=== PATIENT | male | born 1965 | race African-American/Black ===

== ENCOUNTER 2016-06-20 05:29 | Emergency (ER) | payer MEDICAID, OTHER ==
[~2016-06-20 05:29] MED LIST: ABIL5TAB5 PO; AMBI10TA PO; COLA100C PO; DOCU10CA PO; ECOT81TA5 PO; LAMI25TA PO; LAMICTAL PO; LIPI80TA PO; MAPA325T2 PO; METF500T PO; PREG50CA PO; QUET1TAB11 PO; RISP2TAB30 PO; RISP3TAB3 PO; RISP50INJ IM; SERO1TAB PO; SERO1TAB2 PO; TRAZ300T2 PO; ZEST1TAB5 PO
[2016-06-20] MEDS ORDERED: dexameTHASONE 20 MG/5 ML VIAL (J1100) As Ordered ONE (05:49)
[2016-06-20] MEDS ORDERED: LEVALBUTEROL 1.25 MG/0.5 ML CONCENTRATE NEB As Ordered ONE (05:50)
--- NOTE | 2016-06-20 06:51 | EDDOCDS ---
Physician Documentation [facility] Name: Akbar Ulloa Age: 51 yrs Sex: Male : 1965 Arrival Date: 06/20/2016 Time: 05:29 Bed 5 Private MD: Disposition: 06/20/16 06:39 Discharged to Home/Self Care. Impression: Simple chronic bronchitis, Nicotine dependence, cigarettes, Hallucinogen abuse. - Condition is Stable. - Prescriptions for Prednisone 20 mg Oral Tablet - take 3 tablet by ORAL route once daily for 5 days; 15 tablet. - Medication Reconciliation, Local Pharmacy Hours form. - Follow up: Private Physician; When: Call to arrange an appointment; Reason: Recheck today's complaints. - Problem is chronic. - Symptoms have improved. Historical: - Allergies: No known drug Allergies; - Home Meds: 1. lisinopril 5 mg Oral tab once daily 2. metformin 1,000 mg Oral tr24 1 tab once daily 3. Seroquel 400 mg Oral tab 4. trazodone 300 mg Oral tab 1 tab - PMHx: Diabetes - NIDDM: controlled; Bipolar disorder; Schizophrenia; - PSHx: finger surgery; - Social history: Smoking status: Patient uses tobacco products, heavy tobacco smoker. Patient uses alcohol street drugs, [place], No barriers to communication noted, The patient speaks fluent Djiboutian, Speaks appropriately for age. - Family history: Not pertinent. - : The pt / caregiver states he / she is not on anticoagulants. Home medication list is obtained from the patient. - Exposure Risk Screening:: None identified. Vital Signs: 06/20 05:40 BP 151 / 97; Pulse 118; Resp 22; Temp 96.9(O); Pulse Ox 99% on 2 lpm NC; Weight 145.6 nn1 kg / 320.99 lbs; Height 6 ft. 0 in. (182.88 cm); Pain 0/10; 06:43 BP 148 / 88; Pulse 99; Resp 18 S; Temp 97.0(TE); Pulse Ox 96% on R/A; af2 05:40 Body Mass Index 43.53 (145.60 kg, 182.88 cm) nn1 MDM: 05:44 IV Saline Lock ordered. cs11 05:44 Dexamethasone 15 mg IV at bolus once ordered. cs11 05:44 Levalbuterol 1.25 mg Nebulizer every 15 minutes x3 ordered. cs11 05:44 Call Respiratory ordered. cs11 05:44 Chest, 1 View Ordered. EDMS 05:45 Call Respiratory complete. ml3 05:47 ECG WITH READING ER PHYS+CARDIAG ordered. EDMS 06:14 Financial registration complete. pm4 06:22 [facility] Payment Agreement was scanned into [employer] and attached to record. pm4 Administered Medications: 05:52 Drug: Levalbuterol 1.25 mg [levalbuterol 1.25 mg/0.5 mL solution for nebulization (0.5 bb3 mL)] Route: Nebulizer; 05:52 Drug: Levalbuterol 1.25 mg [levalbuterol 1.25 mg/0.5 mL solution for nebulization (0.5 bb3 mL)] Route: Nebulizer; 05:55 Drug: Dexamethasone 15 mg [dexamethasone 4 mg/mL injection solution] Route: IV; Rate: af2 bolus; Site: left antecubital; 06:13 Drug: Levalbuterol 1.25 mg [levalbuterol 1.25 mg/0.5 mL solution for nebulization (0.5 bb3 mL)] Route: Nebulizer; 06:14 Follow up: lung sounds increased throughout with coarse expiratory wheezes in all bb3 malhotra. Pt states his breathing feels better. Pt has a strong hacking non productive cough Signatures: Dispatcher MedHost EDMS Lo GerberMichaelaMeka, Investigative Agent Unit ml3 Joe Nunez, DO DO cs11 Genoveva Boothe RN RN af2 Raghav Shipley RN RN nn1 Eze Vigil, Reg Reg pm4 Jose Willis bb3 The chart was reviewed and I authenticate all verbal orders and agree with the evaluation and treatment provided.Attachments: 06:22 [facility] Payment Agreement pm4 MTDD
--- NOTE | 2016-06-20 06:51 | EDDOCDS ---
Nurse's Notes [facility] Name: Akbar Ulloa Age: 51 yrs Sex: Male : 1965 Arrival Date: 06/20/2016 Time: 05:29 Bed 5 Private MD: Diagnosis: Simple chronic bronchitis;Nicotine dependence, cigarettes;Hallucinogen abuse Presentation: 06/20 05:34 Presenting complaint: EMS states: SOB that began around 0230, patient has hx of chronic nn1 bronchitis. Patient admits to "2 20 pieces of leona" and drinking alcohol. Patient alert and oriented x 3. Patient denies chest pain. Adult Sepsis Screening: The patient does not have new or worsening altered mentation. Patient's respiratory rate is less than 22. Systolic blood pressure is greater than 100. Patient has a qSOFA score of 0- Negative Sepsis Screen. Suicide/Homicide risk assessment- the patient denies having any suicidal and/or homicidal ideations and does not present with any other emotional, behavioral or mental health complaints. Status: Patient is not a home service consultant or dependent. Transition of care: patient was not received from another setting of care. 05:34 Acuity: ELSA Level 3 nn1 05:34 Method Of Arrival: Ambulance nn1 Triage Assessment: 05:43 General: Appears in no apparent distress, comfortable, Behavior is appropriate for age, af2 cooperative, pt talking and laughing.. Pain: Denies pain. HIV screening NA for this visit Offered previously. Respiratory: Onset: The symptoms/episode began/occurred just prior to arrival, Airway is patent Respiratory effort is even, unlabored. Respiratory: Reports shortness of breath at rest. Derm: Skin is normal. Historical: - Allergies: No known drug Allergies; - Home Meds: 1. lisinopril 5 mg Oral tab once daily 2. metformin 1,000 mg Oral tr24 1 tab once daily 3. Seroquel 400 mg Oral tab 4. trazodone 300 mg Oral tab 1 tab - PMHx: Diabetes - NIDDM: controlled; Bipolar disorder; Schizophrenia; - PSHx: finger surgery; - Social history: Smoking status: Patient uses tobacco products, heavy tobacco smoker. Patient uses alcohol street drugs, [place], No barriers to communication noted, The patient speaks fluent Thai, Speaks appropriately for age. - Family history: Not pertinent. - : The pt / caregiver states he / she is not on anticoagulants. Home medication list is obtained from the patient. - Exposure Risk Screening:: None identified. Screenin:46 Screening information is obtained from the patient. Fall risk: No risks identified. af2 Assistance ADL's: requires no assistance with activities of daily living. Abuse/DV Screen: The patient / caregiver reports he/she is: not in a situation that causes fear, pain or injury. Nutritional screening: No deficits noted. Advance Directives: Currently, there is no health care proxy. home support is adequate. Assessment: 05:44 General: Appears in no apparent distress, Behavior is cooperative, pt states to this af2 commercial insurance underwriter "can I go smoke a cigarette?" informed pt of hospital smoking police.. General: admits to using leona this evening.. Neurological: Level of Consciousness is awake, alert, obeys commands, Oriented to person, place, time. Cardiovascular: Heart tones S1 S2 present. Respiratory: Airway is patent Respiratory effort is even, unlabored, Breath sounds with wheezes bilaterally. Derm: Skin is normal. 06:09 General: pt pulled PIV out and ripped monitor off, states "I want to go out and smoke." af2 provider notified. pt states he will stay at this time.. Vital Signs: 05:40 BP 151 / 97; Pulse 118; Resp 22; Temp 96.9(O); Pulse Ox 99% on 2 lpm NC; Weight 145.6 nn1 kg; Height 6 ft. 0 in. (182.88 cm); Pain 0/10; 06:43 BP 148 / 88; Pulse 99; Resp 18 S; Temp 97.0(TE); Pulse Ox 96% on R/A; af2 05:40 Body Mass Index 43.53 (145.60 kg, 182.88 cm) nn1 Vitals: 05:40 Log In Time N/A - ambulance arrival. nn1 ED Course: 05:30 Patient visited by Ynes Gerber Assistant Administrator. ml3 05:30 Unknown Pcp is Private Physician. ml3 05:30 No Pcp is Private Physician. ml3 05:30 Patient moved to Waiting ml3 05:30 Patient moved to 5 ml3 05:37 Triage Initiated nn1 05:38 Joe Nunez DO is Attending Physician. cs11 05:38 Patient visited by Joe Nunez DO. cs11 05:46 The patient / caregiver is instructed regarding the plan of care and ED course. Patient af2 has correct armband on for positive identification. 05:46 Maintain field IV. Dressing intact. Good blood return noted. Site clean & dry. Gauge & af2 site: #20G to left ac.. 05:47 Patient visited by Genoveva Boothe RN. af2 05:58 EKG done. (by ED staff). Reviewed by Joe Nunez DO. kb5 06:11 Patient visited by Genoveva Boothe RN. af2 06:22 [facility] Payment Agreement was scanned into [employer] and attached to record. pm4 06:43 Discontinued IV lock intact, bleeding controlled, pressure dressing applied, No af2 redness/swelling at site. No procedures done that require assistance. Administered Medications: 05:52 Drug: Levalbuterol 1.25 mg [levalbuterol 1.25 mg/0.5 mL solution for nebulization (0.5 bb3 mL)] Route: Nebulizer; 05:52 Drug: Levalbuterol 1.25 mg [levalbuterol 1.25 mg/0.5 mL solution for nebulization (0.5 bb3 mL)] Route: Nebulizer; 05:55 Drug: Dexamethasone 15 mg [dexamethasone 4 mg/mL injection solution] Route: IV; Rate: af2 bolus; Site: left antecubital; 06:13 Drug: Levalbuterol 1.25 mg [levalbuterol 1.25 mg/0.5 mL solution for nebulization (0.5 bb3 mL)] Route: Nebulizer; 06:14 Follow up: lung sounds increased throughout with coarse expiratory wheezes in all bb3 malhotra. Pt states his breathing feels better. Pt has a strong hacking non productive cough Intake: RT: 05:51 Oxygen is room air. Respiratory: Respiratory effort is even, unlabored, Respiratory bb3 pattern is regular symmetrical, Breath sounds are diminished Breath sounds with wheezes Reports cough that is. 05:52 Initial Med Neb Given as ordered Patient was instructed and evaluated on procedure bb3 Subsequent Med Neb Given as ordered Patient was reinforced on procedure. 06:11 Respiratory: lung sounds increased throughout with coarse expiratory wheezes in all bb3 malhotra. Pt states his breathing feels better. Pt has a strong hacking non productive cough. 06:13 Subsequent Med Neb Given as ordered. bb3 06:15 Respiratory: at start of third tx, pt put down nebulizer and put on coat to go outside bb3 and "call his brother." Instructed patient to please sit back in bed and finish breathing tx. Pt was compliant and non combative. Pt does not follow instructions well when taking neb tx. Order Results: There are currently no results for this order. Outcome: 06:39 Discharge ordered by Provider. cs11 06:43 Discharge Assessment: Patient awake, alert and oriented x 3. No cognitive and/or af2 functional deficits noted. Patient verbalized understanding of disposition instructions. patient administered narcotics - no. The following High Risk Discharge criteria are identified: None. Discharged to home ambulatory. Condition: stable. Discharge instructions given to patient, Instructed on discharge instructions, follow up and referral plans. medication usage, Demonstrated understanding of instructions, medications, Pt was receptive of discharge instructions/ teaching. No special radiology studies were completed. Property :Personal belongings accompany Pt. 06:50 Patient left the ED. af2 Signatures: Ynes Gerber, Assistant Administrator Unit ml3 Babatunde Blandon, JINRIKSHA DRIVER JINRIKSHA DRIVER kb5 Jose Willis bb3 Joe Nunez, DO DO cs11 Genoveva Boothe RN RN af2 Raghav Shipley,EDWARD RN nn1 Eze Vigil, Reg Reg pm4 MTDD
--- NOTE | 2016-06-20 07:39 | ECGEPIP ---
Stationary ECG Study [facility] - ED Test Date: 2016-06-20 Pat Name: BRIGID FLORES Department: Room: - Gender: M School Lunch Monitor: ZOE : 1965 Requested By: KELLY BLAS Order Number: [id number] Reading MD: Magui Parnell Measurements Intervals [place] Rate: 117 P: 35 DC: 172 QRS: 2 QRSD: 84 T: 22 QT: 328 QTc: 459 Interpretive Statements SINUS TACHYCARDIA NONSPECIFIC T-WAVE ABNORMALITY ABNORMAL RHYTHM ECG INCREASED RATE 11/15/15 Electronically Signed On 06-20-2016 7:38:43 EST by Magui Parnell
--- NOTE | 2016-06-20 08:29 | REP ---
Portable chest x-ray: Upright semi-erect view. History: Shortness of breath. Findings: The lungs are symmetrically aerated. Pleural angles are sharp. Heart size is normal. No infiltrate is seen. Pulmonary vasculature is not increased. This radiograph is exposed at a somewhat lordotic angle. There is minimal plate-like atelectasis in the right base. Impression: Minimal plate-like atelectasis right base. Otherwise no acute disease. Signed by Bebeto Garcia MD 06/20/2016 09:50 A
--- NOTE | 2016-06-22 07:51 | EDDOCDS ---
Nurse's Notes [facility] Name: Akbar Ulloa Age: 51 yrs Sex: Male : 1965 Arrival Date: 06/20/2016 Time: 05:29 Bed 5 Private MD: Diagnosis: Simple chronic bronchitis;Nicotine dependence, cigarettes;Hallucinogen abuse Presentation: 06/20 05:34 Presenting complaint: EMS states: SOB that began around 0230, patient has hx of chronic nn1 bronchitis. Patient admits to "2 20 pieces of leona" and drinking alcohol. Patient alert and oriented x 3. Patient denies chest pain. Adult Sepsis Screening: The patient does not have new or worsening altered mentation. Patient's respiratory rate is less than 22. Systolic blood pressure is greater than 100. Patient has a qSOFA score of 0- Negative Sepsis Screen. Suicide/Homicide risk assessment- the patient denies having any suicidal and/or homicidal ideations and does not present with any other emotional, behavioral or mental health complaints. 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 Transition of care: patient was not received from another setting of care. 05:34 Acuity: ELSA Level 3 nn1 05:34 Method Of Arrival: Ambulance nn1 Triage Assessment: 05:43 General: Appears in no apparent distress, comfortable, Behavior is appropriate for age, af2 cooperative, pt talking and laughing.. Pain: Denies pain. HIV screening NA for this visit Offered previously. Respiratory: Onset: The symptoms/episode began/occurred just prior to arrival, Airway is patent Respiratory effort is even, unlabored. Respiratory: Reports shortness of breath at rest. Derm: Skin is normal. Historical: - Allergies: No known drug Allergies; - Home Meds: 1. lisinopril 5 mg Oral tab once daily 2. metformin 1,000 mg Oral tr24 1 tab once daily 3. Seroquel 400 mg Oral tab 4. trazodone 300 mg Oral tab 1 tab - PMHx: Diabetes - NIDDM: controlled; Bipolar disorder; Schizophrenia; - PSHx: finger surgery; - Social history: Smoking status: Patient uses tobacco products, heavy tobacco smoker. Patient uses alcohol street drugs, [place], No barriers to communication noted, The patient speaks fluent Frisian, Speaks appropriately for age. - Family history: Not pertinent. - : The pt / caregiver states he / she is not on anticoagulants. Home medication list is obtained from the patient. - Exposure Risk Screening:: None identified. Screenin:46 Screening information is obtained from the patient. Fall risk: No risks identified. af2 Assistance ADL's: requires no assistance with activities of daily living. Abuse/DV Screen: The patient / caregiver reports he/she is: not in a situation that causes fear, pain or injury. Nutritional screening: No deficits noted. Advance Directives: Currently, there is no health care proxy. home support is adequate. Assessment: 05:44 General: Appears in no apparent distress, Behavior is cooperative, pt states to this af2 contract writer "can I go smoke a cigarette?" informed pt of hospital smoking police.. General: admits to using leona this evening.. Neurological: Level of Consciousness is awake, alert, obeys commands, Oriented to person, place, time. Cardiovascular: Heart tones S1 S2 present. Respiratory: Airway is patent Respiratory effort is even, unlabored, Breath sounds with wheezes bilaterally. Derm: Skin is normal. 06:09 General: pt pulled PIV out and ripped monitor off, states "I want to go out and smoke." af2 provider notified. pt states he will stay at this time.. Vital Signs: 05:40 BP 151 / 97; Pulse 118; Resp 22; Temp 96.9(O); Pulse Ox 99% on 2 lpm NC; Weight 145.6 nn1 kg; Height 6 ft. 0 in. (182.88 cm); Pain 0/10; 06:43 BP 148 / 88; Pulse 99; Resp 18 S; Temp 97.0(TE); Pulse Ox 96% on R/A; af2 05:40 Body Mass Index 43.53 (145.60 kg, 182.88 cm) nn1 Vitals: 05:40 Log In Time N/A - ambulance arrival. nn1 ED Course: 05:30 Patient visited by Ynes Gerber Product Handler. ml3 05:30 Unknown Pcp is Private Physician. ml3 05:30 No Pcp is Private Physician. ml3 05:30 Patient moved to Waiting ml3 05:30 Patient moved to 5 ml3 05:37 Triage Initiated nn1 05:38 Kelly Blas DO is Attending Physician. cs11 05:38 Patient visited by Kelly Blas DO. cs11 05:46 The patient / caregiver is instructed regarding the plan of care and ED course. Patient af2 has correct armband on for positive identification. 05:46 Maintain field IV. Dressing intact. Good blood return noted. Site clean & dry. Gauge & af2 site: #20G to left ac.. 05:47 Patient visited by Genoveva Boothe RN. af2 05:58 EKG done. (by ED staff). Reviewed by Kelly Blas DO. kb5 06:11 Patient visited by Genoveva Boothe RN. af2 06:22 [facility] Payment Agreement was scanned into [employer] and attached to record. pm4 06:43 Discontinued IV lock intact, bleeding controlled, pressure dressing applied, No af2 redness/swelling at site. No procedures done that require assistance. 07:53 EKG-ADULT Returned. EDMS 08:38 Chest, 1 View Returned. EDMS 13:35 T-Sheet-- Draft Copy was scanned into [employer] and attached to record. gb 13:35 ECG/EKG was scanned into [employer] and attached to record. gb 13:36 PCR was scanned into [employer] and attached to record. gb 23:49 Patient name changed from Akbar\\S\\Oniel\\S\\[place]\\S\\ to Akbar\\S\\F\\S\\[place]. EDMS 06/21 07:42 PCR was scanned into [employer] and attached to record. gb Administered Medications: 06/20 05:52 Drug: Levalbuterol 1.25 mg [levalbuterol 1.25 mg/0.5 mL solution for nebulization (0.5 bb3 mL)] Route: Nebulizer; 05:52 Drug: Levalbuterol 1.25 mg [levalbuterol 1.25 mg/0.5 mL solution for nebulization (0.5 bb3 mL)] Route: Nebulizer; 05:55 Drug: Dexamethasone 15 mg [dexamethasone 4 mg/mL injection solution] Route: IV; Rate: af2 bolus; Site: left antecubital; 06:13 Drug: Levalbuterol 1.25 mg [levalbuterol 1.25 mg/0.5 mL solution for nebulization (0.5 bb3 mL)] Route: Nebulizer; 06:14 Follow up: lung sounds increased throughout with coarse expiratory wheezes in all bb3 malhotra. Pt states his breathing feels better. Pt has a strong hacking non productive cough Intake: RT: 05:51 Oxygen is room air. Respiratory: Respiratory effort is even, unlabored, Respiratory bb3 pattern is regular symmetrical, Breath sounds are diminished Breath sounds with wheezes Reports cough that is. 05:52 Initial Med Neb Given as ordered Patient was instructed and evaluated on procedure bb3 Subsequent Med Neb Given as ordered Patient was reinforced on procedure. 06:11 Respiratory: lung sounds increased throughout with coarse expiratory wheezes in all bb3 malhotra. Pt states his breathing feels better. Pt has a strong hacking non productive cough. 06:13 Subsequent Med Neb Given as ordered. bb3 06:15 Respiratory: at start of third tx, pt put down nebulizer and put on coat to go outside bb3 and "call his brother." Instructed patient to please sit back in bed and finish breathing tx. Pt was compliant and non combative. Pt does not follow instructions well when taking neb tx. Order Results: Radiology Order: Chest, 1 View Test: Chest, 1 View REASON FOR EXAMINATION: Shortness of Breath; Portable chest x-ray: Upright semi-erect view.; ; History: Shortness of breath.; ; Findings: The lungs are symmetrically aerated. Pleural angles are sharp. Heart; size is normal. No infiltrate is seen. Pulmonary vasculature is not increased.; This radiograph is exposed at a somewhat lordotic angle. There is minimal; plate-like atelectasis in the right base.; ; Impression:; ; Minimal plate-like atelectasis right base. Otherwise no acute disease.; ; ; Signed by; Bebeto Garcia MD 06/20/2016 09:50 A; Radiology Order: EKG-ADULT Test: EKG-ADULT REASON FOR EXAMINATION: Shortness of Breath; Stationary ECG Study; [facility] - ED; ; Test Date: 2016-06-20; Pat Name: AKBAR ULLOA Department:; Room: -; Gender: M Blueprint Processor: ZOE; : 1965 Requested By: KELLY BLAS; Order Number: [id number] Eunice MD: Magui Parnell; Measurements; Intervals [place]; Rate: 117 P: 35; RI: 172 QRS: 2; QRSD: 84 T: 22; QT: 328; QTc: 459; Interpretive Statements; SINUS TACHYCARDIA; NONSPECIFIC T-WAVE ABNORMALITY; ABNORMAL RHYTHM ECG; INCREASED RATE 11/15/15; Electronically Signed On 06-20-2016 7:38:43 EST by Magui Parnell; Outcome: 06:39 Discharge ordered by Provider. cs11 06:43 Discharge Assessment: Patient awake, alert and oriented x 3. No cognitive and/or af2 functional deficits noted. Patient verbalized understanding of disposition instructions. patient administered narcotics - no. The following High Risk Discharge criteria are identified: None. Discharged to home ambulatory. Condition: stable. Discharge instructions given to patient, Instructed on discharge instructions, follow up and referral plans. medication usage, Demonstrated understanding of instructions, medications, Pt was receptive of discharge instructions/ teaching. No special radiology studies were completed. Property :Personal belongings accompany Pt. 06:50 Patient left the ED. af2 Signatures: Dispatcher [employer] EDMS Patricia Boyce, Reg Reg gb Ynes Gerber, Product Handler Unit ml3 Babatunde Blandon, JUDGE'S CLERK JUDGE'S CLERK kb5 Jose Willis bb3 Kelly Blas, DO DO cs11 Genoveva Boothe RN RN af2 Raghav Shipley RN RN nn1 Eze Vigil, Reg Reg pm4 Chart Complete MTDD
--- NOTE | 2016-06-22 07:51 | EDDOCDS ---
Physician Documentation [facility] Name: Akbar Ulloa Age: 51 yrs Sex: Male : 1965 Arrival Date: 06/20/2016 Time: 05:29 Bed 5 Private MD: Disposition: 06/20/16 06:39 Discharged to Home/Self Care. Impression: Simple chronic bronchitis, Nicotine dependence, cigarettes, Hallucinogen abuse. - Condition is Stable. - Prescriptions for Prednisone 20 mg Oral Tablet - take 3 tablet by ORAL route once daily for 5 days; 15 tablet. - Medication Reconciliation, Local Pharmacy Hours form. - Follow up: Private Physician; When: Call to arrange an appointment; Reason: Recheck today's complaints. - Problem is chronic. - Symptoms have improved. Historical: - Allergies: No known drug Allergies; - Home Meds: 1. lisinopril 5 mg Oral tab once daily 2. metformin 1,000 mg Oral tr24 1 tab once daily 3. Seroquel 400 mg Oral tab 4. trazodone 300 mg Oral tab 1 tab - PMHx: Diabetes - NIDDM: controlled; Bipolar disorder; Schizophrenia; - PSHx: finger surgery; - Social history: Smoking status: Patient uses tobacco products, heavy tobacco smoker. Patient uses alcohol street drugs, Sigrid, No barriers to communication noted, The patient speaks fluent Botswanan, Speaks appropriately for age. - Family history: Not pertinent. - : The pt / caregiver states he / she is not on anticoagulants. Home medication list is obtained from the patient. - Exposure Risk Screening:: None identified. Vital Signs: 06/20 05:40 BP 151 / 97; Pulse 118; Resp 22; Temp 96.9(O); Pulse Ox 99% on 2 lpm NC; Weight 145.6 nn1 kg / 320.99 lbs; Height 6 ft. 0 in. (182.88 cm); Pain 0/10; 06:43 BP 148 / 88; Pulse 99; Resp 18 S; Temp 97.0(TE); Pulse Ox 96% on R/A; af2 05:40 Body Mass Index 43.53 (145.60 kg, 182.88 cm) nn1 MDM: 05:44 IV Saline Lock ordered. cs11 05:44 Dexamethasone 15 mg IV at bolus once ordered. cs11 05:44 Levalbuterol 1.25 mg Nebulizer every 15 minutes x3 ordered. cs11 05:44 Call Respiratory ordered. cs11 05:44 Chest, 1 View Ordered. EDMS 05:45 Call Respiratory complete. ml3 05:47 ECG WITH READING ER PHYS+CARDIAG ordered. EDMS 06:14 Financial registration complete. pm4 06:22 [facility] Payment Agreement was scanned into [employer] and attached to record. pm4 13:35 T-Sheet-- Draft Copy was scanned into [employer] and attached to record. gb 13:35 ECG/EKG was scanned into [employer] and attached to record. gb 13:36 PCR was scanned into [employer] and attached to record. gb 06/21 07:42 PCR was scanned into [employer] and attached to record. gb Administered Medications: 06/20 05:52 Drug: Levalbuterol 1.25 mg [levalbuterol 1.25 mg/0.5 mL solution for nebulization (0.5 bb3 mL)] Route: Nebulizer; 05:52 Drug: Levalbuterol 1.25 mg [levalbuterol 1.25 mg/0.5 mL solution for nebulization (0.5 bb3 mL)] Route: Nebulizer; 05:55 Drug: Dexamethasone 15 mg [dexamethasone 4 mg/mL injection solution] Route: IV; Rate: af2 bolus; Site: left antecubital; 06:13 Drug: Levalbuterol 1.25 mg [levalbuterol 1.25 mg/0.5 mL solution for nebulization (0.5 bb3 mL)] Route: Nebulizer; 06:14 Follow up: lung sounds increased throughout with coarse expiratory wheezes in all bb3 malhotra. Pt states his breathing feels better. Pt has a strong hacking non productive cough Signatures: Dispatcher [employer] EDMS Patricia Boyce, Reg Reg gb Ynes Gerber, Wood Lather Unit ml3 Joe Nunez, DO cs11 Genoveva Boothe,RN RN af2 Raghav Shipley,RN RN nn1 Eze Vigil, Reg Reg pm4 Jose Willis bb3 The chart was reviewed and I authenticate all verbal orders and agree with the evaluation and treatment provided.Attachments: 06:22 [facility] Payment Agreement pm4 13:35 T-Sheet-- Draft Copy gb 13:35 ECG/EKG gb Chart Complete MTDD
--- NOTE | 2016-06-22 07:51 | EDDOCDS ---
Physician Documentation [facility] Name: Akbar Ulloa Age: 51 yrs Sex: Male : 1965 Arrival Date: 06/20/2016 Time: 05:29 Bed 5 Private MD: Disposition: 06/20/16 06:39 Discharged to Home/Self Care. Impression: Simple chronic bronchitis, Nicotine dependence, cigarettes, Hallucinogen abuse. - Condition is Stable. - Prescriptions for Prednisone 20 mg Oral Tablet - take 3 tablet by ORAL route once daily for 5 days; 15 tablet. - Medication Reconciliation, Local Pharmacy Hours form. - Follow up: Private Physician; When: Call to arrange an appointment; Reason: Recheck today's complaints. - Problem is chronic. - Symptoms have improved. Historical: - Allergies: No known drug Allergies; - Home Meds: 1. lisinopril 5 mg Oral tab once daily 2. metformin 1,000 mg Oral tr24 1 tab once daily 3. Seroquel 400 mg Oral tab 4. trazodone 300 mg Oral tab 1 tab - PMHx: Diabetes - NIDDM: controlled; Bipolar disorder; Schizophrenia; - PSHx: finger surgery; - Social history: Smoking status: Patient uses tobacco products, heavy tobacco smoker. Patient uses alcohol street drugs, Sigrid, No barriers to communication noted, The patient speaks fluent Cypriot, Speaks appropriately for age. - Family history: Not pertinent. - : The pt / caregiver states he / she is not on anticoagulants. Home medication list is obtained from the patient. - Exposure Risk Screening:: None identified. Vital Signs: 06/20 05:40 BP 151 / 97; Pulse 118; Resp 22; Temp 96.9(O); Pulse Ox 99% on 2 lpm NC; Weight 145.6 nn1 kg / 320.99 lbs; Height 6 ft. 0 in. (182.88 cm); Pain 0/10; 06:43 BP 148 / 88; Pulse 99; Resp 18 S; Temp 97.0(TE); Pulse Ox 96% on R/A; af2 05:40 Body Mass Index 43.53 (145.60 kg, 182.88 cm) nn1 MDM: 05:44 IV Saline Lock ordered. cs11 05:44 Dexamethasone 15 mg IV at bolus once ordered. cs11 05:44 Levalbuterol 1.25 mg Nebulizer every 15 minutes x3 ordered. cs11 05:44 Call Respiratory ordered. cs11 05:44 Chest, 1 View Ordered. EDMS 05:45 Call Respiratory complete. ml3 05:47 ECG WITH READING ER PHYS+CARDIAG ordered. EDMS 06:14 Financial registration complete. pm4 06:22 [facility] Payment Agreement was scanned into [employer] and attached to record. pm4 13:35 T-Sheet-- Draft Copy was scanned into [employer] and attached to record. gb 13:35 ECG/EKG was scanned into [employer] and attached to record. gb 13:36 PCR was scanned into [employer] and attached to record. gb 06/21 07:42 PCR was scanned into [employer] and attached to record. gb Administered Medications: 06/20 05:52 Drug: Levalbuterol 1.25 mg [levalbuterol 1.25 mg/0.5 mL solution for nebulization (0.5 bb3 mL)] Route: Nebulizer; 05:52 Drug: Levalbuterol 1.25 mg [levalbuterol 1.25 mg/0.5 mL solution for nebulization (0.5 bb3 mL)] Route: Nebulizer; 05:55 Drug: Dexamethasone 15 mg [dexamethasone 4 mg/mL injection solution] Route: IV; Rate: af2 bolus; Site: left antecubital; 06:13 Drug: Levalbuterol 1.25 mg [levalbuterol 1.25 mg/0.5 mL solution for nebulization (0.5 bb3 mL)] Route: Nebulizer; 06:14 Follow up: lung sounds increased throughout with coarse expiratory wheezes in all bb3 malhotra. Pt states his breathing feels better. Pt has a strong hacking non productive cough Signatures: Dispatcher [employer] EDMS Patricia Boyce, Reg Reg gb Ynes Gerber, Quoter Unit ml3 Joe Nunez, DO cs11 Genoveva Boothe,RN RN af2 Raghav Shipley,RN RN nn1 Eze Vigil, Reg Reg pm4 Jose Willis bb3 The chart was reviewed and I authenticate all verbal orders and agree with the evaluation and treatment provided.Attachments: 06:22 [facility] Payment Agreement pm4 13:35 T-Sheet-- Draft Copy gb 13:35 ECG/EKG gb Chart Complete MTDD
--- NOTE | 2016-06-22 20:06 | EDDOCDS ---
Physician Documentation [facility] Name: Akbar Ulloa Age: 51 yrs Sex: Male : 1965 Arrival Date: 06/20/2016 Time: 05:29 Bed 5 Private MD: Disposition: 06/20/16 06:39 Discharged to Home/Self Care. Impression: Simple chronic bronchitis, Nicotine dependence, cigarettes, Hallucinogen abuse. - Condition is Stable. - Prescriptions for Prednisone 20 mg Oral Tablet - take 3 tablet by ORAL route once daily for 5 days; 15 tablet. - Medication Reconciliation, Local Pharmacy Hours form. - Follow up: Private Physician; When: Call to arrange an appointment; Reason: Recheck today's complaints. - Problem is chronic. - Symptoms have improved. Historical: - Allergies: No known drug Allergies; - Home Meds: 1. lisinopril 5 mg Oral tab once daily 2. metformin 1,000 mg Oral tr24 1 tab once daily 3. Seroquel 400 mg Oral tab 4. trazodone 300 mg Oral tab 1 tab - PMHx: Diabetes - NIDDM: controlled; Bipolar disorder; Schizophrenia; - PSHx: finger surgery; - Social history: Smoking status: Patient uses tobacco products, heavy tobacco smoker. Patient uses alcohol street drugs, Sigrid, No barriers to communication noted, The patient speaks fluent Greenlandic, Speaks appropriately for age. - Family history: Not pertinent. - : The pt / caregiver states he / she is not on anticoagulants. Home medication list is obtained from the patient. - Exposure Risk Screening:: None identified. Vital Signs: 06/20 05:40 BP 151 / 97; Pulse 118; Resp 22; Temp 96.9(O); Pulse Ox 99% on 2 lpm NC; Weight 145.6 nn1 kg / 320.99 lbs; Height 6 ft. 0 in. (182.88 cm); Pain 0/10; 06:43 BP 148 / 88; Pulse 99; Resp 18 S; Temp 97.0(TE); Pulse Ox 96% on R/A; af2 05:40 Body Mass Index 43.53 (145.60 kg, 182.88 cm) nn1 MDM: 05:44 IV Saline Lock ordered. cs11 05:44 Dexamethasone 15 mg IV at bolus once ordered. cs11 05:44 Levalbuterol 1.25 mg Nebulizer every 15 minutes x3 ordered. cs11 05:44 Call Respiratory ordered. cs11 05:44 Chest, 1 View Ordered. EDMS 05:45 Call Respiratory complete. ml3 05:47 ECG WITH READING ER PHYS+CARDIAG ordered. EDMS 06:14 Financial registration complete. pm4 06:22 [facility] Payment Agreement was scanned into [employer] and attached to record. pm4 13:35 T-Sheet-- Draft Copy was scanned into [employer] and attached to record. gb 13:35 ECG/EKG was scanned into [employer] and attached to record. gb 13:36 PCR was scanned into [employer] and attached to record. gb 06/21 07:42 PCR was scanned into [employer] and attached to record. gb Administered Medications: 06/20 05:52 Drug: Levalbuterol 1.25 mg [levalbuterol 1.25 mg/0.5 mL solution for nebulization (0.5 bb3 mL)] Route: Nebulizer; 05:52 Drug: Levalbuterol 1.25 mg [levalbuterol 1.25 mg/0.5 mL solution for nebulization (0.5 bb3 mL)] Route: Nebulizer; 05:55 Drug: Dexamethasone 15 mg [dexamethasone 4 mg/mL injection solution] Route: IV; Rate: af2 bolus; Site: left antecubital; 06:13 Drug: Levalbuterol 1.25 mg [levalbuterol 1.25 mg/0.5 mL solution for nebulization (0.5 bb3 mL)] Route: Nebulizer; 06:14 Follow up: lung sounds increased throughout with coarse expiratory wheezes in all bb3 malhotra. Pt states his breathing feels better. Pt has a strong hacking non productive cough Signatures: Dispatcher [employer] EDMS Patricia Boyce, Reg Reg gb Ynes Gerber, Airport Operations Specialist Unit ml3 Joe Nunez, DO cs11 Genoveva Boothe,RN RN af2 Raghav Shipley,RN RN nn1 Eze Vigil, Reg Reg pm4 Jose Willis bb3 The chart was reviewed and I authenticate all verbal orders and agree with the evaluation and treatment provided.Attachments: 06:22 [facility] Payment Agreement pm4 13:35 T-Sheet-- Draft Copy gb 13:35 ECG/EKG gb Chart Complete MTDD
--- NOTE | 2016-06-22 20:06 | EDDOCDS ---
Physician Documentation [facility] Name: Akbar Ulloa Age: 51 yrs Sex: Male : 1965 Arrival Date: 06/20/2016 Time: 05:29 Bed 5 Private MD: Disposition: 06/20/16 06:39 Discharged to Home/Self Care. Impression: Simple chronic bronchitis, Nicotine dependence, cigarettes, Hallucinogen abuse. - Condition is Stable. - Prescriptions for Prednisone 20 mg Oral Tablet - take 3 tablet by ORAL route once daily for 5 days; 15 tablet. - Medication Reconciliation, Local Pharmacy Hours form. - Follow up: Private Physician; When: Call to arrange an appointment; Reason: Recheck today's complaints. - Problem is chronic. - Symptoms have improved. Historical: - Allergies: No known drug Allergies; - Home Meds: 1. lisinopril 5 mg Oral tab once daily 2. metformin 1,000 mg Oral tr24 1 tab once daily 3. Seroquel 400 mg Oral tab 4. trazodone 300 mg Oral tab 1 tab - PMHx: Diabetes - NIDDM: controlled; Bipolar disorder; Schizophrenia; - PSHx: finger surgery; - Social history: Smoking status: Patient uses tobacco products, heavy tobacco smoker. Patient uses alcohol street drugs, Sigrid, No barriers to communication noted, The patient speaks fluent Georgian, Speaks appropriately for age. - Family history: Not pertinent. - : The pt / caregiver states he / she is not on anticoagulants. Home medication list is obtained from the patient. - Exposure Risk Screening:: None identified. Vital Signs: 06/20 05:40 BP 151 / 97; Pulse 118; Resp 22; Temp 96.9(O); Pulse Ox 99% on 2 lpm NC; Weight 145.6 nn1 kg / 320.99 lbs; Height 6 ft. 0 in. (182.88 cm); Pain 0/10; 06:43 BP 148 / 88; Pulse 99; Resp 18 S; Temp 97.0(TE); Pulse Ox 96% on R/A; af2 05:40 Body Mass Index 43.53 (145.60 kg, 182.88 cm) nn1 MDM: 05:44 IV Saline Lock ordered. cs11 05:44 Dexamethasone 15 mg IV at bolus once ordered. cs11 05:44 Levalbuterol 1.25 mg Nebulizer every 15 minutes x3 ordered. cs11 05:44 Call Respiratory ordered. cs11 05:44 Chest, 1 View Ordered. EDMS 05:45 Call Respiratory complete. ml3 05:47 ECG WITH READING ER PHYS+CARDIAG ordered. EDMS 06:14 Financial registration complete. pm4 06:22 [facility] Payment Agreement was scanned into [employer] and attached to record. pm4 13:35 T-Sheet-- Draft Copy was scanned into [employer] and attached to record. gb 13:35 ECG/EKG was scanned into [employer] and attached to record. gb 13:36 PCR was scanned into [employer] and attached to record. gb 06/21 07:42 PCR was scanned into [employer] and attached to record. gb Administered Medications: 06/20 05:52 Drug: Levalbuterol 1.25 mg [levalbuterol 1.25 mg/0.5 mL solution for nebulization (0.5 bb3 mL)] Route: Nebulizer; 05:52 Drug: Levalbuterol 1.25 mg [levalbuterol 1.25 mg/0.5 mL solution for nebulization (0.5 bb3 mL)] Route: Nebulizer; 05:55 Drug: Dexamethasone 15 mg [dexamethasone 4 mg/mL injection solution] Route: IV; Rate: af2 bolus; Site: left antecubital; 06:13 Drug: Levalbuterol 1.25 mg [levalbuterol 1.25 mg/0.5 mL solution for nebulization (0.5 bb3 mL)] Route: Nebulizer; 06:14 Follow up: lung sounds increased throughout with coarse expiratory wheezes in all bb3 malhotra. Pt states his breathing feels better. Pt has a strong hacking non productive cough Signatures: Dispatcher [employer] EDMS Patricia Boyce, Reg Reg gb Ynes Gerber, Independent Driver Unit ml3 Joe Nunez, DO cs11 Genoveva Boothe,RN RN af2 Raghav Shipley,RN RN nn1 Eze Vigil, Reg Reg pm4 Jose Willis bb3 The chart was reviewed and I authenticate all verbal orders and agree with the evaluation and treatment provided.Attachments: 06:22 [facility] Payment Agreement pm4 13:35 T-Sheet-- Draft Copy gb 13:35 ECG/EKG gb Chart Complete MTDD
--- NOTE | 2016-06-22 20:06 | EDDOCDS ---
Nurse's Notes [facility] Name: Akbar Ulloa Age: 51 yrs Sex: Male : 1965 Arrival Date: 06/20/2016 Time: 05:29 Bed 5 Private MD: Diagnosis: Simple chronic bronchitis;Nicotine dependence, cigarettes;Hallucinogen abuse Presentation: 06/20 05:34 Presenting complaint: EMS states: SOB that began around 0230, patient has hx of chronic nn1 bronchitis. Patient admits to "2 20 pieces of leona" and drinking alcohol. Patient alert and oriented x 3. Patient denies chest pain. Adult Sepsis Screening: The patient does not have new or worsening altered mentation. Patient's respiratory rate is less than 22. Systolic blood pressure is greater than 100. Patient has a qSOFA score of 0- Negative Sepsis Screen. Suicide/Homicide risk assessment- the patient denies having any suicidal and/or homicidal ideations and does not present with any other emotional, behavioral or mental health complaints. Status: Patient is not a donor services coordinator or dependent. Transition of care: patient was not received from another setting of care. 05:34 Acuity: ELSA Level 3 nn1 05:34 Method Of Arrival: Ambulance nn1 Triage Assessment: 05:43 General: Appears in no apparent distress, comfortable, Behavior is appropriate for age, af2 cooperative, pt talking and laughing.. Pain: Denies pain. HIV screening NA for this visit Offered previously. Respiratory: Onset: The symptoms/episode began/occurred just prior to arrival, Airway is patent Respiratory effort is even, unlabored. Respiratory: Reports shortness of breath at rest. Derm: Skin is normal. Historical: - Allergies: No known drug Allergies; - Home Meds: 1. lisinopril 5 mg Oral tab once daily 2. metformin 1,000 mg Oral tr24 1 tab once daily 3. Seroquel 400 mg Oral tab 4. trazodone 300 mg Oral tab 1 tab - PMHx: Diabetes - NIDDM: controlled; Bipolar disorder; Schizophrenia; - PSHx: finger surgery; - Social history: Smoking status: Patient uses tobacco products, heavy tobacco smoker. Patient uses alcohol street drugs, [place], No barriers to communication noted, The patient speaks fluent Thai, Speaks appropriately for age. - Family history: Not pertinent. - : The pt / caregiver states he / she is not on anticoagulants. Home medication list is obtained from the patient. - Exposure Risk Screening:: None identified. Screenin:46 Screening information is obtained from the patient. Fall risk: No risks identified. af2 Assistance ADL's: requires no assistance with activities of daily living. Abuse/DV Screen: The patient / caregiver reports he/she is: not in a situation that causes fear, pain or injury. Nutritional screening: No deficits noted. Advance Directives: Currently, there is no health care proxy. home support is adequate. Assessment: 05:44 General: Appears in no apparent distress, Behavior is cooperative, pt states to this af2 production underwriter "can I go smoke a cigarette?" informed pt of hospital smoking police.. General: admits to using leona this evening.. Neurological: Level of Consciousness is awake, alert, obeys commands, Oriented to person, place, time. Cardiovascular: Heart tones S1 S2 present. Respiratory: Airway is patent Respiratory effort is even, unlabored, Breath sounds with wheezes bilaterally. Derm: Skin is normal. 06:09 General: pt pulled PIV out and ripped monitor off, states "I want to go out and smoke." af2 provider notified. pt states he will stay at this time.. Vital Signs: 05:40 BP 151 / 97; Pulse 118; Resp 22; Temp 96.9(O); Pulse Ox 99% on 2 lpm NC; Weight 145.6 nn1 kg; Height 6 ft. 0 in. (182.88 cm); Pain 0/10; 06:43 BP 148 / 88; Pulse 99; Resp 18 S; Temp 97.0(TE); Pulse Ox 96% on R/A; af2 05:40 Body Mass Index 43.53 (145.60 kg, 182.88 cm) nn1 Vitals: 05:40 Log In Time N/A - ambulance arrival. nn1 ED Course: 05:30 Patient visited by Ynes Gerber Unit Secy. ml3 05:30 Unknown Pcp is Private Physician. ml3 05:30 No Pcp is Private Physician. ml3 05:30 Patient moved to Waiting ml3 05:30 Patient moved to 5 ml3 05:37 Triage Initiated nn1 05:38 Kelly Blas DO is Attending Physician. cs11 05:38 Patient visited by Kelly Blas DO. cs11 05:46 The patient / caregiver is instructed regarding the plan of care and ED course. Patient af2 has correct armband on for positive identification. 05:46 Maintain field IV. Dressing intact. Good blood return noted. Site clean & dry. Gauge & af2 site: #20G to left ac.. 05:47 Patient visited by Genoveva Boothe RN. af2 05:58 EKG done. (by ED staff). Reviewed by Kelly Blas DO. kb5 06:11 Patient visited by Genoveva Boothe RN. af2 06:22 [facility] Payment Agreement was scanned into [employer] and attached to record. pm4 06:43 Discontinued IV lock intact, bleeding controlled, pressure dressing applied, No af2 redness/swelling at site. No procedures done that require assistance. 07:53 EKG-ADULT Returned. EDMS 08:38 Chest, 1 View Returned. EDMS 13:35 T-Sheet-- Draft Copy was scanned into [employer] and attached to record. gb 13:35 ECG/EKG was scanned into [employer] and attached to record. gb 13:36 PCR was scanned into [employer] and attached to record. gb 23:49 Patient name changed from Akbar\\S\\Oniel\\S\\Hoxie\\S\\ to Akbar\\S\\F\\S\\Hoxie. EDMS 06/21 07:42 PCR was scanned into [employer] and attached to record. gb Administered Medications: 06/20 05:52 Drug: Levalbuterol 1.25 mg [levalbuterol 1.25 mg/0.5 mL solution for nebulization (0.5 bb3 mL)] Route: Nebulizer; 05:52 Drug: Levalbuterol 1.25 mg [levalbuterol 1.25 mg/0.5 mL solution for nebulization (0.5 bb3 mL)] Route: Nebulizer; 05:55 Drug: Dexamethasone 15 mg [dexamethasone 4 mg/mL injection solution] Route: IV; Rate: af2 bolus; Site: left antecubital; 06:13 Drug: Levalbuterol 1.25 mg [levalbuterol 1.25 mg/0.5 mL solution for nebulization (0.5 bb3 mL)] Route: Nebulizer; 06:14 Follow up: lung sounds increased throughout with coarse expiratory wheezes in all bb3 malhotra. Pt states his breathing feels better. Pt has a strong hacking non productive cough Intake: RT: 05:51 Oxygen is room air. Respiratory: Respiratory effort is even, unlabored, Respiratory bb3 pattern is regular symmetrical, Breath sounds are diminished Breath sounds with wheezes Reports cough that is. 05:52 Initial Med Neb Given as ordered Patient was instructed and evaluated on procedure bb3 Subsequent Med Neb Given as ordered Patient was reinforced on procedure. 06:11 Respiratory: lung sounds increased throughout with coarse expiratory wheezes in all bb3 malhotra. Pt states his breathing feels better. Pt has a strong hacking non productive cough. 06:13 Subsequent Med Neb Given as ordered. bb3 06:15 Respiratory: at start of third tx, pt put down nebulizer and put on coat to go outside bb3 and "call his brother." Instructed patient to please sit back in bed and finish breathing tx. Pt was compliant and non combative. Pt does not follow instructions well when taking neb tx. Order Results: Radiology Order: Chest, 1 View Test: Chest, 1 View REASON FOR EXAMINATION: Shortness of Breath; Portable chest x-ray: Upright semi-erect view.; ; History: Shortness of breath.; ; Findings: The lungs are symmetrically aerated. Pleural angles are sharp. Heart; size is normal. No infiltrate is seen. Pulmonary vasculature is not increased.; This radiograph is exposed at a somewhat lordotic angle. There is minimal; plate-like atelectasis in the right base.; ; Impression:; ; Minimal plate-like atelectasis right base. Otherwise no acute disease.; ; ; Signed by; Bebeto Garcia MD 06/20/2016 09:50 A; Radiology Order: EKG-ADULT Test: EKG-ADULT REASON FOR EXAMINATION: Shortness of Breath; Stationary ECG Study; [facility] - ED; ; Test Date: 2016-06-20; Pat Name: AKBAR ULLOA Department:; Room: -; Gender: M Insurance Agents Supervisor: ZOE; : 1965 Requested By: KELLY BLAS; Order Number: [id number] Eunice MD: Magui Parnell; Measurements; Intervals [place]; Rate: 117 P: 35; CA: 172 QRS: 2; QRSD: 84 T: 22; QT: 328; QTc: 459; Interpretive Statements; SINUS TACHYCARDIA; NONSPECIFIC T-WAVE ABNORMALITY; ABNORMAL RHYTHM ECG; INCREASED RATE 11/15/15; Electronically Signed On 06-20-2016 7:38:43 EST by Magui Parnell; Outcome: 06:39 Discharge ordered by Provider. cs11 06:43 Discharge Assessment: Patient awake, alert and oriented x 3. No cognitive and/or af2 functional deficits noted. Patient verbalized understanding of disposition instructions. patient administered narcotics - no. The following High Risk Discharge criteria are identified: None. Discharged to home ambulatory. Condition: stable. Discharge instructions given to patient, Instructed on discharge instructions, follow up and referral plans. medication usage, Demonstrated understanding of instructions, medications, Pt was receptive of discharge instructions/ teaching. No special radiology studies were completed. Property :Personal belongings accompany Pt. 06:50 Patient left the ED. af2 Signatures: Dispatcher [employer] EDMS Patricia Boyce, Reg Reg gb Ynes Gerber, Unit Secy Unit ml3 Babatunde Blandon, AGED OR DISABLED CARER AGED OR DISABLED CARER kb5 Jose Willis bb3 Kelly Blas, DO DO cs11 Genoveva Boothe RN RN af2 Raghav Shipley RN RN nn1 Eze Vigil, Reg Reg pm4 Chart Complete MTDD
--- NOTE | 2016-06-22 20:06 | EDDOCDS ---
Physician Documentation [facility] Name: Akabr Ulloa Age: 51 yrs Sex: Male : 1965 Arrival Date: 06/20/2016 Time: 05:29 Bed 5 Private MD: Disposition: 06/20/16 06:39 Discharged to Home/Self Care. Impression: Simple chronic bronchitis, Nicotine dependence, cigarettes, Hallucinogen abuse. - Condition is Stable. - Prescriptions for Prednisone 20 mg Oral Tablet - take 3 tablet by ORAL route once daily for 5 days; 15 tablet. - Medication Reconciliation, Local Pharmacy Hours form. - Follow up: Private Physician; When: Call to arrange an appointment; Reason: Recheck today's complaints. - Problem is chronic. - Symptoms have improved. Historical: - Allergies: No known drug Allergies; - Home Meds: 1. lisinopril 5 mg Oral tab once daily 2. metformin 1,000 mg Oral tr24 1 tab once daily 3. Seroquel 400 mg Oral tab 4. trazodone 300 mg Oral tab 1 tab - PMHx: Diabetes - NIDDM: controlled; Bipolar disorder; Schizophrenia; - PSHx: finger surgery; - Social history: Smoking status: Patient uses tobacco products, heavy tobacco smoker. Patient uses alcohol street drugs, Sig[place], No barriers to communication noted, The patient speaks fluent [place], Speaks appropriately for age. - Family history: Not pertinent. - : The pt / caregiver states he / she is not on anticoagulants. Home medication list is obtained from the patient. - Exposure Risk Screening:: None identified. Vital Signs: 06/20 05:40 BP 151 / 97; Pulse 118; Resp 22; Temp 96.9(O); Pulse Ox 99% on 2 lpm NC; Weight 145.6 nn1 kg / 320.99 lbs; Height 6 ft. 0 in. (182.88 cm); Pain 0/10; 06:43 BP 148 / 88; Pulse 99; Resp 18 S; Temp 97.0(TE); Pulse Ox 96% on R/A; af2 05:40 Body Mass Index 43.53 (145.60 kg, 182.88 cm) nn1 MDM: 05:44 IV Saline Lock ordered. cs11 05:44 Dexamethasone 15 mg IV at bolus once ordered. cs11 05:44 Levalbuterol 1.25 mg Nebulizer every 15 minutes x3 ordered. cs11 05:44 Call Respiratory ordered. cs11 05:44 Chest, 1 View Ordered. EDMS 05:45 Call Respiratory complete. ml3 05:47 ECG WITH READING ER PHYS+CARDIAG ordered. EDMS 06:14 Financial registration complete. pm4 06:22 [facility] Payment Agreement was scanned into [employer] and attached to record. pm4 13:35 T-Sheet-- Draft Copy was scanned into [employer] and attached to record. gb 13:35 ECG/EKG was scanned into [employer] and attached to record. gb 13:36 PCR was scanned into [employer] and attached to record. gb 06/21 07:42 PCR was scanned into [employer] and attached to record. gb Administered Medications: 06/20 05:52 Drug: Levalbuterol 1.25 mg [levalbuterol 1.25 mg/0.5 mL solution for nebulization (0.5 bb3 mL)] Route: Nebulizer; 05:52 Drug: Levalbuterol 1.25 mg [levalbuterol 1.25 mg/0.5 mL solution for nebulization (0.5 bb3 mL)] Route: Nebulizer; 05:55 Drug: Dexamethasone 15 mg [dexamethasone 4 mg/mL injection solution] Route: IV; Rate: af2 bolus; Site: left antecubital; 06:13 Drug: Levalbuterol 1.25 mg [levalbuterol 1.25 mg/0.5 mL solution for nebulization (0.5 bb3 mL)] Route: Nebulizer; 06:14 Follow up: lung sounds increased throughout with coarse expiratory wheezes in all bb3 malhotra. Pt states his breathing feels better. Pt has a strong hacking non productive cough Signatures: Dispatcher [employer] EDMS Patricia Boyce, Reg Reg gb Ynes Gerber, Stakeholder Manager Unit ml3 Joe Nunez, DO cs11 Genoveva Boothe,RN RN af2 Raghav Shipley,RN RN nn1 Eze Vigil, Reg Reg pm4 Jose Willis bb3 The chart was reviewed and I authenticate all verbal orders and agree with the evaluation and treatment provided.Attachments: 06:22 [facility] Payment Agreement pm4 13:35 T-Sheet-- Draft Copy gb 13:35 ECG/EKG gb Chart Complete MTDD
--- NOTE | 2016-06-22 20:06 | EDDOCDS ---
Nurse's Notes [facility] Name: Akbar Ulloa Age: 51 yrs Sex: Male : 1965 Arrival Date: 06/20/2016 Time: 05:29 Bed 5 Private MD: Diagnosis: Simple chronic bronchitis;Nicotine dependence, cigarettes;Hallucinogen abuse Presentation: 06/20 05:34 Presenting complaint: EMS states: SOB that began around 0230, patient has hx of chronic nn1 bronchitis. Patient admits to "2 20 pieces of leona" and drinking alcohol. Patient alert and oriented x 3. Patient denies chest pain. Adult Sepsis Screening: The patient does not have new or worsening altered mentation. Patient's respiratory rate is less than 22. Systolic blood pressure is greater than 100. Patient has a qSOFA score of 0- Negative Sepsis Screen. Suicide/Homicide risk assessment- the patient denies having any suicidal and/or homicidal ideations and does not present with any other emotional, behavioral or mental health complaints. Status: Patient is not a sales representative facility services or dependent. Transition of care: patient was not received from another setting of care. 05:34 Acuity: ELSA Level 3 nn1 05:34 Method Of Arrival: Ambulance nn1 Triage Assessment: 05:43 General: Appears in no apparent distress, comfortable, Behavior is appropriate for age, af2 cooperative, pt talking and laughing.. Pain: Denies pain. HIV screening NA for this visit Offered previously. Respiratory: Onset: The symptoms/episode began/occurred just prior to arrival, Airway is patent Respiratory effort is even, unlabored. Respiratory: Reports shortness of breath at rest. Derm: Skin is normal. Historical: - Allergies: No known drug Allergies; - Home Meds: 1. lisinopril 5 mg Oral tab once daily 2. metformin 1,000 mg Oral tr24 1 tab once daily 3. Seroquel 400 mg Oral tab 4. trazodone 300 mg Oral tab 1 tab - PMHx: Diabetes - NIDDM: controlled; Bipolar disorder; Schizophrenia; - PSHx: finger surgery; - Social history: Smoking status: Patient uses tobacco products, heavy tobacco smoker. Patient uses alcohol street drugs, [place], No barriers to communication noted, The patient speaks fluent Macedonian, Speaks appropriately for age. - Family history: Not pertinent. - : The pt / caregiver states he / she is not on anticoagulants. Home medication list is obtained from the patient. - Exposure Risk Screening:: None identified. Screenin:46 Screening information is obtained from the patient. Fall risk: No risks identified. af2 Assistance ADL's: requires no assistance with activities of daily living. Abuse/DV Screen: The patient / caregiver reports he/she is: not in a situation that causes fear, pain or injury. Nutritional screening: No deficits noted. Advance Directives: Currently, there is no health care proxy. home support is adequate. Assessment: 05:44 General: Appears in no apparent distress, Behavior is cooperative, pt states to this af2 senior copywriter "can I go smoke a cigarette?" informed pt of hospital smoking police.. General: admits to using leona this evening.. Neurological: Level of Consciousness is awake, alert, obeys commands, Oriented to person, place, time. Cardiovascular: Heart tones S1 S2 present. Respiratory: Airway is patent Respiratory effort is even, unlabored, Breath sounds with wheezes bilaterally. Derm: Skin is normal. 06:09 General: pt pulled PIV out and ripped monitor off, states "I want to go out and smoke." af2 provider notified. pt states he will stay at this time.. Vital Signs: 05:40 BP 151 / 97; Pulse 118; Resp 22; Temp 96.9(O); Pulse Ox 99% on 2 lpm NC; Weight 145.6 nn1 kg; Height 6 ft. 0 in. (182.88 cm); Pain 0/10; 06:43 BP 148 / 88; Pulse 99; Resp 18 S; Temp 97.0(TE); Pulse Ox 96% on R/A; af2 05:40 Body Mass Index 43.53 (145.60 kg, 182.88 cm) nn1 Vitals: 05:40 Log In Time N/A - ambulance arrival. nn1 ED Course: 05:30 Patient visited by Ynes Gerber Canvas Worker Apprentice. ml3 05:30 Unknown Pcp is Private Physician. ml3 05:30 No Pcp is Private Physician. ml3 05:30 Patient moved to Waiting ml3 05:30 Patient moved to 5 ml3 05:37 Triage Initiated nn1 05:38 Kelly Blas DO is Attending Physician. cs11 05:38 Patient visited by Kelly Blas DO. cs11 05:46 The patient / caregiver is instructed regarding the plan of care and ED course. Patient af2 has correct armband on for positive identification. 05:46 Maintain field IV. Dressing intact. Good blood return noted. Site clean & dry. Gauge & af2 site: #20G to left ac.. 05:47 Patient visited by Genoveva Boothe RN. af2 05:58 EKG done. (by ED staff). Reviewed by Kelly Blas DO. kb5 06:11 Patient visited by Genoveva Boothe RN. af2 06:22 [facility] Payment Agreement was scanned into [employer] and attached to record. pm4 06:43 Discontinued IV lock intact, bleeding controlled, pressure dressing applied, No af2 redness/swelling at site. No procedures done that require assistance. 07:53 EKG-ADULT Returned. EDMS 08:38 Chest, 1 View Returned. EDMS 13:35 T-Sheet-- Draft Copy was scanned into [employer] and attached to record. gb 13:35 ECG/EKG was scanned into [employer] and attached to record. gb 13:36 PCR was scanned into [employer] and attached to record. gb 23:49 Patient name changed from Akbar\\S\\Oniel\\S\\[place]\\S\\ to Akbar\\S\\F\\S\\[place]. EDMS 06/21 07:42 PCR was scanned into [employer] and attached to record. gb Administered Medications: 06/20 05:52 Drug: Levalbuterol 1.25 mg [levalbuterol 1.25 mg/0.5 mL solution for nebulization (0.5 bb3 mL)] Route: Nebulizer; 05:52 Drug: Levalbuterol 1.25 mg [levalbuterol 1.25 mg/0.5 mL solution for nebulization (0.5 bb3 mL)] Route: Nebulizer; 05:55 Drug: Dexamethasone 15 mg [dexamethasone 4 mg/mL injection solution] Route: IV; Rate: af2 bolus; Site: left antecubital; 06:13 Drug: Levalbuterol 1.25 mg [levalbuterol 1.25 mg/0.5 mL solution for nebulization (0.5 bb3 mL)] Route: Nebulizer; 06:14 Follow up: lung sounds increased throughout with coarse expiratory wheezes in all bb3 malhotra. Pt states his breathing feels better. Pt has a strong hacking non productive cough Intake: RT: 05:51 Oxygen is room air. Respiratory: Respiratory effort is even, unlabored, Respiratory bb3 pattern is regular symmetrical, Breath sounds are diminished Breath sounds with wheezes Reports cough that is. 05:52 Initial Med Neb Given as ordered Patient was instructed and evaluated on procedure bb3 Subsequent Med Neb Given as ordered Patient was reinforced on procedure. 06:11 Respiratory: lung sounds increased throughout with coarse expiratory wheezes in all bb3 malhotra. Pt states his breathing feels better. Pt has a strong hacking non productive cough. 06:13 Subsequent Med Neb Given as ordered. bb3 06:15 Respiratory: at start of third tx, pt put down nebulizer and put on coat to go outside bb3 and "call his brother." Instructed patient to please sit back in bed and finish breathing tx. Pt was compliant and non combative. Pt does not follow instructions well when taking neb tx. Order Results: Radiology Order: Chest, 1 View Test: Chest, 1 View REASON FOR EXAMINATION: Shortness of Breath; Portable chest x-ray: Upright semi-erect view.; ; History: Shortness of breath.; ; Findings: The lungs are symmetrically aerated. Pleural angles are sharp. Heart; size is normal. No infiltrate is seen. Pulmonary vasculature is not increased.; This radiograph is exposed at a somewhat lordotic angle. There is minimal; plate-like atelectasis in the right base.; ; Impression:; ; Minimal plate-like atelectasis right base. 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 cs11 06:43 Discharge Assessment: Patient awake, alert and oriented x 3. No cognitive and/or af2 functional deficits noted. Patient verbalized understanding of disposition instructions. patient administered narcotics - no. The following High Risk Discharge criteria are identified: None. Discharged to home ambulatory. Condition: stable. Discharge instructions given to patient, Instructed on discharge instructions, follow up and referral plans. medication usage, Demonstrated understanding of instructions, medications, Pt was receptive of discharge instructions/ teaching. No special radiology studies were completed. Property :Personal belongings accompany Pt. 06:50 Patient left the ED. af2 Signatures: Dispatcher [employer] EDMS Patricia Boyce, Reg Reg gb Ynes Gerber, Canvas Worker Apprentice Unit ml3 Babatunde Blandon, INSTALLER TECHNICIAN INSTALLER TECHNICIAN kb5 Jose Willis bb3 Kelly Blas, DO DO cs11 Genoveva Boothe RN RN af2 Raghav Shipley RN RN nn1 Eze Vigil, Reg Reg pm4 Chart Complete MTDD
--- NOTE | 2016-06-22 20:06 | EDDOCDS ---
Physician Documentation [facility] Name: Akbar Ulloa Age: 51 yrs Sex: Male : 1965 Arrival Date: 06/20/2016 Time: 05:29 Bed 5 Private MD: Disposition: 06/20/16 06:39 Discharged to Home/Self Care. Impression: Simple chronic bronchitis, Nicotine dependence, cigarettes, Hallucinogen abuse. - Condition is Stable. - Prescriptions for Prednisone 20 mg Oral Tablet - take 3 tablet by ORAL route once daily for 5 days; 15 tablet. - Medication Reconciliation, Local Pharmacy Hours form. - Follow up: Private Physician; When: Call to arrange an appointment; Reason: Recheck today's complaints. - Problem is chronic. - Symptoms have improved. Historical: - Allergies: No known drug Allergies; - Home Meds: 1. lisinopril 5 mg Oral tab once daily 2. metformin 1,000 mg Oral tr24 1 tab once daily 3. Seroquel 400 mg Oral tab 4. trazodone 300 mg Oral tab 1 tab - PMHx: Diabetes - NIDDM: controlled; Bipolar disorder; Schizophrenia; - PSHx: finger surgery; - Social history: Smoking status: Patient uses tobacco products, heavy tobacco smoker. Patient uses alcohol street drugs, [place], No barriers to communication noted, The patient speaks fluent Belizean, Speaks appropriately for age. - Family history: Not pertinent. - : The pt / caregiver states he / she is not on anticoagulants. Home medication list is obtained from the patient. - Exposure Risk Screening:: None identified. Vital Signs: 06/20 05:40 BP 151 / 97; Pulse 118; Resp 22; Temp 96.9(O); Pulse Ox 99% on 2 lpm NC; Weight 145.6 nn1 kg / 320.99 lbs; Height 6 ft. 0 in. (182.88 cm); Pain 0/10; 06:43 BP 148 / 88; Pulse 99; Resp 18 S; Temp 97.0(TE); Pulse Ox 96% on R/A; af2 05:40 Body Mass Index 43.53 (145.60 kg, 182.88 cm) nn1 MDM: 05:44 IV Saline Lock ordered. cs11 05:44 Dexamethasone 15 mg IV at bolus once ordered. cs11 05:44 Levalbuterol 1.25 mg Nebulizer every 15 minutes x3 ordered. cs11 05:44 Call Respiratory ordered. cs11 05:44 Chest, 1 View Ordered. EDMS 05:45 Call Respiratory complete. ml3 05:47 ECG WITH READING ER PHYS+CARDIAG ordered. EDMS 06:14 Financial registration complete. pm4 06:22 [facility] Payment Agreement was scanned into [email or web address] and attached to record. pm4 13:35 T-Sheet-- Draft Copy was scanned into [employer] and attached to record. gb 13:35 ECG/EKG was scanned into [employer] and attached to record. gb 13:36 PCR was scanned into [employer] and attached to record. gb 06/21 07:42 PCR was scanned into [employer] and attached to record. gb Administered Medications: 06/20 05:52 Drug: Levalbuterol 1.25 mg [levalbuterol 1.25 mg/0.5 mL solution for nebulization (0.5 bb3 mL)] Route: Nebulizer; 05:52 Drug: Levalbuterol 1.25 mg [levalbuterol 1.25 mg/0.5 mL solution for nebulization (0.5 bb3 mL)] Route: Nebulizer; 05:55 Drug: Dexamethasone 15 mg [dexamethasone 4 mg/mL injection solution] Route: IV; Rate: af2 bolus; Site: left antecubital; 06:13 Drug: Levalbuterol 1.25 mg [levalbuterol 1.25 mg/0.5 mL solution for nebulization (0.5 bb3 mL)] Route: Nebulizer; 06:14 Follow up: lung sounds increased throughout with coarse expiratory wheezes in all bb3 malhotra. Pt states his breathing feels better. Pt has a strong hacking non productive cough Signatures: Dispatcher [employer] EDMS Patricia Boyce, Reg Reg gb Ynes Gerber, Technology Resource Teacher Unit ml3 Joe Nunez, DO cs11 Genoveva Boothe,RN RN af2 Raghav Shipley,RN RN nn1 Eze Vigil, Reg Reg pm4 Jose Willis bb3 The chart was reviewed and I authenticate all verbal orders and agree with the evaluation and treatment provided.Attachments: 06:22 [facility] Payment Agreement pm4 13:35 T-Sheet-- Draft Copy gb 13:35 ECG/EKG gb Chart Complete MTDD
== END 2016-06-20 06:50 | disposition home or self-care (01) ==
LOC: M ED 05:29
DX: J42 Unspecified chronic bronchitis (principal); Z72.0 Tobacco use; F16.10 Hallucinogen abuse, uncomplicated; R94.31 Abnormal electrocardiogram [ECG] [EKG]; E11.9 Type 2 diabetes mellitus without complications; F31.9 Bipolar disorder, unspecified; F20.9 Schizophrenia, unspecified; Z79.899 Other long term (current) drug therapy
CPT/HCPCS: 71010; 93005; 94640; 96374; 99284; J1100

== ENCOUNTER 2016-06-20 12:33 | Emergency (ER) | payer MEDICAID, OTHER ==
--- NOTE | 2016-06-20 13:58 | EDDOCDS ---
Nurse's Notes [facility] Name: Akbar Ulloa Age: 51 yrs Sex: Male : 1965 Arrival Date: 06/20/2016 Time: 12:33 Bed 21 Private MD: Jayden Raines Diagnosis: Chest pain, unspecified Presentation: 06/20 12:55 Presenting complaint: Patient states: "I got chest pain. It started 45 minutes ago when mb9 I was sitting.". pt reports the pain gets worse when I breath. pt was here at this Er this am and diagnosed with bronchitis. Aspirin was taken CLAY MOLDER. Suicide/Homicide risk assessment- the patient denies having any suicidal and/or homicidal ideations and does not present with any other emotional, behavioral or mental health complaints. Status: Patient is not a service advisor or dependent. Transition of care: patient was not received from another setting of care. 12:55 Acuity: ELSA Level 3 mb9 12:55 Method Of Arrival: Ambulance mb9 13:07 Adult Sepsis Screening: The patient does not have new or worsening altered mentation. mb9 Patient's respiratory rate is less than 22. Systolic blood pressure is greater than 100. Patient has a qSOFA score of 0- Negative Sepsis Screen. Care prior to arrival: Medications administered prior to arrival: ASA. Triage Assessment: 13:05 General: Appears well nourished, well groomed, Behavior is appropriate for age, mb9 cooperative. Pain: Location: chest. HIV screening NA for this visit Offered previously. The patient is triaged at the bedside. See Assessment in Nurses Notes section of ED record. Neurological: Level of Consciousness is awake, alert, Oriented to person, place, time. Cardiovascular: Heart tones S1 S2 present Pulses are all present. Rhythm is sinus tachycardia No ectopy. Chest pain is described as Pain is 8 out of 10 on a pain scale. quality is burning, is located in substernal area radiates Does not radiate. episodes are continuous began 1 hour prior to arrival is aggravated by breathing, palpation of site. Respiratory: Airway is patent Respiratory effort is even, unlabored, Breath sounds are clear bilaterally. Historical: - Allergies: no known allergies; - Home Meds: 1. lisinopril 5 mg Oral tab once daily 2. metformin 1,000 mg Oral tr24 1 tab once daily 3. Seroquel 400 mg Oral tab 4. trazodone 300 mg Oral tab 1 tab 5. prednisone 20 mg Oral tab 1 tab 3 times per day pt has not picked up perscription yet. - PMHx: Bipolar disorder; Diabetes - NIDDM: controlled; Schizophrenia; - PSHx: finger surgery; - Social history: Smoking status: Patient uses tobacco products, heavy tobacco smoker. No barriers to communication noted, The patient speaks fluent Armenian, Patient uses street drugs, "I just used leona last night". . - : The pt / caregiver states he / she is not on anticoagulants. Home medication list is obtained from the patient. - Exposure Risk Screening:: None identified. Vital Signs: 13:06 BP 154 / 80 LA Supine (auto/lg); Pulse 124; Resp 20; Temp 100.6(TE); Pulse Ox 94% on jrd R/A; Weight 146.96 kg (R); Height 6 ft. 2 in. (187.96 cm) (R); Pain 8/10; 13:06 Body Mass Index 41.60 (146.96 kg, 187.96 cm) jrd Vitals: 13:05 Log In Time N/A - ambulance arrival. mb9 ED Course: 12:34 Patient visited by Jackie Andres, Environmental Professional. lbd 12:34 Patient moved to Waiting lbd 12:35 Jayden Raines is Private Physician. lbd 12:35 Patient moved to 21 lbd 12:56 Triage Initiated mb9 13:07 Patient visited by Rusty Humphries PCA. jrd 13:07 Pt greeted and oriented to ED. Patient advised of names of staff involved in care, jrd location of call gallo, wait times and NPO status. air sampling and monitoring on. Pulse ox on. NIBP on. 13:13 Remigio Gutierrez FNP is PHCP. ke 13:13 Patient visited by Remigio Gutierrez FNP. ke 13:13 Patient visited by Remigio Gutierrez FNP. ke 13:50 Jayden Raines is Referral Physician. ke Administered Medications: 13:29 CANCELLED (Other Intervention Used; pt had 324mg aspirin by ems): Aspirin Chewable mb9 Tablet 324 mg PO once Order Results: There are currently no results for this order. Outcome: 13:51 Patient left against medical advice. ke 13:56 The patient is leaving AMA: AMA form signed, Notification of AMA status is made to the mb9 charge nurse, the forensic social worker, the ED attending physician. 13:57 Patient left the ED. mb9 Signatures: Jackie Anders, Environmental Professional Unit lbd Remigio Gutierrez, GOLD ASSAYER GOLD ASSAYER Rusty Bell, FOOD SERVICES DIRECTOR FOOD SERVICES DIRECTOR jrd Juan Antonio No,RN RN mb9 Corrections: (The following items were deleted from the chart) 12:56 12:55 Presenting complaint: Patient states: "I got chest pain. It started 45 minutes mb9 ago when I was sitting.". pt reports the pain gets worse when I breath. mb9 MTDD
--- NOTE | 2016-06-20 13:58 | EDDOCDS ---
Physician Documentation [facility] Name: Akbar Ulloa Age: 51 yrs Sex: Male : 1965 Arrival Date: 06/20/2016 Time: 12:33 Bed 21 Private MD: Jayden Raines Disposition: 06/20/16 13:51 Patient has left against medical advice. Impression: Chest pain, unspecified. - Patients states they are going to Home/Self Care. - Condition is Unknown. - Discharge Instructions: Nonspecific Chest Pain. - Prescriptions for Aspirin 81 mg - take 1 tablet by ORAL route once daily; 90 tablet. Medication Reconciliation, Local Pharmacy Hours form. Follow up: Jayden Raines; When: As soon as possible; Reason: Recheck today's complaints, Continuance of care. - Problem is an ongoing problem. - Symptoms are unchanged. Historical: - Allergies: no known allergies; - Home Meds: 1. lisinopril 5 mg Oral tab once daily 2. metformin 1,000 mg Oral tr24 1 tab once daily 3. Seroquel 400 mg Oral tab 4. trazodone 300 mg Oral tab 1 tab 5. prednisone 20 mg Oral tab 1 tab 3 times per day pt has not picked up perscription yet. - PMHx: Bipolar disorder; Diabetes - NIDDM: controlled; Schizophrenia; - PSHx: finger surgery; - Social history: Smoking status: Patient uses tobacco products, heavy tobacco smoker. No barriers to communication noted, The patient speaks fluent Japanese, Patient uses street drugs, "I just used leona last night". . - : The pt / caregiver states he / she is not on anticoagulants. Home medication list is obtained from the patient. - Exposure Risk Screening:: None identified. Vital Signs: 06/20 13:06 BP 154 / 80 LA Supine (auto/lg); Pulse 124; Resp 20; Temp 100.6(TE); Pulse Ox 94% on jrd R/A; Weight 146.96 kg / 323.99 lbs (R); Height 6 ft. 2 in. (187.96 cm) (R); Pain 8/10; 13:06 Body Mass Index 41.60 (146.96 kg, 187.96 cm) jrd MDM: 12:51 ECG WITH READING ER PHYS+CARDIAG ordered. EDMS 13:25 NS 0.9% 1000 ml IV at 100 mL/hr continuous ordered. ke 13:25 Relay Mechanic/Pulse Ox/q 30 min VS ordered. ke 13:25 IV Saline Lock ordered. ke 13:25 Rhythm Strip to chart ordered. ke 13:25 Undress patient appropriately for examination ordered. ke 13:27 Basic Metabolic Profile Ordered. EDMS 13:27 CBC with Diff Ordered. EDMS 13:27 Cardiac Injury Profile Ordered. EDMS 13:27 Prothrombin Time Profile\\E\\INR Ordered. EDMS 13:27 Troponin Ordered. EDMS 13:44 Financial registration complete. lg Administered Medications: 13:29 CANCELLED (Other Intervention Used; pt had 324mg aspirin by ems): Aspirin Chewable mb9 Tablet 324 mg PO once Signatures: Dispatcher MedHost EDGuy Mchugh, Bebeto Tate lg Remigio Gutierrez, COMPUTER SALESPERSON RETAIL COMPUTER SALESPERSON RETAIL Juan Antonio Fong,RN RN mb9 The chart was reviewed and I authenticate all verbal orders and agree with the evaluation and treatment provided.Corrections: (The following items were deleted from the chart) 13:29 13:25 Aspirin Chewable Tablet 324 mg PO once ordered. brenda mb9 MTDD
--- NOTE | 2016-06-20 19:33 | ECGEPIP ---
Stationary ECG Study [facility] - ED Test Date: 2016-06-20 Pat Name: BRIGID FLORES Department: Room: - Gender: M Cruise Coordinator: aleta : 1965 Requested By: Magui Parnell Order Number: [id number] Reading MD: Magui Parnell Measurements Intervals [place] Rate: 119 P: 52 SD: 172 QRS: -1 QRSD: 77 T: 11 QT: 333 QTc: 469 Interpretive Statements SINUS TACHYCARDIA NONSPECIFIC T-WAVE ABNORMALITY ABNORMAL RHYTHM ECG SIMILAR 06/20/16 5:54 Electronically Signed On 06-20-2016 19:32:56 EST by Magui Parnell
--- NOTE | 2016-06-22 14:58 | EDDOCDS ---
Nurse's Notes [facility] Name: Brigid Ulloa Age: 51 yrs Sex: Male : 1965 Arrival Date: 06/20/2016 Time: 12:33 Bed 21 Private MD: Jayden Raines Diagnosis: Chest pain, unspecified Presentation: 06/20 12:55 Presenting complaint: Patient states: "I got chest pain. It started 45 minutes ago when mb9 I was sitting.". pt reports the pain gets worse when I breath. pt was here at this Er this am and diagnosed with bronchitis. Aspirin was taken EVISCERATOR. Suicide/Homicide risk assessment- the patient denies having any suicidal and/or homicidal ideations and does not present with any other emotional, behavioral or mental health complaints. 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 Transition of care: patient was not received from another setting of care. 12:55 Acuity: ELSA Level 3 mb9 12:55 Method Of Arrival: Ambulance mb9 13:07 Adult Sepsis Screening: The patient does not have new or worsening altered mentation. mb9 Patient's respiratory rate is less than 22. Systolic blood pressure is greater than 100. Patient has a qSOFA score of 0- Negative Sepsis Screen. Care prior to arrival: Medications administered prior to arrival: ASA. Triage Assessment: 13:05 General: Appears well nourished, well groomed, Behavior is appropriate for age, mb9 cooperative. Pain: Location: chest. HIV screening NA for this visit Offered previously. The patient is triaged at the bedside. See Assessment in Nurses Notes section of ED record. Neurological: Level of Consciousness is awake, alert, Oriented to person, place, time. Cardiovascular: Heart tones S1 S2 present Pulses are all present. Rhythm is sinus tachycardia No ectopy. Chest pain is described as Pain is 8 out of 10 on a pain scale. quality is burning, is located in substernal area radiates Does not radiate. episodes are continuous began 1 hour prior to arrival is aggravated by breathing, palpation of site. Respiratory: Airway is patent Respiratory effort is even, unlabored, Breath sounds are clear bilaterally. Historical: - Allergies: no known allergies; - Home Meds: 1. lisinopril 5 mg Oral tab once daily 2. metformin 1,000 mg Oral tr24 1 tab once daily 3. Seroquel 400 mg Oral tab 4. trazodone 300 mg Oral tab 1 tab 5. prednisone 20 mg Oral tab 1 tab 3 times per day pt has not picked up perscription yet. - PMHx: Bipolar disorder; Diabetes - NIDDM: controlled; Schizophrenia; - PSHx: finger surgery; - Social history: Smoking status: Patient uses tobacco products, heavy tobacco smoker. No barriers to communication noted, The patient speaks fluent Uzbek, Patient uses street drugs, "I just used leona last night". . - : The pt / caregiver states he / she is not on anticoagulants. Home medication list is obtained from the patient. - Exposure Risk Screening:: None identified. Vital Signs: 13:06 BP 154 / 80 LA Supine (auto/lg); Pulse 124; Resp 20; Temp 100.6(TE); Pulse Ox 94% on jrd R/A; Weight 146.96 kg (R); Height 6 ft. 2 in. (187.96 cm) (R); Pain 8/10; 13:06 Body Mass Index 41.60 (146.96 kg, 187.96 cm) jrd Vitals: 13:05 Log In Time N/A - ambulance arrival. mb9 ED Course: 12:34 Patient visited by Jackie Anders, Roofing Subcontractor. lbd 12:34 Patient moved to Waiting lbd 12:35 Jayden Raines is Private Physician. lbd 12:35 Patient moved to 21 lbd 12:56 Triage Initiated mb9 13:07 Patient visited by Rusty Humphries PCA. jrd 13:07 Pt greeted and oriented to ED. Patient advised of names of staff involved in care, jrd location of call gallo, wait times and NPO status. service desk specialist on. Pulse ox on. NIBP on. 13:13 [facility] ke 13:13 Patient visited by Remigio Gutierrez FNP. ke 13:13 Patient visited by Remigio Gutierrez FNP. ke 13:50 Jayden Raines is Referral Physician. ke 14:00 Patient name changed from Brigid\\S\\[place]\\S\\[place]\\S\\ to Brigid\\S\\F\\S\\[place]. EDMS 14:01 PENDING SALE TO [facility] Payment Agreement was scanned into [employer] and attached to record. lg 19:43 EKG-ADULT Returned. EDMS 06/21 08:04 Refusal of Services was scanned into [employer] and attached to record. gb 08:04 ECG/EKG was scanned into [employer] and attached to record. gb 08:04 Rhythm Strip was scanned into [employer] and attached to record. gb 08:05 PCR was scanned into [employer] and attached to record. gb 09:23 T-Sheet-- Draft Copy was scanned into [employer] and attached to record. [facility] Administered Medications: 06/20 13:29 CANCELLED (Other Intervention Used; pt had 324mg aspirin by ems): Aspirin Chewable mb9 Tablet 324 mg PO once Attachments: 06/21 08:04 Refusal of Services gb 08:04 Rhythm Strip gb Order Results: Radiology Order: EKG-ADULT Test: EKG-ADULT REASON FOR EXAMINATION: Chest Pain; Stationary ECG Study; [facility] - ED; ; Test Date: 2016-06-20; Pat Name: BRIGID ULLOA Department:; Room: -; Gender: Television News Video Editor: aleta; : 1965 Requested By: Magui Parnell; Order Number: [id number] Reading MD: Magui Parnell; Measurements; Intervals [place]; Rate: 119 P: 52; CT: 172 QRS: -1; QRSD: 77 T: 11; QT: 333; QTc: 469; Interpretive Statements; SINUS TACHYCARDIA; NONSPECIFIC T-WAVE ABNORMALITY; ABNORMAL RHYTHM ECG; SIMILAR 06/20/16 5:54; Electronically Signed On 06-20-2016 19:32:56 EST by Magui Parnell; Outcome: 06/20 13:51 Patient left against medical advice. brenda 13:56 The patient is leaving AMA: AMA form signed, Notification of AMA status is made to the thomas charge nurse, the social secretary, the ED attending physician. 13:57 Patient left the ED. thomas Signatures: Dispatcher [employer] EDMS Jackie Anders, Roofing Subcontractor Unit lbd Patricia Boyce, Reg Reg gb Guy Candelario, Reg Reg lg Remigio Gutierrez, CRUDE OIL TREATER CRUDE OIL TREATER Rusty Bell, SAFETY ANALYST SAFETY ANALYST Juan Antonio Mittal RN RN Magui Rose Corrections: (The following items were deleted from the chart) 12:56 12:55 Presenting complaint: Patient states: "I got chest pain. It started 45 minutes mb9 ago when I was sitting.". pt reports the pain gets worse when I breath. mb9 Chart Complete MTDD
--- NOTE | 2016-06-22 14:58 | EDDOCDS ---
Physician Documentation [facility] Name: Akbar Ulloa Age: 51 yrs Sex: Male : 1965 Arrival Date: 06/20/2016 Time: 12:33 Bed 21 Private MD: Jayden Raines Disposition: 06/20/16 13:51 Patient has left against medical advice. Impression: Chest pain, unspecified. - Patients states they are going to Home/Self Care. - Condition is Unknown. - Discharge Instructions: Nonspecific Chest Pain. - Prescriptions for Aspirin 81 mg - take 1 tablet by ORAL route once daily; 90 tablet. Medication Reconciliation, Local Pharmacy Hours form. Follow up: Jayden Raines; When: As soon as possible; Reason: Recheck today's complaints, Continuance of care. - Problem is an ongoing problem. - Symptoms are unchanged. Historical: - Allergies: no known allergies; - Home Meds: 1. lisinopril 5 mg Oral tab once daily 2. metformin 1,000 mg Oral tr24 1 tab once daily 3. Seroquel 400 mg Oral tab 4. trazodone 300 mg Oral tab 1 tab 5. prednisone 20 mg Oral tab 1 tab 3 times per day pt has not picked up perscription yet. - PMHx: Bipolar disorder; Diabetes - NIDDM: controlled; Schizophrenia; - PSHx: finger surgery; - Social history: Smoking status: Patient uses tobacco products, heavy tobacco smoker. No barriers to communication noted, The patient speaks fluent Surinamese, Patient uses street drugs, "I just used leona last night". . - : The pt / caregiver states he / she is not on anticoagulants. Home medication list is obtained from the patient. - Exposure Risk Screening:: None identified. Vital Signs: 06/20 13:06 BP 154 / 80 LA Supine (auto/lg); Pulse 124; Resp 20; Temp 100.6(TE); Pulse Ox 94% on jrd R/A; Weight 146.96 kg / 323.99 lbs (R); Height 6 ft. 2 in. (187.96 cm) (R); Pain 8/10; 13:06 Body Mass Index 41.60 (146.96 kg, 187.96 cm) jrd MDM: 12:51 ECG WITH READING ER PHYS+CARDIAG ordered. EDMS 13:25 NS 0.9% 1000 ml IV at 100 mL/hr continuous ordered. ke 13:25 Cyber Ops Planner/Pulse Ox/q 30 min VS ordered. ke 13:25 IV Saline Lock ordered. ke 13:25 Rhythm Strip to chart ordered. ke 13:25 Undress patient appropriately for examination ordered. ke 13:27 Basic Metabolic Profile Ordered. EDMS 13:27 CBC with Diff Ordered. EDMS 13:27 Cardiac Injury Profile Ordered. EDMS 13:27 Prothrombin Time Profile\\E\\INR Ordered. EDMS 13:27 Troponin Ordered. EDMS 13:44 Financial registration complete. lg 14:01 [facility] Payment Agreement was scanned into [employer] and attached to record. lg 06/21 08:04 Refusal of Services was scanned into [employer] and attached to record. gb 08:04 ECG/EKG was scanned into [employer] and attached to record. gb 08:04 Rhythm Strip was scanned into [employer] and attached to record. gb 08:05 PCR was scanned into [employer] and attached to record. gb 09:23 T-Sheet-- Draft Copy was scanned into [employer] and attached to record. [facility] Administered Medications: 06/20 13:29 CANCELLED (Other Intervention Used; pt had 324mg aspirin by ems): Aspirin Chewable mb9 Tablet 324 mg PO once Signatures: Dispatcher [employer] EDMS Patricia Boyce, Reg Reg gb Guy Candelario, Reg Reg lg Remigio Gutierrez, ROUGH PATCHER ROUGH PATCHER Juan Antonio Fong,RN RN mb9 Magui Payan The chart was reviewed and I authenticate all verbal orders and agree with the evaluation and treatment provided.Corrections: (The following items were deleted from the chart) 13:25 Aspirin Chewable Tablet 324 mg PO once ordered. brenda mb9 Attachments: 14:01 [facility] Payment Agreement lg 08:04 ECG/EKG gb 09:23 T-Sheet-- Draft Copy [facility] Chart Complete MTDD
--- NOTE | 2016-06-22 14:58 | EDDOCDS ---
Physician Documentation [facility] Name: Akbar Ulloa Age: 51 yrs Sex: Male : 1965 Arrival Date: 06/20/2016 Time: 12:33 Bed 21 Private MD: Jayden Raines Disposition: 06/20/16 13:51 Patient has left against medical advice. Impression: Chest pain, unspecified. - Patients states they are going to Home/Self Care. - Condition is Unknown. - Discharge Instructions: Nonspecific Chest Pain. - Prescriptions for Aspirin 81 mg - take 1 tablet by ORAL route once daily; 90 tablet. Medication Reconciliation, Local Pharmacy Hours form. Follow up: Jayden Raines; When: As soon as possible; Reason: Recheck today's complaints, Continuance of care. - Problem is an ongoing problem. - Symptoms are unchanged. Historical: - Allergies: no known allergies; - Home Meds: 1. lisinopril 5 mg Oral tab once daily 2. metformin 1,000 mg Oral tr24 1 tab once daily 3. Seroquel 400 mg Oral tab 4. trazodone 300 mg Oral tab 1 tab 5. prednisone 20 mg Oral tab 1 tab 3 times per day pt has not picked up perscription yet. - PMHx: Bipolar disorder; Diabetes - NIDDM: controlled; Schizophrenia; - PSHx: finger surgery; - Social history: Smoking status: Patient uses tobacco products, heavy tobacco smoker. No barriers to communication noted, The patient speaks fluent Mauritanian, Patient uses street drugs, "I just used leona last night". . - : The pt / caregiver states he / she is not on anticoagulants. Home medication list is obtained from the patient. - Exposure Risk Screening:: None identified. Vital Signs: 06/20 13:06 BP 154 / 80 LA Supine (auto/lg); Pulse 124; Resp 20; Temp 100.6(TE); Pulse Ox 94% on jrd R/A; Weight 146.96 kg / 323.99 lbs (R); Height 6 ft. 2 in. (187.96 cm) (R); Pain 8/10; 13:06 Body Mass Index 41.60 (146.96 kg, 187.96 cm) jrd MDM: 12:51 ECG WITH READING ER PHYS+CARDIAG ordered. EDMS 13:25 NS 0.9% 1000 ml IV at 100 mL/hr continuous ordered. ke 13:25 Tnt Line Supervisor/Pulse Ox/q 30 min VS ordered. ke 13:25 IV Saline Lock ordered. ke 13:25 Rhythm Strip to chart ordered. ke 13:25 Undress patient appropriately for examination ordered. ke 13:27 Basic Metabolic Profile Ordered. EDMS 13:27 CBC with Diff Ordered. EDMS 13:27 Cardiac Injury Profile Ordered. EDMS 13:27 Prothrombin Time Profile\\E\\INR Ordered. EDMS 13:27 Troponin Ordered. EDMS 13:44 Financial registration complete. lg 14:01 [facility] Payment Agreement was scanned into [employer] and attached to record. lg 06/21 08:04 Refusal of Services was scanned into [employer] and attached to record. gb 08:04 ECG/EKG was scanned into [employer] and attached to record. gb 08:04 Rhythm Strip was scanned into [employer] and attached to record. gb 08:05 PCR was scanned into [employer] and attached to record. gb 09:23 T-Sheet-- Draft Copy was scanned into [employer] and attached to record. [facility] Administered Medications: 06/20 13:29 CANCELLED (Other Intervention Used; pt had 324mg aspirin by ems): Aspirin Chewable mb9 Tablet 324 mg PO once Signatures: Dispatcher [employer] EDMS Patricia Boyce, Reg Reg gb Guy Candelario, Reg Reg lg Remigio Gutierrez, DISTRICT COURT JUDGE DISTRICT COURT JUDGE Juan Antonio Fong,RN RN mb9 Magui Payan The chart was reviewed and I authenticate all verbal orders and agree with the evaluation and treatment provided.Corrections: (The following items were deleted from the chart) 13:25 Aspirin Chewable Tablet 324 mg PO once ordered. brenda mb9 Attachments: 14:01 [facility] Payment Agreement lg 08:04 ECG/EKG gb 09:23 T-Sheet-- Draft Copy [facility] Chart Complete MTDD
== END 2016-06-20 13:40 | disposition left against medical advice (07) ==
LOC: M ED 12:33
DX: R07.9 Chest pain, unspecified (principal); R94.31 Abnormal electrocardiogram [ECG] [EKG]; F31.9 Bipolar disorder, unspecified; E11.9 Type 2 diabetes mellitus without complications; F20.9 Schizophrenia, unspecified; Z72.0 Tobacco use; Z79.899 Other long term (current) drug therapy

== ENCOUNTER 2016-06-21 10:56 | Emergency (ER) | payer OTHER ==
[2016-06-21] MEDS ORDERED: ASPIRIN 81 MG CHEW TABLET As Ordered ONE ×2 (11:30→11:33)
[2016-06-21 11:37] LABS: BASO % 0.2 % (0.0-1.0); EOS # 0.1 K/mm3 (0.0-0.50); EOS % 0.6 % (0.0-3.0); LARGE UNSTAINED CELL # 0.2 K/mm3 (0.0-0.4); LARGE UNSTAINED CELL % 2.1 % (0.0-4.0); LYMPH # 2.5 K/mm3 (1.5-4.5); LYMPH % 25.5 % (24.0-44.0); MEAN CORPUSCULAR HEMOGLOBIN 28.8 pg (27.0-33.0); MEAN CORPUSCULAR HGB CONC 34.5 g/dl (32.0-36.5); MEAN CORPUSCULAR VOLUME 83.4 fl (80.0-96.0); MONO # 0.5 K/mm3 (0.0-0.8); MONO % 5.4 % (0.0-5.0); NEUTROPHILS # 6.4 K/mm3 (1.8-7.7); NEUTROPHILS % 66.1 % (36.0-66.0); PLATELET COUNT, AUTOMATED 206 k/mm3 (150-450); RED CELL DISTRIBUTION WIDTH 12.9 % (11.5-14.5); WHITE BLOOD COUNT 9.6 K/mm3 (4.0-10.0)
[2016-06-21 11:47] LABS: INR 1.02
[2016-06-21] MEDS ORDERED: methylPREDNISolone INJ 125 MG/2 ML VIAL (J2930) As Ordered ONE (12:02)
[2016-06-21 12:03] LABS: ANION GAP 10 MEQ/L (8-16); BLOOD UREA NITROGEN 15 MG/DL (7-18); CALCIUM LEVEL 8.8 MG/DL (8.5-10.1); CARBON DIOXIDE LEVEL 26 MEQ/L (21-32); CHLORIDE LEVEL 100 MEQ/L (98-107); CREATININE FOR GFR 1.46 MG/DL (0.70-1.30); GLOMERULAR FILTRATION RATE > 60.0 (>56); GLUCOSE, FASTING 248 MG/DL (70-105); POTASSIUM SERUM 4.1 MEQ/L (3.5-5.1); SODIUM LEVEL 136 MEQ/L (136-145)
[2016-06-21] MEDS ORDERED: IPRATROPIUM 0.5MG/ALBUTEROL 2.5MG INH SOL UD 3ML (DUONEB)(J7620) As Ordered ONE (12:07)
[2016-06-21 12:15] LABS: AMPHETAMINES LEVEL URINE NEGATIVE (NEGATIVE); BENZODIAZEPINES URINE NEGATIVE (NEGATIVE); COCAINE METABOLITE URINE NEGATIVE (NEGATIVE); CONTROL LINE INT CTR LINE PRESENT; METHADONE URINE NEGATIVE (NEGATIVE); OPIATES URINE NEGATIVE (NEGATIVE); TRICYCLIC ANTIDEPRESS URINE NEGATIVE (NEGATIVE)
--- NOTE | 2016-06-21 13:59 | EDDOCDS ---
Physician Documentation [facility] Name: Akbar Ulloa Age: 51 yrs Sex: Male : 1965 Arrival Date: 06/21/2016 Time: 10:56 Bed TR7 Private MD: Disposition: 06/21/16 13:04 Patient has left against medical advice. Impression: Chest pain, unspecified. - Patients states they are going to Home/Self Care. - Condition is Good. Medication Reconciliation, Local Pharmacy Hours form. Follow up: Private Physician; When: Call to arrange an appointment; Reason: Continuance of care. - Problem is an ongoing problem. - Symptoms are unchanged. Historical: - Allergies: no known allergies; - Home Meds: 1. metformin 1,000 mg Oral tr24 1 tab twice a day 2. lisinopril 5 mg Oral tab once daily 3. prednisone 20 mg Oral tab 1 tab 3 times per day pt has not picked up perscription yet. 4. Seroquel 400 mg Oral tab 5. trazodone 300 mg Oral tab 1 tab - PMHx: Bipolar disorder; Diabetes - NIDDM: controlled; Schizophrenia; - PSHx: finger surgery; - Social history: Smoking status: Patient uses tobacco products, light tobacco smoker. No barriers to communication noted, The patient speaks fluent Sinhala. - : The pt / caregiver states he / she is not on anticoagulants. Home medication list is obtained from the patient. - Exposure Risk Screening:: None identified. Vital Signs: 06/21 11:15 BP 143 / 97 (auto/); kc3 11:17 BP 147 / 97 LA Sitting (auto/lg); Pulse 98; Resp 18; Temp 97.5; Pulse Ox 96% on R/A; jrd Weight 145.6 kg / 320.99 lbs; Height 6 ft. 2 in. (187.96 cm); Pain 8/10; 11:17 Pulse 98 MON; Pulse Ox 95% ; kc3 11:32 BP 171 / 94 (auto/); kc3 11:33 Pulse 102 MON; Pulse Ox 96% ; kc3 12:02 BP 152 / 80 (auto/); kc3 12:03 Pulse 98 MON; Pulse Ox 97% ; kc3 11:17 Body Mass Index 41.21 (145.60 kg, 187.96 cm) jrd MDM: 10:58 Aspirin Chewable Tablet 324 mg PO once ordered. fg 10:58 Mortgage Closing Clerk/Pulse Ox/q 30 min VS ordered. fg 10:58 IV Saline Lock ordered. fg 10:58 Rhythm Strip to chart ordered. fg 10:58 Undress patient appropriately for examination ordered. fg 10:59 B-Type Natiuretic Peptide Ordered. EDMS 10:59 Basic Metabolic Profile Ordered. EDMS 10:59 CBC with Diff Ordered. EDMS 10:59 Cardiac Injury Profile Ordered. EDMS 10:59 Prothrombin Time Profile\E\INR Ordered. EDMS 10:59 Troponin Ordered. EDMS 10:59 ECG WITH READING ER PHYS+CARDIAG ordered. EDMS 11:00 portable chest Ordered. EDMS 11:05 Urine Toxicology Ordered. EDMS 11:26 Financial registration complete. mm15 11:28 Aspirin Chewable Tablet 324 mg PO once ordered. ms18 11:29 [facility] Payment Agreement was scanned into [employer] and attached to record. mm15 11:52 Albuterol-Ipratropium 3 ml Inhalation once ordered. fg 11:52 Call Respiratory ordered. fg 11:52 Solu-MEDROL 125 mg IVP once ordered. fg 11:58 Call Respiratory complete. kc3 Administered Medications: 11:13 Not Given (Duplicate Order): Aspirin Chewable Tablet 324 mg PO once rs3 11:35 Drug: Aspirin 324 mg [aspirin 81 mg chewable tablet (4 tabs)] Route: PO; ms18 12:09 Drug: Albuterol-Ipratropium 3 ml [ipratropium-albuterol 0.5 mg-3 mg(2.5 mg base)/3 mL js nebulization soln (3 mL)] Route: Inhalation; 12:11 Drug: Solu-MEDROL 125 mg [Solu-Medrol 500 mg intravenous solution (125 mg)] Route: IVP; kc3 Site: left hand; Signatures: Dispatcher [employer]Host EDMS Paulina Lewis RN RN rs3 Caitlin Russo mm15 Alicia Romero RN RN ms18 Carmen Espino MD MD fg Crane, Kelsi, RN RN kc3 Nahid Rosado The chart was reviewed and I authenticate all verbal orders and agree with the evaluation and treatment provided.Attachments: 11:29 [facility] Payment Agreement mm15 MTDD
--- NOTE | 2016-06-21 13:59 | EDDOCDS ---
Nurse's Notes [facility] Name: Akbar Ulloa Age: 51 yrs Sex: Male : 1965 Arrival Date: 06/21/2016 Time: 10:56 Bed TR7 Private MD: Diagnosis: Chest pain, unspecified Presentation: 06/21 11:04 Presenting complaint: EMS states: chest pain that began 2 days prior with no nausea and kc3 sob reported. 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 Adult Sepsis Screening: Suicide/Homicide risk assessment- the patient denies having any suicidal and/or homicidal ideations and does not present with any other emotional, behavioral or mental health complaints. Status: Patient is not a guest services attendant or dependent. Transition of care: patient was not received from another setting of care. 11:04 Acuity: ELSA Level 3 kc3 11:04 Method Of Arrival: Ambulance kc3 11:10 Adult Sepsis Screening: Patient's respiratory rate is less than 22. Systolic blood rs3 pressure is greater than 100. Patient has a qSOFA score of 0- Negative Sepsis Screen. Triage Assessment: 11:11 General: Appears in no apparent distress. Pain: Location: chest. HIV screening NA for rs3 this visit Offered previously. Cardiovascular: Chest pain is described as Pain is 4 out of 10 on a pain scale. radiates Does not radiate. episodes are intermittent began 1 hour prior to arrival. Historical: - Allergies: no known allergies; - Home Meds: 1. metformin 1,000 mg Oral tr24 1 tab twice a day 2. lisinopril 5 mg Oral tab once daily 3. prednisone 20 mg Oral tab 1 tab 3 times per day pt has not picked up perscription yet. 4. Seroquel 400 mg Oral tab 5. trazodone 300 mg Oral tab 1 tab - PMHx: Bipolar disorder; Diabetes - NIDDM: controlled; Schizophrenia; - PSHx: finger surgery; - Social history: Smoking status: Patient uses tobacco products, light tobacco smoker. No barriers to communication noted, The patient speaks fluent [place]. - : The pt / caregiver states he / she is not on anticoagulants. Home medication list is obtained from the patient. - Exposure Risk Screening:: None identified. Screenin:12 Screening information is obtained from the patient. Fall risk: No risks identified. rs3 Assistance ADL's: requires no assistance with activities of daily living. Abuse/DV Screen: The patient / caregiver reports he/she is: not in a situation that causes fear, pain or injury. Nutritional screening: No deficits noted. Advance Directives: Currently, there is no health care proxy. home support is adequate. Assessment: 11:12 General: Appears in no apparent distress, Behavior is appropriate for age, cooperative. rs3 Pain: Location: chest. Cardiovascular: Rhythm is regular. Derm: Skin is pink, warm & dry. 11:28 General: PT states that he did not take aspirin prior to arrival. ms18 12:12 General: Appears in no apparent distress, comfortable, Behavior is appropriate for age, kc3 cooperative. Pain: Location: chest Pain currently is 8 out of 10 on a pain scale. Neurological: Level of Consciousness is awake, alert, obeys commands, Oriented to person, place, time. Cardiovascular: Rhythm is sinus rhythm Chest pain radiates Does not radiate. Respiratory: Airway is patent Respiratory effort is even, unlabored, Respiratory pattern is regular, symmetrical, Breath sounds are diminished bilaterally. Derm: Skin is pink, warm & dry. 13:10 General: This RN found pt outside with EKG lead wiring still attached to pt and IV kc3 still in place. Pt informed not allowed to leave. Pt reported would like to leave AMA. Dr. Espino and kiln charger aware. IV discontinued. Pt informed of risks and benefits to leaving AMA. AMA form signed. . Vital Signs: 11:15 BP 143 / 97 (auto/); kc3 11:17 BP 147 / 97 LA Sitting (auto/lg); Pulse 98; Resp 18; Temp 97.5; Pulse Ox 96% on R/A; jrd Weight 145.6 kg; Height 6 ft. 2 in. (187.96 cm); Pain 8/10; 11:17 Pulse 98 MON; Pulse Ox 95% ; kc3 11:32 BP 171 / 94 (auto/); kc3 11:33 Pulse 102 MON; Pulse Ox 96% ; kc3 12:02 BP 152 / 80 (auto/); kc3 12:03 Pulse 98 MON; Pulse Ox 97% ; kc3 11:17 Body Mass Index 41.21 (145.60 kg, 187.96 cm) jrd Vitals: 11:12 Log In Time N/A - ambulance arrival. rs3 ED Course: 10:57 Patient visited by Heydi Wilcox, Goal Umpire. deg 10:57 Denice Rojo,RN is Primary Nurse. deg 10:57 Patient moved to Waiting deg 10:57 Patient moved to 17 deg 10:58 Carmen Espino MD is Attending Physician. fg 10:58 Patient visited by Carmen Espino MD. fg 11:03 EKG done. (by ED staff). Reviewed by Carmen Espino MD. jrd 11:09 Patient visited by Rusty Humphries PCA. jrd 11:09 Triage Initiated kc3 11:10 Patient visited by Rusty Humphries PCA. jrd 11:17 Pt greeted and oriented to ED. Patient advised of names of staff involved in care, jrd location of call gallo, wait times and NPO status. Patient has correct armband on for positive identification. Placed in gown. Bed in low position. Call light in reach. Side rails up X2. potline monitor on. Pulse ox on. NIBP on. 11:26 B-Type Natiuretic Peptide Sent. ms18 11:26 Basic Metabolic Profile Sent. ms18 11:26 CBC with Diff Sent. ms18 11:26 Cardiac Injury Profile Sent. ms18 11:26 Prothrombin Time Profile\E\INR Sent. ms18 11:26 Troponin Sent. ms18 11:29 [facility] Payment Agreement was scanned into [employer] and attached to record. mm15 11:35 Patient visited by Alicia Romero RN. ms18 11:35 Urine Toxicology Sent. ms18 12:11 Patient visited by Denice Rojo RN. kc3 12:30 Inserted saline lock: 20 gauge in right hand and blood collected. The patient tolerated kc3 the procedure well. placed by Alicia Romero RN. 13:10 Discontinued IV lock intact, bleeding controlled, pressure dressing applied, No kc3 redness/swelling at site. 13:19 Patient moved to TR7 dls Administered Medications: 11:13 Not Given (Duplicate Order): Aspirin Chewable Tablet 324 mg PO once rs3 11:35 Drug: Aspirin 324 mg [aspirin 81 mg chewable tablet (4 tabs)] Route: PO; ms18 12:09 Drug: Albuterol-Ipratropium 3 ml [ipratropium-albuterol 0.5 mg-3 mg(2.5 mg base)/3 mL js nebulization soln (3 mL)] Route: Inhalation; 12:11 Drug: Solu-MEDROL 125 mg [Solu-Medrol 500 mg intravenous solution (125 mg)] Route: IVP; kc3 Site: left hand; RT: 12:09 Initial Med Neb Given as ordered Patient was instructed and evaluated on procedure js Patient tolerated procedure well without adverse effect. Respiratory: Breath sounds are diminished bilaterally. Order Results: Lab Order: B-Type Natiuretic Peptide; SPEC'M 06/21/16 11:23 Test: BRAIN NATRIURETIC PEPTIDE; Value: < 5.0; Range: <100; Units: PG/ML; Status: F Lab Order: Basic Metabolic Profile; SPEC'M 06/21/16 11:23 Test: GLUCOSE, FASTING; Value: 248; Range: 70-105; Abnormal: Above high normal; Units: MG/DL; Status: F Test: BLOOD UREA NITROGEN; Value: 15; Range: 7-18; Units: MG/DL; Status: F Test: CREATININE FOR GFR; Value: 1.46; Range: 0.70-1.30; Abnormal: Above high normal; Units: MG/DL; Status: F Test: GLOMERULAR FILTRATION RATE; Value: > 60.0; Range: >56; Status: F Test: SODIUM LEVEL; Value: 136; Range: 136-145; Units: MEQ/L; Status: F Test: POTASSIUM SERUM; Value: 4.1; Range: 3.5-5.1; Units: MEQ/L; Status: F Test: CHLORIDE LEVEL; Value: 100; Range: 98-107; Units: MEQ/L; Status: F Test: CARBON DIOXIDE LEVEL; Value: 26; Range: 21-32; Units: MEQ/L; Status: F Test: ANION GAP; Value: 10; Range: 8-16; Units: MEQ/L; Status: F Test: CALCIUM LEVEL; Value: 8.8; Range: 8.5-10.1; Units: MG/DL; Status: F Test Note: ; Units are mL/min/1.73 m2 Chronic Kidney Disease Staging per NKF: Stage I & II GFR >=60 Normal to Mildly Decreased Stage III GFR 30-59 Moderately Decreased Stage IV GFR 15-29 Severely Decreased Stage V GFR <15 Very Little GFR Left ESRD GFR <15 on LAST GREASER Lab Order: CBC with Diff; SPEC'M 06/21/16 11:23 Test: WHITE BLOOD COUNT; Value: 9.6; Range: 4.0-10.0; Units: K/mm3; Status: F Test: RED BLOOD COUNT; Value: 5.09; Range: 4.30-6.10; Units: M/mm3; Status: F Test: HEMOGLOBIN; Value: 14.6; Range: 14.0-18.0; Units: g/dl; Status: F Test: HEMATOCRIT; Value: 42.4; Range: 42.0-52.0; Units: %; Status: F Test: MEAN CORPUSCULAR VOLUME; Value: 83.4; Range: 80.0-96.0; Units: fl; Status: F Test: MEAN CORPUSCULAR HEMOGLOBIN; Value: 28.8; Range: 27.0-33.0; Units: pg; Status: F Test: MEAN CORPUSCULAR HGB CONC; Value: 34.5; Range: 32.0-36.5; Units: g/dl; Status: F Test: RED CELL DISTRIBUTION WIDTH; Value: 12.9; Range: 11.5-14.5; Units: %; Status: F Test: PLATELET COUNT, AUTOMATED; Value: 206; Range: 150-450; Units: k/mm3; Status: F Test: NEUTROPHILS %; Value: 66.1; Range: 36.0-66.0; Abnormal: Above high normal; Units: %; Status: F Test: LYMPH %; Value: 25.5; Range: 24.0-44.0; Units: %; Status: F Test: MONO %; Value: 5.4; Range: 0.0-5.0; Abnormal: Above high normal; Units: %; Status: F Test: EOS %; Value: 0.6; Range: 0.0-3.0; Units: %; Status: F Test: BASO %; Value: 0.2; Range: 0.0-1.0; Units: %; Status: F Test: LARGE UNSTAINED CELL %; Value: 2.1; Range: 0.0-4.0; Units: %; Status: F Test: NEUTROPHILS #; Value: 6.4; Range: 1.8-7.7; Units: K/mm3; Status: F Test: LYMPH #; Value: 2.5; Range: 1.5-4.5; Units: K/mm3; Status: F Test: MONO #; Value: 0.5; Range: 0.0-0.8; Units: K/mm3; Status: F Test: EOS #; Value: 0.1; Range: 0.0-0.50; Units: K/mm3; Status: F Test: BASO #; Value: 0.0; Range: 0.0-0.2; Units: K/mm3; Status: F Test: LARGE UNSTAINED CELL #; Value: 0.2; Range: 0.0-0.4; Units: K/mm3; Status: F Lab Order: Cardiac Injury Profile; [facility] 06/21/16 11:23 Test: CPK CREATINE PHOSPHOKINASE; Value: 793; Range: 39-308; Abnormal: Above high normal; Units: U/L; Status: F Test: CK-MB VALUE MASS; Value: 3.4; Range: 0.0-3.6; Units: NG/ML; Status: F Test: MB/CK RELATIVE INDEX; Value: 0.42; Range: < OR =4; Status: F Test Note: ; DIAGNOSIS CRITERIA MMB ng/ml Relative Index (RI) NON-AMI < or = 5 N/A F[place]ONE > 5 < or = 4 AMI > 5 > 4 Lab Order: Prothrombin Time Profile\E\INR; [facility] 06/21/16 11:23 Test: PROTHROMBIN TIME; Value: 13.5; Range: 12.3-14.5; Units: SECONDS; Status: F Test: INR; Value: 1.02; Status: F Test Note: ; THERAPUTIC HUMAN INR VALUES INDICATIONS NORMAL RANGES PROPHYLAXIS/TREATMENT OF: VENOUS THROMBOSIS 2.0-3.0 PULMONARY EMBOLISM 2.0-3.0 PREVENTION OF SYSTEMIC EMBOLISM FROM: TISSUE HEART VALVES 2.0-3.0 ACUTE MYOCARDIAL INFARCTION 2.0-3.0 VALVULAR HEART DISEASE 2.0-3.0 ATRIAL FIBRILLATION 2.0-3.0 MECHANICAL VALVES(HIGH RISK) 2.5-3.5 RECURRENT MYOCARDIAL INFARCTION 2.5-3.5 Lab Order: Troponin; [facility] 06/21/16 11:23 Test: TROPONIN I; Value: < 0.02; Range: < 0.10; Units: NG/ML; Status: F Test Note: ; Troponin I Reference Interval for [employer] [place] LOCI: 99th Percentile= 0.00-0.045 ng/ml Risk Stratification: <= 0.10 ng/ml Decreased Risk for Adverse Clinical Events. 0.10-1.50 ng/ml Increased Risk for Adverse Clinical Events. Evaluation of additional criterion and/or repeat testing in 2-6 hours is suggested to rule out myocardial damage. >= 1.50 ng/ml Indicative of Myocardial Injury. Lab Order: Urine Toxicology; SPEC'M 06/21/16 11:26 Test: AMPHETAMINES LEVEL URINE; Value: NEGATIVE; Range: NEGATIVE; Status: F Test: BARBITURATES URINE; Value: NEGATIVE; Range: NEGATIVE; Status: F Test: BENZODIAZEPINES URINE; Value: NEGATIVE; Range: NEGATIVE; Status: F Test: CANNABINOIDS URINE; Value: NEGATIVE; Range: NEGATIVE; Status: F Test: COCAINE METABOLITE URINE; Value: NEGATIVE; Range: NEGATIVE; Status: F Test: METHADONE URINE; Value: NEGATIVE; Range: NEGATIVE; Status: F Test: OPIATES URINE; Value: NEGATIVE; Range: NEGATIVE; Status: F Test: TRICYCLIC ANTIDEPRESS URINE; Value: NEGATIVE; Range: NEGATIVE; Status: F Test Note: ; ALL PRESUMPTIVE POSITIVE FINDINGS ARE UNCONFIRMED NORMAL VALUES THRESHOLD IN NG/ML AMPHETAMINES 1000 METHAMPHETAMINES 1000 BARBITURATES 300 BENZODIAZEPINES 300 CANNABINOIDS (THC) 50 COCAINE METABOLITE 300 METHADONE 300 OPIATES 300 PHENCYCLIDINE 25 TRICYCLIC ANTIDEPRESSANTS 1000 RESULTS ARE FOR MEDICAL PURPOSES ONLY. ALL URINE SPECIMENS WILL BE SAVED FOR 3 DAYS. IF CONFIRMATION OF A PRESUMPTIVE POSTIVE SCREEN RESULT IS DESIRED, CALL CHEMISTRY ([phone]) AND REQUEST URINE TO BE SENT TO REFERENCE LAB. FOR A LIST OF CLOSELY RELATED COMPOUNDS PLEASE CALL THE LAB. Outcome: 13:02 The patient is leaving AMA: AMA form signed, Notification of AMA status is made to the [facility] charge nurse, the foster care social worker, the ED attending physician. 13:04 Patient left against medical advice. fg 13:58 Patient left the ED. [facility] Signatures: Heydi Wilcox, Goal Umpire Unit deg Amanda Carpenter RN RN dls Sumell, James js Soosairaj, RosemaryRN RN rs3 Caitlin Russo mm15 Alicia Romero RN RN ms18 Rusty Humphries, SCHEDULING COORDINATOR SCHEDULING COORDINATOR jrd Carmen Espino MD MD Denice Rojo,RN RN kc3 Corrections: (The following items were deleted from the chart) 11:10 11:09 EKG done. (by ED staff). Reviewed by Carmen river jrd MTDD
--- NOTE | 2016-06-22 15:35 | ECGEPIP ---
Stationary ECG Study [facility] - ED Test Date: 2016-06-21 Pat Name: BRIGID FLORES Department: Room: - Gender: M Finisher Hot Strip: aleta : 1965 Requested By: CM Arredondo Order Number: [id number] Reading MD: Magui Parnell Measurements Intervals [place] Rate: 99 P: 35 [place]: 156 QRS: 9 QRSD: 89 T: 7 QT: 351 QTc: 451 Interpretive Statements SINUS RHYTHM NONSPECIFIC T-WAVE ABNORMALITY SIMILAR 13:04 Electronically Signed On 06-22-2016 15:34:46 EST by Magui Parnell
--- NOTE | 2016-06-23 08:30 | REP ---
Portable chest, single AP view, patient sitting: Comparisons are the portable chest of 06/20/2016 and PA and lateral chest of 08/29/2015. The focal zones of discoid atelectasis noted on 2016 inferiorly in the right lung have resolved. Lung malhotra are clear. Cardiac size is magnified by portable positioning. The christine, mediastinum, and bony thorax are unremarkable. Impression: No acute cardiopulmonary findings. The discoid atelectasis noted in the right lung previously have resolved. Signed by Parish Rockwell MD 06/21/2016 11:27 A
--- NOTE | 2016-06-23 14:59 | EDDOCDS ---
Physician Documentation [facility] Name: Akbar Ulloa Age: 51 yrs Sex: Male : 1965 Arrival Date: 06/21/2016 Time: 10:56 Bed TR7 Private MD: Disposition: 06/21/16 13:04 Patient has left against medical advice. Impression: Chest pain, unspecified. - Patients states they are going to Home/Self Care. - Condition is Good. Medication Reconciliation, Local Pharmacy Hours form. Follow up: Private Physician; When: Call to arrange an appointment; Reason: Continuance of care. - Problem is an ongoing problem. - Symptoms are unchanged. Historical: - Allergies: no known allergies; - Home Meds: 1. metformin 1,000 mg Oral tr24 1 tab twice a day 2. lisinopril 5 mg Oral tab once daily 3. prednisone 20 mg Oral tab 1 tab 3 times per day pt has not picked up perscription yet. 4. Seroquel 400 mg Oral tab 5. trazodone 300 mg Oral tab 1 tab - PMHx: Bipolar disorder; Diabetes - NIDDM: controlled; Schizophrenia; - PSHx: finger surgery; - Social history: Smoking status: Patient uses tobacco products, light tobacco smoker. No barriers to communication noted, The patient speaks fluent Sinhala. - : The pt / caregiver states he / she is not on anticoagulants. Home medication list is obtained from the patient. - Exposure Risk Screening:: None identified. Vital Signs: 06/21 11:15 BP 143 / 97 (auto/); kc3 11:17 BP 147 / 97 LA Sitting (auto/lg); Pulse 98; Resp 18; Temp 97.5; Pulse Ox 96% on R/A; jrd Weight 145.6 kg / 320.99 lbs; Height 6 ft. 2 in. (187.96 cm); Pain 8/10; 11:17 Pulse 98 MON; Pulse Ox 95% ; kc3 11:32 BP 171 / 94 (auto/); kc3 11:33 Pulse 102 MON; Pulse Ox 96% ; kc3 12:02 BP 152 / 80 (auto/); kc3 12:03 Pulse 98 MON; Pulse Ox 97% ; kc3 11:17 Body Mass Index 41.21 (145.60 kg, 187.96 cm) jrd MDM: 10:58 Aspirin Chewable Tablet 324 mg PO once ordered. fg 10:58 Couturiere/Pulse Ox/q 30 min VS ordered. fg 10:58 IV Saline Lock ordered. fg 10:58 Rhythm Strip to chart ordered. fg 10:58 Undress patient appropriately for examination ordered. fg 10:59 B-Type Natiuretic Peptide Ordered. EDMS 10:59 Basic Metabolic Profile Ordered. EDMS 10:59 CBC with Diff Ordered. EDMS 10:59 Cardiac Injury Profile Ordered. EDMS 10:59 Prothrombin Time Profile\E\INR Ordered. EDMS 10:59 Troponin Ordered. EDMS 10:59 ECG WITH READING ER PHYS+CARDIAG ordered. EDMS 11:00 portable chest Ordered. EDMS 11:05 Urine Toxicology Ordered. EDMS 11:26 Financial registration complete. mm15 11:28 Aspirin Chewable Tablet 324 mg PO once ordered. ms18 11:29 [facility] Payment Agreement was scanned into [employer] and attached to record. mm15 11:52 Albuterol-Ipratropium 3 ml Inhalation once ordered. fg 11:52 Call Respiratory ordered. fg 11:52 Solu-MEDROL 125 mg IVP once ordered. fg 11:58 Call Respiratory complete. kc3 17:30 T-Sheet-- Draft Copy was scanned into [employer] and attached to record. klr 06/22 20:05 Trend VS was scanned into [employer] and attached to record. kf3 20:05 Refusal of Services was scanned into [employer] and attached to record. kf3 Administered Medications: 06/21 11:13 Not Given (Duplicate Order): Aspirin Chewable Tablet 324 mg PO once rs3 11:35 Drug: Aspirin 324 mg [aspirin 81 mg chewable tablet (4 tabs)] Route: PO; ms18 12:09 Drug: Albuterol-Ipratropium 3 ml [ipratropium-albuterol 0.5 mg-3 mg(2.5 mg base)/3 mL js nebulization soln (3 mL)] Route: Inhalation; 12:11 Drug: Solu-MEDROL 125 mg [Solu-Medrol 500 mg intravenous solution (125 mg)] Route: IVP; kc3 Site: left hand; Signatures: Dispatcher [employer] EDMS Dano Alcala, Reg Reg kf3 Paulina Lewis RN RN rs3 Caitlin Russo mm15 Alicia Romero RN RN ms18 Carmen Espino MD MD fg Denice Rojo RN RN kc3 Atiya Joyce James js The chart was reviewed and I authenticate all verbal orders and agree with the evaluation and treatment provided.Attachments: 11:29 [facility] Payment Agreement mm15 17:30 T-Sheet-- Draft Copy sarah Chart Complete MTDD
--- NOTE | 2016-06-23 14:59 | EDDOCDS ---
Nurse's Notes [facility] Name: Akbar Flores Age: 51 yrs Sex: Male : 1965 Arrival Date: 06/21/2016 Time: 10:56 Bed TR7 Private MD: Diagnosis: Chest pain, unspecified Presentation: 06/21 11:04 Presenting complaint: EMS states: chest pain that began 2 days prior with no nausea and kc3 sob reported. 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 Adult Sepsis Screening: Suicide/Homicide risk assessment- the patient denies having any suicidal and/or homicidal ideations and does not present with any other emotional, behavioral or mental health complaints. Status: Patient is not a home service consultant or dependent. Transition of care: patient was not received from another setting of care. 11:04 Acuity: ELSA Level 3 kc3 11:04 Method Of Arrival: Ambulance kc3 11:10 Adult Sepsis Screening: Patient's respiratory rate is less than 22. Systolic blood rs3 pressure is greater than 100. Patient has a qSOFA score of 0- Negative Sepsis Screen. Triage Assessment: 11:11 General: Appears in no apparent distress. Pain: Location: chest. HIV screening NA for rs3 this visit Offered previously. Cardiovascular: Chest pain is described as Pain is 4 out of 10 on a pain scale. radiates Does not radiate. episodes are intermittent began 1 hour prior to arrival. Historical: - Allergies: no known allergies; - Home Meds: 1. metformin 1,000 mg Oral tr24 1 tab twice a day 2. lisinopril 5 mg Oral tab once daily 3. prednisone 20 mg Oral tab 1 tab 3 times per day pt has not picked up perscription yet. 4. Seroquel 400 mg Oral tab 5. trazodone 300 mg Oral tab 1 tab - PMHx: Bipolar disorder; Diabetes - NIDDM: controlled; Schizophrenia; - PSHx: finger surgery; - Social history: Smoking status: Patient uses tobacco products, light tobacco smoker. No barriers to communication noted, The patient speaks fluent Mongolian. - : The pt / caregiver states he / she is not on anticoagulants. Home medication list is obtained from the patient. - Exposure Risk Screening:: None identified. Screenin:12 Screening information is obtained from the patient. Fall risk: No risks identified. rs3 Assistance ADL's: requires no assistance with activities of daily living. Abuse/DV Screen: The patient / caregiver reports he/she is: not in a situation that causes fear, pain or injury. Nutritional screening: No deficits noted. Advance Directives: Currently, there is no health care proxy. home support is adequate. Assessment: 11:12 General: Appears in no apparent distress, Behavior is appropriate for age, cooperative. rs3 Pain: Location: chest. Cardiovascular: Rhythm is regular. Derm: Skin is pink, warm & dry. 11:28 General: PT states that he did not take aspirin prior to arrival. ms18 12:12 General: Appears in no apparent distress, comfortable, Behavior is appropriate for age, kc3 cooperative. Pain: Location: chest Pain currently is 8 out of 10 on a pain scale. Neurological: Level of Consciousness is awake, alert, obeys commands, Oriented to person, place, time. Cardiovascular: Rhythm is sinus rhythm Chest pain radiates Does not radiate. Respiratory: Airway is patent Respiratory effort is even, unlabored, Respiratory pattern is regular, symmetrical, Breath sounds are diminished bilaterally. Derm: Skin is pink, warm & dry. 13:10 General: This RN found pt outside with EKG lead wiring still attached to pt and IV kc3 still in place. Pt informed not allowed to leave. Pt reported would like to leave AMA. Dr. Espino and ore charger aware. IV discontinued. Pt informed of risks and benefits to leaving AMA. AMA form signed. . Social Work Consult: 16:14 LWBS/AMA AMA: Patient is refusing further stabilizing treatment at [facility], although ml4 offered treatment regardless of method of payment or ability to pay. Patient is aware that this action is being undertaken against the advice of the medical staff at [facility]. Pt. has capacity to understand the potential consequences of this choice. pt did not notify ED staff. Patient / Guardian did not sign a Refusal of Services form. Pt left before being seen by PSA. Vital Signs: 11:15 BP 143 / 97 (auto/); kc3 11:17 BP 147 / 97 LA Sitting (auto/lg); Pulse 98; Resp 18; Temp 97.5; Pulse Ox 96% on R/A; jrd Weight 145.6 kg; Height 6 ft. 2 in. (187.96 cm); Pain 8/10; 11:17 Pulse 98 MON; Pulse Ox 95% ; kc3 11:32 BP 171 / 94 (auto/); kc3 11:33 Pulse 102 MON; Pulse Ox 96% ; kc3 12:02 BP 152 / 80 (auto/); kc3 12:03 Pulse 98 MON; Pulse Ox 97% ; kc3 11:17 Body Mass Index 41.21 (145.60 kg, 187.96 cm) jrd Vitals: 11:12 Log In Time N/A - ambulance arrival. rs3 ED Course: 10:57 Patient visited by Heydi Wilcox, Store Person. deg 10:57 Denice Rojo,RN is Primary Nurse. deg 10:57 Patient moved to Waiting deg 10:57 Patient moved to 17 deg 10:58 Carmen Espino MD is Attending Physician. fg 10:58 Patient visited by Carmen Espino MD. fg 11:03 EKG done. (by ED staff). Reviewed by Carmen Espino MD. jrd 11:09 Patient visited by Rusty Humphries PCA. jrd 11:09 Triage Initiated kc3 11:10 Patient visited by Rusty Humphries PCA. jrd 11:17 Pt greeted and oriented to ED. Patient advised of names of staff involved in care, jrd location of call gallo, wait times and NPO status. Patient has correct armband on for positive identification. Placed in gown. Bed in low position. Call light in reach. Side rails up X2. production line welder on. Pulse ox on. NIBP on. 11:26 B-Type Natiuretic Peptide Sent. ms18 11:26 Basic Metabolic Profile Sent. ms18 11:26 CBC with Diff Sent. ms18 11:26 Cardiac Injury Profile Sent. ms18 11:26 Prothrombin Time Profile\E\INR Sent. ms18 11:26 Troponin Sent. ms18 11:29 [facility] Payment Agreement was scanned into [employer] and attached to record. mm15 11:35 Patient visited by Alicia Romero RN. ms18 11:35 Urine Toxicology Sent. ms18 12:11 Patient visited by Denice Rojo,EDWARD. kc3 12:30 Inserted saline lock: 20 gauge in right hand and blood collected. The patient tolerated kc3 the procedure well. placed by Alicia Romero RN. 13:10 Discontinued IV lock intact, bleeding controlled, pressure dressing applied, No kc3 redness/swelling at site. 13:19 Patient moved to TR7 dls 17:30 T-Sheet-- Draft Copy was scanned into [employer] and attached to record. klr 06/22 16:03 EKG-ADULT Returned. EDMS 20:05 Trend VS was scanned into [employer] and attached to record. kf3 20:05 Refusal of Services was scanned into [employer] and attached to record. kf3 06/23 08:50 portable chest Returned. EDMS Administered Medications: 06/21 11:13 Not Given (Duplicate Order): Aspirin Chewable Tablet 324 mg PO once rs3 11:35 Drug: Aspirin 324 mg [aspirin 81 mg chewable tablet (4 tabs)] Route: PO; ms18 12:09 Drug: Albuterol-Ipratropium 3 ml [ipratropium-albuterol 0.5 mg-3 mg(2.5 mg base)/3 mL js nebulization soln (3 mL)] Route: Inhalation; 12:11 Drug: Solu-MEDROL 125 mg [Solu-Medrol 500 mg intravenous solution (125 mg)] Route: IVP; kc3 Site: left hand; Attachments: 06/22 20:05 Trend VS kf3 20:05 Refusal of Services kf3 RT: 06/21 12:09 Initial Med Neb Given as ordered Patient was instructed and evaluated on procedure js Patient tolerated procedure well without adverse effect. Respiratory: Breath sounds are diminished bilaterally. Order Results: Lab Order: B-Type Natiuretic Peptide; SPEC'M 06/21/16 11:23 Test: BRAIN NATRIURETIC PEPTIDE; Value: < 5.0; Range: <100; Units: PG/ML; Status: F Lab Order: Basic Metabolic Profile; SPEC'M 06/21/16 11:23 Test: GLUCOSE, FASTING; Value: 248; Range: 70-105; Abnormal: Above high normal; Units: MG/DL; Status: F Test: BLOOD UREA NITROGEN; Value: 15; Range: 7-18; Units: MG/DL; Status: F Test: CREATININE FOR GFR; Value: 1.46; Range: 0.70-1.30; Abnormal: Above high normal; Units: MG/DL; Status: F Test: GLOMERULAR FILTRATION RATE; Value: > 60.0; Range: >56; Status: F Test: SODIUM LEVEL; Value: 136; Range: 136-145; Units: MEQ/L; Status: F Test: POTASSIUM SERUM; Value: 4.1; Range: 3.5-5.1; Units: MEQ/L; Status: F Test: CHLORIDE LEVEL; Value: 100; Range: 98-107; Units: MEQ/L; Status: F Test: CARBON DIOXIDE LEVEL; Value: 26; Range: 21-32; Units: MEQ/L; Status: F Test: ANION GAP; Value: 10; Range: 8-16; Units: MEQ/L; Status: F Test: CALCIUM LEVEL; Value: 8.8; Range: 8.5-10.1; Units: MG/DL; Status: F Test Note: ; Units are mL/min/1.73 m2 Chronic Kidney Disease Staging per NKF: Stage I & II GFR >=60 Normal to Mildly Decreased Stage III GFR 30-59 Moderately Decreased Stage IV GFR 15-29 Severely Decreased Stage V GFR <15 Very Little GFR Left ESRD GFR <15 on MATCH MARKER Lab Order: CBC with Diff; SPEC'M 06/21/16 11:23 Test: WHITE BLOOD COUNT; Value: 9.6; Range: 4.0-10.0; Units: K/mm3; Status: F Test: RED BLOOD COUNT; Value: 5.09; Range: 4.30-6.10; Units: M/mm3; Status: F Test: HEMOGLOBIN; Value: 14.6; Range: 14.0-18.0; Units: g/dl; Status: F Test: HEMATOCRIT; Value: 42.4; Range: 42.0-52.0; Units: %; Status: F Test: MEAN CORPUSCULAR VOLUME; Value: 83.4; Range: 80.0-96.0; Units: fl; Status: F Test: MEAN CORPUSCULAR HEMOGLOBIN; Value: 28.8; Range: 27.0-33.0; Units: pg; Status: F Test: MEAN CORPUSCULAR HGB CONC; Value: 34.5; Range: 32.0-36.5; Units: g/dl; Status: F Test: RED CELL DISTRIBUTION WIDTH; Value: 12.9; Range: 11.5-14.5; Units: %; Status: F Test: PLATELET COUNT, AUTOMATED; Value: 206; Range: 150-450; Units: k/mm3; Status: F Test: NEUTROPHILS %; Value: 66.1; Range: 36.0-66.0; Abnormal: Above high normal; Units: %; Status: F Test: LYMPH %; Value: 25.5; Range: 24.0-44.0; Units: %; Status: F Test: MONO %; Value: 5.4; Range: 0.0-5.0; Abnormal: Above high normal; Units: %; Status: F Test: EOS %; Value: 0.6; Range: 0.0-3.0; Units: %; Status: F Test: BASO %; Value: 0.2; Range: 0.0-1.0; Units: %; Status: F Test: LARGE UNSTAINED CELL %; Value: 2.1; Range: 0.0-4.0; Units: %; Status: F Test: NEUTROPHILS #; Value: 6.4; Range: 1.8-7.7; Units: K/mm3; Status: F Test: LYMPH #; Value: 2.5; Range: 1.5-4.5; Units: K/mm3; Status: F Test: MONO #; Value: 0.5; Range: 0.0-0.8; Units: K/mm3; Status: F Test: EOS #; Value: 0.1; Range: 0.0-0.50; Units: K/mm3; Status: F Test: BASO #; Value: 0.0; Range: 0.0-0.2; Units: K/mm3; Status: F Test: LARGE UNSTAINED CELL #; Value: 0.2; Range: 0.0-0.4; Units: K/mm3; Status: F Lab Order: Cardiac Injury Profile; SPEC'M 06/21/16 11:23 Test: CPK CREATINE PHOSPHOKINASE; Value: 793; Range: 39-308; Abnormal: Above high normal; Units: U/L; Status: F Test: CK-MB VALUE MASS; Value: 3.4; Range: 0.0-3.6; Units: NG/ML; Status: F Test: MB/CK RELATIVE INDEX; Value: 0.42; Range: < OR =4; Status: F Test Note: ; DIAGNOSIS CRITERIA MMB ng/ml Relative Index (RI) NON-AMI < or = 5 N/A FARRIS ZONE > 5 < or = 4 AMI > 5 > 4 Lab Order: Prothrombin Time Profile\E\INR; SPEC'M 06/21/16 11:23 Test: PROTHROMBIN TIME; Value: 13.5; Range: 12.3-14.5; Units: SECONDS; Status: F Test: INR; Value: 1.02; Status: F Test Note: ; THERAPUTIC HUMAN INR VALUES INDICATIONS NORMAL RANGES PROPHYLAXIS/TREATMENT OF: VENOUS THROMBOSIS 2.0-3.0 PULMONARY EMBOLISM 2.0-3.0 PREVENTION OF SYSTEMIC EMBOLISM FROM: TISSUE HEART VALVES 2.0-3.0 ACUTE MYOCARDIAL INFARCTION 2.0-3.0 VALVULAR HEART DISEASE 2.0-3.0 ATRIAL FIBRILLATION 2.0-3.0 MECHANICAL VALVES(HIGH RISK) 2.5-3.5 RECURRENT MYOCARDIAL INFARCTION 2.5-3.5 Lab Order: Troponin; SPEC'M 06/21/16 11:23 Test: TROPONIN I; Value: < 0.02; Range: < 0.10; Units: NG/ML; Status: F Test Note: ; Troponin I Reference Interval for Siemens Popbasic LOCI: 99th Percentile= 0.00-0.045 ng/ml Risk Stratification: <= 0.10 ng/ml Decreased Risk for Adverse Clinical Events. 0.10-1.50 ng/ml Increased Risk for Adverse Clinical Events. Evaluation of additional criterion and/or repeat testing in 2-6 hours is suggested to rule out myocardial damage. >= 1.50 ng/ml Indicative of Myocardial Injury. Lab Order: Urine Toxicology; SPEC'M 06/21/16 11:26 Test: AMPHETAMINES LEVEL URINE; Value: NEGATIVE; Range: NEGATIVE; Status: F Test: BARBITURATES URINE; Value: NEGATIVE; Range: NEGATIVE; Status: F Test: BENZODIAZEPINES URINE; Value: NEGATIVE; Range: NEGATIVE; Status: F Test: CANNABINOIDS URINE; Value: NEGATIVE; Range: NEGATIVE; Status: F Test: COCAINE METABOLITE URINE; Value: NEGATIVE; Range: NEGATIVE; Status: F Test: METHADONE URINE; Value: NEGATIVE; Range: NEGATIVE; Status: F Test: OPIATES URINE; Value: NEGATIVE; Range: NEGATIVE; Status: F Test: TRICYCLIC ANTIDEPRESS URINE; Value: NEGATIVE; Range: NEGATIVE; Status: F Test Note: ; ALL PRESUMPTIVE POSITIVE FINDINGS ARE UNCONFIRMED NORMAL VALUES THRESHOLD IN NG/ML AMPHETAMINES 1000 METHAMPHETAMINES 1000 BARBITURATES 300 BENZODIAZEPINES 300 CANNABINOIDS (THC) 50 COCAINE METABOLITE 300 METHADONE 300 OPIATES 300 PHENCYCLIDINE 25 TRICYCLIC ANTIDEPRESSANTS 1000 RESULTS ARE FOR MEDICAL PURPOSES ONLY. ALL URINE SPECIMENS WILL BE SAVED FOR 3 DAYS. IF CONFIRMATION OF A PRESUMPTIVE POSTIVE SCREEN RESULT IS DESIRED, CALL CHEMISTRY ([phone]) AND REQUEST URINE TO BE SENT TO REFERENCE LAB. FOR A LIST OF CLOSELY RELATED COMPOUNDS PLEASE CALL THE LAB. Radiology Order: portable chest Test: portable chest REASON FOR EXAMINATION: Chest Pain; Portable chest, single AP view, patient sitting:; ; Comparisons are the portable chest of 06/20/2016 and PA and lateral chest of; 08/29/2015.; ; The focal zones of discoid atelectasis noted on 2016 inferiorly in the; right lung have resolved.; ; Lung malhotra are clear. Cardiac size is magnified by portable positioning. The; christine, mediastinum, and bony thorax are unremarkable.; ; Impression:; ; No acute cardiopulmonary findings. The discoid atelectasis noted in the right; lung previously have resolved.; ; ; ; ; Signed by; Parish Rockwell MD 06/21/2016 11:27 A; Radiology Order: EKG-ADULT Test: EKG-ADULT REASON FOR EXAMINATION: Chest Pain; Stationary ECG Study; [facility] - ED; ; Test Date: 2016-06-21; Pat Name: AKBAR FLORES Department:; Room: -; Gender: M Environmental Consultant: aleta; : 1965 Requested By: CARMEN Arredondo; Order Number: [id number] Reading MD: Magui Parnell; Measurements; Intervals [place]; Rate: 99 P: 35; W[place]: 156 QRS: 9; QRSD: 89 T: 7; QT: 351; QTc: 451; Interpretive Statements; SINUS RHYTHM; NONSPECIFIC T-WAVE ABNORMALITY; SIMILAR 13:04; Electronically Signed On 06-22-2016 15:34:46 EST by Magui Parnell; Outcome: 13:02 The patient is leaving AMA: AMA form signed, Notification of AMA status is made to the 3 charge nurse, the social and political studies professor, the ED attending physician. 13:04 Patient left against medical advice. fg 13:[address] [facility] Signatures: Dispatcher [employer] EDMS Heydi Wilcox, Store Person Unit deg Amanda Carpenter, RN RN dls Alonzo,Nahid js Vamshi, Debo, PSA PSA ml4 Dano Alcala, Reg Reg kf3 Paulina Lewis RN RN rs3 Caitlin Russo mm15 Alicia Romero RN RN ms18 Rusty Humphries, BINGO CHECKER BINGO CHECKER Carmen Davis MD MD fg Denice Rojo RN RN kc3 Atiya Joyce Corrections: (The following items were deleted from the chart) 11:10 11:09 EKG done. (by ED staff). Reviewed by Carmen Espino MD jrd jrd Chart Complete MTDD
--- NOTE | 2016-06-23 14:59 | EDDOCDS ---
Physician Documentation [facility] Name: Akbar Ulloa Age: 51 yrs Sex: Male : 1965 Arrival Date: 06/21/2016 Time: 10:56 Bed TR7 Private MD: Disposition: 06/21/16 13:04 Patient has left against medical advice. Impression: Chest pain, unspecified. - Patients states they are going to Home/Self Care. - Condition is Good. Medication Reconciliation, Local Pharmacy Hours form. Follow up: Private Physician; When: Call to arrange an appointment; Reason: Continuance of care. - Problem is an ongoing problem. - Symptoms are unchanged. Historical: - Allergies: no known allergies; - Home Meds: 1. metformin 1,000 mg Oral tr24 1 tab twice a day 2. lisinopril 5 mg Oral tab once daily 3. prednisone 20 mg Oral tab 1 tab 3 times per day pt has not picked up perscription yet. 4. Seroquel 400 mg Oral tab 5. trazodone 300 mg Oral tab 1 tab - PMHx: Bipolar disorder; Diabetes - NIDDM: controlled; Schizophrenia; - PSHx: finger surgery; - Social history: Smoking status: Patient uses tobacco products, light tobacco smoker. No barriers to communication noted, The patient speaks fluent Kinyarwanda. - : The pt / caregiver states he / she is not on anticoagulants. Home medication list is obtained from the patient. - Exposure Risk Screening:: None identified. Vital Signs: 06/21 11:15 BP 143 / 97 (auto/); kc3 11:17 BP 147 / 97 LA Sitting (auto/lg); Pulse 98; Resp 18; Temp 97.5; Pulse Ox 96% on R/A; jrd Weight 145.6 kg / 320.99 lbs; Height 6 ft. 2 in. (187.96 cm); Pain 8/10; 11:17 Pulse 98 MON; Pulse Ox 95% ; kc3 11:32 BP 171 / 94 (auto/); kc3 11:33 Pulse 102 MON; Pulse Ox 96% ; kc3 12:02 BP 152 / 80 (auto/); kc3 12:03 Pulse 98 MON; Pulse Ox 97% ; kc3 11:17 Body Mass Index 41.21 (145.60 kg, 187.96 cm) jrd MDM: 10:58 Aspirin Chewable Tablet 324 mg PO once ordered. fg 10:58 Herb Counselor/Pulse Ox/q 30 min VS ordered. fg 10:58 IV Saline Lock ordered. fg 10:58 Rhythm Strip to chart ordered. fg 10:58 Undress patient appropriately for examination ordered. fg 10:59 B-Type Natiuretic Peptide Ordered. EDMS 10:59 Basic Metabolic Profile Ordered. EDMS 10:59 CBC with Diff Ordered. EDMS 10:59 Cardiac Injury Profile Ordered. EDMS 10:59 Prothrombin Time Profile\E\INR Ordered. EDMS 10:59 Troponin Ordered. EDMS 10:59 ECG WITH READING ER PHYS+CARDIAG ordered. EDMS 11:00 portable chest Ordered. EDMS 11:05 Urine Toxicology Ordered. EDMS 11:26 Financial registration complete. mm15 11:28 Aspirin Chewable Tablet 324 mg PO once ordered. ms18 11:29 [facility] Payment Agreement was scanned into [employer] and attached to record. mm15 11:52 Albuterol-Ipratropium 3 ml Inhalation once ordered. fg 11:52 Call Respiratory ordered. fg 11:52 Solu-MEDROL 125 mg IVP once ordered. fg 11:58 Call Respiratory complete. kc3 17:30 T-Sheet-- Draft Copy was scanned into [employer] and attached to record. klr 06/22 20:05 Trend VS was scanned into [employer] and attached to record. kf3 20:05 Refusal of Services was scanned into [employer] and attached to record. kf3 Administered Medications: 06/21 11:13 Not Given (Duplicate Order): Aspirin Chewable Tablet 324 mg PO once rs3 11:35 Drug: Aspirin 324 mg [aspirin 81 mg chewable tablet (4 tabs)] Route: PO; ms18 12:09 Drug: Albuterol-Ipratropium 3 ml [ipratropium-albuterol 0.5 mg-3 mg(2.5 mg base)/3 mL js nebulization soln (3 mL)] Route: Inhalation; 12:11 Drug: Solu-MEDROL 125 mg [Solu-Medrol 500 mg intravenous solution (125 mg)] Route: IVP; kc3 Site: left hand; Signatures: Dispatcher [employer] EDMS Dano Alcala, Reg Reg kf3 Paulina Lewis RN RN rs3 Caitlin Russo mm15 Alicia Romero RN RN ms18 Carmen Espino MD MD fg Denice Rojo RN RN kc3 Atiya Joyce James js The chart was reviewed and I authenticate all verbal orders and agree with the evaluation and treatment provided.Attachments: 11:29 [facility] Payment Agreement mm15 17:30 T-Sheet-- Draft Copy sarah Chart Complete MTDD
--- NOTE | 2016-06-24 15:14 | EDDOCDS ---
Physician Documentation Name: Akbar Ulloa Age: 51 yrs Sex: Male : 1965 Arrival Date: 06/21/2016 Time: 10:56 Bed TR7 Private MD: Disposition: 06/21/16 13:04 Patient has left against medical advice. Impression: Chest pain, unspecified. - Patients states they are going to Home/Self Care. - Condition is Good. Medication Reconciliation, Local Pharmacy Hours form. Follow up: Private Physician; When: Call to arrange an appointment; Reason: Continuance of care. - Problem is an ongoing problem. - Symptoms are unchanged. Historical: - Allergies: no known allergies; - Home Meds: 1. metformin 1,000 mg Oral tr24 1 tab twice a day 2. lisinopril 5 mg Oral tab once daily 3. prednisone 20 mg Oral tab 1 tab 3 times per day pt has not picked up perscription yet. 4. Seroquel 400 mg Oral tab 5. trazodone 300 mg Oral tab 1 tab - PMHx: Bipolar disorder; Diabetes - NIDDM: controlled; Schizophrenia; - PSHx: finger surgery; - Social history: Smoking status: Patient uses tobacco products, light tobacco smoker. No barriers to communication noted, The patient speaks fluent German. - : The pt / caregiver states he / she is not on anticoagulants. Home medication list is obtained from the patient. - Exposure Risk Screening:: None identified. Vital Signs: 06/21 11:15 BP 143 / 97 (auto/); kc3 11:17 BP 147 / 97 LA Sitting (auto/lg); Pulse 98; Resp 18; Temp 97.5; Pulse Ox 96% on R/A; jrd Weight 145.6 kg / 320.99 lbs; Height 6 ft. 2 in. (187.96 cm); Pain 8/10; 11:17 Pulse 98 MON; Pulse Ox 95% ; kc3 11:32 BP 171 / 94 (auto/); kc3 11:33 Pulse 102 MON; Pulse Ox 96% ; kc3 12:02 BP 152 / 80 (auto/); kc3 12:03 Pulse 98 MON; Pulse Ox 97% ; kc3 11:17 Body Mass Index 41.21 (145.60 kg, 187.96 cm) jrd MDM: 10:58 Aspirin Chewable Tablet 324 mg PO once ordered. fg 10:58 Director Physical/Pulse Ox/q 30 min VS ordered. fg 10:58 IV Saline Lock ordered. fg 10:58 Rhythm Strip to chart ordered. fg 10:58 Undress patient appropriately for examination ordered. fg 10:59 B-Type Natiuretic Peptide Ordered. EDMS 10:59 Basic Metabolic Profile Ordered. EDMS 10:59 CBC with Diff Ordered. EDMS 10:59 Cardiac Injury Profile Ordered. EDMS 10:59 Prothrombin Time Profile\E\INR Ordered. EDMS 10:59 Troponin Ordered. EDMS 10:59 ECG WITH READING ER PHYS+CARDIAG ordered. EDMS 11:00 portable chest Ordered. EDMS 11:05 Urine Toxicology Ordered. EDMS 11:26 Financial registration complete. mm15 11:28 Aspirin Chewable Tablet 324 mg PO once ordered. ms18 11:29 [facility] Payment Agreement was scanned into [employer] and attached to record. mm15 11:52 Albuterol-Ipratropium 3 ml Inhalation once ordered. fg 11:52 Call Respiratory ordered. fg 11:52 Solu-MEDROL 125 mg IVP once ordered. fg 11:58 Call Respiratory complete. kc3 17:30 T-Sheet-- Draft Copy was scanned into [employer] and attached to record. klr 06/22 20:05 Trend VS was scanned into [employer] and attached to record. kf3 20:05 Refusal of Services was scanned into [employer] and attached to record. kf3 Administered Medications: 06/21 11:13 Not Given (Duplicate Order): Aspirin Chewable Tablet 324 mg PO once rs3 11:35 Drug: Aspirin 324 mg [aspirin 81 mg chewable tablet (4 tabs)] Route: PO; ms18 12:09 Drug: Albuterol-Ipratropium 3 ml [ipratropium-albuterol 0.5 mg-3 mg(2.5 mg base)/3 mL js nebulization soln (3 mL)] Route: Inhalation; 12:11 Drug: Solu-MEDROL 125 mg [Solu-Medrol 500 mg intravenous solution (125 mg)] Route: IVP; kc3 Site: left hand; Signatures: Dispatcher [employer] EDMS Dano Alcala, Reg Reg kf3 Paulina Lewis RN RN rs3 Caitlin Russo mm15 Alicia Romero RN RN ms18 Carmen Espino MD MD fg Denice Rojo RN RN kc3 Atiya Joyce James js The chart was reviewed and I authenticate all verbal orders and agree with the evaluation and treatment provided.Attachments: 11:29 [facility] Payment Agreement mm15 17:30 T-Sheet-- Draft Copy sarah Chart Complete MTDD
--- NOTE | 2016-06-24 15:14 | EDDOCDS ---
Physician Documentation [facility] Name: Akbar Ulloa Age: 51 yrs Sex: Male : 1965 Arrival Date: 06/21/2016 Time: 10:56 Bed TR7 Private MD: Disposition: 06/21/16 13:04 Patient has left against medical advice. Impression: Chest pain, unspecified. - Patients states they are going to Home/Self Care. - Condition is Good. Medication Reconciliation, Local Pharmacy Hours form. Follow up: Private Physician; When: Call to arrange an appointment; Reason: Continuance of care. - Problem is an ongoing problem. - Symptoms are unchanged. Historical: - Allergies: no known allergies; - Home Meds: 1. metformin 1,000 mg Oral tr24 1 tab twice a day 2. lisinopril 5 mg Oral tab once daily 3. prednisone 20 mg Oral tab 1 tab 3 times per day pt has not picked up perscription yet. 4. Seroquel 400 mg Oral tab 5. trazodone 300 mg Oral tab 1 tab - PMHx: Bipolar disorder; Diabetes - NIDDM: controlled; Schizophrenia; - PSHx: finger surgery; - Social history: Smoking status: Patient uses tobacco products, light tobacco smoker. No barriers to communication noted, The patient speaks fluent Nepali. - : The pt / caregiver states he / she is not on anticoagulants. Home medication list is obtained from the patient. - Exposure Risk Screening:: None identified. Vital Signs: 06/21 11:15 BP 143 / 97 (auto/); kc3 11:17 BP 147 / 97 LA Sitting (auto/lg); Pulse 98; Resp 18; Temp 97.5; Pulse Ox 96% on R/A; jrd Weight 145.6 kg / 320.99 lbs; Height 6 ft. 2 in. (187.96 cm); Pain 8/10; 11:17 Pulse 98 MON; Pulse Ox 95% ; kc3 11:32 BP 171 / 94 (auto/); kc3 11:33 Pulse 102 MON; Pulse Ox 96% ; kc3 12:02 BP 152 / 80 (auto/); kc3 12:03 Pulse 98 MON; Pulse Ox 97% ; kc3 11:17 Body Mass Index 41.21 (145.60 kg, 187.96 cm) jrd MDM: 10:58 Aspirin Chewable Tablet 324 mg PO once ordered. fg 10:58 Beer Runner/Pulse Ox/q 30 min VS ordered. fg 10:58 IV Saline Lock ordered. fg 10:58 Rhythm Strip to chart ordered. fg 10:58 Undress patient appropriately for examination ordered. fg 10:59 B-Type Natiuretic Peptide Ordered. EDMS 10:59 Basic Metabolic Profile Ordered. EDMS 10:59 CBC with Diff Ordered. EDMS 10:59 Cardiac Injury Profile Ordered. EDMS 10:59 Prothrombin Time Profile\E\INR Ordered. EDMS 10:59 Troponin Ordered. EDMS 10:59 ECG WITH READING ER PHYS+CARDIAG ordered. EDMS 11:00 portable chest Ordered. EDMS 11:05 Urine Toxicology Ordered. EDMS 11:26 Financial registration complete. mm15 11:28 Aspirin Chewable Tablet 324 mg PO once ordered. ms18 11:29 [facility] Payment Agreement was scanned into [employer] and attached to record. mm15 11:52 Albuterol-Ipratropium 3 ml Inhalation once ordered. fg 11:52 Call Respiratory ordered. fg 11:52 Solu-MEDROL 125 mg IVP once ordered. fg 11:58 Call Respiratory complete. kc3 17:30 T-Sheet-- Draft Copy was scanned into [employer] and attached to record. klr 06/22 20:05 Trend VS was scanned into [employer] and attached to record. kf3 20:05 Refusal of Services was scanned into [employer] and attached to record. kf3 Administered Medications: 06/21 11:13 Not Given (Duplicate Order): Aspirin Chewable Tablet 324 mg PO once rs3 11:35 Drug: Aspirin 324 mg [aspirin 81 mg chewable tablet (4 tabs)] Route: PO; ms18 12:09 Drug: Albuterol-Ipratropium 3 ml [ipratropium-albuterol 0.5 mg-3 mg(2.5 mg base)/3 mL js nebulization soln (3 mL)] Route: Inhalation; 12:11 Drug: Solu-MEDROL 125 mg [Solu-Medrol 500 mg intravenous solution (125 mg)] Route: IVP; kc3 Site: left hand; Signatures: Dispatcher [employer] EDMS Dano Alcala, Reg Reg kf3 Paulina Lewis RN RN rs3 Caitlin Russo mm15 Alicia Romero RN RN ms18 Carmen Espino MD MD fg Denice Rojo RN RN kc3 Atiya Joyce James js The chart was reviewed and I authenticate all verbal orders and agree with the evaluation and treatment provided.Attachments: 11:29 [facility] Payment Agreement mm15 17:30 T-Sheet-- Draft Copy sarah Chart Complete MTDD
--- NOTE | 2016-06-24 15:14 | EDDOCDS ---
Nurse's Notes [facility] Name: Akbar Flores Age: 51 yrs Sex: Male : 1965 Arrival Date: 06/21/2016 Time: 10:56 Bed TR7 Private MD: Diagnosis: Chest pain, unspecified Presentation: 06/21 11:04 Presenting complaint: EMS states: chest pain that began 2 days prior with no nausea and kc3 sob reported. Aspirin was taken MAIL AGENT. Adult Sepsis Screening: Suicide/Homicide risk assessment- the patient denies having any suicidal and/or homicidal ideations and does not present with any other emotional, behavioral or mental health complaints. 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 Transition of care: patient was not received from another setting of care. 11:04 Acuity: ELSA Level 3 kc3 11:04 Method Of Arrival: Ambulance kc3 11:10 Adult Sepsis Screening: Patient's respiratory rate is less than 22. Systolic blood rs3 pressure is greater than 100. Patient has a qSOFA score of 0- Negative Sepsis Screen. Triage Assessment: 11:11 General: Appears in no apparent distress. Pain: Location: chest. HIV screening NA for rs3 this visit Offered previously. Cardiovascular: Chest pain is described as Pain is 4 out of 10 on a pain scale. radiates Does not radiate. episodes are intermittent began 1 hour prior to arrival. Historical: - Allergies: no known allergies; - Home Meds: 1. metformin 1,000 mg Oral tr24 1 tab twice a day 2. lisinopril 5 mg Oral tab once daily 3. prednisone 20 mg Oral tab 1 tab 3 times per day pt has not picked up perscription yet. 4. Seroquel 400 mg Oral tab 5. trazodone 300 mg Oral tab 1 tab - PMHx: Bipolar disorder; Diabetes - NIDDM: controlled; Schizophrenia; - PSHx: finger surgery; - Social history: Smoking status: Patient uses tobacco products, light tobacco smoker. No barriers to communication noted, The patient speaks fluent Guamanian. - : The pt / caregiver states he / she is not on anticoagulants. Home medication list is obtained from the patient. - Exposure Risk Screening:: None identified. Screenin:12 Screening information is obtained from the patient. Fall risk: No risks identified. rs3 Assistance ADL's: requires no assistance with activities of daily living. Abuse/DV Screen: The patient / caregiver reports he/she is: not in a situation that causes fear, pain or injury. Nutritional screening: No deficits noted. Advance Directives: Currently, there is no health care proxy. home support is adequate. Assessment: 11:12 General: Appears in no apparent distress, Behavior is appropriate for age, cooperative. rs3 Pain: Location: chest. Cardiovascular: Rhythm is regular. Derm: Skin is pink, warm & dry. 11:28 General: PT states that he did not take aspirin prior to arrival. ms18 12:12 General: Appears in no apparent distress, comfortable, Behavior is appropriate for age, kc3 cooperative. Pain: Location: chest Pain currently is 8 out of 10 on a pain scale. Neurological: Level of Consciousness is awake, alert, obeys commands, Oriented to person, place, time. Cardiovascular: Rhythm is sinus rhythm Chest pain radiates Does not radiate. Respiratory: Airway is patent Respiratory effort is even, unlabored, Respiratory pattern is regular, symmetrical, Breath sounds are diminished bilaterally. Derm: Skin is pink, warm & dry. 13:10 General: This RN found pt outside with EKG lead wiring still attached to pt and IV kc3 still in place. Pt informed not allowed to leave. Pt reported would like to leave AMA. Dr. Espino and credit charge authorizer aware. IV discontinued. Pt informed of risks and benefits to leaving AMA. AMA form signed. . Social Work Consult: 16:14 LWBS/AMA AMA: Patient is refusing further stabilizing treatment at [facility], although ml4 offered treatment regardless of method of payment or ability to pay. Patient is aware that this action is being undertaken against the advice of the medical staff at [facility]. Pt. has capacity to understand the potential consequences of this choice. pt did not notify ED staff. Patient / Guardian did not sign a Refusal of Services form. Pt left before being seen by PSA. Vital Signs: 11:15 BP 143 / 97 (auto/); kc3 11:17 BP 147 / 97 LA Sitting (auto/lg); Pulse 98; Resp 18; Temp 97.5; Pulse Ox 96% on R/A; jrd Weight 145.6 kg; Height 6 ft. 2 in. (187.96 cm); Pain 8/10; 11:17 Pulse 98 MON; Pulse Ox 95% ; kc3 11:32 BP 171 / 94 (auto/); kc3 11:33 Pulse 102 MON; Pulse Ox 96% ; kc3 12:02 BP 152 / 80 (auto/); kc3 12:03 Pulse 98 MON; Pulse Ox 97% ; kc3 11:17 Body Mass Index 41.21 (145.60 kg, 187.96 cm) jrd Vitals: 11:12 Log In Time N/A - ambulance arrival. rs3 ED Course: 10:57 Patient visited by Heydi Wilcox, [employer] Salesperson. deg 10:57 Denice Rojo,RN is Primary Nurse. deg 10:57 Patient moved to Waiting deg 10:57 Patient moved to 17 deg 10:58 Carmen Espino MD is Attending Physician. fg 10:58 Patient visited by Carmen Espino MD. fg 11:03 EKG done. (by ED staff). Reviewed by Carmen Espino MD. jrd 11:09 Patient visited by Rusty Humphries PCA. jrd 11:09 Triage Initiated kc3 11:10 Patient visited by Rusty Humphries PCA. jrd 11:17 Pt greeted and oriented to ED. Patient advised of names of staff involved in care, jrd location of call gallo, wait times and NPO status. Patient has correct armband on for positive identification. Placed in gown. Bed in low position. Call light in reach. Side rails up X2. sales professional on. Pulse ox on. NIBP on. 11:26 B-Type Natiuretic Peptide Sent. ms18 11:26 Basic Metabolic Profile Sent. ms18 11:26 CBC with Diff Sent. ms18 11:26 Cardiac Injury Profile Sent. ms18 11:26 Prothrombin Time Profile\E\INR Sent. ms18 11:26 Troponin Sent. ms18 11:29 [facility] Payment Agreement was scanned into [employer] and attached to record. mm15 11:35 Patient visited by Alicia Romero RN. ms18 11:35 Urine Toxicology Sent. ms18 12:11 Patient visited by Denice Rojo,EDWARD. kc3 12:30 Inserted saline lock: 20 gauge in right hand and blood collected. The patient tolerated kc3 the procedure well. placed by Alicia Romero RN. 13:10 Discontinued IV lock intact, bleeding controlled, pressure dressing applied, No kc3 redness/swelling at site. 13:19 Patient moved to TR7 dls 17:30 T-Sheet-- Draft Copy was scanned into [employer] and attached to record. klr 06/22 16:03 EKG-ADULT Returned. EDMS 20:05 Trend VS was scanned into [employer] and attached to record. kf3 20:05 Refusal of Services was scanned into [employer] and attached to record. kf3 06/23 08:50 portable chest Returned. EDMS Administered Medications: 06/21 11:13 Not Given (Duplicate Order): Aspirin Chewable Tablet 324 mg PO once rs3 11:35 Drug: Aspirin 324 mg [aspirin 81 mg chewable tablet (4 tabs)] Route: PO; ms18 12:09 Drug: Albuterol-Ipratropium 3 ml [ipratropium-albuterol 0.5 mg-3 mg(2.5 mg base)/3 mL js nebulization soln (3 mL)] Route: Inhalation; 12:11 Drug: Solu-MEDROL 125 mg [Solu-Medrol 500 mg intravenous solution (125 mg)] Route: IVP; kc3 Site: left hand; Attachments: 06/22 20:05 Trend VS kf3 20:05 Refusal of Services kf3 RT: 06/21 12:09 Initial Med Neb Given as ordered Patient was instructed and evaluated on procedure js Patient tolerated procedure well without adverse effect. Respiratory: Breath sounds are diminished bilaterally. Order Results: Lab Order: B-Type Natiuretic Peptide; SPEC'M 06/21/16 11:23 Test: BRAIN NATRIURETIC PEPTIDE; Value: < 5.0; Range: <100; Units: PG/ML; Status: F Lab Order: Basic Metabolic Profile; SPEC'M 06/21/16 11:23 Test: GLUCOSE, FASTING; Value: 248; Range: 70-105; Abnormal: Above high normal; Units: MG/DL; Status: F Test: BLOOD UREA NITROGEN; Value: 15; Range: 7-18; Units: MG/DL; Status: F Test: CREATININE FOR GFR; Value: 1.46; Range: 0.70-1.30; Abnormal: Above high normal; Units: MG/DL; Status: F Test: GLOMERULAR FILTRATION RATE; Value: > 60.0; Range: >56; Status: F Test: SODIUM LEVEL; Value: 136; Range: 136-145; Units: MEQ/L; Status: F Test: POTASSIUM SERUM; Value: 4.1; Range: 3.5-5.1; Units: MEQ/L; Status: F Test: CHLORIDE LEVEL; Value: 100; Range: 98-107; Units: MEQ/L; Status: F Test: CARBON DIOXIDE LEVEL; Value: 26; Range: 21-32; Units: MEQ/L; Status: F Test: ANION GAP; Value: 10; Range: 8-16; Units: MEQ/L; Status: F Test: CALCIUM LEVEL; Value: 8.8; Range: 8.5-10.1; Units: MG/DL; Status: F Test Note: ; Units are mL/min/1.73 m2 Chronic Kidney Disease Staging per NKF: Stage I & II GFR >=60 Normal to Mildly Decreased Stage III GFR 30-59 Moderately Decreased Stage IV GFR 15-29 Severely Decreased Stage V GFR <15 Very Little GFR Left ESRD GFR <15 on CAN FILLING AND CLOSING MACHINE TENDER Lab Order: CBC with Diff; SPEC'M 06/21/16 11:23 Test: WHITE BLOOD COUNT; Value: 9.6; Range: 4.0-10.0; Units: K/mm3; Status: F Test: RED BLOOD COUNT; Value: 5.09; Range: 4.30-6.10; Units: M/mm3; Status: F Test: HEMOGLOBIN; Value: 14.6; Range: 14.0-18.0; Units: g/dl; Status: F Test: HEMATOCRIT; Value: 42.4; Range: 42.0-52.0; Units: %; Status: F Test: MEAN CORPUSCULAR VOLUME; Value: 83.4; Range: 80.0-96.0; Units: fl; Status: F Test: MEAN CORPUSCULAR HEMOGLOBIN; Value: 28.8; Range: 27.0-33.0; Units: pg; Status: F Test: MEAN CORPUSCULAR HGB CONC; Value: 34.5; Range: 32.0-36.5; Units: g/dl; Status: F Test: RED CELL DISTRIBUTION WIDTH; Value: 12.9; Range: 11.5-14.5; Units: %; Status: F Test: PLATELET COUNT, AUTOMATED; Value: 206; Range: 150-450; Units: k/mm3; Status: F Test: NEUTROPHILS %; Value: 66.1; Range: 36.0-66.0; Abnormal: Above high normal; Units: %; Status: F Test: LYMPH %; Value: 25.5; Range: 24.0-44.0; Units: %; Status: F Test: MONO %; Value: 5.4; Range: 0.0-5.0; Abnormal: Above high normal; Units: %; Status: F Test: EOS %; Value: 0.6; Range: 0.0-3.0; Units: %; Status: F Test: BASO %; Value: 0.2; Range: 0.0-1.0; Units: %; Status: F Test: LARGE UNSTAINED CELL %; Value: 2.1; Range: 0.0-4.0; Units: %; Status: F Test: NEUTROPHILS #; Value: 6.4; Range: 1.8-7.7; Units: K/mm3; Status: F Test: LYMPH #; Value: 2.5; Range: 1.5-4.5; Units: K/mm3; Status: F Test: MONO #; Value: 0.5; Range: 0.0-0.8; Units: K/mm3; Status: F Test: EOS #; Value: 0.1; Range: 0.0-0.50; Units: K/mm3; Status: F Test: BASO #; Value: 0.0; Range: 0.0-0.2; Units: K/mm3; Status: F Test: LARGE UNSTAINED CELL #; Value: 0.2; Range: 0.0-0.4; Units: K/mm3; Status: F Lab Order: Cardiac Injury Profile; SPEC'M 06/21/16 11:23 Test: CPK CREATINE PHOSPHOKINASE; Value: 793; Range: 39-308; Abnormal: Above high normal; Units: U/L; Status: F Test: CK-MB VALUE MASS; Value: 3.4; Range: 0.0-3.6; Units: NG/ML; Status: F Test: MB/CK RELATIVE INDEX; Value: 0.42; Range: < OR =4; Status: F Test Note: ; DIAGNOSIS CRITERIA MMB ng/ml Relative Index (RI) NON-AMI < or = 5 N/A FARRIS ZONE > 5 < or = 4 AMI > 5 > 4 Lab Order: Prothrombin Time Profile\E\INR; SPEC'M 06/21/16 11:23 Test: PROTHROMBIN TIME; Value: 13.5; Range: 12.3-14.5; Units: SECONDS; Status: F Test: INR; Value: 1.02; Status: F Test Note: ; THERAPUTIC HUMAN INR VALUES INDICATIONS NORMAL RANGES PROPHYLAXIS/TREATMENT OF: VENOUS THROMBOSIS 2.0-3.0 PULMONARY EMBOLISM 2.0-3.0 PREVENTION OF SYSTEMIC EMBOLISM FROM: TISSUE HEART VALVES 2.0-3.0 ACUTE MYOCARDIAL INFARCTION 2.0-3.0 VALVULAR HEART DISEASE 2.0-3.0 ATRIAL FIBRILLATION 2.0-3.0 MECHANICAL VALVES(HIGH RISK) 2.5-3.5 RECURRENT MYOCARDIAL INFARCTION 2.5-3.5 Lab Order: Troponin; SPEC'M 06/21/16 11:23 Test: TROPONIN I; Value: < 0.02; Range: < 0.10; Units: NG/ML; Status: F Test Note: ; Troponin I Reference Interval for [employer] [place] LOCI: 99th Percentile= 0.00-0.045 ng/ml Risk Stratification: <= 0.10 ng/ml Decreased Risk for Adverse Clinical Events. 0.10-1.50 ng/ml Increased Risk for Adverse Clinical Events. Evaluation of additional criterion and/or repeat testing in 2-6 hours is suggested to rule out myocardial damage. >= 1.50 ng/ml Indicative of Myocardial Injury. Lab Order: Urine Toxicology; SPEC'M 06/21/16 11:26 Test: AMPHETAMINES LEVEL URINE; Value: NEGATIVE; Range: NEGATIVE; Status: F Test: BARBITURATES URINE; Value: NEGATIVE; Range: NEGATIVE; Status: F Test: BENZODIAZEPINES URINE; Value: NEGATIVE; Range: NEGATIVE; Status: F Test: CANNABINOIDS URINE; Value: NEGATIVE; Range: NEGATIVE; Status: F Test: COCAINE METABOLITE URINE; Value: NEGATIVE; Range: NEGATIVE; Status: F Test: METHADONE URINE; Value: NEGATIVE; Range: NEGATIVE; Status: F Test: OPIATES URINE; Value: NEGATIVE; Range: NEGATIVE; Status: F Test: TRICYCLIC ANTIDEPRESS URINE; Value: NEGATIVE; Range: NEGATIVE; Status: F Test Note: ; ALL PRESUMPTIVE POSITIVE FINDINGS ARE UNCONFIRMED NORMAL VALUES THRESHOLD IN NG/ML AMPHETAMINES 1000 METHAMPHETAMINES 1000 BARBITURATES 300 BENZODIAZEPINES 300 CANNABINOIDS (THC) 50 COCAINE METABOLITE 300 METHADONE 300 OPIATES 300 PHENCYCLIDINE 25 TRICYCLIC ANTIDEPRESSANTS 1000 RESULTS ARE FOR MEDICAL PURPOSES ONLY. ALL URINE SPECIMENS WILL BE SAVED FOR 3 DAYS. IF CONFIRMATION OF A PRESUMPTIVE POSTIVE SCREEN RESULT IS DESIRED, CALL CHEMISTRY ([phone]) AND REQUEST URINE TO BE SENT TO REFERENCE LAB. FOR A LIST OF CLOSELY RELATED COMPOUNDS PLEASE CALL THE LAB. Radiology Order: portable chest Test: portable chest REASON FOR EXAMINATION: Chest Pain; Portable chest, single AP view, patient sitting:; ; Comparisons are the portable chest of 06/20/2016 and PA and lateral chest of; 08/29/2015.; ; The focal zones of discoid atelectasis noted on 2016 inferiorly in the; right lung have resolved.; ; Lung malhotra are clear. Cardiac size is magnified by portable positioning. The; christine, mediastinum, and bony thorax are unremarkable.; ; Impression:; ; No acute cardiopulmonary findings. 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 13:04 Patient left against medical advice. fg 13:58 Patient left the ED. [facility] Signatures: Dispatcher [employer] EDMS Heydi Wilcox, [employer] Salesperson Unit deg Amanda Carpenter, RN RN dls Alonzo,Nahid js Vamshi, Debo, PSA PSA ml4 Dano Alcala, Reg Reg kf3 Paulina Lewis RN RN rs3 Caitlin Russo mm15 Alicia Romero RN RN ms18 Rusty Humphries, RUBY [employer] RAILS CONSULTANT RUBY [employer] RAILS CONSULTANT Carmen Davis MD MD fg Denice Rojo RN RN kc3 Atiya Joyce Corrections: (The following items were deleted from the chart) 11:10 11:09 EKG done. (by ED staff). Reviewed by Carmen Espino MD jrd jrd Chart Complete MTDD
== END 2016-06-21 13:58 | disposition left against medical advice (07) ==
LOC: M ED 10:56
DX: R07.9 Chest pain, unspecified (principal); E11.9 Type 2 diabetes mellitus without complications; F31.9 Bipolar disorder, unspecified; F20.9 Schizophrenia, unspecified; F17.200 Nicotine dependence, unspecified, uncomplicated; Z79.84 Long term (current) use of oral hypoglycemic drugs; Z79.899 Other long term (current) drug therapy; Z79.52 Long term (current) use of systemic steroids
CPT/HCPCS: 36415; 71010; 80048; 80306; 82550; 82553; 83880; 85025; 85610; 93005; 93041; 94640; 96374; 99284; J2930

== ENCOUNTER 2016-06-27 16:06 | Emergency (ER) | payer OTHER ==
[2016-06-27] MEDS ORDERED: LIDOCAINE 2% MDV 20 ML VIAL As Ordered ONE (16:33)
[2016-06-27] MEDS ORDERED: ALBUTEROL SULFATE 2.5 MG/0.5 ML INH NEB SOLN As Ordered ONE ×2 (16:56→17:17)
--- NOTE | 2016-06-27 17:45 | REP ---
Chest x-ray: Two views. History: Cough . Comparison study: June 21, 2016 . Findings: The lungs are well inflated and free of infiltrate. The pleural angles are sharp. The heart size is normal. Pulmonary vasculature is not increased. No significant bony abnormality is seen. Impression: Negative chest x-ray. Signed by Bebeto Garcia MD 06/27/2016 05:37 P
[2016-06-27] MEDS ORDERED: predniSONE 20 MG TAB As Ordered ONE (17:49)
[2016-06-27] MEDS ORDERED: DOXYCYCLINE HYCLATE 100 MG TAB As Ordered ONE (17:49)
--- NOTE | 2016-06-27 18:12 | EDDOCDS ---
Nurse's Notes [facility] Name: Akbar Ulloa Age: 51 yrs Sex: Male : 1965 Arrival Date: 06/27/2016 Time: 16:06 Bed PR Private MD: Jayden Raines Diagnosis: Acute bronchitis Presentation: 06/27 16:11 Presenting complaint: Patient states: that his whole body is sore and he has a sore ms18 throat. Pt also reports coughing up green/yellow phlegm. Risk factors: Stridor is not present. Drooling is not present. Shortness of breath is not present. Cellulitis is not present. Adult Sepsis Screening: The patient does not have new or worsening altered mentation. Patient's respiratory rate is less than 22. Systolic blood pressure is greater than 100. Patient has a qSOFA score of 1- Negative Sepsis Screen. Suicide/Homicide risk assessment- the patient denies having any suicidal and/or homicidal ideations and does not present with any other emotional, behavioral or mental health complaints. Status: Patient is not a technical service specialist or dependent. Transition of care: patient was not received from another setting of care. 16:11 Acuity: ELSA Level 3 ms18 16:11 Method Of Arrival: Walkin/Carried/Asstd ms18 Triage Assessment: 16:14 General: Appears in no apparent distress, obese, Behavior is appropriate for age, ms18 cooperative. Pain: Location: "all over" Pain currently is 8 out of 10 on a pain scale. HIV screening NA for this visit Offered previously. Neurological: Level of Consciousness is awake, alert, obeys commands, Oriented to person, place, time. EENT: Reports sore throat. Respiratory: Airway is patent Respiratory effort is even, unlabored, Reports cough that is productive. Derm: Skin is pink, warm & dry. normal. Historical: - Allergies: no known allergies; - Home Meds: 1. lisinopril 5 mg Oral tab once daily 2. metformin 1,000 mg Oral tr24 1 tab twice a day (Last dose: 06/26/2016) 3. prednisone 20 mg Oral tab 1 tab 3 times per day pt has not picked up perscription yet. 4. Seroquel 400 mg Oral tab 5. trazodone 300 mg Oral tab 1 tab - PMHx: Bipolar disorder; Diabetes - NIDDM: controlled; Schizophrenia; - PSHx: none; - Social history: Smoking status: Patient uses tobacco products, current every day smoker. No barriers to communication noted, The patient speaks fluent Scottish. - Family history: Not pertinent. - : The pt / caregiver states he / she is not on anticoagulants. Home medication list is obtained from the patient. - Exposure Risk Screening:: None identified. Screenin:58 Screening information is obtained from the patient. Fall risk: No risks identified. ttb Assistance ADL's: requires no assistance with activities of daily living. Abuse/DV Screen: The patient / caregiver reports he/she is: not in a situation that causes fear, pain or injury. Nutritional screening: No deficits noted. Advance Directives: Currently, there is no health care proxy. home support is adequate. Assessment: 17:58 General: Appears in no apparent distress, well nourished, Behavior is appropriate for ttb age, cooperative, pleasant. Pain: Denies pain. Neurological: Level of Consciousness is awake, alert. Cardiovascular: Chest pain is denied. Respiratory: Airway is patent Respiratory effort is even, unlabored, Respiratory pattern is regular, symmetrical, Reports shortness of breath on exertion cough that is the patient has mild shortness of breath Denies labored breathing. GI: Denies nausea, vomiting, pain. Derm: Skin is normal. 18:00 Reassessment: Patient appears in no apparent distress at this time. Patient denies pain ttb at this time. Patient states feeling better. Patient states symptoms have improved. pt requests medicaid cab home, secured.. Vital Signs: 16:10 BP 163 / 92 RA Sitting (auto/lg); Pulse 112; Resp 18; Temp 98.0(T); Pulse Ox 100% on rs6 R/A; Weight 145.6 kg (R); Height 6 ft. 2 in. (187.96 cm) (R); Pain 8/10; 16:10 Body Mass Index 41.21 (145.60 kg, 187.96 cm) rs6 Vitals: 16:10 Log In Time: June 27, 2016 at 16:10. 6 ED Course: 16:09 Patient visited by Krista Clements PCA. rs6 16:09 Patient moved to Waiting rs6 16:10 Jayden Raines is Private Physician. rs6 16:11 Patient visited by Krista Clements PCA. rs6 16:11 Patient moved to Pre RCE rs6 16:13 Triage Initiated ms18 16:34 Patient moved to Triage 3 ms18 16:35 [facility] dk1 16:35 Reji Simons MD is Attending Physician. dk1 16:39 Patient visited by Brian Ruvalcaba PA-C. dk1 16:52 Patient moved to PR2 / 26 ttb 17:38 Patient visited by Noemi Oropeza PCA. jb5 17:58 [facility] Payment Agreement was scanned into [employer] and attached to record. jp5 17:58 The patient / caregiver is instructed regarding the plan of care and ED course. Patient ttb has correct armband on for positive identification. 17:58 No IV's were initiated during this patient's visit. No procedures done that require ttb assistance. 17:59 Chest, 2 View (pa\\E\\lat) Returned. EDMS Administered Medications: 17:04 Drug: Albuterol 5 mg [albuterol sulfate 2.5 mg/0.5 mL solution for nebulization (1 mL)] cs15 Route: Nebulizer; 17:10 Drug: Albuterol 2.5 mg [albuterol sulfate 2.5 mg/0.5 mL solution for nebulization (0.5 cs15 mL)] Route: Nebulizer; 17:58 Drug: Doxycycline 100 mg [doxycycline hyclate 100 mg tablet (1 tabs)] Route: PO; ttb 17:58 Drug: predniSONE 40 mg [prednisone 20 mg tablet (2 tabs)] Route: PO; ttb RT: 17:04 Initial Med Neb Given as ordered. Pre Peak Flow: 150. Respiratory: Respiratory effort cs15 is unlabored, Respiratory pattern is regular Breath sounds with wheezes bilaterally. at expiration. 17:17 Post Peak Flow: 180. cs15 17:28 Post Peak Flow: 260. cs15 Order Results: Radiology Order: Chest, 2 View (pa\\E\\lat) Test: Chest, 2 View (pa\\E\\lat) REASON FOR EXAMINATION: Cough; Chest x-ray: Two views.; ; History: Cough .; ; Comparison study: June 21, 2016 .; ; Findings: The lungs are well inflated and free of infiltrate. The pleural; angles are sharp. The heart size is normal. Pulmonary vasculature is not; increased. No significant bony abnormality is seen.; ; Impression:; ; Negative chest x-ray.; ; ; Signed by; Bebeto Garcia MD 06/27/2016 05:37 P; Outcome: 17:45 Discharge ordered by Provider. dk1 17:58 Discharge Assessment: Patient awake, alert and oriented x 3. No cognitive and/or ttb functional deficits noted. Patient verbalized understanding of disposition instructions. Patient awake and alert. patient administered narcotics - no. The following High Risk Discharge criteria are identified: None. Discharged to home ambulatory. Condition: good Condition: stable Condition: improved. Discharge instructions given to patient, Instructed on discharge instructions, follow up and referral plans. medication usage, Demonstrated understanding of instructions, medications, Pt was receptive of discharge instructions/ teaching. Prescriptions given X 2. No special radiology studies were completed. Property :Personal belongings accompany Pt. 18:11 Patient left the ED. ttb Signatures: Dispatcher [employer] EDMS Noemi Oropeza, PSYCHODRAMATIST PSYCHODRAMATIST jb5 Brian Ruvalcaba, PARajan PA-C dk1 Charmaine Chou, RN RN ttb Alicia Romero,EDWARD RN ms18 Krista Clements, PSYCHODRAMATIST PSYCHODRAMATIST rs6 Jluis Gabriel jp5 Ismael Wagner,RT RT cs15 MTDD
--- NOTE | 2016-06-27 18:12 | EDDOCDS ---
Physician Documentation [facility] Name: Akbar Ulloa Age: 51 yrs Sex: Male : 1965 Arrival Date: 06/27/2016 Time: 16:06 Bed PR Private MD: Jayden Raines Disposition: 06/27/16 17:45 Discharged to Home/Self Care. Impression: Acute bronchitis. - Condition is Stable. - Discharge Instructions: Acute Bronchitis. - Prescriptions for Prednisone 20 mg Oral Tablet - take 2 tablet by ORAL route once daily for 5 days; 10 tablet. Doxycycline Monohydrate 100 mg Oral Tablet - take 1 tablet by ORAL route every 12 hours for 10 days; 20 tablet. - Medication Reconciliation, Local Pharmacy Hours form. - Follow up: Emergency Department; When: Tomorrow; Reason: Recheck today's complaints. - Problem is new. - Symptoms are unchanged. Historical: - Allergies: no known allergies; - Home Meds: 1. lisinopril 5 mg Oral tab once daily 2. metformin 1,000 mg Oral tr24 1 tab twice a day (Last dose: 06/26/2016) 3. prednisone 20 mg Oral tab 1 tab 3 times per day pt has not picked up perscription yet. 4. Seroquel 400 mg Oral tab 5. trazodone 300 mg Oral tab 1 tab - PMHx: Bipolar disorder; Diabetes - NIDDM: controlled; Schizophrenia; - PSHx: none; - Social history: Smoking status: Patient uses tobacco products, current every day smoker. No barriers to communication noted, The patient speaks fluent Kiswahili. - Family history: Not pertinent. - : The pt / caregiver states he / she is not on anticoagulants. Home medication list is obtained from the patient. - Exposure Risk Screening:: None identified. Vital Signs: 06/27 16:10 BP 163 / 92 RA Sitting (auto/lg); Pulse 112; Resp 18; Temp 98.0(T); Pulse Ox 100% on rs6 R/A; Weight 145.6 kg / 320.99 lbs (R); Height 6 ft. 2 in. (187.96 cm) (R); Pain 8/10; 16:10 Body Mass Index 41.21 (145.60 kg, 187.96 cm) rs6 MDM: 16:48 Albuterol 5 mg Nebulizer once ordered. dk1 16:50 Chest, 2 View (pa\E\lat) Ordered. EDMS 16:52 Peak Flow Pre & Post ordered. dk1 16:55 Peak Flow Pre & Post complete. jb5 17:13 Albuterol 2.5 mg Nebulizer once x3 ordered. dk1 17:46 Doxycycline 100 mg PO once ordered. dk1 17:47 predniSONE 40 mg PO once; administer with food or milk ordered. dk1 17:58 [facility] Payment Agreement was scanned into [email or web address] and attached to record. jp5 17:58 Financial registration complete. jp5 Administered Medications: 17:04 Drug: Albuterol 5 mg [albuterol sulfate 2.5 mg/0.5 mL solution for nebulization (1 mL)] cs15 Route: Nebulizer; 17:10 Drug: Albuterol 2.5 mg [albuterol sulfate 2.5 mg/0.5 mL solution for nebulization (0.5 cs15 mL)] Route: Nebulizer; 17:58 Drug: Doxycycline 100 mg [doxycycline hyclate 100 mg tablet (1 tabs)] Route: PO; ttb 17:58 Drug: predniSONE 40 mg [prednisone 20 mg tablet (2 tabs)] Route: PO; ttb Signatures: Dispatcher [employer] EDMS Noemi Oropeza, SILVERWARE ETCHER SILVERWARE ETCHER jb5 Brian Ruvalcaba PA-C PAMichaelaC dk1 Charmaine Chou, RN RN ttb Alicia RomeroRN RN ms18 Jluis Gabriel jp5 Ismael Wagner RT cs15 The chart was reviewed and I authenticate all verbal orders and agree with the evaluation and treatment provided.Attachments: 17:58 [facility] Payment Agreement jp5 MTDD
--- NOTE | 2016-06-29 19:12 | EDDOCDS ---
Physician Documentation [facility] Name: Akbar Ulloa Age: 51 yrs Sex: Male : 1965 Arrival Date: 06/27/2016 Time: 16:06 Bed PR Private MD: Jayden Raines Disposition: 06/27/16 17:45 Discharged to Home/Self Care. Impression: Acute bronchitis. - Condition is Stable. - Discharge Instructions: Acute Bronchitis. - Prescriptions for Prednisone 20 mg Oral Tablet - take 2 tablet by ORAL route once daily for 5 days; 10 tablet. Doxycycline Monohydrate 100 mg Oral Tablet - take 1 tablet by ORAL route every 12 hours for 10 days; 20 tablet. - Medication Reconciliation, Local Pharmacy Hours form. - Follow up: Emergency Department; When: Tomorrow; Reason: Recheck today's complaints. - Problem is new. - Symptoms are unchanged. Historical: - Allergies: no known allergies; - Home Meds: 1. lisinopril 5 mg Oral tab once daily 2. metformin 1,000 mg Oral tr24 1 tab twice a day (Last dose: 06/26/2016) 3. prednisone 20 mg Oral tab 1 tab 3 times per day pt has not picked up perscription yet. 4. Seroquel 400 mg Oral tab 5. trazodone 300 mg Oral tab 1 tab - PMHx: Bipolar disorder; Diabetes - NIDDM: controlled; Schizophrenia; - PSHx: none; - Social history: Smoking status: Patient uses tobacco products, current every day smoker. No barriers to communication noted, The patient speaks fluent Japanese. - Family history: Not pertinent. - : The pt / caregiver states he / she is not on anticoagulants. Home medication list is obtained from the patient. - Exposure Risk Screening:: None identified. Vital Signs: 06/27 16:10 BP 163 / 92 RA Sitting (auto/lg); Pulse 112; Resp 18; Temp 98.0(T); Pulse Ox 100% on rs6 R/A; Weight 145.6 kg / 320.99 lbs (R); Height 6 ft. 2 in. (187.96 cm) (R); Pain 8/10; 16:10 Body Mass Index 41.21 (145.60 kg, 187.96 cm) rs6 MDM: 16:48 Albuterol 5 mg Nebulizer once ordered. dk1 16:50 Chest, 2 View (pa\E\lat) Ordered. EDMS 16:52 Peak Flow Pre & Post ordered. dk1 16:55 Peak Flow Pre & Post complete. jb5 17:13 Albuterol 2.5 mg Nebulizer once x3 ordered. dk1 17:46 Doxycycline 100 mg PO once ordered. dk1 17:47 predniSONE 40 mg PO once; administer with food or milk ordered. dk1 17:58 [facility] Payment Agreement was scanned into [employer] and attached to record. jp5 17:58 Financial registration complete. jp5 06/28 10:26 T-Sheet-- Draft Copy was scanned into [employer] and attached to record. mm15 Administered Medications: 06/27 17:04 Drug: Albuterol 5 mg [albuterol sulfate 2.5 mg/0.5 mL solution for nebulization (1 mL)] cs15 Route: Nebulizer; 17:10 Drug: Albuterol 2.5 mg [albuterol sulfate 2.5 mg/0.5 mL solution for nebulization (0.5 cs15 mL)] Route: Nebulizer; 17:58 Drug: Doxycycline 100 mg [doxycycline hyclate 100 mg tablet (1 tabs)] Route: PO; ttb 17:58 Drug: predniSONE 40 mg [prednisone 20 mg tablet (2 tabs)] Route: PO; ttb Signatures: Dispatcher [employer] EDNoemi Hunter, CHARGING PLUG PLACER CHARGING PLUG PLACER jb5 Brian Ruvalcaba PA-C PARajan dk1 Charmaine Chou RN RN ttb Caitlin Russo mm15 Alicia Romero RN RN ms18 Jluis Gabriel jp5 Ismael Wagner RT cs15 The chart was reviewed and I authenticate all verbal orders and agree with the evaluation and treatment provided.Attachments: 17:58 [facility] Payment Agreement jp5 06/28 10:26 T-Sheet-- Draft Copy mm15 Chart Complete MTDD
--- NOTE | 2016-06-29 19:12 | EDDOCDS ---
Nurse's Notes [facility] Name: Akbar Ulloa Age: 51 yrs Sex: Male : 1965 Arrival Date: 06/27/2016 Time: 16:06 Bed PR Private MD: Jayden Raines Diagnosis: Acute bronchitis Presentation: 06/27 16:11 Presenting complaint: Patient states: that his whole body is sore and he has a sore ms18 throat. Pt also reports coughing up green/yellow phlegm. Risk factors: Stridor is not present. Drooling is not present. Shortness of breath is not present. Cellulitis is not present. Adult Sepsis Screening: The patient does not have new or worsening altered mentation. Patient's respiratory rate is less than 22. Systolic blood pressure is greater than 100. Patient has a qSOFA score of 1- Negative Sepsis Screen. Suicide/Homicide risk assessment- the patient denies having any suicidal and/or homicidal ideations and does not present with any other emotional, behavioral or mental health complaints. Status: Patient is not a pharmacy tech customer service or dependent. Transition of care: patient was not received from another setting of care. 16:11 Acuity: ELSA Level 3 ms18 16:11 Method Of Arrival: Walkin/Carried/Asstd ms18 Triage Assessment: 16:14 General: Appears in no apparent distress, obese, Behavior is appropriate for age, ms18 cooperative. Pain: Location: "all over" Pain currently is 8 out of 10 on a pain scale. HIV screening NA for this visit Offered previously. Neurological: Level of Consciousness is awake, alert, obeys commands, Oriented to person, place, time. EENT: Reports sore throat. Respiratory: Airway is patent Respiratory effort is even, unlabored, Reports cough that is productive. Derm: Skin is pink, warm & dry. normal. Historical: - Allergies: no known allergies; - Home Meds: 1. lisinopril 5 mg Oral tab once daily 2. metformin 1,000 mg Oral tr24 1 tab twice a day (Last dose: 06/26/2016) 3. prednisone 20 mg Oral tab 1 tab 3 times per day pt has not picked up perscription yet. 4. Seroquel 400 mg Oral tab 5. trazodone 300 mg Oral tab 1 tab - PMHx: Bipolar disorder; Diabetes - NIDDM: controlled; Schizophrenia; - PSHx: none; - Social history: Smoking status: Patient uses tobacco products, current every day smoker. No barriers to communication noted, The patient speaks fluent Eritrean. - Family history: Not pertinent. - : The pt / caregiver states he / she is not on anticoagulants. Home medication list is obtained from the patient. - Exposure Risk Screening:: None identified. Screenin:58 Screening information is obtained from the patient. Fall risk: No risks identified. ttb Assistance ADL's: requires no assistance with activities of daily living. Abuse/DV Screen: The patient / caregiver reports he/she is: not in a situation that causes fear, pain or injury. Nutritional screening: No deficits noted. Advance Directives: Currently, there is no health care proxy. home support is adequate. Assessment: 17:58 General: Appears in no apparent distress, well nourished, Behavior is appropriate for ttb age, cooperative, pleasant. Pain: Denies pain. Neurological: Level of Consciousness is awake, alert. Cardiovascular: Chest pain is denied. Respiratory: Airway is patent Respiratory effort is even, unlabored, Respiratory pattern is regular, symmetrical, Reports shortness of breath on exertion cough that is the patient has mild shortness of breath Denies labored breathing. GI: Denies nausea, vomiting, pain. Derm: Skin is normal. 18:00 Reassessment: Patient appears in no apparent distress at this time. Patient denies pain ttb at this time. Patient states feeling better. Patient states symptoms have improved. pt requests medicaid cab home, secured.. Vital Signs: 16:10 BP 163 / 92 RA Sitting (auto/lg); Pulse 112; Resp 18; Temp 98.0(T); Pulse Ox 100% on rs6 R/A; Weight 145.6 kg (R); Height 6 ft. 2 in. (187.96 cm) (R); Pain 8/10; 16:10 Body Mass Index 41.21 (145.60 kg, 187.96 cm) rs6 Vitals: 16:10 Log In Time: June 27, 2016 at 16:10. 6 ED Course: 16:09 Patient visited by Krista Clements PCA. rs6 16:09 Patient moved to Waiting rs6 16:10 Jayden Raines is Private Physician. rs6 16:11 Patient visited by Krista Clements PCA. rs6 16:11 Patient moved to Pre RCE rs6 16:13 Triage Initiated ms18 16:34 Patient moved to Triage 3 ms18 16:35 [facility]aba [facility] dk1 16:35 Reji Simons MD is Attending Physician. dk1 16:39 Patient visited by Brian Ruvalcaba PA-C. dk1 16:52 Patient moved to PR2 / 26 ttb 17:38 Patient visited by Noemi Oropeza PCA. jb5 17:58 [facility] Payment Agreement was scanned into [employer] and attached to record. jp5 17:58 The patient / caregiver is instructed regarding the plan of care and ED course. Patient ttb has correct armband on for positive identification. 17:58 No IV's were initiated during this patient's visit. No procedures done that require ttb assistance. 17:59 Chest, 2 View (pa\\E\\lat) Returned. EDMS 02 10:26 T-Sheet-- Draft Copy was scanned into [employer] and attached to record. mm15 Administered Medications: 0203 17:04 Drug: Albuterol 5 mg [albuterol sulfate 2.5 mg/0.5 mL solution for nebulization (1 mL)] cs15 Route: Nebulizer; 17:10 Drug: Albuterol 2.5 mg [albuterol sulfate 2.5 mg/0.5 mL solution for nebulization (0.5 cs15 mL)] Route: Nebulizer; 17:58 Drug: Doxycycline 100 mg [doxycycline hyclate 100 mg tablet (1 tabs)] Route: PO; ttb 17:58 Drug: predniSONE 40 mg [prednisone 20 mg tablet (2 tabs)] Route: PO; ttb RT: 17:04 Initial Med Neb Given as ordered. Pre Peak Flow: 150. Respiratory: Respiratory effort cs15 is unlabored, Respiratory pattern is regular Breath sounds with wheezes bilaterally. at expiration. 17:17 Post Peak Flow: 180. cs15 17:28 Post Peak Flow: 260. cs15 Order Results: Radiology Order: Chest, 2 View (pa\\E\\lat) Test: Chest, 2 View (pa\\E\\lat) REASON FOR EXAMINATION: Cough; Chest x-ray: Two views.; ; History: Cough .; ; Comparison study: June 21, 2016 .; ; Findings: The lungs are well inflated and free of infiltrate. The pleural; angles are sharp. The heart size is normal. Pulmonary vasculature is not; increased. No significant bony abnormality is seen.; ; Impression:; ; Negative chest x-ray.; ; ; Signed by; Bebeto Garcia MD 06/27/2016 05:37 P; Outcome: 17:45 Discharge ordered by Provider. dk1 17:58 Discharge Assessment: Patient awake, alert and oriented x 3. No cognitive and/or ttb functional deficits noted. Patient verbalized understanding of disposition instructions. Patient awake and alert. patient administered narcotics - no. The following High Risk Discharge criteria are identified: None. Discharged to home ambulatory. Condition: good Condition: stable Condition: improved. Discharge instructions given to patient, Instructed on discharge instructions, follow up and referral plans. medication usage, Demonstrated understanding of instructions, medications, Pt was receptive of discharge instructions/ teaching. Prescriptions given X 2. No special radiology studies were completed. Property :Personal belongings accompany Pt. 18:11 Patient left the ED. ttb Signatures: Dispatcher [employer] EDMS Noemi Oropeza, ADDRESSER ADDRESSER jb5 Brian Ruvalcaba, PA-Michael PA-C dk1 Charmaine Chou, RN RN ttb Caitlin Russo mm15 Alicia Romero,RN RN ms18 Krista Clements, ADDRESSER ADDRESSER rs6 Jluis Gabriel jp5 Ismael Wagner,RT RT cs15 Chart Complete MTDD
--- NOTE | 2016-06-29 19:12 | EDDOCDS ---
Physician Documentation [facility] Name: Akbar Ulloa Age: 51 yrs Sex: Male : 1965 Arrival Date: 06/27/2016 Time: 16:06 Bed PR Private MD: Jayden Raines Disposition: 06/27/16 17:45 Discharged to Home/Self Care. Impression: Acute bronchitis. - Condition is Stable. - Discharge Instructions: Acute Bronchitis. - Prescriptions for Prednisone 20 mg Oral Tablet - take 2 tablet by ORAL route once daily for 5 days; 10 tablet. Doxycycline Monohydrate 100 mg Oral Tablet - take 1 tablet by ORAL route every 12 hours for 10 days; 20 tablet. - Medication Reconciliation, Local Pharmacy Hours form. - Follow up: Emergency Department; When: Tomorrow; Reason: Recheck today's complaints. - Problem is new. - Symptoms are unchanged. Historical: - Allergies: no known allergies; - Home Meds: 1. lisinopril 5 mg Oral tab once daily 2. metformin 1,000 mg Oral tr24 1 tab twice a day (Last dose: 06/26/2016) 3. prednisone 20 mg Oral tab 1 tab 3 times per day pt has not picked up perscription yet. 4. Seroquel 400 mg Oral tab 5. trazodone 300 mg Oral tab 1 tab - PMHx: Bipolar disorder; Diabetes - NIDDM: controlled; Schizophrenia; - PSHx: none; - Social history: Smoking status: Patient uses tobacco products, current every day smoker. No barriers to communication noted, The patient speaks fluent Yoruba. - Family history: Not pertinent. - : The pt / caregiver states he / she is not on anticoagulants. Home medication list is obtained from the patient. - Exposure Risk Screening:: None identified. Vital Signs: 06/27 16:10 BP 163 / 92 RA Sitting (auto/lg); Pulse 112; Resp 18; Temp 98.0(T); Pulse Ox 100% on rs6 R/A; Weight 145.6 kg / 320.99 lbs (R); Height 6 ft. 2 in. (187.96 cm) (R); Pain 8/10; 16:10 Body Mass Index 41.21 (145.60 kg, 187.96 cm) rs6 MDM: 16:48 Albuterol 5 mg Nebulizer once ordered. dk1 16:50 Chest, 2 View (pa\E\lat) Ordered. EDMS 16:52 Peak Flow Pre & Post ordered. dk1 16:55 Peak Flow Pre & Post complete. jb5 17:13 Albuterol 2.5 mg Nebulizer once x3 ordered. dk1 17:46 Doxycycline 100 mg PO once ordered. dk1 17:47 predniSONE 40 mg PO once; administer with food or milk ordered. dk1 17:58 [facility] Payment Agreement was scanned into [employer] and attached to record. jp5 17:58 Financial registration complete. jp5 06/28 10:26 T-Sheet-- Draft Copy was scanned into [employer] and attached to record. mm15 Administered Medications: 06/27 17:04 Drug: Albuterol 5 mg [albuterol sulfate 2.5 mg/0.5 mL solution for nebulization (1 mL)] cs15 Route: Nebulizer; 17:10 Drug: Albuterol 2.5 mg [albuterol sulfate 2.5 mg/0.5 mL solution for nebulization (0.5 cs15 mL)] Route: Nebulizer; 17:58 Drug: Doxycycline 100 mg [doxycycline hyclate 100 mg tablet (1 tabs)] Route: PO; ttb 17:58 Drug: predniSONE 40 mg [prednisone 20 mg tablet (2 tabs)] Route: PO; ttb Signatures: Dispatcher [employer]Host EDNoemi Hunter, WOUND CARE SPECIALIST WOUND CARE SPECIALIST jb5 Brian Ruvalcaba PA-C PARajan dk1 Charmaine Chou RN RN ttb Caitlin Russo mm15 Alicia Romero RN RN ms18 Jluis Gabriel jp5 Ismael Wagner RT cs15 The chart was reviewed and I authenticate all verbal orders and agree with the evaluation and treatment provided.Attachments: 17:58 [facility] Payment Agreement jp5 06/28 10:26 T-Sheet-- Draft Copy mm15 Chart Complete MTDD
== END 2016-06-27 18:11 | disposition home or self-care (01) ==
LOC: M ED 16:06
DX: J20.9 Acute bronchitis, unspecified (principal); F31.9 Bipolar disorder, unspecified; E11.9 Type 2 diabetes mellitus without complications; F20.9 Schizophrenia, unspecified; Z79.84 Long term (current) use of oral hypoglycemic drugs; Z79.899 Other long term (current) drug therapy; Z79.52 Long term (current) use of systemic steroids

== ENCOUNTER 2016-07-13 03:31 | Emergency (ER) | payer OTHER ==
[2016-07-13] MEDS ORDERED: IPRATROPIUM 0.5MG/ALBUTEROL 2.5MG INH SOL UD 3ML (DUONEB)(J7620) As Ordered ONE (04:04)
[2016-07-13] MEDS ORDERED: predniSONE 20 MG TAB As Ordered ONE (04:21)
--- NOTE | 2016-07-13 05:14 | EDDOCDS ---
Physician Documentation [facility] Name: Akbar Ulloa Age: 51 yrs Sex: Male : 1965 Arrival Date: 07/13/2016 Time: 03:31 Bed 5 Private MD: Disposition: 07/13/16 05:01 Discharged to Home/Self Care. Impression: Acute bronchitis. - Condition is Stable. - Discharge Instructions: Acute Bronchitis. - Prescriptions for Prednisone 20 mg Oral Tablet - take 2 tablet by ORAL route once daily for 5 days; 10 tablet. benzonatate 200 mg Oral Capsule - take 1 capsule by ORAL route 3 times per day As needed; 30 capsule. - Medication Reconciliation, Local Pharmacy Hours form. - Follow up: Private Physician; When: 2 - 3 days; Reason: Continuance of care. - Problem is an acute exacerbation. - Symptoms have improved. Historical: - Allergies: No known drug Allergies; - Home Meds: 1. lisinopril 5 mg Oral tab once daily 2. metformin 1,000 mg Oral tr24 1 tab twice a day 3. Seroquel 400 mg Oral tab 4. trazodone 300 mg Oral tab 1 tab 5. Ventolin Rotahaler/Rotacaps 200 mcg Inhl CpDv - PMHx: Bipolar disorder; Diabetes - NIDDM: controlled; Schizophrenia; - PSHx: none; - Social history: Smoking status: Patient uses tobacco products, current every day smoker. No barriers to communication noted, The patient speaks fluent Yemeni, Preferred Language: Yemeni. - Family history: Not pertinent. - : The pt / caregiver states he / she is not on anticoagulants. Home medication list is obtained from the patient. - Exposure Risk Screening:: None identified. Vital Signs: 07/13 03:47 BP 160 / 99; Pulse 98; Resp 20; Temp 98.8(O); Pulse Ox 96% on R/A; Weight 145.6 kg / rw1 320.99 lbs (R); Height 6 ft. 2 in. (187.96 cm) (R); Pain 0/10; 04:12 BP 158 / 64 (auto/); rw1 04:12 Pulse 106 MON; Pulse Ox 96% ; rw1 04:12 Temp 97.1(O); rw1 04:42 BP 146 / 73 (auto/); rw1 04:42 Pulse 106 MON; Pulse Ox 97% ; rw1 04:57 BP 167 / 81 (auto/); rw1 04:57 Pulse 104 MON; Pulse Ox 97% ; rw1 05:05 Pulse 106 MON; Pulse Ox 99% ; rw1 03:47 Body Mass Index 41.21 (145.60 kg, 187.96 cm) rw1 MDM: 03:59 predniSONE 40 mg PO once; administer with food or milk ordered. mm11 03:59 Albuterol-Ipratropium 1 neb Nebulizer every 20 minutes x3 ordered. mm11 03:59 Call Respiratory ordered. mm11 04:00 Chest, 2 View (pa\E\lat) Ordered. EDMS 04:00 -Influenza A&B Rapid Antigen - Nose Ordered. EDMS 04:02 Call Respiratory complete. ml3 04:32 Financial registration complete. pm4 04:44 -Influenza A&B Rapid Antigen - Nose Reviewed. mm11 04:50 [facility] Payment Agreement was scanned into [employer] and attached to record. pm4 Administered Medications: 04:07 Drug: Albuterol-Ipratropium 1 neb [ipratropium-albuterol 0.5 mg-3 mg(2.5 mg base)/3 mL jh6 nebulization soln (1 neb)] Route: Nebulizer; 04:24 Drug: predniSONE 40 mg [prednisone 20 mg tablet (2 tabs)] Route: PO; rw1 04:32 Drug: Albuterol-Ipratropium 1 neb [ipratropium-albuterol 0.5 mg-3 mg(2.5 mg base)/3 mL jh6 nebulization soln (1 neb)] Route: Nebulizer; Signatures: Dispatcher MedHost EDMS Ynes Gerber, Entert[employer] ml3 Chuy Eden,CORTNEY FILM CUTTER rw1 Sebastián Barreto DO DO mm11 Sierra Gonzalez,EDWARD RN ko2 Eze Vigil, Reg Reg pm4 Mike Null jh6 The chart was reviewed and I authenticate all verbal orders and agree with the evaluation and treatment provided.Attachments: 04:50 [facility] Payment Agreement pm4 MTDD
--- NOTE | 2016-07-13 05:14 | EDDOCDS ---
Nurse's Notes [facility] Name: Akbar Ulloa Age: 51 yrs Sex: Male : 1965 Arrival Date: 07/13/2016 Time: 03:31 Bed 5 Private MD: Diagnosis: Acute bronchitis Presentation: 07/13 03:50 Presenting complaint: Patient states: started wheezing a couple hours ago with no ko2 relief from inhaler. Adult Sepsis Screening: The patient does not have new or worsening altered mentation. Patient's respiratory rate is less than 22. Systolic blood pressure is greater than 100. Patient has a qSOFA score of 0- Negative Sepsis Screen. Suicide/Homicide risk assessment- the patient denies having any suicidal and/or homicidal ideations and does not present with any other emotional, behavioral or mental health complaints. Status: Patient is not a environmental services director or dependent. Transition of care: patient was not received from another setting of care. 03:50 Acuity: ELSA Level 3 ko2 03:50 Method Of Arrival: Walkin/Carried/Asstd ko2 Triage Assessment: 03:53 General: Appears in no apparent distress, Behavior is appropriate for age, cooperative. ko2 Pain: Denies pain. Pt Declines HIV testing. The patient is triaged at the bedside. See Assessment in Nurses Notes section of ED record. The patient is triaged at the bedside. See Assessment in Nurses Notes section of ED record. Neurological: Level of Consciousness is awake, alert. Respiratory: Onset: The symptoms/episode began/occurred gradually, Airway is patent Respiratory effort is even, unlabored, Respiratory pattern is regular, symmetrical. Derm: Skin is normal. Historical: - Allergies: No known drug Allergies; - Home Meds: 1. lisinopril 5 mg Oral tab once daily 2. metformin 1,000 mg Oral tr24 1 tab twice a day 3. Seroquel 400 mg Oral tab 4. trazodone 300 mg Oral tab 1 tab 5. Ventolin Rotahaler/Rotacaps 200 mcg Inhl CpDv - PMHx: Bipolar disorder; Diabetes - NIDDM: controlled; Schizophrenia; - PSHx: none; - Social history: Smoking status: Patient uses tobacco products, current every day smoker. No barriers to communication noted, The patient speaks fluent Samoan, Preferred Language: Samoan. - Family history: Not pertinent. - : The pt / caregiver states he / she is not on anticoagulants. Home medication list is obtained from the patient. - Exposure Risk Screening:: None identified. Screenin:12 Screening information is obtained from the patient. Fall risk: No risks identified. rw1 Assistance ADL's: requires no assistance with activities of daily living. Abuse/DV Screen: The patient / caregiver reports he/she is: not in a situation that causes fear, pain or injury. Nutritional screening: No deficits noted. Advance Directives: Currently, there is no health care proxy. home support is adequate. Assessment: 03:53 General: See triage assessment. ko2 05:09 Reassessment: Patient appears in no apparent distress at this time. Patient denies pain rw1 at this time. Patient states feeling better. Patient states symptoms have improved. Vital Signs: 03:47 BP 160 / 99; Pulse 98; Resp 20; Temp 98.8(O); Pulse Ox 96% on R/A; Weight 145.6 kg (R); rw1 Height 6 ft. 2 in. (187.96 cm) (R); Pain 0/10; 04:12 BP 158 / 64 (auto/); rw1 04:12 Pulse 106 MON; Pulse Ox 96% ; rw1 04:12 Temp 97.1(O); rw1 04:42 BP 146 / 73 (auto/); rw1 04:42 Pulse 106 MON; Pulse Ox 97% ; rw1 04:57 BP 167 / 81 (auto/); rw1 04:57 Pulse 104 MON; Pulse Ox 97% ; rw1 05:05 Pulse 106 MON; Pulse Ox 99% ; rw1 03:47 Body Mass Index 41.21 (145.60 kg, 187.96 cm) rw1 Vitals: 03:47 Log In Time: July 13, 2016 at 03:32. rw1 ED Course: 03:32 Patient visited by Celena Garcia. gjb 03:32 Patient moved to Waiting gjb 03:41 Sierra Gonzalez,EDWARD is Primary Nurse. may 03:41 Patient moved to 5 sonya 03:51 Triage Initiated ko2 03:55 Sebastián Barreto DO is Attending Physician. mm11 03:55 Patient visited by Sebastián Barreto DO. mm11 04:00 Patient visited by Sebastián Barreto DO. mm11 04:12 The patient / caregiver is instructed regarding the plan of care and ED course. rw1 04:12 No IV's were initiated during this patient's visit. No procedures done that require rw1 assistance. 04:18 -Influenza A&B Rapid Antigen - Nose Sent. ko2 04:45 Patient visited by Chuy Eden LPN. rw1 04:50 [facility] Payment Agreement was scanned into [employer] and attached to record. pm4 Administered Medications: 04:07 Drug: Albuterol-Ipratropium 1 neb [ipratropium-albuterol 0.5 mg-3 mg(2.5 mg base)/3 mL jh6 nebulization soln (1 neb)] Route: Nebulizer; 04:24 Drug: predniSONE 40 mg [prednisone 20 mg tablet (2 tabs)] Route: PO; rw1 04:32 Drug: Albuterol-Ipratropium 1 neb [ipratropium-albuterol 0.5 mg-3 mg(2.5 mg base)/3 mL jh6 nebulization soln (1 neb)] Route: Nebulizer; RT: 04:07 Initial Med Neb Given as ordered Patient was instructed and evaluated on procedure jh6 Patient tolerated procedure well without adverse effect. Respiratory: Airway Respiratory effort is even, unlabored, Respiratory pattern is regular symmetrical, Breath sounds are diminished in right upper lobe, left upper lobe, right middle lobe, left lower lobe and right lower lobe Breath sounds with wheezes in right upper lobe, left upper lobe, right middle lobe, left lower lobe and right lower lobe at expiration. 04:15 Respiratory: Airway is patent Respiratory effort is even, unlabored, Respiratory jh6 pattern is regular symmetrical, Breath sounds are diminished in right upper lobe, left upper lobe, right middle lobe, left lower lobe and right lower lobe. 04:32 Respiratory: Airway is patent Respiratory effort is even, unlabored, Respiratory jh6 pattern is regular symmetrical, Breath sounds are diminished in right upper lobe, left upper lobe, right middle lobe, left lower lobe and right lower lobe. Order Results: Lab Order: -Influenza A&B Rapid Antigen - Nose; SPEC'M 07/13/16 04:16 Test: INFLUENZA A RAPID SCR by ICA; Value: INFLUENZA A RESULTS NEGATIVE; Status: F Test: INFLUENZA A RAPID SCR by ICA; Value: Comments:; Status: F Test: INFLUENZA B RAPID SCR by ICA; Value: INFLUENZA B RESULTS NEGATIVE; Status: F Test Note: ; The Influenza test is a direct rapid immunoassay for the qualitative detection of Influenza viral antigen. Cell culture (Viral Culture) testing should be considered to confirm NEGATIVE results and to assist in detecting other viruses that can provide similar clinical symptoms. Please contact the lab within 24 hours ([phone]) if confirmatory testing is desired. Outcome: 04:12 Discharge Assessment: Patient awake, alert and oriented x 3. No cognitive and/or rw1 functional deficits noted. Patient verbalized understanding of disposition instructions. patient administered narcotics - no. The following High Risk Discharge criteria are identified: None. Discharged to home ambulatory, in cab. Condition: stable Condition: improved. Discharge instructions given to patient, Instructed on discharge instructions, follow up and referral plans. medication usage, Demonstrated understanding of instructions, medications, Pt was receptive of discharge instructions/ teaching. Prescriptions given X 2. No special radiology studies were completed. Property sent home with patient. 05:01 Discharge ordered by Provider. mm11 05:13 Patient left the ED. rw1 Signatures: Iliana Ortez, RN RN Chuy Stallings LPN [facility] DIRECTOR rw1 Sebastián Barreto, DO mm11 Mike Null jh6 Sierra Gonzalez,RN RN Celena Handley Paul, Reg Reg pm4 MTDD
--- NOTE | 2016-07-13 08:38 | REP ---
Clinical: Acute cough . Comparison: 06/27/2016 . Technique: PA and lateral. Findings: The mediastinum and cardiac silhouette are normal. The lung malhotra are clear and without acute consolidation, effusion, or pneumothorax. The skeletal structures are intact and normal. Impression: 1. No acute cardiopulmonary process. Signed by Natalio Stern MD 07/13/2016 08:29 A
--- NOTE | 2016-07-15 06:14 | EDDOCDS ---
Nurse's Notes [facility] Name: Akbar Ulloa Age: 51 yrs Sex: Male : 1965 Arrival Date: 07/13/2016 Time: 03:31 Bed 5 Private MD: Diagnosis: Acute bronchitis Presentation: 07/13 03:50 Presenting complaint: Patient states: started wheezing a couple hours ago with no ko2 relief from inhaler. Adult Sepsis Screening: The patient does not have new or worsening altered mentation. Patient's respiratory rate is less than 22. Systolic blood pressure is greater than 100. Patient has a qSOFA score of 0- Negative Sepsis Screen. Suicide/Homicide risk assessment- the patient denies having any suicidal and/or homicidal ideations and does not present with any other emotional, behavioral or mental health complaints. Status: Patient is not a seafood service team member or dependent. Transition of care: patient was not received from another setting of care. 03:50 Acuity: ELSA Level 3 ko2 03:50 Method Of Arrival: Walkin/Carried/Asstd ko2 Triage Assessment: 03:53 General: Appears in no apparent distress, Behavior is appropriate for age, cooperative. ko2 Pain: Denies pain. Pt Declines HIV testing. The patient is triaged at the bedside. See Assessment in Nurses Notes section of ED record. The patient is triaged at the bedside. See Assessment in Nurses Notes section of ED record. Neurological: Level of Consciousness is awake, alert. Respiratory: Onset: The symptoms/episode began/occurred gradually, Airway is patent Respiratory effort is even, unlabored, Respiratory pattern is regular, symmetrical. Derm: Skin is normal. Historical: - Allergies: No known drug Allergies; - Home Meds: 1. lisinopril 5 mg Oral tab once daily 2. metformin 1,000 mg Oral tr24 1 tab twice a day 3. Seroquel 400 mg Oral tab 4. trazodone 300 mg Oral tab 1 tab 5. Ventolin Rotahaler/Rotacaps 200 mcg Inhl CpDv - PMHx: Bipolar disorder; Diabetes - NIDDM: controlled; Schizophrenia; - PSHx: none; - Social history: Smoking status: Patient uses tobacco products, current every day smoker. No barriers to communication noted, The patient speaks fluent Belizean, Preferred Language: Belizean. - Family history: Not pertinent. - : The pt / caregiver states he / she is not on anticoagulants. Home medication list is obtained from the patient. - Exposure Risk Screening:: None identified. Screenin:12 Screening information is obtained from the patient. Fall risk: No risks identified. rw1 Assistance ADL's: requires no assistance with activities of daily living. Abuse/DV Screen: The patient / caregiver reports he/she is: not in a situation that causes fear, pain or injury. Nutritional screening: No deficits noted. Advance Directives: Currently, there is no health care proxy. home support is adequate. Assessment: 03:53 General: See triage assessment. ko2 05:09 Reassessment: Patient appears in no apparent distress at this time. Patient denies pain rw1 at this time. Patient states feeling better. Patient states symptoms have improved. Vital Signs: 03:47 BP 160 / 99; Pulse 98; Resp 20; Temp 98.8(O); Pulse Ox 96% on R/A; Weight 145.6 kg (R); rw1 Height 6 ft. 2 in. (187.96 cm) (R); Pain 0/10; 04:12 BP 158 / 64 (auto/); rw1 04:12 Pulse 106 MON; Pulse Ox 96% ; rw1 04:12 Temp 97.1(O); rw1 04:42 BP 146 / 73 (auto/); rw1 04:42 Pulse 106 MON; Pulse Ox 97% ; rw1 04:57 BP 167 / 81 (auto/); rw1 04:57 Pulse 104 MON; Pulse Ox 97% ; rw1 05:05 Pulse 106 MON; Pulse Ox 99% ; rw1 03:47 Body Mass Index 41.21 (145.60 kg, 187.96 cm) rw1 Vitals: 03:47 Log In Time: July 13, 2016 at 03:32. rw1 ED Course: 03:32 Patient visited by Celena Garcia. gjb 03:32 Patient moved to Waiting gjb 03:41 Sierra Gonzalez,EDWARD is Primary Nurse. may 03:41 Patient moved to 5 sonya 03:51 Triage Initiated ko2 03:55 Sebastián Barreto DO is Attending Physician. mm11 03:55 Patient visited by Sebastián Barreto DO. mm11 04:00 Patient visited by Barreto, Sebastián, DO. mm11 04:12 The patient / caregiver is instructed regarding the plan of care and ED course. rw1 04:12 No IV's were initiated during this patient's visit. No procedures done that require rw1 assistance. 04:18 -Influenza A&B Rapid Antigen - Nose Sent. ko2 04:45 Patient visited by Chuy Eedn LPN. rw1 04:50 [facility] Payment Agreement was scanned into [employer] and attached to record. pm4 08:39 Chest, 2 View (pa\E\lat) Returned. EDMS 17:37 T-Sheet-- Draft Copy was scanned into [employer] and attached to record. klr Administered Medications: 04:07 Drug: Albuterol-Ipratropium 1 neb [ipratropium-albuterol 0.5 mg-3 mg(2.5 mg base)/3 mL jh6 nebulization soln (1 neb)] Route: Nebulizer; 04:24 Drug: predniSONE 40 mg [prednisone 20 mg tablet (2 tabs)] Route: PO; rw1 04:32 Drug: Albuterol-Ipratropium 1 neb [ipratropium-albuterol 0.5 mg-3 mg(2.5 mg base)/3 mL jh6 nebulization soln (1 neb)] Route: Nebulizer; RT: 04:07 Initial Med Neb Given as ordered Patient was instructed and evaluated on procedure jh6 Patient tolerated procedure well without adverse effect. Respiratory: Airway Respiratory effort is even, unlabored, Respiratory pattern is regular symmetrical, Breath sounds are diminished in right upper lobe, left upper lobe, right middle lobe, left lower lobe and right lower lobe Breath sounds with wheezes in right upper lobe, left upper lobe, right middle lobe, left lower lobe and right lower lobe at expiration. 04:15 Respiratory: Airway is patent Respiratory effort is even, unlabored, Respiratory jh6 pattern is regular symmetrical, Breath sounds are diminished in right upper lobe, left upper lobe, right middle lobe, left lower lobe and right lower lobe. 04:32 Respiratory: Airway is patent Respiratory effort is even, unlabored, Respiratory jh6 pattern is regular symmetrical, Breath sounds are diminished in right upper lobe, left upper lobe, right middle lobe, left lower lobe and right lower lobe. Order Results: Lab Order: -Influenza A&B Rapid Antigen - Nose; SPEC'M 07/13/16 04:16 Test: INFLUENZA A RAPID SCR by ICA; Value: INFLUENZA A RESULTS NEGATIVE; Status: F Test: INFLUENZA A RAPID SCR by ICA; Value: Comments:; Status: F Test: INFLUENZA B RAPID SCR by ICA; Value: INFLUENZA B RESULTS NEGATIVE; Status: F Test Note: ; The Influenza test is a direct rapid immunoassay for the qualitative detection of Influenza viral antigen. Cell culture (Viral Culture) testing should be considered to confirm NEGATIVE results and to assist in detecting other viruses that can provide similar clinical symptoms. Please contact the lab within 24 hours ([phone]) if confirmatory testing is desired. Radiology Order: Chest, 2 View (pa\E\lat) Test: Chest, 2 View (pa\E\lat) REASON FOR EXAMINATION: Cough; Clinical: Acute cough .; ; Comparison: 06/27/2016 .; ; Technique: PA and lateral.; ; Findings:; The mediastinum and cardiac silhouette are normal. The lung malhotra are clear and; without acute consolidation, effusion, or pneumothorax. The skeletal structures; are intact and normal.; ; Impression:; 1. No acute cardiopulmonary process.; ; ; Signed by; Natalio Stern MD 07/13/2016 08:29 A; Outcome: 04:12 Discharge Assessment: Patient awake, alert and oriented x 3. No cognitive and/or rw1 functional deficits noted. Patient verbalized understanding of disposition instructions. patient administered narcotics - no. The following High Risk Discharge criteria are identified: None. Discharged to home ambulatory, in cab. Condition: stable Condition: improved. Discharge instructions given to patient, Instructed on discharge instructions, follow up and referral plans. medication usage, Demonstrated understanding of instructions, medications, Pt was receptive of discharge instructions/ teaching. Prescriptions given X 2. No special radiology studies were completed. Property sent home with patient. 05:01 Discharge ordered by Provider. mm11 05:13 Patient left the ED. rw1 Signatures: Dispatcher [employer] EDMS Iliana Ortez RN RN jan Workman, Robert, LPN LPN rw1 Sebastián Barreto, DO mm11 Mike Null 6 Sierra Gonzalez RN RN Celena Handley Kathie klr Montondo, Paul, Reg Reg pm4 Chart Complete MTDD
--- NOTE | 2016-07-15 06:14 | EDDOCDS ---
Physician Documentation [facility] Name: Akbar Ulloa Age: 51 yrs Sex: Male : 1965 Arrival Date: 07/13/2016 Time: 03:31 Bed 5 Private MD: Disposition: 07/13/16 05:01 Discharged to Home/Self Care. Impression: Acute bronchitis. - Condition is Stable. - Discharge Instructions: Acute Bronchitis. - Prescriptions for Prednisone 20 mg Oral Tablet - take 2 tablet by ORAL route once daily for 5 days; 10 tablet. benzonatate 200 mg Oral Capsule - take 1 capsule by ORAL route 3 times per day As needed; 30 capsule. - Medication Reconciliation, Local Pharmacy Hours form. - Follow up: Private Physician; When: 2 - 3 days; Reason: Continuance of care. - Problem is an acute exacerbation. - Symptoms have improved. Historical: - Allergies: No known drug Allergies; - Home Meds: 1. lisinopril 5 mg Oral tab once daily 2. metformin 1,000 mg Oral tr24 1 tab twice a day 3. Seroquel 400 mg Oral tab 4. trazodone 300 mg Oral tab 1 tab 5. Ventolin Rotahaler/Rotacaps 200 mcg Inhl CpDv - PMHx: Bipolar disorder; Diabetes - NIDDM: controlled; Schizophrenia; - PSHx: none; - Social history: Smoking status: Patient uses tobacco products, current every day smoker. No barriers to communication noted, The patient speaks fluent Com[place]an, Preferred Language: Com[place]an. - Family history: Not pertinent. - : The pt / caregiver states he / she is not on anticoagulants. Home medication list is obtained from the patient. - Exposure Risk Screening:: None identified. Vital Signs: 07/13 03:47 BP 160 / 99; Pulse 98; Resp 20; Temp 98.8(O); Pulse Ox 96% on R/A; Weight 145.6 kg / rw1 320.99 lbs (R); Height 6 ft. 2 in. (187.96 cm) (R); Pain 0/10; 04:12 BP 158 / 64 (auto/); rw1 04:12 Pulse 106 MON; Pulse Ox 96% ; rw1 04:12 Temp 97.1(O); rw1 04:42 BP 146 / 73 (auto/); rw1 04:42 Pulse 106 MON; Pulse Ox 97% ; rw1 04:57 BP 167 / 81 (auto/); rw1 04:57 Pulse 104 MON; Pulse Ox 97% ; rw1 05:05 Pulse 106 MON; Pulse Ox 99% ; rw1 03:47 Body Mass Index 41.21 (145.60 kg, 187.96 cm) rw1 MDM: 03:59 predniSONE 40 mg PO once; administer with food or milk ordered. mm11 03:59 Albuterol-Ipratropium 1 neb Nebulizer every 20 minutes x3 ordered. mm11 03:59 Call Respiratory ordered. mm11 04:00 Chest, 2 View (pa\E\lat) Ordered. EDMS 04:00 -Influenza A&B Rapid Antigen - Nose Ordered. EDMS 04:02 Call Respiratory complete. ml3 04:32 Financial registration complete. pm4 04:44 -Influenza A&B Rapid Antigen - Nose Reviewed. mm11 04:50 [facility] Payment Agreement was scanned into [employer] and attached to record. pm4 17:37 T-Sheet-- Draft Copy was scanned into [employer] and attached to record. klr Administered Medications: 04:07 Drug: Albuterol-Ipratropium 1 neb [ipratropium-albuterol 0.5 mg-3 mg(2.5 mg base)/3 mL 6 nebulization soln (1 neb)] Route: Nebulizer; 04:24 Drug: predniSONE 40 mg [prednisone 20 mg tablet (2 tabs)] Route: PO; rw1 04:32 Drug: Albuterol-Ipratropium 1 neb [ipratropium-albuterol 0.5 mg-3 mg(2.5 mg base)/3 mL 6 nebulization soln (1 neb)] Route: Nebulizer; Signatures: Dispatcher [employer] EDMS Ynes Gerber, Pipeman Unit ml3 Chuy Eden,CORTNEY GPS NAVIGATION INSTALLER rw1 Sebastián Barreto DO DO mm11 Sierra Gonzalez,EDWARD RN josh2 Atiya Joyce klr Eze Vigil, Reg Reg pm4 Mike Null jh6 The chart was reviewed and I authenticate all verbal orders and agree with the evaluation and treatment provided.Attachments: 04:50 [facility] Payment Agreement pm4 17:37 T-Sheet-- Draft Copy klr Chart Complete MTDD
--- NOTE | 2016-07-15 06:14 | EDDOCDS ---
Physician Documentation [facility] Name: Akbar Ulloa Age: 51 yrs Sex: Male : 1965 Arrival Date: 07/13/2016 Time: 03:31 Bed 5 Private MD: Disposition: 07/13/16 05:01 Discharged to Home/Self Care. Impression: Acute bronchitis. - Condition is Stable. - Discharge Instructions: Acute Bronchitis. - Prescriptions for Prednisone 20 mg Oral Tablet - take 2 tablet by ORAL route once daily for 5 days; 10 tablet. benzonatate 200 mg Oral Capsule - take 1 capsule by ORAL route 3 times per day As needed; 30 capsule. - Medication Reconciliation, Local Pharmacy Hours form. - Follow up: Private Physician; When: 2 - 3 days; Reason: Continuance of care. - Problem is an acute exacerbation. - Symptoms have improved. Historical: - Allergies: No known drug Allergies; - Home Meds: 1. lisinopril 5 mg Oral tab once daily 2. metformin 1,000 mg Oral tr24 1 tab twice a day 3. Seroquel 400 mg Oral tab 4. trazodone 300 mg Oral tab 1 tab 5. Ventolin Rotahaler/Rotacaps 200 mcg Inhl CpDv - PMHx: Bipolar disorder; Diabetes - NIDDM: controlled; Schizophrenia; - PSHx: none; - Social history: Smoking status: Patient uses tobacco products, current every day smoker. No barriers to communication noted, The patient speaks fluent Iraqi, Preferred Language: Iraqi. - Family history: Not pertinent. - : The pt / caregiver states he / she is not on anticoagulants. Home medication list is obtained from the patient. - Exposure Risk Screening:: None identified. Vital Signs: 07/13 03:47 BP 160 / 99; Pulse 98; Resp 20; Temp 98.8(O); Pulse Ox 96% on R/A; Weight 145.6 kg / rw1 320.99 lbs (R); Height 6 ft. 2 in. (187.96 cm) (R); Pain 0/10; 04:12 BP 158 / 64 (auto/); rw1 04:12 Pulse 106 MON; Pulse Ox 96% ; rw1 04:12 Temp 97.1(O); rw1 04:42 BP 146 / 73 (auto/); rw1 04:42 Pulse 106 MON; Pulse Ox 97% ; rw1 04:57 BP 167 / 81 (auto/); rw1 04:57 Pulse 104 MON; Pulse Ox 97% ; rw1 05:05 Pulse 106 MON; Pulse Ox 99% ; rw1 03:47 Body Mass Index 41.21 (145.60 kg, 187.96 cm) rw1 MDM: 03:59 predniSONE 40 mg PO once; administer with food or milk ordered. mm11 03:59 Albuterol-Ipratropium 1 neb Nebulizer every 20 minutes x3 ordered. mm11 03:59 Call Respiratory ordered. mm11 04:00 Chest, 2 View (pa\E\lat) Ordered. EDMS 04:00 -Influenza A&B Rapid Antigen - Nose Ordered. EDMS 04:02 Call Respiratory complete. ml3 04:32 Financial registration complete. pm4 04:44 -Influenza A&B Rapid Antigen - Nose Reviewed. mm11 04:50 [facility] Payment Agreement was scanned into [employer] and attached to record. pm4 17:37 T-Sheet-- Draft Copy was scanned into [employer] and attached to record. klr Administered Medications: 04:07 Drug: Albuterol-Ipratropium 1 neb [ipratropium-albuterol 0.5 mg-3 mg(2.5 mg base)/3 mL 6 nebulization soln (1 neb)] Route: Nebulizer; 04:24 Drug: predniSONE 40 mg [prednisone 20 mg tablet (2 tabs)] Route: PO; rw1 04:32 Drug: Albuterol-Ipratropium 1 neb [ipratropium-albuterol 0.5 mg-3 mg(2.5 mg base)/3 mL 6 nebulization soln (1 neb)] Route: Nebulizer; Signatures: Dispatcher [employer] EDMS Ynes Gerber, Research Assistant Member Unit ml3 Chuy Eden,CORTNEY TABULATING CLERK rw1 Sebastián Barreto DO DO mm11 Sierra Gonzalez,EDWARD RN josh2 Atiya Joyce klr Eze Vigil, Reg Reg pm4 Mike Null jh6 The chart was reviewed and I authenticate all verbal orders and agree with the evaluation and treatment provided.Attachments: 04:50 [facility] Payment Agreement pm4 17:37 T-Sheet-- Draft Copy klr Chart Complete MTDD
== END 2016-07-13 05:13 | disposition home or self-care (01) ==
LOC: M ED 03:31
DX: J20.9 Acute bronchitis, unspecified (principal); F31.9 Bipolar disorder, unspecified; E11.9 Type 2 diabetes mellitus without complications; F20.9 Schizophrenia, unspecified; Z72.0 Tobacco use; Z79.84 Long term (current) use of oral hypoglycemic drugs; Z79.899 Other long term (current) drug therapy

== ENCOUNTER → 2016-07-21 | Outpatient (CLI) | payer OTHER | LOC: M OUTALCOH 07:45 | PROVIDERS: ATTEND Psychiatry & Neurology Psychiatry | DX: Z13.9 Encounter for screening, unspecified (principal); F10.20 Alcohol dependence, uncomplicated; F14.20 Cocaine dependence, uncomplicated ==

== ENCOUNTER 2016-08-10 02:42 | Emergency (ER) | payer OTHER ==
[~2016-08-10] VITALS: Ht 188 cm; Wt 145.6 kg
[2016-08-10 02:50] VITALS: BP 139/89
[2016-08-10] MEDS ORDERED: ALBUTEROL SULFATE 2.5 MG/0.5 ML INH NEB SOLN INH ONE ×2 (05:15→05:45)
[2016-08-10] MEDS ORDERED: ALBU17IN INH (06:15)
== END 2016-08-10 06:35 | disposition home or self-care (01) ==
LOC: M ED 03:35
DX: J45.901 Unspecified asthma with (acute) exacerbation (principal)

== ENCOUNTER 2016-08-19 12:50 | Emergency (ER) | payer OTHER ==
[~2016-08-19] VITALS: Ht 188 cm; Wt 145.1 kg
[~2016-08-19 12:50] MED LIST changes: +ALBU17IN INH
[2016-08-19 12:55] VITALS: BP 162/94
[2016-08-19] MEDS ORDERED: INVE1.31 (12:58)
[2016-08-19] MEDS ORDERED: ONDANSETRON 4 MG ORAL DISINTEGRATING TAB (S0181) PO ONE (13:45)
[2016-08-19] MEDS ORDERED: ZOFR4TAB3 PO (13:57)
== END 2016-08-19 14:34 | disposition home or self-care (01) ==
LOC: M ED 13:41
DX: A09 Infectious gastroenteritis and colitis, unspecified (principal); R10.84 Generalized abdominal pain; R11.2 Nausea with vomiting, unspecified; R19.7 Diarrhea, unspecified; I10 Essential (primary) hypertension; F31.9 Bipolar disorder, unspecified; E11.9 Type 2 diabetes mellitus without complications; G47.30 Sleep apnea, unspecified; Z87.820 Personal history of traumatic brain injury; F17.200 Nicotine dependence, unspecified, uncomplicated; Z79.899 Other long term (current) drug therapy

== ENCOUNTER → 2016-09-16 | Outpatient (CLI) | payer OTHER ==
[~2016-09-16] MED LIST changes: -COLA100C PO; +COLA100C3 PO; +INVE1.31; +ZOFR4TAB3 PO
== END ==
LOC: M OUTALCOH 09:15
PROVIDERS: ATTEND Psychiatry & Neurology Psychiatry
DX: Z13.9 Encounter for screening, unspecified (principal); F10.20 Alcohol dependence, uncomplicated; F14.20 Cocaine dependence, uncomplicated

== ENCOUNTER 2016-10-03 13:29 | Emergency (ER) | payer OTHER ==
[~2016-10-03] VITALS: Ht 188 cm; Wt 141.5 kg
[2016-10-03] MEDS ORDERED: SERO400T PO (13:48)
[2016-10-03 14:15] LABS: BASO % 0.8 % (0.0-1.0); EOS # 0.2 K/mm3 (0.0-0.50); EOS % 2.9 % (0.0-3.0); LARGE UNSTAINED CELL # 0.1 K/mm3 (0.0-0.4); LARGE UNSTAINED CELL % 1.8 % (0.0-4.0); LYMPH # 3.4 K/mm3 (1.5-4.5); LYMPH % 52.3 % (24.0-44.0); MEAN CORPUSCULAR HEMOGLOBIN 28.6 pg (27.0-33.0); MEAN CORPUSCULAR HGB CONC 33.9 g/dl (32.0-36.5); MEAN CORPUSCULAR VOLUME 84.5 fl (80.0-96.0); MONO # 0.3 K/mm3 (0.0-0.8); MONO % 4.9 % (0.0-5.0); NEUTROPHILS # 2.3 K/mm3 (1.8-7.7); NEUTROPHILS % 37.3 % (36.0-66.0); PLATELET COUNT, AUTOMATED 226 k/mm3 (150-450); RED CELL DISTRIBUTION WIDTH 12.9 % (11.5-14.5); WHITE BLOOD COUNT 6.2 K/mm3 (4.0-10.0)
[2016-10-03 14:33] LABS: ANION GAP 9 MEQ/L (8-16); BLOOD UREA NITROGEN 12 MG/DL (7-18); CALCIUM LEVEL 8.4 MG/DL (8.5-10.1); CARBON DIOXIDE LEVEL 27 MEQ/L (21-32); CHLORIDE LEVEL 100 MEQ/L (98-107); CREATININE FOR GFR 1.36 MG/DL (0.70-1.30); GLOMERULAR FILTRATION RATE > 60.0 (>56); GLUCOSE, FASTING 206 MG/DL (70-105); POTASSIUM SERUM 3.8 MEQ/L (3.5-5.1); SODIUM LEVEL 136 MEQ/L (136-145)
--- NOTE | 2016-10-03 14:38 | REP ---
CHEST, PORTABLE: Single view. Comparison 07/13/2016. There is no evidence of acute infiltrate. No pleural effusion is seen. The heart is normal in size. The mediastinal silhouette is unremarkable. The visualized osseous structures are intact. IMPRESSION: No acute pulmonary disease. Signed by Parish Huizar MD 10/03/2016 08:02 P
[2016-10-03 19:01] VITALS: BP 145/82
--- NOTE | 2016-10-04 16:17 | ECGEPIP ---
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
--- NOTE | 2016-10-04 16:37 | ECGEPIP ---
Stationary ECG Study [facility] - ED Test Date: 2016-10-03 Pat Name: BRIGID FLORES Department: Room: - Gender: M Contract Runner: rn : 1965 Requested By: YONI WALSH Order Number: [id number] Reading MD: Magui Parnell Measurements Intervals [place] Rate: 90 P: 24 ME: 193 QRS: 16 QRSD: 80 T: -43 QT: 347 QTc: 425 Interpretive Statements SINUS RHYTHM NONSPECIFIC T-WAVE ABNORMALITY DECREASED RATE 10/03/16 Electronically Signed On 10-04-2016 16:37:30 EDT by Magui Parnell
== END 2016-10-03 19:03 | disposition home or self-care (01) ==
LOC: EDBD 13:29 → M ED 14:52
DX: R09.1 Pleurisy (principal); E11.9 Type 2 diabetes mellitus without complications; I10 Essential (primary) hypertension; F10.10 Alcohol abuse, uncomplicated; F17.200 Nicotine dependence, unspecified, uncomplicated; Z87.820 Personal history of traumatic brain injury; R94.31 Abnormal electrocardiogram [ECG] [EKG]; Z79.84 Long term (current) use of oral hypoglycemic drugs; Z79.899 Other long term (current) drug therapy

== ENCOUNTER 2016-10-16 09:00 | Outpatient (RCR) | payer OTHER ==
[~2016-10-16 09:00] MED LIST changes: +SERO400T PO
== END 2016-10-22 ==
LOC: M OUTALCOH 09:00
PROVIDERS: ATTEND Psychiatry & Neurology Psychiatry
DX: F10.20 Alcohol dependence, uncomplicated (principal); F14.20 Cocaine dependence, uncomplicated; F17.210 Nicotine dependence, cigarettes, uncomplicated

== ENCOUNTER → 2016-10-23 | Outpatient (CLI) | payer MEDICAID ==
[2016-10-23 11:00] LABS: BASO % 0.6 % (0.0-1.0); EOS # 0.2 K/mm3 (0.0-0.50); EOS % 3.1 % (0.0-3.0); LARGE UNSTAINED CELL # 0.1 K/mm3 (0.0-0.4); LYMPH # 3.1 K/mm3 (1.5-4.5); LYMPH % 44.3 % (24.0-44.0); MEAN CORPUSCULAR HEMOGLOBIN 29.4 pg (27.0-33.0); MEAN CORPUSCULAR HGB CONC 34.5 g/dl (32.0-36.5); MEAN CORPUSCULAR VOLUME 85.4 fl (80.0-96.0); MONO # 0.4 K/mm3 (0.0-0.8); MONO % 5.6 % (0.0-5.0); NEUTROPHILS # 3.1 K/mm3 (1.8-7.7); NEUTROPHILS % 45.3 % (36.0-66.0); PLATELET COUNT, AUTOMATED 241 k/mm3 (150-450); RED CELL DISTRIBUTION WIDTH 12.7 % (11.5-14.5); WHITE BLOOD COUNT 6.8 K/mm3 (4.0-10.0)
[2016-10-23 11:47] LABS: ALBUMIN 3.7 GM/DL (3.2-5.2); ALBUMIN/GLOBULIN RATIO 1.09 (1.00-1.93); ALKALINE PHOSPHATASE 76 U/L (45-117); ALT/SGPT 31 U/L (12-78); ANION GAP 6 MEQ/L (8-16); AST/SGOT 19 U/L (15-37); BILIRUBIN,TOTAL 0.3 MG/DL (0.2-1.0); BLOOD UREA NITROGEN 8 MG/DL (7-18); CALCIUM LEVEL 8.8 MG/DL (8.5-10.1); CARBON DIOXIDE LEVEL 31 MEQ/L (21-32); CHLORIDE LEVEL 103 MEQ/L (98-107); CHOLESTEROL LEVEL 175 MG/DL (<200); CREATININE FOR GFR 1.07 MG/DL (0.70-1.30); GLOMERULAR FILTRATION RATE > 60.0 (>56); GLUCOSE, FASTING 176 MG/DL (70-105); SODIUM LEVEL 140 MEQ/L (136-145); TOTAL PROTEIN 7.1 GM/DL (6.4-8.2); TRIGLYCERIDES LEVEL 211 MG/DL (<150)
== END ==
LOC: M LAB 10:18
PROVIDERS: ATTEND Family Medicine Addiction Medicine
DX: E11.9 Type 2 diabetes mellitus without complications (principal)

== ENCOUNTER 2016-11-20 08:30 | Outpatient (RCR) | payer MEDICAID ==
[~2016-11-20 08:30] MED LIST changes: +ABIL1TAB11 PO; -ABIL5TAB5 PO; -COLA100C3 PO; +COLA100C5 PO; -METF500T PO; +METF500T13 PO; -QUET1TAB11 PO; +QUET400T PO; -RISP2TAB30 PO; +RISP2TAB32 PO
== END 2016-11-21 | disposition home or self-care (01) ==
LOC: M OUTALCOH 08:30
PROVIDERS: ATTEND Psychiatry & Neurology Psychiatry
DX: F10.20 Alcohol dependence, uncomplicated (principal); F14.20 Cocaine dependence, uncomplicated; Z72.0 Tobacco use

== ENCOUNTER 2016-12-04 09:00 | Outpatient (RCR) | payer MEDICAID | END 2016-12-22 | LOC: M OUTALCOH 09:00 | PROVIDERS: ATTEND Psychiatry & Neurology Psychiatry | DX: F10.20 Alcohol dependence, uncomplicated (principal); F14.20 Cocaine dependence, uncomplicated; Z72.0 Tobacco use ==

== ENCOUNTER → 2017-01-13 | Outpatient (CLI) | payer MEDICAID | LOC: M OUTALCOH 08:05 | PROVIDERS: ATTEND Psychiatry & Neurology Psychiatry | DX: Z13.9 Encounter for screening, unspecified (principal); F10.20 Alcohol dependence, uncomplicated; F14.20 Cocaine dependence, uncomplicated ==

== ENCOUNTER 2017-01-16 10:00 | Outpatient (RCR) | payer MEDICAID | END 2017-01-22 | LOC: M OUTALCOH 10:00 | PROVIDERS: ATTEND Psychiatry & Neurology Psychiatry | DX: F10.20 Alcohol dependence, uncomplicated (principal); F14.20 Cocaine dependence, uncomplicated; F17.210 Nicotine dependence, cigarettes, uncomplicated ==

== ENCOUNTER 2017-01-23 14:45 | Outpatient (RCR) | payer MEDICAID | END 2017-02-21 | LOC: M OUTALCOH 14:45 | PROVIDERS: ATTEND Psychiatry & Neurology Psychiatry | DX: F10.20 Alcohol dependence, uncomplicated (principal); F14.20 Cocaine dependence, uncomplicated; Z72.0 Tobacco use ==

== ENCOUNTER → 2017-03-10 | Outpatient (CLI) | payer MEDICAID | LOC: M OUTALCOH 07:52 | PROVIDERS: ATTEND Psychiatry & Neurology Psychiatry | DX: F14.20 Cocaine dependence, uncomplicated (principal) ==

== ENCOUNTER → 2017-04-23 | Outpatient (RCR) | payer MEDICAID | LOC: M OUTALCOH 04-02 09:00 | PROVIDERS: ATTEND Psychiatry & Neurology Psychiatry | DX: F10.20 Alcohol dependence, uncomplicated (principal); F14.20 Cocaine dependence, uncomplicated; Z72.0 Tobacco use ==

== ENCOUNTER 2017-04-27 09:00 | Outpatient (RCR) | payer MEDICAID | END 2017-05-24 | LOC: M OUTALCOH 04-30 10:00 | DX: F10.20 Alcohol dependence, uncomplicated (principal); F14.20 Cocaine dependence, uncomplicated; Z72.0 Tobacco use ==

== ENCOUNTER 2017-05-26 10:19 | Outpatient (RCR) | payer MEDICAID | END 2017-06-24 | LOC: M OUTALCOH 05-28 11:00 | DX: F14.20 Cocaine dependence, uncomplicated (principal); F10.20 Alcohol dependence, uncomplicated; Z72.0 Tobacco use ==

== ENCOUNTER → 2017-05-30 | Outpatient (CLI) | payer OTHER | LOC: M SLEEP 20:00 | DX: G47.33 Obstructive sleep apnea (adult) (pediatric) (principal) | CPT/HCPCS: 95811 ==

== ENCOUNTER 2017-06-25 11:15 | Outpatient (RCR) | payer MEDICAID | END 2017-07-22 | LOC: M OUTALCOH 11:15 | DX: F10.20 Alcohol dependence, uncomplicated (principal); F14.20 Cocaine dependence, uncomplicated; Z72.0 Tobacco use ==

== ENCOUNTER 2017-07-15 01:27 | Emergency (ER) | payer OTHER, MEDICAID ==
[2017-07-15] MEDS: KETOROLAC 60 MG/2 ML VIAL (J1885) IM ×2 (03:57)
[2017-07-15 04:04] LABS: BEDSIDE GLUCOSE 134 MG/DL (70-105)
[2017-07-15 04:09] LABS: CARBOXYHEMOGLOBIN 6.1 % (0.0-1.5)
== END 2017-07-15 04:26 | disposition home or self-care (01) ==
LOC: M ED 01:27
DX: R51 Headache (principal); E11.9 Type 2 diabetes mellitus without complications; I10 Essential (primary) hypertension; F17.210 Nicotine dependence, cigarettes, uncomplicated; F20.9 Schizophrenia, unspecified; Z79.84 Long term (current) use of oral hypoglycemic drugs; Z79.899 Other long term (current) drug therapy; Z87.820 Personal history of traumatic brain injury
CPT/HCPCS: J1885

== ENCOUNTER 2017-07-23 14:05 | Outpatient (RCR) | payer OTHER | END 2017-08-22 | LOC: M OUTALCOH 14:05 | DX: F10.20 Alcohol dependence, uncomplicated (principal); F14.20 Cocaine dependence, uncomplicated; Z72.0 Tobacco use ==

== ENCOUNTER 2017-07-30 03:14 | Emergency (ER) | payer OTHER ==
[2017-07-30] MEDS: methylPREDNISolone INJ 125 MG/2 ML VIAL (J2930) IV (03:45)
[2017-07-30 03:53] LABS: HEMATOCRIT 40.1 % (42.0-52.0); MEAN CORPUSCULAR HEMOGLOBIN 28.5 pg (27.0-33.0); MEAN CORPUSCULAR HGB CONC 34.9 g/dl (32.0-36.5); MEAN CORPUSCULAR VOLUME 81.5 fl (80.0-96.0); PLATELET COUNT, AUTOMATED 231 10^3/uL (150-450); RED BLOOD COUNT 4.92 10^6/uL (4.30-6.10); RED CELL DISTRIBUTION WIDTH 12.4 % (11.5-14.5)
[2017-07-30 03:54] LABS: ADD MANUAL DIFFER YES; DIFF SLIDE NUMBER 97; POSITIVE DIFF POS FLAG; WHITE BLOOD COUNT 8.4 10^3/uL (4.0-10.0)
[2017-07-30] MEDS: IPRATROPIUM 0.5MG/ALBUTEROL 2.5MG INH SOL UD 3ML (DUONEB)(J7620) NEB (04:01)
[2017-07-30 04:17] LABS: ABG BASE EXCESS 1.7 (-2.0-2.0); ABG HCO3 26.7 MEQ/L (22.0-26.0); ABG O2 SATURATION 93.9 % (95.0-99.0); ABG PARTIAL PRESSURE CO2 43.2 mmHg (35.0-45.0); ABG PARTIAL PRESSURE O2 67.8 mmHg (75.0-100.0); ABG STANDARD HCO3 25.9 MEQ/L (22.0-26.0); ABG pH (ARTERIAL) 7.409 UNITS (7.350-7.450)
[2017-07-30 04:18] LABS: ANION GAP 10 MEQ/L (8-16); BLOOD UREA NITROGEN 12 MG/DL (7-18); CALCIUM LEVEL 8.8 MG/DL (8.5-10.1); CARBON DIOXIDE LEVEL 28 MEQ/L (21-32); CHLORIDE LEVEL 101 MEQ/L (98-107); CREATININE FOR GFR 1.24 MG/DL (0.70-1.30); GLOMERULAR FILTRATION RATE > 60.0 (>56); GLUCOSE, FASTING 164 MG/DL (70-100); POTASSIUM SERUM 3.6 MEQ/L (3.5-5.1); SODIUM LEVEL 139 MEQ/L (136-145)
[2017-07-30 04:27] LABS: ATYPICAL LYMPH 12 % (0-5); EOSINOPHILS 1 % (0-5); LYMPHOCYTES 58 % (16-52); MONOCYTES 3 % (0-8); NEUTROPHILS 26 % (35-75); PLATELET ESTIMATE NORMAL (NORMAL)
[2017-07-30 05:31] LABS: INFLUENZA A AMPLIFICATION NEGATIVE (NEGATIVE); INFLUENZA B AMPLIFICATION NEGATIVE (NEGATIVE)
[2017-07-30] MEDS: AZITHROMYCIN 250 MG TAB PO (06:17)
== END 2017-07-30 06:25 | disposition home or self-care (01) ==
LOC: M ED 03:14
DX: J20.9 Acute bronchitis, unspecified (principal); E66.9 Obesity, unspecified; F12.10 Cannabis abuse, uncomplicated; F20.9 Schizophrenia, unspecified; Z79.84 Long term (current) use of oral hypoglycemic drugs; Z79.899 Other long term (current) drug therapy
CPT/HCPCS: J2930

== ENCOUNTER 2017-08-10 22:49 | Inpatient (IN) | payer MEDICAID, OTHER ==
[2017-08-10 23:33] LABS: HEMATOCRIT 38.6 % (42.0-52.0); HEMOGLOBIN 13.4 g/dl (14.0-18.0); MEAN CORPUSCULAR HEMOGLOBIN 28.4 pg (27.0-33.0); MEAN CORPUSCULAR HGB CONC 34.7 g/dl (32.0-36.5); MEAN CORPUSCULAR VOLUME 81.8 fl (80.0-96.0); PLATELET COUNT, AUTOMATED 224 10^3/uL (150-450); RED BLOOD COUNT 4.72 10^6/uL (4.30-6.10); RED CELL DISTRIBUTION WIDTH 12.8 % (11.5-14.5); WHITE BLOOD COUNT 10.7 10^3/uL (4.0-10.0)
[2017-08-11 00:03] LABS: AMPHETAMINES LEVEL URINE NEGATIVE (NEGATIVE); BARBITURATES URINE NEGATIVE (NEGATIVE); BENZODIAZEPINES URINE NEGATIVE (NEGATIVE); CANNABINOIDS URINE NEGATIVE (NEGATIVE); COCAINE METABOLITE URINE NEGATIVE (NEGATIVE); METHADONE URINE NEGATIVE (NEGATIVE); OPIATES URINE NEGATIVE (NEGATIVE); PHENCYCLIDINE URINE NEGATIVE (NEGATIVE)
[2017-08-11 00:12] LABS: ACETAMINOPHEN LEVEL < 2.0 UG/ML (10.0-30.0); ALBUMIN 3.8 GM/DL (3.2-5.2); ALBUMIN/GLOBULIN RATIO 1.19 (1.00-1.93); ALKALINE PHOSPHATASE 63 U/L (45-117); ALT/SGPT 27 U/L (12-78); ANION GAP 12 MEQ/L (8-16); AST/SGOT 14 U/L (7-37); BILIRUBIN,DIRECT 0.1 MG/DL (0.0-0.2); BILIRUBIN,TOTAL 0.3 MG/DL (0.2-1.0); BLOOD UREA NITROGEN 11 MG/DL (7-18); CALCIUM LEVEL 8.6 MG/DL (8.5-10.1); CARBON DIOXIDE LEVEL 24 MEQ/L (21-32); CHLORIDE LEVEL 103 MEQ/L (98-107); CREATININE FOR GFR 1.02 MG/DL (0.70-1.30); ETHYL ALCOHOL (ETHANOL) 0.025 % (0.000-0.010); GLOMERULAR FILTRATION RATE > 60.0 (>56); GLUCOSE, FASTING 135 MG/DL (70-100); POTASSIUM SERUM 3.7 MEQ/L (3.5-5.1); SALICYLATE LEVEL 3.4 MG/DL (5.0-30.0); SODIUM LEVEL 139 MEQ/L (136-145)
[2017-08-11] MEDS ORDERED: cloNIDine 0.2 MG TAB PO (00:30)
[2017-08-11] MEDS ORDERED: MAALOX 30 ML SUSP *UDC PO (01:00)
[2017-08-11] MEDS ORDERED: ACETAMINOPHEN TAB 650MG DOSE (2X325MG) PO (01:00)
[2017-08-11] MEDS ORDERED: MOM 30ML SUSPENSION UDC PO (01:00)
[2017-08-11] MEDS ORDERED: ALBUTEROL 90 MCG/ACT 8GM HFA INHALER INH (02:00)
[2017-08-11 06:44] LABS: BEDSIDE GLUCOSE 160 MG/DL (70-105)
[2017-08-11] MEDS: metFORMIN (GLUCOPHAGE) 1000 MG TABLET PO ×2 (09:03→17:12)
[2017-08-11] MEDS: LISINOPRIL 5 MG TAB PO (09:04)
[2017-08-11] MEDS: predniSONE 10 MG TAB PO (13:06)
[2017-08-11 17:20] LABS: BEDSIDE GLUCOSE 195 MG/DL (70-105)
[2017-08-11] MEDS: QUEtiapine FUMARATE 200 MG TAB PO (21:03)
[2017-08-11] MEDS: PALIPERIDONE 3 MG ER TAB (INVEGA) PO (21:03)
[2017-08-11] MEDS: traZODone 100 MG TAB PO (21:04)
[2017-08-12 06:50] LABS: BEDSIDE GLUCOSE 152 MG/DL (70-105)
[2017-08-12] MEDS: INFLUENZA QUADRIVALENT PF VACCINE 0.5ML SYRINGE (90686) IM (08:43)
[2017-08-12] MEDS: metFORMIN (GLUCOPHAGE) 1000 MG TABLET PO ×2 (08:43→17:08)
[2017-08-12] MEDS: LISINOPRIL 5 MG TAB PO (08:43)
[2017-08-12 17:23] LABS: BEDSIDE GLUCOSE 165 MG/DL (70-105)
[2017-08-12] MEDS: traZODone 100 MG TAB PO (21:01)
[2017-08-12] MEDS: PALIPERIDONE 3 MG ER TAB (INVEGA) PO (21:01)
[2017-08-12] MEDS: QUEtiapine FUMARATE 200 MG TAB PO (21:01)
[2017-08-13 06:23] LABS: BEDSIDE GLUCOSE 139 MG/DL (70-105)
[2017-08-13] MEDS: LISINOPRIL 5 MG TAB PO (08:25)
[2017-08-13] MEDS: metFORMIN (GLUCOPHAGE) 1000 MG TABLET PO (08:25)
== END 2017-08-13 13:25 | disposition home or self-care (01) | DRG 885 ==
LOC: M ED INP 08-11 00:48 → M ED 22:49 → M PSY 08-11 01:53
DX: F20.9 Schizophrenia, unspecified (principal); R45.851 Suicidal ideations; I50.32 Chronic diastolic (congestive) heart failure; F10.10 Alcohol abuse, uncomplicated; Z91.19 Patient's noncompliance with other medical treatment and regimen; Z79.899 Other long term (current) drug therapy; I11.0 Hypertensive heart disease with heart failure; E11.9 Type 2 diabetes mellitus without complications; J44.9 Chronic obstructive pulmonary disease, unspecified; F17.200 Nicotine dependence, unspecified, uncomplicated; H54.8 Legal blindness, as defined in USA; E66.9 Obesity, unspecified; G47.33 Obstructive sleep apnea (adult) (pediatric); Z68.39 Body mass index [BMI] 39.0-39.9, adult; Z79.52 Long term (current) use of systemic steroids

== ENCOUNTER 2017-08-17 12:27 | Emergency (ER) | payer OTHER ==
[2017-08-17] MEDS: IPRATROPIUM 0.5MG/ALBUTEROL 2.5MG INH SOL UD 3ML (DUONEB)(J7620) NEB (13:07)
[2017-08-17] MEDS: predniSONE 20 MG TAB PO (13:11)
[2017-08-17 13:18] LABS: ABG BASE EXCESS -2.1 (-2.0-2.0); ABG HCO3 22.6 MEQ/L (22.0-26.0); ABG O2 SATURATION 93.8 % (95.0-99.0); ABG PARTIAL PRESSURE CO2 38.4 mmHg (35.0-45.0); ABG PARTIAL PRESSURE O2 70.8 mmHg (75.0-100.0); ABG STANDARD HCO3 22.7 MEQ/L (22.0-26.0); ABG TOTAL CO2 23.7 MEQ/L (22.0-29.0); ABG pH (ARTERIAL) 7.387 UNITS (7.350-7.450)
== END 2017-08-17 16:10 | disposition home or self-care (01) ==
LOC: M ED 12:27
DX: J44.1 Chronic obstructive pulmonary disease with (acute) exacerbation (principal); F20.9 Schizophrenia, unspecified; F12.10 Cannabis abuse, uncomplicated; F10.10 Alcohol abuse, uncomplicated; Z79.899 Other long term (current) drug therapy; F17.210 Nicotine dependence, cigarettes, uncomplicated
CPT/HCPCS: 94640

== ENCOUNTER 2017-08-26 10:00 | Outpatient (RCR) | payer MEDICAID, SELFPAY | END 2017-09-21 | LOC: M OUTALCOH 10:00 | DX: F10.20 Alcohol dependence, uncomplicated (principal); F14.20 Cocaine dependence, uncomplicated; Z72.0 Tobacco use ==

== ENCOUNTER 2017-10-05 13:45 | Outpatient (RCR) | payer MEDICAID | END 2017-10-22 | LOC: M OUTALCOH 13:45 | DX: F10.20 Alcohol dependence, uncomplicated (principal); F14.20 Cocaine dependence, uncomplicated; Z72.0 Tobacco use ==

== ENCOUNTER 2017-10-23 13:52 | Outpatient (RCR) | payer MEDICAID | END 2017-11-21 | LOC: M OUTALCOH 11-02 11:00 | DX: F10.20 Alcohol dependence, uncomplicated (principal); F14.20 Cocaine dependence, uncomplicated; Z72.0 Tobacco use ==

== ENCOUNTER 2017-12-03 09:21 | Outpatient (RCR) | payer MEDICAID | END 2017-12-22 | LOC: M OUTALCOH 12-10 11:00 | DX: F10.20 Alcohol dependence, uncomplicated (principal); F14.20 Cocaine dependence, uncomplicated; Z72.0 Tobacco use ==

== ENCOUNTER → 2018-01-14 | Outpatient (CLI) | payer OTHER ==
[2018-01-14 14:13] LABS: ANION GAP 8 MEQ/L (8-16); BLOOD UREA NITROGEN 9 MG/DL (7-18); CALCIUM LEVEL 8.8 MG/DL (8.5-10.1); CARBON DIOXIDE LEVEL 28 MEQ/L (21-32); CHLORIDE LEVEL 105 MEQ/L (98-107); CREATININE FOR GFR 1.16 MG/DL (0.70-1.30); GLOMERULAR FILTRATION RATE > 60.0 (>56); GLUCOSE, FASTING 152 MG/DL (70-100); POTASSIUM SERUM 4.1 MEQ/L (3.5-5.1); SODIUM LEVEL 141 MEQ/L (136-145)
== END ==
LOC: M LAB 13:19
DX: I10 Essential (primary) hypertension (principal)
CPT/HCPCS: 80048

== ENCOUNTER 2018-01-27 10:18 | Outpatient (RCR) | payer MEDICAID | END 2018-02-21 | LOC: M OUTALCOH 02-03 10:00 | DX: F10.20 Alcohol dependence, uncomplicated (principal); F14.20 Cocaine dependence, uncomplicated; Z72.0 Tobacco use ==

== ENCOUNTER 2018-03-11 04:42 | Emergency (ER) | payer OTHER, MEDICAID ==
[2018-03-11] MEDS: dexameTHASONE 20 MG/5 ML VIAL (J1100) IV (05:00)
[2018-03-11 05:09] LABS: HEMATOCRIT 40.3 % (42.0-52.0); HEMOGLOBIN 13.6 g/dl (13.5-17.5); MEAN CORPUSCULAR HEMOGLOBIN 28.1 pg (27.0-33.0); MEAN CORPUSCULAR HGB CONC 33.7 g/dl (32.0-36.5); MEAN CORPUSCULAR VOLUME 83.3 fl (80.0-96.0); PLATELET COUNT, AUTOMATED 251 10^3/uL (150-450); RED BLOOD COUNT 4.84 10^6/uL (4.30-6.10); RED CELL DISTRIBUTION WIDTH 12.3 % (11.5-14.5); WHITE BLOOD COUNT 8.4 10^3/uL (4.0-10.0)
[2018-03-11 05:14] LABS: ADD MANUAL DIFFER YES; DIFF SLIDE NUMBER 111; POSITIVE DIFF POS FLAG
[2018-03-11] MEDS: ALBUTEROL SULFATE 2.5 MG/0.5 ML INH NEB SOLN NEB (05:30)
[2018-03-11 05:38] LABS: ANION GAP 7 MEQ/L (8-16); BLOOD UREA NITROGEN 13 MG/DL (7-18); CARBON DIOXIDE LEVEL 30 MEQ/L (21-32); CHLORIDE LEVEL 102 MEQ/L (98-107); CPK CREATINE PHOSPHOKINASE 205 U/L (39-308); CREATININE FOR GFR 1.18 MG/DL (0.70-1.30); GLOMERULAR FILTRATION RATE > 60.0 (>56); GLUCOSE, FASTING 128 MG/DL (70-100); MB/CK RELATIVE INDEX 0.63 (< OR =4); POTASSIUM SERUM 4.2 MEQ/L (3.5-5.1); SODIUM LEVEL 139 MEQ/L (136-145); TROPONIN I < 0.02 NG/ML (< 0.10)
[2018-03-11 05:39] LABS: ATYPICAL LYMPH 5 % (0-5); EOSINOPHILS 4 % (0-5); LYMPHOCYTES 54 % (16-52); MONOCYTES 4 % (0-8); NEUTROPHILS 33 % (35-75); PLATELET ESTIMATE NORMAL (NORMAL)
== END 2018-03-11 06:07 | disposition home or self-care (01) ==
LOC: M ED 04:42
DX: J44.1 Chronic obstructive pulmonary disease with (acute) exacerbation (principal); E11.9 Type 2 diabetes mellitus without complications; I10 Essential (primary) hypertension; K21.9 Gastro-esophageal reflux disease without esophagitis; F25.9 Schizoaffective disorder, unspecified; G31.84 Mild cognitive impairment of uncertain or unknown etiology; F17.200 Nicotine dependence, unspecified, uncomplicated; Z87.820 Personal history of traumatic brain injury; Z79.84 Long term (current) use of oral hypoglycemic drugs; Z79.899 Other long term (current) drug therapy
CPT/HCPCS: J1100

== ENCOUNTER 2018-03-21 19:05 | Emergency (ER) | payer OTHER ==
[2018-03-21 19:44] LABS: VENOUS BASE EXCESS -2.7 (-2.0-2.0); VENOUS O2 SATURATION 97.6 % (60.0-80.0); VENOUS PARTIAL PRESSURE CO2 38.1 mmHg (38.0-50.0); VENOUS PARTIAL PRESSURE O2 99.2 mmHg (30.0-50.0); VENOUS PH 7.379 UNITS (7.330-7.430); VENOUS STANDARD HCO3 22.2 MEQ/L; VENOUS TOTAL CO2 23.2 MEQ/L (24.0-28.0)
[2018-03-21] MEDS: IPRATROPIUM 0.5MG/ALBUTEROL 2.5MG INH SOL UD 3ML (DUONEB)(J7620) NEB (19:47)
[2018-03-21 19:53] LABS: BASO % 0.4 % (0.0-1.0); EOS # 0.2 10^3/uL (0.0-0.50); EOS % 2.2 % (0.0-3.0); HEMATOCRIT 38.1 % (42.0-52.0); HEMOGLOBIN 12.9 g/dl (13.5-17.5); IMMATURE GRANULOCYTE % 0.5 % (0-3.0); LYMPH # 4.5 10^3/uL (1.5-4.5); LYMPH % 55.3 % (24.0-44.0); MEAN CORPUSCULAR HEMOGLOBIN 28.1 pg (27.0-33.0); MEAN CORPUSCULAR HGB CONC 33.9 g/dl (32.0-36.5); MONO # 0.6 10^3/uL (0.0-0.8); MONO % 7.6 % (0.0-5.0); NEUTROPHILS # 2.7 10^3/uL (1.8-7.7); PLATELET COUNT, AUTOMATED 231 10^3/uL (150-450); RED BLOOD COUNT 4.59 10^6/uL (4.30-6.10); RED CELL DISTRIBUTION WIDTH 12.4 % (11.5-14.5); WHITE BLOOD COUNT 8.1 10^3/uL (4.0-10.0)
[2018-03-21 20:05] LABS: ANION GAP 9 MEQ/L (8-16); BLOOD UREA NITROGEN 11 MG/DL (7-18); CALCIUM LEVEL 8.5 MG/DL (8.5-10.1); CARBON DIOXIDE LEVEL 27 MEQ/L (21-32); CHLORIDE LEVEL 103 MEQ/L (98-107); CREATININE FOR GFR 1.21 MG/DL (0.70-1.30); GLOMERULAR FILTRATION RATE > 60.0 (>56); GLUCOSE, FASTING 250 MG/DL (70-100); POTASSIUM SERUM 4.4 MEQ/L (3.5-5.1); SODIUM LEVEL 139 MEQ/L (136-145)
[2018-03-21 20:10] LABS: INR 0.97
== END 2018-03-21 20:53 | disposition home or self-care (01) ==
LOC: M ED 19:05
DX: J44.9 Chronic obstructive pulmonary disease, unspecified (principal); I10 Essential (primary) hypertension; K21.9 Gastro-esophageal reflux disease without esophagitis; F17.200 Nicotine dependence, unspecified, uncomplicated; Z79.899 Other long term (current) drug therapy; Z79.84 Long term (current) use of oral hypoglycemic drugs
CPT/HCPCS: 71045

== ENCOUNTER → 2018-04-21 | Outpatient (CLI) | payer OTHER | LOC: M WUC 13:58 | DX: A15.0 Tuberculosis of lung (principal) | CPT/HCPCS: 71046 ==

== ENCOUNTER → 2018-05-20 | Outpatient (REF) | payer OTHER, MEDICAID ==
[~2018-05-20] MED LIST changes: +AZIT-12 PO; +INVE1.31 IM; +INVE1.75; +LISI-538; +METF-877 PO; +OMEP10CASR PO; +PALI1TAB2 PO; +PRED10TA2 PO; +PRED20TA PO; +PROAAER10 INH; +TRAZ1TAB14 PO; +ZOFR4TAB14 PO; -ZOFR4TAB3 PO
[2018-05-20 13:05] LABS: ALT/SGPT 30 U/L (12-78); BILIRUBIN,TOTAL 0.3 MG/DL (0.2-1.0); BLOOD UREA NITROGEN 19 MG/DL (7-18); CALCIUM LEVEL 8.8 MG/DL (8.5-10.1); CARBON DIOXIDE LEVEL 26 MEQ/L (21-32); CHLORIDE LEVEL 101 MEQ/L (98-107); CHOLESTEROL LEVEL 180 MG/DL (<200); CHOLESTEROL RISK RATIO 4.615 (<5); CREATININE FOR GFR 1.41 MG/DL (0.70-1.30); GLOMERULAR FILTRATION RATE > 60.0 (>56); GLUCOSE, FASTING 203 MG/DL (70-100); HDL CHOLESTEROL 39 MG/DL (>40); LDL CHOLESTEROL 97 MG/DL (<100); NON-HDL-C 141 MG/DL; POTASSIUM SERUM 4.4 MEQ/L (3.5-5.1); SODIUM LEVEL 136 MEQ/L (136-145); TOTAL PROTEIN 7.7 GM/DL (6.4-8.2); TRIGLYCERIDES LEVEL 222 MG/DL (<150)
[2018-05-20 13:53] LABS: MAU/CREAT RATIO 38.3 MCG/MG (0.0-30.0)
== END ==
LOC: M LAB REF 11:58
PROVIDERS: ATTEND Family Medicine Addiction Medicine
DX: I10 Essential (primary) hypertension (principal); E11.9 Type 2 diabetes mellitus without complications

== ENCOUNTER → 2018-08-19 | Outpatient (REF) | payer OTHER, MEDICAID ==
[2018-08-19 11:57] LABS: ALBUMIN 3.8 GM/DL (3.2-5.2); ALT/SGPT 21 U/L (12-78); BILIRUBIN,TOTAL 0.3 MG/DL (0.2-1.0); BLOOD UREA NITROGEN 9 MG/DL (7-18); CALCIUM LEVEL 8.4 MG/DL (8.5-10.1); CARBON DIOXIDE LEVEL 30 MEQ/L (21-32); CHLORIDE LEVEL 105 MEQ/L (98-107); CHOLESTEROL LEVEL 203 MG/DL (<200); CHOLESTEROL RISK RATIO 4.319 (<5); CREATININE FOR GFR 1.16 MG/DL (0.70-1.30); GLOMERULAR FILTRATION RATE > 60.0 (>56); GLUCOSE, FASTING 130 MG/DL (70-100); HDL CHOLESTEROL 47 MG/DL (>40); LDL CHOLESTEROL 135 MG/DL (<100); NON-HDL-C 156 MG/DL; POTASSIUM SERUM 4.1 MEQ/L (3.5-5.1); SODIUM LEVEL 142 MEQ/L (136-145); TOTAL PROTEIN 7.5 GM/DL (6.4-8.2); TRIGLYCERIDES LEVEL 105 MG/DL (<150)
== END ==
LOC: M LAB REF 10:43
PROVIDERS: ATTEND Family Medicine Addiction Medicine
DX: E11.9 Type 2 diabetes mellitus without complications (principal)

== ENCOUNTER 2018-11-17 12:34 | Emergency (ER) | payer MEDICAID, OTHER ==
[~2018-11-17] VITALS: Ht 188 cm; Wt 134.1 kg
[2018-11-17 13:13] LABS: BASO % 0.5 % (0.0-1.0); EOS # 0.1 10^3/uL (0.0-0.50); EOS % 2.3 % (0.0-3.0); HEMATOCRIT 41.5 % (42.0-52.0); HEMOGLOBIN 14.5 g/dl (13.5-17.5); LYMPH # 2.7 10^3/uL (1.5-4.5); LYMPH % 47.3 % (24.0-44.0); MEAN CORPUSCULAR HEMOGLOBIN 29.1 pg (27.0-33.0); MEAN CORPUSCULAR HGB CONC 34.9 g/dl (32.0-36.5); MEAN CORPUSCULAR VOLUME 83.2 fl (80.0-96.0); MONO # 0.5 10^3/uL (0.0-0.8); MONO % 7.8 % (0.0-5.0); NEUTROPHILS # 2.4 10^3/uL (1.8-7.7); NEUTROPHILS % 41.9 % (36.0-66.0); PLATELET COUNT, AUTOMATED 233 10^3/uL (150-450); RED BLOOD COUNT 4.99 10^6/uL (4.30-6.10); WHITE BLOOD COUNT 5.8 10^3/uL (4.0-10.0)
[2018-11-17 13:45] LABS: ALBUMIN 3.9 GM/DL (3.2-5.2); ALT/SGPT 31 U/L (12-78); BILIRUBIN,DIRECT 0.1 MG/DL (0.0-0.2); BILIRUBIN,TOTAL 0.4 MG/DL (0.2-1.0); BLOOD UREA NITROGEN 16 MG/DL (7-18); CARBON DIOXIDE LEVEL 25 MEQ/L (21-32); CHLORIDE LEVEL 103 MEQ/L (98-107); CREATININE FOR GFR 1.29 MG/DL (0.70-1.30); GLOMERULAR FILTRATION RATE > 60.0 (>56); GLUCOSE, FASTING 164 MG/DL (70-100); LIPASE 162 U/L (73-393); POTASSIUM SERUM 4.1 MEQ/L (3.5-5.1); SODIUM LEVEL 136 MEQ/L (136-145); TOTAL PROTEIN 7.8 GM/DL (6.4-8.2)
[2018-11-17] MEDS ORDERED: KETOROLAC 30 MG/ML VIAL (J1885) IV ONE (15:15)
--- NOTE | 2018-11-17 15:39 | REP ---
Clinical: Left flank pain. Technique: Axial noncontrast images from the lung bases to the pubic symphysis with coronal and sagittal re-formations. Comparison: None. Findings: Evaluation of the urinary tract system demonstrates mild bilateral perinephric stranding (left greater than right) without hydroureteronephrosis or nephroureterolithiasis. Correlation with urinalysis is recommended to exclude pyelonephritis. Liver, spleen, pancreas, gallbladder, bilateral adrenal glands are normal for noncontrast evaluation. The enteric system is without obstruction or acute inflammatory process. Normal terminal ileum and appendix identified in the right lower quadrant. Pelvis demonstrates normal bladder and age appropriate prostate/seminal vesicles. Small fat containing left inguinal hernia. No ascites. No free air. No adenopathy. Abdominal aorta without aneurysm. Skeletal structures demonstrate degenerative changes including bridging osteophytes along the bilateral sacroiliac joints. Impression: 1. Mild perinephric stranding (left greater than right) without hydroureteronephrosis or nephroureterolithiasis. Correlation with urinalysis to exclude urinary tract infection/pyelonephritis may be warranted. Electronically Signed by Natalio Stern MD 11/17/2018 03:30 P
[2018-11-17] MEDS ORDERED: PYRI1TAB5 PO (15:52)
[2018-11-17] MEDS ORDERED: MACR100C43 PO (15:52)
[2018-11-17] MEDS ORDERED: PHENAZOPYRIDINE 100 MG TAB PO ONE (16:00)
[2018-11-17] MEDS ORDERED: NITROFURANTOIN (MACROBID) 100 MG CAP PO ONE (16:00)
[2018-11-17 16:42] VITALS: BP 144/93
== END 2018-11-17 16:48 | disposition home or self-care (01) ==
LOC: EDBD 12:34 → M ED 12:34
DX: R30.0 Dysuria (principal); R10.9 Unspecified abdominal pain; E11.9 Type 2 diabetes mellitus without complications; F20.9 Schizophrenia, unspecified; F31.9 Bipolar disorder, unspecified; G47.30 Sleep apnea, unspecified; I10 Essential (primary) hypertension; J44.9 Chronic obstructive pulmonary disease, unspecified; K21.9 Gastro-esophageal reflux disease without esophagitis; M54.9 Dorsalgia, unspecified; R51 Headache; Z79.51 Long term (current) use of inhaled steroids; Z79.84 Long term (current) use of oral hypoglycemic drugs; Z79.899 Other long term (current) drug therapy
CPT/HCPCS: 74176; 80048; 80076; 81001; 83690; 85025; 96374; 99284; J1885

== ENCOUNTER 2018-12-14 01:04 | Emergency (ER) | payer OTHER ==
[~2018-12-14] VITALS: Ht 188 cm; Wt 127.3 kg
[~2018-12-14 01:04] MED LIST changes: -INVE1.75; +INVE1.75 IM; +MACR100C43 PO; +PYRI1TAB5 PO
[2018-12-14 01:30] LABS: BASO % 0.2 % (0.0-1.0); EOS # 0.1 10^3/uL (0.0-0.50); EOS % 0.8 % (0.0-3.0); HEMATOCRIT 36.7 % (42.0-52.0); HEMOGLOBIN 12.4 g/dl (13.5-17.5); LYMPH % 34.3 % (24.0-44.0); MEAN CORPUSCULAR HGB CONC 33.8 g/dl (32.0-36.5); MEAN CORPUSCULAR VOLUME 85.7 fl (80.0-96.0); MONO # 0.9 10^3/uL (0.0-0.8); MONO % 9.8 % (0.0-5.0); NEUTROPHILS # 4.8 10^3/uL (1.8-7.7); NEUTROPHILS % 54.7 % (36.0-66.0); PLATELET COUNT, AUTOMATED 220 10^3/uL (150-450); RED BLOOD COUNT 4.28 10^6/uL (4.30-6.10); WHITE BLOOD COUNT 8.7 10^3/uL (4.0-10.0)
[2018-12-14 01:52] LABS: APPEARANCE, URINE CLEAR (CLEAR); BACTERIA, URINE AUTO NEGATIVE (NEGATIVE); BILIRUBIN, URINE AUTO NEGATIVE (NEGATIVE); BLOOD, URINE BLOOD NEGATIVE (NEGATIVE); COLOR, URINE YELLOW (YELLOW); GLUCOSE, URINE (UA) AUTO NEGATIVE (NEGATIVE); KETONE, URINE AUTO TRACE mg/dL (NEGATIVE); LEUKOCYTE ESTERASE, URINE AUTO NEGATIVE (NEGATIVE); MUCUS, URINE SMALL (NEGATIVE); NITRITE, URINE AUTO NEGATIVE (NEGATIVE); PROTEIN, URINE AUTO NEGATIVE (NEGATIVE); RBC, URINE AUTO 1 /HPF (0-3); SPECIFIC GRAVITY URINE AUTO 1.021 (1.002-1.035); SQUAMOUS EPITHELIAL CELL UR AU 1 /HPF (0-6); WBC, URINE AUTO 0 /HPF (0-3)
[2018-12-14 01:56] LABS: BLOOD UREA NITROGEN 6 MG/DL (7-18); CALCIUM LEVEL 8.3 MG/DL (8.5-10.1); CARBON DIOXIDE LEVEL 27 MEQ/L (21-32); CHLORIDE LEVEL 102 MEQ/L (98-107); CREATININE FOR GFR 1.01 MG/DL (0.70-1.30); GLOMERULAR FILTRATION RATE > 60.0 (>56); GLUCOSE, FASTING 127 MG/DL (70-100); POTASSIUM SERUM 3.7 MEQ/L (3.5-5.1); SODIUM LEVEL 139 MEQ/L (136-145)
[2018-12-14 02:20] LABS: ALBUMIN 3.7 GM/DL (3.2-5.2); ALT/SGPT 26 U/L (12-78); BILIRUBIN,DIRECT 0.1 MG/DL (0.0-0.2); BILIRUBIN,TOTAL 0.3 MG/DL (0.2-1.0); LIPASE 86 U/L (73-393); TOTAL PROTEIN 7.5 GM/DL (6.4-8.2)
[2018-12-14] MEDS ORDERED: KETOROLAC 30 MG/ML VIAL (J1885) As Ordered ONE (04:43)
[2018-12-14] MEDS ORDERED: KETOROLAC 30 MG/ML VIAL (J1885) IV ONE (04:45)
[2018-12-14] MEDS ORDERED: ISOVUE-370 76% 100ML VIAL (Q9967) As Ordered ONE (04:46)
[2018-12-14] MEDS ORDERED: IPRATROPIUM 0.5MG/ALBUTEROL 2.5MG INH SOL UD 3ML (DUONEB)(J7620) NEB ONE ×2 (05:45→06:30)
--- NOTE | 2018-12-14 08:16 | REPVR ---
EXAM: CT Abdomen and Pelvis With Contrast EXAM DATE/TIME: 12/14/2018 4:40 AM CLINICAL HISTORY: 53 years old, male; Abdominal pain; Flank; Other: Bilateral low; Additional info: Bilat flank, low abd pain TECHNIQUE: Imaging protocol: Axial computed tomography images of the abdomen and pelvis with intravenous contrast. Coronal and sagittal reformatted images were created and reviewed. Radiation optimization: All CT scans at this facility use at least one of these dose optimization techniques: automated exposure control; mA and/or kV adjustment per patient size (includes targeted exams where dose is matched to clinical indication); or iterative reconstruction. Contrast material: ISO; Contrast volume: 100 ml; Contrast route: AC; COMPARISON: CT ABD PELVIS W/O CONTRAST 11/17/2018 3:12 PM FINDINGS: Liver: The liver is mildly enlarged. Low-attenuation of the liver when compared with the spleen may represent an infiltration versus early phase imaging. Gallbladder and bile ducts: No calcified stones. No ductal dilation. Pancreas: Unremarkable. Spleen: Unremarkable. Adrenals: Unremarkable. Kidneys and ureters: Mild nonspecific perinephric fat stranding bilaterally. No hydronephrosis Stomach and bowel: Nonspecific nondilated fluid filled mid and distal small bowel. Appendix: Unremarkable appendix. Intraperitoneal space: No free air. No significant fluid collection. Vasculature: No abdominal aortic aneurysm. Lymph nodes: 1.3 cm nodule ventral to the pancreatic head may represent lymph node and is stable since prior. Bladder: Incompletely distended urinary bladder which limits evaluation for wall thickening. Reproductive: Unremarkable as visualized. Bones/joints: Degenerative changes. Mild multilevel degenerative disc disease with central canal and neural foraminal stenoses. Soft tissues: Tiny fat-containing umbilical hernia. IMPRESSION: 1. Mild hepatomegaly. Low-attenuation of the liver when compared with the spleen may represent fatty infiltration versus early phase imaging. 2. Nonspecific nondilated fluid filled mid and distal small bowel may represent ileus versus early enteritis changes. Electronically signed by: Debo Ash On 12/14/2018 08:16:27 AM
[2018-12-14] MEDS ORDERED: NAPR-837 PO (08:44)
[2018-12-14 08:50] VITALS: BP 160/91
== END 2018-12-14 08:58 | disposition home or self-care (01) ==
LOC: M ED 01:04
DX: R39.9 Unspecified symptoms and signs involving the genitourinary system (principal); M54.9 Dorsalgia, unspecified; R19.7 Diarrhea, unspecified; I11.0 Hypertensive heart disease with heart failure; I50.9 Heart failure, unspecified; E11.9 Type 2 diabetes mellitus without complications; J44.9 Chronic obstructive pulmonary disease, unspecified; E66.9 Obesity, unspecified; Z68.36 Body mass index [BMI] 36.0-36.9, adult; F32.9 Major depressive disorder, single episode, unspecified; F17.200 Nicotine dependence, unspecified, uncomplicated; Z87.440 Personal history of urinary (tract) infections; Z79.899 Other long term (current) drug therapy; Z79.84 Long term (current) use of oral hypoglycemic drugs
CPT/HCPCS: 74177; 80048; 80076; 81001; 83690; 85025; 94640; 96374; 99284; J1885; Q9967

== ENCOUNTER 2018-12-20 10:20 | Emergency (ER) | payer OTHER ==
[~2018-12-20] VITALS: Ht 188 cm; Wt 132.6 kg
[~2018-12-20 10:20] MED LIST changes: -LISI-538; +LISI-538 PO; +NAPR-837 PO
[2018-12-20 11:17] LABS: BASO % 0.4 % (0.0-1.0); EOS # 0.8 10^3/uL (0.0-0.50); EOS % 12.1 % (0.0-3.0); HEMATOCRIT 38.4 % (42.0-52.0); HEMOGLOBIN 12.9 g/dl (13.5-17.5); LYMPH # 3.2 10^3/uL (1.5-4.5); LYMPH % 47.6 % (24.0-44.0); MEAN CORPUSCULAR HEMOGLOBIN 28.4 pg (27.0-33.0); MEAN CORPUSCULAR HGB CONC 33.6 g/dl (32.0-36.5); MEAN CORPUSCULAR VOLUME 84.4 fl (80.0-96.0); MONO # 0.5 10^3/uL (0.0-0.8); MONO % 7.6 % (0.0-5.0); NEUTROPHILS # 2.1 10^3/uL (1.8-7.7); PLATELET COUNT, AUTOMATED 263 10^3/uL (150-450); RED BLOOD COUNT 4.55 10^6/uL (4.30-6.10); WHITE BLOOD COUNT 6.7 10^3/uL (4.0-10.0)
[2018-12-20 11:49] LABS: ALBUMIN 3.3 GM/DL (3.2-5.2); ALT/SGPT 19 U/L (12-78); BILIRUBIN,DIRECT < 0.1 MG/DL (0.0-0.2); BILIRUBIN,TOTAL 0.2 MG/DL (0.2-1.0); BLOOD UREA NITROGEN 14 MG/DL (7-18); CALCIUM LEVEL 8.3 MG/DL (8.5-10.1); CARBON DIOXIDE LEVEL 28 MEQ/L (21-32); CHLORIDE LEVEL 109 MEQ/L (98-107); CK-MB VALUE MASS 1.2 NG/ML (<3.6); CPK CREATINE PHOSPHOKINASE 156 U/L (39-308); CREATININE FOR GFR 1.08 MG/DL (0.70-1.30); GLOMERULAR FILTRATION RATE > 60.0 (>56); GLUCOSE, FASTING 140 MG/DL (70-100); MB/CK RELATIVE INDEX 0.77 (< OR =4); NT-PRO BNP 150 PG/ML (<125); POTASSIUM SERUM 3.9 MEQ/L (3.5-5.1); SODIUM LEVEL 142 MEQ/L (136-145); THYROXINE (T4) 6.6 UG/DL (4.5-12.0); TROPONIN I < 0.02 NG/ML (< 0.10)
[2018-12-20] MEDS: IPRATROPIUM 0.5MG/ALBUTEROL 2.5MG INH SOL UD 3ML (DUONEB)(J7620) NEB SCH ×3 (12:12→12:30)
[2018-12-20] MEDS ORDERED: PRED10TA2 PO (14:29)
[2018-12-20 14:46] VITALS: BP 169/77
--- NOTE | 2018-12-20 15:57 | REP ---
Clinical: Cough and dyspnea . Comparison: 04/21/2018 . Findings: The mediastinum and cardiac silhouette are stable and within normal limits for portable technique. The lung malhotra are clear without acute consolidation, effusion, or pneumothorax. Skeletal structures are intact. Impression: No acute cardiopulmonary process appreciated. Electronically Signed by Natalio Stern MD 12/20/2018 11:01 A
--- NOTE | 2018-12-20 20:17 | ECGEPIP ---
[facility] - ED Test Date: 2018-12-20 Pat Name: BRIGID FLORES Department: Room: - Gender: Male Equine Vet: ct : 1965 Requested By: Reji Cooley Order Number: [id number] Reading MD: Reji Simons Measurements Intervals [place] Rate: 86 P: 39 LA: 170 QRS: 8 QRSD: 89 T: 28 QT: 393 QTc: 472 Interpretive Statements SINUS RHYTHM POOR R WAVE PROGRESSION NONSPECIFIC T-WAVE ABNORMALITY SIMILAR TO 03/11/18 Electronically Signed on 12-20-2018 20:17:03 EDT by Reji Simons
[2019-05-26] MEDS ORDERED: TRAZ1TAB12 PO (11:00)
== END 2018-12-20 14:51 | disposition home or self-care (01) ==
LOC: M ED 10:20 → EDBD 10:20 → M ED 14:51
DX: J44.1 Chronic obstructive pulmonary disease with (acute) exacerbation (principal); I10 Essential (primary) hypertension; E78.5 Hyperlipidemia, unspecified; Z79.899 Other long term (current) drug therapy; Z79.84 Long term (current) use of oral hypoglycemic drugs; F17.210 Nicotine dependence, cigarettes, uncomplicated

== ENCOUNTER 2019-01-08 15:11 | Emergency (ER) | payer OTHER ==
[~2019-01-08] VITALS: Ht 188 cm; Wt 127.3 kg
[2019-01-08 15:29] VITALS: BP 115/64
[2019-01-08] MEDS ORDERED: LIDOCAINE 5% (LIDODERM) PATCH TD ONE (16:00)
[2019-01-08] MEDS ORDERED: KETOROLAC 30 MG/ML VIAL (J1885) IM ONE (16:00)
[2019-01-08] MEDS ORDERED: ACET-683 PO (16:28)
[2019-01-08] MEDS ORDERED: LIDO5DIS41 TD (16:28)
[2019-01-08] MEDS ORDERED: ACETAMINOPHEN 325 MG TAB PO ONE (16:30)
[2019-05-26] MEDS ORDERED: TRAZ1TAB12 PO (11:00)
== END 2019-01-08 16:44 | disposition home or self-care (01) ==
LOC: EDBD 15:11 → M ED 15:11
DX: M54.5 Low back pain (principal); E11.9 Type 2 diabetes mellitus without complications; I10 Essential (primary) hypertension; J44.9 Chronic obstructive pulmonary disease, unspecified; F31.9 Bipolar disorder, unspecified; F20.9 Schizophrenia, unspecified; K21.9 Gastro-esophageal reflux disease without esophagitis; G47.30 Sleep apnea, unspecified; Z79.899 Other long term (current) drug therapy; Z79.84 Long term (current) use of oral hypoglycemic drugs; F17.210 Nicotine dependence, cigarettes, uncomplicated
CPT/HCPCS: 81001; 96372; 99284; J1885

== ENCOUNTER 2019-02-16 08:27 | Emergency (ER) | payer OTHER ==
[~2019-02-16 08:27] MED LIST changes: +ACET-683 PO; +LIDO5DIS41 TD; +LISI-538; -LISI-538 PO
[2019-02-16] MEDS ORDERED: NS 1,000 ML IV SCH (08:31)
[2019-02-16] MEDS ORDERED: ARIP1TAB6 (08:38)
[2019-02-16] MEDS ORDERED: KETOROLAC TROMETHAMINE 10 MG TAB PO ONE (09:15)
[2019-02-16 09:19] LABS: BASO # 0.1 10^3/uL (0.0-0.2); BASO % 0.6 % (0.0-1.0); EOS # 0.3 10^3/uL (0.0-0.5); EOS % 3.5 % (0.0-3.0); HEMATOCRIT 38.9 % (42.0-52.0); HEMOGLOBIN 13.2 g/dl (13.5-17.5); MEAN CORPUSCULAR HEMOGLOBIN 29.1 pg (27.0-33.0); MEAN CORPUSCULAR HGB CONC 33.9 g/dl (32.0-36.5); MEAN CORPUSCULAR VOLUME 85.7 fl (80.0-96.0); MONO # 0.7 10^3/uL (0.0-0.8); MONO % 8.2 % (0.0-5.0); NEUTROPHILS # 3.8 10^3/uL (1.5-8.5); NEUTROPHILS % 42.5 % (36.0-66.0); PLATELET COUNT, AUTOMATED 255 10^3/uL (150-450); RED BLOOD COUNT 4.54 10^6/uL (4.30-6.10); WHITE BLOOD COUNT 8.9 10^3/uL (4.0-10.0)
[2019-02-16 09:35] LABS: ALBUMIN 3.4 GM/DL (3.2-5.2); ALT/SGPT 13 U/L (12-78); BILIRUBIN,DIRECT < 0.1 MG/DL (0.0-0.2); BILIRUBIN,TOTAL 0.3 MG/DL (0.2-1.0); LIPASE 79 U/L (73-393); TOTAL PROTEIN 6.9 GM/DL (6.4-8.2)
--- NOTE | 2019-02-16 10:12 | REP ---
Urinary tract sonogram: History: Bilateral flank pain. Comparison: Comparison CT study December 14, 2018. Findings: Scanning at the level of the urinary bladder shows no abnormality. The bladder is empty at the time of scanning. Renal cortical echogenicity pattern is normal bilaterally and contours are smooth. There is no evidence of hydronephrosis, cyst, mass, or calculus in either kidney. The right kidney measures 11.3 of 5.4 x 5 point a cm. Left renal dimensions are 11.6 x 4.6 x 5.2 cm. Impression: Normal urinary tract sonography. Electronically Signed by Bebeto Garcia MD 02/16/2019 10:05 A
[2019-02-16 10:52] VITALS: BP 147/80
[2019-02-16] MEDS ORDERED: LISINOPRIL 20 MG TAB PO ONE (11:00)
[2019-02-16 12:38] VITALS: BP 156/93
== END 2019-02-16 12:40 | disposition home or self-care (01) ==
LOC: M ED 08:27
DX: R10.9 Unspecified abdominal pain (principal); I10 Essential (primary) hypertension; E11.9 Type 2 diabetes mellitus without complications; J44.9 Chronic obstructive pulmonary disease, unspecified; F31.9 Bipolar disorder, unspecified; F20.9 Schizophrenia, unspecified; K21.9 Gastro-esophageal reflux disease without esophagitis; Z79.51 Long term (current) use of inhaled steroids; Z79.84 Long term (current) use of oral hypoglycemic drugs; Z87.820 Personal history of traumatic brain injury

== ENCOUNTER 2019-03-14 22:42 | Emergency (ER) | payer OTHER ==
[~2019-03-14] VITALS: Ht 188 cm; Wt 118.2 kg
[~2019-03-14 22:42] MED LIST changes: +ARIP1TAB6
[2019-03-14] MEDS ORDERED: KETOROLAC 30 MG/ML VIAL (J1885) IV ONE (23:15)
[2019-03-14] MEDS ORDERED: NS 1,000 ML IV ONE (23:15)
[2019-03-14] MEDS ORDERED: ONDANSETRON 4MG/2ML VIAL (J2405) IV ONE (23:15)
[2019-03-14 23:35] LABS: HEMATOCRIT 39.4 % (42.0-52.0); HEMOGLOBIN 13.4 g/dl (13.5-17.5); MEAN CORPUSCULAR HEMOGLOBIN 29.5 pg (27.0-33.0); MEAN CORPUSCULAR VOLUME 86.6 fl (80.0-96.0); PLATELET COUNT, AUTOMATED 243 10^3/uL (150-450); RED BLOOD COUNT 4.55 10^6/uL (4.30-6.10); WHITE BLOOD COUNT 8.3 10^3/uL (4.0-10.0)
[2019-03-15 00:16] LABS: ALBUMIN 3.3 GM/DL (3.2-5.2); ALT/SGPT 15 U/L (12-78); AMYLASE 77 U/L (25-115); BILIRUBIN,DIRECT < 0.1 MG/DL (0.0-0.2); BILIRUBIN,TOTAL 0.2 MG/DL (0.2-1.0); BLOOD UREA NITROGEN 12 MG/DL (7-18); CALCIUM LEVEL 8.6 MG/DL (8.5-10.1); CARBON DIOXIDE LEVEL 30 MEQ/L (21-32); CHLORIDE LEVEL 107 MEQ/L (98-107); CREATININE FOR GFR 1.32 MG/DL (0.70-1.30); GLOMERULAR FILTRATION RATE > 60.0 (>56); GLUCOSE, FASTING 99 MG/DL (70-100); LIPASE 172 U/L (73-393); POTASSIUM SERUM 4.2 MEQ/L (3.5-5.1); SODIUM LEVEL 142 MEQ/L (136-145); TOTAL PROTEIN 6.8 GM/DL (6.4-8.2)
[2019-03-15 00:29] LABS: EOSINOPHILS 7 % (0-3); LYMPHOCYTES 59 % (16-44); MONOCYTES 4 % (0-5); NEUTROPHILS 30 % (28-66)
[2019-03-15 00:30] LABS: PLATELET ESTIMATE NORMAL (NORMAL)
--- NOTE | 2019-03-15 01:01 | REPVR ---
PROCEDURE INFORMATION: Exam: CT Abdomen And Pelvis Without Contrast Exam date and time: 03/14/2019 11:11 PM Clinical history: 54 years old, male; Abdominal pain; Generalized TECHNIQUE: Imaging protocol: Computed tomography of the abdomen and pelvis without contrast. Radiation optimization: All CT scans at this facility use at least one of these dose optimization techniques: automated exposure control; mA and/or kV adjustment per patient size (includes targeted exams where dose is matched to clinical indication); or iterative reconstruction. COMPARISON: CT ABD PELVIS W/O CONTRAST 11/17/2018 3:12 PM FINDINGS: Lungs: The imaged lung bases are clear. Heart: No cardiomegaly. No pericardial effusion. Liver: Unremarkable. No liver lesion is seen. The contour of the liver is smooth. No hepatomegaly is noted. Gallbladder and bile ducts: No calcified gallstones are seen. No gallbladder wall thickening, pericholecystic fluid, or pericholecystic inflammatory changes are identified. No dilation of the intrahepatic or extrahepatic bile ducts is noted. Pancreas: Unremarkable. No ductal dilation. Spleen: Unremarkable. No splenomegaly. Adrenals: Normal. No mass. Kidneys and ureters: The kidneys are unremarkable. No renal lesion is identified. No calculi are seen in the kidneys or ureters. There is no hydronephrosis or hydroureter. Stomach and bowel: There is no evidence for a bowel obstruction, diverticulosis, diverticulitis, colitis, pneumatosis intestinalis, intussusception, volvulus, or perforated viscus. Appendix: Normal. No evidence for appendicitis. Intraperitoneal space: Unremarkable. No fluid collection. No free air. Retroperitoneal space: Unremarkable. No fluid collection. No mass. Vasculature: No abdominal aortic aneurysm. Lymph nodes: There is a nonspecific 10 mm short axis lymph node in the periportal region anterior to the head of the pancreas, which is unchanged compared to the prior CT on 11/17/2018. No other abnormally enlarged lymph nodes are noted in the abdomen or pelvis. Bladder: Unremarkable. No calculi or masses are noted in the bladder. Reproductive: Unremarkable as visualized. Bones/joints: The imaged bony structures are intact. There is no suspicious osteolytic or osteoblastic lesion. There are degenerative changes in the lower thoracic spine and lumbar spine. There is partial ankylosis of the sacroiliac joints. There is mild osteoarthritis involving the hip joints. Soft tissues: There is a small fat containing umbilical hernia, which is similar in appearance compared to the prior CT on 11/17/2018. IMPRESSION: 1. No acute findings in the abdomen or pelvis. 2. No stones in the kidneys, ureters, or urinary bladder. No hydronephrosis or hydroureter. 3. Small fat containing umbilical hernia, which is similar in appearance compared to the prior CT on 11/17/2018. Electronically signed by: Jeremy Pinto On 03/15/2019 01:01:30 AM
[2019-03-15 05:17] VITALS: BP 147/88
[2019-03-16] MEDS ORDERED: NAPR-885 (18:01)
[2019-03-16] MEDS ORDERED: PRED10TA2 PO (20:24)
== END 2019-03-15 05:41 | disposition home or self-care (01) ==
LOC: M ED 22:42
DX: R10.9 Unspecified abdominal pain (principal); E11.9 Type 2 diabetes mellitus without complications; I10 Essential (primary) hypertension; E78.5 Hyperlipidemia, unspecified; Z79.84 Long term (current) use of oral hypoglycemic drugs; Z79.51 Long term (current) use of inhaled steroids; Z79.899 Other long term (current) drug therapy
CPT/HCPCS: 74176; 80048; 80076; 81001; 82150; 83690; 85025; 96374; 96375; 99284; J1885; J2405

== ENCOUNTER 2019-03-16 16:53 | Emergency (ER) | payer OTHER ==
[~2019-03-16] VITALS: Ht 188 cm; Wt 118.2 kg
[2019-03-16] MEDS ORDERED: NAPR-885 (18:01)
[2019-03-16] MEDS ORDERED: IPRATROPIUM 0.5MG/ALBUTEROL 2.5MG INH SOL UD 3ML (DUONEB)(J7620) NEB ONE (18:15)
[2019-03-16 18:56] LABS: INFLUENZA A AMPLIFICATION NEGATIVE (NEGATIVE); INFLUENZA B AMPLIFICATION NEGATIVE (NEGATIVE)
[2019-03-16 19:12] LABS: BLOOD UREA NITROGEN 8 MG/DL (7-18); CALCIUM LEVEL 8.6 MG/DL (8.5-10.1); CARBON DIOXIDE LEVEL 23 MEQ/L (21-32); CHLORIDE LEVEL 107 MEQ/L (98-107); CREATININE FOR GFR 1.14 MG/DL (0.70-1.30); GLOMERULAR FILTRATION RATE > 60.0 (>56); GLUCOSE, FASTING 163 MG/DL (70-100); POTASSIUM SERUM 4.3 MEQ/L (3.5-5.1); SODIUM LEVEL 136 MEQ/L (136-145)
[2019-03-16 20:11] LABS: BASO % 0.5 % (0.0-1.0); EOS # 0.2 10^3/uL (0.0-0.5); HEMATOCRIT 40.7 % (42.0-52.0); HEMOGLOBIN 13.7 g/dl (13.5-17.5); LYMPH # 3.6 10^3/uL (1.5-5.0); LYMPH % 56.9 % (24.0-44.0); MEAN CORPUSCULAR HEMOGLOBIN 28.7 pg (27.0-33.0); MEAN CORPUSCULAR HGB CONC 33.7 g/dl (32.0-36.5); MEAN CORPUSCULAR VOLUME 85.3 fl (80.0-96.0); MONO # 0.5 10^3/uL (0.0-0.8); MONO % 7.1 % (0.0-5.0); NEUTROPHILS # 2.1 10^3/uL (1.5-8.5); NEUTROPHILS % 32.3 % (36.0-66.0); PLATELET COUNT, AUTOMATED 257 10^3/uL (150-450); RED BLOOD COUNT 4.77 10^6/uL (4.30-6.10); WHITE BLOOD COUNT 6.3 10^3/uL (4.0-10.0)
[2019-03-16] MEDS ORDERED: PRED10TA2 PO (20:24)
[2019-03-16 20:39] VITALS: BP 118/91
== END 2019-03-16 21:06 | disposition home or self-care (01) ==
LOC: M ED 16:53
DX: J06.9 Acute upper respiratory infection, unspecified (principal); B34.9 Viral infection, unspecified; E11.9 Type 2 diabetes mellitus without complications; I10 Essential (primary) hypertension; J44.9 Chronic obstructive pulmonary disease, unspecified; K21.9 Gastro-esophageal reflux disease without esophagitis; G47.30 Sleep apnea, unspecified; F31.0 Bipolar disorder, current episode hypomanic; F20.9 Schizophrenia, unspecified; F41.9 Anxiety disorder, unspecified; F17.210 Nicotine dependence, cigarettes, uncomplicated; Z79.84 Long term (current) use of oral hypoglycemic drugs; Z79.899 Other long term (current) drug therapy

== ENCOUNTER 2019-03-25 17:39 | Emergency (ER) | payer OTHER ==
[~2019-03-25] VITALS: Ht 188 cm; Wt 126.8 kg
[~2019-03-25 17:39] MED LIST changes: +NAPR-885
[2019-03-25 17:50] VITALS: BP 176/85
[2019-03-25] MEDS ORDERED: NAPR-837 PO (18:18)
== END 2019-03-25 19:25 | disposition home or self-care (01) ==
LOC: M ED 17:39 → EDBD 17:39 → M ED 19:25
DX: G89.29 Other chronic pain (principal); M54.5 Low back pain; I50.9 Heart failure, unspecified; E11.9 Type 2 diabetes mellitus without complications; I10 Essential (primary) hypertension; J44.9 Chronic obstructive pulmonary disease, unspecified; F32.9 Major depressive disorder, single episode, unspecified; F10.10 Alcohol abuse, uncomplicated; F12.10 Cannabis abuse, uncomplicated; Z79.84 Long term (current) use of oral hypoglycemic drugs; Z79.899 Other long term (current) drug therapy

== ENCOUNTER → 2019-03-31 | Outpatient (REF) | payer OTHER ==
[2019-03-31 17:16] LABS: BASO # 0.1 10^3/uL (0.0-0.2); BASO % 0.7 % (0.0-1.0); EOS # 0.3 10^3/uL (0.0-0.5); EOS % 4.6 % (0.0-3.0); HEMATOCRIT 43.6 % (42.0-52.0); HEMOGLOBIN 14.7 g/dl (13.5-17.5); LYMPH # 3.8 10^3/uL (1.5-5.0); LYMPH % 55.3 % (24.0-44.0); MEAN CORPUSCULAR HEMOGLOBIN 29.1 pg (27.0-33.0); MEAN CORPUSCULAR HGB CONC 33.7 g/dl (32.0-36.5); MEAN CORPUSCULAR VOLUME 86.2 fl (80.0-96.0); MONO # 0.4 10^3/uL (0.0-0.8); MONO % 6.2 % (0.0-5.0); NEUTROPHILS # 2.3 10^3/uL (1.5-8.5); NEUTROPHILS % 33.1 % (36.0-66.0); PLATELET COUNT, AUTOMATED 255 10^3/uL (150-450); RED BLOOD COUNT 5.06 10^6/uL (4.30-6.10); WHITE BLOOD COUNT 6.9 10^3/uL (4.0-10.0)
[2019-03-31 17:23] LABS: HEMOGLOBIN A1c 6.3 %
[2019-03-31 17:32] LABS: ALBUMIN 3.8 GM/DL (3.2-5.2); ALT/SGPT 20 U/L (12-78); BILIRUBIN,TOTAL 0.2 MG/DL (0.2-1.0); BLOOD UREA NITROGEN 9 MG/DL (7-18); CALCIUM LEVEL 8.9 MG/DL (8.5-10.1); CARBON DIOXIDE LEVEL 31 MEQ/L (21-32); CHLORIDE LEVEL 104 MEQ/L (98-107); CHOLESTEROL LEVEL 223 MG/DL (<200); CHOLESTEROL RISK RATIO 4.372 (<5); CREATININE FOR GFR 1.12 MG/DL (0.70-1.30); GLOMERULAR FILTRATION RATE > 60.0 (>56); GLUCOSE, FASTING 128 MG/DL (70-100); HDL CHOLESTEROL 51 MG/DL (>40); LDL CHOLESTEROL 120 MG/DL (<100); NON-HDL-C 172 MG/DL; POTASSIUM SERUM 3.8 MEQ/L (3.5-5.1); SODIUM LEVEL 139 MEQ/L (136-145); TOTAL 25(OH) VITAMIN D 18.9 NG/ML (30.0-100.0); TOTAL PROTEIN 7.5 GM/DL (6.4-8.2); TRIGLYCERIDES LEVEL 260 MG/DL (<150)
== END ==
LOC: M LAB REF 16:07
PROVIDERS: ATTEND Nurse Practitioner Family
DX: I10 Essential (primary) hypertension (principal); E78.5 Hyperlipidemia, unspecified; E11.9 Type 2 diabetes mellitus without complications

== ENCOUNTER 2019-04-02 04:32 | Emergency (ER) | payer OTHER ==
[~2019-04-02] VITALS: Ht 188 cm; Wt 127.3 kg
[2019-04-02 05:35] LABS: BASO % 0.5 % (0.0-1.0); EOS # 0.2 10^3/uL (0.0-0.5); EOS % 1.8 % (0.0-3.0); HEMATOCRIT 41.7 % (42.0-52.0); HEMOGLOBIN 14.1 g/dl (13.5-17.5); LYMPH # 3.3 10^3/uL (1.5-5.0); LYMPH % 40.9 % (24.0-44.0); MEAN CORPUSCULAR HEMOGLOBIN 28.8 pg (27.0-33.0); MEAN CORPUSCULAR HGB CONC 33.8 g/dl (32.0-36.5); MEAN CORPUSCULAR VOLUME 85.3 fl (80.0-96.0); MONO # 0.5 10^3/uL (0.0-0.8); MONO % 6.1 % (0.0-5.0); NEUTROPHILS # 4.1 10^3/uL (1.5-8.5); NEUTROPHILS % 50.5 % (36.0-66.0); PLATELET COUNT, AUTOMATED 220 10^3/uL (150-450); RED BLOOD COUNT 4.89 10^6/uL (4.30-6.10); WHITE BLOOD COUNT 8.2 10^3/uL (4.0-10.0)
[2019-04-02 06:07] LABS: ALBUMIN 3.7 GM/DL (3.2-5.2); ALT/SGPT 15 U/L (12-78); BILIRUBIN,DIRECT < 0.1 MG/DL (0.0-0.2); BILIRUBIN,TOTAL 0.3 MG/DL (0.2-1.0); BLOOD UREA NITROGEN 10 MG/DL (7-18); CALCIUM LEVEL 8.7 MG/DL (8.5-10.1); CARBON DIOXIDE LEVEL 27 MEQ/L (21-32); CHLORIDE LEVEL 104 MEQ/L (98-107); CREATININE FOR GFR 1.31 MG/DL (0.70-1.30); GLOMERULAR FILTRATION RATE > 60.0 (>56); GLUCOSE, FASTING 126 MG/DL (70-100); LIPASE 86 U/L (73-393); POTASSIUM SERUM 3.8 MEQ/L (3.5-5.1); SODIUM LEVEL 138 MEQ/L (136-145); TOTAL PROTEIN 7.1 GM/DL (6.4-8.2)
--- NOTE | 2019-04-02 06:31 | REPVR ---
PROCEDURE INFORMATION: Exam: CT Abdomen And Pelvis Without Contrast Exam date and time: 04/02/2019 5:19 AM Clinical history: 54 years old, male; Abdominal pain; Flank; Right; Additional info: R colic TECHNIQUE: Imaging protocol: Computed tomography of the abdomen and pelvis without contrast. Radiation optimization: All CT scans at this facility use at least one of these dose optimization techniques: automated exposure control; mA and/or kV adjustment per patient size (includes targeted exams where dose is matched to clinical indication); or iterative reconstruction. COMPARISON: CT ABD PELVIS W/O CONTRAST 03/14/2019 11:37 PM FINDINGS: Lungs: There is mild left basilar atelectatic changes. Liver: Normal. No mass. Gallbladder and bile ducts: Normal. No calcified stones. No ductal dilation. Pancreas: Normal. No ductal dilation. Spleen: Normal. No splenomegaly. Adrenals: Normal. No mass. Kidneys and ureters: Normal. No hydronephrosis. Stomach and bowel: Unremarkable. No obstruction. No mucosal thickening. Appendix: No evidence of appendicitis. Intraperitoneal space: Unremarkable. No free air. No significant fluid collection. Vasculature: Unremarkable. No abdominal aortic aneurysm. Lymph nodes: There are nonspecific shotty bilateral inguinal lymph nodes. Bladder: Unremarkable as visualized. Reproductive: Unremarkable as visualized. Bones/joints: Bulky anterior thoracic and less bulky anterior lumbar spine osteophytes seen. Soft tissues: There is small left inguinal fat containing hernia. IMPRESSION: 1. No CT evidence of nephrolithiasis or hydronephrosis. 2. Small left inguinal fat containing hernia. 3. Nonspecific shotty bilateral lymph nodes measuring up to 1 cm in short axis. These could be reactive. Follow up is suggested. Electronically signed by: Mike Burt On 04/02/2019 06:31:21 AM
[2019-04-02 06:57] VITALS: BP 135/78
--- NOTE | 2019-04-02 07:22 | ED PDOC ---
Post-Departure Follow-Up radiology report faxed to Magui Chung MD Apr 02, 2019 07:22
== END 2019-04-02 07:09 | disposition home or self-care (01) ==
LOC: M ED 04:32
DX: M54.9 Dorsalgia, unspecified (principal); E11.9 Type 2 diabetes mellitus without complications; I10 Essential (primary) hypertension; K21.9 Gastro-esophageal reflux disease without esophagitis; F25.9 Schizoaffective disorder, unspecified; Z87.820 Personal history of traumatic brain injury; Z79.84 Long term (current) use of oral hypoglycemic drugs; Z79.51 Long term (current) use of inhaled steroids

== ENCOUNTER 2019-04-04 18:21 | Emergency (ER) | payer OTHER ==
[~2019-04-04] VITALS: Ht 188 cm; Wt 127.3 kg
[2019-04-04] MEDS ORDERED: IPRATROPIUM 0.5MG/ALBUTEROL 2.5MG INH SOL UD 3ML (DUONEB)(J7620) NEB ONE (18:45)
[2019-04-04] MEDS ORDERED: ASPIRIN 81 MG CHEW TABLET PO ONE (18:45)
[2019-04-04 19:16] LABS: BASO % 0.3 % (0.0-1.0); EOS # 0.2 10^3/uL (0.0-0.5); EOS % 3.2 % (0.0-3.0); HEMATOCRIT 44.8 % (42.0-52.0); HEMOGLOBIN 14.7 g/dl (13.5-17.5); LYMPH # 3.4 10^3/uL (1.5-5.0); LYMPH % 53.9 % (24.0-44.0); MEAN CORPUSCULAR HEMOGLOBIN 28.5 pg (27.0-33.0); MEAN CORPUSCULAR HGB CONC 32.8 g/dl (32.0-36.5); MEAN CORPUSCULAR VOLUME 86.8 fl (80.0-96.0); MONO # 0.4 10^3/uL (0.0-0.8); MONO % 5.7 % (0.0-5.0); NEUTROPHILS # 2.3 10^3/uL (1.5-8.5); NEUTROPHILS % 36.7 % (36.0-66.0); PLATELET COUNT, AUTOMATED 214 10^3/uL (150-450); RED BLOOD COUNT 5.16 10^6/uL (4.30-6.10); WHITE BLOOD COUNT 6.3 10^3/uL (4.0-10.0)
[2019-04-04 19:38] LABS: BLOOD UREA NITROGEN 9 MG/DL (7-18); CALCIUM LEVEL 8.7 MG/DL (8.5-10.1); CARBON DIOXIDE LEVEL 31 MEQ/L (21-32); CHLORIDE LEVEL 102 MEQ/L (98-107); CREATININE FOR GFR 1.28 MG/DL (0.70-1.30); GLOMERULAR FILTRATION RATE > 60.0 (>56); GLUCOSE, FASTING 157 MG/DL (70-100); POTASSIUM SERUM 4.1 MEQ/L (3.5-5.1); SODIUM LEVEL 137 MEQ/L (136-145)
--- NOTE | 2019-04-04 20:06 | REP ---
Two-view chest: 04/04/2019. Indication: Dyspnea. Comparison: 12/20/2018. Findings: The lungs are clear. There is no pleural effusion or pneumothorax. The cardiac silhouette is borderline enlarged. Impression: No acute cardiopulmonary process. Electronically Signed by Raghavendra Davila DO 04/04/2019 07:59 P
[2019-04-04] MEDS ORDERED: ALBUTEROL 90 MCG/ACT 8GM HFA INHALER INH ONE (20:15)
[2019-04-04 20:46] VITALS: BP 141/88
== END 2019-04-04 20:48 | disposition home or self-care (01) ==
LOC: M ED 18:21 → EDBD 18:21 → M ED 20:48
DX: J45.901 Unspecified asthma with (acute) exacerbation (principal); E11.9 Type 2 diabetes mellitus without complications; I10 Essential (primary) hypertension; J44.9 Chronic obstructive pulmonary disease, unspecified; F17.210 Nicotine dependence, cigarettes, uncomplicated; Z79.51 Long term (current) use of inhaled steroids; Z79.83 Long term (current) use of bisphosphonates; Z79.84 Long term (current) use of oral hypoglycemic drugs; Z79.899 Other long term (current) drug therapy

== ENCOUNTER 2019-04-07 10:12 | Emergency (ER) | payer OTHER ==
[2019-04-07 11:27] LABS: BASO % 0.4 % (0.0-1.0); EOS # 0.1 10^3/uL (0.0-0.5); EOS % 1.7 % (0.0-3.0); HEMATOCRIT 42.7 % (42.0-52.0); LYMPH # 3.7 10^3/uL (1.5-5.0); LYMPH % 48.9 % (24.0-44.0); MEAN CORPUSCULAR HEMOGLOBIN 28.3 pg (27.0-33.0); MEAN CORPUSCULAR HGB CONC 32.8 g/dl (32.0-36.5); MEAN CORPUSCULAR VOLUME 86.3 fl (80.0-96.0); MONO # 0.6 10^3/uL (0.0-0.8); NEUTROPHILS % 40.9 % (36.0-66.0); PLATELET COUNT, AUTOMATED 205 10^3/uL (150-450); RED BLOOD COUNT 4.95 10^6/uL (4.30-6.10); WHITE BLOOD COUNT 7.5 10^3/uL (4.0-10.0)
[2019-04-07] MEDS ORDERED: BACT800T5 PO (13:18)
[2019-04-07] MEDS ORDERED: KETOROLAC 60 MG/2 ML VIAL (J1885) IM ONE (13:30)
[2019-04-07 13:45] VITALS: BP 185/93
== END 2019-04-07 13:49 | disposition home or self-care (01) ==
LOC: M ED 10:12 → EDBD 10:12 → M ED 13:49
DX: N30.90 Cystitis, unspecified without hematuria (principal); E11.9 Type 2 diabetes mellitus without complications; I10 Essential (primary) hypertension; K21.9 Gastro-esophageal reflux disease without esophagitis; F20.9 Schizophrenia, unspecified; F31.9 Bipolar disorder, unspecified; J44.9 Chronic obstructive pulmonary disease, unspecified; Z87.820 Personal history of traumatic brain injury; F17.210 Nicotine dependence, cigarettes, uncomplicated; Z79.51 Long term (current) use of inhaled steroids; Z79.83 Long term (current) use of bisphosphonates; Z79.899 Other long term (current) drug therapy
CPT/HCPCS: 81001; 85025; 87086; 96372; 99284; J1885

== ENCOUNTER 2019-04-14 02:06 | Emergency (ER) | payer OTHER ==
[~2019-04-14] VITALS: Ht 188 cm; Wt 127.3 kg
[~2019-04-14 02:06] MED LIST changes: +BACT800T5 PO; -LISI-538; +LISI-538 PO
--- NOTE | 2019-04-14 03:24 | REPVR ---
PROCEDURE INFORMATION: Exam: CT Abdomen And Pelvis Without Contrast Exam date and time: 04/14/2019 2:34 AM Age: 54 years old Clinical history: Abdominal pain; Flank; Other: Bilat; Additional info: Flank pain TECHNIQUE: Imaging protocol: Computed tomography of the abdomen and pelvis without contrast. Radiation optimization: All CT scans at this facility use at least one of these dose optimization techniques: automated exposure control; mA and/or kV adjustment per patient size (includes targeted exams where dose is matched to clinical indication); or iterative reconstruction. COMPARISON: CT ABD PELVIS W/O CONTRAST 04/02/2019 5:31 AM FINDINGS: Lungs: Mild bibasilar atelectasis. Liver: Normal. No mass. Gallbladder and bile ducts: Normal. No calcified stones. No ductal dilation. Pancreas: Mild atrophy of the pancreas. Spleen: Normal. No splenomegaly. Adrenals: Normal. No mass. Kidneys and ureters: Normal. No hydronephrosis. Stomach and bowel: Unremarkable. No obstruction. No mucosal thickening. Appendix: Normal appendix. Intraperitoneal space: Unremarkable. No free air. No significant fluid collection. Vasculature: Unremarkable. No abdominal aortic aneurysm. Lymph nodes: Unremarkable. No enlarged lymph nodes. Bladder: Urinary bladder is not well-distended and wall appears to be thickened likely secondary to nondistention. Reproductive: Unremarkable as visualized. Bones/joints: Diffuse demineralization of the bones with degenerative changes. Soft tissues: Small fat-containing inguinal hernia. IMPRESSION: No acute finding. Electronically signed by: Dolores Lora On 04/14/2019 03:24:01 AM
[2019-04-14] MEDS ORDERED: KETOROLAC 60 MG/2 ML VIAL (J1885) IM ONE (03:45)
[2019-04-14 04:00] VITALS: BP 119/72
== END 2019-04-14 04:21 | disposition home or self-care (01) ==
LOC: M ED 02:06
DX: G89.29 Other chronic pain (principal); M54.5 Low back pain; J98.11 Atelectasis; J44.9 Chronic obstructive pulmonary disease, unspecified; F25.9 Schizoaffective disorder, unspecified; Z79.51 Long term (current) use of inhaled steroids; Z79.84 Long term (current) use of oral hypoglycemic drugs; Z79.899 Other long term (current) drug therapy
CPT/HCPCS: 74176; 96372; 99284; J1885

== ENCOUNTER 2019-04-17 09:21 | Emergency (ER) | payer OTHER ==
[~2019-04-17] VITALS: Ht 188 cm; Wt 127.3 kg
[2019-04-17 09:53] LABS: HEMATOCRIT 38.3 % (42.0-52.0); HEMOGLOBIN 12.8 g/dl (13.5-17.5); MEAN CORPUSCULAR HEMOGLOBIN 28.5 pg (27.0-33.0); MEAN CORPUSCULAR HGB CONC 33.4 g/dl (32.0-36.5); MEAN CORPUSCULAR VOLUME 85.3 fl (80.0-96.0); PLATELET COUNT, AUTOMATED 215 10^3/uL (150-450); RED BLOOD COUNT 4.49 10^6/uL (4.30-6.10); WHITE BLOOD COUNT 7.3 10^3/uL (4.0-10.0)
[2019-04-17] MEDS ORDERED: MORPHINE 2 MG/ML 1ML VIAL (J2270) IV ONE (10:00)
--- NOTE | 2019-04-17 10:46 | REP ---
REASON: Flank pain. COMPARISON: Multiple the latest 04/14/2019 also without contrast. The prior exam is normal. There is no change in the lung bases. Limited evaluation of the solid intra-abdominal organs and gallbladder show no changes. Limited evaluation of the pancreas, adrenal glands, and kidneys show no changes. There is no evidence of nephroureterolithiasis, hydronephrosis, or hydroureter. There are no urinary bladder calcifications. Limited evaluation of the bowel loops and their mesenteries show no gross abnormalities or significant changes from the prior exam. Limited evaluation of the abdominal aorta and para-aortic region shows no abnormalities or significant changes from the prior exam. No free fluid or free air is seen in the abdomen or pelvis. There is no evidence of an intra-abdominal or intrapelvic mass or adenopathy. Bone window technique through the examination shows no change from the prior exam. IMPRESSION: CT findings are within normal limits and essentially unchanged from the prior exam. Electronically Signed by Jadiel Mcdonald DO 04/17/2019 11:43 A
[2019-04-17 11:00] LABS: BASO % 0.6 % (0.0-1.0); EOS # 0.2 10^3/uL (0.0-0.5); EOS % 2.2 % (0.0-3.0); LYMPH # 3.6 10^3/uL (1.5-5.0); LYMPH % 50.3 % (24.0-44.0); MONO # 0.5 10^3/uL (0.0-0.8); MONO % 6.9 % (0.0-5.0); NEUTROPHILS # 2.8 10^3/uL (1.5-8.5); NEUTROPHILS % 39.9 % (36.0-66.0)
[2019-04-17 11:07] LABS: ALBUMIN 3.7 GM/DL (3.2-5.2); ALT/SGPT 18 U/L (12-78); BILIRUBIN,DIRECT < 0.1 MG/DL (0.0-0.2); BILIRUBIN,TOTAL 0.3 MG/DL (0.2-1.0); LIPASE 99 U/L (73-393); TOTAL PROTEIN 6.9 GM/DL (6.4-8.2)
[2019-04-17] MEDS ORDERED: NS 1,000 ML IV ONE (11:30)
[2019-04-17 13:10] VITALS: BP 139/84
== END 2019-04-17 13:14 | disposition home or self-care (01) ==
LOC: M ED 09:21 → EDBD 09:21 → M ED 13:14
DX: M54.5 Low back pain (principal); E11.9 Type 2 diabetes mellitus without complications; I10 Essential (primary) hypertension; J44.9 Chronic obstructive pulmonary disease, unspecified; G47.30 Sleep apnea, unspecified; Z87.440 Personal history of urinary (tract) infections; F17.210 Nicotine dependence, cigarettes, uncomplicated; Z79.84 Long term (current) use of oral hypoglycemic drugs; Z79.899 Other long term (current) drug therapy
CPT/HCPCS: 74176; 80047; 80076; 81001; 83605; 83690; 85027; 87040; 93041; 96361; 96374; 99284; J2270

== ENCOUNTER 2019-04-22 20:53 | Emergency (ER) | payer OTHER ==
[2019-04-22] MEDS ORDERED: methylPREDNISolone INJ 125 MG/2 ML VIAL (J2930) IM ONE (21:45)
[2019-04-22] MEDS ORDERED: IPRATROPIUM 0.5MG/ALBUTEROL 2.5MG INH SOL UD 3ML (DUONEB)(J7620) NEB ONE (21:45)
[2019-04-22] MEDS ORDERED: PRED20TA PO (22:51)
[2019-04-22 23:04] VITALS: BP 148/82
--- NOTE | 2019-04-23 05:34 | REP ---
Clinical: Dyspnea . Comparison: 04/04/2019 . Technique: PA and lateral. Findings: The mediastinum and cardiac silhouette are normal. The lung malhotra are clear and without acute consolidation, effusion, or pneumothorax. The skeletal structures are intact and normal. Impression: 1. No acute cardiopulmonary process. Electronically Signed by Natalio Stern MD 04/23/2019 05:25 A
== END 2019-04-22 23:05 | disposition home or self-care (01) ==
LOC: M ED 20:53
DX: J45.901 Unspecified asthma with (acute) exacerbation (principal); I10 Essential (primary) hypertension; E11.9 Type 2 diabetes mellitus without complications; M54.9 Dorsalgia, unspecified; F17.218 Nicotine dependence, cigarettes, with other nicotine-induced disorders
CPT/HCPCS: 71046; 94640; 96372; 99284; J2930

== ENCOUNTER 2019-04-24 09:47 | Emergency (ER) | payer OTHER ==
[2019-04-24 09:50] VITALS: BP 150/100
--- NOTE | 2019-04-24 10:29 | REP ---
Clinical: Cough and dyspnea . Comparison: 04/22/2019 . Technique: PA and lateral. Findings: The mediastinum and cardiac silhouette are normal. No acute consolidation, effusion, or pneumothorax. Subtle increased markings may reflect bronchitis. The skeletal structures are intact and normal. Impression: 1. Possible bronchitis. No focal consolidation or effusion. Electronically Signed by Natalio Stern MD 04/24/2019 10:20 A
[2019-04-24] MEDS ORDERED: DOXY100C37 PO (10:35)
[2019-04-24] MEDS ORDERED: DOXYCYCLINE HYCLATE 100 MG TAB PO ONE (10:45)
== END 2019-04-24 10:48 | disposition home or self-care (01) ==
LOC: M ED 09:47 → EDBD 09:47 → M ED 10:48
DX: J40 Bronchitis, not specified as acute or chronic (principal); E11.9 Type 2 diabetes mellitus without complications; I10 Essential (primary) hypertension; F20.9 Schizophrenia, unspecified; Z79.899 Other long term (current) drug therapy; F17.210 Nicotine dependence, cigarettes, uncomplicated

== ENCOUNTER 2019-04-26 10:53 | Emergency (ER) | payer OTHER ==
[~2019-04-26] VITALS: Ht 188 cm; Wt 127.3 kg
[~2019-04-26 10:53] MED LIST changes: +DOXY100C37 PO
[2019-04-26] MEDS: IPRATROPIUM 0.5MG/ALBUTEROL 2.5MG INH SOL UD 3ML (DUONEB)(J7620) NEB PRN ×3 (12:56→14:11)
[2019-04-26 13:00] LABS: BASO % 0.4 % (0.0-1.0); EOS # 0.1 10^3/uL (0.0-0.5); EOS % 1.3 % (0.0-3.0); HEMATOCRIT 40.8 % (42.0-52.0); HEMOGLOBIN 13.7 g/dl (13.5-17.5); LYMPH # 1.7 10^3/uL (1.5-5.0); LYMPH % 23.8 % (24.0-44.0); MEAN CORPUSCULAR HEMOGLOBIN 28.5 pg (27.0-33.0); MEAN CORPUSCULAR HGB CONC 33.6 g/dl (32.0-36.5); MONO # 0.3 10^3/uL (0.0-0.8); MONO % 3.7 % (0.0-5.0); NEUTROPHILS % 70.7 % (36.0-66.0); PLATELET COUNT, AUTOMATED 249 10^3/uL (150-450); WHITE BLOOD COUNT 7.1 10^3/uL (4.0-10.0)
[2019-04-26 13:34] LABS: BLOOD UREA NITROGEN 7 MG/DL (7-18); CALCIUM LEVEL 8.7 MG/DL (8.5-10.1); CARBON DIOXIDE LEVEL 31 MEQ/L (21-32); CHLORIDE LEVEL 105 MEQ/L (98-107); CK-MB VALUE MASS < 1.0 NG/ML (<3.6); CPK CREATINE PHOSPHOKINASE 102 U/L (39-308); CREATININE FOR GFR 1.05 MG/DL (0.70-1.30); FREE T4 1.11 NG/DL (0.76-1.46); GLOMERULAR FILTRATION RATE > 60.0 (>56); GLUCOSE, FASTING 164 MG/DL (70-100); MB/CK RELATIVE INDEX 0.98 (< OR =4); SODIUM LEVEL 141 MEQ/L (136-145); TROPONIN I < 0.02 NG/ML (< 0.10)
--- NOTE | 2019-04-26 14:13 | REP ---
CHEST, TWO VIEWS: Two views of the chest are performed and compared with prior study of 04/24/2019. There is no evidence of acute infiltrate. Lungs are clear. Heart is normal in size. Mediastinal silhouette is unchanged. There are degenerative changes of the spine. IMPRESSION: No acute infiltrate. Electronically Signed by Parish Huizar MD 04/26/2019 04:58 P
[2019-04-26 14:53] VITALS: O2SAT 96
[2019-04-26] MEDS ORDERED: VENTAER INH (15:32)
[2019-04-26] MEDS ORDERED: PRED20TA PO (15:33)
[2019-04-26 15:44] VITALS: BP 181/92
--- NOTE | 2019-04-26 17:18 | ECGEPIP ---
[facility] - ED Test Date: 2019-04-26 Pat Name: BRIGID FLORES Department: Room: - Gender: Male Sexual Assault Nurse: roel : 1965 Requested By: CELESTE Looney Order Number: [id number] Reading MD: Magui Parnell Measurements Intervals [place] Rate: 67 P: 33 MO: 203 QRS: -3 QRSD: 82 T: -15 QT: 405 QTc: 430 Interpretive Statements SINUS RHYTHM baseline artifact may affect interpretation MINIMAL VOLTAGE CRITERIA FOR LVH, CONSIDER NORMAL VARIANT DELAYED R PROGRESSION DECREASED RATE 12/20/18 Electronically Signed on 04-26-2019 17:18:00 EST by Magui Parnell
== END 2019-04-26 15:46 | disposition home or self-care (01) ==
LOC: M ED 10:53 → EDBD 10:53 → M ED 15:46
DX: J44.1 Chronic obstructive pulmonary disease with (acute) exacerbation (principal); I50.20 Unspecified systolic (congestive) heart failure; E11.9 Type 2 diabetes mellitus without complications; E66.9 Obesity, unspecified; F33.9 Major depressive disorder, recurrent, unspecified; F17.210 Nicotine dependence, cigarettes, uncomplicated; Z79.51 Long term (current) use of inhaled steroids; Z79.83 Long term (current) use of bisphosphonates; Z79.84 Long term (current) use of oral hypoglycemic drugs; Z79.899 Other long term (current) drug therapy

== ENCOUNTER 2019-05-04 15:00 | Inpatient (IN) | payer MEDICAID, OTHER ==
[~2019-05-04] VITALS: Ht 188 cm; Wt 118.8 kg
[~2019-05-04 15:00] MED LIST changes: +VENTAER INH
[2019-05-04] MEDS ORDERED: INVE1.75 (15:44)
[2019-05-04 17:05] LABS: BASO # 0.1 10^3/uL (0.0-0.2); BASO % 0.4 % (0.0-1.0); EOS # 0.1 10^3/uL (0.0-0.5); EOS % 0.8 % (0.0-3.0); HEMATOCRIT 42.2 % (42.0-52.0); HEMOGLOBIN 14.2 g/dl (13.5-17.5); LYMPH # 4.1 10^3/uL (1.5-5.0); LYMPH % 35.8 % (24.0-44.0); MEAN CORPUSCULAR HEMOGLOBIN 27.8 pg (27.0-33.0); MEAN CORPUSCULAR HGB CONC 33.6 g/dl (32.0-36.5); MEAN CORPUSCULAR VOLUME 82.7 fl (80.0-96.0); MONO % 8.8 % (0.0-5.0); NEUTROPHILS # 6.2 10^3/uL (1.5-8.5); PLATELET COUNT, AUTOMATED 253 10^3/uL (150-450); WHITE BLOOD COUNT 11.4 10^3/uL (4.0-10.0)
--- NOTE | 2019-05-04 17:06 | REP ---
Two-view chest: 05/04/2019. Indication: Dyspnea. Comparison: 04/26/2019. Findings: The lungs are clear. There is no pleural effusion or pneumothorax. No significant cardiomediastinal pathology is detected. Gaseous distension of the splenic flexure and descending colon without air fluid levels is noted. There is elevation of the left hemidiaphragm. Impression: No acute cardiopulmonary process. Distended colonic loops without air fluid levels. Please correlate. Electronically Signed by Raghavendra Davila DO 05/04/2019 04:57 P
[2019-05-04 17:38] LABS: AMPHETAMINES LEVEL URINE POSITIVE (NEGATIVE); BARBITURATES URINE NEGATIVE (NEGATIVE)
[2019-05-04 17:39] LABS: BENZODIAZEPINES URINE NEGATIVE (NEGATIVE)
[2019-05-04 17:40] LABS: CANNABINOIDS URINE POSITIVE (NEGATIVE); COCAINE METABOLITE URINE NEGATIVE (NEGATIVE); METHADONE URINE NEGATIVE (NEGATIVE); OPIATES URINE NEGATIVE (NEGATIVE); PHENCYCLIDINE URINE NEGATIVE (NEGATIVE)
[2019-05-04 17:43] LABS: BLOOD UREA NITROGEN 9 MG/DL (7-18); GLUCOSE, FASTING 122 MG/DL (70-100)
[2019-05-04 17:44] LABS: CARBON DIOXIDE LEVEL 28 MEQ/L (21-32); CHLORIDE LEVEL 102 MEQ/L (98-107); CREATININE FOR GFR 1.31 MG/DL (0.70-1.30); GLOMERULAR FILTRATION RATE > 60.0 (>56); POTASSIUM SERUM 3.5 MEQ/L (3.5-5.1); SODIUM LEVEL 136 MEQ/L (136-145)
[2019-05-04 17:46] LABS: CALCIUM LEVEL 9.1 MG/DL (8.5-10.1)
[2019-05-04 17:47] LABS: ACETAMINOPHEN LEVEL < 2.0 UG/ML (10.0-30.0); ALBUMIN 4.2 GM/DL (3.2-5.2); ALT/SGPT 25 U/L (12-78); BILIRUBIN,DIRECT 0.2 MG/DL (0.0-0.2); BILIRUBIN,TOTAL 0.8 MG/DL (0.2-1.0); ETHYL ALCOHOL (ETHANOL) < 0.003 % (0.000-0.010); SALICYLATE LEVEL 2.1 MG/DL (5.0-30.0); TOTAL PROTEIN 7.5 GM/DL (6.4-8.2)
[2019-05-04] MEDS ORDERED: ISOVUE-370 76% 100ML VIAL (Q9967) As Ordered ONE (18:34)
--- NOTE | 2019-05-04 19:31 | REP ---
KUB ABDOMEN AND PELVIS: Two KUB films of abdomen and pelvis performed. There is moderate air and fecal material scattered throughout the colon which is not significantly dilated. I do not see significant small bowel dilatation. No abnormal calcifications are seen. There are degenerative changes of the spine. IMPRESSION: Moderate fecal retention. Electronically Signed by Parish Huizar MD 05/09/2019 10:10 A
--- NOTE | 2019-05-04 19:33 | REP ---
BILATERAL KNEE SERIES: Four views bilateral knees performed. There is no acute fracture or dislocation. There is moderate medial joint space narrowing with subchondral sclerosis and spurring bilaterally. There is moderate spurring of the superior and inferior poles of the patellas. There are small effusions bilaterally. IMPRESSION: Degenerative changes without evidence of acute fracture or dislocation. Small joint effusions. Electronically Signed by Parish Huizar MD 05/09/2019 10:10 A
--- NOTE | 2019-05-04 19:55 | REPVR ---
PROCEDURE INFORMATION: Exam: CT Abdomen And Pelvis With Contrast Exam date and time: 05/04/2019 7:18 PM Age: 54 years old Clinical history: Abdominal pain; Generalized; Additional info: Dialted bowel loops on xray, further eval TECHNIQUE: Imaging protocol: Computed tomography of the abdomen and pelvis with intravenous contrast. Radiation optimization: All CT scans at this facility use at least one of these dose optimization techniques: automated exposure control; mA and/or kV adjustment per patient size (includes targeted exams where dose is matched to clinical indication); or iterative reconstruction. Contrast material: ISOVUE 370; Contrast volume: 100 ml; Contrast route: IV; COMPARISON: CT ABD PELVIS W/O CONTRAST 04/17/2019 9:52 AM FINDINGS: Liver: There is a diffuse decrease in hepatic parenchymal density, consistent with fatty infiltration. Gallbladder and bile ducts: Increased density demonstrated layering posteriorly in the gallbladder consistent with the presence of sludge. No calculi demonstrated. No wall thickening. Pancreas: There is mild diffuse pancreatic atrophy. Spleen: Normal. No splenomegaly. Adrenals: Normal. No mass. Kidneys and ureters: Normal. No hydronephrosis. Stomach and bowel: Dilated transverse colon measures 6.8 cm maximally. Increased feces demonstrated in the left and right colon with possible impacted feces in the rectosigmoid. Clinical correlation to exclude distal colonic obstruction suggested. Appendix: No evidence of appendicitis. Intraperitoneal space: Unremarkable. No free air. No significant fluid collection. Vasculature: Unremarkable. No abdominal aortic aneurysm. Lymph nodes: Unremarkable. No enlarged lymph nodes. Bladder: Unremarkable as visualized. Reproductive: Unremarkable as visualized. Bones/joints: Moderate central spinal stenosis L4-5. Posterior bulging annulus L5-S1. Mild retrolisthesis of L5 on S1. Moderate to severe bilateral foraminal stenosis at L4-5 and L5-S1. Soft tissues: Left inguinal hernia. Umbilical hernia. IMPRESSION: 1. There is a diffuse decrease in hepatic parenchymal density, consistent with fatty infiltration. 2. Increased density demonstrated layering posteriorly in the gallbladder consistent with the presence of sludge. No calculi demonstrated. No wall thickening. 3. There is mild diffuse pancreatic atrophy. 4. Dilated transverse colon measures 6.8 cm maximally. Increased feces demonstrated in the left and right colon with possible impacted feces in the rectosigmoid. Clinical correlation to exclude distal colonic obstruction suggested. Electronically signed by: Eze Blakely On 05/04/2019 19:54:55 PM
[2019-05-04] MEDS ORDERED: lisinopriL 20 MG TAB PO ONE (20:00)
[2019-05-04] MEDS ORDERED: metFORMIN (GLUCOPHAGE) 1000 MG TABLET PO ONE (20:00)
[2019-05-04] MEDS ORDERED: LORazepam 2 MG TAB PO STA ×2 (20:08→21:21)
[2019-05-04] MEDS: FLEET OIL RETENTION ENEMA PR PRN ×2 (20:28→20:52)
[2019-05-04] MEDS ORDERED: MAGNESIUM CITRATE 300 ML BTL PO ONE (21:30)
[2019-05-04] MEDS ORDERED: INVE1.75 IM (22:01)
[2019-05-04] MEDS ORDERED: VENTAER INH (22:01)
[2019-05-04] MEDS ORDERED: LISI-538 PO (22:01)
[2019-05-04] MEDS ORDERED: QUET1TAB10 PO (22:01)
[2019-05-05] MEDS ORDERED: lisinopriL 20 MG TAB PO ONE (08:30)
[2019-05-05] MEDS ORDERED: metFORMIN (GLUCOPHAGE) 1000 MG TABLET PO ONE (08:30)
--- NOTE | 2019-05-05 13:24 | HPEPDOC ---
General Date of Admission May 05, 2019 at 10:28 Date of Service: May 05, 2019 Chief Complaint The patient is a 54-year-old male admitted with a reason for visit of Unspecified Psychosis. Source: Patient Exam Limitations: No limitations Associated Symptoms: Other (. None) History of Present Illness This is a 54 years old -Filipino male with past medical history of diastolic heart failure with EF of 65-70%, COPD, left eye blindness, obesity, diabetes mellitus, hypertension, tobacco use, depression been admitted to [facility] and we will called in for the medical H&P. Patient declines any medical complaints but he wishes to take multivitamin and vitamin supplements but does not complaining of chest pain, shortness of breath, nausea, vomiting, diarrhea, syncope, etc. Home Medications Scheduled Lisinopril (Lisinopril) 20 Mg Tablet, 20 MG PO DAILY, (Reported) Metformin HCl (Metformin HCl) 1,000 Mg Tab, 1,000 MG PO BID, (Reported) Paliperidone Palmitate (Invega Trinza) 819 Mg/2.625 Ml Syringe, 819 MG IM Q3M, (Reported) LAST TAKEN IN FEBRUARY AROUND THE Quetiapine Fumarate (Quetiapine Fumarate) 300 Mg Tablet, 300 MG PO QHS, (Reported) Trazodone HCl (Trazodone HCl) 150 Mg Tab, 300 MG PO QHS, (Reported) Scheduled PRN Albuterol Sulfate (Ventolin Hfa) 18 Gm Hfa.aer.ad, 2 PUFF INH Q4H PRN for WHEEZING, (Reported) Allergies Coded Allergies: No Known Allergies (Unverified , 11/02/14) Past Medical History Medical History Diastolic heart failure, COPD, left eye blindness, obesity, diabetes mellitus, hypertension, tobacco use and depression Surgical History None Family History Significant Family History: No pertinent family hx Social History * Smoker: current smoker Alcohol: Denies Drugs: denies Psychosocial History: Other (, psychotic disorder) A-FIB/CHADSVASC A-FIB History Current/History of A-Fib/PAF?: No Review of Systems Constitutional: Denies: Chills, Fever, Malaise, Night Sweats, Weakness, Fatigue, Weight Loss, Lethargy, Other Eyes: Denies: Pain, Vision change, Conjunctivae inflammation, Eyelid inflammation, Redness, Other ENT: Denies: Head Aches, Ear Pain, Dysphagia, Sinus Congestion, Post Nasal Dr ip, Sore Throat, Epistaxis, Other Symptoms Skin: Denies: Rash, Lesions, Jaundice, Bruising, Itching, Dry, Breakdown, Nail Changes, Other Pulmonary: Denies: Dyspnea, Cough, Pleuritic Chest Pain, Other Symptoms Cardiovascular: Denies: Chest Pain, Palpitations, Orthopnea, Paroxysmal Noc. Dyspnea, Edema, Lt Headedness, Other Symptoms Gastrointestinal: Denies: Nausea, Vomiting, Abdominal Pain, Diarrhea, Constipation, Melena, Hematochezia, Other Symptoms Genitourinary: Denies: Dysuria, Frequency, Incontinence, Hematuria, Retention, Other Symptoms Hematologic: Denies: Bruising, Bleeding Excessively, Petecchia, Purpura, Enlarged Lymph Nodes, Other Hematologic Endocrine: Denies: Polydipsia, Polyphagia, Polyuria, Heat Intolerance, Cold Intolerance, Other Endocrine Sx Musculoskeletal: Denies: Neck Pain, Back Pain, Shoulder Pain, Arm Pain, Hand Pain, Leg Pain, Foot Pain, Joint Pain, Muscle Pain, Spasms, Other Symptoms Psych: Denies: Mood Normal, Anxiety, Depression, Memory Issues, Thoughts of Self Harm, Anger, Thoughts of Harming Other, Other Psych Physical Examination General Exam: Positive: Alert, Cooperative Eye Exam: Positive: PERRLA, Conjunctiva & lids normal ENT Exam: Positive: Atraumatic, Mucous membr. moist/pink Neck Exam: Positive: Supple Chest Exam: Positive: Clear to auscultation, Normal air movement Heart Exam: Positive: Rate Normal, Normal S1, Normal S2 Abdomen Exam: Positive: Normal bowel sounds Extremity Exam: Positive: Normal pulses Skin Exam: Positive: Nl turgor and temperature Neuro Exam: Positive: Strength at 5/5 X4 ext, Sensation Intact, Cranial Nerves 3-12 NL Psych Exam: Positive: Mental status NL, Oriented x 3 Vital Signs Vital Signs Date Time Temp Pulse Resp B/P (MAP) Pulse Ox O2 Delivery O2 Flow Rate FiO2 05/05/19 10:47 164/86 (112) 05/05/19 09:09 98.3 97 18 99 05/04/19 19:46 Room Air Laboratory Data Labs 24H Laboratory Tests 2 05/04/19 16:41: Urine Color YELLOW, Urine Appearance HAZY, Urine pH 6.0, Urine Specific [place] 1.008, Urine Protein NEGATIVE, Urine Glucose (UA) NEGATIVE, Urine Ketones NEGATIVE, Urine Blood 1+H, Urine Nitrite NEGATIVE, Urine Bilirubin NEGATIVE, Urine Urobilinogen 0.2, Urine Leukocyte Esterase NEGATIVE, Urine WBC (Auto) 2, Urine RBC (Auto) 1, Urine Hyaline Casts (Auto) 0, Urine Bacteria (Auto) NEGATIVE, Urine Squamous Epithelial Cells 1, Urine Amorphous Sediment SMALLH, Urine Sperm (Auto) 05/04/19 16:42: Immature Granulocyte % (Auto) 0.2, Neutrophils (%) (Auto) 54.0, Lymphocytes (%) (Auto) 35.8, Monocytes (%) (Auto) 8.8H, Eosinophils (%) (Auto) 0.8, Basophils (%) (Auto) 0.4, Neutrophils # (Auto) 6.2, Lymphocytes # (Auto) 4.1, Monocytes # (Auto) 1.0H, Eosinophils # (Auto) 0.1, Basophils # (Auto) 0.1, Nucleated Red Blood Cells % (auto) 0.0, Anion Gap 6L, Glomerular Filtration Rate > 60.0, Calcium Level 9.1, Total Bilirubin 0.8, Direct Bilirubin 0.2, Aspartate Amino Transf (AST/SGOT) 26, Alanine Aminotransferase (ALT/SGPT) 25, Alkaline Phosphatase 82, Total Protein 7.5, Albumin 4.2, Albumin/Globulin Ratio 1.27, Thyroid Stimulating Hormone (TSH) 2.040, Salicylates Level 2.1L, Urine Opiates Screen NEGATIVE, Urine Methadone Screen NEGATIVE, Acetaminophen Level < 2.0L, Urine Barbiturates Screen NEGATIVE, Urine Phencyclidine Screen NEGATIVE, Urine Amphetamines Screen POSITIVEH, Urine Benzodiazepines Screen NEGATIVE, Urine Cocaine Metabolite Screen NEGATIVE, Urine Cannabinoids Screen POSITIVEH, Ethyl Alcohol Level < 0.003 05/04/19 17:45: Bedside Glucose (Misc Panel) 133H CBC/BMP Laboratory Tests 05/04/19 16:42 Problems (1) COPD (chronic obstructive pulmonary disease) Status: Chronic Problem Text: COPD is under well control Patient uses Proventil MDI when necessary CBC, CMP essentially within normal limits . We'll continue monitoring and continue home meds (2) Diabetes mellitus Status: Chronic Problem Text: Patient is currently on Glucophage for diabetes mellitus Will order hemoglobin A1c as well as lipid profile Continue home meds (3) HTN (hypertension) Status: Chronic Problem Text: Patient is currently on lisinopril with good control . We'll continue monitoring patient's blood pressure Continue present meds Plan / VTE VTE Prophylaxis Ordered?: No VTE Exclusion Mechanical Proph: Low Risk for VTE VTE Exclusion Pharmacological: At Low Risk for VTE ANA GARY MD May 05, 2019 13:24
[2019-05-05] MEDS ORDERED: ALBUTEROL 90 MCG/ACT 8GM HFA INHALER INH PRN (13:30)
[2019-05-05 13:47] VITALS: BP 167/96
[2019-05-05] MEDS: MULTIVITAMINS/MINERALS THERAP 1 TAB PO SCH (16:03)
[2019-05-05] MEDS: metFORMIN (GLUCOPHAGE) 1000 MG TABLET PO SCH (18:01)
[2019-05-05 20:01] VITALS: BP 175/97
[2019-05-05 22:01] VITALS: BP 133/66
[2019-05-05] MEDS: QUEtiapine FUMARATE 100 MG TAB PO SCH (23:04)
[2019-05-05] MEDS: traZODone 100 MG TAB PO SCH (23:04)
[2019-05-06 06:01] VITALS: BP 145/90
[2019-05-06 06:29] VITALS: BP 145/90
[2019-05-06 08:39] LABS: HEMOGLOBIN A1c 6.8 %
[2019-05-06 08:49] LABS: CHOLESTEROL RISK RATIO 4.057 (<5)
[2019-05-06] MEDS: MULTIVITAMINS/MINERALS THERAP 1 TAB PO SCH (08:52)
[2019-05-06] MEDS: metFORMIN (GLUCOPHAGE) 1000 MG TABLET PO SCH ×2 (08:53→17:35)
[2019-05-06] MEDS: lisinopriL 20 MG TAB PO SCH (08:53)
--- NOTE | 2019-05-06 10:58 | MHHPEPDOC ---
[facility] History & Physical History and Physical DATE OF ADMISSION: May 05, 2019 at 10:28 New Patient Néstor Ulloa MRN: N/A Date of : N/A Date of Service: 05/06/2019 Chief Complaint "Chantal SNOWDEN!." History of Present Illness The patient is a 54-year-old man with a long history of schizophrenia and psychotic illness, presents after using multiple drugs including Sigrid and methamphetamine. The patient was met with; however, he was extremely poor historian, still mildly psychotic, he has been lying in bed for the most part. He still has bizarre behaviors unusual, preoccupation was saluting and an unusual disorganized way of engaging. He is able to only answer that he has had taken methamphetamine and Sigrid prior to coming in. The rest of the psychosocial information is extracted from his previous admissions and updated as able. In the ER notes, it appeared that he had had suicidal thoughts relayed on his presentation. Review Of Systems Unable to obtain due to patient's mental status. Past Psychiatric History Has a history of schizophrenia, on Invega Trinza 819 mg every 3 months. Has multiple admissions, last in July 2017. No notable history of suicide that I can discern from the chart at this time. Allergies Please see below. Family Psychiatric History Has reported in the past that he has a brother, niece and other family members with depression and substance use problems, but no history of suicide. Social History The patient is a never man who is currently disabled, receiving SSI, had completed the 11th grade, history for and has had difficulty with multiple different substances in the past. He reportedly has children, but they do not live with him. He currently lives in a community residence. Substance Abuse History The patient has a notable polysubstance use history with positive toxicology across multiple years for amphetamines and cannabinoids, but no recent alcohol on admissions. He is planning to go to a rehab at [facility] prior to his adm ission. Medical History Has a history of diabetes, hypertension and COPD. Mental Status Examination General: Poor hygiene. Speech: Monotonous. Thought processes: Circumstantial. MSK: Smooth and coordinated gait, no signs of tremors or involuntary orofacial movements Thought content: Bizarre. Abstract reasoning, and computation: Impaired. Description of associations: Impaired. Description of abnormal or psychotic thoughts: Denies any suicidal or homicidal ideation. Judgment: Impaired. Insight: Impaired. Orientation: Alert and orientated 3 Cognition: Grossly normal Recent and remote memory: Intact Attention span and concentration: Intact Fund of knowledge: Adequate Mood: "Fine." Affect: Flat with little reactivity. Diagnoses Unspecified psychotic disorder. Schizophrenia versus substance-induced. Methamphetamine use disorder, severe. Cannabinoid use disorder, severe. Hallucinogen use disorder, severe Alcohol use disorder, unspecified. Assessment and Plan Unspecified psychotic disorder: We'll continue Invega Trinza observation to determine if it is more likely schizophrenia versus substance-induced. Methamphetamine, cannabinoid and hallucinogen use disorder: Recommend outpatient rehab. Alcohol use disorder: We'll monitor if needs any CIWA, at this time does not appear to be demonstrating withdrawal or side effects. Disposition Patient will need admission likely lasting on 2 midnights to treat his severely impairing psychosis. Problem List 1. Altered thoughts. 2. Substance use. 3. Risk for suicide. Initial Treatment Plan 1. Patient was admitted on a 9.39 legal status. 2. Complete history was obtained. 3. With patients permission, family will be contacted and database will be expanded. 4. Patients medication regimen will be reviewed and changed accordingly. 5. Patient will be provided with protected environment. 6. Patient will be treated with individual, group, and milieu therapies. 7. Patient will receive supportive psych-education. 8. Discharge planning will commence immediately. 9. Outpatient follow-up treatment will be strongly recommended. 10. The initial treatment plan will focus initially on: Estimated Length Of Stay Five days. Time Spent 70 minutes. Thursday Vital Signs Vital Signs Date Time Temp Pulse Resp B/P (MAP) Pulse Ox O2 Delivery O2 Flow Rate FiO2 05/06/19 08:53 126/66 05/06/19 06:29 98.5 100 05/06/19 06:01 16 05/05/19 13:47 100 Room Air Laboratory Data 24H Labs Laboratory Tests 2 05/05/19 21:42: Bedside Glucose (Misc Panel) 107H 05/06/19 06:21: Bedside Glucose (Misc Panel) 128H 05/06/19 08:05: Estimated Mean Plasma Glucose 148H, Hemoglobin A1c 6.8, Triglycerides Level 96, Total Cholesterol 211H, LDL Cholesterol 140H, Non-HDL Cholesterol (LDL + VLDL) 159, Total HDL Cholesterol 52, Cholesterol/HDL Ratio 4.057, 25-Hydroxy Vitamin D Total 17.0L FSBS Laboratory Tests Test 05/05/19 21:42 05/06/19 06:21 Range/Units Bedside Glucose (Misc Panel) 107 128 70-105 MG/DL Medications Scheduled Lisinopril (Lisinopril) 20 Mg Tablet, 20 MG PO DAILY, (Reported) Metformin HCl (Metformin HCl) 1,000 Mg Tab, 1,000 MG PO BID, (Reported) Paliperidone Palmitate (Invega Trinza) 819 Mg/2.625 Ml Syringe, 819 MG IM Q3M, (Reported) LAST TAKEN IN FEBRUARY AROUND THE Quetiapine Fumarate (Quetiapine Fumarate) 300 Mg Tablet, 300 MG PO QHS, (Reported) Trazodone HCl (Trazodone HCl) 150 Mg Tab, 300 MG PO QHS, (Reported) Scheduled PRN Albuterol Sulfate (Ventolin Hfa) 18 Gm Hfa.aer.ad, 2 PUFF INH Q4H PRN for WHEEZING, (Reported) Allergies Coded Allergies: haloperidol (Verified Adverse Reaction, Unknown, unknown, 05/07/19) Per brother, there [facility] a [facility] He was unable to describe the reaction. COLT MAIER DO May 06, 2019 10:58
[2019-05-06 16:26] VITALS: BP 126/71
[2019-05-06] MEDS: ACETAMINOPHEN TAB 650MG DOSE (2X325MG) PO PRN (18:50)
[2019-05-06] MEDS ORDERED: diphenhydrAMINE 25 MG CAP PO ONE (20:45)
[2019-05-06] MEDS: QUEtiapine FUMARATE 100 MG TAB PO SCH (21:14)
[2019-05-06] MEDS: traZODone 100 MG TAB PO SCH (21:14)
[2019-05-07] MEDS: ACETAMINOPHEN TAB 650MG DOSE (2X325MG) PO PRN (03:20)
[2019-05-07] MEDS ORDERED: LORazepam 2 MG TAB PO ONE (04:00)
[2019-05-07] MEDS ORDERED: diphenhydrAMINE 50 MG CAP PO ONE (04:00)
[2019-05-07 06:04] VITALS: BP 118/78
[2019-05-07] MEDS: metFORMIN (GLUCOPHAGE) 1000 MG TABLET PO SCH ×2 (07:48→17:08)
[2019-05-07] MEDS: MULTIVITAMINS/MINERALS THERAP 1 TAB PO SCH (08:14)
[2019-05-07] MEDS: lisinopriL 20 MG TAB PO SCH (08:14)
[2019-05-07 16:02] VITALS: BP 112/88
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
[2019-05-08] MEDS: QUEtiapine FUMARATE 100 MG TAB PO SCH ×2 (03:44→20:38)
[2019-05-08] MEDS: traZODone 100 MG TAB PO SCH ×2 (03:45→20:39)
[2019-05-08 06:14] VITALS: BP 156/90
[2019-05-08] MEDS: metFORMIN (GLUCOPHAGE) 1000 MG TABLET PO SCH ×2 (08:23→18:06)
[2019-05-08] MEDS: lisinopriL 20 MG TAB PO SCH (08:23)
[2019-05-08] MEDS: MULTIVITAMINS/MINERALS THERAP 1 TAB PO SCH (08:23)
--- NOTE | 2019-05-08 12:32 | MHIPNPDOC ---
[facility] Progress Note Progress Note Inpatient Progress Note Néstor Ulloa MRN: N/A Date of : N/A Date of Service: 05/08/2019 History of Present Illness The patient is a 54-year-old man with a long history of schizophrenia and psychotic illness, presents after using multiple drugs including Sigrid and methamphetamine. The patient was met with; however, he was extremely poor historian, still mildly psychotic, he has been lying in bed for the most part. He still has bizarre behaviors unusual, preoccupation was saluting and an unusual disorganized way of engaging. He is able to only answer that he has had taken methamphetamine and Sigrid prior to coming in. The rest of the psychosocial information is extracted from his previous admissions and updated as able. In the ER notes, it appeared that he had had suicidal thoughts relayed on his presentation. Interval History The patient is attempted to be met with today. He is still fairly bizarre and difficult to interview. He has still been fairly religiously preoccupied, unusual. After attempting to meet with him, the patient does become quite elated and chronically gets AWOL with no dangerous intentions, but appears to be fairly disorganized and impulsive. He did not need to be coded, however he appears to be focused on a number of different problems, almost incoherent at times due to his elation and hyperverbal nature. However, he has been amenable to treatment and has been taking his medications consistently, attending groups at times. Review Of Systems Denies any side effects from his medications. Reports chronic knee pain. Denies any chest pain, shortness of breath, nausea, vomiting, constipation, tremors, dizziness. Psychotherapy None on this visit. Vital Signs Reviewed. Mental Status Examination General: Poor hygiene. Speech: Pressured. Thought processes: Tangential. MSK: Smooth and coordinated gait, no signs of tremors or involuntary orofacial movements. Thought content: Bizarre. Abstract reasoning, and computation: Impaired. Description of associations: Impaired. Description of abnormal or psychotic thoughts: Denies any suicidal or homicidal ideation. Judgment: Impaired. Insight: Impaired. Orientation: Alert and orientated 3. Cognition: Grossly normal. Recent and remote memory: Intact. Attention span and concentration: Intact. Fund of knowledge: Adequate. Mood: "Fine." Affect: Elated. Diagnoses Unspecified psychotic disorder. Schizophrenia versus substance-induced. Methamphetamine use disorder, severe. Cannabinoid use disorder, severe. Hallucinogen use disorder, severe Alcohol use disorder, unspecified. Assessment and Plan Unspecified psychotic disorder: We'll order Wilfrido Thomas. Will have to crab picker from outside pharmacy as not on formulary, home Seroquel restarted. Methamphetamine, cannabinoid and hallucinogen use disorder: Recommend outpatient rehab. Alcohol use disorder: We'll monitor if needs any CIWA, at this time does not appear to be demonstrating withdrawal or side effects. Disposition The patient will need a further inpatient admission due to his impairing psychosis making him elated and impulsive and a danger to himself. Time Spent 15 minutes [id number]. Thursday Vital Signs Vital Signs Date Time Temp Pulse Resp B/P (MAP) Pulse Ox O2 Delivery O2 Flow Rate FiO2 05/08/19 08:23 138/90 05/08/19 06:14 99.7 75 14 Room Air 05/05/19 13:47 100 Laboratory Data 24H Labs Laboratory Tests 2 05/07/19 17:06: Bedside Glucose (Misc Panel) 168H 05/08/19 06:37: Bedside Glucose (Misc Panel) 120H Current Medications Current Medications Medications (Trade) Dose Ordered Sig/Preston Route PRN Reason Start Time Stop Time Status Last Admin Dose Admin Acetaminophen (Tylenol Tab) 650 mg Q6HP PRN PO PAIN 05/05/19 22:30 05/07/19 03:20 Albuterol Sulfate (Proventil, Ventolin Hfa) 2 puff RQ4H PRN INH WHEEZING 05/05/19 13:30 Home Med (Med Rec Complete!) ASDIRECTED XX 05/04/19 22:15 05/04/19 22:06 DC Lisinopril (Prinivil) 20 mg DAILY PO 05/06/19 09:00 05/08/19 08:23 Lorazepam (Ativan) 2 mg STAT STAT PO 05/04/19 20:08 05/04/19 20:12 DC 05/04/19 20:21 Lorazepam (Ativan) 2 mg STAT STAT PO 05/04/19 21:21 05/04/19 21:22 DC 05/04/19 21:58 Metformin HCl (Glucophage) 1,000 mg BID@0800,1800 PO 05/05/19 18:00 12/15/19 08:23 Mineral Oil (Fleet Oil Retention Enema) 1 ea DAILYPRN PRN [place] CONSTIPATION 05/04/19 20:15 05/05/19 11:27 DC Multivitamins (Theragram-M) 1 tab DAILY PO 05/05/19 09:00 05/08/19 08:23 Quetiapine Fumarate (SEROquel) 300 mg QHS PO 05/05/19 21:00 05/08/19 03:44 Trazodone HCl (Desyrel) 300 mg QHS PO 05/05/19 21:00 05/08/19 03:45 Allergies Coded Allergies: haloperidol (Verified Adverse Reaction, Unknown, unknown, 05/07/19) Per brother, there was a reaction in the past the [facility]. He was unable to describe the reaction. COLT MAIER DO May 08, 2019 12:32
[2019-05-08] MEDS ORDERED: INVE1.75 IM (14:19)
[2019-05-08] MEDS: MAALOX 30 ML SUSP *UDC PO PRN (15:14)
[2019-05-08 16:00] VITALS: BP 131/66
[2019-05-08] MEDS: ACETAMINOPHEN TAB 650MG DOSE (2X325MG) PO PRN (16:03)
[2019-05-08] MEDS: ANALGESIC BALM CRM 120 GM TOP PRN (16:35)
[2019-05-08] MEDS ORDERED: OLANZapine ORAL DISINTEGRATING TAB 5MG PO ONE (19:00)
[2019-05-09 06:11] VITALS: BP 135/85
[2019-05-09] MEDS: metFORMIN (GLUCOPHAGE) 1000 MG TABLET PO SCH ×2 (09:22→17:23)
[2019-05-09] MEDS: MULTIVITAMINS/MINERALS THERAP 1 TAB PO SCH (09:22)
[2019-05-09] MEDS: lisinopriL 20 MG TAB PO SCH (09:28)
--- NOTE | 2019-05-09 10:13 | MHIPNPDOC ---
[facility] Progress Note Progress Note Inpatient Progress Note Néstor Ulloa MRN: N/A Date of : N/A Date of Service: 05/09/2019 History of Present Illness The patient is a 54-year-old man with a long history of schizophrenia and psychotic illness, presents after using multiple drugs including Sigrid and methamphetamine. The patient was met with; however, he was extremely poor historian, still mildly psychotic, he has been lying in bed for the most part. He still has bizarre behaviors unusual, preoccupation was saluting and an unusual disorganized way of engaging. He is able to only answer that he has had taken methamphetamine and Sigrid prior to coming in. Interval History The patient is attempted to be met with today. He is still quite bizarre and tangential. He has been notably a little better behaved, however, his Invega Trinza will still take some time as it has to be sent [facility] and hopefully picked up. The patient has been attending groups and is more or less friendly, although fairly religiously preoccupied, tangential and at times becomes completely confused. He has had some behavioral problems the previous evening as mentioned in my previous note, however, he has had no overt violence or other concerning problems. Review Of Systems Denies any side effects from his medications. Continues to report chronic knee pain, somatically preoccupied. Psychotherapy None on this visit. Vital Signs Reviewed. Mental Status Examination General: Poor hygiene. Speech: Pressured. Thought processes: Tangential. MSK: Smooth and coordinated gait, no signs of tremors or involuntary orofacial movements. Thought content: Bizarre. Abstract reasoning, and computation: Impaired. Description of associations: Impaired. Description of abnormal or psychotic thoughts: Denies any suicidal or homicidal ideation. Judgment: Impaired. Insight: Impaired. Orientation: Alert and orientated 3. Cognition: Grossly normal. Recent and remote memory: Intact. Attention span and concentration: Intact. Fund of knowledge: Adequate. Mood: "Fine." Affect: Elated. Diagnoses Unspecified psychotic disorder. Schizophrenia versus substance-induced. Methamphetamine use disorder, severe. Cannabinoid use disorder, severe. Hallucinogen use disorder, severe Alcohol use disorder, unspecified. Assessment and Plan Unspecified psychotic disorder: Invega 6 mg daily restarted equivalent to his 819 mg of Invega Trinza that is still pending, being ordered. Continue Seroquel. Methamphetamine, cannabinoid and hallucinogen use disorder: Recommend outpatient rehab. Alcohol use disorder: We'll monitor if needs any CIWA, at this time does not appear to be demonstrating withdrawal or side effects. Disposition The patient will need a further inpatient admission due to his impairing psychosis making him elated and impulsive and a danger to himself. Time Spent 15 minutes [id number]. Thursday Vital Signs Vital Signs Date Time Temp Pulse Resp B/P (MAP) Pulse Ox O2 Delivery O2 Flow Rate FiO2 05/09/19 09:28 113/68 05/09/19 06:11 98.5 91 16 05/08/19 06:14 Room Air 05/05/19 13:47 100 Laboratory Data 24H Labs Laboratory Tests 2 05/08/19 17:01: Bedside Glucose (Misc Panel) 162H 05/09/19 06:13: Bedside Glucose (Misc Panel) 138H Current Medications Current Medications Medications (Trade) Dose Ordered Sig/Preston Route PRN Reason Start Time Stop Time Status Last Admin Dose Admin Acetaminophen (Tylenol Tab) 650 mg Q6HP PRN PO PAIN 05/05/19 22:30 05/08/19 16:03 Al Hydrox/Mg Hydrox/Simethicone (Mylanta) 30 ml Q4HP PRN PO HEARTBURN 05/08/19 14:45 05/08/19 15:14 Albuterol Sulfate (Proventil, Ventolin Hfa) 2 puff RQ4H PRN INH WHEEZING 05/05/19 13:30 Home Med (Med Rec Complete!) ASDIRECTED XX 05/04/19 22:15 05/04/19 22:06 DC Lisinopril (Prinivil) 20 mg DAILY PO 05/06/19 09:00 05/09/19 09:28 Lorazepam (Ativan) 2 mg STAT STAT PO 05/04/19 20:08 05/04/19 20:12 DC 05/04/19 20:21 Lorazepam (Ativan) 2 mg STAT STAT PO 05/04/19 21:21 05/04/19 21:22 DC 05/04/19 21:58 Magnesium Hydroxide (Milk Of Magnesia) 30 ml DAILYPRN PRN PO CONSTIPATION 05/08/19 14:45 Menthol/Methyl Salicylate (Bengay Cream) apply to both knees TIDP PRN TOP knee pain 05/08/19 16:15 05/08/19 16:35 Metformin HCl (Glucophage) 1,000 mg BID@0800,1800 PO 05/05/19 18:00 05/09/19 09:22 Mineral Oil (Fleet Oil Retention Enema) 1 ea DAILYPRN PRN [place] CONSTIPATION 05/04/19 20:15 05/05/19 11:27 DC Multivitamins (Theragram-M) 1 tab DAILY PO 05/05/19 09:00 05/09/19 09:22 Quetiapine Fumarate (SEROquel) 300 mg QHS PO 05/05/19 21:00 05/08/19 20:38 Trazodone HCl (Desyrel) 300 mg QHS PO 05/05/19 21:00 05/08/19 20:39 Allergies Coded Allergies: haloperidol (Verified Adverse Reaction, Unknown, unknown, 05/07/19) Per brother, [facility] He was unable to describe the reaction. COLT MAIER DO May 09, 2019 10:13
[2019-05-09] MEDS: PALIPERIDONE 6 MG ER TAB (INVEGA) PO SCH (14:08)
[2019-05-09 16:56] VITALS: BP 112/60
[2019-05-09] MEDS: QUEtiapine FUMARATE 100 MG TAB PO SCH (21:17)
[2019-05-09] MEDS: traZODone 100 MG TAB PO SCH (21:18)
[2019-05-10 06:55] VITALS: BP 116/65
[2019-05-10] MEDS: metFORMIN (GLUCOPHAGE) 1000 MG TABLET PO SCH ×2 (08:03→17:55)
[2019-05-10] MEDS: PALIPERIDONE 6 MG ER TAB (INVEGA) PO SCH (08:03)
[2019-05-10] MEDS: MULTIVITAMINS/MINERALS THERAP 1 TAB PO SCH (08:03)
[2019-05-10] MEDS: lisinopriL 20 MG TAB PO SCH (08:06)
--- NOTE | 2019-05-10 11:10 | MHIPNPDOC ---
[facility] Progress Note Progress Note Inpatient Progress Note Néstor Ulloa MRN: N/A Date of : N/A Date of Service: 05/10/2019 History of Present Illness The patient is a 54-year-old man with a long history of schizophrenia and psychotic illness, presents after using multiple drugs including Sigrid and methamphetamine. The patient was met with; however, he was extremely poor historian, still mildly psychotic, he has been lying in bed for the most part. He still has bizarre behaviors unusual, preoccupation was saluting and an unusual disorganized way of engaging. He is able to only answer that he has had taken methamphetamine and Sigrid prior to coming in. Interval History The patient was attempted to met, but he is still quite bizarre and disorganized. The patient has gone into multiple screaming episodes, being bizarre requiring PRNs of Zyprexa being given. He is still difficult to interview as he frequently loses focus meandering off. He is still highly psychotic, unable to attend to as needs. He attends groups at times, but is usually disruptive requiring significant redirection. He has not need to be coded as of last night. Review Of Systems Continues to report knee pain and fixates on it. Psychotherapy None on this visit. Vital Signs Reviewed. Mental Status Examination General: Poor hygiene. Speech: Pressured. Thought processes: Tangential. MSK: Smooth and coordinated gait, no signs of tremors or involuntary orofacial movements. Thought content: Bizarre. Abstract reasoning, and computation: Impaired. Description of associations: Impaired. Description of abnormal or psychotic thoughts: Denies any suicidal or homicidal ideation. Judgment: Impaired. Insight: Impaired. Orientation: Alert and orientated 3. Cognition: Grossly normal. Recent and remote memory: Intact. Attention span and concentration: Intact. Fund of knowledge: Adequate. Mood: "Fine." Affect: Elated. Diagnoses Unspecified psychotic disorder. Schizophrenia versus substance-induced. Methamphetamine use disorder, severe. Cannabinoid use disorder, severe. Hallucinogen use disorder, severe Alcohol use disorder, unspecified. Assessment and Plan Unspecified psychotic disorder: Continue Invega 6 mg daily. We will await Invega Trinza, continue Seroquel. We will consider changing to clozapine if patient does not improve shortly. Methamphetamine, cannabinoid and hallucinogen use disorder: Recommend outpatient rehab. Alcohol use disorder: We'll monitor if needs any CIWA, at this time does not appear to be demonstrating withdrawal or side effects. Disposition The patient will need a further inpatient admission due to his impairing psychosis making him elated and impulsive and a danger to himself. Time Spent Thursday Vital Signs Vital Signs Date Time Temp Pulse Resp B/P (MAP) Pulse Ox O2 Delivery O2 Flow Rate FiO2 05/10/19 08:06 128/60 05/10/19 06:55 98.6 102 16 05/08/19 06:14 Room Air 05/05/19 13:47 100 Laboratory Data 24H Labs Laboratory Tests 2 05/09/19 17:17: Bedside Glucose (Misc Panel) 105 05/10/19 06:31: Bedside Glucose (Misc Panel) 109H Current Medications Current Medications Medications (Trade) Dose Ordered Sig/Preston Route PRN Reason Start Time Stop Time Status Last Admin Dose Admin Acetaminophen (Tylenol Tab) 650 mg Q6HP PRN PO PAIN 05/05/19 22:30 05/08/19 16:03 Al Hydrox/Mg Hydrox/Simethicone (Mylanta) 30 ml Q4HP PRN PO HEARTBURN 05/08/19 14:45 05/08/19 15:14 Albuterol Sulfate (Proventil, Ventolin Hfa) 2 puff RQ4H PRN INH WHEEZING 05/05/19 13:30 Home Med (Med Rec Complete!) ASDIRECTED XX 05/04/19 22:15 05/04/19 22:06 DC Lisinopril (Prinivil) 20 mg DAILY PO 05/06/19 09:00 05/10/19 08:06 Lorazepam (Ativan) 2 mg STAT STAT PO 05/04/19 20:08 05/04/19 20:12 DC 05/04/19 20:21 Lorazepam (Ativan) 2 mg STAT STAT PO 05/04/19 21:21 05/04/19 21:22 DC 05/04/19 21:58 Magnesium Hydroxide (Milk Of Magnesia) 30 ml DAILYPRN PRN PO CONSTIPATION 05/08/19 14:45 Menthol/Methyl Salicylate (Bengay Cream) apply to both knees TIDP PRN TOP knee pain 05/08/19 16:15 05/08/19 16:35 Metformin HCl (Glucophage) 1,000 mg BID@0800,1800 PO 05/05/19 18:00 05/10/19 08:03 Mineral Oil (Fleet Oil Retention Enema) 1 ea DAILYPRN PRN [place] CONSTIPATION 05/04/19 20:15 05/05/19 11:27 DC Multivitamins (Theragram-M) 1 tab DAILY PO 05/05/19 09:00 05/10/19 08:03 Paliperidone (Invega) 6 mg DAILY PO 05/09/19 09:00 05/10/19 08:03 Quetiapine Fumarate (SEROquel) 300 mg QHS PO 05/05/19 21:00 05/09/19 21:17 Trazodone HCl (Desyrel) 300 mg QHS PO 05/05/19 21:00 05/09/19 21:18 Allergies Coded Allergies: haloperidol (Verified Adverse Reaction, Unknown, unknown, 05/07/19) Per brother, there was a reaction in the past the [facility]. He was unable to describe the reaction. COLT MAIER DO May 10, 2019 11:10
[2019-05-10] MEDS: ANALGESIC BALM CRM 120 GM TOP PRN (13:51)
[2019-05-10] MEDS: OLANZapine ORAL DISINTEGRATING TAB 5MG PO PRN ×2 (14:12→22:16)
[2019-05-10 16:01] VITALS: BP 128/58
[2019-05-10] MEDS: traZODone 100 MG TAB PO SCH (20:25)
[2019-05-10] MEDS: QUEtiapine FUMARATE 100 MG TAB PO SCH (20:25)
[2019-05-11 06:28] VITALS: BP 144/67
[2019-05-11] MEDS: metFORMIN (GLUCOPHAGE) 1000 MG TABLET PO SCH ×2 (08:38→18:24)
[2019-05-11] MEDS: PALIPERIDONE 6 MG ER TAB (INVEGA) PO SCH (08:38)
[2019-05-11] MEDS: MULTIVITAMINS/MINERALS THERAP 1 TAB PO SCH (08:38)
[2019-05-11] MEDS: lisinopriL 20 MG TAB PO SCH (08:39)
--- NOTE | 2019-05-11 12:04 | MHIPNPDOC ---
[facility] Progress Note Progress Note Inpatient Progress Note Néstor Ulloa MRN: N/A Date of : N/A Date of Service: 05/11/2019 History of Present Illness The patient is a 54-year-old man with a long history of schizophrenia and psychotic illness, presents after using multiple drugs including Sigrid and methamphetamine. The patient was met with; however, he was extremely poor historian, still mildly psychotic, he has been lying in bed for the most part. He still has bizarre behaviors unusual, preoccupation was saluting and an unusual disorganized way of engaging. He is able to only answer that he has had taken methamphetamine and Sigrid prior to coming in. Interval History The patient is met with today. He is still fairly bizarre, semipsychotic, unable to describe much of any information other than to continually focus on the pain in his knees. He's had difficulties with becoming loud and going into screaming fits, making various yazidi statements, and bizarrely saluting the television in the lounge. He's not become overtly violent, but due to his large body habitus and quick movements has alarmed some staff, but has not become overtly violent. He continues to focus primarily on somatic symptoms, unable to gather any meaningful psychiatric information from him at this time. Review Of Systems Continues to report chronic knee pain. Denies any other concerns. Psychotherapy None on this visit. Vital Signs Reviewed. Mental Status Examination General: Poor hygiene. Speech: Pressured. Thought processes: Tangential. MSK: Smooth and coordinated gait, no signs of tremors or involuntary orofacial m ovements. Thought content: Bizarre. Abstract reasoning, and computation: Impaired. Description of associations: Impaired. Description of abnormal or psychotic thoughts: Denies any suicidal or homicidal ideation. Judgment: Impaired. Insight: Impaired. Orientation: Alert and orientated 3. Cognition: Grossly normal. Recent and remote memory: Intact. Attention span and concentration: Intact. Fund of knowledge: Adequate. Mood: "Fine." Affect: Elated. Diagnoses Unspecified psychotic disorder. Schizophrenia versus substance-induced. Methamphetamine use disorder, severe. Cannabinoid use disorder, severe. Hallucinogen use disorder, severe Alcohol use disorder, unspecified. Assessment and Plan Unspecified psychotic disorder: Continue Invega 6 mg daily. We'll attempt to administer Trinza. Insurance wishes to have further explanation. Methamphetamine, cannabinoid and hallucinogen use disorder: Recommend outpatient rehab. Alcohol use disorder: We'll monitor if needs any CIWA, at this time does not a ppear to be demonstrating withdrawal or side effects. Disposition The patient will need a further inpatient admission due to his impairing psychosis making him elated and impulsive and a danger to himself. Time Spent 15 minutes [id number]. Thursday Vital Signs Vital Signs Date Time Temp Pulse Resp B/P (MAP) Pulse Ox O2 Delivery O2 Flow Rate FiO2 05/11/19 08:39 114/64 05/11/19 06:28 98.6 79 16 Room Air 05/05/19 13:47 100 Laboratory Data 24H Labs Laboratory Tests 2 05/10/19 17:13: Bedside Glucose (Misc Panel) 152H 05/11/19 06:00: Bedside Glucose (Misc Panel) 118H Current Medications Current Medications Medications (Trade) Dose Ordered Sig/Preston Route PRN Reason Start Time Stop Time Status Last Admin Dose Admin Acetaminophen (Tylenol Tab) 650 mg Q6HP PRN PO PAIN 05/05/19 22:30 05/08/19 16:03 Al Hydrox/Mg Hydrox/Simethicone (Mylanta) 30 ml Q4HP PRN PO HEARTBURN 05/08/19 14:45 05/08/19 15:14 Albuterol Sulfate (Proventil, Ventolin Hfa) 2 puff RQ4H PRN INH WHEEZING 05/05/19 13:30 Home Med (Med Rec Complete!) ASDIRECTED XX 05/04/19 22:15 05/04/19 22:06 DC Lisinopril (Prinivil) 20 mg DAILY PO 05/06/19 09:00 05/11/19 08:39 Lorazepam (Ativan) 2 mg STAT STAT PO 05/04/19 20:08 05/04/19 20:12 DC 05/04/19 20:21 Lorazepam (Ativan) 2 mg STAT STAT PO 05/04/19 21:21 05/04/19 21:22 DC 05/04/19 21:58 Magnesium Hydroxide (Milk Of Magnesia) 30 ml DAILYPRN PRN PO CONSTIPATION 05/08/19 14:45 Menthol/Methyl Salicylate (Bengay Cream) apply to both knees TIDP PRN TOP knee pain 05/08/19 16:15 05/10/19 13:51 Metformin HCl (Glucophage) 1,000 mg BID@0800,1800 PO 05/05/19 18:00 05/11/19 08:38 Mineral Oil (Fleet Oil Retention Enema) 1 ea DAILYPRN PRN [place] CONSTIPATION 05/04/19 20:15 05/05/19 11:27 DC Multivitamins (Theragram-M) 1 tab DAILY PO 05/05/19 09:00 05/11/19 08:38 Olanzapine (ZyPREXA ZYDIS) 10 mg Q6HP PRN PO ANXIETY/AGITATION 05/10/19 14:00 05/10/19 22:16 Paliperidone (Invega) 6 mg DAILY PO 05/09/19 09:00 05/11/19 08:38 Quetiapine Fumarate (SEROquel) 300 mg QHS PO 05/05/19 21:00 05/10/19 20:25 Trazodone HCl (Desyrel) 300 mg QHS PO 05/05/19 21:00 05/10/19 20:25 Allergies Coded Allergies: haloperidol (Verified Adverse Reaction, Unknown, unknown, 05/07/19) Per brother, there was a reaction in the past the skilled nursing. He was unable to describe the reaction. COLT MAIER DO May 11, 2019 12:04
[2019-05-11 16:28] VITALS: BP 120/72
[2019-05-11] MEDS: QUEtiapine FUMARATE 100 MG TAB PO SCH (20:35)
[2019-05-11] MEDS: traZODone 100 MG TAB PO SCH (20:35)
[2019-05-12 06:08] VITALS: BP 119/71
[2019-05-12] MEDS: MULTIVITAMINS/MINERALS THERAP 1 TAB PO SCH (08:21)
[2019-05-12] MEDS: PALIPERIDONE 6 MG ER TAB (INVEGA) PO SCH (08:21)
[2019-05-12] MEDS: metFORMIN (GLUCOPHAGE) 1000 MG TABLET PO SCH ×2 (08:21→17:53)
[2019-05-12] MEDS: lisinopriL 20 MG TAB PO SCH (08:24)
--- NOTE | 2019-05-12 10:22 | MHIPNPDOC ---
[facility] Progress Note Progress Note Inpatient Progress Note Néstor Ulloa MRN: N/A Date of : N/A Date of Service: 05/12/2019 History of Present Illness The patient is a 54-year-old man with a long history of schizophrenia and psychotic illness, presents after using multiple drugs including Sigrid and methamphetamine. The patient was met with; however, he was extremely poor historian, still mildly psychotic, he has been lying in bed for the most part. He still has bizarre behaviors unusual, preoccupation was saluting and an unusual disorganized way of engaging. He is able to only answer that he has had taken methamphetamine and Sigrid prior to coming in. Interval History The patient was met with today. He has notably been improving, although he does sleep a significant portion during the day. He does have episodes of screaming fits and once she says bizarre things and kicks the wall. However, for the most part, he has been more level and more mellow with less unusual behaviors. It is unclear if these are personality corks or whether they are lingering effects of a resolving psychosis. He has been replaced on Invega 6 mg positive results. His brother had visited him and reported that he appeared mildly improved. He asks about going to rehab after he leaves which this was explained to him. He reports he is having no major problems and does not appear fixated on his knee pain today. He has had no major behavioral problems overnight and nurses have noticed him to be bizarre at times, but otherwise harmless. Review Of Systems Cardiovascular: Denies Chest pain or palpations GI: Denies Nausea, vomiting, or bowel changes Respiratory: Denies shortness of breath or cough Neuro: Denies dizziness, tremors Derm: Denies any rashes or pruritus MSK: Denies any muscle tightness or stiffness Psychotherapy None on this visit. Vital Signs Reviewed. Mental Status Examination General: Improved hygiene. Speech: Improved. Thought processes: More linear. MSK: Smooth and coordinated gait, no signs of tremors or involuntary orofacial movements. Thought content: Less bizarre. Abstract reasoning, and computation: Improved. Description of associations: Improved. Description of abnormal or psychotic thoughts: Denies any suicidal or homicidal ideation. Denies auditory or visual hallucinations. Does not appear to be responding to internal stimuli. Judgment: Improved. Insight: Improved. Orientation: Alert and orientated 3. Cognition: Grossly normal. Recent and remote memory: Intact. Attention span and concentration: Intact. Fund of knowledge: Adequate. Mood: "Fine." Affect: Less elated. More euthymic. Diagnoses Unspecified psychotic disorder. Schizophrenia versus substance-induced. Methamphetamine use disorder, severe. Cannabinoid use disorder, severe. Hallucinogen use disorder, severe Alcohol use disorder, unspecified. Assessment and Plan Unspecified psychotic disorder: Continue Invega 6 mg daily. We'll consider Sustenna, insurance not able to be obtained. Methamphetamine, cannabinoid and hallucinogen use disorder: Recommend outpatient rehab. Alcohol use disorder: We'll monitor if needs any CIWA, at this time does not appear to be demonstrating withdrawal or side effects. Disposition The patient will need a further inpatient admission due to his impairing psychosis making him elated and impulsive and a danger to himself. Time Spent 15 minutes [id number]. Vital Signs Vital Signs Date Time Temp Pulse Resp B/P (MAP) Pulse Ox O2 Delivery O2 Flow Rate FiO2 05/12/19 08:24 117/70 05/12/19 06:08 99.3 98 16 05/11/19 06:28 Room Air Laboratory Data 24H Labs Laboratory Tests 2 05/11/19 17:45: Bedside Glucose (Misc Panel) 117H 05/12/19 06:02: Bedside Glucose (Misc Panel) 134H Current Medications Current Medications Medications (Trade) Dose Ordered Sig/Preston Route PRN Reason Start Time Stop Time Status Last Admin Dose Admin Acetaminophen (Tylenol Tab) 650 mg Q6HP PRN PO PAIN 05/05/19 22:30 05/08/19 16:03 Al Hydrox/Mg Hydrox/Simethicone (Mylanta) 30 ml Q4HP PRN PO HEARTBURN 05/08/19 14:45 05/08/19 15:14 Albuterol Sulfate (Proventil, Ventolin Hfa) 2 puff RQ4H PRN INH WHEEZING 05/05/19 13:30 Home Med (Med Rec Complete!) ASDIRECTED XX 05/04/19 22:15 05/04/19 22:06 DC Lisinopril (Prinivil) 20 mg DAILY PO 05/06/19 09:00 05/12/19 08:24 Lorazepam (Ativan) 2 mg STAT STAT PO 05/04/19 20:08 05/04/19 20:12 DC 05/04/19 20:21 Lorazepam (Ativan) 2 mg STAT STAT PO 05/04/19 21:21 05/04/19 21:22 DC 05/04/19 21:58 Magnesium Hydroxide (Milk Of Magnesia) 30 ml DAILYPRN PRN PO CONSTIPATION 05/08/19 14:45 Menthol/Methyl Salicylate (Bengay Cream) apply to both knees TIDP PRN TOP knee pain 05/08/19 16:15 05/10/19 13:51 Metformin HCl (Glucophage) 1,000 mg BID@0800,1800 PO 05/05/19 18:00 05/12/19 08:21 Mineral Oil (Fleet Oil Retention Enema) 1 ea DAILYPRN PRN [place] CONSTIPATION 05/04/19 20:15 05/05/19 11:27 DC Multivitamins (Theragram-M) 1 tab DAILY PO 05/05/19 09:00 05/12/19 08:21 Olanzapine (ZyPREXA ZYDIS) 10 mg Q6HP PRN PO ANXIETY/AGITATION 05/10/19 14:00 05/10/19 22:16 Paliperidone (Invega) 6 mg DAILY PO 05/09/19 09:00 05/12/19 08:21 Quetiapine Fumarate (SEROquel) 300 mg QHS PO 05/05/19 21:00 05/11/19 20:35 Trazodone HCl (Desyrel) 300 mg QHS PO 05/05/19 21:00 05/11/19 20:35 Allergies Coded Allergies: haloperidol (Verified Adverse Reaction, Unknown, unknown, 05/07/19) Per brother, there was a [facility]. He was unable to describe the reaction. COLT MAIER DO May 12, 2019 10:22
[2019-05-12] MEDS: QUEtiapine FUMARATE 100 MG TAB PO SCH (20:23)
[2019-05-12] MEDS: zolPIDEM TARTRATE 5 MG TAB PO SCH (20:24)
[2019-05-12] MEDS: traZODone 100 MG TAB PO SCH (20:24)
[2019-05-13 06:14] VITALS: BP 138/75
[2019-05-13] MEDS: metFORMIN (GLUCOPHAGE) 1000 MG TABLET PO SCH ×2 (08:53→17:50)
[2019-05-13] MEDS: PALIPERIDONE 6 MG ER TAB (INVEGA) PO SCH (08:53)
[2019-05-13] MEDS: MULTIVITAMINS/MINERALS THERAP 1 TAB PO SCH (08:53)
[2019-05-13] MEDS: lisinopriL 20 MG TAB PO SCH (08:57)
--- NOTE | 2019-05-13 09:21 | MHIPNPDOC ---
[facility] Progress Note Progress Note Inpatient Progress Note Néstor Ulloa MRN: N/A Date of : N/A Date of Service: 05/13/2019 History of Present Illness The patient is a 54-year-old man with a long history of schizophrenia and psychotic illness, presents after using multiple drugs including Sigrid and methamphetamine. The patient was met with; however, he was extremely poor historian, still mildly psychotic, he has been lying in bed for the most part. He still has bizarre behaviors unusual, preoccupation was saluting and an unusual disorganized way of engaging. He is able to only answer that he has had taken methamphetamine and Sigrid prior to coming in. Interval History The patient is met with today. Initially, he appears to be doing better and has become less unusual and less impulsive; however, after meeting with him and him reporting he is doing best. He entered into a screaming fit where he subsequently stopped. He has had the notable problem making bizarre statements at times. He has notably made some benefit per his brother since the overall resumption of his Invega likely demonstrating that the Trinza was ineffective. Discussed with patient that he would be switched to Sustenna with dosing. Otherwise, he has had no major aggressive episodes or need for a code. He has been cooperative for the most part, although bizarre at other times. Review Of Systems Cardiovascular: Denies Chest pain or palpations GI: Denies Nausea, vomiting, or bowel changes Respiratory: Denies shortness of breath or cough Neuro: Denies dizziness, tremors Derm: Denies any rashes or pruritus MSK: Denies any muscle tightness or stiffness Psychotherapy None on this visit. Vital Signs Reviewed. Mental Status Examination General: Improved hygiene. Speech: Improved. Thought processes: More linear. MSK: Smooth and coordinated gait, no signs of tremors or involuntary orofacial movements. Thought content: Less bizarre. Abstract reasoning, and computation: Improved. Description of associations: Improved. Description of abnormal or psychotic thoughts: Denies any suicidal or homicidal ideation. Denies auditory or visual hallucinations. Does not appear to be responding to internal stimuli. Judgment: Improved. Insight: Improved. Orientation: Alert and orientated 3. Cognition: Grossly normal. Recent and remote memory: Intact. Attention span and concentration: Intact. Fund of knowledge: Adequate. Mood: "Fine." Affect: Less elated. More euthymic. Diagnoses Unspecified psychotic disorder. Schizophrenia versus substance-induced. Methamphetamine use disorder, severe. Cannabinoid use disorder, severe. Hallucinogen use disorder, severe Alcohol use disorder, unspecified. History of traumatic brain injury. Assessment and Plan Unspecified psychotic disorder: Continue Invega 6 mg daily. Loading dose of Sustenna ordered 234 mg today and on Thursday will get 154. History of TBI: Possibly related to patient's bizarre statements and screaming fits, unclear. Methamphetamine, cannabinoid and hallucinogen use disorder: Recommend outpatient rehab. Alcohol use disorder: We'll monitor if needs any CIWA, at this time does not appear to be demonstrating withdrawal or side effects. Disposition The patient will need to be continued to be monitored as he still has quite a bit of bizarre behavior. Further evaluation and adjustment could see him leave Thursday; however, it would be useful to have his brother comment on how the patient is doing to get him close to his baseline due to the history of TBI. Time Spent 15 minutes [id number]. Thursday Vital Signs Vital Signs Date Time Temp Pulse Resp B/P (MAP) Pulse Ox O2 Delivery O2 Flow Rate FiO2 05/13/19 08:57 113/66 05/13/19 06:14 98.0 87 18 05/11/19 06:28 Room Air Laboratory Data 24H Labs Laboratory Tests 2 05/12/19 16:58: Bedside Glucose (Misc Panel) 145H 05/13/19 06:50: Bedside Glucose (Misc Panel) 118H Current Medications Current Medications Medications (Trade) Dose Ordered Sig/Preston Route PRN Reason Start Time Stop Time Status Last Admin Dose Admin Acetaminophen (Tylenol Tab) 650 mg Q6HP PRN PO PAIN 05/05/19 22:30 05/08/19 16:03 Al Hydrox/Mg Hydrox/Simethicone (Mylanta) 30 ml Q4HP PRN PO HEARTBURN 05/08/19 14:45 05/08/19 15:14 Albuterol Sulfate (Proventil, Ventolin Hfa) 2 puff RQ4H PRN INH WHEEZING 05/05/19 13:30 Home Med (Med Rec Complete!) ASDIRECTED XX 05/04/19 22:15 05/04/19 22:06 DC Lisinopril (Prinivil) 20 mg DAILY PO 05/06/19 09:00 05/12/19 08:24 Lorazepam (Ativan) 2 mg STAT STAT PO 05/04/19 20:08 05/04/19 20:12 DC 05/04/19 20:21 Lorazepam (Ativan) 2 mg STAT STAT PO 05/04/19 21:21 05/04/19 21:22 DC 05/04/19 21:58 Magnesium Hydroxide (Milk Of Magnesia) 30 ml DAILYPRN PRN PO CONSTIPATION 05/08/19 14:45 Menthol/Methyl Salicylate (Bengay Cream) apply to both knees TIDP PRN TOP knee pain 05/08/19 16:15 05/10/19 13:51 Metformin HCl (Glucophage) 1,000 mg BID@0800,1800 PO 05/05/19 18:00 05/13/19 08:53 Mineral Oil (Fleet Oil Retention Enema) 1 ea DAILYPRN PRN [place] CONSTIPATION 05/04/19 20:15 05/05/19 11:27 DC Multivitamins (Theragram-M) 1 tab DAILY PO 05/05/19 09:00 05/13/19 08:53 Olanzapine (ZyPREXA ZYDIS) 10 mg Q6HP PRN PO ANXIETY/AGITATION 05/10/19 14:00 05/10/19 22:16 Paliperidone (Invega) 6 mg DAILY PO 05/09/19 09:00 05/13/19 08:53 Quetiapine Fumarate (SEROquel) 300 mg QHS PO 05/05/19 21:00 05/12/19 20:23 Trazodone HCl (Desyrel) 300 mg QHS PO 05/05/19 21:00 05/12/19 20:24 Zolpidem Tartrate (Ambien) 2.5 mg QHS PO 05/12/19 21:00 05/12/19 20:24 Allergies Coded Allergies: haloperidol (Verified Adverse Reaction, Unknown, unknown, 05/07/19) Per brother, there was a reaction in the past the prison. He was unable to describe the reaction. COLT MAIER DO May 13, 2019 09:21
[2019-05-13] MEDS ORDERED: PALIPERIDONE PALMITATE 234MG/1.5ML INJ (INVEGA)(J2426)(FREE PSY INPT ONLY) IM ONE (13:00)
[2019-05-13] MEDS: OLANZapine ORAL DISINTEGRATING TAB 5MG PO PRN (15:55)
[2019-05-13 16:04] VITALS: BP 137/80
[2019-05-13] MEDS: zolPIDEM TARTRATE 5 MG TAB PO SCH (20:15)
[2019-05-13] MEDS: QUEtiapine FUMARATE 100 MG TAB PO SCH (20:15)
[2019-05-13] MEDS: traZODone 100 MG TAB PO SCH (20:15)
[2019-05-14 06:34] VITALS: BP 125/70
[2019-05-14] MEDS: MULTIVITAMINS/MINERALS THERAP 1 TAB PO SCH (08:32)
[2019-05-14] MEDS: metFORMIN (GLUCOPHAGE) 1000 MG TABLET PO SCH ×2 (08:32→17:14)
[2019-05-14] MEDS: PALIPERIDONE 6 MG ER TAB (INVEGA) PO SCH (08:32)
[2019-05-14] MEDS: lisinopriL 20 MG TAB PO SCH (08:36)
[2019-05-14 15:55] VITALS: BP 90/53
[2019-05-14] MEDS: zolPIDEM TARTRATE 5 MG TAB PO SCH (20:24)
[2019-05-14] MEDS: traZODone 100 MG TAB PO SCH (20:25)
[2019-05-14] MEDS: QUEtiapine FUMARATE 100 MG TAB PO SCH (20:25)
[2019-05-15 06:40] VITALS: BP 107/55
[2019-05-15] MEDS: MULTIVITAMINS/MINERALS THERAP 1 TAB PO SCH (08:15)
[2019-05-15] MEDS: PALIPERIDONE 6 MG ER TAB (INVEGA) PO SCH (08:15)
[2019-05-15] MEDS: metFORMIN (GLUCOPHAGE) 1000 MG TABLET PO SCH ×2 (08:15→17:05)
[2019-05-15] MEDS: lisinopriL 20 MG TAB PO SCH (08:19)
[2019-05-15] MEDS: OLANZapine ORAL DISINTEGRATING TAB 5MG PO PRN (11:52)
[2019-05-15] MEDS: zolPIDEM TARTRATE 5 MG TAB PO SCH (20:23)
[2019-05-15] MEDS: QUEtiapine FUMARATE 100 MG TAB PO SCH (20:23)
[2019-05-15] MEDS: traZODone 100 MG TAB PO SCH (20:23)
[2019-05-16 06:40] VITALS: BP 114/71
[2019-05-16] MEDS: metFORMIN (GLUCOPHAGE) 1000 MG TABLET PO SCH ×2 (07:34→17:28)
[2019-05-16] MEDS ORDERED: PALIPERIDONE PALMITATE 156MG/1ML INJ(INVEGA)(J2426)(FREE PSY INPT ONLY) IM ONE (09:00)
[2019-05-16] MEDS ORDERED: **PENDING PPD ENTRY XX SCH (09:00)
[2019-05-16] MEDS: PALIPERIDONE 6 MG ER TAB (INVEGA) PO SCH (09:01)
[2019-05-16] MEDS: MULTIVITAMINS/MINERALS THERAP 1 TAB PO SCH (09:01)
[2019-05-16] MEDS: lisinopriL 20 MG TAB PO SCH (09:03)
[2019-05-16] MEDS ORDERED: TUBERCULIN PPD 5 UNITS/0.1 ML ID ONE (12:15)
[2019-05-16] MEDS: OLANZapine ORAL DISINTEGRATING TAB 5MG PO PRN ×2 (12:47→19:48)
--- NOTE | 2019-05-16 14:45 | REP ---
Clinical: Positive PPD test . Comparison: 05/04/2019 . Technique: PA and lateral. Findings: The mediastinum and cardiac silhouette are normal. The lung malhotra are clear and without acute consolidation, effusion, or pneumothorax. The skeletal structures are intact and normal. Impression: 1. No acute cardiopulmonary process. Electronically Signed by Natalio Stern MD 05/16/2019 02:36 P
[2019-05-16 16:35] VITALS: BP 118/78
[2019-05-16] MEDS: QUEtiapine FUMARATE 100 MG TAB PO SCH (20:04)
[2019-05-16] MEDS: traZODone 100 MG TAB PO SCH (20:04)
[2019-05-16] MEDS: zolPIDEM TARTRATE 5 MG TAB PO SCH (20:04)
[2019-05-17 06:05] VITALS: BP 100/53
[2019-05-17] MEDS: PALIPERIDONE 6 MG ER TAB (INVEGA) PO SCH (08:33)
[2019-05-17] MEDS: metFORMIN (GLUCOPHAGE) 1000 MG TABLET PO SCH ×2 (08:33→17:28)
[2019-05-17] MEDS: MULTIVITAMINS/MINERALS THERAP 1 TAB PO SCH (08:33)
[2019-05-17] MEDS: lisinopriL 20 MG TAB PO SCH (09:00)
[2019-05-17] MEDS: OLANZapine ORAL DISINTEGRATING TAB 5MG PO PRN (11:57)
--- NOTE | 2019-05-17 11:58 | MHIPN ---
DATE: 05/16/2019 VITAL SIGNS: Temperature 97.9, pulse 84, respirations 14, blood pressure 114/71. CURRENT MEDICATIONS: - Ambien 2.5 mg at bedtime as needed - Zyprexa 10 mg every 6 hours as needed - Invega 6 mg by mouth daily - trazodone 300 mg at bedtime - Seroquel 300 mg at bedtime - Invega Sustenna 156 mg IM q. monthly given today HISTORY OF PRESENT ILLNESS: This is a 54-year-old -[place] male living by himself at [facility] ([facility]). The patient has a history of schizophrenia and polysubstance use disorder. The patient has been seen and treated by Dr. Mario Orellana and is seen today by myself. The patient has episodes of agitation where he shouts and becomes physically aggressive. His thought content is quite jehovah's witness. He becomes agitated with other patients acting in a threatening fashion. For example, staff noted him shouting at another male patient that he "hates [id number]." The patient has received several loading doses of Invega Sustenna and appears to be tolerating it well. The patient has a history of substance use disorder, but his drugs of choice are methamphetamine and leona. His last use was just prior to admission apparently. MENTAL STATUS EXAMINATION: The patient is alert and oriented. At times he is pleasant and smiling appropriately, other times he becomes agitated and loud, acting in a threatening fashion. He appears to be responding to internal stimuli. He admits to auditory hallucinations. He is religiously preoccupied. He shows obvious signs of thought disorder. Speech is very loose, tangential with paranoid content. Insight and judgment appear impaired. Patient denies feeling depressed, no signs of tana. Cognitive functions appear intact. DIAGNOSES: Schizophrenia. History of traumatic brain injury (TBI). Polysubstance dependence with methamphetamine, cannabinoids and hallucinogens use disorders. Alcohol use disorder. PLAN: Continue present management. Add Ativan as needed to treat agitation. The patient is being switched to two status with possible transfer to [facility]. [facility]
[2019-05-17] MEDS: LORazepam 1 MG TAB PO PRN (12:17)
--- NOTE | 2019-05-17 14:02 | MHIPN ---
DATE: 05/17/2019 VITAL SIGNS: Temperature 99.9, pulse 103, respirations 16, blood pressure 100/53. CURRENT MEDICATIONS: - Ambien 2.5 mg at bedtime - Zyprexa 10 mg every 6 hours as needed - Invega 6 mg by mouth daily - trazodone 300 mg at bedtime - Seroquel 300 mg at bedtime HISTORY OF PRESENT ILLNESS: The patient is still showing episodic agitation in the therapeutic milieu. At times he will be pleasant and appropriate, other times he is shouting, talking to himself and is agitated about KIMI. He states his appetite is fine. He claims he is sleeping well at night. He admits that he gets angry about KIMI, but would never harm anyone here on the unit nor harm himself. MENTAL STATUS EXAMINATION: The patient is alert and oriented and reasonably cooperative. Behavior as noted above. He does report auditory hallucinations with obvious thought disorder. Insight and judgment remain impaired. No signs of depression or tana. Cognitive functions appear intact. DIAGNOSES: Schizophrenia, multiple episodes with acute decompensation. History of traumatic brain injury (TBI). Polysubstance dependence with methamphetamine, cannabinoids and hallucinogens use. Alcohol use disorder. PLAN: Continue present management. Staff working on to [facility] referral.
[2019-05-17 16:09] VITALS: BP 114/76
[2019-05-17] MEDS: traZODone 100 MG TAB PO SCH (20:38)
[2019-05-17] MEDS: QUEtiapine FUMARATE 100 MG TAB PO SCH (20:38)
[2019-05-17] MEDS: zolPIDEM TARTRATE 5 MG TAB PO SCH (20:38)
[2019-05-18 06:23] VITALS: BP 142/78
[2019-05-18] MEDS: metFORMIN (GLUCOPHAGE) 1000 MG TABLET PO SCH ×2 (07:42→17:00)
[2019-05-18] MEDS: PALIPERIDONE 6 MG ER TAB (INVEGA) PO SCH (07:55)
[2019-05-18] MEDS: LORazepam 1 MG TAB PO PRN ×3 (07:56→16:58)
[2019-05-18] MEDS: MULTIVITAMINS/MINERALS THERAP 1 TAB PO SCH (07:56)
[2019-05-18] MEDS: lisinopriL 20 MG TAB PO SCH (07:56)
[2019-05-18] MEDS ORDERED: PPD DOCUMENTATION ENTRY MISC ID SCH (10:00)
[2019-05-18] MEDS: OLANZapine ORAL DISINTEGRATING TAB 5MG PO PRN (10:01)
[2019-05-18 16:30] VITALS: BP 106/59
[2019-05-18] MEDS: MOM 30ML SUSPENSION UDC PO PRN (17:48)
[2019-05-18] MEDS: traZODone 100 MG TAB PO SCH (20:28)
[2019-05-18] MEDS: QUEtiapine FUMARATE 100 MG TAB PO SCH (20:28)
[2019-05-19 06:13] VITALS: BP 130/66
[2019-05-19] MEDS: MULTIVITAMINS/MINERALS THERAP 1 TAB PO SCH (08:44)
[2019-05-19] MEDS: metFORMIN (GLUCOPHAGE) 1000 MG TABLET PO SCH ×2 (08:44→17:11)
[2019-05-19] MEDS: PALIPERIDONE 6 MG ER TAB (INVEGA) PO SCH (08:44)
[2019-05-19] MEDS: lisinopriL 20 MG TAB PO SCH (08:48)
[2019-05-19] MEDS: LORazepam 1 MG TAB PO PRN (13:39)
[2019-05-19 15:59] VITALS: BP 120/46
--- NOTE | 2019-05-19 16:31 | MHIPN ---
DATE: 05/19/2019 VITAL SIGNS: Temperature 98.1, pulse 95, respirations 16, blood pressure 130/66. CURRENT MEDICATIONS: - Ativan 1 mg every 4 hours as needed - Zyprexa 10 mg every 6 hours as needed - Invega 6 mg daily by mouth - trazodone 300 mg at night - Seroquel 300 mg at night HISTORY OF PRESENT ILLNESS: The patient still is labile in the therapeutic milieu. At times he will be quiet and resting in his room and other times he gets loud and boisterous, shouting paranoid and pentecostalism themes. He is upset about babies being murdered by KIMI, for example. The patient has been cooperative with the medications. The patient is redirectable by staff when he does become agitated and he has not required restraints, physical or chemical. The patient is being worked up for possible [facility] [place] transfer. MENTAL STATUS EXAMINATION: The patient is alert, oriented. The patient is fairly cooperative. Medication compliance has been good. He does get agitated at times in the milieu but staff can redirect his behavior. He does struggle with auditory hallucinations. He has obvious thought disorder and labile mood. No signs of tana. Insight and judgment are quite impaired. Cognitive functions appear intact. DIAGNOSES: 1. Schizophrenia, multiple episodes with acute decompensation. 2. Rule out schizoaffective disorder with tana. 3. History of traumatic brain injury. 4. Polysubstance dependence with methamphetamine, cannabinoids and hallucinogenic use. 5. Alcohol use disorder. PLAN: Continue present management. Pending transfer to rodent exterminator care at [facility] [place].
[2019-05-19] MEDS: QUEtiapine FUMARATE 100 MG TAB PO SCH (20:18)
[2019-05-19] MEDS: traZODone 100 MG TAB PO SCH (20:18)
[2019-05-20 06:30] VITALS: BP 109/59
[2019-05-20] MEDS: metFORMIN (GLUCOPHAGE) 1000 MG TABLET PO SCH ×2 (08:46→17:18)
[2019-05-20] MEDS: MULTIVITAMINS/MINERALS THERAP 1 TAB PO SCH (08:46)
[2019-05-20] MEDS: PALIPERIDONE 6 MG ER TAB (INVEGA) PO SCH (08:50)
[2019-05-20] MEDS: lisinopriL 20 MG TAB PO SCH (08:51)
--- NOTE | 2019-05-20 08:56 | MHIPNPDOC ---
[facility] Progress Note Progress Note Inpatient Progress Note Néstor Ulloa MRN: N/A Date of : N/A Date of Service: 05/20/2019 History of Present Illness The patient is a 54-year-old man with a long history of schizophrenia and psychotic illness, presents after using multiple drugs including Sigrid and methamphetamine. The patient was met with; however, he was extremely poor historian, still mildly psychotic, he has been lying in bed for the most part. He still has bizarre behaviors unusual, preoccupation was saluting and an unusual disorganized way of engaging. He is able to only answer that he has had taken methamphetamine and Sigrid prior to coming in. Interval History The patient is met with today. He is become much more bizarre and the Invega has not helped much for his bizarre behavior and unusual mannerisms. He still has difficulty with screaming fits bizarrely marching around. He is able to respond to my questions, but appears to be elated and preoccupied, making problems with other patients by staring at them causing them to become quite upset. He is attending groups and has been generally amenable, although still quite odd. Review Of Systems Cardiovascular: Denies Chest pain or palpations GI: Denies Nausea, vomiting, or bowel changes Respiratory: Denies shortness of breath or cough Neuro: Denies dizziness, tremors Derm: Denies any rashes or pruritus MSK: Denies any muscle tightness or stiffness Psychotherapy None on this visit. Vital Signs Reviewed. Mental Status Examination General: Poor hygiene. Speech: Pressured. Thought processes: More linear. MSK: Smooth and coordinated gait, no signs of tremors or involuntary orofacial movements. Thought content: More bizarre. Abstract reasoning, and computation: Impaired. Description of associations: Impaired. Description of abnormal or psychotic thoughts: Denies any suicidal or homicidal ideation. Denies auditory or visual hallucinations. Does not appear to be responding to internal stimuli. Judgment: Impaired. Insight: Impaired. Orientation: Alert and orientated 3. Cognition: Grossly normal. Recent and remote memory: Intact. Attention span and concentration: Intact. Fund of knowledge: Adequate. Mood: "Great." Affect: Elated. Diagnoses Unspecified psychotic disorder. Schizophrenia versus substance-induced. Methamphetamine use disorder, severe. Cannabinoid use disorder, severe. Hallucinogen use disorder, severe Alcohol use disorder, unspecified. History of traumatic brain injury. Assessment and Plan Unspecified psychotic disorder: Discontinue Invega. Ordered clozapine 12.5 mg BID. ANC ordered. Discussed with patient risks, benefits and potential side effects. History of TBI: Possibly related to patient's bizarre statements and screaming fits, unclear. Methamphetamine, cannabinoid and hallucinogen use disorder: Recommend outpatient rehab. Alcohol use disorder: We'll monitor if needs any CIWA, at this time does not appear to be demonstrating withdrawal or side effects. Disposition [facility] as patient has made poor progress over his 2 weeks of admission. Time Spent 15 minutes [id number]. Thursday Vital Signs Vital Signs Date Time Temp Pulse Resp B/P (MAP) Pulse Ox O2 Delivery O2 Flow Rate FiO2 05/20/19 08:51 101/53 05/20/19 06:30 98.1 110 14 Room Air Laboratory Data 24H Labs Laboratory Tests 2 05/19/19 17:10: Bedside Glucose (Misc Panel) 125H 05/20/19 06:16: Bedside Glucose (Misc Panel) 94 Current Medications Current Medications Medications (Trade) Dose Ordered Sig/Preston Route PRN Reason Start Time Stop Time Status Last Admin Dose Admin Acetaminophen (Tylenol Tab) 650 mg Q6HP PRN PO PAIN 05/05/19 22:30 05/08/19 16:03 Al Hydrox/Mg Hydrox/Simethicone (Mylanta) 30 ml Q4HP PRN PO HEARTBURN 05/08/19 14:45 05/08/19 15:14 Albuterol Sulfate (Proventil, Ventolin Hfa) 2 puff RQ4H PRN INH WHEEZING 05/05/19 13:30 Clozapine (Clozaril) 12.5 mg BID PO 05/20/19 09:00 UNV Home Med (Med Rec Complete!) ASDIRECTED XX 05/04/19 22:15 05/04/19 22:06 DC Lisinopril (Prinivil) 20 mg DAILY PO 05/06/19 09:00 05/19/19 08:48 Lorazepam (Ativan) 1 mg Q4HP PRN PO ANXIETY 05/16/19 14:00 05/19/19 13:39 Lorazepam (Ativan) 2 mg STAT STAT PO 05/04/19 20:08 05/04/19 20:12 DC 05/04/19 20:21 Lorazepam (Ativan) 2 mg STAT STAT PO 05/04/19 21:21 05/04/19 21:22 DC 05/04/19 21:58 Magnesium Hydroxide (Milk Of Magnesia) 30 ml DAILYPRN PRN PO CONSTIPATION 05/08/19 14:45 05/18/19 17:48 Menthol/Methyl Salicylate (Bengay Cream) apply to both knees TIDP PRN TOP knee pain 05/08/19 16:15 05/10/19 13:51 Metformin HCl (Glucophage) 1,000 mg BID@0800,1800 PO 05/05/19 18:00 05/20/19 08:46 Mineral Oil (Fleet Oil Retention Enema) 1 ea DAILYPRN PRN [place] CONSTIPATION 05/04/19 20:15 05/05/19 11:27 DC Multivitamins (Theragram-M) 1 tab DAILY PO 05/05/19 09:00 05/20/19 08:46 Non-Formulary Medication ( See Comment Field Below ) SEE COMMENTS SECTION 1T@10 ID 05/18/19 10:00 05/16/19 13:36 DC Non-Formulary Medication ( See Comment Field Below ) SEE LABEL COMMENTS DAILY XX 05/16/19 09:00 05/16/19 14:26 DC Olanzapine (ZyPREXA ZYDIS) 10 mg Q6HP PRN PO ANXIETY/AGITATION 05/10/19 14:00 05/18/19 10:01 Paliperidone (Invega) 6 mg DAILY PO 05/09/19 09:00 05/20/19 08:48 DC 05/19/19 08:44 Quetiapine Fumarate (SEROquel) 300 mg QHS PO 05/05/19 21:00 05/19/19 20:18 Trazodone HCl (Desyrel) 300 mg QHS PO 05/05/19 21:00 05/19/19 20:18 Zolpidem Tartrate (Ambien) 2.5 mg QHS PO 05/12/19 21:00 05/18/19 10:04 DC 05/17/19 20:38 Allergies Coded Allergies: haloperidol (Verified Adverse Reaction, Unknown, unknown, 05/07/19) Per brother, there was a reaction in the past the assisted. He was unable to describe the reaction. COLT MAIER DO May 20, 2019 08:56
[2019-05-20 10:05] LABS: HEMATOCRIT 39.2 % (42.0-52.0); MEAN CORPUSCULAR HEMOGLOBIN 27.8 pg (27.0-33.0); MEAN CORPUSCULAR HGB CONC 33.2 g/dl (32.0-36.5); MEAN CORPUSCULAR VOLUME 83.8 fl (80.0-96.0); PLATELET COUNT, AUTOMATED 284 10^3/uL (150-450); RED BLOOD COUNT 4.68 10^6/uL (4.30-6.10)
[2019-05-20 10:08] LABS: WHITE BLOOD COUNT 8.5 10^3/uL (4.0-10.0)
[2019-05-20 10:25] LABS: ATYPICAL LYMPH 1 % (0-5); BASOPHILS 1 % (0-1); EOSINOPHILS 3 % (0-3); LYMPHOCYTES 64 % (16-44); MONOCYTES 8 % (0-5); NEUTROPHILS 23 % (28-66); PLATELET ESTIMATE NORMAL (NORMAL)
[2019-05-20] MEDS: cloZAPine 25 MG TAB (S0136) PO SCH ×2 (11:25→21:20)
[2019-05-20] MEDS: MOM 30ML SUSPENSION UDC PO PRN (16:00)
[2019-05-20 16:01] VITALS: BP 110/68
[2019-05-20] MEDS: OLANZapine ORAL DISINTEGRATING TAB 5MG PO PRN (16:06)
[2019-05-20] MEDS: LORazepam 1 MG TAB PO PRN (16:37)
[2019-05-20] MEDS: traZODone 100 MG TAB PO SCH (21:20)
[2019-05-20] MEDS: QUEtiapine FUMARATE 100 MG TAB PO SCH (21:20)
[2019-05-21 06:18] VITALS: BP 106/70
[2019-05-21] MEDS: PILL CUTTER 1 EACH XX PRN ×2 (08:41→20:49)
[2019-05-21] MEDS: cloZAPine 25 MG TAB (S0136) PO SCH ×2 (08:41→20:50)
[2019-05-21] MEDS: MULTIVITAMINS/MINERALS THERAP 1 TAB PO SCH (08:43)
[2019-05-21] MEDS: metFORMIN (GLUCOPHAGE) 1000 MG TABLET PO SCH ×2 (08:43→17:17)
[2019-05-21] MEDS: lisinopriL 20 MG TAB PO SCH (08:49)
[2019-05-21] MEDS: LORazepam 1 MG TAB PO PRN (12:10)
[2019-05-21 16:07] VITALS: BP 103/59
[2019-05-21] MEDS: QUEtiapine FUMARATE 100 MG TAB PO SCH (20:49)
[2019-05-21] MEDS: traZODone 100 MG TAB PO SCH (20:49)
[2019-05-22 05:54] VITALS: BP 120/67
[2019-05-22] MEDS: metFORMIN (GLUCOPHAGE) 1000 MG TABLET PO SCH ×2 (07:48→17:18)
[2019-05-22] MEDS: MULTIVITAMINS/MINERALS THERAP 1 TAB PO SCH (09:00)
[2019-05-22] MEDS: cloZAPine 25 MG TAB (S0136) PO SCH ×2 (09:00→20:17)
[2019-05-22] MEDS: PILL CUTTER 1 EACH XX PRN ×2 (09:00→20:17)
[2019-05-22] MEDS: lisinopriL 20 MG TAB PO SCH (09:05)
[2019-05-22] MEDS: MAALOX 30 ML SUSP *UDC PO PRN (16:23)
[2019-05-22 16:27] VITALS: BP 98/58
[2019-05-22] MEDS: QUEtiapine FUMARATE 100 MG TAB PO SCH (20:16)
[2019-05-22] MEDS: traZODone 100 MG TAB PO SCH (20:17)
[2019-05-23 05:49] VITALS: BP 116/75
[2019-05-23] MEDS: cloZAPine 25 MG TAB (S0136) PO SCH (09:44)
[2019-05-23] MEDS: lisinopriL 20 MG TAB PO SCH (09:44)
[2019-05-23] MEDS: MULTIVITAMINS/MINERALS THERAP 1 TAB PO SCH (09:44)
[2019-05-23] MEDS: metFORMIN (GLUCOPHAGE) 1000 MG TABLET PO SCH ×2 (09:44→16:58)
--- NOTE | 2019-05-23 10:32 | MHIPNPDOC ---
[facility] Progress Note Progress Note Inpatient Progress Note Néstor Ulloa MRN: N/A Date of : N/A Date of Service: 05/23/2019 History of Present Illness The patient is a 54-year-old man with a long history of schizophrenia and psychotic illness, presents after using multiple drugs including Sigrid and methamphetamine. The patient was met with; however, he was extremely poor historian, still mildly psychotic, he has been lying in bed for the most part. He still has bizarre behaviors unusual, preoccupation was saluting and an unusual disorganized way of engaging. He is able to only answer that he has had taken methamphetamine and Sigrid prior to coming in. Interval History The patient is met with today. He has had a notably difficult weekend with some outbursts that were primarily loud and unusual but with no violence. I discussed with the patient about potentially going to [place] as it might take some time for him to improve. He had been started on clozapine at a low dose, however his ANC demonstrated a low neutrophil count and thus he will need to be discontinued, discussed with the patient, he denies any side effects at this time or signs of infection. He reports that he is feeling "good." He still has some loud outbursts but has made some mild improvement. I discussed with him that if we can improve him quickly, he would potentially not need to go to [place]. He reports that his sleep is still problematic on the Seroquel. Review Of Systems Cardiovascular: Denies chest pain or palpitations GI: Denies Nausea, vomiting, or bowel changes Respiratory: Denies shortness of breath or cough Neuro: Denies dizziness, tremors Derm: Denies any rashes or pruritus MSK: Denies any muscle tightness or stiffness Psychotherapy None on this visit. Vital Signs Reviewed. Mental Status Examination General: Poor hygiene. Speech: Pressured. Thought processes: More linear. MSK: Smooth and coordinated gait, no signs of tremors or involuntary orofacial movements. Thought content: More bizarre. Abstract reasoning, and computation: Impaired. Description of associations: Impaired. Description of abnormal or psychotic thoughts: Denies any suicidal or homicidal ideation. Denies auditory or visual hallucinations. Does not appear to be responding to internal stimuli. Judgment: Impaired. Insight: Impaired. Orientation: Alert and orientated 3. Cognition: Grossly normal. Recent and remote memory: Intact. Attention span and concentration: Intact. Fund of knowledge: Adequate. Mood: "Great." Affect: Elated. Diagnoses Unspecified psychotic disorder. Schizophrenia versus substance-induced. Methamphetamine use disorder, severe. Cannabinoid use disorder, severe. Hallucinogen use disorder, severe Alcohol use disorder, unspecified. History of traumatic brain injury. Assessment and Plan Unspecified psychotic disorder/schizophrenia: Discontinue clozapine. ANC is low. We will order serial CBCs with differential for the next several days in order to monitor return. We will start Prolixin 5 mg nightly, discussed the risks, benefits and potential side effects with patient. Increase Seroquel to 400 mg ni ghtly. History of TBI: Possibly related to patient's bizarre statements and screaming fits, unclear. Methamphetamine, cannabinoid and hallucinogen use disorder: Recommend outpatient rehab. Alcohol use disorder: Stable, no signs of withdrawal. Disposition Patient will need continued admission for his psychotic symptoms, loud outbursts and inability to care for self. Time Spent 15 minutes [id number]. Thursday Vital Signs Vital Signs Date Time Temp Pulse Resp B/P (MAP) Pulse Ox O2 Delivery O2 Flow Rate FiO2 05/23/19 09:44 116/75 05/23/19 05:49 98.5 102 16 05/20/19 06:30 Room Air Laboratory Data 24H Labs Laboratory Tests 2 05/22/19 16:21: Bedside Glucose (Misc Panel) 144H 05/23/19 06:28: Bedside Glucose (Misc Panel) 92 Current Medications Current Medications Medications (Trade) Dose Ordered Sig/Preston Route PRN Reason Start Time Stop Time Status Last Admin Dose Admin Acetaminophen (Tylenol Tab) 650 mg Q6HP PRN PO PAIN 05/05/19 22:30 05/08/19 16:03 Al Hydrox/Mg Hydrox/Simethicone (Mylanta) 30 ml Q4HP PRN PO HEARTBURN 05/08/19 14:45 05/22/19 16:23 Albuterol Sulfate (Proventil, Ventolin Hfa) 2 puff RQ4H PRN INH WHEEZING 05/05/19 13:30 Clozapine (Clozaril) 12.5 mg BID PO 05/20/19 09:00 05/23/19 09:44 Home Med (Med Rec Complete!) ASDIRECTED XX 05/04/19 22:15 05/04/19 22:06 DC Lisinopril (Prinivil) 20 mg DAILY PO 05/06/19 09:00 05/23/19 09:44 Lorazepam (Ativan) 1 mg Q4HP PRN PO ANXIETY 05/16/19 14:00 05/21/19 12:10 Lorazepam (Ativan) 2 mg STAT STAT PO 05/04/19 20:08 05/04/19 20:12 DC 05/04/19 20:21 Lorazepam (Ativan) 2 mg STAT STAT PO 05/04/19 21:21 05/04/19 21:22 DC 05/04/19 21:58 Magnesium Hydroxide (Milk Of Magnesia) 30 ml DAILYPRN PRN PO CONSTIPATION 05/08/19 14:45 05/20/19 16:00 Menthol/Methyl Salicylate (Bengay Cream) apply to both knees TIDP PRN TOP knee pain 05/08/19 16:15 05/10/19 13:51 Metformin HCl (Glucophage) 1,000 mg BID@0800,1800 PO 05/05/19 18:00 05/23/19 09:44 Mineral Oil (Fleet Oil Retention Enema) 1 ea DAILYPRN PRN [place] CONSTIPATION 05/04/19 20:15 05/05/19 11:27 DC Multivitamins (Theragram-M) 1 tab DAILY PO 05/05/19 09:00 05/23/19 09:44 Non-Formulary Medication ( See Comment Field Below ) SEE COMMENTS SECTION 1T@10 ID 05/18/19 10:00 05/16/19 13:36 DC Non-Formulary Medication ( See Comment Field Below ) SEE LABEL COMMENTS DAILY XX 05/16/19 09:00 05/16/19 14:26 DC Olanzapine (ZyPREXA ZYDIS) 10 mg Q6HP PRN PO ANXIETY/AGITATION 05/10/19 14:00 05/20/19 16:06 Paliperidone (Invega) 6 mg DAILY PO 05/09/19 09:00 05/20/19 08:48 DC 05/20/19 08:50 Quetiapine Fumarate (SEROquel) 300 mg QHS PO 05/05/19 21:00 05/22/19 20:16 Trazodone HCl (Desyrel) 300 mg QHS PO 05/05/19 21:00 05/22/19 20:17 Zolpidem Tartrate (Ambien) 2.5 mg QHS PO 05/12/19 21:00 05/18/19 10:04 DC 05/17/19 20:38 Allergies Coded Allergies: haloperidol (Verified Adverse Reaction, Unknown, unknown, 05/07/19) Per brother, there was a reaction in the past the prison. He was unable to describe the reaction. COLT MAIER DO May 23, 2019 10:32
[2019-05-23 15:12] VITALS: BP 106/54
[2019-05-23] MEDS: traZODone 100 MG TAB PO SCH (20:13)
[2019-05-23] MEDS ORDERED: QUEtiapine FUMARATE 200 MG TAB PO SCH (21:00)
[2019-05-24 06:25] VITALS: BP 122/64
[2019-05-24 09:23] LABS: BASO % 0.5 % (0.0-1.0); EOS # 0.3 10^3/uL (0.0-0.5); EOS % 4.7 % (0.0-3.0); HEMATOCRIT 38.8 % (42.0-52.0); LYMPH # 3.2 10^3/uL (1.5-5.0); LYMPH % 58.4 % (24.0-44.0); MEAN CORPUSCULAR HEMOGLOBIN 28.1 pg (27.0-33.0); MEAN CORPUSCULAR HGB CONC 33.5 g/dl (32.0-36.5); MONO # 0.4 10^3/uL (0.0-0.8); MONO % 6.3 % (0.0-5.0); NEUTROPHILS # 1.7 10^3/uL (1.5-8.5); NEUTROPHILS % 29.9 % (36.0-66.0); PLATELET COUNT, AUTOMATED 244 10^3/uL (150-450); RED BLOOD COUNT 4.62 10^6/uL (4.30-6.10); WHITE BLOOD COUNT 5.5 10^3/uL (4.0-10.0)
[2019-05-24] MEDS: metFORMIN (GLUCOPHAGE) 1000 MG TABLET PO SCH ×2 (10:19→17:15)
[2019-05-24] MEDS: lisinopriL 20 MG TAB PO SCH (10:20)
[2019-05-24] MEDS: MULTIVITAMINS/MINERALS THERAP 1 TAB PO SCH (10:20)
--- NOTE | 2019-05-24 10:52 | MHIPNPDOC ---
[facility] Progress Note Progress Note Inpatient Progress Note Néstor Ulloa MRN: N/A Date of : N/A Date of Service: 05/24/2019 History of Present Illness The patient is a 54-year-old man with a long history of schizophrenia and psychotic illness, presents after using multiple drugs including Sigrid and methamphetamine. The patient was met with; however, he was extremely poor historian, still mildly psychotic, he has been lying in bed for the most part. He still has bizarre behaviors unusual, preoccupation was saluting and an unusual disorganized way of engaging. He is able to only answer that he has had taken methamphetamine and Sigrid prior to coming in. Interval History The patient is met with today. He has made some significant improvements. He r eports that he has been doing better. His thought process is more clear. He has had no outbursts recently and feels the Prolixin has been helpful. He reports he had a good night sleep. He denied any further signs especially any signs of infection. His ANC redrawn is roughly 1600. ANC which is within the normal range, although slightly depressed from his previous. He has been doing while attending groups, amenable and has become more able to discuss things unless disorganized per nursing staff. Review Of Systems Cardiovascular: Denies chest pain or palpitations GI: Denies Nausea, vomiting, or bowel changes Respiratory: Denies shortness of breath or cough Neuro: Denies dizziness, tremors Derm: Denies any rashes or pruritus MSK: Denies any muscle tightness or stiffness Psychotherapy None on this visit. Vital Signs Reviewed. Mental Status Examination General: Improved hygiene. Speech: Improved. Thought processes: More linear. MSK: Smooth and coordinated gait, no signs of tremors or involuntary orofacial movements. Thought content: No bizarre thoughts detected. Abstract reasoning, and computation: Improved. Description of associations: Improved. Description of abnormal or psychotic thoughts: Denies any suicidal or homicidal ideation. Denies auditory or visual hallucinations. Does not appear to be responding to internal stimuli. Judgment: Improved. Insight: Improved. Orientation: Alert and orientated 3. Cognition: Grossly normal. Recent and remote memory: Intact. Attention span and concentration: Intact. Fund of knowledge: Adequate. Mood: "Great." Affect: Less elated. Diagnoses Unspecified psychotic disorder. Schizophrenia versus substance-induced. Methamphetamine use disorder, severe. Cannabinoid use disorder, severe. Hallucinogen use disorder, severe Alcohol use disorder, unspecified. History of traumatic brain injury. Assessment and Plan Unspecified psychotic disorder/schizophrenia: Increased Seroquel to 500 mg nightly, increased Prolixin 10 mg nightly. Continue to monitor ANC for improvement. Consult to medicine if does not resolve. History of TBI: Possibly related to patient's bizarre statements and screaming fits, unclear. Methamphetamine, cannabinoid and hallucinogen use disorder: Recommend outpatient rehab. Alcohol use disorder: Stable, no signs of withdrawal. Disposition Patient will need continued admission for his psychotic symptoms, loud outbursts and inability to care for self. Time Spent 15 minutes [id number]. Thursday Vital Signs Vital Signs Date Time Temp Pulse Resp B/P (MAP) Pulse Ox O2 Delivery O2 Flow Rate FiO2 05/24/19 10:20 122/64 05/24/19 06:25 98.5 98 16 05/20/19 06:30 Room Air Laboratory Data 24H Labs Laboratory Tests 2 05/23/19 16:57: Bedside Glucose (Misc Panel) 138H 05/24/19 06:30: Bedside Glucose (Misc Panel) 90 05/24/19 09:03: Immature Granulocyte % (Auto) 0.2, Neutrophils (%) (Auto) 29.9L, Lymphocytes (%) (Auto) 58.4H, Monocytes (%) (Auto) 6.3H, Eosinophils (%) (Auto) 4.7H, Basophils (%) (Auto) 0.5, Neutrophils # (Auto) 1.7, Lymphocytes # (Auto) 3.2, Monocytes # (Auto) 0.4, Eosinophils # (Auto) 0.3, Basophils # (Auto) 0.0, Nucleated Red Blood Cells % (auto) 0.0 CBC/BMP Laboratory Tests 05/24/19 09:03 Current Medications Current Medications Medications (Trade) Dose Ordered Sig/Preston Route PRN Reason Start Time Stop Time Status Last Admin Dose Admin Acetaminophen (Tylenol Tab) 650 mg Q6HP PRN PO PAIN 05/05/19 22:30 05/08/19 16:03 Al Hydrox/Mg Hydrox/Simethicone (Mylanta) 30 ml Q4HP PRN PO HEARTBURN 05/08/19 14:45 05/22/19 16:23 Albuterol Sulfate (Proventil, Ventolin Hfa) 2 puff RQ4H PRN INH WHEEZING 05/05/19 13:30 Clozapine (Clozaril) 12.5 mg BID PO 05/20/19 09:00 05/23/19 12:35 DC 05/23/19 09:44 Fluphenazine HCl (Prolixin) 5 mg QHS PO 05/23/19 21:00 05/23/19 20:13 Home Med (Med Rec Complete!) ASDIRECTED XX 05/04/19 22:15 05/04/19 22:06 DC Lisinopril (Prinivil) 20 mg DAILY PO 05/06/19 09:00 05/24/19 10:20 Lorazepam (Ativan) 1 mg Q4HP PRN PO ANXIETY 05/16/19 14:00 05/23/19 13:59 DC 05/21/19 12:10 Lorazepam (Ativan) 2 mg STAT STAT PO 05/04/19 20:08 05/04/19 20:12 DC 05/04/19 20:21 Lorazepam (Ativan) 2 mg STAT STAT PO 05/04/19 21:21 05/04/19 21:22 DC 05/04/19 21:58 Magnesium Hydroxide (Milk Of Magnesia) 30 ml DAILYPRN PRN PO CONSTIPATION 05/08/19 14:45 05/20/19 16:00 Menthol/Methyl Salicylate (Bengay Cream) apply to both knees TIDP PRN TOP knee pain 05/08/19 16:15 05/10/19 13:51 Metformin HCl (Glucophage) 1,000 mg BID@0800,1800 PO 05/05/19 18:00 05/24/19 10:19 Mineral Oil (Fleet Oil Retention Enema) 1 ea DAILYPRN PRN [place] CONSTIPATION 05/04/19 20:15 05/05/19 11:27 DC Multivitamins (Theragram-M) 1 tab DAILY PO 05/05/19 09:00 05/24/19 10:20 Non-Formulary Medication ( See Comment Field Below ) SEE COMMENTS SECTION 1T@10 ID 05/18/19 10:00 05/16/19 13:36 DC Non-Formulary Medication ( See Comment Field Below ) SEE LABEL COMMENTS DAILY XX 05/16/19 09:00 12/23/19 14:26 DC Olanzapine (ZyPREXA ZYDIS) 10 mg Q6HP PRN PO ANXIETY/AGITATION 05/10/19 14:00 05/20/19 16:06 Paliperidone (Invega) 6 mg DAILY PO 05/09/19 09:00 05/20/19 08:48 DC 05/20/19 08:50 Quetiapine Fumarate (SEROquel) 300 mg QHS PO 05/05/19 21:00 05/23/19 12:43 DC 05/22/19 20:16 Quetiapine Fumarate (SEROquel) 400 mg QHS PO 05/23/19 21:00 05/23/19 20:13 Trazodone HCl (Desyrel) 300 mg QHS PO 05/05/19 21:00 05/23/19 20:13 Zolpidem Tartrate (Ambien) 2.5 mg QHS PO 05/12/19 21:00 05/18/19 10:04 DC 05/17/19 20:38 Allergies Coded Allergies: haloperidol (Verified Adverse Reaction, Unknown, unknown, 05/07/19) Per brother, there was a reaction in the past the long-term. He was unable to describe the reaction. COLT MAIRE DO May 24, 2019 10:52
[2019-05-24 17:29] VITALS: BP 110/73
[2019-05-24] MEDS: PILL CUTTER 1 EACH XX PRN (20:21)
[2019-05-24] MEDS: traZODone 100 MG TAB PO SCH (20:21)
[2019-05-24] MEDS: QUEtiapine FUMARATE 200 MG TAB PO SCH (20:21)
[2019-05-25 06:39] VITALS: BP 138/73
[2019-05-25] MEDS: metFORMIN (GLUCOPHAGE) 1000 MG TABLET PO SCH ×2 (08:17→17:12)
[2019-05-25] MEDS: MULTIVITAMINS/MINERALS THERAP 1 TAB PO SCH (08:17)
[2019-05-25] MEDS: lisinopriL 20 MG TAB PO SCH (08:21)
[2019-05-25 09:15] LABS: BASO % 0.6 % (0.0-1.0); EOS # 0.2 10^3/uL (0.0-0.5); EOS % 4.3 % (0.0-3.0); HEMATOCRIT 36.3 % (42.0-52.0); HEMOGLOBIN 12.7 g/dl (13.5-17.5); MEAN CORPUSCULAR HEMOGLOBIN 28.7 pg (27.0-33.0); MEAN CORPUSCULAR VOLUME 81.9 fl (80.0-96.0); MONO # 0.3 10^3/uL (0.0-0.8); MONO % 6.2 % (0.0-5.0); NEUTROPHILS # 1.5 10^3/uL (1.5-8.5); NEUTROPHILS % 29.7 % (36.0-66.0); PLATELET COUNT, AUTOMATED 235 10^3/uL (150-450); RED BLOOD COUNT 4.43 10^6/uL (4.30-6.10); WHITE BLOOD COUNT 5.2 10^3/uL (4.0-10.0)
[2019-05-25 15:26] VITALS: BP 118/68
[2019-05-25] MEDS: traZODone 100 MG TAB PO SCH (20:22)
[2019-05-25] MEDS: QUEtiapine FUMARATE 200 MG TAB PO SCH (20:22)
[2019-05-26 06:17] VITALS: BP 119/60
--- NOTE | 2019-05-26 08:43 | MHIPNPDOC ---
[facility] Progress Note Progress Note Inpatient Progress Note Néstor Ulloa MRN: N/A Date of : N/A Date of Service: 05/26/2019 History of Present Illness The patient is a 54-year-old man with a long history of schizophrenia and psychotic illness, presents after using multiple drugs including Sigrid and methamphetamine. The patient was met with; however, he was extremely poor historian, still mildly psychotic, he has been lying in bed for the most part. He still has bizarre behaviors unusual, preoccupation was saluting and an unusual disorganized way of engaging. He is able to only answer that he has had taken methamphetamine and Sigrid prior to coming in. Interval History The patient is met with today. He reports that he is doing much better. Staffing report that he has been much improved, less bizarre, more organized and able to participate better in programming. The patient reports he is feeling better, but wonders whether going straight to rehab would be an option. Discussed with patient at length that as he approaches psychiatric stability that referrals can be made, but that he may have an interval time where he returns back to his prev ious living situation before going to rehab as they require psychiatric stability in order to admit people to the voluntary programs. The patient reports he is tolerating the medications well. He denies any signs of infection or any fever or other concerns. His ANC still remains normal, although slightly depressed from his baseline that was taken prior. The patient has been off clozapine for close to a week. Clozaril guidelines state that patient does not need to be taken off of it for a normal ANC of 1600, but they have remained fairly constant, suggesting a possible secondary or incidental infection as the change in clozapine has not changed the ANC. Review Of Systems Cardiovascular: Denies chest pain or palpitations GI: Denies Nausea, vomiting, or bowel changes Respiratory: Denies shortness of breath or cough Neuro: Denies dizziness, tremors Derm: Denies any rashes or pruritus MSK: Denies any muscle tightness or stiffness Psychotherapy None on this visit. Vital Signs Reviewed. Mental Status Examination General: Well dressed with good hygiene Speech: Spontaneous and fluid Thought processes: Linear and logical MSK: Smooth and coordinated gait, no signs of tremors or involuntary orofacial movements Thought content: Future orientated Abstract reasoning, and computation: Intact Description of associations: Intact Description of abnormal or psychotic thoughts: Denies any suicidal or homicidal ideation. Denies any auditory or visual hallucinations. Does not appear to be responding to internal stimuli. Does not appear to be endorsing any bizarre or paranoid ideation. Judgment: fair Insight: fair Orientation: Alert and orientated 3 Cognition: Grossly normal Recent and remote memory: Intact Attention span and concentration: Intact Fund of knowledge: Adequate Mood: "okay" Affect: Euthymic with a full range Diagnoses Schizophrenia. Methamphetamine use disorder, severe. Cannabinoid use disorder, severe. Hallucinogen use disorder, severe Alcohol use disorder, unspecified. History of traumatic brain injury. Assessment and Plan Unspecified psychotic disorder/schizophrenia: Continue Seroquel 500 mg nightly. Continue Prolixin 10 mg nightly. ANC within normal range. Patient will follow up with outpatient medical. No signs of infection or other complaints at this time. History of TBI: Recommend outpatient neuropsych testing. Methamphetamine, cannabinoid and hallucinogen use disorder: Recommend outpatient rehab. Alcohol use disorder: Stable, no signs of withdrawal. Disposition Discharge tomorrow. Time Spent 15 minutes [id number]. Vital Signs Vital Signs Date Time Temp Pulse Resp B/P (MAP) Pulse Ox O2 Delivery O2 Flow Rate FiO2 05/26/19 06:17 98.6 95 18 119/60 (79) 05/25/19 06:39 Room Air Laboratory Data 24H Labs Laboratory Tests 2 05/25/19 09:02: Immature Granulocyte % (Auto) 0.2, Neutrophils (%) (Auto) 29.7L, Lymphocytes (%) (Auto) 59.0H, Monocytes (%) (Auto) 6.2H, Eosinophils (%) (Auto) 4.3H, Basophils (%) (Auto) 0.6, Neutrophils # (Auto) 1.5, Lymphocytes # (Auto) 3.0, Monocytes # (Auto) 0.3, Eosinophils # (Auto) 0.2, Basophils # (Auto) 0.0, Nucleated Red Blood Cells % (auto) 0.0 05/25/19 16:19: Bedside Glucose (Misc Panel) 95 05/26/19 06:32: Bedside Glucose (Misc Panel) 85 CBC/BMP Laboratory Tests 05/25/19 09:02 Current Medications Current Medications Medications (Trade) Dose Ordered Sig/Preston Route PRN Reason Start Time Stop Time Status Last Admin Dose Admin Acetaminophen (Tylenol Tab) 650 mg Q6HP PRN PO PAIN 05/05/19 22:30 05/08/19 16:03 Al Hydrox/Mg Hydrox/Simethicone (Mylanta) 30 ml Q4HP PRN PO HEARTBURN 05/08/19 14:45 05/22/19 16:23 Albuterol Sulfate (Proventil, Ventolin Hfa) 2 puff RQ4H PRN INH WHEEZING 05/05/19 13:30 Clozapine (Clozaril) 12.5 mg BID PO 05/20/19 09:00 05/23/19 12:35 DC 05/23/19 09:44 Fluphenazine HCl (Prolixin) 5 mg QHS PO 05/23/19 21:00 05/24/19 11:26 DC 05/23/19 20:13 Fluphenazine HCl (Prolixin) 10 mg QHS PO 05/24/19 21:00 05/25/19 20:22 Home Med (Med Rec Complete!) ASDIRECTED XX 05/04/19 22:15 05/04/19 22:06 DC Lisinopril (Prinivil) 20 mg DAILY PO 05/06/19 09:00 05/25/19 08:21 Lorazepam (Ativan) 1 mg Q4HP PRN PO ANXIETY 05/16/19 14:00 05/23/19 13:59 DC 05/21/19 12:10 Lorazepam (Ativan) 2 mg STAT STAT PO 05/04/19 20:08 05/04/19 20:12 DC 05/04/19 20:21 Lorazepam (Ativan) 2 mg STAT STAT PO 05/04/19 21:21 05/04/19 21:22 DC 05/04/19 21:58 Magnesium Hydroxide (Milk Of Magnesia) 30 ml DAILYPRN PRN PO CONSTIPATION 05/08/19 14:45 05/20/19 16:00 Menthol/Methyl Salicylate (Bengay Cream) apply to both knees TIDP PRN TOP knee pain 05/08/19 16:15 05/10/19 13:51 Metformin HCl (Glucophage) 1,000 mg BID@0800,1800 PO 05/05/19 18:00 05/25/19 17:12 Mineral Oil (Fleet Oil Retention Enema) 1 ea DAILYPRN PRN [place] CONSTIPATION 05/04/19 20:15 05/05/19 11:27 DC Multivitamins (Theragram-M) 1 tab DAILY PO 05/05/19 09:00 05/25/19 08:17 Non-Formulary Medication ( See Comment Field Below ) SEE COMMENTS SECTION 1T@10 ID 05/18/19 10:00 05/16/19 13:36 DC Non-Formulary Medication ( See Comment Field Below ) SEE LABEL COMMENTS DAILY XX 05/16/19 09:00 05/16/19 14:26 DC Olanzapine (ZyPREXA ZYDIS) 10 mg Q6HP PRN PO ANXIETY/AGITATION 05/10/19 14:00 05/20/19 16:06 Paliperidone (Invega) 6 mg DAILY PO 05/09/19 09:00 05/20/19 08:48 DC 05/20/19 08:50 Quetiapine Fumarate (SEROquel) 300 mg QHS PO 05/05/19 21:00 05/23/19 12:43 DC 05/22/19 20:16 Quetiapine Fumarate (SEROquel) 400 mg QHS PO 05/23/19 21:00 05/24/19 11:26 DC 05/23/19 20:13 Quetiapine Fumarate (SEROquel) 500 mg QHS PO 05/24/19 21:00 05/25/19 20:22 Trazodone HCl (Desyrel) 300 mg QHS PO 05/05/19 21:00 05/25/19 20:22 Zolpidem Tartrate (Ambien) 2.5 mg QHS PO 05/12/19 21:00 05/18/19 10:04 DC 05/17/19 20:38 Allergies Coded Allergies: haloperidol (Verified Adverse Reaction, Unknown, unknown, 05/07/19) Per brother, there was a reaction in the past the sn[facility]. He was unable to describe the reaction. COLT MAIER DO May 26, 2019 08:43
[2019-05-26] MEDS: lisinopriL 20 MG TAB PO SCH (08:58)
[2019-05-26] MEDS: metFORMIN (GLUCOPHAGE) 1000 MG TABLET PO SCH ×2 (08:58→17:45)
[2019-05-26] MEDS: MULTIVITAMINS/MINERALS THERAP 1 TAB PO SCH (08:58)
[2019-05-26 09:31] LABS: BASO % 0.4 % (0.0-1.0); EOS # 0.3 10^3/uL (0.0-0.5); EOS % 5.9 % (0.0-3.0); HEMATOCRIT 37.8 % (42.0-52.0); HEMOGLOBIN 12.4 g/dl (13.5-17.5); LYMPH # 3.3 10^3/uL (1.5-5.0); LYMPH % 58.5 % (24.0-44.0); MEAN CORPUSCULAR HEMOGLOBIN 27.4 pg (27.0-33.0); MEAN CORPUSCULAR HGB CONC 32.8 g/dl (32.0-36.5); MEAN CORPUSCULAR VOLUME 83.6 fl (80.0-96.0); MONO # 0.3 10^3/uL (0.0-0.8); MONO % 5.9 % (0.0-5.0); NEUTROPHILS # 1.6 10^3/uL (1.5-8.5); NEUTROPHILS % 29.1 % (36.0-66.0); PLATELET COUNT, AUTOMATED 234 10^3/uL (150-450); RED BLOOD COUNT 4.52 10^6/uL (4.30-6.10); WHITE BLOOD COUNT 5.6 10^3/uL (4.0-10.0)
[2019-05-26] MEDS ORDERED: TRAZ10TA PO (11:00)
[2019-05-26] MEDS ORDERED: QUET200T2 PO (11:00)
[2019-05-26] MEDS ORDERED: FLUP5TA PO (11:00)
[2019-05-26 18:00] VITALS: BP 115/73
[2019-05-26] MEDS: OLANZapine ORAL DISINTEGRATING TAB 5MG PO PRN (19:36)
[2019-05-26] MEDS: traZODone 100 MG TAB PO SCH (20:03)
[2019-05-26] MEDS: QUEtiapine FUMARATE 200 MG TAB PO SCH (20:04)
[2019-05-27 06:24] VITALS: BP 109/79
[2019-05-27 09:10] VITALS: BP 129/79
[2019-05-27] MEDS: lisinopriL 20 MG TAB PO SCH (09:10)
[2019-05-27] MEDS: MULTIVITAMINS/MINERALS THERAP 1 TAB PO SCH (09:10)
[2019-05-27] MEDS: metFORMIN (GLUCOPHAGE) 1000 MG TABLET PO SCH (09:10)
--- NOTE | 2019-05-27 10:17 | MHDSPDOC ---
[facility] Discharge Summary Discharge Summary DATE OF ADMISSION: May 05, 2019 at 10:28 DATE OF DISCHARGE: 05/27/18 Discharge Néstor lUloa MRN: N/A Date of : N/A Date of Service: 05/27/2019 Diagnoses Schizophrenia. Methamphetamine use disorder, severe. Cannabinoid use disorder, severe. Hallucinogen use disorder, severe Alcohol use disorder, unspecified. History of traumatic brain injury. History of Present Illness The patient is a 54-year-old man with a long history of schizophrenia and psychotic illness, presents after using multiple drugs including Sigrid and methamphetamine. The patient was met with; however, he was extremely poor historian, still mildly psychotic, he has been lying in bed for the most part. H e still has bizarre behaviors unusual, preoccupation was saluting and an unusual disorganized way of engaging. He is able to only answer that he has had taken methamphetamine and Sigrid prior to coming in. Consultants Involved Hospitalist/PCP screening Treatment and Progress On The Unit The patient was admitted to the inpatient unit where he was notably psychotic although pleasant. He had multiple episodes of screaming fits and unusual behavior. He was subsequently tried on oral paliperidone, which was ineffective at close to maximum dose. We were unable to engage in getting Invhammad Nuñezza. The patient's substance-induced psychosis appeared to resolve, but he still remained relatively difficult to interview, disorganized and unable to care for himself. After we spoke about potential long-term, the patient was amenable to trying more intensive options. We had tried clozapine, however, he had a drop in his neutrophils from his baseline, however, not so much that they went below the normal range. After discussion with the patient. he elected to trying a medicine such as Prolixin and increasing his Seroquel. which should help him sleep more, which he reports is a consistent problem. He was increased from 300 mg of Seroquel to a total of 500 mg nightly augmented with Prolixin increased at 10 mg total with positive results. His ANC was monitored for several days in a row where it remained stable, still within the normal range of roughly 1600. Discussed with patient, over time he reported no signs of infection or other side effects consistent with any problems. Even after several days of discontinuing the clozapine, his levels still were suppressed from their baseline, however, they were still normal. Clozapine recommendations indicate no hematology consultation at this time. Discussed with patient about following up with his outpatient primary care, which we will make an appointment for him in order to understand and see if this continues as to whether any further treatment is needed. At this time, the patient had returned to baseline status, was not psychotic and was interested in going to rehab. The patient described that he had wished to go to inpatient rehab directly from the inpatient, however, he had achieved psychiatric stability and the referrals would take dalila ral weeks. The patient was given appropriate referrals and options to help maintain sobriety. Discharge Assessment The patient, a 54-year-old man with schizophrenia and multiple substance use problems, presents psychotic and needing inpatient admission. He does well after multiple different trials of medication. On the day of discharge, he does not meet involuntary criteria as he is no longer psychotic. He is much more organized, has a normal mental status exam, friendly amenable with no behavioral control problems. He is denying any suicidal or homicidal ideation through the entirety of his stay. He does not meet involuntary criteria due to these factors. In my opinion, he declines further voluntary admission and will follow up with outpatient substance abuse/rehab. Patient will follow up with outpatient medical provider to determine if there is any need to act on the changes in la boratory values that have occurred without any reported symptoms. Mental Status Examination General: Well dressed with good hygiene Speech: Spontaneous and fluid Thought processes: Linear and logical MSK: Smooth and coordinated gait, no signs of tremors or involuntary orofacial movements Thought content: Future orientated Abstract reasoning, and computation: Intact Description of associations: Intact Description of abnormal or psychotic thoughts: Denies any suicidal or homicidal ideation. Denies any auditory or visual hallucinations. Does not appear to be responding to internal stimuli. Does not appear to be endorsing any bizarre or paranoid ideation. Judgment: fair Insight: fair Orientation: Alert and orientated 3 Cognition: Grossly normal Recent and remote memory: Intact Attention span and concentration: Intact Fund of knowledge: Adequate Mood: "okay" Affect: Euthymic with a full range Follow Up The social work team worked during the predischarge meeting in order to evaluate for further issues of lethality address them fully before discharge. They worked on safety planning with the patient's family members in order to ensure that the patient will have a safe and effective discharge. Time Spent The amount of time spent in the coordination of care for this patient was approximately 60 minutes. Thursday Vital Signs/I&Os Vital Signs Date Time Temp Pulse Resp B/P (MAP) Pulse Ox O2 Delivery O2 Flow Rate FiO2 05/27/19 09:10 129/79 05/27/19 06:24 98.6 82 16 Room Air Laboratory Data Labs 24H Laboratory Tests 2 05/26/19 17:05: Bedside Glucose (Misc Panel) 72 05/27/19 06:18: Bedside Glucose (Misc Panel) 87 Medications Scheduled Fluphenazine HCl (Fluphenazine HCl) 5 Mg Tablet, 10 MG PO QHS for thoughts for 7 Days, #14 Lisinopril (Lisinopril) 20 Mg Tablet, 20 MG PO DAILY, (Reported) Metformin HCl (Metformin HCl) 1,000 Mg Tab, 1,000 MG PO BID, (Reported) Quetiapine Fumarate (Quetiapine Fumarate) 200 Mg Tablet, 500 MG PO QHS for mood for 7 Days, #18 Trazodone HCl (Trazodone HCl) 100 Mg Tablet, 300 MG PO QHS for sleep for 7 Days, #21 Scheduled PRN Albuterol Sulfate (Ventolin Hfa) 18 Gm Hfa.aer.ad, 2 PUFF INH Q4H PRN for WHEEZING, (Reported) Allergies Coded Allergies: haloperidol (Verified Adverse Reaction, Unknown, unknown, 05/07/19) Per brother, there was a reaction in the past the senior care. He was unable to describe the reaction. COLT MAIER DO May 27, 2019 10:17
== END 2019-05-27 13:35 | disposition home or self-care (01) | DRG 750 ==
LOC: M ED 15:00 → M ED INP 05-05 10:28 → M PSY 05-05 11:10
PROVIDERS: ADMIT Psychiatry & Neurology Addiction Medicine; ATTEND Psychiatry & Neurology Addiction Medicine
DX: F20.9 Schizophrenia, unspecified (principal); I11.0 Hypertensive heart disease with heart failure; I50.32 Chronic diastolic (congestive) heart failure; E11.9 Type 2 diabetes mellitus without complications; F12.90 Cannabis use, unspecified, uncomplicated; F10.10 Alcohol abuse, uncomplicated; F16.10 Hallucinogen abuse, uncomplicated; Z79.899 Other long term (current) drug therapy; Z88.8 Allergy status to other drugs, medicaments and biological substances; J44.9 Chronic obstructive pulmonary disease, unspecified; E66.9 Obesity, unspecified; F17.200 Nicotine dependence, unspecified, uncomplicated

== ENCOUNTER 2019-07-11 21:55 | Emergency (ER) | payer MEDICAID, OTHER ==
[~2019-07-11] VITALS: Ht 188 cm; Wt 127.3 kg
[~2019-07-11 21:55] MED LIST changes: +FLUP5TA PO; +INVE1.75; +QUET1TAB10 PO; +QUET200T2 PO; +TRAZ1TAB12 PO
[2019-07-11 22:09] VITALS: BP 129/89
[2019-07-11] MEDS ORDERED: LIDOCAINE W/EPINEPHRINE 1% 20ML VIAL SC ONE (22:30)
[2019-07-11] MEDS ORDERED: KEFL500C17 PO (23:13)
[2019-07-11] MEDS ORDERED: CEPHALEXIN 500 MG CAP PO ONE (23:15)
== END 2019-07-11 23:30 | disposition home or self-care (01) ==
LOC: EDBD 21:55 → M ED 21:55
DX: S61.012A Laceration without foreign body of left thumb without damage to nail, initial encounter (principal); W26.0XXA Contact with knife, initial encounter; Y92.019 Unspecified place in single-family (private) house as the place of occurrence of the external cause; E11.9 Type 2 diabetes mellitus without complications; I10 Essential (primary) hypertension; K21.9 Gastro-esophageal reflux disease without esophagitis; J44.1 Chronic obstructive pulmonary disease with (acute) exacerbation; F20.9 Schizophrenia, unspecified; Z88.8 Allergy status to other drugs, medicaments and biological substances; Z79.51 Long term (current) use of inhaled steroids; Z79.899 Other long term (current) drug therapy

== ENCOUNTER 2020-07-09 08:30 | Emergency (ER) | payer OTHER ==
[~2020-07-09] VITALS: Ht 185.4 cm; Wt 141.4 kg
[~2020-07-09 08:30] MED LIST changes: -FLUP5TA PO; +FLUP5TAB13 PO; +KEFL500C17 PO; -LISI-538 PO; +LISI20TA33 PO; -MAPA325T2 PO; +MAPA325T8 PO; -QUET1TAB10 PO; +QUET300T2 PO; +RISP-10 PO; -RISP3TAB3 PO
--- OUTSIDE RECORDS SUMMARY | 2020-07-09 09:09 | CCD ---
Author Author Akbar Orozco Organization Unknown Address [address] [place] [address] Phone Care Team Providers Care Industrial X Ray Operator Name Role Phone Carlie Orozco PCP Chief Complaint and Reason for Visit Chief Complaint Allergies, Adverse Reactions, Alerts No Data in Section Problem List Concept Problem Description Status Start Date Created Date Resolv ed Date Snomed Code F29 Unspecified Schizophrenia Spectrum and Other Psychotic Disorder Active 05/10/2020 F10.20 Alcohol Use Disorder, Moderate Active 0 Z72.0 Tobacco Use Disorder, Mild Active 05/10/2020 F15.10 Stimulant Use Disorder, Mild: Other or unspecified sti mulant Active 05/10/2020 Medications Rx Norm Medication Route Route Concept Start Date Stop Date Dosage Nawaf quency Duration Formula Strength Dosage Form Dosage Form Code Dosage Description Medication Id Account Npid Author First Name Author Last Name Taxonomy Code Taxonomy Desc Phone Number [phone] Invega Trinza 05/14/2018 every three months 819 mg/2.625 mL syringe [phone] Melvin Daugherty [id number] Ps ychiatric/Mental Health [phone] Social History Social History Element Description Concept Effective Date Smoking Status Unknown if ever smoked [id number] Immunizations No Data in Section Vital Signs No Data in Section Procedures Date Concept Id Description Targeted Site Concept Targeted Site Concept Type 05/09/2020 81991 Brief Individual Psychotherapy - 30 min CPT Patient has no history of implantable de vices Encounters Encounter Start Date End Date Encounter Type Description Diagnosis Di agnosis Desc Location Author First Name Author Last Name Npid Taxonomy Cod e Taxonomy Desc Phone Number Location Addr1 Location Addr2 Location City Location [place] Location Zip [id number] 05/09/2020 05/09/2020 60730 Brief Individual Psychothera py - 30 min F29 Unspecified Schizophrenia Spectrum and Other Psychotic Disorder [facility] Ernesto Sexton [phone] [id number] Artificial Pearl Maker [phone] [address] [place] [place] [phone] Plan of Treatment No Data in Section Lab Results No Data in Section Instructions No Data in Section Insurance Providers Insurance Id Policy Effective Date Policy Thru Date Resale Therapy Constance trent [id number] 2017 [id number]
--- OUTSIDE RECORDS SUMMARY | 2020-07-09 09:09 | CCD ---
Author Author Akbar Gil Mamie Organization Unknown Address [address] [place] [address] Phone Care Team Providers Care Fire Safety Director Name Role Phone Mamie Gil PCP Allergies, Adverse Reactions, Alerts No Data in Section Problem List Concept Problem Description Status Start Date Created Date Resolv ed Date Snomed Code F29 Unspecified Schizophrenia Spectrum and Other Psychotic Disorder Active 06/05/2020 F10.20 Alcohol Use Disorder, Moderate Active Z72.0 Tobacco Use Disorder, Mild Active 06/05/2020 F15.10 Stimulant Use Disorder, Mild: Other or unspecified sti mulant Active 06/05/2020 Medications Rx Norm Medication Route Route Concept Start Date Stop Date Dosage Nawaf quency Duration Formula Strength Dosage Form Dosage Form Code Dosage Description Medication Id Account Npid Author First Name Author Last Name Taxonomy Code Taxonomy Desc Phone Number [phone] Wilfrido Nuñezza 05/14/2018 every three months 819 mg/2.625 mL syringe 24957 [phone] Melvin Daugherty [id number] Ps ychiatric/Mental Health [phone] Social History Social History Element Description Concept Effective Date Smoking Status Unknown if ever smoked [id number] Immunizations No Data in Section Vital Signs No Data in Section Procedures Date Concept Id Description Targeted Site Concept Targeted Site Concept Type 06/05/2020 95833 Psychiatric Diagnostic Evaluation (Non-Medical) CPT Patient has no history of implantable de vices Encounters Encounter Start Date End Date Encounter Type Description Diagnosis Di agnosis Desc Location Author First Name Author Last Name Npid Taxonomy Cod e Taxonomy Desc Phone Number Location Addr1 Location Addr2 Location [facility] Location [facility] Location Zip [id number] 06/05/2020 06/05/2020 20563 Psychiatric Gabriella gnostic Evaluation (Non-Medical) F29 Unspecified Schizophrenia Sp ectrum and Other Psychotic Disorder [facility] Louise Hatch [id number] Whipped Topping Supervisor [phone] [address] [address] Plan of Treatment No Data in Section Lab Results No Data in Section Instructions No Data in Section Insurance Providers Insurance Id Policy Effective Date Policy Thru Date Company N twan [id number] 2017 [id number]
--- OUTSIDE RECORDS SUMMARY | 2020-07-09 09:09 | CCD ---
Author Author Akbar Shankar Organization Unknown Address [address] [place] [address] Phone Care Team Providers Care Tailor Women'S Garment Alteration Name Role Phone Marissa Shankar PCP Allergies, Adverse Reactions, Alerts No Data in Section Problem List Concept Problem Description Status Start Date Created Date Resolv ed Date Snomed Code F29 Unspecified Schizophrenia Spectrum and Other Psychotic Disorder Active 06/25/2020 F10.20 Alcohol Use Disorder, Moderate Active Z72.0 Tobacco Use Disorder, Mild Active 06/25/2020 F15.10 Stimulant Use Disorder, Mild: Other or unspecified sti mulant Active 06/25/2020 Medications Rx Norm Medication Route Route Concept Start Date Stop Date Dosage Nawaf quency Duration Formula Strength Dosage Form Dosage Form Code Dosage Description Medication Id Account Npid Author First Name Author Last Name Taxonomy Code Taxonomy Desc Phone Number [phone] Wilfrido Thomas 05/14/2018 every three months 819 mg/2.625 mL syringe [phone] [phone] Melvin Daugherty [id number] Ps ychiatric/Mental Health [phone] Social History Social History Element Description Concept Effective Date Smoking Status Unknown if ever smoked [id number] Immunizations No Data in Section Vital Signs No Data in Section Procedures Date Concept Id Description Targeted Site Concept Targeted Site Concept Type 06/25/2020 21426 Psychiatric Diagnostic Evaluation with Medical Services CPT Patient has no history of implantable de vices Encounters Encounter Start Date End Date Encounter Type Description Diagnosis Di agnosis Desc Location Author First Name Author Last Name Npid Taxonomy Cod e Taxonomy Desc Phone Number Location Addr1 Location Addr2 Location City Location Sta Location Zip [id number] 06/25/2020 06/25/2020 77875 Psychiatric Gabriella gnostic Evaluation with Medical Services F29 Unspecified Schizophrenia Sp ectrum and Other Psychotic Disorder [facility] Raad Ann [id number] Nurse Practitioner [phone] [address] [address] Plan of Treatment No Data in Section Lab Results No Data in Section Instructions No Data in Section Insurance Providers Insurance Id Policy Effective Date Policy Thru Date Company N twan [id number] 2017 [id number]
--- OUTSIDE RECORDS SUMMARY | 2020-07-09 09:09 | CCD | Clinical Summary ---
Author Author Akbar Simms Organization Unknown Address Unknown Phone Unavailable Allergies, Adverse Reactions, Alerts No Known Allergies Vital Signs No vital signs data provided. Social History No smoking status data provided. Problems and Diagnosis No problems data provided. Assessment and Plan No assessment and plan information provided. Medications No medications data provided. IMMUNIZATIONS Results Date Description Value Details Procedures No procedures data provided. Functional Status No functional status provided. Reason for Referral Reason for Referral unknown ENCOUNTERS No Encountered diagnosis data provided
--- OUTSIDE RECORDS SUMMARY | 2020-07-09 09:09 | CCD ---
Author Organization Unknown Address [address] [place] [address] Phone [phone] Care Team Providers Care [employer] Advisor Name Role Phone Manju Karimi Unavailable Unavailable Allergies Code Code System Name Reaction Severity Status Onset NKDA Medications Name Status Start Date Stop Date clindamycin HCl 300 mg capsule TAKE 1 CAPSULE BY MOUTH 4 TIMES A DAY DIRECTED 8AM 1P.M 5PM 9PM FOR 7 DAYS Completed 06/22/2020 lisinopril 20 mg tablet Take 1 tablet every day by oral route as directed. Active Not available magnesium oxide 400 mg (241.3 mg magnesium) tablet Active Not available metformin 1,000 mg tablet TAKE ONE TABLET BY MOUTH TWICE A DAY WITH A MEAL Active Not available Narcan 4 mg/actuation nasal spray Active Not available nicotine (polacrilex) 2 mg gum Completed 0 06/22/2020 polyethylene glycol 3350 17 gram/dose oral powder Active Not available quetiapine 100 mg tablet Active Not talon ilable quetiapine 200 mg tablet TAKE 2 AND 1/2 TABLETS BY MOUTH AT BEDTIME FOR MOOD Completed 06/22/2020 quetiapine 300 mg tablet Active Not talon ilable Stool Softener-Laxative 8.6 mg-50 mg tablet Active Not available trazodone 150 mg tablet TAKE 2 TABLETS 300MG TOTAL BY MOUTH ONCE EVERY NIGHT Active Not available Problems Name Status Onset Date Source Schizophrenia Active 07/31/2015 History Mixed Bipolar Affective Disorder Active 07/31/2015 History Hypertensive Disorder Active 07/31/2015 History Tobacco Use and Exposure - Finding Active 07/31/2015 History Clinical Finding Active 07/31/2015 History Procedure by Method Active 07/31/[address] Concept Active 07/31/2015 History Hyperlipidemia Active 09/04/2015 History Cough Active 06/13/[address] Concept Active 06/13/2016 History Dental Caries on Smooth Surface Penetrating into Pulp Active 01/22/2017 History Obstructive Sleep Apnea Syndrome Active 06/11/2017 History Screening Procedure Active 06/11/2017 History Clinical Finding Active 03/24/2019 History Procedures Notes: Right middle finger Results Lab Results None recorded. Past Encounters 06/22/2020 Type II Diabetes Mellitus Uncontrolled; Hypertensive Disorder; Adult Health Examination; Substance Abuse Manju Karimi [facility]: [address] [place] [address], Ph. Social History Tobacco Smoking Status Former Smoker Vaccine List None recorded. Plan of Care Patient Instructions You have had your annual physical exam d one today. Please continue medications as prescribed. Please continue healthy diet and physical activities. Please try to limit sugars and carbohydrates in your diet. Please try to maintain adequate intake of water daily. Reminders Provider Appointments None recorded. Lab None recorded. Referral None recorded. Procedures None recorded. Surgeries None recorded. Imaging None recorded. Vitals 06/22/2020 10:40AM ANNUAL EXAM Height Weight BMI Blood Pressure 74 in 311 lbs 3.2 oz 40 kg/m2 136/92 mm[Hg ] 03/24/2019 Height Weight Blood Pressure 76 in 294 lbs 3.04 oz 130/88 mm[Hg] 08/27/2018 Height Weight Blood Pressure 76 in 295 lbs 2.08 oz 116/79 mm[Hg] 05/28/2018 Height Weight Blood Pressure 76 in 303 lbs 8 oz 114/78 mm[Hg]
--- OUTSIDE RECORDS SUMMARY | 2020-07-09 09:09 | CCD ---
Author Author Akbar Gil Mamie Organization Unknown Address [address] [place] [address] Phone Care Team Providers Care Police Service Technician Name Role Phone Mamie Gil PCP Allergies, Adverse Reactions, Alerts No Data in Section Problem List Concept Problem Description Status Start Date Created Date Resolv ed Date Snomed Code F29 Unspecified Schizophrenia Spectrum and Other Psychotic Disorder Active 06/19/2020 F10.20 Alcohol Use Disorder, Moderate Active Z72.0 Tobacco Use Disorder, Mild Active 06/19/2020 F15.10 Stimulant Use Disorder, Mild: Other or unspecified sti mulant Active 06/19/2020 Medications Rx Norm Medication Route Route Concept Start Date Stop Date Dosage Nawaf quency Duration Formula Strength Dosage Form Dosage Form Code Dosage Description Medication Id Account Npid Author First Name Author Last Name Taxonomy Code Taxonomy Desc Phone Number [phone] Wilfrido Thomas 05/14/2018 every three months 819 mg/2.625 mL syringe 34859 [phone] Melvin Daugherty [id number] Ps ychiatric/Mental Health [phone] Social History Social History Element Description Concept Effective Date Smoking Status Unknown if ever smoked [id number] Immunizations No Data in Section Vital Signs No Data in Section Procedures Date Concept Id Description Targeted Site Concept Targeted Site Concept Type 06/19/2020 81744 Psychiatric Diagnostic Evaluation (Non-Medical) CPT Patient has no history of implantable de vices Encounters Encounter Start Date End Date Encounter Type Description Diagnosis Di agnosis Desc Location Author First Name Author Last Name Npid Taxonomy Cod e Taxonomy Desc Phone Number Location Addr1 Location Addr2 Location [facility] Location [facility] Location Zip [id number] 06/19/2020 06/19/2020 63230 Psychiatric Gabriella gnostic Evaluation (Non-Medical) F29 Unspecified Schizophrenia Sp ectrum and Other Psychotic Disorder [facility] Louise Hatch [phone] [id number] Tanning Salon Attendant [phone] [address] [address] Plan of Treatment No Data in Section Lab Results No Data in Section Instructions No Data in Section Insurance Providers Insurance Id Policy Effective Date Policy Thru Date Company N twan [id number] 2017 [id number]
--- OUTSIDE RECORDS SUMMARY | 2020-07-09 09:11 | CCD ---
Author Author [facility] Organization [facility] Address Unknown Phone Unavailable Care Team Providers Care Order Worker Name Role Phone Paris Yang MD Unavailable Unavailable Paris Yang MD Unavailable Unavailable Paris Yang MD Unavailable Unavailable Paris Yang MD Unavailable Unavailable Paris Yang MD Unavailable Unavailable EMMA [place] Unavailable Unavailable Bee ALEX MD Unavailable Unavailable Bee ALEX MD Unavailable Unavailable Bee ALEX MD Unavailable Unavailable Bee ALEX MD Unavailable Unavailable Bee ALEX MD Unavailable Unavailable Bee ALEX MD Unavailable Unavailable Bee ALEX MD Unavailable Unavailable Bee ALEX MD Unavailable Unavailable MICHAEL HARVEY MD Unavailable Unavailable MICHAEL HARVEY MD Unavailable Unavailable MICHAEL HARVEY MD Unavailable Unavailable MICHAEL HARVEY MD Unavailable Unavailable MICHAEL HARVEY MD Unavailable Unavailable MICHAEL HARVEY MD Unavailable Unavailable Marvin Rosario MD Unavailable Unavailable Penny, Enoc Monalisa PA PA Unavailable [phone] Penny, E Monalisa PA PA Unavailable [phone] Penny E Monalisa PA PA Unavailable [phone] Penny, E Monalisa PA PA Unavailable [phone] Mamie Gil Unavailable Mary MANNING . Unavailable Unavailable KATEY OSWALD MD Unavailable Unavailable KATEY OSWALD MD Unavailable Unavailable KATEY OSWALD MD Unavailable Unavailable KATEY OSWALD MD Unavailable Unavailable Penny, Enoc Monalisa PA Unavailable Unavailable SALMA [id number], E NAMAN [id number] Unavailable Unavailab le SALMA [id number], E NAMAN [id number] Unavailable Unavailab le SALMA [id number], E NAMAN [id number] Unavailable Unavailab henry Ricardo, [facility] Unavailable Unavailab le GRUDOWSKI, P CHRISTOPHER DATABASES 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 Unavailable GRUDOWSKI, P CHRISTOPHER DATABASES 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 Unavailable GRUDOWSKI, P CHRISTOPHER DATABASES 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 Unavailable GRUDOWSKI, P CHRISTOPHER DATABASES 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 Unavailable GRUDOWSKI, P CHRISTOPHER DATABASES 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 Unavailable GRUDOWSKI, P CHRISTOPHER DATABASES 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 Unavailable GRUDOWSKI, P CHRISTOPHER DATABASES 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 Unavailable GRUDOWSKI, P CHRISTOPHER DATABASES 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 Unavailable GRUDOWSKI, P CHRISTOPHER DATABASES 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 Unavailable GRUDOWSKI, P CHRISTOPHER DATABASES 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 Unavailable GRUDOWSKI, P CHRISTOPHER DATABASES 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 Unavailable GRUDOWSKI, P CHRISTOPHER DATABASES 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 Unavailable GRUDOWSKI, P CHRISTOPHER DATABASES 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 Unavailable GRUDOWSKI, P CHRISTOPHER DATABASES 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 Unavailable GRUDOWSKI, P CHRISTOPHER DATABASES 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 Unavailable GRUDOWSKI, P CHRISTOPHER DATABASES 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 Unavailable GRUDOWSKI, P CHRISTOPHER DATABASES 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 Unavailable GRUDOWSKI, P CHRISTOPHER DATABASES 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 Unavailable GRUDOWSKI, P CHRISTOPHER DATABASES 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 Unavailable GRUDOWSKI, P CHRISTOPHER DATABASES 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 Unavailable GRUDOWSKI, P CHRISTOPHER DATABASES 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 Unavailable GRUDOWSKI, P CHRISTOPHER DATABASES 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 Unavailable [place], C Melvin Unavailable Unavailable [place], C Melvin Unavailable Unavailable [place], C Melvin Unavailable Unavailable Dat, C Melvin Unavailable Unavailable [place], C Melvin Unavailable Unavailable Dat, C Melvin Unavailable Unavailable Dat, C Melvin Unavailable Unavailable CREAMER, Latricia MILLER MD Unavailable Unavailable CREAMER, Latricia MILLER MD Unavailable Unavailable CREAMER, Latricia MILLER MD Unavailable Unavailable CREAMER, Latricia MILLER MD Unavailable Unavailable CREAMER, Latricia MILLER MD Unavailable Unavailable CREAMER, Latricia MILLER MD Unavailable Unavailable CREAMER, Latricia MILLER MD Unavailable Unavailable CREAMER, Latricia MILLER MD Unavailable Unavailable CREAMER, Latricia MILLER MD Unavailable Unavailable CREAMER, Latricia MILLER MD Unavailable Unavailable CREAMER, Latricia MILLER MD Unavailable Unavailable CREAMER, Latricia MILLER MD Unavailable Unavailable CREAMER, Latricia MILLER MD Unavailable Unavailable CREAMER, Latricia MILLER MD Unavailable Unavailable CREAMER, Latricia MILLER MD Unavailable Unavailable CREAMER, Latricia MILLER MD Unavailable Unavailable CREAMER, Latricia MILLER MD Unavailable Unavailable CREAMER, Latricia MILLER MD Unavailable Unavailable CREAMER, Latricia MILLER MD Unavailable Unavailable CREAMER, Latricia MILLER MD Unavailable Unavailable CREAMER, Latricia MILLER MD Unavailable Unavailable CREAMER, Latricia MILLER MD Unavailable Unavailable CREAMER, Latricia MILLER MD Unavailable Unavailable CREAMER, Latricia MILLER MD Unavailable Unavailable CREAMER, Latricia MILLER MD Unavailable Unavailable CREAMER, M PAUL MD Unavailable Unavailable CREAMLatricia FERRELL MD Unavailable Unavailable CREAMLatricia FERRELL MD Unavailable Unavailable CREAMLatricia FERRELL MD Unavailable Unavailable Trev, A Manju ELECTRONIC INTELLIGENCE OFFICER Unavailable Unavailable Trev, A Manju ELECTRONIC INTELLIGENCE OFFICER Unavailable Unavailable Trev, A Manju ELECTRONIC INTELLIGENCE OFFICER Unavailable Unavailable Trev, A Manju ELECTRONIC INTELLIGENCE OFFICER Unavailable Unavailable Trev, A Manju ELECTRONIC INTELLIGENCE OFFICER Unavailable Unavailable Trev, A Manju ELECTRONIC INTELLIGENCE OFFICER Unavailable Unavailable Trev, A Manju ELECTRONIC INTELLIGENCE OFFICER Unavailable Unavailable Trev, A Manju ELECTRONIC INTELLIGENCE OFFICER Unavailable Unavailable Trev, A Manju ELECTRONIC INTELLIGENCE OFFICER Unavailable Unavailable Trev, A Manju ELECTRONIC INTELLIGENCE OFFICER Unavailable Unavailable [place], A Manju ELECTRONIC INTELLIGENCE OFFICER Unavailable Unavailable [place], A Manju ELECTRONIC INTELLIGENCE OFFICER Unavailable Unavailable [place], A Manju ELECTRONIC INTELLIGENCE OFFICER Unavailable Unavailable [place], A Manju ELECTRONIC INTELLIGENCE OFFICER Unavailable Unavailable [place], A Manju ELECTRONIC INTELLIGENCE OFFICER Unavailable Unavailable [place], A Manju ELECTRONIC INTELLIGENCE OFFICER Unavailable Unavailable [place], A Manju ELECTRONIC INTELLIGENCE OFFICER Unavailable Unavailable [place], A Manju ELECTRONIC INTELLIGENCE OFFICER Unavailable Unavailable [place], A Manju ELECTRONIC INTELLIGENCE OFFICER Unavailable Unavailable [place], A Manju ELECTRONIC INTELLIGENCE OFFICER Unavailable Unavailable [place], A Manju ELECTRONIC INTELLIGENCE OFFICER Unavailable Unavailable [place], A Manju ELECTRONIC INTELLIGENCE OFFICER Unavailable Unavailable [place], A Manju ELECTRONIC INTELLIGENCE OFFICER Unavailable Unavailable [place], A Manju ELECTRONIC INTELLIGENCE OFFICER Unavailable Unavailable [place], A Manju ELECTRONIC INTELLIGENCE OFFICER Unavailable Unavailable [place], A Manju ELECTRONIC INTELLIGENCE OFFICER Unavailable Unavailable [place], A Manju ELECTRONIC INTELLIGENCE OFFICER Unavailable Unavailable Trev, A Manju ELECTRONIC INTELLIGENCE OFFICER Unavailable Unavailable ASADENEEN Holliday MD Unavailable Unavailable ASADENEEN Holliday MD Unavailable Unavailable ASADENEEN Holliday MD Unavailable Unavailable ASADENEEN Holliday MD Unavailable Unavailable ASADENEEN Holliday MD Unavailable Unavailable ASADENEEN Holliday MD Unavailable Unavailable ASADENEEN Holliday MD Unavailable Unavailable Megna, L Nahid PA-C Unavailable Unavailable Megna, L Nahid PA-C Unavailable Unavailable Megna, L Nahid PA-C Unavailable Unavailable Megna, L Nahid PA-C Unavailable Unavailable Megna, L Nahid PA-C Unavailable Unavailable Megna, L Nahid PA-C Unavailable Unavailable Megna, L Nahid PA-C Unavailable Unavailable Megna, L Nahid PA-C Unavailable Unavailable Megna, L Nahid PA-C Unavailable Unavailable Megna, L Nahid PA-C Unavailable Unavailable Megna, L Nahid PA-C Unavailable Unavailable Mikayla Taveras Unavailable Unavailable [place], Y Nahid Unavailable Unavailable [place], Y Nahid Unavailable Unavailable [place], Y Nahid Unavailable Unavailable [place], Y Nahid Unavailable Unavailable PCARE_295, 0 Unavailable Diane Barry MD Unavailable Unavailable Diane Barry MD Unavailable Unavailable Rosemary Pruitt Unavailable ErnestoCarlie Unavailable Trev, A Manju ELECTRONIC INTELLIGENCE OFFICER Unavailable Unavailable Trev, A Manju ELECTRONIC INTELLIGENCE OFFICER Unavailable Unavailable Trev, A Manju ELECTRONIC INTELLIGENCE OFFICER Unavailable Unavailable Trev, A Manju ELECTRONIC INTELLIGENCE OFFICER Unavailable Unavailable Trev, A Manju ELECTRONIC INTELLIGENCE OFFICER Unavailable Unavailable Trev, A Manju ELECTRONIC INTELLIGENCE OFFICER Unavailable Unavailable Trev, A Manju ELECTRONIC INTELLIGENCE OFFICER Unavailable Unavailable Trev, A Manju ELECTRONIC INTELLIGENCE OFFICER Unavailable Unavailable Trev, A Manju ELECTRONIC INTELLIGENCE OFFICER Unavailable Unavailable Trev, A Manju ELECTRONIC INTELLIGENCE OFFICER Unavailable Unavailable Trev, A Manju ELECTRONIC INTELLIGENCE OFFICER Unavailable Unavailable [place], A Manju ELECTRONIC INTELLIGENCE OFFICER Unavailable Unavailable [place], A Manju ELECTRONIC INTELLIGENCE OFFICER Unavailable Unavailable [place], A Manju ELECTRONIC INTELLIGENCE OFFICER Unavailable Unavailable Trev, A Manju ELECTRONIC INTELLIGENCE OFFICER Unavailable Unavailable Trev, A Manju ELECTRONIC INTELLIGENCE OFFICER Unavailable Unavailable [place], A Manju ELECTRONIC INTELLIGENCE OFFICER Unavailable Unavailable [place], A Manju ELECTRONIC INTELLIGENCE OFFICER Unavailable Unavailable [place], A Manju ELECTRONIC INTELLIGENCE OFFICER Unavailable Unavailable [place], A Manju ELECTRONIC INTELLIGENCE OFFICER Unavailable Unavailable Trev, A Manju ELECTRONIC INTELLIGENCE OFFICER Unavailable Unavailable [place], A Manju ELECTRONIC INTELLIGENCE OFFICER Unavailable Unavailable [place], A Manju ELECTRONIC INTELLIGENCE OFFICER Unavailable Unavailable [place], A Manju ELECTRONIC INTELLIGENCE OFFICER Unavailable Unavailable [place], A Manju ELECTRONIC INTELLIGENCE OFFICER Unavailable Unavailable [place], A Manju ELECTRONIC INTELLIGENCE OFFICER Unavailable Unavailable Trev, A Manju ELECTRONIC INTELLIGENCE OFFICER Unavailable Unavailable Trev, A Manju ELECTRONIC INTELLIGENCE OFFICER Unavailable Unavailable Tamara Huizar HIDE DROPPER Unavailable Unavailable DELIA, H KJ DATABASES 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 Unavailable Unavailable DELIA, H KJ DATABASES 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 Unavailable Unavailable DELIA, H KJ DATABASES 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 Unavailable Unavailable DELIA, H KJ DATABASES 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 Unavailable Unavailable DELIA, H KJ DATABASES 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 Unavailable Unavailable DELIA, H KJ DATABASES 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 Unavailable Unavailable DELIA, H KJ DATABASES 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 Unavailable Unavailable YOUNG, A DAQUAN ELECTRONIC INTELLIGENCE OFFICER Unavailable Unavailable YOUNG, A DAQUAN ELECTRONIC INTELLIGENCE OFFICER Unavailable Unavailable YOUNG, A DAQUAN ELECTRONIC INTELLIGENCE OFFICER Unavailable Unavailable YOUNG, A DAQUAN ELECTRONIC INTELLIGENCE OFFICER Unavailable Unavailable YOUNG, A DAQUAN ELECTRONIC INTELLIGENCE OFFICER Unavailable Unavailable Manju Karimi ELECTRONIC INTELLIGENCE OFFICER ELECTRONIC INTELLIGENCE OFFICER Unavailable Unavailable Re-disclosure Warning The records that you are about to access may contain information from federally-assisted alcohol or drug abuse programs. If such information is present, then the following federally mandated warning applies: This information has been disclosed to you from records protected by federal confidentiality rules (42 CFR part 2). The federal rules prohibit you from making any further disclosure of this information unless further disclosure is expressly permitted by the written consent of the person to whom it pertains or as otherwise permitted by 42 CFR part 2. A general authorization for the release of medical or other information is NOT sufficient for this purpose. The Federal rules restrict any use of the information to criminally investigate or prosecute any alcohol or drug abuse patient.The records that you are about to access may contain highly sensitive health information, the redisclosure of which is protected by Article 27-F of the [facility] Public Health law. If you continue you may have access to information: Regarding HIV / AIDS; Provided by facilities licensed or operated by the [facility] Office of Mental Health; or Provided by the [facility] Office for People With Developmental Disabilities. If such information is present, then the following [facility] mandated warning applies: This information has been disclosed to you from confidential records which are protected by state law. State law prohibits you from making any further disclosure of this information without the specific written consent of the person to whom it pertains, or as otherwise permitted by law. Any unauthorized further disclosure in violation of state law may result in a fine or snf sentence or both. A general authorization for the release of medical or other information is NOT sufficient authorization for further disc losure. Allergies and Adverse Reactions Type Description Substance Reaction Status Data Source(s ) Drug allergy Drug allergy egg Vomiting [facility] Drug allergy Drug allergy haloperidol (From Haldol) Unknown Reaction [facility] Family History Family Member Name Family Member Gender Family Member Status Date o f Status Description Data Source(s) Unknown Male Problem MEDENT ([facility]) () Unknown Male Problem MEDENT ([facility]) cornelius--- Encounters Encounter Providers Location Date Indications Data Source(s ) Psychiatric Diagnostic Evaluation with Medical Service s Attender: KJ LIN NP [facility] 06/25/2020 02:00:00 AM EST - 06/25/2020 02:00:00 AM EST [facility] ([facility]) Attender: KJ LIN NP 06/25/2020 12:00:00 AM EST [facility] ([facility]) NICO Black-BC: [address] [facility] [address], [place] [address], Ph. Attender: Manju WALSH [place] [facility] Medical 06/22/2020 12:00:00 AM EST [facility] ([facility]) Psychiatric Diagnostic Evaluation (Non-Medical) Attender: Kobi Gil [facility] 06/19/2020 12:30:00 PM EST - 06/19/2020 12:30:00 PM EST [facility] ([facility]) Attender: Mamie Gil 06/19/2020 12:00:0 0 AM EST [facility] ([facility]) Psychiatric Diagnostic Evaluation (Non-Medical) [facility] 06/05/2020 11:45:00 AM EST - 06/05/2020 11:45:00 AM EST [facility] ([facility]) Attender: 0 [id number] 06/05/2020 09:22:00 AM ES T [facility] ([facility]) Attender: Mamie Gil 06/05/2020 12:00:0 0 AM EST [facility] ([facility]) Preadmit Attender: [facility] Laura Ricardo [facility] 05/10/2020 04:00:00 PM EST [facility] PSD Brief Individual Psychotherapy - 30 min Attender: Carlie patel [facility] 05/09/2020 09:00:00 AM EST - 05/09/2020 09:00:00 AM EST [facility] ([facility]) Attender: Carlie Orozco 05/09/2020 12:00:00 AM EST [facility] ([facility]) Preadmit Attender: EMMA Ricardo [facility] 05/03/2020 11:00:00 AM EST MAR [facility] MAR Outpatient Attender: [facility] Larua Ricardo [facility] 04/30/2020 02:00:00 PM EST - 04/30/2020 02:01:00 PM EST PSD [facility] PSD Patient discharged. Emergency Attender: SAM WYNN NPAttend er: Sailaja Barry MD [facility]ED 04/25/2020 12:12:00 PM EST - 04/25/2020 02:18:00 PM EST BACK PAIN [facility] BACK PAIN Patient discharged. Outpatient Attender: [facility] Laura Ricardo [facility] 04/23/2020 02:00:00 PM EST - 04/23/2020 02:01:00 PM EST PSD [facility] PSD Patient discharged. Outpatient Attender: [facility] Laura Ricardo [facility] 04/02/2020 02:00:00 PM EST - 04/02/2020 02:01:00 PM EST PSD [facility] PSD Patient discharged. Outpatient Attender: EMMA Ricardo [facility] 03/20/2020 03:00:00 PM EDT [facility] PSD Outpatient [facility] 03/13/2020 03: 00:00 PM EDT - 03/13/2020 03:01:00 PM EDT [facility] PSD Patient discharged. Outpatient Attender: ANY Ricardo [facility] 03/12/2020 02:00:00 PM EDT - 03/12/2020 02:01:00 PM EDT PSD [facility] PSD Patient discharged. Outpatient Attender: [facility] Laura DENNISCAORT- CHEPDREH 03/06/2020 11:00:00 AM EDT - 03/06/2020 11:01:00 AM EDT [facility] PSD Patient discharged. Outpatient [facility] 02/28/2020 03: 00:00 PM EDT - 02/28/2020 03:01:00 PM EDT PSD [facility] PSD Patient discharged. Outpatient Attender: EMMA Ricardo [facility] 02/27/2020 02:00:00 PM EDT - 02/27/2020 02:01:00 PM EDT PSD [facility] PSD Patient discharged. Outpatient Attender: ANY Ricardo [facility] 02/21/2020 10:00:00 AM EDT - 02/21/2020 10:01:00 AM EDT PSD [facility] PSD Patient discharged. Outpatient Attender: ANY Ricardo [facility] 01/23/2020 02:00:00 PM EDT - 01/23/2020 02:01:00 PM EDT PSD [facility] PSD Patient discharged. Outpatient Attender: Tamara Huizar LCSW [facility] 03:00:00 PM EDT - 01/09/2020 03:01:00 PM [facility] Outpatient Attender: ANY Ricardo [facility]- [facility] 12/27/2019 03:00:00 PM EDT - 12/27/2019 03:01:00 PM EDT PSD [facility] PSD Patient discharged. Outpatient Attender: ANY Ricardo [facility]- [facility] 12/22/2019 03:00:00 PM EDT - 12/22/2019 03:01:00 PM EDT PSD [facility] PSD Patient discharged. Outpatient Attender: EMMA Ricardo [facility] 12/16/2019 01:00:00 PM EDT - 12/16/2019 01:01:00 PM EDT PSD [facility] PSD Patient discharged. Outpatient Attender: EMMA Ricardo [facility] 12/07/2019 02:00:00 PM EDT - 12/07/2019 02:01:00 PM EDT [facility] PSD Patient discharged. Outpatient Attender: [facility] Laura Ricardo CPSCAORT- CHEPDREH 12/06/2019 02:00:00 PM EDT - 12/06/2019 02:01:00 PM EDT PSD [facility] PSD Patient discharged. Outpatient Attender: DAQUAN WALSH [facility]PS[facility]LABPNP 01/2020 08:36:00 PM EDT - 12/01/2019 08:37:00 PM EDT Z13.220,E11.9 [facility] Z13.220,E11.9 Patient discharged. Outpatient Attender: Tamara Huizar LCSW [facility] 02:00:00 PM EDT - 11/28/2019 02:01:00 PM EDT PSD [facility] PSD Patient discharged. Outpatient Attender: [facility] Laura Ricardo [facility]PS[facility]ORT- [facility]REH 11/22/2019 02:00:00 PM EDT - 11/22/2019 02:01:00 PM EDT PSD [facility] PSD Patient discharged. Outpatient Attender: Manju WALSH 11/07/2019 08:3 0:06 AM EDT [facility] Outpatient Attender: Monalisa Mccabeender: Erin LAMB CPSCAORT-LABPNP 11/03/2019 10:31:00 PM EDT - 11/03/2019 10:32:00 PM EDT SCRE ENING [facility] SCREENING Patient discharged. Outpatient Attender: [facility] Laura Ricardo CPSCAORT- [facility]PDREH 11/03/2019 01:00:00 PM EDT - 11/03/2019 01:01:00 PM EDT PSD [facility] PSD Patient discharged. Outpatient Attender: Tamara Huizar LCSW [facility] 02:00:00 PM EDT - 10/31/2019 02:01:00 PM EDT PSD [facility] PSD Patient discharged. Outpatient Attender: [facility] Chika Salazar CPS[facility]ORT-CHEPDREH 09/2019 11:00:00 AM EDT - 10/28/2019 11:01:00 AM EDT PSD [facility] PSD Patient discharged. Outpatient Attender: [facility] Laura Ricardo CPSCAORT- CHEPDREH 10/26/2019 09:30:00 AM EDT - 10/26/2019 09:31:00 AM EDT PSD [facility] PSD Patient discharged. Inpatient Attender: Deneen Xiao nder: DENEEN ROSARIO MDAdmitter: DENEEN ROSARIO MD [facility] 07/25/2019 12:31:00 PM EST - 10/20/2019 09:00:00 AM EDT PSYCHOACTIVE SUBSTANCE DEPENDENCE [facility] PSYCHOACTIVE SUBSTANCE DEPENDENCE Patient discharged. Outpatient Attender: NICO ORLANDO 07/21/2019 09:01:04 P M EST [facility] Outpatient Attender: Melvin Daugherty [facility] 0 07/20/2019 10:30:00 AM EST - 07/20/2019 10:30:00 AM EST [facility]) Attender: Melvin Daugherty 07/20/2019 12:00:00 AM EST [facility]) Inpatient Attender: Nahid Cardoso PA-scale reclamation tender: Paris Yang MDAdmitter: KATEY OSWALD MDReferrer: Paris Yang MDConsultant: GUSTAVO HARVEY MD [id number] 07/15/2019 12:00:00 AM EST - 07/25/2019 10:54:00 AM ES T suicidal ideation [facility] suicidal ideation Patient discharged. Outpatient Attender: PAUL OCHOA MD Attender: GREGORIO MORALES .Attender: NEIL ALEX MDAdmitter: PAUL OCHOA MDReferrer: Nahid QuispeyConsultant: NAMAN MARSH [id number] 07/14/2019 05:18:53 PM EST - 07/15/2019 05:11:00 PM EST Altered mental status, unspecified [facility] Altered mental status, unspecified Patient discharged. Emergency Attender: NEIL ALEX MDReferrer: NEIL Jacob MD 07/14/2019 05:16:36 PM [facility] Outpatient Attender: Manju MUÑOZP FP 07/13/2019 10:2 1:59 AM [facility] Outpatient Attender: NICO MUÑOZP FP 07/05/2019 09:37:00 A M [facility] Brief Individual Psychotherapy - 30 min Attender: Rosemary Bradley josef [facility] 07/01/2019 11:30:00 AM EST - 07/01/2019 11:30:00 AM EST [facility] ([facility]) Attender: Rosemary Pruitt 07/01/2019 12:00:00 AM EST [facility] ([facility]) Outpatient Attender: Manju MUÑOZP FP 06/30/2019 10:1 4:40 AM [facility]/30/[facility] 10:14:07 A M [facility] Outpatient Attender: NICO MUÑOZP FP 06/20/2019 04:37:00 P M [facility] Outpatient Attender: Melvin Daugherty [facility] 0 06/10/2019 11:00:00 AM EST - 06/10/2019 11:00:00 AM EST [facility] Attender: Melvin Daugherty 06/10/2019 12:00:00 AM EST [facility] Attender: NICO Karimi [facility] FP 06/07/2019 04:05:00 P M [facility] Outpatient 06/06/2019 08:45:00 PM EST [facility] Inpatient Attender: Deneen Xiao nder: DENEEN ROSARIO MDAdmitter: DENEEN ROSARIO MD [facility] 05/31/2019 09:46:00 AM EST - 06/28/2019 08:00:00 AM EST PSYCHOACTIVE SUBSTANCE DEPENDENCE [facility] PSYCHOACTIVE SUBSTANCE DEPENDENCE Patient discharged. Extended Individual Psychotherapy - 45 min Attender: Dorene Pruitt [facility] 05/31/2019 01:30:00 AM EST - 05/31/2019 01:30:00 AM EST [facility] ([facility]) Attender: Rosemary Pruitt 05/31/2019 12:00:00 AM EST [facility] Outpatient Attender: NICO WALSH FP 05/27/2019 10:55:00 A M EST [facility] Outpatient 05/11/2019 09:59:00 PM EST [facility] Inpatient Attender: DENEEN ROSARIO MDAdmitter: DENEEN ROSARIO MD [facility] 03/17/2016 11:23:00 AM EDT - 04/14/2016 10:30:00 AM EST PSYCHOACTIVE SUBSTANCE DEPENDENCE [facility] PSYCHOACTIVE SUBSTANCE DEPENDENCE Medications Medication Brand Name Start Date Product Form Dose Route Admi nistrative Instructions Pharmacy Instructions Status Indications Reaction Description Data Source(s) Metformin hydrochloride 1000 MG Oral Tablet 1,000 mg METFORM IN HCL 01/31/2020 12:00:00 AM EDT tablet 60 TAKE ONE TABLET BY MOUTH TWICE A DAY WITH A MEAL TAKE ONE TABLET BY MOUTH TWICE A DAY WITH A MEAL SOLD: 02/02/2020 [facility] 20 mg 01/31/2020 12:00:00 AM EDT tablet 30 TAKE ONE TABLET BY MOUTH EVERY DAY TAKE ONE TABLET BY MOUTH EVERY DAY SOLD: 02/02/2020 [facility] 20 mg 01/30/2020 12:00:00 AM EDT tablet 2 TAKE ONE TABLET BY MOUTH EVERY MORNING TAKE ONE TABLET BY MOUTH EVERY MORNING SOLD: 01/31/2020 [facility] Metformin hydrochloride 1000 MG Oral Tablet 1,000 mg METFORM IN HCL 01/30/2020 12:00:00 AM EDT tablet 4 TAKE ONE TABLET BY MOUTH TWICE A DAY TAKE ONE TABLET BY MOUTH TWICE A DAY SOLD: 01/31/2020 [facility] Acetaminophen 325 MG Oral Tablet acetaminophen (TYLENO L) tablet 650 mg acetaminophen (TYLENOL) tablet 650 mg 07/24/2019 05:24:32 PM EST 65 0 mg Oral active 650 mg, Oral, E very 6 hours PRN, Mild Pain (Pain Scale Score 1- 3), Headaches, Fever, Starting 07/24/19 at 1724, For 7 days
Maximum daily dose of acetaminophen is 3,000 mg from all sources in 24 hours.
[facility] Medication administered onsite Acetaminophen 325 MG Oral Tablet acetaminophen (TYLENO L) tablet 650 mg acetaminophen (TYLENOL) tablet 650 mg 07/17/2019 07:09:14 AM EST 65 0 mg Oral completed 650 mg, Oral, E very 6 hours PRN, Mild Pain (Pain Scale Score 1-3), Headaches, Fever, Starting 07/17/19 at 0709, For 7 days
Maximum daily dose of acetaminophen is 3,000 mg from all sources in 24 hours.
[facility] Medication administered onsite Metformin hydrochloride 500 MG Oral Tabl et metFORMIN (GLUCOPHAGE) tablet 1,000 mg metFORMIN (GLUCOPHAGE) tablet 1,000 mg 07/16/2019 08:00:00 AM EST 1000 mg Oral active Type 2 Diabetes Mellitus 1,000 mg, Oral, 2 Times Daily With Meals, Indications: Type 2 Diabetes Mellitus, First dose on Thu07/16/19 at 0800, For 30 days [facility] Type 2 Diabetes Mellitus Medication administered onsite Trazodone Hydrochloride 100 MG Oral Tablet trazodone ( DESYREL) tablet 300 mg trazodone (DESYREL) tablet 300 mg 07/15/2019 10:00:00 PM EST 300 mg Oral active 300 mg, Oral, Nightl y, First dose on Thu07/15/19 at 2200, For 30 days [facility] Medication administered onsite QUEtiapine (SEROquel) tablet 300 mg 07/15/2019 10:00:[address] 300 mg Oral active 300 mg, Oral, N ightly, First dose on Thu07/15/19 at 2200, For 30 days [facility] Medication administered onsite QUEtiapine (SEROquel) tablet 300 mg 07/15/2019 10:00:[address] 300 mg Oral aborted 300 mg, Oral, N ightly, First dose (after last modification) on Thu07/15/19 at 2200, For 30 days [facility] Medication administered onsite Trazodone Hydrochloride 100 MG Oral Tablet trazodone ( DESYREL) tablet 300 mg trazodone (DESYREL) tablet 300 mg 07/15/2019 10:00:00 PM EST 300 mg Oral aborted 300 mg, Oral, Nightl y, First dose on Thu07/15/19 at 2200, For 30 days [facility] Medication administered onsite 0.4 ML Enoxaparin sodium 100 MG/ML Prefi lled Syringe enoxaparin sodium (LOVENOX) injection 40 mg enoxaparin sodium (LOVENOX) injection 40 mg 07/15/2019 09:00:00 AM EST 40 mg Subcutaneous aborted 40 mg, Subcutaneous, Daily Standard, First dose on Thu07/15/19 at 0900, For 30 days [facility] Medication administered onsite Insulin Lispro 100 UNT/ML Injectable Vickie ution [Humalog] insulin lispro (HumaLOG) injection LOW DOSE EATING INSULIN patients 1-8 Units insulin lispro (HumaLOG) injection LOW DOSE EATING INSULIN patients 1-8 Units 07/15/2019 08:00:00 AM EST Subcutaneous aborted 1-8 Units, Subcutaneous, Three Times Daily-With Meals, First dose on Thu07/15/19 at 0800, For 30 days
Nursing MUST open the 'SQ Insulin Dosing Charts' Sidebar Report, or, the Patient Summary or Summary Report within the ED.
[facility] Medication administered onsite dexamethasone (DECADRON) injection 4 mg [id number] 07/15/19 07:00:00 AM EST 4 mg Intravenous aborted 4 mg, Intrav enous, Every 6 hours, First dose on Thu07/15/19 at 0700, For 30 days [facility] Medication administered onsite dextrose 50 % IV solution 25 mL [id number] 07/15/2019 01:00:[address] 25 mL Intravenous aborted 25 mL, Intrav enous, PRN, Other, blood glucose <55, Starting Thu07/15/19 at 0100, For 30 days
Not for midline administration.
[facility] Medication administered onsite Glucose 0.4 MG/MG Oral Gel glucose (GLUTOSE) 40 % oral gel 15 g glucose (GLUTOSE) 40 % oral gel 15 g 07/15/2019 01:00:26 AM EST 15 g Oral aborted 15 g, Oral, PRN, Low blood s ugar, for gluose 55-69 mg/dl and able to take PO, Starting Thu07/15/19 at 0100, For 30 days [facility] Medication administered onsite Glucagon 1 MG Injection glucagon (human recombinant) ( GLUCAGEN) injection 1 mg glucagon (human recombinant) (GLUCAGEN) injection 1 mg 07/15/2019 01:00:26 AM EST 1 mg Intramuscular aborted 1 mg, Intramuscular, PRN, for glucose <55 without IV access, Starting Thu07/15/19 at 0100, For 30 days [facility] Medication administered onsite Famotidine 0.4 MG/ML Injectable Solution famotidine (PEPCID) in sodium chloride 0.9 % IVPB 20 mg (premix) famotidine (PEPCID) in sodium chloride 0 .9 % IVPB 20 mg (premix) 07/15/2019 01:00:00 AM EST 20 mg Intravenous a borted 20 mg, Intravenous, Administer over 15 Minutes, Every 12 hours, First dose (after last modification) on Thu07/15/19 at 0100, For 1 day [facility] Medication administered onsite dexamethasone (DECADRON) injection 8 mg [id number] 07/15/19 01:00:00 AM EST 8 mg Intravenous completed 8 mg, Intr avenous, Once, Thu07/15/19 at 0100, For 1 dose [facility] Medication administered onsite diphenhydrAMINE (BENADRYL) injection 25 mg [id number] 07/15/2019 12:00:00 AM EST 25 mg Intravenous completed 25 mg, Intravenous, Once, Thu07/15/19 at 0000, For 1 dose [facility] Medication administered onsite sodium chloride 0.9 % bolus 1,000 mL [id number] 07/14/2019 07:30: 00 PM EST 1000 mL Intravenous completed 1,000 mL , Intravenous, Once, [facility] 07/14/19 at 1930, For 1 dose [facility] Medication administered onsite iohexol (OMNIPAQUE) 350 MG/ML contrast injection 100 mL [id number] 8 07/14/2019 05:30:00 PM EST 100 mL Given by IV completed 100 mL, Given by IV, 1 TIME IMAGING, [facility] 07/14/19 at 1730, For 1 dose [facility] Medication administered onsite 200 mg 05/26/2019 12:00:00 AM EST tablet 18 TAKE 2 AND 1/2 TABLETS BY MOUTH AT BEDTIME FOR MOOD TAKE 2 AND 1/2 TABLETS BY MOUTH AT BEDTIME FOR MOOD SO LD: 05/27/2019 [facility] 5 mg 05/26/2019 12:00:00 AM EST tablet 14 TAKE TWO TABLETS BY MOUTH AT BEDTIME FOR THOUGHTS TAKE TWO TABLETS BY MOUTH AT BEDTIME FOR THOUGHTS SOLD : 05/27/2019 [facility] Trazodone Hydrochloride 100 MG Oral Tablet TRAZODONE HCL 05/26/2019 12:00:00 AM EST tablet 21 TAKE THREE TABLETS BY MOUTH AT BEDTIME FOR SLEEP TAKE THREE TABLETS BY MOUTH AT BEDTIME FOR SLEEP SOLD: 05/27/2019 [facility] quetiapine 300 MG Oral Tablet [Seroquel] Seroquel 04/05/2019 12 :00:00 AM EST 300 mg completed [id number] Seroquel 04/05/2019 0 06/01/2019 at bedtime 30 300 mg tablet [id number] Melvin Daugherty 363 [id number] [facility]) Trazodone Hydrochloride 150 MG Oral Tablet trazodone 01/14 12:00:00 AM EDT 150 mg completed [id number] trazodone 201806/13/2019 at bedtime 30 150 mg tablet 48652 [id number] Melvin Daugherty 3 [id number] [facility]) Trazodone Hydrochloride 150 MG Oral Tablet trazodone 01/14 12:00:00 AM EDT 150 mg completed [id number] trazodone 201806/13/2019 at bedtime 30 150 mg tablet 74167 [id number] Melvin Daugherty 3 [id number] [facility]) Trazodone Hydrochloride 150 MG Oral Tablet trazodone 01/14 12:00:00 AM EDT 150 mg completed [id number] trazodone 201806/01/2019 at bedtime 30 150 mg tablet 37616 [id number] Melvin Daugherty 3 [id number] [facility]) Melatonin 3 MG Oral Tablet melatonin 3 MG TABS melatonin 3 M G TABS 10/17/2014 12:00:00 AM EDT 3 mg Oral aborted Take 1 tablet by mouth nightly. [facility] Lurasidone Hydrochloride 40 MG Oral Tablet Lurasidone HCl (LATUDA) 40 MG TABS Lurasidone HCl (LATUDA) 40 MG TABS 07/10/2014 12:00:00 AM EST 40 mg Oral aborted Take 1 tablet by mouth daily. [facility] Nicotine 2 MG Chewing Gum nicotine (polacrilex) 2 mg g um nicotine (polacrilex) 2 mg gum completed nicotine 2 MG Chewing Gum [facility] ([facility]) Clindamycin 300 MG Oral Capsule clindamy lashawn HCl 300 mg capsule TAKE 1 CAPSULE BY MOUTH 4 TIMES A DAY DIRECTED 8AM 1P.M 5PM 9PM FOR 7 DAYS clindamycin HCl 300 mg capsule TAKE 1 CAPSULE BY MOUTH 4 TIMES A DAY DIRECTED 8AM 1P.M 5PM 9PM FOR 7 DAYS completed clindamycin 300 MG Oral Capsule [facility] ([facility]) quetiapine 200 MG Oral Tablet quetiapine 200 mg tablet TAKE 2 AND 1/2 TABLETS BY MOUTH AT BEDTIME FOR MOOD quetiapine 200 mg tablet TAKE 2 AND 1/2 TABLETS BY MOUTH AT BEDTIME FOR MOOD completed quetiapine 200 MG Oral Tablet [facility] ([facility]) Lisinopril 20 MG Oral Tablet lisinopril (PRINIVIL,ZEST RIL) 20 MG tablet lisinopril (PRINIVIL,ZESTRIL) 20 MG tablet 20 mg Oral aborted Take 20 mg by mouth daily [facility] Insurance Providers Payer name Policy type / Coverage type Policy ID Covered green party ID Covered green party's relationship to bright Policy Bright Plan Information [facility] [employer] [id number] SP [id number] [place] [id number] Unemploye d [id number] MEDICAID [id number] Unemployed [id number] [place] [id number] S [id number] STPP Wrap [id number] Total Care Inc [id number] [facility] I [id number] Self [id number] Managed Care - [facility] Community Plan P [id number] S [id number] Medicaid S [id number] S [id number] [facility] I [id number] Self [id number] [facility] [id number] Self [id number] [facility] I [id number] Self [id number] [facility] I [id number] Self [id number] [facility] I [id number] Self [id number] [facility] I [id number] Self [id number] [facility] PL[facility] [id number] SP [id number] [facility] [id number] SP [id number] [facility] O [id number] S [id number] Managed Care - UHC Community Plan P [id number] S [id number] Managed Care - Community Plan [employer] P [id number] S [id number] Medicaid S [id number] S [id number] UNHC COMMUNITY PLAN MCDHMO [id number] SP [id number] UNHC COMMUNITY PLAN MCDHMO [id number] SP [id number] MEDICAID [id number] SP [id number] [place] [id number] Self [id number] [facility] Commercial [id number] Self [id number] Managed Care - Community Plan [facility] P [id number] S [id number] [facility] DEPT [id number] SP [id number] [facility] [place] [id number] SP [id number] [facility] Commercial [id number] Self [id number] [facility] Commercial [id number] Self [id number] [place] [id number] Self [id number] [facility] Commercial [id number] Self [id number] Medicaid S [id number] S [id number] Self Pay P [id number] S [id number] SELF PAY ONLY [id number] SP [id number] Managed Care - Community Plan [facility] P [id number] S [id number] [facility]) O [id number] S [id number] [place]ig[place] [id number] Self [id number] UN[facility] COMMUNITY PLAN MCDHMO [id number] SP [id number] UNHC COMMUNITY PLAN MCDHMO [id number] SP [id number] Managed Care - Community Plan [facility] P [id number] S [id number] [facility]-Community Plan[facility] Commercial [id number] Self [id number] [facility] [id number] SP [id number] [facility] MEDICAID [facility] [id number] Radha [id number] MEDICAID [id number] Radha [id number] UNHC COMMUNITY PLAN MCDHMO [id number] SP [id number] UNHC COMMUNITY PLAN MCDHMO [id number] SP [id number] UNHC COMMUNITY PLAN MCDHMO [id number] SP [id number] TOTAL CARE INC [id number] SP [id number] TOTAL CARE INC O [id number] S [id number] TOTAL CARE INC O [id number] S [id number] [employer] O [id number] S [id number] [employer] [place] [id number] SP [id number] MEDICAID M [id number] S [id number] TOTAL CARE I [id number] Self [id number] TOTAL CARE I [id number] Self [id number] TOTAL CARE I [id number] Self [id number] TOTAL CARE I [id number] Self [id number] SELF PAY UNAVAILABLE SP UNAVAILA BLE MEDICAID M [id number] Self [id number] TOTAL CARE I [id number] Self [id number] TOTAL CARE I [id number] Self [id number] MEDICAID M [id number] Self [id number] TOTAL CARE I [id number] Self [id number] MEDICAID GME W [id number] [id number] TOTAL CARE O [id number] S [id number] MEDICAID W [id number] S [id number] SELF PAY 2 UNAVAILABLE 1 UNAVAILA BLE TOTAL CARE MEDICAID 2 [id number] SSI 1 [id number] SSI [place] 3 [id number] Problems, Conditions, and Diagnoses Code Display Name Description Problem Type Effective Dates Data Source(s) F15.10 Other stimulant abuse, uncomplicated Sti mulant Use Disorder, Mild: Other or unspecified stimulant Condition 06/25/2020 12:00:00 AM EST [facility] ([facility]) Z72.0 Tobacco use Tobacco Use Disorder, Mild Condition 0 06/25/2020 12:00:00 AM EST [facility] ([facility]) F10.20 Alcohol dependence, uncomplicated Alcohol Use Di sorder, Moderate Condition 06/25/2020 12:00:00 AM EST [facility] ([facility]) F29 Unspecified psychosis not du e to a substance or known physiological condition Unspecified Schizophrenia Spectrum and Other Psychotic Disorder Condition 06/25/2020 12:00:00 AM EST [facility] ([facility]) F31.9 Bipolar disorder, unspecified Bipolar I Disorder, Current or most recent episode unspecified Condition 07/20/2019 12:00:00 AM EST [facility] ([facility]) F20.9 Schizophrenia, unspecified Schizophrenia Condition 07/20/2019 12:00:00 AM EST [facility] ([facility]) F15.20 Other stimulant dependence, uncomplicate d OTHER STIMULANT DEPENDENCE, UNCOMPLICATED Diagnosis 04/30/2020 02:00:00 PM [facility] Z87.891 Personal history of nicotine dependence PERSONAL HISTORY OF NICOTINE DEPENDENCE Diagnosis 04/25/2020 12:12:00 PM [facility] E11.9 Type 2 diabetes mellitus without complic ations TYPE 2 DIABETES MELLITUS WITHOUT COMPLICATIONS Diagnosis 04/25/2020 12:12:00 PM [facility] I10 Essential (primary) hypertension ESSENTIAL (PRIMARY) H YPERTENSION Diagnosis 04/25/2020 12:12:00 PM [facility] M47.896 Other spondylosis, lumbar region OTHER SPONDYLOS IS, LUMBAR REGION Diagnosis 04/25/2020 12:12:00 PM [facility] M54.5 Low back pain LOW BACK PAIN Diagnosis 04/25/2020 12:12:00 PM [facility] Z13.220 Encounter for screening for lipoid disor ders ENCOUNTER FOR SCREENING FOR LIPOID DISORDERS Diagnosis 12/01/2019 08:36:00 PM [facility] Z11.59 Encounter for screening for other viral diseases ENCOUNTER FOR SCREENING FOR OTHER VIRAL DISEASES Diagnosis 11/03/2019 10:31:00 PM [facility] K59.00 Constipation, unspecified CONSTIPATION, UNSPECIFIED Di agnosis 07/25/2019 12:31:00 PM [facility] K08.89 Other specified disorders of teeth and s upporting structures OTHER SPECIFIED DISORDERS OF TEETH AND SUPPORTING STRUCTURES Diagnosis 07/25/2019 12:31:00 PM [facility] F31.9 Bipolar disorder, unspecified BIPOLAR DISORDER, UNSPEC IFIED Diagnosis 07/25/2019 12:31:00 PM [facility] F20.9 Schizophrenia, unspecified SCHIZOPHRENIA, UNSPECIFIED Diagnosis 07/25/2019 12:31:00 PM [facility] E55.9 Vitamin D deficiency, unspecified VITAMIN D DEFI CIENCY, UNSPECIFIED Diagnosis 07/25/2019 12:31:00 PM [facility] H54.62 Unqualified visual loss, left eye, favio l vision right eye UNQUALIFIED VISUAL LOSS, LEFT EYE, NORMAL VISION RIGHT EYE Diagnosis 020 12:31:00 PM [facility] J44.9 Chronic obstructive pulmonary disease, u nspecified CHRONIC OBSTRUCTIVE PULMONARY DISEASE, UNSPECIFIED Diagnosis 07/25/2019 12:31:[address] [facility] Z87.820 Personal history of traumatic brain inju ry PERSONAL HISTORY OF TRAUMATIC BRAIN INJURY Diagnosis 07/25/2019 12:31:00 PM [facility] Z68.36 Body mass index (BMI) 36.0-36.9, adult B JOSE ANTONIO MASS INDEX (BMI) 36.0-36.9, ADULT Diagnosis 07/25/2019 12:31:00 PM [facility] E66.9 Obesity, unspecified OBESITY, UNSPECIFIED Diagnosis 07/25/2019 12:31:00 PM [facility] F17.210 Nicotine dependence, cigarettes, uncompl icated NICOTINE DEPENDENCE, CIGARETTES, UNCOMPLICATED Diagnosis 07/25/2019 12:31:00 PM [facility] F12.20 Cannabis dependence, uncomplicated CANNABIS DEPE NDENCE, UNCOMPLICATED Diagnosis 07/25/2019 12:31:00 PM [facility] 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82 Altered mental status, unspecified Altered menta l status, unspecified Diagnosis 07/14/2019 05:18:53 PM [facility] G93.40 Encephalopathy, unspecified Encephalopathy, unspecifie d Diagnosis 07/14/2019 05:18:53 PM [facility] possible stroke possible stroke Diagnosis 07/14/2019 05:1 8:53 PM [facility] I11.0 Hypertensive heart disease with heart fa ilure HYPERTENSIVE HEART DISEASE WITH HEART FAILURE Diagnosis 05/31/2019 09:46:00 AM [facility] R51 Headache HEADACHE Diagnosis 05/31/2019 09:46:00 AM ES T [facility] I50.30 Unspecified diastolic (congestive) heart failure UNSPECIFIED DIASTOLIC (CONGESTIVE) HEART FAILURE Diagnosis 05/31/2019 09:46:00 AM [facility] Surgeries/Procedures Procedure Description Date Indications Data Source(s) Psychiatric Diagnostic Evaluation with Medical Services 06/25/2020 12:00:00 AM EST - 06/25/2020 12:00:00 AM EST [facility] ([facility]) Psychiatric Diagnostic Evaluation with Medical Services 06/25/2020 12:00:00 AM EST [facility] ([facility]) Psychiatric Diagnostic Evaluation (Non-Medical) 06/19/2020 12:00:00 AM EST - 06/19/2020 12:00:00 AM EST [facility] ([facility]) Psychiatric Diagnostic Evaluation (Non-Medical) 2020 12:00:00 AM EST [facility] ([facility]) Psychiatric Diagnostic Evaluation (Non-Medical) 06/05/2020 12:00:00 AM EST - 06/05/2020 12:00:00 AM EST [facility] ([facility]) Psychiatric Diagnostic Evaluation (Non-Medical) 2020 12:00:00 AM EST [facility] ([facility]) Brief Individual Psychotherapy - 30 min 05/09/2020 12:00:00 AM EST - 05/09/2020 12:00:00 AM EST [facility] ([facility]) Brief Individual Psychotherapy - 30 min 05/09/2020 12: 00:00 AM EST [facility] ([facility]) Alcohol and/or substance (other than tob acco) abuse structured assessment (e.g., audit, dast), and intervention, greater than 30 minutes 04/30/2020 12:00:00 AM [facility] CT LUMBAR SPINE W/O CONTRAST MATERIAL CT LUMBAR SPINE W/O DY E 04/25/2020 12:00:00 AM [facility] Non-covered item or service NON-COVERED ITEM OR SERVICE 06/2019 12:00:00 AM [facility] EMERGENCY DEPARTMENT VISIT HIGH/URGENT SEVERITY EMERGENCY DE PT VISIT 04/25/2020 12:00:00 AM [facility] Alcohol and/or substance (other than tob acco) abuse structured assessment (e.g., audit, dast), and brief intervention 15 to 30 minutes 04/02/2020 12:00:00 AM [facility] Alcohol and/or drug services; group counseling by a bethany jacob 03/13/2020 12:00:00 AM EDT [facility] Individual Counseling for Substance Abuse Treatment, C ognitive-Behavioral INDIV CRYSTAL GRINDER FOR SUBSTANCE ABUSE, COGNITIVE BEHAVIORAL 07/27/2019 12:00:00 AM [facility] Group Counseling for Substance Abuse Treatment, Motiva tional Enhancement GROUP CRYSTAL GRINDER FOR SUBSTANCE ABUSE, MOTIVATIONAL ENHANCE 07/27/2019 12:00:00 AM [facility] Group Counseling for Substance Abuse Treatment, Spirit ual GROUP COUNSELING FOR SUBSTANCE ABUSE TREATMENT, SPIRITUAL 07/27/2019 12:00:00 AM [facility] Group Counseling for Substance Abuse Treatment, Cognit sigrid-Behavioral GROUP CRYSTAL GRINDER FOR SUBSTANCE ABUSE, COGNITIVE BEHAVIORAL 07/27/2019 12:00:00 AM [facility] POCT GLUCOSE, DOCKED POCT GLUCOSE, DOCKED Routine 07/25/2019 6:26 AM EST 07/25/2019 11:26:00 AM [facility] POCT GLUCOSE, DOCKED POCT GLUCOSE, DOCKED Routine 07/24/2019 5:39 PM EST 07/24/2019 10:39:00 PM [facility] HEMOGLOBIN GLYCOSYLATED A1C HEMOGLOBIN A1C Routine 07/20/2019 6:13 AM EST 07/20/2019 11:13:00 AM [facility] LIPID PANEL LIPID PANEL Routine 07/20/2019 6:13 AM EST 07/20/2019 11:13:00 AM [facility] OFFICE OUTPATIENT VISIT 15 MINUTES 07/20 12:00:00 AM EST - 07/20/2019 12:00:00 AM EST [facility] ([facility]) OFFICE OUTPATIENT VISIT 15 MINUTES 07/20/2019 12:00:00 AM EST [facility] ([facility]) PALIPERIDONE SERUM PALIPERIDONE SERUM Routine 07/18/2019 2:[address] 07/18/2019 07:45:00 PM [facility] GLUCOSE QUANTITATIVE BLOOD XCPT REAGENT STRIP POCT GLUCOSE, DOC KED Routine 07/15/2019 5:46 PM EST 07/15/2019 10:46:00 PM [facility] POCT GLUCOSE, DOCKED POCT GLUCOSE, DOCKED Routine 07/15/2019 12:02 PM EST 07/15/2019 05:02:00 PM [facility] POCT GLUCOSE, DOCKED POCT GLUCOSE, DOCKED Routine 07/15/2019 8:06 AM EST 07/15/2019 01:06:00 PM [facility] DRUGS OF ABUSE, URINE DRUGS OF ABUSE, URINE STAT 07/15/2019 1:3 7 AM EST 07/15/2019 06:37:00 AM [facility] URNLS DIP STICK/TABLET REAGENT AUTO MICROSCOPY URINALYSIS W ITH MICROSCOPIC STAT 07/15/2019 1:37 AM EST 07/15/2019 06:37:00 AM [facility] GLUCOSE QUANTITATIVE BLOOD XCPT REAGENT STRIP POCT GLUCOSE, DOC KED Routine 07/14/2019 10:05 PM EST 07/15/2019 03:05:00 AM [facility] XR CHEST FRONTAL ONLY [id number] XR CHEST FRONTAL ONLY [id number] STAT 07/14/2019 6:00 PM EST 07/14/2019 11:00:00 PM EST [facility] THROMBOPLASTIN TIME PARTIAL PLASMA/WHOLE BLOOD PARTIA L THROMBOPLASTIN TIME (PTT) STAT 07/14/2019 5:48 PM EST 07/14/2019 10:48 :00 PM [facility] ACETAMINOPHEN, RANDOM ACETAMINOPHEN, RANDOM STAT 07/14/2019 5:4 8 PM EST 07/14/2019 10:48:00 PM [facility] ETHYL ALCOHOL LEVEL ETHYL ALCOHOL LEVEL STAT 07/14/2019 5:48 PM EST 07/14/2019 10:48:00 PM [facility] PROTHROMBIN TIME PROTIME INR STAT 07/14/2019 5:48 PM EST 07/14/2019 10:48:00 PM [facility] BLOOD COUNT COMPLETE AUTO&AUTO DIFRNTL WBC COUNT CBC AND DIFFER ENTIAL STAT 07/14/2019 5:48 PM EST 07/14/2019 10:48:00 PM [facility] THYROID STIMULATING HORMONE TSH TSH STAT 07/14/2019 5:48 PM EST 07/14/2019 10:48:00 PM [facility] THYROXINE FREE T4, FREE STAT 07/14/2019 5:48 PM EST 07/14/2019 10:48:00 PM [facility] CARBOXYHEMOGLOBIN QUANTITATIVE CARBOXYHEMOGLOBIN STAT 06/26 5:48 PM EST 07/14/2019 10:48:00 PM [facility] SALICYLATE LEVEL SALICYLATE LEVEL STAT 07/14/2019 5:48 PM EST 07/14/2019 10:48:00 PM [facility] COMPREHENSIVE METABOLIC PANEL COMPREHENSIVE METABOLIC PANEL STA T 07/14/2019 5:48 PM EST 07/14/2019 10:48:[address] [facility] TROPONIN QUANTITATIVE POCT ISTAT TROPONIN STAT 07/14/2019 5:46 PM EST 07/14/2019 10:46:32 PM [facility] EKG 12-LEAD - CMAXX REPORT EKG 12-LEAD - CMAXX REPORT 07/14/2019 5:40 PM EST 07/14/2019 10:40:[address] [facility] EKG 12-LEAD - CMAXX REPORT EKG 12-LEAD - CMAXX REPORT 07/14/2019 5:40 PM EST 07/14/2019 10:40:[address] [facility] EKG 12-LEAD EKG 12-LEAD STAT 07/14/2019 5:40 PM EST 07/14/2019 10:40:56 PM [facility] BASIC METABOLIC PANEL CALCIUM IONIZED POCT ISTAT CHEM8 Routine 07/14/2019 5:40 PM EST 07/14/2019 10:40:[address] [facility] EKG 12-LEAD - CMAXX REPORT EKG 12-LEAD - CMAXX REPORT 07/14/2019 5:40 PM EST 07/14/2019 10:40:[address] [facility] BLOOD GASES ANY COMBINATION PH PCO2 PO2 CO2 HCO3 POCT ISTAT VBG /LAC Routine 07/14/2019 5:36 PM EST 07/14/2019 10:36:00 PM [facility] TROPONIN QUANTITATIVE POCT ISTAT TROPONIN Routine 07/14/2019 5:35 PM EST 07/14/2019 10:35:[address] [facility] CT ANGIOGRAPHY NECK W/CONTRAST/NONCONTRAST CT ANGIOGRAPHY NECK [id number] STAT 07/14/2019 5:34 PM EST 07/14/2019 10:34:[address] [facility] CT ANGIOGRAPHY HEAD W/CONTRAST/NONCONTRAST CT ANGIOGRAPHY HEAD [id number] STAT 07/14/2019 5:34 PM EST 07/14/2019 10:34:25 PM [facility] Brief Individual Psychotherapy - 30 min 07/01/2019 12:00:00 AM EST - 07/01/2019 12:00:00 AM EST [facility] ([facility]) Brief Individual Psychotherapy - 30 min 07/01/2019 12: 00:00 AM EST [facility] ([facility]) OFFICE OUTPATIENT VISIT 15 MINUTES 06/10 12:00:00 AM EST - 06/10/2019 12:00:00 AM EST [facility] ([facility]) OFFICE OUTPATIENT VISIT 15 MINUTES 06/10/2019 12:00:00 AM EST [facility] ([facility]) Extended Individual Psychotherapy - 45 min 05/31/2019 12:00:00 AM EST - 05/31/2019 12:00:00 AM EST [facility] ([facility]) Extended Individual Psychotherapy - 45 min 0 12:00:00 AM EST [facility] ([facility]) Results ID Date Data Source [id number] 04/25/2020 12:12:00 PM EST [facility] Name: AKBAR FLORES [facility] Rec #: [id number] : 1965 Age/Sex: 55M Date of Service: 04/25/20 PHYSICIAN CHART Physician Documentation [facility] Name: Akbar Flores Age: 55 yrs Sex: Male : 1965 Arrival Date: 04/25/2020 Time: 12:12 Bed FT3 Private MD: Dr. Trev ED Physician Kev Jenkins Disposition: 04/25 16:30 Attestation: Patient was seen by the [facility] ml8 Provider. I was personally available in the department for consultation but did not see or discuss the patient with them. HPI: 14:39 This 55 yrs old Male presents to ER via [facility] with complaints of Back Pain. 14:39 The patient presents with pain that is acute, with no known cpg mechanism of injury. The symptoms are located in the low back. Onset: The symptoms/episode began/occurred acutely, 3 hour(s) ago. The pain does not radiate. Associated signs and symptoms: Pertinent negatives: Gait disturbance hematuria, bladder incontinence, bowel incontinence, Saddle Paresthesia shortness of breath, tingling, urinary symptoms weakness. The problem was sustained from unknown cause. Severity of symptoms: At their worst the symptoms were incapacitating, just prior to arrival, in the emergency department the symptoms are unchanged, despite EMS interventions. The patient has experienced a previous episode, 1993. Akbar awoke with some low back pain that increased acutely when he tried to go to the bathroom. He arrived via EMS because he could not stand. Upon arrival here he was able to walk to the bed but it was extremely difficult for him. He states he had an injury in 1993 but has had no trouble since then. Historical: - Allergies: No known drug Allergies; - Home Meds: 1. metformin 1,000 mg Oral TG24 1 tab 2 times per day 2. lisinopril 20 mg Oral tab 1 tab once daily 3. Seroquel 50 mg Oral tab 1 tab 2 times per day 4. trazodone 100 mg Oral tab 1 tab once daily - PMHx: Hypertensive disorder; Diabetes mellitus; - Med Reconciliation:: Green Alert: The patient's med list is complete to the best of the nurse's/provider's knowledge. Medicat ions reviewed, verbally from patient/family. - Immunization history: All immunizations are up to date. - : Family history not pertinent. - Advance directive: There is no existing advanced directive. Information offered. - Family History:: mother : unknown medical history. Father : unknown medical history. - Social History: Smoking status (Tobacco): Patient states they are a former tobacco smoker, quit smoking 2 months ago ago. No barriers to communication noted. ROS: 14:39 Constitutional: See HPI. : See HPI. Back: See HPI. cpg MS/extremity: See HPI. Neuro: See HPI. All other systems are negative. Exam: 13:55 Back: pain, that is severe, of the lumbar area, ROM is cpg painful, decreased, normal spinal alignment noted, muscle spasm, is appreciated in the in low back area, Straight leg raises: left lower extremity illicits pain, at 15 degrees, Increased pain with superimposed dorsiflexion, Patient is unable to walk on his toes or his heels but is able to ambulate with moderate amount of difficulty secondary to pain. 13:55 : Bladder: is normal, non-distended, non-tender. 13:55 Neuro: Sensation: is normal, no obvious gross deficits, Gait: limited by pain, Deep tendon reflexes are 1 (trace) + in the right patellar and left patellar. 13:55 Psych: Behavior/mood is pleasant, cooperative. 14:39 Constitutional: The patient appears alert, appears to be cpg awake, appears to be in obvious pain, is obviously uncomfortable, well hydrated, appears well nourished. 14:39 Cardiovascular: Rate: normal, Rhythm: regular. 14:39 Respiratory: the patient does not display signs of respiratory distress, Respirations: normal. V ital Signs: 12:20 BP 147 / 99; Pulse 98; Resp 18; Temp 97.9; Pulse Ox 94% ; dk2 Weight 98.43 kg; Height 6 ft. 2 in. (187.96 cm); 14:17 BP 152 / 92; Pulse 88; Resp 18; Pulse Ox 95% on R/A; Pain awr 3/10; 12:20 Body Mass Index 27.86 (98.43 kg, 187.96 cm) dk2 [place] Coma Score: 13:55 Eye Response: spontaneous(4). Verbal Response: oriented(5). cpg Motor Response: obeys commands(6). Total: 15. MDM: 12:40 Patient medically screened. cpg 13:56 Data reviewed: vital signs, nurses notes. cpg 14:03 ED course: Akbar has stable while in the department. Pain cpg has improved. I will discharge him to home. His CT of the back reveals no soft tissue or epidural osseous or abscesses but there was some spondylosis noted with disc bulging at 4-5 and 5-1. 04/25 13:11 Order name: Ct Lumbar Spine No Contrast cpg Dispensed Medications: 13:17 Drug: oxyCODONE 10 mg [oxycodone 5 mg capsule (2 caps)] awr Route: PO; 13:17 Drug: Cyclobenzaprine 10 mg [cyclobenzaprine 10 mg tablet awr (1 tabs)] Route: PO; 13:17 Drug: Ibuprofen 600 mg [ibuprofen 600 mg tablet (1 tabs)] awr Route: PO; Disposition Summary: 04/25/20 14:05 Discharge Ordered Location: Home/Self Care cpg Problem: new cpg Symptoms: have improved cpg Condition: Good cpg Diagnosis - Acute Low Back Pain cpg Followup: cpg - With: Private Physician - When: 1 week - Reason: Recheck today's complaints Discharge Instructions: - Discharge Summary Sheet cpg - Acute Back Pain, Adult cpg - Back Exercises, Rydm-uh-Rnpt cpg Forms: - Medication Reconciliation cpg Prescriptions: - Ibuprofen 800 mg Oral Tablet - take 1 tablet by ORAL route every 8 hours As needed cpg take with food; 30 tablet; Refills: 0, Product Selection Permitted - Cyclobenzaprine 10 mg Oral Tablet - take 1 tablet by ORAL route every 8 hours; 30 cpg tablet; Refills: 0, Product Selection Permitted Signatures: Dispatcher [employer] Sam Mckee, [employer] DAT[employer]ASES 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 Trev Diagnosis: Acute Low Back Pain Presentation: 04/25 12:22 Transition of care: patient was not received from another [facility] setting of care. Presenting complaint: Patient states - patient states that he developed low back pain on the left . He denies any injury to it. he states that he did injure it 1993 but has had no problems since. Have you travelled in the last 30 days? No. Have you had contact with an individual with a confirmed diagnosis of Ebola or COVID-19? No. 12:22 Method Of Arrival: [facility] dk2 12:22 Acuity: Semi-Urgent - 4 dk2 Triage Assessment: 12:24 SEPSIS SCREEN: A Confirmed or Suspected Infection is dk2 Unknown, their temperature is not <96.8 or >100.9, their heart rate is not >90, their RR is not >20, it is unknown if their WBC is <4 or >12, the patient does not have new or unexplained altered mental status. SIRS or Sepsis criteria is not present. Suicide Screening: Have you had thoughts of harming yourself or others? No. The patient appears to have some mild discomfort, The patient is behaving appropriately according to age, cooperative. Patient states the pain is currently a 10 / 10 The patient complains of pain in left lower back. Historical: - Allergies: No known drug Allergies; - Home Meds: 1. metformin 1,000 mg Oral TG24 1 tab 2 times per day 2. lisinopril 20 mg Oral tab 1 tab once daily 3. Seroquel 50 mg Oral tab 1 tab 2 times per day 4. trazodone 100 mg Oral tab 1 tab once daily - PMHx: Hypertensive disorder; Diabetes mellitus; - Med Reconciliation:: Green Alert: The patient's med list is complete to the best of the nurse's/provider's knowledge. Medications reviewed, verbally from patient/family. - Immunization history: All immunizations are up to date. - : Family history not pertinent. - Advance directive: There is no existing advanced directive. Information offered. - Family History:: mother : unknown medical history. Father : unknown medical history. - Social History: Smoking status (Tobacco): Patient states they are a former tobacco smoker, quit smoking 2 months ago ago. No barriers to communication noted. Screenin:47 AUDIT 1. How often do you have a drink containing alcohol? sm6 2 to 3 times a week (3 points) 2. How many standard drinks containing alcohol do you have on a typical day when drinking? 5 or 6 (2 points). Drug Abuse Screening Test: 1. Have you used drugs other than those required for medical reasons? Yes (1 point) 2. Do you use more than one drug at a time? Yes (1 point) 3. Are you always able to stop using drugs when you want to? (If never used, answer "Yes") No (0 points) 4. Have you ever had blackouts or flashbacks as a result of drug use? No (0 points) 5. Do you ever feel bad or guilty about your drug use? (If never use drugs, answer "No") No (0 points) 6. Does your spouse (or parents) ever complain about your involvement with drugs? No (0 points) 7. Have you neglected your family because of your use of drugs? No (0 points) 8. Have you engaged in illegal activities in order to obtain drugs? Yes (1 point) 9. Have you ever experienced withdrawal symptoms (felt sick) when you stopped taking drugs? Yes (1 point) 10. Have you had medical problems as a result of your drug use (e.g. memory loss, hepatitis, convulsions, bleeding)? No (0 points) Total Score: Zone 3: "intermediate level" (Intervention Required) Intervention: Patient Response: in rehab x 88 days. Abuse screen: Denies threats or abuse. Nutritional screening: The patient is obese. The patient is low risk (Romero Scale= <24 pts). Fall prevention measures have been instituted. Side rails are up, patient is being reassessed frequently. Assessment: 13:19 See Triage Assessment. Patient states the pain is currently awr a 10 / 10 The patient complains of pain in back. The patient appears to have some mild discomfort, The patient is behaving appropriately according to age, cooperative. Neuro: Level of Consciousness is awake, alert, Patient is oriented to person, place and time. Vital Signs: 12:20 BP 147 / 99; Pulse 98; Resp 18; Temp 97.9; Pulse Ox 94% ; dk2 Weight 98.43 kg; Height 6 ft. 2 in. (187.96 cm); 14:17 BP 152 / 92; Pulse 88; Resp 18; Pulse Ox 95% on R/A; Pain awr 3/10; 12:20 Body Mass Index 27.86 (98.43 kg, 187.96 cm) dk2 [place] Coma Score: 13:55 Eye Response: spontaneous(4). Verbal Response: oriented(5). cpg Motor Response: obeys commands(6). Total: 15. ED Course: 12:13 Patient arrived in ED. mlr 12:21 Dr. Trev is Private Physician. dk2 12:24 Triage completed. dk2 12:25 Arm band placed on left wrist. Patient has correct armband dk2 on for positive identification. 12:32 Sam Wynn NP is PHCP. cpg 12:32 Kev Jenkins DO is Attending Physician. cpg 12:39 Red Simeon, EDWARD is Primary Nurse. awr 12:51 Patient has correct armband on for positive identification, sm6 Bed in low position, Call light in reach, Side rails up X 1. 13:19 Radiology: The patient went to get his/her CT at 13:19. awr 13:20 Ct Lumbar Spine No Contrast Sent. awr 13:25 Radiology: Patient returned from CT at 13:25. awr 14:17 No procedures ordered. No diagnostic tests ordered. awr Administered Medications: 13:17 Drug: oxyCODONE 10 mg [oxycodone 5 mg capsule (2 caps)] awr Route: PO; 13:17 Drug: Cyclobenzaprine 10 mg [cyclobenzaprine 10 mg tablet awr (1 tabs)] Route: PO; 13:17 Drug: Ibuprofen 600 mg [ibuprofen 600 mg tablet (1 tabs)] awr Route: PO; Outcome: 14:05 Discharge ordered by . cpg 14:17 Patient verbalized understanding of disposition awr instructions. Patient has no functional deficits. 14:17 [facility] discharged [facility] 14:17 Condition: stable 14:17 Discharge instructions given to patient, Patient was instructed on discharge instructions, follow up and referral plans, medication usage, Prescriptions given X 2. 14:17 Vitals are Complete in accordance with Emergency Department Policy. 14:18 Patient left the ED. awr 12 12:40 24 hour call back completed with no concerns vocalized. jose Signatures: Sam Wynn NP NP cpg Monroe, Susan, RN RN 6 Christi Fan RN RN dk2 Red Simeon RN RN awr Radha Saha, Debo Cid RN Corrections: (The following items were deleted from the chart) 04/25 12:25 12:22 Presenting complaint: Patient states - patient states dk2 that he developed low back pain on the right . He denies any injury to it. he states that he did injure it 1993 but has had no problems since dk2 12:27 12:20 Pulse 98bpm; Resp 18bpm; Pulse Ox 94%; Temp 97.9F; dk2 98.43 kg; Height 6 ft. 2 in.; BMI: 27.8; dk2 Name Value Range Interpretation Code Description Data Hedy rce(s) Supporting Document(s) ID Date Data Source [id number] 04/25/2020 12:12:00 PM [facility] Name: AKBAR FLORES [facility] Rec #: [id number] : 1965 Age/Sex: 55M Date of Service: 04/25/20 DISPOSITION SUMMARY Discharge Summary [facility] Name:Akbar Flores Emergency Department Age:55 yrs Sex:Male :1965 Arrival:04/25/2020 12:12 Departure Date04/25/2020 Departure Time14:18 Private MD:Dr. Trev Outcome: Discharge Location: Home/Self Care Condition: Good Chief Complaint: Back Pain Diagnosis: Acute Low Back Pain Prescriptions: Ibuprofen 800 mg Oral Tablet - take 1 tablet by ORAL route every 8 hours As needed take with food; 30 tablet, Cyclobenzaprine 10 mg Oral Tablet - take 1 tablet by ORAL route every 8 hours; 30 tablet Custom Notes: Akbar, appears you have some bulging disc at L4-L5 and L5-L1. You may need to have this followed up later. Your pain will persist for the next 2-3 days but should improve. However if it does not, please return. Take your medications as prescribed and this should help you a great deal. If you lose bowel or bladder control, unable to urinate, or has saddle paralysis, please return. Attending Physician: Kev Jenkins DO Private MD: Dr. Trev Mid Level Provider: Sam Wynn NP Orders: Ct Lumbar Spine No Contrast, oxyCODONE, Cyclobenzaprine, Ibuprofen Discharge Instruction: Discharge Summary Sheet, Acute Back Pain, Adult, Ba ck Exercises, Haju-md-Qfmp, Medication Reconciliation Name Value Range Interpretation Code Description Data Hedy rce(s) Supporting Document(s) ID Date Data Source [id number] 04/26/2020 06:23:00 AM [facility] Name: AKBAR FLORES : 1965 Age/Sex: 55M Ordering Provider: NICO Mccormick Med Rec #: [id number] Reg Status: [facility] Room #: Date of Service: 04/25/20 Report Number: [id number] cc:PCP None Send Report To: [id number] CT/CT Lumbar Spine No Contrast Reason for exam: LOW BACK PAIN, HX OF METH/COCAINE USE, NO FEVER, ? ABSCESS FINDINGS: Mild leftward curvature to the spine. DJD in the disc spaces and posterior articulations. Disc bulging at the L4/5 and the L5/S1 levels. There are no definite signs of any focal herniations. No signs of any fractures or osseous lesions identified. There are no signs of any paraspinal masses. If there is concern for epidural abscess, then MR with contrast could be performed. IMPRESSION: No definite signs of any soft tissue or epidural or osseous abscesses. Some spondylosis noted with disc bulging at 4/5 and 5/1. No other significant findings. While performing the above CT exam, the following dose reduction techniques wereused: *Automated exposure control *Adjustment of the mA and/or kV according to patient size *Use of iterative reconstruction technique CT Dose in mSv: 14.34 Contrast Agent in ml: Method of Administration: REPORT SIGNATURE ON FILE Reported By: Juan Antonio Khan MD <Electronically signed by Chetan Khan MD> 04/26/20 0921 Dictation Date/Time: 04/25/20 1342 Transcribed Date/Time: 04/26/20 06 Paper Guillotine Operator: DELL Name Value Range Interpretation Code Description Data Hedy rce(s) Supporting Document(s) ID Date Data Source [id number] 12/01/2019 09:52:[address] [facility] Name Value Range Interpretation Code Description Data Hedy rce(s) Supporting Document(s) White Blood Count 4.8-10.8 Normal (applies to non-numeri c results) [facility] Red Blood Count 4.35-6.08 Normal (applies to non-numeric results) [facility] Hemoglobin 13.0-17.5 Below low normal [facility] Hematocrit 37.7-51.0 Below low normal [facility] Mean Corpuscular Volume 80-94 Normal (applies to non- numeric results) [facility] Mean Corpuscular Hemoglobin 27.0-33.0 Normal (appli es to non-numeric results) [facility] Mean Corpuscular HGB Conc 32.0-36.0 Normal (applies to no n-numeric results) [facility] Red Cell Distribution Width 11.5-14.5 Normal (appli es to non-numeric results) [facility] Platelet Count 243 X10 3/uL 130-450 Normal (applies to non-numeric results) [facility] Mean Platelet Volume 9.6-13.1 Normal (applies to non-num jean-claude results) [facility] Imm Grans% (AUTO) 1 % 0-2 Normal (applies to non-numeri c results) [facility] Neutrophils % (AUTO) 37 % 40-75 Below low normal Ca [facility] Lymphocytes % (AUTO) 50 % 21-46 Above high normal C [facility] Monocytes % (AUTO) 8 % 5-12 Normal (applies to non-numer ic results) [facility] Eosinophils % (AUTO) 4 % 1-5 Normal (applies to non-num jean-claude results) [facility] Basophils % (AUTO) 1 % 0-1 Normal (applies to non-numer ic results) [facility] Imm Grans# (AUTO) 0.0-0.5 Normal (applies to non-numeri c results) [facility] Neutrophils # (AUTO) 1.5-8.1 Normal (applies to non-num jean-claude results) [facility] Lymphocytes # (AUTO) 1.0-3.1 Above high normal [facility] Monocytes # (AUTO) 0.2-1.3 Normal (applies to non-numer ic results) [facility] Eosinophils# (AUTO) 0.0-0.5 Normal (applies to non-nume aline results) [facility] Basophils # (AUTO) 0.0-0.1 Normal (applies to non-numer ic results) [facility] ID Date Data Source [id number] 11/07/2019 06:22:[address] [facility] COVID-19 Specimen Source NASOPHARYNGEAL Name Value Range Interpretation Code Description Data Hedy rce(s) Supporting Document(s) SARS-CoV-2 RNA Undetected Normal (applies to non-numeric r esults) [facility] SARS-CoV-2 RNA absent. This result does not rule out COVID-19 in the patient, as the sensitivity of the test depends on the timing of the specimen collection and the quality of the specimen. Result should be correlated with patient's history and clinical presentation. ADDITIONAL INFORMATION This test using the brandon SARS-CoV-2 assay ([employer] performed on the brandon 6800 System has received Emergency Use Authorization (EUA) by the U.S. Food and Drug Administration, and is modified from the marketing recruiter's instructions with a bridging study. Performance characteristics were verified by [facility] in a manner consistent with CLIA requirements. Fact sheets for this Emergency Use Authorization (EUA) assay can be found at the following links: For Healthcare Providers: https://www.fda.gov/media/857872/download For Patients: https://www.fda.gov/media/969710/download Test Performed by: [address] [address] Podiatric Medicine Professor: Curt Weber M.D. Ph.D.; CLIA# [id number] ID Date Data Source [id number] 11/03/2019 09:31:00 PM EDT [facility] Name Value Range Interpretation Code Description Data Hedy rce(s) Supporting Document(s) SARS-CoV-2 RNA Resp Ql IVANA+probe [facility] This lab was ordered by [facility] no and reported by [facility] DLMP. ID Date Data Source [id number] 08/26/2019 07:55:[address] [facility] Name Value Range Interpretation Code Description Data Hedy rce(s) Supporting Document(s) LAB Glucose,Fingerstick 115 mg/dL 70-110 Above high normal [facility] ID Date Data Source [id number] 08/25/2019 09:47:[address] [facility] Name Value Range Interpretation Code Description Data Hedy rce(s) Supporting Document(s) LAB Glucose,Fingerstick 205 mg/dL 70-110 Above high normal [facility] ID Date Data Source [id number] 08/25/2019 04:49:[address] [facility] Name Value Range Interpretation Code Description Data Hedy rce(s) Supporting Document(s) LAB Glucose,Fingerstick 129 mg/dL 70-110 Above high normal [facility] ID Date Data Source [id number] 08/25/2019 11:58:00 AM EDT [facility] Name Value Range Interpretation Code Description Data Hedy rce(s) Supporting Document(s) LAB Glucose,Fingerstick 176 mg/dL 70-110 Above high normal [facility] ID Date Data Source [id number] 08/13/2019 10:46:58 PM EDT [facility] Name Value Range Interpretation Code Description Data Hedy rce(s) Supporting Document(s) [facility] FBEIMn9gYrUXCdIc83/GCWhdNDHhs7PmZLbfVTr3MPopGCCrA4NbALW7jI7jXRL8ODuCSgTaGdAqCnUa [facility] [file] +pw2M2blUp3eK2ibsv6sj8DLgt4es4SjxRkA/0q6+Concepción/bLQGo3ut5+Sea5TB3+Ie28MxX504g95sWU/ [file] heel room supervisor+ywXgZPSWeX5xZj8CA8ZzdBElQWFzsOs3zpVIdh [file] RPTODaeUw+L5OyC9CwdjUIoFR5dnIHiEdq2zdxQn/mmTFfzDX86/AVIONICS SYSTEMS REPAIRER+iPWVnPgp2ySD9jwb/Zgto4rM [file] DQplbmRvYmoNCnhyZWYNCjAgNTgNCjAwMDAwMDAwMD XmZeG4LzObAs0IICZpBIPaHFWxBfBzMQYjIYUiGXbbEOJjBgOpIFP8FNZjBNRkIS2QCsOqSFJaIQV1PE ghRGIvRHPfdy8LWBIlQIQlRXX0JeAeFOIqKHZqDIimKGIhUSAyKYWvODHuNIEsHM5FFkFuGAZtTIO6AC KlXIWuKNGahp5AWIYxTFIoHdC7UaUzGVGyPHEsKOit EKNvJGK5IycvBCBgHEMaHY1JIvUyYRMwHRozMaCgOADmLGGeuq7EKVLwCCJmSYR3DUVoDOCuMCQyLHwj LHQfLDZbBTWbWSMySLCeCF2VJhGjIWNoGOX1HnhuCFMwSYDjmv1GTAMpISMkSVJuMBQyYLXoCCDzLOic VMOgFMS8MBJ0QPEsALWzIV5UXvWoDLNpTQM7BYFvGB CuNTHdch1ECPCxBQPhQMqlHsTpELMaFLJpCWmlUDGtYAI0LQP7KDSzPCLtIE8WVbLvCTLfKIW6KAKfLQ EeIIPcze9BSXYgOVOtISF7WaNpPYIdISFdOSiuQAGpZJN2RjbbCDHlZKEyUG4LDgOdOQBoTOm7VZelHG SkNWAycg0KGACoDUK3ZdX7IVMoHSPnVXZyJXubLNXn AVXpDDllJYBjOAHzAP2BZhMgODYjBiLrTRAxOCJaPAHxpp7MWMWhAOXyLMQ7DDXsFIHfYFDdZCigYAJo QXNxGHOcSHWfZSTqIK0BMmRhLRJrGsMiXUWaNWSvDGMrei6RBGFxIMOmZbL4FjLlZPGrQRNrSHftUQQn ELWrGlnzQTAuKMGmHZ8BBxVlUZLjWnA5USHaCKYwMJ Syda1GXYNqYNXcVxd7CzTrGUJzRAXaTAybATWnZIJ8VFX0QGLeGVTlMA5KVuGeESJvQeT3LkUpIUXqOS Hlxj0KJHRdZBKjQCl6QLAxROShFRGeMUunEEAdSNF6CNE6BOBwQMJtGK8PZvDaTZCxNbZaBTuiAIWiZY Rfcw6KBQFvFJCkVmIdLEXfPCEdYEZsUAqzNBWbLIP4 Wlg7TRSrBEQzWH4NXmNiLWNbHfr2RwTsBBWaWBJaiw5NKCEmBGJcEpj7WBNzSBUoNFHlGEwtUSRnAGD4 Xpq2NKMbMACdDV7ANgDxIBLeRzr0QHZsLOHgCCSdiy0WKMOnDPCxBUP0NkPrMGOeGIWqBVwdRIDrPRO6 PSL3JXMsHUTcRB4AQsAeVWPmNCF1SJDgUNPkGSGpcc 4LIHUdEYQ5YRD2VTFrOJKyKKBnQUhrEDSkXWO2HNi9TMJvJGXmSQ8XTdJeTAJtRQk7CMYkEDJxYZDpxg 0SLLIhSIPuQEzyQaChQSYkTLBpXAtxNZAoHmK6XdijKFNtOLQcQH6GCaDcENXaBwJ2STFvRMRpPMBxlh 9LSHGjOTO3UoHfGTNeMJYdSLYsZQnhJOEmDrVhNPA7 CEHrELUgRD3MSsEgLDQrPUW3YacuCQOdBNMzwj3WFEFyTMD2HiW2AEHdJXVdJSWkLLusOWSzZmFaCROr LLQuSOFjLB2QDlEhIERmNHI8NEmrMUNaEXHpit2SyHKsxRnwzu1ZQZyHAe7VaPdlMZO2HNdmOw4wpYZ6 MjXwDHNJMy9PttTyVFPdXKJZIFlvOFCoCNR4WoG9Eh p0Mxk7AmHeFfX4JegoPdj7YQB5RsxrKBJzPcO3UTt3ZXziAuB4HzJxDJL2UQVsB7ItWDg7KtStLMX9Xs I+PG0wKCm+Hm9Pp9BzbzL2erBjLDicYCD9PxKXNwTqLA2KGIl= ID Date Data Source [id number] 07/26/2019 11:45:00 AM EST [facility] Name Value Range Interpretation Code Description Data Hedy rce(s) Supporting Document(s) Sodium 138 mmol/L 137-145 Normal (applies to non-numeric resul ts) [facility] Potassium 3.5-5.1 Normal (applies to non-numeric resul ts) [facility] Chloride 103 mmol/L 98-112 Normal (applies to non-numeric resul ts) [facility] Carbon Dioxide CO2 22.0-33.0 Normal (applies to non-numer ic results) [facility] Anion Gap 4.0-11.0 Normal (applies to non-numeric resul ts) [facility] BUN 10 mg/dL 9-20 Normal (applies to non-numeric resul ts) [facility] Creatinine 0.80-1.50 Normal (applies to non-numeric resul ts) [facility] GFR 85 mL/min >60 Normal (applies to non-numeric resul ts) [facility] Result based on MDRD formula. Glucose Level 140 mg/dL 74-99 Above high normal [facility] The reference range is only applicable w hen fasting. Calcium-Uncorrected 8.4-10.2 Normal (applies to non-nume aline results) [facility] Corrected Calcium 8.4-10.2 Normal (applies to non-numeri c results) [facility] Bilirubin,Total 0.2-1.3 Normal (applies to non-numeric results) [facility] Bilirubin,Direct 0.0-0.3 Normal (applies to non-numeric results) [facility] SGOT(AST) 11 U/L 17-59 Below low normal [facility] SGPT(ALT) 17 U/L 21-72 Below low normal [facility] Alkaline Phosphatase 89 U/L 38-126 Normal (applies to non-num jean-claude results) [facility] can increase Alkaline Phosp le vels up to 2 times the normal adult value. Normal values for children and adolescents are 2 to 3 times the normal adult value. CPK 95 U/L 39-308 Normal (applies to non-numeric resul ts) [facility] Total Protein 6.3-8.2 Normal (applies to non-numeric re sults) [facility] Albumin 3.5-5.0 Normal (applies to non-numeric resul ts) [facility] Thyroid Stimulate Hormone TSH 0.358-3.740 No rmal (applies to non-numeric results) [facility] ID Date Data Source [id number] 07/26/2019 11:45:00 AM EST [facility] Name Value Range Interpretation Code Description Data Hedy rce(s) Supporting Document(s) Magnesium 1.80-2.40 Below low normal [facility] ID Date Data Source [id number] 07/26/2019 11:45:00 AM EST [facility] Name Value Range Interpretation Code Description Data Hedy rce(s) Supporting Document(s) C-Reactive Protein,Wide Range <3.00 Above high normal [facility] ID Date Data Source [id number] 07/26/2019 11:12:00 AM EST [facility] Name Value Range Interpretation Code Description Data Hedy rce(s) Supporting Document(s) White Blood Count 4.8-10.8 Normal (applies to non-numeri c results) [facility] Red Blood Count 4.35-6.08 Normal (applies to non-numeric results) [facility] Hemoglobin 13.0-17.5 Normal (applies to non-numeric resul ts) [facility] Hematocrit 37.7-51.0 Normal (applies to non-numeric resul ts) [facility] Mean Corpuscular Volume 80-94 Normal (applies to non- numeric results) [facility] Mean Corpuscular Hemoglobin 27.0-33.0 Normal (appli es to non-numeric results) [facility] Mean Corpuscular HGB Conc 32.0-36.0 Normal (applies to no n-numeric results) [facility] Red Cell Distribution Width 11.5-14.5 Normal (appli es to non-numeric results) [facility] Platelet Count 310 X10 3/uL 130-450 Normal (applies to non-numeric results) [facility] Mean Platelet Volume 9.6-13.1 Below low normal [facility] Imm Grans% (AUTO) 0 % 0-2 Normal (applies to non-numeri c results) [facility] Neutrophils % (AUTO) 40 % 40-75 Normal (applies to non-num jean-claude results) [facility] Lymphocytes % (AUTO) 48 % 21-46 Above high normal [facility] Monocytes % (AUTO) 8 % 5-12 Normal (applies to non-numer ic results) [facility] Eosinophils % (AUTO) 3 % 1-5 Normal (applies to non-num jean-claude results) [facility] Basophils % (AUTO) 1 % 0-1 Normal (applies to non-numer ic results) [facility] Imm Grans# (AUTO) 0.00-0.50 Normal (applies to non-numeri c results) [facility] Neutrophils # (AUTO) 1.5-8.1 Normal (applies to non-num jean-claude results) [facility] Lymphocytes # (AUTO) 1.0-3.1 Above high normal [facility] Monocytes # (AUTO) 0.2-1.3 Normal (applies to non-numer ic results) [facility] Eosinophils# (AUTO) 0.0-0.5 Normal (applies to non-nume aline results) [facility] Basophils # (AUTO) 0.00-0.10 Normal (applies to non-numer ic results) [facility] ID Date Data Source [id number] 07/26/2019 08:10:00 AM [facility] Name Value Range Interpretation Code Description Data Hedy rce(s) Supporting Document(s) Discharge Summary [facility] CZTURt8qDkBNDvLm48/FMPfhYSXpq9VjBOpuTKx5BAbiWNDpA5HkNCM7mH7oIKT1LGcBGfHwAsObIbLf [facility] [file] ICAgICAgICAgICAgICAgICAgICAgICAgICAgICAgIC AgICAgICAgICAgICAgICAgICAgICAgICAgICAgICAgICAgICAgDQogICAgICAgICAgICAgICAgICAgIC AgICAgICAgICAgICAgICAgICAgICAgICAgICAgICAgICAgICAgICAgICAgICAgICAgICAgICAgICAgIC AgICAgICAgICAgICAgICAgICAgDQogICAgICAgICAg ICAgICAgICAgICAgICAgICAgICAgICAgICAgICAgICAgICAgICAgICAgICAgICAgICAgICAgICAgICAg ICAgICAgICAgICAgICAgICAgICAgICAgICAgICAgDQogICAgICAgICAgICAgICAgICAgICAgICAgICAg ICAgICAgICAgICAgICAgICAgICAgICAgICAgICAgIC AgICAgICAgICAgICAgICAgICAgICAgICAgICAgICAgICAgICAgICAgDQogICAgICAgICAgICAgICAgIC AgICAgICAgICAgICAgICAgICAgICAgICAgICAgICAgICAgICAgICAgICAgICAgICAgICAgICAgICAgIC AgICAgICAgICAgICAgICAgICAgICAgDQogICAgICAg ICAgICAgICAgICAgICAgICAgICAgICAgICAgICAgICAgICAgICAgICAgICAgICAgICAgICAgICAgICAg ICAgICAgICAgICAgICAgICAgICAgICAgICAgICAgICAgDQogICAgICAgICAgICAgICAgICAgICAgICAg ICAgICAgICAgICAgICAgICAgICAgICAgICAgICAgIC AgICAgICAgICAgICAgICAgICAgICAgICAgICAgICAgICAgICAgICAgICAgDQogICAgICAgICAgICAgIC AgICAgICAgICAgICAgICAgICAgICAgICAgICAgICAgICAgICAgICAgICAgICAgICAgICAgICAgICAgIC AgICAgICAgICAgICAgICAgICAgICAgICAgDQogICAg ICAgICAgICAgICAgICAgICAgICAgICAgICAgICAgICAgICAgICAgICAgICAgICAgICAgICAgICAgICAg ICAgICAgICAgICAgICAgICAgICAgICAgICAgICAgICAgICAgDQogICAgICAgICAgICAgICAgICAgICAg ICAgICAgICAgICAgICAgICAgICAgICAgICAgICAgIC ToVBZbQFIfNYWlGZHiJWAgVWThDDSrBOYfNYUxUZWdFYHuZABrUOYiDXYwOXAhUDo9X6ksHESzLYUqKF 1xNZh7Nh0+ZZvGPrAyYOK1vnJgoX9HHG3hv6TvMMntELWpc2DxVWx5IH8JXZPdHMagBC8YVJxonb1EOO EtHLCksAEJr2rbEgJzOEG6KFAvGeokFR9EOTAoV0su vfCoQVCgCTVXIUwrHQKOUMwkIDBCZSVcVERtLdYoCbOtQZSgPKVeWPCAJZD1ZKSgCrOdTVEtJRGaTgPe MWVMUSFjSMLcAaObFKodZF8Qz2XzfBZxMG8AWf9SRcTjYN3bir2CKETxCTWuOrmOMho0JHxeGA3BbREp gVR5UqOdADUQLaBxC6doj7DbQBimFXPKUVbhDY4Ea2 VudCAxDQo+Oc4WCI3lt8LlWZq6SuOnVZ1nqm9KYIbHDoToF8RbmQsjNTNsp5UqOKSuVISWfN6lXDH2AM A3YMOfAXzvDYPpUsUmpISfOK8DIUE9BZPiSv0qDDHtZVU2XhD5NNVVNO8BRFTyDEKsjJAzUSIhEGXAQY 8YEZxhAUO3LHKmjsUynYFdWKkhFS9LITMyxuLdTNRt MCBSDQo+Hw1EOH2sy3GzNRg6VAEzRP6gkn4STHlUEzEdM4Y4nQVoP4T4MCeeYt8LSQWfWYQqAFCmULZT AKasAP0FSU5sxuK6SA6SuVRlZBPyGBIwxJIlVKc6T57ryBTnMLgwHY1EDFQ+Lambert+Ss7FALTpOBCnKHNz PlViKLHOJeBdN8DkD6SAx4JoK8MiXE12bLeccaExDA mkJX3LJJ8hKYOlPMLJLI6QzRVhgD4hibG3DcVjQFMQOhOdX47odGZpAGWsVDH1XYIcWz3ESDViE9Ssxd IrlFrqboAyNRBiPFKNBJ4LUVzxruGwnPUgwXcsSH74hVniSB7PBr6QMvSqMC1imk5IpPClMm0JHKF4FN 5REEUxNAFkITTvXOD7XBPwJmSfLQhvGZCbMLBaYJM1 GTHiJBZvEP7ATyBaNSRnZkH8UDQoNVCnWPPsku0LABOnJZI3DCcwKUBvWSOhCLJxENkaBIVnEMCnQVX6 TYXjRPAcAL2MAmYmNMGcXSGpOtWfVEDzFTAhyq6LJHQcEYFjKGD7RjBfQTFqQAFdLKtnSWDyBYM6YrM2 WHJvFTHiBM7QQoOlTRCoDRh4GRosYZEjGZFvrj2KGF VlAXKvGnR7FqSkDNCiELGcBOipUCSnUNTgXQCeBJCgOZWgLD7OBiJlSQWyYVvmDVLmOADsWXOwzp2VRT GzSSXwLlN7JLOyWUCaFAHrDUxqKNNyCNGaOsJ8MRJnTRPgLE0DWiZbDADbQdG2RiNgXJDzPTDlbr1EDB FtJBZlJdR7GQCyRFKkKOGxRMslJHBsWUNwVFY2BJVu OAQrEJ1PQpUqIUEeCzQ9JvZgJPTqRHZyqw1TDQKyMTCbQdb0FvEwEHVxKNYfPFvwGYIvTSQhTiPnDXCf XCKkLG4UDcEvOVXeEaN1KxLhKQQhCOLxap5JHSPiAAXcMYwsIXXdHBGqBYQlDByvOTAtIOG6WXW5DARa ANGiZA2ARbVjWXEgThu9ERHpHFAlDPAnce4JOMYuMQ TrSxi3QXHyZWBaGHKyZNbhZXRqIZV9DGD9IYFbDSXmLH4OLyUzJSNrQqhnGZQrAWIqLEEcbf5VOUQlCE FbRZI8QKBhJSHdHKVjZWklLHUeQEGeVlG7YUEzTBVoPO5JGiEhWZOcHNM2BaRgSXTqATBevr4ADHUqFK S7HPA9CYWlKOHeXYMiIFqpIICbXEUuIyH9RWKoKVNf GM6BNpOgGALrJCH3HGSsCXEkKXSugo6FUKYwNFO1WEh7WVPcCXIyLSRkSWxaTKRoQKqjYEU6JRRdYFRf MG4YIqDaPFSnEwKmNaufNMKsERMchi3ALJHmRQK6HmB3UBRcUMSaGWZdBOzpJSVcEIu0JOO9CDEzGQAn NS9CVkSrAQYoLdHaHLGhZPEsKAKoso3OPUIhDPH3GS B5WOPvEPEpVWOgJGmoIPWnSZn1TUStGGKcZLKsMV7WDbVdFJJvLhF4XAIrWFJnSEWrxo7KMTDlHRY6Ot G3CYQyLMSmYDWySPqgJCYqSGt5YlW9USFzWYToPD5RWaQmYJMmYzO1JaJpPIYbWKNolt4FTJCeJMC7Vh M3IQKzTWRbXQGfULifKLFpIEg6IBg6KUHvJTNqUP1N DdFrSKLsIwt0QJNlXVCwQJWrag5KHBHsCPG1HVRiMFHmIMRoNDQtWZw8fiAmvRAtBAp8CI8JJ5OnyqEw LFmLMh6My973LLT0IUGhFh1PQ2wxKg3tYDIfGJTQRv9ATPc1SaLpNGRdAWSpKOk5AwOfWsFgDRIfUYQm Pcl9XcB6QcL+FCyvAON2QRN9HoR5KQTaKSHcXoYuCn VrSgRlBCFmBCZ0OY6oDLFUYx7+BLdcoABamEfqYTKUXsv8BjJ1BLjfYBQXAg2Q ID Date Data Source [id number] 07/25/2019 03:13:00 PM [facility] Name Value Range Interpretation Code Description Data Hedy rce(s) Supporting Document(s) Opiate Screen,Urine Negative Normal (applies to non-nume aline results) [facility] Amphetamine Screen,Urine Negative Normal (applies to non -numeric results) [facility] Benzodiazepines Scrn,Ur result Negative N ormal (applies to non-numeric results) [facility] Cocaine Screen,Urine Negative Normal (applies to non-num jean-claude results) [facility] Methadone Screen,Urine Negative Normal (applies to non-n umeric results) [facility] Cannabinoid Screen, Ur Negative Normal (applies to non-n umeric results) [facility] Therapeutic Drug Ranges for Emergency an d Rehabilitation Threshold Levels (ng/mL) Cocaine 300 Opiates 300 Cannabinoids 50 Barbiturates 200 Benzodiazepine 200 Methadone 300 Amphetamines 1000 Emergency toxicol ogy analytes exceeding the therapeutic threshold levels are positive. The confirmation of all positive drug levels may be confirmed at the request of the attending physician. Results are to be used for medical treatment purposes only. ID Date Data Source [id number] 07/25/2019 02:55:00 PM [facility] Name Value Range Interpretation Code Description Data Hedy rce(s) Supporting Document(s) Color,Urine Yellow [facility] pital Clarity,Urine Clear [facility] ospital Specific Garita,Urine 1.001-1.030 Normal (applies to non- numeric results) [facility] PH,Urine 5.0-8.0 Normal (applies to non-numeric resul ts) [facility] Protein,Urine Negative [facility] ospital Glucose,Urine (UA) Negative Normal (applies to non-numer ic results) [facility] Ketones,Urine Negative [facility] ospital Blood,Urine Negative Normal (applies to non-numeric resu lts) [facility] Bilirubin,Urine Negative Normal (applies to non-numeric results) [facility] Urobilinogen,Urine Norm 0.2-1 Normal (applies to non-numer ic results) [facility] Leukocyte Esterase,Urine Negative Normal (applies to non -numeric results) [facility] Nitrite,Urine Negative Normal (applies to non-numeric re sults) [facility] ID Date Data Source [id number] 07/25/2019 02:55:00 PM [facility] Name Value Range Interpretation Code Description Data Hedy rce(s) Supporting Document(s) WBC,URINE 0-2 Normal (applies to non-numeric resul ts) [facility] RBC,Urine 0-2 Normal (applies to non-numeric resul ts) [facility] Hyaline Casts,Ur None Seen Normal (applies to non-numeric results) [facility] Bacteria,Urine None Seen Normal (applies to non-numeric r esults) [facility] Epithelial Cell,Ur None-Few Normal (applies to non-numer ic results) [facility] Crystals, Urine None Seen Mann [facility] ID Date Data Source [id number] 07/25/2019 06:28:25 AM [facility] Name Value Range Interpretation Code Description Data Hedy rce(s) Supporting Document(s) Glucose [Mass/volume] in Capillary blood by Glucometer 105 mg/dL 70- 140 [facility] ID Date Data Source [id number] 07/24/2019 08:35:24 PM [facility] Name Value Range Interpretation Code Description Data Hedy rce(s) Supporting Document(s) [facility] BSVGVk4sJlWPXiKo28/EBMckZVQoi8AmEBtlOQt5RLqjHRGlX8OwCPG1jK7oVGR3BLjIOdEbZpCcMlTf lb [file] DAT[employer] 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/UD34A2jyCm865Qpz+r+roDU58JpI4s+jvM+njvt 4tmPJOKram+4uAtP+/PFTRd7V1fkVmqk/OyuisTDuLYNm3+shC9YqJS/AsxhueX8AVpXKIReVtPNulkB YunGXoKOh7JyevtIaWAxIissQLF6IGS+u7C6PGSAwnRAEXKKkvb17GZwnz2h0sZXmiolmk+k7rPvJ5WC 5//Kvk1Jb7yqHpVUq+sjgYhaLwheEJlomRZcEFxiut C6mm7577gw/qzoey2dGbkDFk6mT2Z4ouw6p92itMt9aYYtTUbPPauS4OpWIx/AH/K+lIyOsPA0qS8Cpa zIAYXt7TCLSeHFK32pZWfg3NoPPsuPabOJDAKClwf6eqhmxapNqBlNRcvkDlgKC82eIjY+Wfjx/V/hR/ jfdv4p4YKchyCaOQ4/kCvDb6ZWjfOGsnf2Beu5ho9r TE/cHXjqVIfotSUyuSgbFKq2Kgp1cH9JPVRlWkxzVwew9jO/8e719vMIngffuRARpHVygCEmslnBqf5f KpHWigVMEQLAA2JQAG+RO/a/yq4v95radIp5dgSbwHuy7Xxe3N/kX1abB5o/E8m+xy8ti9xz6mraq2Wt vlEO8902ncqfgfvDuOC00649u989igr9wy4h6A5Mq2 [file] yhDOHhLX0mJFYTTk4+ZPzhgLXpgKjkZBXVOuq8UPN3POjrSUZLDy3S ID Date Data Source [id number] 07/25/2019 02:02:39 AM [facility] Name Value Range Interpretation Code Description Data Hedy rce(s) Supporting Document(s) Glucose [Mass/volume] in Capillary blood by Glucometer 107 mg/dL 70- 140 [facility] ID Date Data Source [id number] 07/20/2019 06:54:22 AM [facility] Name Value Range Interpretation Code Description Data Hedy rce(s) Supporting Document(s) Cholesterol [Mass/volume] in Serum or Plasma 191 mg/dL <200 [facility] Triglyceride [Mass/volume] in Serum or Plasma 172 mg/dL <150 H [facility] Cholesterol in HDL [Mass/volume] in Serum or Plasma 38 mg/dL >40 L [facility] Cholesterol in LDL [Mass/volume] in Serum or Plasma by calcu lation 119 mg/dL <100 H [facility] Cholesterol in VLDL [Mass/volume] in Serum or Plasma by calc ulation 34 mg/dl 16-42 [facility] Cholesterol non HDL [Mass/volume] in Serum or Plasma 153 mg/dL <130 H [facility] ID Date Data Source [id number] 07/20/2019 06:48:22 AM [facility] Name Value Range Interpretation Code Description Data Hedy rce(s) Supporting Document(s) Hemoglobin A1c/Hemoglobin.total in Blood by HPLC 6.4 % 4.0-6.0 H [facility] (NOTE)<5.7% Average risk of diabetes (ADA)5.7-6.4% Increased risk of diabetes(ADA)>/= 6.5% Diagnostic for diabetes(ADA) Glucose mean value [Mass/volume] in Blood Estimated fr om glycated hemoglobin 137 mg/dL <126 H [facility] ID Date Data Source [id number] 07/19/2019 10:16:05 PM [facility] Name Value Range Interpretation Code Description Data Hedy rce(s) Supporting Document(s) History and Physical [facility] VOZXQn5uQuCFXuXl58/THKdhXCLfe5WfBIpoTFg7WIhjLOAlK3SrFIP2qH0eOKJ5VKzGYzOvZxWvAiW9 [facility] [file] food editor+kYIWf0/XlZaakxKVUBRzCnkyX6AuHYQV2DGn8H [file] AgICAgICAgICAgICAgICAgICAgICAgICAgICAgICAg ICAgICAgICAgICAgICAgICAgICAgICAgICAgICAgICAgICAgICAgICAgICAgICAgICAgICAgICAgICAg DQogICAgICAgICAgICAgICAgICAgICAgICAgICAgICAgICAgICAgICAgICAgICAgICAgICAgICAgICAg ICAgICAgICAgICAgICAgICAgICAgICAgICAgICAgIC AgICAgICAgICAgDQogICAgICAgICAgICAgICAgICAgICAgICAgICAgICAgICAgICAgICAgICAgICAgIC AgICAgICAgICAgICAgICAgICAgICAgICAgICAgICAgICAgICAgICAgICAgICAgICAgICAgDQogICAgIC AgICAgICAgICAgICAgICAgICAgICAgICAgICAgICAg ICAgICAgICAgICAgICAgICAgICAgICAgICAgICAgICAgICAgICAgICAgICAgICAgICAgICAgICAgICAg ICAgDQogICAgICAgICAgICAgICAgICAgICAgICAgICAgICAgICAgICAgICAgICAgICAgICAgICAgICAg ICAgICAgICAgICAgICAgICAgICAgICAgICAgICAgIC AgICAgICAgICAgICAgDQogICAgICAgICAgICAgICAgICAgICAgICAgICAgICAgICAgICAgICAgICAgIC AgICAgICAgICAgICAgICAgICAgICAgICAgICAgICAgICAgICAgICAgICAgICAgICAgICAgICAgDQogIC AgICAgICAgICAgICAgICAgICAgICAgICAgICAgICAg ICAgICAgICAgICAgICAgICAgICAgICAgICAgICAgICAgICAgICAgICAgICAgICAgICAgICAgICAgICAg ICAgICAgDQogICAgICAgICAgICAgICAgICAgICAgICAgICAgICAgICAgICAgICAgICAgICAgICAgICAg ICAgICAgICAgICAgICAgICAgICAgICAgICAgICAgIC AgICAgICAgICAgICAgICAgDQogICAgICAgICAgICAgICAgICAgICAgICAgICAgICAgICAgICAgICAgIC AgICAgICAgICAgICAgICAgICAgICAgICAgICAgICAgICAgICAgICAgICAgICAgICAgICAgICAgICAgDQ ogICAgICAgICAgICAgICAgICAgICAgICAgICAgICAg ICAgICAgICAgICAgICAgICAgICAgICAgICAgICAgICAgICAgICAgICAgICAgICAgICAgICAgICAgICAg ANCzGJVgBZCfTJz2T9xfKMLvKRGfDR7gLHb5Gu8+TDhKVfEfZAU4ruFjkU5QOD0lm4ByWLhbXKWbq8Gj FZg3LS2REBMmNHsfQX2ZZVouqu0PDOBhWSSvjVVWg9 spOrQrWGD6PLOhSayaDG0DRHUgE2evrhHoQSReDXATIIrpLVAVNBxrBUSRDQJkDJOqEpLyJaIsIYCfYH BlYNZLWVJ9BTQeQtSdNDCbMBBnBfDyBCGNZQYeNMJcUvVdVKTfHQHqLB0JLHBrQ649koQzZRGSQx3+DQ houuFcOucVEtDgYLHsh4SuDOs2AN0FJZLgLagvu1Ur FmOtPEQDKEzzKA7SQDE1JFBbLVNoEq5BEIQwO116amFdUO3UIi1DOyWmBT9xvh1OLdPeMNJhWviMPpt1 HEblQC6PiRKnCQsNMwSmIiqzEQNjmxGPiXThAFJeBP2SSDK6GDRgHxNdAlZsHENkHosoFsDSYAjFTyVy B5Zfl9CoXkM4CDDnMzRkXSzaGCDkRnS9UJ79aDweIN 2LCCQpGNCvFK19IMPnNGRxSs7VWf5VMnEuNG1jvw5RLbYqJIPrSrzLWwp5MSexFY9JoESkA7KbxUYci2 zSDyFsN7AVDSH2EQFwGh5HJKOeYnCxUSEtVPkoSK0kGRZiWEUPaQduhaG7IC4VVR9rddNzUP3DAqZhKz 8wKu1ALwBaR3MsR9RnHQBiCKHCVCoeVD8KWOanMJ0b QN5Gk7EHpCWopE0fju4XOOPeKJPnUzroak0LBbirU3U4oVreDDQaQuKzJCVEALlsJM4BGZHwBPJ2UBD9 MMYeJARFMnDgF55uSJ5RP5Yic43vSeF5YIItRoFrESlqUS46oYkgwpKkkSVxpOvbAP0YGv9+DQplbmRv WhlAVpzcUCLZHtXtPqSJQnJtFYLvSISkLAOzWiG4Hh MaAy9OIDZrYIUkWSOdFgEqMOAuEHGfXGywEEEiBSbiEzC8WZJeGCWlOM9JQoHhLPOzXMLlFQSmVIZoOS Xytg6GIGGyGGDyRED3LvTyOTPiAAAtKJpnLKRmZOY3JjL5GHOaMXSmIY5HJwDdNTXzCHA3CBylWCVtYY Qxoi9ITJHuAXExQGO1YSZtWQCdSPIuBSufVFFsWUW7 MyI1URXiABOlIB7IZxFdLXFrUIC5QdjtDBRoXWHicm6RFPYgCNBgZuJ3MbUxVEZdXBHdHUxcFBHzMEB0 BIVgGYEmZWMuZT9YVfVnIXZjFHtvVNEdNAPnLZUwjw8YIFAxAHNnQYS5IDUgDFRwUKPcNXnaZPVzSQKj MqS7KBKdFPYpPV3JUkVsGDLfTkZgCOFkLWUoEXFrwk 1OBTZuFPHiPQR5OSYiWNUpAINdQBuoYXYsDNE5SOS8XKVeUXFfIC1HAeInRDUxBjtzNJCtIHVtMPScoe 0ENJLhRTBhIvzxZLPlXPCiEMIfJVkaLGSbOIUcWQHbKTOgFLOpAA3FRsHiWEEnEms1AAJiTLZqKNLrka 3SAESyFRNlVMw3EyAlYMXyXPZiFFhfBBWvDRMwHFJ2 SIErTGFxCZ2RWkGaEGQrDDB7NDNaNDHyZVXbyq2ICRYcQPQ5ZfWdOiFdIBYvGHUoNPgiWTGoTJUyHvEq GFNfKLKzTV4BAvLqVKApWUJ8IXLxUAHiHDSgut0OYQIaLYW8AWx6GTPlHZBwUHSaOHxuCAOpJMB7QZmm TKJuJKNgVW7LPnIrBCRoHRH8CeNaAZUyQOOplj9BGW StXAS4MdHxRzGwSGBbDKEvCJabBRBiXTU2TbKvUBPtYBVwMK2EPtIaLYNdQKcrHSNdMWXhDFNavp6OVX UsXAV6LzN0TMNmIEMbYKNoXFzfKFRfWMC2PkQgHCWjKUArJH5PQeBxNKWyKCnuNUFoJPKzFWPfxb5ZHH EeHZG1DSMcIiMuAYRxPLDkDKuzZRDmDDI4OhY8EXGi RTHnUL7XSqZxCHYhFUc9SXCfDZQzCIKwjx0DVPNtSHZ2NVIjWNXyPUGrHKQjJZuzPBSbGVOsBPlnYAEr HXRgWP7FUtOeFZIcFjCeMiIpPCLjXQNpqr1YUMMeWWC3CWLbOBBcVNAdWYJtCVsxOVCrQZIeIkybLNQi WQAbHL8KZbKfZHQaSsI8HfLqQMWqKEMjqw8VFAUgTY L1McF9EIGtJDHcXSGtCEzbGJJnPWM6YVR8XVIiGAQlOJ8OUpXpMDZqRxu6LyZfVIExZLHqal7XSWMoBH F7YIQ3LtHeLGKjMIExLVheKLYhTBX1Ava7CQHzEKQaUF0KBePpPAHzVqv7FDMkDRBkBVScyg4XWQVfCM C5LJY4WaWvANLxPFPoRFgqLIViVYM1PPOtBAGjAXLh ZV3YMfZuCOMkTfinDUlbQDDsLJJfeh4XYFYwKZF1BXM0QBWoGQCnPPPsUBxdORHrKFodUwIcIRYcOBWk WG8KZhLwIBKhCSV1FLKoLHGqTFKomq3DFSOkYWB0WgT5DkEsMANmBKFhMJfxCUNyPLyiZpL2BMQeMPSq NZ4TMlAtEDDuGPQ0IWSuUOKyWHJkzn7TOJBnNEC2HY PjTJHqSXCvIPYqRDxyYLUdYTs1QsddDANuPOAtXG5DWvGkVHFbPYQ2RYmkNNVkNHJume7TcHNqwWnbct 3ZTUjKMl0ZkGumICG6LHjvPj4niDQ0NqOtBGSKGb1VogUaSEQwUEVNTFxtHNJoATS8YvAsTdVrSbQ8BF XkSJTaYEN2M9ZhOGS2HdPyDvKqWbM5VdP8ENHlDAJ0 CPS0I1LrXEO5KZj4ULJfOhH6FSFjUjC+NN9rVEb+Zm7Lp7WhegC9bzDlFKi7YVE2LJ7TRPLEF5ZKZt== ID Date Data Source [id number] 07/19/2019 09:34:15 PM EST [facility] Name Value Range Interpretation Code Description Data Hedy rce(s) Supporting Document(s) ED Provider Note [facility] TQNERg7xShBUOoNz60/BWImvAWLnd7HqTIxrNQa3TAtoBPZiV2XoXMO9jZ6lMRE4BVoKMiPxKvFjLfC7 lbm [file] ICAgICAgICAgICAgICAgICAgICAgICAgICAgICAgICAgICAgICAgICAgICAgICAgICAgICAgICAgICAg ICAgICAgICAgICAgDQogICAgICAgICAgICAgICAgIC AgICAgICAgICAgICAgICAgICAgICAgICAgICAgICAgICAgICAgICAgICAgICAgICAgICAgICAgICAgIC AgICAgICAgICAgICAgICAgICAgICAgDQogICAgICAgICAgICAgICAgICAgICAgICAgICAgICAgICAgIC AgICAgICAgICAgICAgICAgICAgICAgICAgICAgICAg ICAgICAgICAgICAgICAgICAgICAgICAgICAgICAgICAgDQogICAgICAgICAgICAgICAgICAgICAgICAg ICAgICAgICAgICAgICAgICAgICAgICAgICAgICAgICAgICAgICAgICAgICAgICAgICAgICAgICAgICAg ICAgICAgICAgICAgICAgDQogICAgICAgICAgICAgIC AgICAgICAgICAgICAgICAgICAgICAgICAgICAgICAgICAgICAgICAgICAgICAgICAgICAgICAgICAgIC AgICAgICAgICAgICAgICAgICAgICAgICAgDQogICAgICAgICAgICAgICAgICAgICAgICAgICAgICAgIC AgICAgICAgICAgICAgICAgICAgICAgICAgICAgICAg ICAgICAgICAgICAgICAgICAgICAgICAgICAgICAgICAgICAgDQogICAgICAgICAgICAgICAgICAgICAg ICAgICAgICAgICAgICAgICAgICAgICAgICAgICAgICAgICAgICAgICAgICAgICAgICAgICAgICAgICAg ICAgICAgICAgICAgICAgICAgDQogICAgICAgICAgIC AgICAgICAgICAgICAgICAgICAgICAgICAgICAgICAgICAgICAgICAgICAgICAgICAgICAgICAgICAgIC AgICAgICAgICAgICAgICAgICAgICAgICAgICAgDQogICAgICAgICAgICAgICAgICAgICAgICAgICAgIC AgICAgICAgICAgICAgICAgICAgICAgICAgICAgICAg ICAgICAgICAgICAgICAgICAgICAgICAgICAgICAgICAgICAgICAgDQogICAgICAgICAgICAgICAgICAg ICAgICAgICAgICAgICAgICAgICAgICAgICAgICAgICAgICAgICAgICAgICAgICAgICAgICAgICAgICAg CXQoCTNlFIOvSWRySAHfTJJjNMOyLIr3F7lzBLKyVB AeXD6eZDj2Oy2+QBlSNcEmQBX3kvFlmD7JJY1zf7FbHVvlQYJsr9AxHEg4NI8OJNKoEGhdZC3EHDqerf 3UQYJoMOXbpUNOm7ivZaFtTEB8NDRlGqruNH6APWTuY4ssbxWgQXSgYRCBAQajVHHAPNtoMMMCMGRfUQ XnCiXrLqCkDSOuDTJgJJBZBTV9JDEpKsTpBCobPU1J f4EswOC5BCx+Tn7OBC6zo2BpJNqzGzRwYL0gkj3QKYbRMrSqM5MrjfM3TRI4DOLrYu2JZVBuSDNrwKT4 HdHvZRLQRkYnB4QbtK20QNQEZh4+QZgwmzZiZrzUTyF6IPItk1FwHZx2QU3PMIWvGSo6sKBvEUAtIPOd gqlbPOAjAl35MZSiGfjsVpedeLmaA0ogyLqlATNKRO E1DGJzSnSzVwIrKXVpZpciTcDSHWvBXiLwG7Fwe3IgGfT5DDNaBpCoIJauXGHrDwVkNF42wPoaGB3FPQ QmMSBbAV94AAU4GDSbBe9VMYUpQcT7oXOeLIGoILERPp5+BUqkomGnWrfAJhX0KQFeq3DdWTk8DQ3MTS VgKWw2hBLhMRFgZGDriarxXHCcJq71NBIzXgqjLqld xOssT2hdtYqiUYSPSXB4PQThLrGvXcNdRQDoYnrlXaHNCTdFVsGfP5Cgm0RzEnM7ONVlFeWcCLqaJKDc THWydyPmcULqQQzfTU5ONLEauqHsVbmaXDCDMKyyDX2BefS9QPB2GUTlHu2BLINhKeT9wAR5HVAbSPZT Cj4+GZmfyqApRxmLDlQxUYAdh1BlDFi0CA7SVCAvAC t3zACjJOIyFZAeowzzVNUiLf55RHWlPoqlBbDgDQQdFBQLZTYwgc90SPKETLDjdRFkJsPvLeFwHzYyIU P7ZcLsXQ4jGCszKN3ZWXA8GCxfKxPpYGAuV4qAIkWnBKA0NIBkpCkpQO8MPfOuM6VqhyDhaKWeZxWeAM QQElThB9YgNARlWhekYQEIFMfkRM4UIIf1JBYvXLOd Qv3XEp8UVxIhTW6vay9VKWHoUSSdShtJYpr8DSvmFM4SxUPdTUcTCONWi7TtqfZbfHOTWZaoWF3uHHCE LMKfSHVvCAQKJmCbnOUfPkEqSaEcUfTlHBo3CjIwLR8yMLdfPE4FVMS5RPiyACMpIBFMEB4BNXamZUBf IBcewwTkuIAzSLqmAL6NJTHurpWtQxvsHUPULJlwDQ 0OreD2FUVqTAGhFm2VTZYqJxV9wSG7UtJwYPQPLm3+HYiywgQvLdqBQdOnGDJzg8PbTKr3LH9GLGBlCK p2pVAqASGuPo35DPAnSsxoWFMrcj8gQHdtKEDoGYVIKGG4JRXqOkTjTxWaDIIeJle7HzPLPRqUBhZyW7 Pao6PhZvNqRXGhUFQsK3vAYzHyUGPiBuSibVodPO3H XwYuC2SjwtNcqXLjXjHzHVQVVjHnP3IePEHdARPnKKIHCRvrTK9TZWd0EUKiGGOgRc5TWf8EXgVcMS6l kf3UYANwYTDoFcfMYpr1OKzdTU0HrOPlVVoUHHBRw1VffmPzgUSWc1XctNkzYgOmPA06KPkjUKUFDXJ3 IWViDaLpNyNfFZGuUDvnUPCAHWrIIsSiX0Hnd0ZzGc IzYYMbCWIcW6pMRoKcLSi0IW42yRsgHN9TJBGcSBHsOW95FHU3GHXgAu7ABXRwVUVqhbP3KdJgTCPVMr 4+COiwweYrTjhVDjQ6UUKfp0NkDPl9AA3ASHVyUEuxHS6UBTKpdK9zWZhmYD6BKzPpRMCeZDNSIzPnU6 3zxKPkJGg1D2XrPsCwYHJvYzbyNOAyTGduVwJhIWHo WyBdDQogID4+ID4+QRwkTD9JOAyzdnQyGPCrFe8EWIHyJEEvOL8mCFBhWWPgV0K7iPtuGVHUNoYmP1is hxslLV6bSIFqO862pMxciiUbQAS4LLOjYw5FOEVaCSK8NYMzfTNvQbHnROHYFGwvRB9BnPRjABB4kD4g DLugWOMcQLGjC5dXYmMdxUteJD62oAeepbKvjCAnFX o+Iy2OYN7ri3CmBLt1dlEyDVjpEUB8BCcpLXPvAQFtBFEvKSC1YPK0MJYPYgQjLFLzNJTpIWsxKPErJC Tlfq0APZAzKCKgJtHqKlXeGEUrIEKxGZsqHVCdWIN3AqUjKDTzKIRkIC0UNtJxIAZvUPFgBDflPRGuEI Qscp0HPNYhKTTbHiK8MMUeYYIcLPLiTCbgCUEuJMLz WwqiIALdSEKsFG3CZkEyMJXoPFLnQmshONLbIDJkat1XVUJgTADjWbEwRYQcDUAzQPPxRBpqVDKuDWM8 XZB7ICRrZPFqCJ2KXaFoNOYbPSupFVirNDTrSRFjtj5KLQXnRWTkTFZ8QdHnIVGtHRByPXgnLTNdYWId AcmaRWAbJEIwII5EBzGnNUMrNCL2WvOsEPXeBVSzsd 5BGHWcOEHmYDReFCItACUvRZIrFVdlUEGcILJ6WsqaDJXyDNXwDP8KSaUtSZBtZIp1EZnjPREhLKIgff 5KCTHrMVRqDAT6RLIqATHtIELhGZaePVXxXGZ0HXbrHYYvFTVlWT1IKfRdULOuPBh7XHRwCRCnQSXlbz 3XVHXbKIZdIVI9OFNkTQTzMQSoJXppWOVmIRFwUrDh KDObGTLtNY3BAxCiAIOhZfMbJOHzTFXbBOUeiv3LJXUgLNBqBGZ8RoPmNRMkWWYiRScjNIArLFCtTHei UXXlMZAyZO8SLjZjPPQqFaF4KDVuEJIkICOqre9SPDHjDZMnVpjaZsFzKDDgEZZjUXmxIXMqHJWcSDMx BEYkLKFfLC0ILdEgAGDhGgIpXPAiXALrZWKnld6KWG OtOLFmOID3GBBuNWPeJHRaEVpkPTWcQPT5FDv0VEFxDGMqSS6VXrPcNLPgGwCsRhIhKZQjCHPkjy4SBK BcGZYrWRX2ZQWsJZMbHVElYAxeDTKwHEJ0ByS0LOMjJKScEH7CVcQcLTZvVjR8MTFlETCtRVCcoa9QQS MoYVMhVeJ9RSDpBEYeDKPhOEcuSBWcRJC2ALRtRYBv GRJmTO0JKwKjEZYgXgu6VMMiPVAeOJRrqi0PLFAyDNEpSQT4TpPhQEHoSHOlDYnfWLCxDBP5YhC6IVJw YOSuPI0MWdGaBJAeEco5UFocBVWeODVcfd0MRWAlDNXePUDnTyVkTYYpAOHvIItaXSEvLWN6CdzpEIAy PKDlHL2XQcHaYCPoQgl0HNFpZYMiMHFhky6AHFTfWZ DoSNZbCoTuWANdWYCjENw5ieZfvUVbRWs8BJ0OU7OfvsLzJYUWSe1Fh960PZW7GESvJh0XD4bhVn5mCG HnNWETKu5GUMr7FEMzNlE7LWYjCKOaNZMzNqXlNrOxMjRfV6GlVrc3ZTi+VCxwBlDtJcs3MQXbOXJwHZ ZfB8XbAKG5OVOcBAYjEwRzOM1dOKZBUr1+IIeutMWaaQgmAVMCXzZ9XZQ0UZcuJTMZOo4V ID Date Data Source [id number] 07/19/2019 09:42:17 AM EST [facility] Name Value Range Interpretation Code Description Data Hedy rce(s) Supporting Document(s) Progress Note [facility] JZTXDh4jSiEUAdAi52/HIOqjMXQbg3WzMTxpNDa6YNtrQCMjK0GmYLS3lJ8tIMF7AHfOYhIuNvBjCdF9 m [file] ZjI+RD7sJXs+Aa5Yw1TbyqB6xuTmYZq8MbjjFWqeTMFEXx8P ID Date Data Source [id number] 07/18/2019 08:28:15 PM [facility] Name Value Range Interpretation Code Description Data Hedy rce(s) Supporting Document(s) Consultation [facility] JIRETe1zZdRFIzTn93/QQOtaDDBla8MdHJttRIu0HCyjXYYuY6KbKZS4hH8uPFQ3FJpDNhRyOyLlTwM3 lbm [file] nuf++fQgGFIdtKf7hK7uzp+dXnl//IC7mj4ce3bhZ6xM12+bW7f3l+senior credit analyst/vkk97ldf1hz7a+n555f9+c [file] AyMDUyMiAwMDAwMCBuDQowMDAwMDIxNDgyIDAwMDAw KZ1OWzYxLSJvClD6FnbqIWTaHDWarz7ARKWbEXLoCCx8FwXcRAMiXOAuYChuXPUlRAWhQEZhFAWpRESu RS4RKpHbVKVaLzLfTmLkZXQqQRLtaj6PTVPbCSQiObAbTTEqMLNsCSEkRBvdJLIkVOG3JAapZYTgGDJd SZ3RVfJdNLAlGbVhFdDfLDYzLHKrui7GAVRoSHQrMR Z7CIFzHGRwGZXyJZsbSINtEMQ9BVQrMCDdFVFnTA7YRrHtWJCsQjU1ONulMIOpAFAmjy8PMLEjPQGsQS xsGTXwPPMeRVTzVZogNBDwOGA6ECV0YCOkJFWuRN7PLnDhWUQvCgxhWxNqIZAvVSUuyy2GPKOzXYXzWm T8BuLxNHSmETAzRIedROYhFAD7ReVrTPYzZKBhZB8V OwByHNUyYse8WSlkHQSfMEPqcy7ZGDRvTYJvAYQ0RKWiEXHwJSSeHLqeFAIuPYG8GEW9DURfZXPfEU4Y PwMlAQMvFac1IUDnTPYhRQXwsr0ILKGtXTF9XCS0GwEfAAKkVZTfMWdzFLGrKITaCqx4TENcLLVgIT0S HoPaIANkOJO0IbYlOXFmZLQsll6AVTSiVAJ9ZBTjUH RaMXXbKEIhCDvyKGIwNBPiWom4PWUgSCFnUP2TFeFjTUVeTUG3WbXwZGTbPFVbna4YRBMjALC8SqStCA IoVASrDFLyXAd1gmRymODjNVq5LC3WC0AdjqCkHSJUSk6Kf216AKIxAFGzIq7QS5lcTa0xGYPwHFWSNd 9MRHe7R7W6ECP4X6QrLGfbVYJoCDZmPUJ4HAQ1EgN1 DeD0QeT+GJn6AJVuSfGhU9V4EJB7CKDmUtKoZkH2XmvlNYphCRW1AV0aWAYYEx1+DQpzdGFydHhyZWYN VuZvSvL9CZlgQNAZAu8A ID Date Data Source [id number] 07/22/2019 08:06:11 PM EST [facility] Name Value Range Interpretation Code Description Data Hedy rce(s) Supporting Document(s) 9-Hydroxyrisperidone [Mass/volume] in Serum or Plasma 30.0 ng/mL 20-6 0 [facility] (NOTE)This test was developed and its pe rformance characteristicsdetermined by [facility]. It has not been cleared or approvedby the Food and Drug Administration.Performed At: [employer] [address] [id number] Karla J PhrGA Ph:[phone] ID Date Data Source [id number] 07/18/2019 10:27:08 AM EST [facility] Name Value Range Interpretation Code Description Data Hedy rce(s) Supporting Document(s) ED Provider Note [facility] SCBCHn8cWgURMrVq42/DSBoqIIKkr6DaKZkxAOn6MNlvFMWcM2SmXMB9zE1qONE9KQzBSaJbVqFePnG9 lbm [file] IsUTsuMS9XHHB+Lambert+Je5XMRRrCRXuWFBvTpMhUITWHqRbP9GnJ1VQv3UhM2WpHG72tYfsazYhPIilJD 5POG4vEXRkKJPPOS1QgILtkX2wjmN8ABSkWQECFnUf G80ghRGmZLGjFWCnQSVkNa7JTSJfO1HoauKjlKkvtwCcYTCoYXUOUH1ZBRcdbaWndDOrjGkfBN30uOnt PG1WGb0VKqRcYR9oqu0OcLHlRv2HHAK3UN6AIBOhKEYxJYAbFBM3PQIyDiUhQDllTQXoEKLuYJN9YVGn JBRkIF7ZClBxWQNyWXI7UoBtCFCzCXRdwz1ZVQTkUV L7LQCzORVfLICvYRXmVAgdREVsEXUcNMH6VOWmCZGtBG3WXnMhPTSnBGV8TPNlGRKyOIPpap9SZIClEK EfMhQ1DsOsSDYvPIDdOIlhXGXqCJH1HcW1RELeALGqBR7JBtNvDYIsBLH0KrmjXBYzZJYhtn7AEMVqDC EvTMHsScRuXXQyTARqPIclMFPaSXH3KKNhECTeAVCi NO1HKjOzYVOjSXB5IVjlPIKjKKGvoq5CJQWvNMMwCPn1VDQzBRAqUJCxXNpjJPJnXDN3NvX9EOMaUSRl YC7YTiBaEMFsUFK5JLHjLZTjRDFgxs3CCTInSTXjVnBsUDTdUOUiXPZvYFhoWKSlDKW0GuI4USGjVWUk YE4KYcJtGKExFWcxSDDcUENhIXYsau9YPXQjCDWcMS F5GHSyKWYcFXUwJFipSOIoTKLmNGK3TFHeURLtRN4YDuBoQFXmMdTaZASpFDHoYRDjxa9ZRVGiZUWoPL s6GkCcISHcJMIqAGxeWVJrQHJ2HSGnZJNgCTMwAV4NUvLxXJDlHccpZSSzTCMdXLFwor8OEXSmUKKjVq HlWTJlUCHuOBWvJVamDWOtUBA8DlusMHFcPCDcQI9U PhRiVHHiCanfGLFxHEBaSGLwpu1MXWDzCVAhATM3PjIiCPFnJPBqDKbnENXsAAB5SzVkPILdJKKsZR6J PjZxFPArRze7XEIsQITbIEUytf1RAOAsQHEnWRx7GSPdUPUkEQYdMPpfYVYeBZVkYChpXFJpEIPdHV2A RaBuIQRmFKP1CEPlZWIgWXFqce5UOLExRWA2CEuvAx LsHKXyBAHiZSogTJCbPQFeVMV5DIJpMCVlWN5OHjKgWKRqYHSvMWAtBEEhKMAnoe7ENIMsSVK3ZiT6HW JzWMMkTAUoSPgkWGFxHPDeRgg7RMZjLMSvDG4OXpGzEZEtDWY4EnHsRNYtRFTurh4LROBsBYB3Kqk4LV FxTBTkVNUiUEafMTKsQCG7JCg7LKTvSDZmAK4TPtQj YHPsTKG7UoJlIXKgMOVtgy9SIABbLEJ6WSa2UzBtXUKrHVEhTNokLTEnEKY9HDC5HPVpRTSkTY3HSfGp LKHjHEOuOSIyBNXmTPZqsd1HRDUsIRS6JwS8DQLcBAXkONMnRMejUZXfWRU3XJOoYMUsWKYiRS0OCfIu PYJlCPX2BoUpISAvJETles1YBDSeWST0Dfy6JpHrEZ WvXQToXJa7heLdbAHrCIr5YD5GS5QkfsXeNAbRZm7Cb088KBI2DMFxXy2KT7azPa6eXTXyYUKCWx8ZWL p1ITKuYBPvBHDnAjVyXIEgGHz5III7EKOhW7JzSvA4EgH+DNp1ZxElGzRvAgYkQCFiVTZyAmHoCBNeIO SoDCR9NHEuRY9wZXNBIf3+TKurrUCapHtdBQWCDrV1JTXpFThjWNRDXn7Y ID Date Data Source [id number] 07/15/2019 06:53:52 PM [facility] Name Value Range Interpretation Code Description Data Hedy rce(s) Supporting Document(s) Progress Note [facility] WIKRGp1hWfNDKpRh09/YFOsjDZMjs4JgYSgcMBe0THnaHIJoC0VvYOA5dD0xEFK4UDvWDwKwGtEpMbDx lbm [file] I5Grjrmd/pvS+DC49H/Y+nj0C0woJa8lH3bnct5ft7PFzh1ky1QjnZpO/0q6+[place]/nVZRr6bd9+Ilw8S [file] VPRg0K ID Date Data Source [id number] 07/15/2019 06:08:36 PM EST [facility] Name Value Range Interpretation Code Description Data Hedy rce(s) Supporting Document(s) Discharge Summary [facility] TFGDQr8kZtBRIxMz97/JBBybOQDsy7GgKKekJBf2QLirOOVvR8BsBPY3iW2wRGN1BSyPHuGgRbTuCrZi lbm [file] 4gxniNkz6MMdBS2XBtsJtjoP9kGWs9iQxzxM5cnyV8G9/Ict Help Desk Officer+KE81tonYYsRa+Iln83kQsEEvkpQj30U [file] YgMCBSDQogICAgICAvRjEgMTkgMCBSDQogICAgICAv YzDtHjRgLMJSEIgjPMUaMIBwTaCyHhYdPALDCUrqDJIyFDEtUmKrKnhjHOHHIt2TYpWbTEDzPF4ultAh nTF7KDT+Ug1VHAMuXR8WzHTRR6CdbECoAPjjE6PEHB3WEEP4IG0ZfKXqRE4DkXEXA9DswZJbTg3zBJZl y8YcSt5cW7ZHFGLEZKAuRSqlVUebWNJjIGm9B5X5ME NpX1RTA521yNFarUk0Ry5fW8QDXMzHPvBhUHqaMQzvIRGyHUy5B7I8JIQcI8NSO9DaErImptGgC4V+Pi KwFPITUQ4FCYVWNSp2Z0A6lKOfB6Z6cIpVeMS3OI8RVB6KoLGmpRUbr01+IrFNTnWiLKHsM0URQZPKAa GkITvfXGdsGITgGYt5M8G2PNIsY0FSA4bxO3o3WA8+ BpRYPwZgMSChTx2TYvLoPq0APtOgHL4cah4QIgXqEFHyDfkRMhj9I5zsdpn6hZFbWiC7K2O2KoM2wXIs DP6UC0T5hRGtGEZ3QGDhiIG+Tv0Gi8IqPJWoGHe6I8rjYVQpQKAaPxHowU10Q++0vedvuJU1C9d2XRCF nDIgeLeZjoRlK9xXQXI1g1O3NOf/Zq2VAAC2aWc9nR BiLIJlAPb5lH9ffQw2NnGaTN43NLDaNCuggZ1jDwj4S1Oqs3IzLv0cUw9qqTLmNw4MUgMaHTF7cyEhZz LVNcK2hOwhmuvuDOR8L6c0ySC5Dd67u1mkqqJgx1WgElI2SCiuETWwEzAiydReKPE6ndFzhK0robDsTn 0ZXFIbDKojsdTcLzEJCh7MSqIvNC88JnalpI9flCT+ DQogICAgICAgICAgICAgICAgICAgICAgICAgICAgICAgICAgICAgICAgICAgICAgICAgICAgICAgICAg ICAgICAgICAgICAgICAgICAgICAgICAgICAgICAgICAgICAgICAgICAgDQogICAgICAgICAgICAgICAg ICAgICAgICAgICAgICAgICAgICAgICAgICAgICAgIC AgICAgICAgICAgICAgICAgICAgICAgICAgICAgICAgICAgICAgICAgICAgICAgICAgICAgDQogICAgIC AgICAgICAgICAgICAgICAgICAgICAgICAgICAgICAgICAgICAgICAgICAgICAgICAgICAgICAgICAgIC AgICAgICAgICAgICAgICAgICAgICAgICAgICAgICAg ICAgDQogICAgICAgICAgICAgICAgICAgICAgICAgICAgICAgICAgICAgICAgICAgICAgICAgICAgICAg ICAgICAgICAgICAgICAgICAgICAgICAgICAgICAgICAgICAgICAgICAgICAgDQogICAgICAgICAgICAg ICAgICAgICAgICAgICAgICAgICAgICAgICAgICAgIC AgICAgICAgICAgICAgICAgICAgICAgICAgICAgICAgICAgICAgICAgICAgICAgICAgICAgICAgDQogIC AgICAgICAgICAgICAgICAgICAgICAgICAgICAgICAgICAgICAgICAgICAgICAgICAgICAgICAgICAgIC AgICAgICAgICAgICAgICAgICAgICAgICAgICAgICAg ICAgICAgDQogICAgICAgICAgICAgICAgICAgICAgICAgICAgICAgICAgICAgICAgICAgICAgICAgICAg ICAgICAgICAgICAgICAgICAgICAgICAgICAgICAgICAgICAgICAgICAgICAgICAgDQogICAgICAgICAg ICAgICAgICAgICAgICAgICAgICAgICAgICAgICAgIC AgICAgICAgICAgICAgICAgICAgICAgICAgICAgICAgICAgICAgICAgICAgICAgICAgICAgICAgICAgDQ ogICAgICAgICAgICAgICAgICAgICAgICAgICAgICAgICAgICAgICAgICAgICAgICAgICAgICAgICAgIC AgICAgICAgICAgICAgICAgICAgICAgICAgICAgICAg ICAgICAgICAgDQogICAgICAgICAgICAgICAgICAgICAgICAgICAgICAgICAgICAgICAgICAgICAgICAg FDSrERSgMRRnTANsZVWdNBIqRVGrRLWtVSPwKEPhFOOgOYUcWGGqQUEoODKwXUYtKTLzQXh3X7xeWIIp MSMgTU9qIBo4Kb5+DEcLWzYcADJ2pkNbnI7JGZ6et3 JcXVhxPBCki2NjJZb1HC8DHGTeWTzgSN3DXOmjtm7BMIGpADTjpJAAe0ltXhItZYA6JQDjZvqdUL0KCZ BcL2gjusXvAHZsLKRUDMdwFMTXHVfiBUUBBIPmNAZeUvVzJhFzKLFwEH7CJCZsB797jbKqRT1YKg9EEf NaKP4mrg0CRkMdIKHjCtaTIdb1LQlpRV8WwSDlpDJw RsIkGSTZOcXeU1ddv6WnSaYlOJSNGOcmXC3Ed7AwgQTmNZk+Gg2UYR5lg2YxZJovSoOmIE3edu1QLVdA GiTbT4GsxGazRMMgk2RdGLCvHYNEnO1nIIF5YUO9GBFpF0kmfZMJXHZzjEGyWLJuLKRFTLZkdOKxBqMd YySeCfKrQXD0TSYvQX8mTSbkPZ2KRXP5LGspHZJsKI QvT0tMNpTwLQTgYmOazSpdTC5VOaDoZ6XhgyOicZCiSBSsAXBABa5+JDktuqTlPuxNXlNnHMVbg4DcIM u5QK3VCBQyRLhvLT5ZJGVzzI7pJAnyGO9UOrEbUVRzCWPRYnJzZ07opIYgUVb0X3MzQaHiXQHhFjiwUN MgPDwvTmFtZXMgWyBdDQogID4+ID4+BWruSI8DIPhv rzCoLELvAo6VJTVmNQVoIG4nDDPuBZYyN7T3vRlkIMBDYhZwQ5fmnxfrGH2dVBBgH582sYkrguXnGXCv AHHuWk3RUMXiSCY8FHStiWOzSqUpESRHMOneWF7DaLEpNLU3tH4rZWacVYHnNIXsI9xPWlDpbKfrYP16 bGwgbnVsbCBdDQo+Th7MVM6st3YcTPg6dkDfCDjcQL L7LHojLFOjUESfQUEiXZR6CSO3UYTBNvZpBUEqCEQqOIbtHGNmEXImkn0DSABzIPJkMpL2QTQePAMwTG NjUYkqJYMaFCI9XkS2FUZwJOAxXF2THzRlYRFjJZKnXVnaIFLnSFHndh0FNCYbALMbYhm8VTAnJXIbYJ SwXXfoDDSoJPGsZLt0NGKmJBJmKF1NChPtZYWkFQq4 VnHbLMNeMJObvr8DEHCrPPHnBai9QdRcMPJzBAVoNOmyASRgAZTnPpE7LUXlEZXwSQ1JKtBhIQBrVTI8 PRVhVBQdJOUkyo6ILNPaCXVjTtmbZmBvCKEsMQApKPyeVXUxYPY9RPRyHXPpMYJjNV1UHfNjYRNmLSs3 UFhpPUZiRWVlpb0NFRRdRFSaTRicZzDxFTSjRJSpQP zeSUHeMJDpOrSkWMBdLPUxBP1WRpGyLTUiOmO5CyZgZOEqNTPbbo9PYBKxQPVwMRC3IxBkURXdNCNmUJ zrJOHqHXIuUSNwQXYzTAAcBI3XUfYcUYIdTcKwEKDgLUVkLRJmjp0REEQjHIRbKkA9XzQwVWExPRWcFB iiUKRiRYSsSOWcNTCrFOXeWP2HBmHmQPFlVrR4QMHw ZAKqAKBoxw3OAWYtEPQuCyu2HOMaZIMuUEZxHThbCSFwRHY2FJMyKJPiYHMfRJ6ZCjZlWNKjKpF4WPnf CDTyQTRbzh9CDXRpFEEqIHR4EHZpZFWiFEXdEGaqCLUvCJB4NSWiHILtCAZuRC9LAkOeVKGaNeUhKMIo NOCiLUHqmn6YZPZnIDQxJbNhMWTcCAXoQOYbZRjoCR KxLXU7ZFv4EUIrABAqDF5TXkBmQZBwYoi5SFajOUTlGQQwkz9UVQNmLINsODUqAERoJLQqRJEqXAjxVO KsFDU1Hrs3FRRrGTIoGH7JWfXhDMbwZRBSTqq5CKveS8q4CKVhPF3PA7Qkk5OhDqZoHDADQMhlNC2sdc HaUIJhLd7LZ1lKRqumMHYvMLW9QijxLWwnZUS5FJUk YMxgXYZyY9PhMBm5EL7kIHQ9YfG5LdqsB0S0HaFtWQegNAMlTTSiMxZdXWO7GYYyDjHjWC8CKs9DUoG2 IVP8ePCmEx0SKoa9WrqXDtOgVV4KHQd= ID Date Data Source [id number] 07/15/2019 06:01:55 PM [facility] Name Value Range Interpretation Code Description Data [facility] Supporting Document(s) History and Physical [facility] IMWDVc2sVjPRRrIa49/ANRjwRDSxv4UwWKatKLi6XHafKPVwC7BfDUK7hZ5zMVJ8WMtUGgFuYoZqCjHa lbm [file] +pr8X5ieQa3lI3swhr2gy3OTam4ag0RauXsQ/0q6+[place]/aKLBq6pv5+Qco8EB3+Fn99GpN411u22uZF/ [file] ICAgICAgICAgICAgICAgICAgICAgICAgICAgICAgICAgICAgICAgICAgICAgICAgICAgICAgICAgICAg ICAgICAgICAgICAgICAgICAgICAgICAgICAgICAgDQogICAgICAgICAgICAgICAgICAgICAgICAgICAg ICAgICAgICAgICAgICAgICAgICAgICAgICAgICAgIC AgICAgICAgICAgICAgICAgICAgICAgICAgICAgICAgICAgICAgICAgDQogICAgICAgICAgICAgICAgIC AgICAgICAgICAgICAgICAgICAgICAgICAgICAgICAgICAgICAgICAgICAgICAgICAgICAgICAgICAgIC AgICAgICAgICAgICAgICAgICAgICAgDQogICAgICAg ICAgICAgICAgICAgICAgICAgICAgICAgICAgICAgICAgICAgICAgICAgICAgICAgICAgICAgICAgICAg ICAgICAgICAgICAgICAgICAgICAgICAgICAgICAgICAgDQogICAgICAgICAgICAgICAgICAgICAgICAg ICAgICAgICAgICAgICAgICAgICAgICAgICAgICAgIC AgICAgICAgICAgICAgICAgICAgICAgICAgICAgICAgICAgICAgICAgICAgDQogICAgICAgICAgICAgIC AgICAgICAgICAgICAgICAgICAgICAgICAgICAgICAgICAgICAgICAgICAgICAgICAgICAgICAgICAgIC AgICAgICAgICAgICAgICAgICAgICAgICAgDQogICAg ICAgICAgICAgICAgICAgICAgICAgICAgICAgICAgICAgICAgICAgICAgICAgICAgICAgICAgICAgICAg ICAgICAgICAgICAgICAgICAgICAgICAgICAgICAgICAgICAgDQogICAgICAgICAgICAgICAgICAgICAg ICAgICAgICAgICAgICAgICAgICAgICAgICAgICAgIC AgICAgICAgICAgICAgICAgICAgICAgICAgICAgICAgICAgICAgICAgICAgICAgDQogICAgICAgICAgIC AgICAgICAgICAgICAgICAgICAgICAgICAgICAgICAgICAgICAgICAgICAgICAgICAgICAgICAgICAgIC AgICAgICAgICAgICAgICAgICAgICAgICAgICAgDQog ICAgICAgICAgICAgICAgICAgICAgICAgICAgICAgICAgICAgICAgICAgICAgICAgICAgICAgICAgICAg CUVeLLLyBMDbEQKaXBOyVJEnHBAqYIGbXUSzYSTtRJQhQKBdPITcBUh2O2phLTAtVCGmTO2oHCx0Zc8+ ZEsJZbAsKWJ4inKnlL8CHC5dd4XeKFauKDSqw4ZqUC z0OQ8GHCVkUSxbTE0WRStyxv6XXKMhRHTvwFWFi6kcElBgABU5USKfOzqdZU1ASRHtN5rnoeEbZKRuYF BNDYlzJMNCHMxwADJUALFvELAdVxQtGaDjVHAlIPCzMMFTAPA1RFVmCoUxHHegRG4Ew0SvyXP8WSs+Pg 8MHU4oq0YvECv8NIFuQK0jvl3NNKoVPwYqY9VlkjP9 SPXcNOXaBs2JIZPhURTxbKY9GUJaYUUNTfWiQ8OlmX47VLQGEn7+YFwiizQfYuqEAdUpYRAkx8YoFLc2 FV6GDBZjHQu1fRZyGZZHKHL1HSS2kYDcDMEqDOz0ovrwHCETNJUpdYJeWiAjNuEsRaFwEFE5VFmtDW5c SNkySK2CGOD3ACayTHJnCAXkR3sIUaDwCUNrPnVokN ykBA5DJjFfI2OomzCvtOI2HGRgEZJOFh4+HHabciTtPiwKKvNyGMOmx0PiYWh8CE4NPFJrLEcgIX7FIX BvpN2uCPxeHZ7CRlLqATHlXTJHUnOuH21rhPAtCQr7S0UkLbIdBAPmVbniWAFlOTjkUyEkUXIeTpFxQH ogID4+ID4+UEdkGU7LAGlrdzFlIUGgYb9IEGXxALCo NQ9oRPLmTZGnS2I8uWugAOHSVpTnG0hzkiysJE6zUCDdQ569tZsvckJiBKApEEVjZs4IDONbYGJ0SLTw hOFdQbwtMGJADNgcZD5XrBOrBBS7sK0dPCmmTOLxRTFsZ7hPPmLeuEybHC96pAskmoJbfZUiRCi+Pg0K NP7xx3AoIFv1dmQlMLrjLKBhISnePUJrFNKxRYGtXH A7MEI3QTUQSiJzVWZgGJVnROcmIVFqKOYgfg9CLCZbUCX2TnOqONHmUAMfYFNuWTkzYXHhEDP5MEj4YI AwSEHtHE0VBgQpEAOwEYXrYGmcFKDfSTLmqa6EDIOyKUEsIqj1WaKdHGSvBAUuOWxpWFZzXKGvIUc5YZ ZxILHrNO5LKyGwFXKdGJcaMLnnINWoSCSxah8MVSVd DSKuJaG5QUBzKJYxZWNeFUwcTGFkTLZoNrC3TFMfEMXtSN1FQjFlHLVuTUE0PjxhWMBiZDSetr0RMJPn WFUkLqT4JCLaOWEoOVWgQUjzONFsTRPcCMjsMDUlJUSiEP2NNuJsLBFkHUP2PKIvWOZoVJIvfn3HRJWw AGCgIet3VGEgEMXjYAMmAMgxTGEiXHRbABD4XQUwOJ UvPX2UMmGhTRWcUlDdHwHzMMAqECQgwu6XXWFiPZVzYrY6GMCfNABlCJFkXIltATLaPHUeFqO1GGMhZT BjEX9PKkXjBRClXkJrAiAhSDNuBZSpcl9YTCYmUAFrOWP5FPFmGIPqMPUeWBnoAUDeZBD3YbT9GVIdVO SbWJ1DOqQhGLWzEtD1IDYzFXEuAMZbkm1LKFAsATSd OMsdCXMvAJQuJEArBYeuDHYnXLM1QImnLTOdINRhCK1HCaKfETBzYfN9DBGuDUQiAYHdvv9GSYQfWTFp TdR0MCHxZUNaRDJfWIwaILExXDS8AuNtPNTbDMTkPH3NYgNeWJMvDgfvRLCjMETtCWMhaz9BAJYlEUGr IHY8KGUzKBVsIFYwRLxcURGxVJO6QertPCRmIATcJG 7OIyZoTCGwYMYfEmymMDGvNLIekc5FPAPnVYR6UUL2VGQbBNEoQYIcIBprFMJeIYYzGUw9QRHyXEWuON 5IIvOjSXEkKUE4NqKfCTBhNCOgkx1QUZIoQMQ1GNv0FRLdHJQvSNJhTEsiSKHhURJbBZEjTHJcTCDrYV 4DUxSnBRQjOXSzMVZvBZKuPHVfez0AWKSrXUW9JyB9 XVXcNYQuIJUlYWsyYPIvEHJmQhL9QHLxRBCoXV4PPhXcHAHiEDFtURDuUSOeVOOjmu2WRNCjKFB6WQY5 WrDvBBBrGZOpJYnyDVLuQVY8GNS5AAYsKYPnUJ1MSaMsSCrjGQNTLkt1RZypV1c3OFC4Nv0QX7Qfl3Hj TXLaMXNTVMgbFT9paiQfFYMrQh8CF6vNYrw3IVByKG RaGACtERW6BfXpNTa4Qwo2SjZdCSjvQSShMb8eJEnuRDNfGZZzKkEqMDUjZXYyIoGmXFbzAcZmJYDxLS WkHjLvYK6UFh9ZCjM8GNS1hXXnDi2PHIO8AqlJZhFzUD7GIBv= ID Date Data Source [id number] 07/15/2019 06:12:30 PM [facility] Name Value Range Interpretation Code Description Data Hedy rce(s) Supporting Document(s) Glucose [Mass/volume] in Capillary blood by Glucometer 150 mg/dL 70- 140 H [facility] ID Date Data Source [id number] 07/15/2019 05:10:09 PM [facility] Name Value Range Interpretation Code Description Data Hedy rce(s) Supporting Document(s) Progress Note [facility] OERDCw4eHxGGEiRp42/ASHebXANxr3AwGJwtCLv6FEgmCKVmT0DtUOR6bA3zHFE2EXxOLuLoSmKdBbEh lbm [file] DQo= ID Date Data Source [id number] 07/15/2019 05:01:22 PM [facility] Name Value Range Interpretation Code Description Data Hedy rce(s) Supporting Document(s) [facility] JPLAPk8wWfDRQcMk85/FBRdlCEXim9WtPIcvCLi3MFleJRLpU1VrRVB5dW3kXVE9SMiPTdDfBzSdGzMc lbm [file] +RtRW+sdTyuYMkevwXioJ/vpEP6ZwF0W/3KiDJ [file] ICAgICAgICAgICAgICAgICAgICAgICAgICAgICAgIC CtGMNmLWPbRHAiJEDmGTNaCXRiTIIcFPOgFPWzQSJkRAMwLFLmPBDaKH2OAUMvUFHuCQFhMCAqNMRcPO AgICAgICAgICAgICAgICAgICAgICAgICAgICAgICAgICAgICAgICAgICAgICAgICAgICAgICAgICAgIC GoNIXdMKJdJSWfMROiHNHrPNQfMEZxKX8YSOZkOEPh ICAgICAgICAgICAgICAgICAgICAgICAgICAgICAgICAgICAgICAgICAgICAgICAgICAgICAgICAgICAg XNUkQAFiUXAbDVMoSMNuRKCoQKLkIPHgZLEpRSRkIEVtGM1AGCHxSFJsQBTcGEQmDSKtTVOiDRGuINHm ICAgICAgICAgICAgICAgICAgICAgICAgICAgICAgIC HrVPOmYYKyXWVxTIFlKSXvOWIiAJZcSCQaBZHcOBRsXXXqMONeVHRaGKElBM0TMVAgOWMtPORxIAWqMR AgICAgICAgICAgICAgICAgICAgICAgICAgICAgICAgICAgICAgICAgICAgICAgICAgICAgICAgICAgIC ImELElYFUdKEQvJUQcBNRcOHPaHXVcOKZaTO3NJMJn ICAgICAgICAgICAgICAgICAgICAgICAgICAgICAgICAgICAgICAgICAgICAgICAgICAgICAgICAgICAg LQPnAXPvSPUvPLKkFTScBLKcAMFuVLCbIWOqVULyJFWrYSAxMR8UWKRkBXGnYJGhMTDmKGMgRKZfFFEm ICAgICAgICAgICAgICAgICAgICAgICAgICAgICAgIC GjMWJpEHRpBSCqJEFnZXGiXNNyCBVyHZDfFTEtRFDyYGMyKHAuUNJgPEZeUBZdTP0HIMFhGMWwWGRbPP AgICAgICAgICAgICAgICAgICAgICAgICAgICAgICAgICAgICAgICAgICAgICAgICAgICAgICAgICAgIC YlDXGiICUrRUCqNCMyBWMiBXIqELYcYCAoUPDjEE8B ICAgICAgICAgICAgICAgICAgICAgICAgICAgICAgICAgICAgICAgICAgICAgICAgICAgICAgICAgICAg RNYuDZYxXQLfTSUoTLEvVOVxZRPgMISzRQHpVNYqYCObWGYyLFXvEN5ILEKvBYIcBXJwXDVbBSMyXAVg ICAgICAgICAgICAgICAgICAgICAgICAgICAgICAgIC JuTFHsBBPbWEVlOMPkKYWgPABrEWNkBHTkZQBeHSOcSFNlCQKbDERvGTHsLHFzYDRzLS1DLO80dAOyl7 K0XIAtXH1wtng/Lt2VXOcpojNmxHVaTP2PTtGyVH8ram6KSqKdHS4uyj7IBLfKPaFyK4I0aSPmRJAmAW KMUqPkY36oWOaoDs40TScyWURyTpJqTOq8Mf7TDmMb R4xzEVEyVfZ7BQLqUeY1HZJaUhX4DKGqAnQpQMDgHVMrXF8MVNRbX474roAdVE4HRv5ABiKiNL6jpc1G XlCyLUGwZlyJNvp4VKoxNT3ArBGrnCHgNYHzMFOMVlZhX5cco0HtPuJiEMHHHVqdEM8Xf1QehQKxBIv+ Rz1AQM6wm9QqXQniUGAlPB6ycv8YCHoJKrFdJ7ZezE fhDCVxogX6pGJhJJC9CFPka0tcwKTwF0ElziyzwcEiSHcwIU5OYhHqoAErBgXqVpMtJsApPOA5UHQpVD 9sKXibWV7LUVP4DVpxFSMlPFDwL9qSAlAwYLIiBhGqvFmjUT4OPsGqC2VbyaKjpIUoJUBqYSJUBc1+DQ kwddQvUniFRxGbZGUbc2IvUYx8SN2HRFBhWQqvRC3Q PSJndJ2nCSfdXF2JZeScQAEiNXQFYvUtA60daFTbMUs7T1DwQtHtISCgRtquIDNlVBgpOsBcYMFdLsAw DQogID4+ID4+DKhlHL6BWCcezpWqLCHqBb0HOFMuJNDwTK5gIDAaMEWgB4B8aDhbJMYDAqFkN3ututds UC8vKGHtY760iFiczrFlTOXfZXZfDi0PBFEdCSB9KA YfxOZkOEjoXIPVRZnyWY4RoHYzHDL9jF6qIWgaWMCmKTUoO4dTZwAbqNshYS62cVbjniSvmCBgZGr+Pg 6SAN5eq7DkCId4yzZrJJcrVUMtYIjqKAMkTQJlDLBlHDL8DOL0ZBNRVmUpJNQsQSSxREnvGPXaMAMywd 4RWMSpQFRwQHJjFvArGPMpKNZpLYyiSWIgRBZvYlN8 QRMgARMbPC0CNnXgVXFtNBVpFPqmLMAyYZBfev1UBYObLPHeWJIkLiFzHQTtRKUvGBorORAoIWT9WkFe UTCtYWUbCB5NOwQsRFWuWUv8GVIdLQKmJRApfq1QYDWoYAMmHPP7XGXnGLIaRDSwGEvbLHQaAFOfDPk2 DBEaZBGhTI0PVxJvNYHcVMDqMERtLAXtMYZqjt4IXO MrGVZmPPTcJTKaMYUpGGFvDBbzASMfOHQ5XWYhYZRkQUErMI6OTiGlBPPrBEH0JxHlDENlZWJzer0FAL VyYNNqAvq3FsAbWQNjIZCaFSvhQPOtPPH8GRXzZAHaJGYqLL0XTbRqIGXyUHhrUIrjAIFkYNOhel9MKD MeZHEkNZHiDYAdHHVpZQFlJBsvIQPxUBF8HYj0HBRk ZRKfVC9PArMvRHGaDNj1GSTvURBkPOYzuw1KBPKrEGWsJOO3RCVcGEZeJSReRYfzPDExVBQdTPSdRLJg IFJuCQ7RTnQkYPKkPsU1SWMfBBGoTYCgdj3MqQYtpYjria1SIDpQLk2LlAjqCWTkUYraDa7yuJBmHbUr DVNOUv7OzzQvANIeXRIDSOsrKWDmHEQwGPMvGAU5Dx B4EZO1TjI4RAAzWvX9EAEyUoAbNFCzPzN0WvFcDaYmCpGbIks3SNRbPQx7FZMpMOkuMmHaQTUwBSE+IF 0gDQo+Me0Zm4RoygV7wvDmZFuxWOfyCV7FGBRHI5LTKw== ID Date Data Source [id number] 07/15/2019 04:08:30 PM [facility] Name Value Range Interpretation Code Description Data Hedy rce(s) Supporting Document(s) Progress Note [facility] JFFNPu3qDbTHPlGt33/KJFtuBBNqk8ViWImuZJz3VMftKWEpB7BnTRV0aU1lQAY2KTmYGwJfWxOrRoRv lbm [file] AgICAgICAgICAgICAgICAgICAgICAgICAgICAgICAg MCVcUOIeKOCvEQNsGRThVGNyCLKbTOSjNRUcMJEnGKHnPDGdKZUbQTNfHGZnGTPzQMWnVI2FOFEaOOJr ICAgICAgICAgICAgICAgICAgICAgICAgICAgICAgICAgICAgICAgICAgICAgICAgICAgICAgICAgICAg ICAgICAgICAgICAgICAgICAgICAgICAgICAgICAgIC PiYA4VPOLsMFRhVHXbZQOoKJVfJIHxCRIgVSWqMEUiCACdYZPwYAAsLKGtCGVgZUWqXNVtTELyWKUlLH QcVGCwDWPnUGQoZRBhWIBpOCNaVECmCTClTLEvBPWzOQQyWRRzZANuHTMkSB0IWFHsXXNeSTRxNPMbGC AgICAgICAgICAgICAgICAgICAgICAgICAgICAgICAg VEOlEVGfIIMtLVIaMEGjRKRiGCCkXALnUEGvKVLmWFTsVOQmYUVxTJCjKRLtZRRqIWTmOUTcDL2CENWx ICAgICAgICAgICAgICAgICAgICAgICAgICAgICAgICAgICAgICAgICAgICAgICAgICAgICAgICAgICAg ICAgICAgICAgICAgICAgICAgICAgICAgICAgICAgIC WhQXIfBJ9FMDFiZJEyJUKoWGLnPVTuUZJpECXwJZBzGOFwALQwOLAmAHKvNCFdLJMeYSYtRRXnSJEyLN ScYMDwWMFvCEBvFZEoYXLkPVXsWOZqSTSpOYZfMHZpOZXgINTeILRoKNImRRCaCQ4ASGFfDIJnJLUlJC AgICAgICAgICAgICAgICAgICAgICAgICAgICAgICAg ORErTLBwHRVsGAKfMBFgXQMhNSWrDWXnHCEqHLLsUNZhKOWpZKYsNGCtUZHdZXYzSTDzDKNsIYJxUU1S ICAgICAgICAgICAgICAgICAgICAgICAgICAgICAgICAgICAgICAgICAgICAgICAgICAgICAgICAgICAg ICAgICAgICAgICAgICAgICAgICAgICAgICAgICAgIC KkFRWfOUBxEM9ZTREsIFBtQRYlCQYmZPYyKXGhCNFbDHZjOHXhZTNxYATcLXPlRWEpNUOqTDKxBHDaVZ AaHGWiGSHzYCVwLCKlXMTzUADbQRUtSIQsXRKsXBBbAONzWDQvTMQeXDZdPOAjFTIeWC1XFLMsXTSuZF AgICAgICAgICAgICAgICAgICAgICAgICAgICAgICAg ICAgICAgICAgICAgICAgICAgICAgICAgICAgICAgICAgICAgICAgICAgICAgICAgICAgICAgICAgICAg TH1POQ16xKBnp4N4HVFjTI4jdnq/Ul0SOSenyyXsgOCbLR0DSnIuNA8dxm1UPbHaOY7vlb4AUGuSZmYw Q7A6hXYuCPJaCEAPRmXaE34fYWfdRb87RWbvRNKcEk YpFAs3Go0YJbDxA3ncLNDhZkA1HUTfHbUzFOvzBR7So5UrzXJlYGr+Ak1KXO9nt5GjNWpgTOVwLM0syj 4KKJpBHnAnS2IgjdM7BZE6BZXqMg5OLMXiSWFvdAVwTVVgWZLCFmVbV9EkqQ11GSQXBn5+DQplbmRvYm hIWeK1WBBne7BqONa2KN0IJPPcXFa6bZOqZWInE3Fa l2ArZk79JKCyCkwzDX37YP3pvxAyG4SwDHexMs6cITVvKc3dGD8vIICgCKA3HhR4HSDNOI9IHACsDVHw gTSdLASsTYFATY9BGKubJON7NDKegjYgsDZcSIfuRT0PQXQqbaRrTSPfQFMZGNp+Dd8OVX2tb5YhIAhe FoQhQU5ias2MWFwGSePsZ9S3cEAnU5I3QDjbCo8VKD SmUVHdLLXwHWXLUTtaVU3NBW8aprR0SS6RwZSbUDPpBSQrsARaDOx5M69bhOLoFJzkFU3DQOZ+Lambert+Pg 2BMLIkRWPlUEAjAyOaIGZUWwGhA8PbB8YVs5UuV3HlHZ39hMjcveAuAPfrRQ2PEC5lQZLdWQFVHJ8GcI RyoD6ogkEdREUgWLCAPkUnV61jqUSwVGMiGJVlNWXt Oo2FWJXmH9SuyqWfhIspgkZgRMFlXIMFOR1MCDwlsyOodTOzqOdcWM92cPphFZ1DMj6FNdMhWT3ees2M eBJyAw1GPZUcGy8VENUcQOGuHHDfSGI3YIYgRzLcEDdyMVFvGAFsPVW0EAHcCTOaEZ1IQmNwCGCbDPA3 DWQyKDRjKKImav0QMGMqJVLrLcA8PDAgEQDoJDThSB bpPVAhXNOhVHG6VIBsRMUkQC9QQpJxZRToXPB3ZcJgSVZgIZYmxi9UFNQgTEXfHMvnHWQgXMVaVGIxYS cgERZdCVTtSgi9PSFdITGvUT8MIhJxODHyZIM2GYTrKYIrCDPcwz3ZQUNiLDRkEaR1NXAdZEQsRBGhDP qaPAMaHTP0RCAqNUBiOOZlVI3APlGiAZHtNGRlHhZr IIAyURBscp0CNBIrPMMiVREkILZvINDqIRVgWVnwVGOcSAG1NHT2QQMyFXTmSP1NPnLbNCOaAXGaGdTk EREbSGOunj0AOIKbYWMoTxSxJDFbXPPsVJGiGJzuNPXhLOZ9KZdiKKZvOMIjGJ2MPwYvXGdnOORWDvg2 NDhbY1i5LXFoGf1UY4Isn6WgXWUdAAZVDCzxKP9srb OkTJGmHp4TY4fWZou1LXJ2Ray4Iss8BoAfSWWhNANgQpGoKvMoHXE5KDB3JX2kCSf3LKxjVEpiDrVeIb RxMBR7VUHtToDwLWEeYbAzRZM6OnXdPQ3EIb9VBcQ4TJP8qADeEl3UBvytOi6QQWQCR4ABUg== ID Date Data Source [id number] 07/15/2019 03:27:15 PM [facility] Name Value Range Interpretation Code Description Data Hedy rce(s) Supporting Document(s) Consultation [facility] QOWJVt2rJtLKZrFk12/CNUqjYHGsf5LfKJqrPAr4COnrZHRoK5HrLAB3bX6iVZR4RUqZXeWcAlPiFtUl lbm LdWudMCiSlUIWsZegEImLeFJeoGclymXGbOT5ExFT6HJOrH46xPMFdWUMjN6GwVKT7Bzl+Av8ZNSRutP LmGG4ZEsrR5S3Fu7hUPZ3VlG/IGVHBl4xOj3cKqxVHsyp4xNsUMYXEOtOKSk15Lz1LjFvdRy/kXOZ8qZ 1xo9AyoPJGTuSIIX1G68BSYQQApl+DzcC9LZmjB/Wf TbxK7Se6+U+xymdR9PLBl+wicoNyIicsbkj/oJWbg6x1LaGtAjOiNh0m0zMvXMVabNQ6dqzoWAd6Bvc+ YFDwbp8zUQ/MKPxKbT80BpVDFWQLi6nDoG5Xtpzwzg3i7p9LNbWnCARLOC8hqL3sVTRb6JpPu6T6tz/P crLq+Rz5r4vBKg2/dOPj0QTKIboJbXGqrEpTC7/l9N Gl+SZ6QXbl5FUxYYyz05VTRV5u5SdVtG4ZJztxPrrkfTtm+94GtvkJc4CyXu/1JcNKUhcg9zSP4Bx5+V eJuLHLP+PxKdUqdwgHqY4vU1DugN5xNdpJWF38WBL/z9dt2IfFeAg8ucwi276l9/Y8o+VEa2DQanphYr if/NekGGFobxIqhYo3qrtyApXWYJqb7X2QGP0Eb06F jd292XFsyn0JmqmKh86VN0hNYLlObXAIeu54+nPcqb7UoDkpSShxAa0lR+5BAvjPN1JVmh+20vVgMlkl k1mOP2IjpqJw6VdbenB/l5aIWt6vpciDcYCLgFBXhnMmT59BdVzIjh0o9HjcpB0MZvNQkGd/KMgtZoOF I8r6IxGQm0OMy3jzPyEchZpdD8NA8MukSlAlbtbQP7 /UeQfb0zhepVp+4SgvFB+eHS/xLu2dp8bwLCEcvud/URdNiYvWuiyoGjekWqe+lKmrCU7qN4Snztzsrk AVfUFcjLaihPYTF0A0NlKX3ywF/C1gTHOd4JJqyZwSmO/F5dR+AsV7Su7C9Clo/c4iKhiNaAUSzEQEM9 UHk/shkyTKmd2eVOMDMvz3EK+Stephy/UC39Ha0BHiv/f [file] inside sales supervisor+I13O/fBDeWhgbPS2OHsIhrxENRFUEaqc94Kzzz [file] lhGwFqNCvpIML8KaOdTWHpQCxfCpWsMK6NMi3UIqJ4JZP5uDIuYd5YAQN5LXFUHiYgGF5WPDe= ID Date Data Source [id number] 07/15/2019 12:53:34 PM [facility] Name Value Range Interpretation Code Description Data Hedy rce(s) Supporting Document(s) Progress Note [facility] XOOWZp0yYuFVGdJe04/GCQoaJCSkr8RyQGxrHSt1XOjkVLPaJ0PhVAY1yV9gRIC4UKsQPgQyOaQhOiZi lbm [file] u8JltuS5kxJfDGhbNxu6DB3FICSIN2AQBc== ID Date Data Source [id number] 07/15/2019 12:23:22 PM [facility] Name Value Range Interpretation Code Description Data Hedy rce(s) Supporting Document(s) [facility] KTNTIk6oFaJMGzVmn6YuAqUiSWPdMR0kdac7C6E9hXKmS4UphREfk7ceV8QlA0GoHZRnBEQDRE7OnJJf jb2 [file] 1yckP37wpU0XVt8Zg+investigations director/Y2lScPV4pqy/W5s33Hgnwvs616ton+bt9C2ThwMd4ercLMGfr1KYP42TdN [file] DATABASES 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+5QX49tuUbqJRxwCHZ51MvizG02bw5Twtc371O0S +y6SHsWTu9wZcNycgH62Bzl6HY+RDZ8P35Sfm96zsuCf9ucZM1/opL0eL626bi07v/c6/7ljkM56f1o1 iYzvq9KPJOFy4FwGwtxbkm+FWz9QH/kwW1fv8wmnztE7H7/pNaOljt4jM+B4Jj8aQ9Lfy9/2Mati78NY veEPsw02TkwUjjI98aMd0gMN30K5Lr/Kubh+lf2O+v 56LMwZ/2H4Nl868okO6CPnxwfzDcWXCBgb+TUdQFP0uUN+fjAQkbdlIoqfn8Y76KyYBh+Hfb2s307Fyc r3gsPtz+SjA+4RkBFqs0aSq0jvH93QVJU6pW/xn7WWes826N0xorW373tgwc1icrtq9iqVc9gD5Zpzy8 Wf+zGIr1s44bKvmzg8DtbUAG+tW0DI58geXgMl829M rbxnPgx0Gjcylee3bW/FvWG/goSc6txseu/7w6mgz70EFbHKKiEM6IM2cAqPC6mcR+x3Ve5SjfyEtunj vU8ovkVhf2lfVug+aabG4AofsgfAa8M7P73h8WD/UF/3u0yxsXT2uBu1ZhQi7adpK+uXkQbxt1h+Nvrd VR/2q1Tb78Xk2380LYshTTtmm1cqzChTB8jGUA+TIAGO [file] Txv/3Pj19/+9Pobk210865/Aide/+Pj5T/7o6tlmk/ftNz/7+If/1tY//PnHH//qKD6w0W/0bBG5RthIh7 W//fl/mjNKVmrS1V///i//rF0n1Uphyk/6481Vel0EIURI43v/L7iuTF/u/u/Pf5/lVgkV1Dn//BkX62 hgU6Hb0CfaW8KSEv3F6X9/1+kO28mbp9go92Bbg/fP v/t4f2CVkqBc4v55/fNvfvnxm6+//8Wvf/IvH8eol8zgYB7C642h3r4Ynat83fiX4A25CJxAx1DUryY0 fli8X//uD//x3z/+7bf/8bsvWv/61F7HHgr0gb/wERwf8TrtO681JQ/2+49/+cN//O7f/sdv//W/aP6I 9MvmY+yHN/+L1g/v777/5cc//d+fY/+XP/5pG1c7MT J/7wx8hTn/98Nf/t0P/7vAlL7Xg5/zb5B9R2q/NFnkFk3frWAsZ2cEzi/BqiogI7w6jY/7o+9/9MPHb/ +f3/89d4225qBl+0df/+pvfvRmuPl8/z738v/5b//s686h1RiBI//ma78lvHrA4S/619/+4//1n++9Av j+j3/8/Vdf65/wz2B/9sd//BhLLh4PDvG5+T/87h// jz/8yz/+y2//3IBIId65j6rwCIpi0n//x+dy+aevfvzrr/9zf/4F9/fkFz//+Tff/fDLr/j+vl+m//9L 3nOIfMzcEP/2t//88h2dnb//+vKCY6oKn94oQb/faU9yg4psNi/41qzD4Z4o5yluR4//7BkrHup2I/Ms VV//+Mef2+nntf1N/DA+tb59Wv//KEPwW5JPEI0pz3 EhZAHeInIvVW1kopliFVQpHP9twdk8Z5NwwWuyVPeXKVMcVo5dlNSwCL4ZTHB8WNosNUXnKLJzW5CqjB 0hM34nvYKrCiAeGUZLXB1LqcD6LKC6LZF9PVAcFrNvTFBkSF13XIRnURUSZc8yfjKyVdkODjGlSU5njv s8E8M5jLIvC162pQpbczShRO0Yh5WwuBSiGJ3BjDCt fIInKHQdHJHiE5ywb3NhEYqvGDRBAh6kavZnDdzDElLoXR0okar7P3D5zZquzjSkYFVHBDyxAnxdYK8u mExzvolxA4GmyBMqVEHqT4YuBCOcs50GVZFyMQaQYcCjTuKqSoEiJUTpVisuVnObYOJnQRNdHXWhJE9V eZHrORSkURBGZZmgLkjtQMVwdY7ixYRZc8BpR74LRO WFEHDQLS7HMYNZSKFtXjl8VYJpGX9HhRElZQH2DAcKKVDYLOkPPFboCaSfd4F6FKIlQ7FgFDTylkKdKO MAODakXdnnYF3jpIqxbvsgL3KemOJlIJTJRMNsCMAgVGClXHFuF8Ldn3H4W3IqKLeGMPNPUUvIXDivAn Z7l80lnwLRWEEtBSWtID2+BN4fg9EyUx5IHSPaWZ3d eha0HL9MeWTiEY7DMGuergJlI2agisKzXoHbJNZLZA1gO1FeuK37NSN+EpOyME1hrih4wqUmYeCcNIWs DLGvYAWiSNmgFUDuJYKmRLQeXUO1NSO8AHSdAlKrYJEgNyy7YMRxOCRbBLAfckODJSGgEMQ9WBS5KUIy IKWgHEPdAFthKLYgZIT7XMK0KCBnWLBuFM7wMoWfWR AvUGFzSPQxMlC3CaXaNgOOBJQwHAPdQNShQrQrNMKfGRJpBTtvUBMdIFKoCNh4AGUfPBQmBG9zCrPcWM FuWXYuIDByFOObVOMhwePPQLVlDOKwNDB0SMQuPBCcNHFwXElmBRMhQPSfWUI0TBEpJEAjPZ3tUlUoKY BhYOS2AbJpZRJmCQEpabWEITRuDKOiJWF1SGNfUQLd BXTiUAmgBNFrKILvEwX9TFCzSJSoUC9tNjJoCMYeMXL9LGVfTARsUSFabaUBMVSoUEZaQQv0ZzTvGHKj AWPrGNmyHHVkCCItZXquUKSlIVJtMD3sYrDtNTJwIXVfJICfAQDyFWUpcjZKFBNqEXOyKTI8ShLeWIKn HHZcKOnkEHCoFUHzWJS4KMZvNJCfVA3iGuGxPVPtTy tkUKbkUOZdWNLamvZNGCOxOEOgAXRoMQTgFCClSBZdWYuqYALxBOGhRoU6EFFwNYNeVG9dUaIhUSJiWR Y0LVCsCFFjTKPfdfBZWJTtXTXrUXJuIAT8APSzPEJwIIu0epEikKPxRpy9As6LnFdzKZG1Lb8WsmUzNF CiUSGSDf1Le305ZSUyOEQZJci+PbcpkGPwfAlcLEJHLxt4FYQEXOHZO7I= ID Date Data Source [id number] 07/15/2019 12:04:24 PM [facility] Name Value Range Interpretation Code Description Data Hedy rce(s) Supporting Document(s) Glucose [Mass/volume] in Capillary blood by Glucometer 247 mg/dL 70- 140 H [facility] ID Date Data Source [id number] 07/15/2019 09:04:18 AM [facility] Name Value Range Interpretation Code Description Data Hedy rce(s) Supporting Document(s) Progress Note [facility] WYSWBq7lQpFWTeEe75/RBHakUOTta9AlHEsxTNy6MXslVTWpA0MdBDQ8yL1nATE7YZpDLgOrXuQaDoEw lbm [file] ppFBJeSzTuUVxcR6J2MgOcWLOiHER+RY0mPDy+Ji2Bw2XgwgP4ivMeTWy8INK6QEbjWVNNVy7C ID Date Data Source [id number] 07/15/2019 08:09:52 AM [facility] Name Value Range Interpretation Code Description Data Hedy rce(s) Supporting Document(s) Glucose [Mass/volume] in Capillary blood by Glucometer 183 mg/dL 70- 140 H [facility] ID Date Data Source [id number] 07/15/2019 03:07:10 AM [facility] Name Value Range Interpretation Code Description Data Hedy rce(s) Supporting Document(s) Progress Note [facility] YITTMi4aQjCFGkVe10/QSSqwNBIhd9AbSLrcKOp3AGuaPZMfD2DxOXH9wS0tWGA6HMdBNrZsKtMxDnEz lbm [file] I+TU9ySTe+Oi3Cw7BxzgG4rzLsGCloYkfhAsCIWxQzKH8CDTf= ID Date Data Source [id number] 07/15/2019 02:18:32 AM [facility] Name Value Range Interpretation Code Description Data Hedy rce(s) Supporting Document(s) Color of Urine [facility] Clarity of Urine [facility] Specific gravity of Urine by Refractometry automated 1.003 -1.030 H [facility] pH of Urine by Automated test strip 6.0 5.0-8.0 [facility] Protein [Mass/volume] in Urine by Automated test strip Neg [facility] Glucose [Mass/volume] in Urine by Automated test strip Neg [facility] Ketones [Mass/volume] in Urine by Automated test strip 5 mg/dL Neg [facility] Bilirubin.total [Presence] in Urine by Automated test strip Negative [facility] Hemoglobin [Presence] in Urine by Automated test strip Neg [facility] Leukocyte esterase [Presence] in Urine by Automated test strip Negative [facility] Nitrite [Presence] in Urine by Automated test strip Negati [facility] Leukocytes [#/area] in Urine sediment by Automated count 1 /HPF 0 -5 [facility] Erythrocytes [#/area] in Urine sediment by Automated count 1 /HPF 0-3 [facility] Epithelial cells.squamous [#/area] in Urine sediment by Auto mated count 1 /HPF None [facility] Mucus [#/area] in Urine sediment by Microscopy low power field None [facility] ID Date Data Source [id number] 07/15/2019 03:00:06 AM [facility] Name Value Range Interpretation Code Description Data Hedy rce(s) Supporting Document(s) Amphetamine [Presence] in Urine by Screen method Negative [facility] (NOTE)Positive results are presumptive a nd unconfirmed;confirmatorytesting can be ordered at the [facility] at [phone] [facility] at [phone] within 5 days of collection. Benzodiazepines [Presence] in Urine by Screen method Negat [facility] Cannabinoids [Presence] in Urine by Screen method Negative A [facility] (NOTE)Positive results are presumptive a nd unconfirmed;confirmatorytesting can be ordered at the [facility] at [phone] [facility] at [phone] within 5 days of collection. Benzoylecgonine [Presence] in Urine by Screen method Negat [facility] Methadone [Presence] in Urine by Screen method Negative [facility] Opiates [Presence] in Urine by Screen method Negative [facility] Oxycodone [Presence] in Urine by Screen method Negative [facility] Fentanyl+Norfentanyl [Presence] in Urine by Screen method Negative [facility] Service comment [facility] Results below the indicated cutoff (ng/m L), are reported as"Negative." Note: for medical purposes only; not valid for legalor employment testing. ID Date Data Source [id number] 07/14/2019 10:07:14 PM [facility] Name Value Range Interpretation Code Description Data Hedy rce(s) Supporting Document(s) Glucose [Mass/volume] in Capillary blood by Glucometer 220 mg/dL 70- 140 H [facility] ID Date Data Source [id number] 07/14/2019 07:13:23 PM [facility] CT ANGIOGRAPHY NECK [id number] RESULTInt erpreted by:Dio Colvin, MDCT ANGIOGRAPHY HEAD [id number], CT ANGIOGRAPHY NECK [id number] INDICATION: Evaluate for CVA/occlusion. Aphasia. Bilateral lower extremity weakness.TECHNIQUE: Contiguous axial CT images of the head were acquired from the base of the skull to the vertex without intravenous contrast administration. CT angiography of the head and neck were performed following the administration of IV contrast. Multiple MIP images in axial, coronal, and sagittal planes and 3D surfaced rendered images were then acquired using the source data. Automated dose lowering techniques and/or adjustment according to patient size were utilized for this examination.COMPARISON: CT head without contrast dated September 13, 2014.FINDINGS: PRECONTRAST CT HEAD: No evidence of acute intracranial hemorrhage or large territorial infarct. There is no midline shift, mass effect or abnormal extra-axial collections.The ventricles, cerebral sulci and basal c isterns are normal.There is mucosal thickening of scattered ethmoid air cells. The remaining paranasal sinuses and mastoid air cells are clear. No depressed calvarial fractures are present. The scalp soft tissues are grossly unremarkable.CTA NECK: No calcification is present at the origin of the common carotid arteries bilaterally. The cervical portions of both common carotid arteries are patent without evidence of hemodynamically significant stenosis nor dissection. The cervical portions of both internal carotid arteries are patent without evidence of hemodynamically significant stenosis. No significant atherosclerotic changes in the vessels of the neck.The right vertebral artery is dominant. There is no evidence of hemodynamically significant stenosis or dissection of the cervical portions of the vertebral arteries.CTA HEAD: Arteries are patent without evidence of hemodynamically significant stenosis. The middle cerebral arteries, anterior cerebral arteries and posterior cerebral arteries are patent without evidence of hemodynamically significant stenosis.The intracranial portions of both vertebral arteries and basilar artery are patent.No aneurysm, arteriovenous malformation, or hemodynamically significant flow stenosis is shown. IMPRESSION: 1. No aneurysm, arteriovenous malformation, or hemodynamically significant flow stenosis. 2. 3. No acute intracranial hemorrhage or evidence of acute infarction.Assessment of stenosis of the internal carotid arteries is based on NASCET criteria.Principal findings were discussed by Dr. Erin Lau with Dr. Clifton by telephone on 07/14/2019 5:29 PM .This document has been electronically signed by Darcy Valdez MD on 07/14/2019 7:11 PM Name Value Range Interpretation Code Description Data [facility](s) Supporting Document(s) ID Date Data Source [id number] 07/14/2019 07:13:23 PM [facility] CT ANGIOGRAPHY HEAD [id number] RESULTInt erpreted by:Dio Colvin, MDCT ANGIOGRAPHY HEAD 11466, CT ANGIOGRAPHY NECK [id number] INDICATION: Evaluate for CVA/occlusion. Aphasia. Bilateral lower extremity weakness.TECHNIQUE: Contiguous axial CT images of the head were acquired from the base of the skull to the vertex without intravenous contrast administration. CT angiography of the head and neck were performed following the administration of IV contrast. Multiple MIP images in axial, coronal, and sagittal planes and 3D surfaced rendered images were then acquired using the source data. Automated dose lowering techniques and/or adjustment according to patient size were utilized for this examination.COMPARISON: CT head without contrast dated September 13, 2014.FINDINGS: PRECONTRAST CT HEAD: No evidence of acute intracranial hemorrhage or large territorial infarct. There is no midline shift, mass effect or abnormal extra-axial collections.The ventricles, cerebral sulci and basal c isterns are normal.There is mucosal thickening of scattered ethmoid air cells. The remaining paranasal sinuses and mastoid air cells are clear. No depressed calvarial fractures are present. The scalp soft tissues are grossly unremarkable.CTA NECK: No calcification is present at the origin of the common carotid arteries bilaterally. The cervical portions of both common carotid arteries are patent without evidence of hemodynamically significant stenosis nor dissection. The cervical portions of both internal carotid arteries are patent without evidence of hemodynamically significant stenosis. No significant atherosclerotic changes in the vessels of the neck.The right vertebral artery is dominant. There is no evidence of hemodynamically significant stenosis or dissection of the cervical portions of the vertebral arteries.CTA HEAD: Arteries are patent without evidence of hemodynamically significant stenosis. The middle cerebral arteries, anterior cerebral arteries and posterior cerebral arteries are patent without evidence of hemodynamically significant stenosis.The intracranial portions of both vertebral arteries and basilar artery are patent.No aneurysm, arteriovenous malformation, or hemodynamically significant flow stenosis is shown. IMPRESSION: 1. No aneurysm, arteriovenous malformation, or hemodynamically significant flow stenosis. 2. 3. No acute intracranial hemorrhage or evidence of acute infarction.Assessment of stenosis of the internal carotid arteries is based on NASCET criteria.Principal findings were discussed by Dr. Erin Lau with Dr. Clifton by telephone on 07/14/2019 5:29 PM .This document has been electronically signed by Darcy Valdez MD on 07/14/2019 7:11 PM Name Value Range Interpretation Code Description Data Hedy rce(s) Supporting Document(s) ID Date Data Source [id number] 07/14/2019 06:49:57 PM [facility] Name Value Range Interpretation Code Description Data [facility](s) Supporting Document(s) [facility] WTLSJy2kTuOYTaZz63/ANClsRWEtj6ZyCRpnOSn1EXsjVNGkW2EtUQR2nR2xHCI6EBrIYoVbCdZuNpCd lbm VwSmiXPgXdQXGwXgyCAoVuFRcgSjmogIQfJY6YwKR0NRVlF59jXQQaXWNiX0RlEFB0Nha+Aa8WJXKieD BmIT0FMboU6Xuvo7i1KL/yFU2Pul5sf5kYWcXMMA2pp45iNc7loh650dnMyZoylDB4lSu908ddKZSvg1 1lQIu6ltgGLbJ3AW7pq8/7ByApxso//2GDWAVBwIq/ i45nHxmZtL61M2iaDeYoTd8LZPWLaIGZcVdP+Wb28svZNtt+k3BPungyTlsklL9HotiOYohNEfa+Zxf/ GriBC8ZHbDtMrQqOYYmXEGFXXCcW2nhsV3rOFsuUTewvnmIvpWkPSIWCR6OJf1faIpWIR+PoZJ5Vt53m 6RQ/nBL7V4ws+hkkIacALimCZEyOKkhKSF4+t/TJBf k0QvI6BIR4aOCCa+uUeWTOeSRXzLlPxiKuscuyiddFK+Gk8JAYfyRns2sSNOPPj3dwrS5Rr20geE/+hr dwAoQOtpNgTcOdaQYySHSAPlbyYilK/Vsd5BLPpjC1zo7Eki+mV3f+TMANYJIgJXi6IUuIxT+8gEFUGC 8njTVsgmwgef4yApYI+f+ZgnvzndTGayvfDdNf/Lms [file] ID Date Data Source [id number] 07/14/2019 06:19:53 PM [facility] XR CHEST FRONTAL ONLY [id number] RESULTI nterpreted by:Anu Sotelo MDINDICATION: Eval heart.TECHNIQUE: Portable AP radiograph of the chest.COMPARISON: 10/01/2014.FINDINGS/IMPRESSION:Mediastinal contour is unchanged. The cardiac silhouette is within normal limits. The lungs are normally aerated. No significant pneumothorax or pleural effusion. Visualized chest wall and osseous structures are unchanged.This document has been electronically signed by Gumaro Patino MD on 07/14/2019 6:17 PM Name Value Range Interpretation Code Description Data Hedy rce(s) Supporting Document(s) ID Date Data Source [id number] 07/14/2019 06:10:35 PM [facility] Name Value Range Interpretation Code Description Data Hedy rce(s) Supporting Document(s) Carboxyhemoglobin/Hemoglobin.total in Blood 3.1 %{Hb} <6.5 [facility] (NOTE)Nonsmokers: < 2.0%Smokers: < 9.0%Toxic: >20.0% ID Date Data Source [id number] 07/14/2019 06:23:27 PM [facility] Name Value Range Interpretation Code Description Data Hedy rce(s) Supporting Document(s) Leukocytes [#/volume] in Blood by Automated count 4.2 10*3/uL 4-10 [facility] Erythrocytes [#/volume] in Blood by Automated count 4.16 10*6/uL 4.6- 6.1 L [facility] Hemoglobin [Mass/volume] in Blood 12.1 g/dL 13.5-18 L [facility] Hematocrit [Volume Fraction] of Blood by Automated count 36.1 % 4 1-53 L [facility] Erythrocyte mean corpuscular volume [Entitic volume] by Auto mated count 86.7 fL 80-96 [facility] Erythrocyte mean corpuscular hemoglobin [Entitic mass] by Automated count 29.0 pg 27-33 [facility] Erythrocyte mean corpuscular hemoglobin concentration [Mass/volume] by Automated count 33.5 g/[facility] 32.0-[facility] width [Ratio] by Automated count 14.5 % 11.5-14.5 [facility] Platelets [#/volume] in Blood by Automated count 247 10*3/uL 150-400 [facility] Differential cell count method - Blood [facility] Neutrophils/100 leukocytes in Blood by Automated count 42 % [facility] Lymphocytes/100 leukocytes in Blood by Automated count 45 % [facility] Monocytes/100 leukocytes in Blood by Automated count 10 % [facility] Eosinophils/100 leukocytes in Blood by Automated count 2 % [facility] Basophils/100 leukocytes in Blood by Automated count 1 % [facility] Neutrophils [#/volume] in Blood by Automated count 1.76 10*3/uL 1.8-7 .0 L [facility] Lymphocytes [#/volume] in Blood by Automated count 1.93 10*3/uL 1.2-4 .0 [facility] Monocytes [#/volume] in Blood by Automated count 0.40 10*3/uL 0-0.8 [facility] Eosinophils [#/volume] in Blood by Automated count 0.08 10*3/uL 0-0.5 [facility] Basophils [#/volume] in Blood by Automated count 0.06 10*3/uL 0-0.2 [facility] Nucleated erythrocytes/100 leukocytes [Ratio] in Blood by Automated count 0 /100{WBCs} 0-0 [facility] ID Date Data Source [id number] 07/14/2019 06:26:35 PM [facility] Value Range Interpretation Code Description Data Hedy rce(s) Supporting Document(s) Prothrombin time (PT) 13.9 s 12.5-14.9 [facility] INR in Platelet poor plasma by Coagulation assay 1.04 [facility] Routine intensity oral anticoagulation I NR is typically 2.0-3.0. Target INR must be clinically individualized. ID Date Data Source [id number] 07/14/2019 06:26:35 PM [facility] Value Range Interpretation Code Description Data Hedy rce(s) Supporting Document(s) aPTT in Platelet poor plasma by Coagulation assay 29.8 s 24.0-34. 0 [facility] ID Date Data Source [id number] 07/14/2019 06:45:24 PM [facility] Value Range Interpretation Code Description Data Hedy rce(s) Supporting Document(s) Acetaminophen [Mass/volume] in Serum or Plasma 10.0-30.0 L [facility] ID Date Data Source [id number] 07/14/2019 06:45:24 PM [facility] Name Value Range Interpretation Code Description Data Hedy rce(s) Supporting Document(s) Ethanol [Mass/volume] in Serum or Plasma Negative [facility] ID Date Data Source [id number] 07/14/2019 06:45:24 PM [facility] Name Value Range Interpretation Code Description Data Hedy rce(s) Supporting Document(s) Thyroxine (T4) free [Mass/volume] in Serum or Plasma 1.56 ng/dL 0.93- 1.70 [facility] ID Date Data Source [id number] 07/14/2019 06:45:24 PM [facility] Name Value Range Interpretation Code Description Data Hedy rce(s) Supporting Document(s) Albumin [Mass/volume] in Serum or Plasma by Bromocresol green (BCG) dye binding method 3.8 g/dL 3.5-5.2 [facility] Bilirubin.total [Mass/volume] in Serum or Plasma 0.4 mg/dL <1.2 [facility] Calcium [Mass/volume] in Serum or Plasma 8.6 mg/dL 8.6-10.0 [facility] Chloride [Moles/volume] in Serum or Plasma 99 mmol/L 98-107 [facility] Creatinine [Mass/volume] in Serum or Plasma 0.98 mg/dL 0.70-1.20 [facility] Glucose [Mass/volume] in Serum or Plasma 143 mg/dL 70-140 H [facility] Alkaline phosphatase [Enzymatic activity/volume] in Serum or Plasma 64 U/L 40-129 [facility] Potassium [Moles/volume] in Serum or Plasma 5.0 mmol/L 3.4-5.1 [facility] Protein [Mass/volume] in Serum or Plasma 6.8 g/dL 6.4-8.3 [facility] Sodium [Moles/volume] in Serum or Plasma 133 mmol/L 136-145 L [facility] Aspartate aminotransferase [Enzymatic activity/volume] in Serum or Plasma 26 U/L <40 [facility] Hemolyzed Urea nitrogen [Mass/volume] in Serum or Plasma 7 mg/dL 6-20 [facility] Osmolality of Serum or Plasma by calculation 276 mosm/kg 275-300 [facility] Creatinine/Urea nitrogen [Mass Ratio] in Serum or Plasma 7 [facility] Bicarbonate [Moles/volume] in Serum 24 mmol/L 22-29 [facility] Alanine aminotransferase [Enzymatic activity/volume] in Seru m or Plasma 23 U/L <41 [facility] Anion gap 3 in Serum or Plasma 10 mmol/L 8-15 [facility] Albumin/Globulin [Mass Ratio] in Serum or Plasma 1.3 [facility] Glomerular filtration rate/1.73 sq M pre dicted among non-blacks [Volume Rate/Area] in Serum or Plasma by Creatinine-based formula (MDRD) >6 0 [facility] Glomerular filtration rate/1.73 sq M pre dicted among blacks [Volume Rate/Area] in Serum or Plasma by Creatinine-based formula (MDRD) >60 [facility] ID Date Data Source [id number] 07/14/2019 06:45:24 PM [facility] Name Value Range Interpretation Code Description Data Hedy rce(s) Supporting Document(s) Salicylates [Mass/volume] in Serum or Plasma 3.0-30.0 L [facility] ID Date Data Source [id number] 07/14/2019 06:45:24 PM [facility] Name Value Range Interpretation Code Description Data Hedy rce(s) Supporting Document(s) Thyrotropin [Units/volume] in Serum or Plasma 0.352 u[IU]/mL 0.270-4. 200 [facility] ID Date Data Source [id number] 07/14/2019 05:51:46 PM [facility] Name Value Range Interpretation Code Description Data Hedy rce(s) Supporting Document(s) Sodium [Moles/volume] in Blood 135 mmol/L 136-145 L [facility] Potassium [Moles/volume] in Blood 5.0 mmol/L 3.4-5.1 [facility] Chloride [Moles/volume] in Blood 98 mmol/L 98-107 [facility] Carbon dioxide, total [Moles/volume] in Blood 31 mmol/L 22-29 H [facility] Calcium.ionized [Moles/volume] in Blood 1.20 mmol/L 1.13-1.32 [facility] Glucose [Mass/volume] in Blood 146 mg/dL 70-140 H [facility] Urea nitrogen [Mass/volume] in Blood 7 mg/dL 6-20 [facility] Creatinine [Mass/volume] in Blood 1.0 mg/dL 0.70-1.20 [facility] Hematocrit [Volume Fraction] of Blood 37 % 41-53 L [facility] Hemoglobin [Mass/volume] in Blood by calculation 12.6 g/dL 13.5-18.0 L [facility] ID Date Data Source [id number] 07/14/2019 05:51:41 PM [facility] Value Range Interpretation Code Description Data Hedy rce(s) Supporting Document(s) pH of Venous blood 7.38 7.36-7.41 [facility] Carbon dioxide [Partial pressure] in Venous blood 51 mmHg 40-45 H [facility] Oxygen [Partial pressure] in Venous blood 24 mmHg [facility] Base excess standard in Venous blood by calculation 4 mmol/L [facility] Oxygen saturation Calculated from oxygen partial pressure in Venous blood 41 % 60-85 L [facility] Lactate [Moles/volume] in Venous blood 1.0 mmol/L 0.5-2.2 [facility] Bicarbonate [Moles/volume] in Venous blood 32 mmol/L [facility] ID Date Data Source [id number] 07/14/2019 05:51:49 PM [facility] Value Range Interpretation Code Description Data Hedy rce(s) Supporting Document(s) Troponin I.cardiac [Mass/volume] in Blood 0.00 ng/mL 0.00-0.08 [facility] ID Date Data Source [id number] 06/28/2019 06:10:00 AM [facility] Value Range Interpretation Code Description Data Hedy rce(s) Supporting Document(s) LAB Glucose,Fingerstick 117 mg/dL 70-110 Above high normal [facility] ID Date Data Source [id number] 06/27/2019 06:42:00 AM [facility] Value Range Interpretation Code Description Data Hedy rce(s) Supporting Document(s) LAB Glucose,Fingerstick 138 mg/dL 70-110 Above high normal [facility] ID Date Data Source [id number] 06/26/2019 04:47:00 AM [facility] Value Range Interpretation Code Description Data Hedy rce(s) Supporting Document(s) LAB Glucose,Fingerstick 137 mg/dL 70-110 Above high normal [facility] ID Date Data Source [id number] 06/25/2019 05:08:00 AM [facility] Value Range Interpretation Code Description Data Hedy rce(s) Supporting Document(s) LAB Glucose,Fingerstick 149 mg/dL 70-110 Above high normal [facility] ID Date Data Source [id number] 06/24/2019 06:56:00 AM [facility] Value Range Interpretation Code Description Data Hedy rce(s) Supporting Document(s) LAB Glucose,Fingerstick 122 mg/dL 70-110 Above high normal [facility] ID Date Data Source [id number] 06/23/2019 07:23:00 AM [facility] Value Range Interpretation Code Description Data Hedy rce(s) Supporting Document(s) LAB Glucose,Fingerstick 119 mg/dL 70-110 Above high normal [facility] ID Date Data Source [id number] 06/22/2019 07:07:00 AM [facility] Value Range Interpretation Code Description Data Hedy rce(s) Supporting Document(s) LAB Glucose,Fingerstick 105 mg/dL 70-110 Normal ( applies to non-numeric results) [facility] ID Date Data Source [id number] 06/21/2019 07:10:00 AM [facility] Value Range Interpretation Code Description Data Hedy rce(s) Supporting Document(s) LAB Glucose,Fingerstick 109 mg/dL 70-110 Normal ( applies to non-numeric results) [facility] ID Date Data Source [id number] 06/20/2019 07:05:00 AM [facility] Value Range Interpretation Code Description Data Hedy rce(s) Supporting Document(s) LAB Glucose,Fingerstick 106 mg/dL 70-110 Normal ( applies to non-numeric results) [facility] ID Date Data Source [id number] 06/19/2019 07:29:00 AM EST [facility] Name Value Range Interpretation Code Description Data Hedy rce(s) Supporting Document(s) LAB Glucose,Fingerstick 111 mg/dL 70-110 Above high normal [facility] ID Date Data Source [id number] 06/18/2019 07:07:00 AM [facility] Name Value Range Interpretation Code Description Data Hedy rce(s) Supporting Document(s) LAB Glucose,Fingerstick 126 mg/dL 70-110 Above high normal [facility] ID Date Data Source [id number] 06/17/2019 06:47:00 AM [facility] Name Value Range Interpretation Code Description Data Hedy rce(s) Supporting Document(s) LAB Glucose,Fingerstick 106 mg/dL 70-110 Normal ( applies to non-numeric results) [facility] ID Date Data Source [id number] 06/16/2019 10:43:00 AM [facility] Name Value Range Interpretation Code Description Data Hedy rce(s) Supporting Document(s) C-Reactive Protein,Wide Range <3.00 Above high normal [facility] ID Date Data Source [id number] 06/16/2019 10:29:00 AM [facility] Name Value Range Interpretation Code Description Data Hedy rce(s) Supporting Document(s) White Blood Count 4.8-10.8 Normal (applies to non-numeri c results) [facility] Red Blood Count 4.35-6.08 Below low normal [facility] Hemoglobin 13.0-17.5 Below low normal [facility] Hematocrit 37.7-51.0 Below low normal [facility] Mean Corpuscular Volume 80-94 Normal (applies to non- numeric results) [facility] Mean Corpuscular Hemoglobin 27.0-33.0 Normal (appli es to non-numeric results) [facility] Mean Corpuscular HGB Conc 32.0-36.0 Normal (applies to no n-numeric results) [facility] Red Cell Distribution Width 11.5-14.5 Normal (appli es to non-numeric results) [facility] Platelet Count 206 X10 3/uL 130-450 Normal (applies to non-numeric results) [facility] Mean Platelet Volume 9.6-13.1 Below low normal [facility] Imm Grans% (AUTO) 0 % 0-2 Normal (applies to non-numeri c results) [facility] Neutrophils % (AUTO) 35 % 40-75 Below low normal [facility] Lymphocytes % (AUTO) 52 % 21-46 Above high normal [facility] Monocytes % (AUTO) 8 % 5-12 Normal (applies to non-numer ic results) [facility] Eosinophils % (AUTO) 4 % 1-5 Normal (applies to non-num jeanc-laude results) [facility] Basophils % (AUTO) 1 % 0-1 Normal (applies to non-numer ic results) [facility] Imm Grans# (AUTO) 0.00-0.50 Normal (applies to non-numeri c results) [facility] Neutrophils # (AUTO) 1.5-8.1 Normal (applies to non-num jean-claude results) [facility] Lymphocytes # (AUTO) 1.0-3.1 Normal (applies to non-num jean-claude results) [facility] Monocytes # (AUTO) 0.2-1.3 Normal (applies to non-numer ic results) [facility] Eosinophils# (AUTO) 0.0-0.5 Normal (applies to non-nume aline results) [facility] Basophils # (AUTO) 0.00-0.10 Normal (applies to non-numer ic results) [facility] ID Date Data Source [id number] 06/16/2019 07:08:[address] [facility] Name Value Range Interpretation Code Description Data Hedy rce(s) Supporting Document(s) LAB Glucose,Fingerstick 95 mg/dL 70-110 Normal (applies t o non-numeric results) [facility] ID Date Data Source [id number] 06/15/2019 07:11:[address] [facility] Name Value Range Interpretation Code Description Data Hedy rce(s) Supporting Document(s) LAB Glucose,Fingerstick 96 mg/dL 70-110 Normal (applies t o non-numeric results) [facility] ID Date Data Source [id number] 06/14/2019 06:50:00 AM [facility] Value Range Interpretation Code Description Data Hedy rce(s) Supporting Document(s) LAB Glucose,Fingerstick 114 mg/dL 70-110 Above high normal [facility] ID Date Data Source [id number] 06/13/2019 05:32:00 AM [facility] Value Range Interpretation Code Description Data Hedy rce(s) Supporting Document(s) LAB Glucose,Fingerstick 126 mg/dL 70-110 Above high normal [facility] ID Date Data Source [id number] 06/12/2019 05:44:00 AM [facility] Value Range Interpretation Code Description Data Hedy rce(s) Supporting Document(s) LAB Glucose,Fingerstick 105 mg/dL 70-110 Normal ( applies to non-numeric results) [facility] ID Date Data Source [id number] 06/11/2019 07:30:00 AM [facility] Value Range Interpretation Code Description Data Hedy rce(s) Supporting Document(s) LAB Glucose,Fingerstick 102 mg/dL 70-110 Normal ( applies to non-numeric results) [facility] ID Date Data Source [id number] 06/10/2019 07:34:00 AM [facility] Value Range Interpretation Code Description Data Hedy rce(s) Supporting Document(s) LAB Glucose,Fingerstick 115 mg/dL 70-110 Above high normal [facility] ID Date Data Source [id number] 06/09/2019 07:12:00 AM [facility] Value Range Interpretation Code Description Data Hedy rce(s) Supporting Document(s) LAB Glucose,Fingerstick 118 mg/dL 70-110 Above high normal [facility] ID Date Data Source [id number] 06/08/2019 07:12:00 AM [facility] Value Range Interpretation Code Description Data Hedy rce(s) Supporting Document(s) LAB Glucose,Fingerstick 100 mg/dL 70-110 Normal ( applies to non-numeric results) [facility] ID Date Data Source [id number] 06/07/2019 06:57:00 AM [facility] Value Range Interpretation Code Description Data Hedy rce(s) Supporting Document(s) LAB Glucose,Fingerstick 133 mg/dL 70-110 Above high normal [facility] ID Date Data Source [id number] 06/06/2019 05:03:00 PM [facility] Value Range Interpretation Code Description Data Hedy rce(s) Supporting Document(s) LAB Glucose,Fingerstick 110 mg/dL 70-110 Normal ( applies to non-numeric results) [facility] ID Date Data Source [id number] 06/06/2019 07:08:00 AM [facility] Value Range Interpretation Code Description Data Hedy rce(s) Supporting Document(s) LAB Glucose,Fingerstick 111 mg/dL 70-110 Above high normal [facility] ID Date Data Source [id number] 06/05/2019 04:39:00 PM [facility] Value Range Interpretation Code Description Data Hedy rce(s) Supporting Document(s) LAB Glucose,Fingerstick 160 mg/dL 70-110 Above high normal [facility] ID Date Data Source [id number] 06/05/2019 06:56:00 AM [facility] Value Range Interpretation Code Description Data Hedy rce(s) Supporting Document(s) LAB Glucose,Fingerstick 104 mg/dL 70-110 Normal ( applies to non-numeric results) [facility] ID Date Data Source [id number] 06/04/2019 07:32:00 AM [facility] Value Range Interpretation Code Description Data Hedy rce(s) Supporting Document(s) LAB Glucose,Fingerstick 110 mg/dL 70-110 Normal ( applies to non-numeric results) [facility] ID Date Data Source [id number] 06/03/2019 06:58:00 AM [facility] Value Range Interpretation Code Description Data Hedy rce(s) Supporting Document(s) LAB Glucose,Fingerstick 119 mg/dL 70-110 Above high normal [facility] ID Date Data Source [id number] 06/02/2019 04:42:00 PM [facility] Name Value Range Interpretation Code Description Data Hedy rce(s) Supporting Document(s) LAB Glucose,Fingerstick 130 mg/dL 70-110 Above high normal [facility] ID Date Data Source [id number] 06/02/2019 07:01:00 AM [facility] Name Value Range Interpretation Code Description Data Hedy rce(s) Supporting Document(s) LAB Glucose,Fingerstick 114 mg/dL 70-110 Above high normal [facility] ID Date Data Source [id number] 06/03/2019 02:50:00 PM [facility] Name: AKBAR FLORES : 1965 Age/Sex: 54M Ordering Provider: Yulia LAMB Med Rec #: [id number] Reg Status:ADM IN Room #: 130-2 Date of Service: 06/02/19 Report Number: [id number] cc: Yulia LAMB; Deneen Rosario MD Send Report To: Reason for exam: heart failure SINUS RHYTHM NORMAL ECG Physician Raw Hide Trimmer: Dr. Anthony Guallpa M.D. ECG HEART RATE: 82 /min ECG RR INTERVAL: 731 ms ECG P DURATION: 110 ms ECG QRS DURATION: 82 ms ECG TX INTERVAL: 165 ms ECG QT INTERVAL: 356 ms ECG QTC INTERVAL: 394 ms Q-T dispersion: ms ECG P AXIS: 37 deg ECG QRS AXIS: 15 deg ECG T AXIS: 30 deg REPORT SIGNATURE ON FILE 06/03/19 1450 Reported By: Anthony Guallpa MD <<Signature on File>> Exam Date/Time: 06/02/19 0806 Order #: [id number] Dictation Date/Time: 06/03/191449 Transcribed Date/Time: 06/03/191449 Paper Guillotine Operator: [email or web address] Name Value Range Interpretation Code Description Data Hedy rce(s) Supporting Document(s) ID Date Data Source [id number] 06/01/2019 05:44:00 PM [facility] Name Value Range Interpretation Code Description Data Hedy rce(s) Supporting Document(s) LAB Glucose,Fingerstick 241 mg/dL 70-110 Above high normal [facility] ID Date Data Source [id number] 06/02/2019 04:48:00 PM [facility] Name Value Range Interpretation Code Description Data [facility] rce(s) Supporting Document(s) Hepatitis A Ab,IgM result Negative Normal (applies to no n-numeric results) [facility] Result does not exclude the possibility of exposure to hepatitis A virus. Antibody level during early infection stage may be below the limit of detection of the assay. Test Performed by: [facility] [address] [place] [address] Podiatric Medicine Professor: Curt Weber M.D. Ph.D.; CLIA# [id number] ID Date Data Source [id number] 06/01/2019 12:59:00 PM [facility] Name Value Range Interpretation Code Description Data [facility] rce(s) Supporting Document(s) Sodium 140 mmol/L 137-145 Normal (applies to non-numeric resul ts) [facility] Potassium 3.5-5.1 Normal (applies to non-numeric resul ts) [facility] Chloride 106 mmol/L 98-112 Normal (applies to non-numeric resul ts) [facility] Carbon Dioxide CO2 22.0-33.0 Normal (applies to non-numer ic results) [facility] Anion Gap 4.0-11.0 Normal (applies to non-numeric resul ts) [facility] BUN 8 mg/dL 9-20 Below low normal [facility] Creatinine 0.80-1.50 Normal (applies to non-numeric resul ts) [facility] GFR 77 mL/min >60 Normal (applies to non-numeric resul ts) [facility] Result based on MDRD formula. Glucose Level 116 mg/dL 74-99 Above high normal [facility] The reference range is only applicable w hen fasting. Calcium-Uncorrected 8.4-10.2 Normal (applies to non-nume aline results) [facility] Corrected Calcium 8.4-10.2 Normal (applies to non-numeri c results) [facility] Bilirubin,Total 0.2-1.3 Normal (applies to non-numeric results) [facility] Bilirubin,Direct 0.0-0.3 Normal (applies to non-numeric results) [facility] SGOT(AST) 13 U/L 17-59 Below low normal [facility] SGPT(ALT) 21 U/L 21-72 Normal (applies to non-numeric resul ts) [facility] Alkaline Phosphatase 86 U/L 38-126 Normal (applies to non-num jean-claude results) [facility] can increase Alkaline Phosp le vels up to 2 times the normal adult value. Normal values for children and adolescents are 2 to 3 times the normal adult value. CPK 207 U/L 39-308 Normal (applies to non-numeric resul ts) [facility] Total Protein 6.3-8.2 Normal (applies to non-numeric re sults) [facility] Albumin 3.5-5.0 Normal (applies to non-numeric resul ts) [facility] Thyroid Stimulate Hormone TSH 0.358-3.740 No rmal (applies to non-numeric results) [facility] ID Date Data Source [id number] 06/01/2019 12:59:[address] [facility] Name Value Range Interpretation Code Description Data Hedy rce(s) Supporting Document(s) Magnesium 1.80-2.40 Normal (applies to non-numeric resul ts) [facility] ID Date Data Source [id number] 06/01/2019 12:59:[address] [facility] Name Value Range Interpretation Code Description Data Hedy rce(s) Supporting Document(s) C-Reactive Protein,Wide Range <3.00 Above high normal [facility] ID Date Data Source [id number] 06/01/2019 12:06:00 PM EST [facility] Name Value Range Interpretation Code Description Data Hedy rce(s) Supporting Document(s) White Blood Count 4.8-10.8 Normal (applies to non-numeri c results) [facility] Red Blood Count 4.35-6.08 Below low normal [facility] Hemoglobin 13.0-17.5 Below low normal [facility] Hematocrit 37.7-51.0 Below low normal [facility] Mean Corpuscular Volume 80-94 Below low normal [facility] Mean Corpuscular Hemoglobin 27.0-33.0 Normal (appli es to non-numeric results) [facility] Mean Corpuscular HGB Conc 32.0-36.0 Normal (applies to no n-numeric results) [facility] Red Cell Distribution Width 11.5-14.5 Normal (appli es to non-numeric results) [facility] Platelet Count 226 X10 3/uL 130-450 Normal (applies to non-numeric results) [facility] Mean Platelet Volume 9.6-13.1 Below low normal Ca [facility] Imm Grans% (AUTO) 0.0-2.0 Normal (applies to non-numeri c results) [facility] Neutrophils % (AUTO) 43.0-75.0 Normal (applies to non-num jean-claude results) [facility] Lymphocytes % (AUTO) 20.5-45.5 Normal (applies to non-num jean-claude results) [facility] Monocytes % (AUTO) 5.5-11.7 Normal (applies to non-numer ic results) [facility] Eosinophils % (AUTO) 0.7-4.6 Normal (applies to non-num jean-claude results) [facility] Basophils % (AUTO) 0.2-1.2 Normal (applies to non-numer ic results) [facility] Imm Grans# (AUTO) 0.00-0.50 Normal (applies to non-numeri c results) [facility] Neutrophils # (AUTO) 1.90-7.00 Normal (applies to non-num jean-claude results) [facility] Lymphocytes # (AUTO) 1.30-3.10 Above high normal [facility] Monocytes # (AUTO) 0.40-0.70 Normal (applies to non-numer ic results) [facility] Eosinophils# (AUTO) 0.00-0.30 Above high normal [facility] Basophils # (AUTO) 0.00-0.10 Normal (applies to non-numer ic results) [facility] ID Date Data Source [id number] 06/01/2019 08:47:00 AM [facility] Name Value Range Interpretation Code Description Data Hedy rce(s) Supporting Document(s) LAB Glucose,Fingerstick 105 mg/dL 70-110 Normal ( applies to non-numeric results) [facility] ID Date Data Source [id number] 06/01/2019 12:08:00 PM [facility] Name: AKBAR FLORES : 1965 Age/Sex: 54M Ordering Provider: Yulia LAMB Med Rec #: [id number] Reg Status: ADM IN Room #: 124-2 Date of Service: 06/01/19 Report Number: [id number] cc:Yulia LAMB; PCP None Send Report To: [id number] XRP/XR Chest 2 View [Pa & Lat] Reason for exam: positive ppd FINDINGS: The cardiac and mediastinal silhouettes appear normal and the lungs are clear. The bones and soft tissues are normal. The upper abdomen is unremarkable. IMPRESSION: No acute disease identifiable. Fluoroscopy time in seconds: 0 Number of Exposures: Time Portable Image Performed: Contrast Agent in ml: Method of Administration: REPORT SIGNATURE ON FILE Reported By: Juan Antonio Khan MD <Electronically signed by Chetan Khan MD> 06/01/19 1222 Dictation Date/Time: 06/01/19 1030 Transcribed Date/Time: 06/01/19 1208 Paper Guillotine Operator: MARGARET Name Value Range Interpretation Code Description Data Hedy rce(s) Supporting Document(s) ID Date Data Source [id number] 06/08/2019 11:23:00 AM [facility] Name Value Range Interpretation Code Description Data Hedy rce(s) Supporting Document(s) Cannabinoids Confirm,Ur result . Very abnor mal (applies to non-numeric units [facility] Carboxy THC GC/MS Conf 14 ng/mL Cutoff=10 01 Performed at: [facility] [address] [place], [place] [id number] Podiatric Medicine Professor: Aide Red MD, Phone: [phone] ID Date Data Source [id number] 05/31/2019 10:49:00 AM [facility] Name Value Range Interpretation Code Description Data Hedy rce(s) Supporting Document(s) Color,Urine Yellow Normal (applies to non-numeric resu lts) [facility] Clarity,Urine Clear Normal (applies to non-numeric re sults) [facility] Specific Garita,Urine 1.001-1.030 Normal (applies to non- numeric results) [facility] PH,Urine 5.0-8.0 Normal (applies to non-numeric resul ts) [facility] Protein,Urine Negative Normal (applies to non-numeric re sults) [facility] Glucose,Urine (UA) Negative Normal (applies to non-numer ic results) [facility] Ketones,Urine Negative Normal (applies to non-numeric re sults) [facility] Blood,Urine Negative Normal (applies to non-numeric resu lts) [facility] Bilirubin,Urine Negative Normal (applies to non-numeric results) [facility] Urobilinogen,Urine Norm 0.2-1 Normal (applies to non-numer ic results) [facility] Leukocyte Esterase,Urine Negative Normal (applies to non -numeric results) [facility] Nitrite,Urine Negative Normal (applies to non-numeric re sults) [facility] ID Date Data Source [id number] 05/31/2019 11:06:00 AM [facility] Name Value Range Interpretation Code Description Data Hedy rce(s) Supporting Document(s) Opiate Screen,Urine Negative Normal (applies to non-nume aline results) [facility] Amphetamine Screen,Urine Negative [facility] If a positive quantitative confirmation is desired, an additional order must be submitted and the specimen will be sent out to a reference lab. Benzodiazepines Scrn,Ur result Negative N ormal (applies to non-numeric results) [facility] Cocaine Screen,Urine Negative [facility] If a positive quantitative confirmation is desired, an additional order must be submitted and the specimen will be sent out to a reference lab. Methadone Screen,Urine Negative Normal (applies to non-n umeric results) [facility] Cannabinoid Screen, Ur Negative [facility] If a positive quantitative confirmation is desired, an additional order must be submitted and the specimen will be sent out to a reference lab. Therapeutic Drug Ranges for Emergency and Rehabilitation Threshold Levels (ng/mL) Cocaine 300 Opiates 300 Cannabinoids 50 Barbiturates 200 Benzodiazepine 200 Methadone 300 Amphetamines 1000 Emergency toxicology analytes exceeding the therapeutic threshold levels are positive. The confirmation of all positive drug levels may be confirmed at the request of the attending physician. Results are to be used for medical treatment purposes only. Procedure Social History Code Duration Value Status Description Data Source(s ) Smoking 06/25/2020 12:00:00 AM EST Unknown if ever smoked comp leted Unknown if ever smoked [facility] ([facility]) Smoking 06/19/2020 12:00:00 AM EST Unknown if ever smoked comp leted Unknown if ever smoked [facility] ([facility]) Smoking 06/05/2020 12:00:00 AM EST Unknown if ever smoked comp leted Unknown if ever smoked [facility] ([facility]) Smoking 05/09/2020 12:00:00 AM EST Unknown if ever smoked comp leted Unknown if ever smoked [facility] ([facility]) Smoking 07/20/2019 12:00:00 AM EST Unknown if ever smoked comp leted Unknown if ever smoked [facility] ([facility]) Alcohol intake 07/15/2019 12:00:00 AM EST Current drinker of [place] (finding) completed Current drinker of alcohol (finding) [facility] Smoking 07/15/2019 12:00:00 AM EST Former smoker completed Former smoker [facility] Alcohol intake 07/15/2019 12:00:00 AM EST Current drinker of [place] (finding) completed Current drinker of alcohol (finding) [facility] Smoking 07/01/2019 12:00:00 AM EST Unknown if ever smoked comp leted Unknown if ever smoked [facility] ([facility]) Smoking 06/10/2019 12:00:00 AM EST Unknown if ever smoked comp leted Unknown if ever smoked [facility] ([facility]) Smoking 05/31/2019 12:00:00 AM EST Unknown if ever smoked comp leted Unknown if ever smoked [facility] ([facility]) Vital Signs ID Date Data Source UNK Name Value Range Interpretation Code Description Data Source(s) Body weight 4979.2 [oz_av] 4979.2 [oz_av] ATHEN A ([facility]) Systolic blood pressure 136 mm[Hg] 136 mm[Hg] A THENA ([facility]) Body mass index (BMI) [Ratio] 40 kg/m2 40 kg/ m2 MARQUIS ([facility]) Body height 74 [in_i] 74 [in_i] MARQUIS ([facility]) Diastolic blood pressure 92 mm[Hg] 92 mm[Hg] MARQUIS ([facility]) ID Date Data Source [id number] 07/06/2020 11:01:[address] [facility] Name Value Range Interpretation Code Description Data Source(s) Weight (Calculated Kilograms) 122.47 122.47 [facility] Height (Calculated Centimeters) 187.96 187. 96 [facility] Body Mass Index (BMI) 34.7 34.7 [facility] Weight (Calculated Kilograms) 122.47 122.47 [facility] Height (Calculated Centimeters) 187.96 187. 96 [facility] Body Mass Index (BMI) 34.7 34.7 [facility] ID Date Data Source [id number] 07/06/2020 11:01:00 AM EST [facility] Name Value Range Interpretation Code Description Data Source(s) Weight (Calculated Kilograms) 122.47 122.47 [facility] Height (Calculated Centimeters) 187.96 187. 96 [facility] Body Mass Index (BMI) 34.7 34.7 [facility] Weight (Calculated Kilograms) 122.47 122.47 [facility] Height (Calculated Centimeters) 187.96 187. 96 [facility] Body Mass Index (BMI) 34.7 34.7 [facility] ID Date Data Source [id number] 07/06/2020 11:01:00 AM EST [facility] Name Value Range Interpretation Code Description Data Source(s) Weight (Calculated Kilograms) 122.47 122.47 [facility] Height (Calculated Centimeters) 187.96 187. 96 [facility] Body Mass Index (BMI) 34.7 34.7 [facility] Weight (Calculated Kilograms) 122.47 122.47 [facility] Height (Calculated Centimeters) 187.96 187. 96 [facility] Body Mass Index (BMI) 34.7 34.7 [facility] ID Date Data Source [id number] 07/06/2020 11:22:00 AM [facility] Name Value Range Interpretation Code Description Data Source(s) Weight (Calculated Kilograms) 122.47 122.47 [facility] Height (Calculated Centimeters) 187.96 187. 96 [facility] Body Mass Index (BMI) 34.7 34.7 [facility] Weight (Calculated Kilograms) 122.47 122.47 [facility] Height (Calculated Centimeters) 187.96 187. 96 [facility] Body Mass Index (BMI) 34.7 34.7 [facility] Weight (Calculated Kilograms) 122.47 122.47 [facility] Height (Calculated Centimeters) 187.96 187. 96 [facility] Body Mass Index (BMI) 34.[address] [facility] ID Date Data Source [id number] 07/06/2020 11:01:00 AM EST [facility] Name Value Range Interpretation Code Description Data Source(s) Weight (Calculated Kilograms) 122.47 122.47 [facility] Height (Calculated Centimeters) 187.96 187. 96 [facility] Body Mass Index (BMI) 34.7 34.7 [facility] Weight (Calculated Kilograms) 122.47 122.47 [facility] Height (Calculated Centimeters) 187.96 187. 96 [facility] Body Mass Index (BMI) 34.7 34.7 [facility] Weight (Calculated Kilograms) 122.47 122.47 [facility] Height (Calculated Centimeters) 187.96 187. 96 [facility] Body Mass Index (BMI) 34.7 34.7 [facility] Weight (Calculated Kilograms) 122.47 122.47 [facility] Height (Calculated Centimeters) 187.96 187. 96 [facility] Body Mass Index (BMI) 34.7 34.7 [facility] ID Date Data Source [id number] 07/06/2020 11:01:00 AM [facility] Name Value Range Interpretation Code Description Data Source(s) Weight (Calculated Kilograms) 122.47 122.47 [facility] Height (Calculated Centimeters) 187.96 187. 96 [facility] Body Mass Index (BMI) 34.7 34.7 [facility] ID Date Data Source [id number] 07/06/2020 11:01:00 AM [facility] Name Value Range Interpretation Code Description Data Source(s) Weight (Calculated Kilograms) 122.47 122.47 [facility] Height (Calculated Centimeters) 187.96 187. 96 [facility] Body Mass Index (BMI) 34.7 34.7 [facility] Weight (Calculated Kilograms) 122.47 122.47 [facility] Height (Calculated Centimeters) 187.96 187. 96 [facility] Body Mass Index (BMI) 34.7 34.7 [facility] Weight (Calculated Kilograms) 122.47 122.47 [facility] Height (Calculated Centimeters) 187.96 187. 96 [facility] Body Mass Index (BMI) 34.7 34.7 [facility] Weight (Calculated Kilograms) 122.47 122.47 [facility] Height (Calculated Centimeters) 187.96 187. 96 [facility] Body Mass Index (BMI) 34.[address] [facility] ID Date Data Source [id number] 07/06/2020 11:01:00 AM [facility] Name Value Range Interpretation Code Description Data Source(s) Weight (Calculated Kilograms) 122.47 122.47 [facility] Height (Calculated Centimeters) 187.96 187. 96 [facility] Body Mass Index (BMI) 34.7 34.7 [facility] Weight (Calculated Kilograms) 122.47 122.47 [facility] Height (Calculated Centimeters) 187.96 187. 96 [facility] Body Mass Index (BMI) 34.[address] [facility] ID Date Data Source [id number] 07/06/2020 11:01:00 AM [facility] Name Value Range Interpretation Code Description Data Source(s) Weight (Calculated Kilograms) 122.47 122.47 [facility] Height (Calculated Centimeters) 187.96 187. 96 [facility] Body Mass Index (BMI) 34.7 34.7 [facility] Weight (Calculated Kilograms) 122.47 122.47 [facility] Height (Calculated Centimeters) 187.96 187. 96 [facility] Body Mass Index (BMI) 34.7 34.7 [facility] ID Date Data Source [id number] 03/07/2020 12:21:00 AM [facility] Name Value Range Interpretation Code Description Data Source(s) Weight (Calculated Kilograms) 122.47 122.47 [facility] Height (Calculated Centimeters) 187.96 187. 96 [facility] Body Mass Index (BMI) 34.7 34.7 [facility] Weight (Calculated Kilograms) 122.47 122.47 [facility] Height (Calculated Centimeters) 187.96 187. 96 [facility] Body Mass Index (BMI) 34.7 34.7 [facility] ID Date Data Source [id number] 02/29/2020 12:34:00 AM [facility] Hospital Name Value Range Interpretation Code Description Data Source(s) Weight (Calculated Kilograms) 122.47 122.47 [facility] Height (Calculated Centimeters) 187.96 187. 96 [facility] Body Mass Index (BMI) 34.7 34.7 [facility] Weight (Calculated Kilograms) 122.47 122.47 [facility] Height (Calculated Centimeters) 187.96 187. 96 [facility] Body Mass Index (BMI) 34.7 34.7 [facility] ID Date Data Source [id number] 02/28/2020 12:26:00 AM EDT [facility] Name Value Range Interpretation Code Description Data Source(s) Weight (Calculated Kilograms) 122.47 122.47 [facility] Height (Calculated Centimeters) 187.96 187. 96 [facility] Body Mass Index (BMI) 34.7 34.7 [facility] Weight (Calculated Kilograms) 122.47 122.47 [facility] Height (Calculated Centimeters) 187.96 187. 96 [facility] Body Mass Index (BMI) 34.7 34.7 [facility] ID Date Data Source [id number] 02/28/2020 06:07:00 AM EDT [facility] Name Value Range Interpretation Code Description Data Source(s) Weight (Calculated Kilograms) 122.47 122.47 [facility] Height (Calculated Centimeters) 187.96 187. 96 [facility] Body Mass Index (BMI) 34.7 34.7 [facility] Weight (Calculated Kilograms) 122.47 122.47 [facility] Height (Calculated Centimeters) 187.96 187. 96 [facility] Body Mass Index (BMI) 34.7 34.7 [facility] Weight (Calculated Kilograms) 122.47 122.47 [facility] Height (Calculated Centimeters) 187.96 187. 96 [facility] Body Mass Index (BMI) 34.7 34.7 [facility] Weight (Calculated Kilograms) 122.47 122.47 [facility] Height (Calculated Centimeters) 187.96 187. 96 [facility] Body Mass Index (BMI) 34.7 34.7 [facility] ID Date Data Source [id number] 01/25/2020 11:18:00 AM EDT [facility] Name Value Range Interpretation Code Description Data Source(s) Weight (Calculated Kilograms) 122.47 122.47 [facility] Height (Calculated Centimeters) 187.96 187. 96 [facility] Body Mass Index (BMI) 34.7 34.7 [facility] Weight (Calculated Kilograms) 122.47 122.47 [facility] Height (Calculated Centimeters) 187.96 187. 96 [facility] Body Mass Index (BMI) 34.7 34.7 [facility] Weight (Calculated Kilograms) 122.47 122.47 [facility] Height (Calculated Centimeters) 187.96 187. 96 [facility] Body Mass Index (BMI) 34.7 34.7 [facility] Weight (Calculated Kilograms) 122.47 122.47 [facility] Height (Calculated Centimeters) 187.96 187. 96 [facility] Body Mass Index (BMI) 34.7 34.7 [facility] ID Date Data Source [id number] 01/10/2020 12:25:00 AM EDT [facility] Name Value Range Interpretation Code Description Data Source(s) Weight (Calculated Kilograms) 122.47 122.47 [facility] Height (Calculated Centimeters) 187.96 187. 96 [facility] Body Mass Index (BMI) 34.7 34.7 [facility] Weight (Calculated Kilograms) 122.47 122.47 [facility] Height (Calculated Centimeters) 187.96 187. 96 [facility] Body Mass Index (BMI) 34.7 34.7 [facility] ID Date Data Source [id number] 12/28/2019 12:31:00 AM EDT [facility] Name Value Range Interpretation Code Description Data Source(s) Weight (Calculated Kilograms) 122.47 122.47 [facility] Height (Calculated Centimeters) 187.96 187. 96 [facility] Body Mass Index (BMI) 34.7 34.7 [facility] Weight (Calculated Kilograms) 122.47 122.47 [facility] Height (Calculated Centimeters) 187.96 187. 96 [facility] Body Mass Index (BMI) 34.7 34.7 [facility] ID Date Data Source [id number] 12/29/2019 02:16:00 PM EDT [facility] Name Value Range Interpretation Code Description Data Source(s) Weight (Calculated Kilograms) 122.47 122.47 [facility] Height (Calculated Centimeters) 187.96 187. 96 [facility] Body Mass Index (BMI) 34.7 34.7 [facility] Weight (Calculated Kilograms) 122.47 122.47 [facility] Height (Calculated Centimeters) 187.96 187. 96 [facility] Body Mass Index (BMI) 34.7 34.7 [facility] Weight (Calculated Kilograms) 122.47 122.47 [facility] Height (Calculated Centimeters) 187.96 187. 96 [facility] Body Mass Index (BMI) 34.7 34.7 [facility] ID Date Data Source [id number] 12/21/2019 12:54:00 PM EDT [facility] Name Value Range Interpretation Code Description Data Source(s) Weight (Calculated Kilograms) 122.47 122.47 [facility] Height (Calculated Centimeters) 187.96 187. 96 [facility] Body Mass Index (BMI) 34.7 34.7 [facility] Weight (Calculated Kilograms) 122.47 122.47 [facility] Height (Calculated Centimeters) 187.96 187. 96 [facility] Body Mass Index (BMI) 34.7 34.7 [facility] Weight (Calculated Kilograms) 122.47 122.47 [facility] Height (Calculated Centimeters) 187.96 187. 96 [facility] Body Mass Index (BMI) 34.7 34.7 [facility] ID Date Data Source [id number] 12/21/2019 10:24:00 AM EDT [facility] Name Value Range Interpretation Code Description Data Source(s) Weight (Calculated Kilograms) 122.47 122.47 [facility] Height (Calculated Centimeters) 187.96 187. 96 [facility] Body Mass Index (BMI) 34.7 34.7 [facility] Weight (Calculated Kilograms) 122.47 122.47 [facility] Height (Calculated Centimeters) 187.96 187. 96 [facility] Body Mass Index (BMI) 34.7 34.7 [facility] Weight (Calculated Kilograms) 122.47 122.47 [facility] Height (Calculated Centimeters) 187.96 187. 96 [facility] Body Mass Index (BMI) 34.7 34.7 [facility] ID Date Data Source [id number] 12/16/2019 08:48:00 AM EDT [facility] Name Value Range Interpretation Code Description Data Source(s) Weight (Calculated Kilograms) 122.47 122.47 [facility] Height (Calculated Centimeters) 187.96 187. 96 [facility] Body Mass Index (BMI) 34.7 34.7 [facility] Weight (Calculated Kilograms) 122.47 122.47 [facility] Height (Calculated Centimeters) 187.96 187. 96 [facility] Body Mass Index (BMI) 34.7 34.7 [facility] Weight (Calculated Kilograms) 122.47 122.47 [facility] Height (Calculated Centimeters) 187.96 187. 96 [facility] Body Mass Index (BMI) 34.7 34.7 [facility] Weight (Calculated Kilograms) 122.47 122.47 [facility] Height (Calculated Centimeters) 187.96 187. 96 [facility] Body Mass Index (BMI) 34.[address] [facility] ID Date Data Source [id number] 07/06/2020 11:01:00 AM EST [facility] Name Value Range Interpretation Code Description Data Source(s) Weight (Calculated Kilograms) 122.47 122.47 [facility] Height (Calculated Centimeters) 187.96 187. 96 [facility] Body Mass Index (BMI) 34.7 34.7 [facility] ID Date Data Source [id number] 12/02/2019 08:27:00 AM EDT [facility] Name Value Range Interpretation Code Description Data Source(s) Weight (Calculated Kilograms) 122.47 122.47 [facility] Height (Calculated Centimeters) 187.96 187. 96 [facility] Body Mass Index (BMI) 34.7 34.7 [facility] Weight (Calculated Kilograms) 122.47 122.47 [facility] Height (Calculated Centimeters) 187.96 187. 96 [facility] Body Mass Index (BMI) 34.7 34.7 [facility] Weight (Calculated Kilograms) 122.47 122.47 [facility] Height (Calculated Centimeters) 187.96 187. 96 [facility] Body Mass Index (BMI) 34.7 34.7 [facility] ID Date Data Source [id number] 11/25/2019 09:17:00 AM EDT [facility] Name Value Range Interpretation Code Description Data Source(s) Weight (Calculated Kilograms) 122.47 122.47 [facility] Height (Calculated Centimeters) 187.96 187. 96 [facility] Body Mass Index (BMI) 34.7 34.7 [facility] Weight (Calculated Kilograms) 122.47 122.47 [facility] Height (Calculated Centimeters) 187.96 187. 96 [facility] Body Mass Index (BMI) 34.[address] [facility] ID Date Data Source [id number] 07/06/2020 11:01:00 AM [facility] Name Value Range Interpretation Code Description Data Source(s) Weight (Calculated Kilograms) 122.47 122.47 [facility] Height (Calculated Centimeters) 187.96 187. 96 [facility] Body Mass Index (BMI) 34.7 34.7 [facility] ID Date Data Source [id number] 11/08/2019 10:57:00 AM EDT [facility] Name Value Range Interpretation Code Description Data Source(s) Weight (Calculated Kilograms) 122.47 122.47 [facility] Height (Calculated Centimeters) 187.96 187. 96 [facility] Body Mass Index (BMI) 34.7 34.7 [facility] Weight (Calculated Kilograms) 122.47 122.47 [facility] Height (Calculated Centimeters) 187.96 187. 96 [facility] Body Mass Index (BMI) 34.7 34.7 [facility] ID Date Data Source [id number] 11/03/2019 09:47:00 AM EDT [facility] Name Value Range Interpretation Code Description Data Source(s) Weight (Calculated Kilograms) 122.47 122.47 [facility] Height (Calculated Centimeters) 187.96 187. 96 [facility] Body Mass Index (BMI) 34.7 34.7 [facility] Weight (Calculated Kilograms) 122.47 122.47 [facility] Height (Calculated Centimeters) 187.96 187. 96 [facility] Body Mass Index (BMI) 34.7 34.7 [facility] ID Date Data Source [id number] 11/03/2019 08:36:00 AM EDT [facility] Name Value Range Interpretation Code Description Data Source(s) Weight (Calculated Kilograms) 122.47 122.47 [facility] Height (Calculated Centimeters) 187.96 187. 96 [facility] Body Mass Index (BMI) 34.7 34.7 [facility] Weight (Calculated Kilograms) 122.47 122.47 [facility] Height (Calculated Centimeters) 187.96 187. 96 [facility] Body Mass Index (BMI) 34.7 34.7 [facility] ID Date Data Source [id number] 11/01/2019 12:06:00 PM EDT [facility] Name Value Range Interpretation Code Description Data Source(s) Weight (Calculated Kilograms) 122.47 122.47 [facility] Height (Calculated Centimeters) 187.96 187. 96 [facility] Body Mass Index (BMI) 34.7 34.7 [facility] Weight (Calculated Kilograms) 122.47 122.47 [facility] Height (Calculated Centimeters) 187.96 187. 96 [facility] Body Mass Index (BMI) 34.7 34.7 [facility] ID Date Data Source [id number] 07/06/2020 11:01:00 AM EST [facility] Name Value Range Interpretation Code Description Data Source(s) Weight Measurement Method 1 1 [facility] Weight (Calculated Kilograms) 122.47 122.47 [facility] Weight 4528.0 4528.0 [facility] Temperature Source 7 7 [facility] Temperature 97.9 97.9 [facility] Respiratory Effort 1 1 [facility] Respiratory Rate 17 17 [facility] Pulse Assessment Method 4 4 [facility] Pulse Rate 88 88 [facility] Height (Calculated Centimeters) 187.96 187. 96 [facility] Height 74 74 [facility] Blood Pressure 137/82 137/82 [facility] Body Mass Index (BMI) 34.7 34.7 [facility] Weight Measurement Method 1 1 [facility] Weight (Calculated Kilograms) 122.47 122.47 [facility] Weight 4528.0 4528.0 [facility] Temperature Source 7 7 [facility] Temperature 97.9 97.9 [facility] Respiratory Effort 1 1 [facility] Respiratory Rate 17 17 [facility] Pulse Assessment Method 4 4 [facility] Pulse Rate 88 88 [facility] Height (Calculated Centimeters) 187.96 187. 96 [facility] Height 74 74 [facility] Blood Pressure 137/82 137/82 [facility] Body Mass Index (BMI) 34.7 34.7 [facility] Weight Measurement Method 1 1 [facility] Weight (Calculated Kilograms) 122.47 122.47 [facility] Weight 4528.0 4528.0 [facility] Temperature Source 7 7 [facility] Temperature 97.9 97.9 [facility] Respiratory Effort 1 1 [facility] Respiratory Rate 17 17 [facility] Pulse Assessment Method 4 4 [facility] Pulse Rate 88 88 [facility] Height (Calculated Centimeters) 187.96 187. 96 [facility] Height 74 74 [facility] Blood Pressure 137/82 137/82 [facility] Body Mass Index (BMI) 34.7 34.7 [facility] Weight Measurement Method 1 1 [facility] Weight (Calculated Kilograms) 122.47 122.47 [facility] Weight 4528.0 4528.0 [facility] Temperature Source 7 7 [facility] Temperature 97.9 97.9 [facility] Respiratory Effort 1 1 [facility] Respiratory Rate 17 17 [facility] Pulse Assessment Method 4 4 [facility] Pulse Rate 88 88 [facility] Height (Calculated Centimeters) 187.96 187. 96 [facility] Height 74 74 [facility] Blood Pressure 137/82 137/82 [facility] Body Mass Index (BMI) 34.7 34.7 [facility] Weight Measurement Method 1 1 [facility] Weight (Calculated Kilograms) 122.47 122.47 [facility] Weight 4464.0 4464.0 [facility] Temperature Source 7 7 [facility] Temperature 97.9 97.9 [facility] Respiratory Effort 1 1 [facility] Respiratory Rate 16 16 [facility] Pulse Assessment Method 4 4 [facility] Pulse Rate 99 99 [facility] Height (Calculated Centimeters) 187.96 187. 96 [facility] Height 74 74 [facility] Blood Pressure 127/90 127/90 [place] [facility] Body Mass Index (BMI) 34.7 34.7 [facility] Weight (Calculated Kilograms) 122.47 122.47 [facility] Weight 4320 4320 [facility] Temperature Source 7 7 [facility] Temperature 97.8 97.8 [facility] Respiratory Effort 1 1 [facility] Respiratory Rate 18 18 [facility] Pulse Assessment Method 4 4 [facility] Pulse Rate 83 83 [facility] Height (Calculated Centimeters) 187.96 187. 96 [facility] Height 74 74 [facility] Blood Pressure 133/91 133/91 [facility] Body Mass Index (BMI) 34.7 34.7 [facility] Weight (Calculated Kilograms) 122.47 122.47 [facility] Weight 4320 4320 [facility] Temperature 98.2 98.2 [facility] Respiratory Effort 1 1 [facility] Respiratory Rate 15 15 [facility] Pulse Rate 67 67 [facility] Height (Calculated Centimeters) 187.96 187. 96 [facility] Height 74 74 [facility] Blood Pressure 133/90 133/90 [facility] Body Mass Index (BMI) 34.7 34.7 [facility] Weight (Calculated Kilograms) 122.47 122.47 [facility] Height (Calculated Centimeters) 187.96 187. 96 [facility] Body Mass Index (BMI) 34.7 34.7 [facility] ID Date Data Source [id number] 08/05/2019 10:28:56 AM [facility] Name Value Range Interpretation Code Description Data Source(s) WEIGHT RECORDED 279.98 lb 279.98 lb [facility] Body height Measured 70.47 in 70.47 in [facility] ID Date Data Source [id number] 08/13/2019 10:46:58 PM [facility] Name Value Range Interpretation Code Description Data Source(s) WEIGHT RECORDED 274.25 lb 274.25 lb [facility] ID Date Data Source [id number] 07/06/2020 11:00:00 AM EST [facility] Name Value Range Interpretation Code Description Data Source(s) Weight Measurement Method 1 1 [facility] Weight (Calculated Kilograms) 122.47 122.47 [facility] Weight 4576.0 4576.0 [facility] Temperature Source 7 7 [facility] Temperature 98.4 98.4 [facility] Respiratory Effort 1 1 [facility] Respiratory Rate 18 18 [facility] Pulse Assessment Method 4 4 [facility] Pulse Rate 95 95 [facility] Height (Calculated Centimeters) 187.96 187. 96 [facility] Height 74 74 [facility] Blood Pressure 141/93 141/93 [facility] Body Mass Index (BMI) 34.7 34.7 [facility] Weight Measurement Method 1 1 [facility] Weight (Calculated Kilograms) 122.47 122.47 [facility] Weight 4576.0 4576.0 [facility] Temperature Source 7 7 [facility] Temperature 98.4 98.4 [facility] Respiratory Effort 1 1 [facility] Respiratory Rate 18 18 [facility] Pulse Assessment Method 4 4 [facility] Pulse Rate 95 95 [facility] Height (Calculated Centimeters) 187.96 187. 96 [facility] Height 74 74 [facility] Blood Pressure 141/93 141/93 [facility] Body Mass Index (BMI) 34.7 34.7 [facility] Weight Measurement Method 1 1 [facility] Weight (Calculated Kilograms) 122.47 122.47 [facility] Weight 4576.0 4576.0 [facility] Temperature Source 7 7 [facility] Temperature 98.4 98.4 [facility] Respiratory Effort 1 1 [facility] Respiratory Rate 18 18 [facility] Pulse Assessment Method 4 4 [facility] Pulse Rate 95 95 [facility] Height (Calculated Centimeters) 187.96 187. 96 [facility] Height 74 74 [facility] Blood Pressure 141/93 141/93 [facility] Body Mass Index (BMI) 34.7 34.7 [facility] Weight Measurement Method 1 1 [facility] Weight (Calculated Kilograms) 122.47 122.47 [facility] Weight 4320 4320 [facility] Temperature Source 7 7 [facility] Temperature 97.8 97.8 [facility] Respiratory Effort 1 1 [facility] Respiratory Rate 16 16 [facility] Pulse Assessment Method 4 4 [facility] Pulse Rate 76 76 [facility] Height (Calculated Centimeters) 187.96 187. 96 [facility] Height 74 74 [facility] Blood Pressure 126/83 126/83 [facility] Body Mass Index (BMI) 34.7 34.7 [facility] Weight Measurement Method 1 1 [facility] Weight (Calculated Kilograms) 122.47 122.47 [facility] Weight 4320 4320 [facility] Temperature Source 7 7 [facility] Temperature 97.9 97.9 [facility] Respiratory Effort 1 1 [facility] Respiratory Rate 16 16 [facility] Pulse Assessment Method 4 4 [facility] Pulse Rate 77 77 [facility] Height (Calculated Centimeters) 187.96 187. 96 [facility] Height 74 74 [facility] Blood Pressure 128/86 128/86 [facility] Body Mass Index (BMI) 34.7 34.7 [facility] Weight Measurement Method 1 1 [facility] Weight (Calculated Kilograms) 122.47 122.47 [facility] Weight 4320 4320 [facility] Temperature Source 7 7 [facility] Temperature 97.9 97.9 [facility] Respiratory Effort 1 1 [facility] Respiratory Rate 16 16 [facility] Pulse Assessment Method 4 4 [facility] Pulse Rate 82 82 [facility] Height (Calculated Centimeters) 187.96 187. 96 [facility] Height 74 74 [facility] Blood Pressure 139/72 139/72 [facility] Body Mass Index (BMI) 34.7 34.7 [facility] Weight Measurement Method 1 1 [facility] Weight (Calculated Kilograms) 122.47 122.47 [facility] Weight 4320 4320 [facility] Temperature Source 7 7 [facility] Temperature 96.2 96.2 [facility] Respiratory Effort 1 1 [facility] Respiratory Rate 18 18 [facility] Pulse Assessment Method 4 4 [facility] Pulse Rate 86 86 [facility] Height (Calculated Centimeters) 187.96 187. 96 [facility] Height 74 74 [facility] Blood Pressure 141/98 141/98 [facility] Body Mass Index (BMI) 34.7 34.7 [facility] Weight (Calculated Kilograms) 137.44 137.44 [facility] Height (Calculated Centimeters) 182.88 182. 88 [facility] Body Mass Index (BMI) 41.1 41.1 [facility] ID Date Data Source [id number] 07/06/2020 11:00:00 AM EST [facility] Name Value Range Interpretation Code Description Data Source(s) Weight Measurement Method 1 1 [facility] Weight (Calculated Kilograms) 137.44 137.44 [facility] Weight 4960 4960 [facility] Temperature Source 3 3 [facility] Temperature 97.3 97.3 [facility] Respiratory Effort 2 2 [facility] Respiratory Rate 18 18 [facility] Pulse Assessment Method 4 4 [facility] Pulse Rate 90 90 [facility] Height (Calculated Centimeters) 182.88 182. 88 [facility] Height 72 72 [facility] Blood Pressure 142/85 142/85 [facility] Body Mass Index (BMI) 41.1 41.1 [facility] Patient Treatment Plan of Care Planned Activity Planned Date Details Description Data Source (s) Acetaminophen 325 MG Oral Tablet 07/24/2019 05:24:32 PM [facility] QUEtiapine (SEROquel) tablet 300 mg 07/15/2019 10:00:00 PM [facility] Trazodone Hydrochloride 100 MG Oral Tablet 07/15/2019 10:00:00 PM [facility] dextrose 50 % IV solution 25 mL 07/15/2019 01:00:26 AM [facility] Glucagon 1 MG Injection 07/15/2019 01:00:26 AM [facility] Glucose 0.4 MG/MG Oral Gel 07/15/2019 01:00:26 AM [facility] Melatonin 3 MG Oral Tablet 10/17/2014 12:00:00 AM [facility] Lurasidone Hydrochloride 40 MG Oral Tablet 07/10/2014 12:00:00 AM E [facility] quetiapine 200 MG Oral Tablet [facility]QU[facility] ([facility]) Nicotine 2 MG Chewing Gum AT ANGIE ([facility]) Clindamycin 300 MG Oral Capsule [facility]QUIS ([facility]) Lisinopril 20 MG Oral Tablet [facility]
[2020-07-09] MEDS ORDERED: NS 150 ML IV ONE (09:15)
[2020-07-09] MEDS ORDERED: MORPHINE 4 MG/ML 1ML VIAL/SYRINGE (J2270) IV ONE (09:15)
[2020-07-09 09:30] LABS: BASO % 0.4 % (0.0-1.0); EOS # 0.1 10^3/uL (0.0-0.5); EOS % 2.5 % (0.0-3.0); HEMATOCRIT 39.8 % (42.0-52.0); HEMOGLOBIN 13.1 g/dl (13.5-17.5); LYMPH # 2.8 10^3/uL (1.5-5.0); LYMPH % 54.6 % (24.0-44.0); MEAN CORPUSCULAR HEMOGLOBIN 27.5 pg (27.0-33.0); MEAN CORPUSCULAR HGB CONC 32.9 g/dl (32.0-36.5); MEAN CORPUSCULAR VOLUME 83.4 fl (80.0-96.0); MONO # 0.5 10^3/uL (0.0-0.8); MONO % 9.3 % (2.0-8.0); NEUTROPHILS # 1.7 10^3/uL (1.5-8.5); NEUTROPHILS % 32.8 % (36.0-66.0); PLATELET COUNT, AUTOMATED 247 10^3/uL (150-450); RED BLOOD COUNT 4.77 10^6/uL (4.30-6.10); WHITE BLOOD COUNT 5.2 10^3/uL (4.0-10.0)
[2020-07-09] MEDS ORDERED: ACETAMINOPHEN TAB 650MG DOSE (2X325MG) PO ONE (09:30)
[2020-07-09 09:46] LABS: ALBUMIN 3.2 GM/DL (3.2-5.2); ALT/SGPT 42 U/L (12-78); BILIRUBIN,TOTAL 0.3 MG/DL (0.2-1.0); BLOOD UREA NITROGEN 10 MG/DL (7-18); CALCIUM LEVEL 8.6 MG/DL (8.5-10.1); CARBON DIOXIDE LEVEL 26 MEQ/L (21-32); CHLORIDE LEVEL 103 MEQ/L (98-107); CREATININE FOR GFR 1.05 MG/DL (0.70-1.30); GLOMERULAR FILTRATION RATE > 60.0 (>56); GLUCOSE, FASTING 280 MG/DL (70-100); LIPASE 649 U/L (73-393); SODIUM LEVEL 136 MEQ/L (136-145); TOTAL PROTEIN 6.5 GM/DL (6.4-8.2)
[2020-07-09] MEDS ORDERED: ISOVUE-370 76% 100ML VIAL As Ordered ONE (09:57)
--- NOTE | 2020-07-09 10:42 | REP ---
INDICATION: bilateral flank pain, elevated lipase. COMPARISON: 05/04/2019 TECHNIQUE: Axial contrast-enhanced images from the lung bases to the pubic symphysis using 100 cc Isovue 370 intravenous contrast material. Coronal and sagittal reformations obtained. This CT examination was performed using the following dose reduction techniques: Automated exposure control, adjustment of mA and/or kv according to the patient's size, and the use of iterative reconstruction technique. FINDINGS: Liver demonstrates fatty infiltration without focal hepatic lesion. Spleen, pancreas, gallbladder, bilateral adrenal glands and kidneys are normal. The enteric system including stomach, small, and large bowel appears normal. No evidence for obstruction or acute inflammatory process. Normal terminal ileum and appendix are identified in the right lower quadrant. Scattered sigmoid diverticula noted without acute diverticulitis. Pelvis demonstrates normal bladder and age-appropriate prostate/seminal vesicles. No ascites. No free air. No intraperitoneal or retroperitoneal adenopathy. Abdominal aorta and vasculature appear normal. Musculoskeletal structures are intact and without acute osseous abnormality. Lung bases are clear. IMPRESSION: No acute abdominopelvic pathology appreciated. Diverticulosis without acute diverticulitis. Hepatosteatosis. <Electronically signed by Natalio Stern > 07/09/20 1033
[2020-07-09 11:00] LABS: APPEARANCE, URINE CLEAR (CLEAR); BACTERIA, URINE AUTO NEGATIVE (NEGATIVE); BILIRUBIN, URINE AUTO NEGATIVE (NEGATIVE); BLOOD, URINE BLOOD NEGATIVE (NEGATIVE); COLOR, URINE YELLOW (YELLOW); GLUCOSE, URINE (UA) AUTO 3+ mg/dL (NEGATIVE); KETONE, URINE AUTO NEGATIVE (NEGATIVE); LEUKOCYTE ESTERASE, URINE AUTO NEGATIVE (NEGATIVE); MUCUS, URINE SMALL (NEGATIVE); NITRITE, URINE AUTO NEGATIVE (NEGATIVE); PROTEIN, URINE AUTO NEGATIVE (NEGATIVE); RBC, URINE AUTO 0 /HPF (0-3); SPECIFIC GRAVITY URINE AUTO 1.033 (1.002-1.035); SQUAMOUS EPITHELIAL CELL UR AU 1 /HPF (0-6); UROBILINOGEN, URINE AUTO 0.2 mg/dL (0.0-2.0); WBC, URINE AUTO 0 /HPF (0-3)
[2020-07-09 15:04] VITALS: BP 134/84
== END 2020-07-09 15:08 | disposition home or self-care (01) ==
LOC: M ED 08:30 → EDBD 08:30 → M ED 15:08
DX: R10.9 Unspecified abdominal pain (principal); K76.0 Fatty (change of) liver, not elsewhere classified; K57.30 Diverticulosis of large intestine without perforation or abscess without bleeding; I50.32 Chronic diastolic (congestive) heart failure; J44.9 Chronic obstructive pulmonary disease, unspecified; E11.9 Type 2 diabetes mellitus without complications; I10 Essential (primary) hypertension; Z87.891 Personal history of nicotine dependence; F19.10 Other psychoactive substance abuse, uncomplicated; F12.10 Cannabis abuse, uncomplicated; Z79.899 Other long term (current) drug therapy; Z79.84 Long term (current) use of oral hypoglycemic drugs; Z88.8 Allergy status to other drugs, medicaments and biological substances
CPT/HCPCS: 74177; 80053; 81001; 83690; 85025; 96360; 96361; 99284; Q9967

== ENCOUNTER → 2020-07-16 | Outpatient (REF) | payer OTHER ==
[2020-07-16 13:21] LABS: CHOLESTEROL RISK RATIO 3.979 (<5); FREE T4 1.31 NG/DL (0.76-1.46); THYROID STIMULATING HORMONE 2.38 uIU/ML (0.358-3.740)
[2020-07-16 13:46] LABS: HEMOGLOBIN A1c 12.6 %
[2020-07-18 00:06] LABS: PSA TOTAL 0.5 ng/mL (0.0-4.0)
== END ==
LOC: M LAB REF 12:29
PROVIDERS: ATTEND Nurse Practitioner Family
DX: E11.65 Type 2 diabetes mellitus with hyperglycemia (principal); E78.5 Hyperlipidemia, unspecified; I10 Essential (primary) hypertension; F31.62 Bipolar disorder, current episode mixed, moderate

== ENCOUNTER 2020-07-20 12:23 | Emergency (ER) | payer OTHER ==
[~2020-07-20] VITALS: Ht 188 cm; Wt 132.5 kg
--- OUTSIDE RECORDS SUMMARY | 2020-07-20 12:32 | CCD ---
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, Mild: Other or unspecified sti mulant Active 07/16/2020 Medications Rx Norm Medication Route Route Concept Start Date Stop Date Dosage Nawaf quency Duration Formula Strength Dosage Form Dosage Form Code Dosage Description Medication Id Account Npid Author First Name Author Last Name Taxonomy Code Taxonomy Desc Phone Number [phone] Invhammad Trinza 05/14/2018 every three months 819 mg/2.625 mL syringe [phone] Melvin Daugherty [id number] [facility] [id number] Social History Social History Element Description Concept Effective Date Smoking Status Unknown if ever smoked [id number] Immunizations No Data in Section Vital Signs Encounter Date Height Ins Weight Lbs Bmi Bp Systolic Bp Diastoli c Oxygen Saturation Respiration Rate Pulse Rate Body Temp Head Circumference Heigh t Lying 07/16/2020 0.00 0.00 0.00 0 0 0.00 0 0 0.00 0.0 0.0 0 Procedures Date Concept Id Description Targeted Site Concept Targeted Site Concept Type 07/16/2020 53288 E/M Level 3 - Established Patient CPT Patient has no history of implantable de vices Encounters Encounter Start Date End Date Encounter Type Description Diagnosis Di agnosis Desc Location Author First Name Author Last Name Npid Taxonomy Cod e Taxonomy Desc Phone Number Location Addr1 Location Addr2 Location [facility] Location Sta te Location Zip [id number] 07/16/2020 07/16/2020 29879 E/M Level 3 - Established Pa teressa F29 Unspecified Schizophrenia Spectrum and Other Psychotic Disorder [facility] Raad Ann [phone] [id number] Nurse Practition er [phone] [address] [phone] Plan of Treatment No Data in Section Lab Results No Data in Section Instructions No Data in Section Functional Cognitive Status No Data in Section Insurance Providers Insurance Id Policy Effective Date Policy Thru Date Company N twan [id number] 2017 [id number]
[2020-07-20] MEDS ORDERED: KETOROLAC 60MG 2ML VIAL IM ONE (12:55)
[2020-07-20 13:34] LABS: BASO % 0.3 % (0.0-1.0); EOS # 0.2 10^3/uL (0.0-0.5); EOS % 2.3 % (0.0-3.0); HEMATOCRIT 42.4 % (42.0-52.0); HEMOGLOBIN 14.1 g/dl (13.5-17.5); LYMPH # 2.8 10^3/uL (1.5-5.0); LYMPH % 38.5 % (24.0-44.0); MEAN CORPUSCULAR HEMOGLOBIN 27.3 pg (27.0-33.0); MEAN CORPUSCULAR HGB CONC 33.3 g/dl (32.0-36.5); MEAN CORPUSCULAR VOLUME 82.2 fl (80.0-96.0); MONO # 0.6 10^3/uL (0.0-0.8); NEUTROPHILS # 3.7 10^3/uL (1.5-8.5); NEUTROPHILS % 50.6 % (36.0-66.0); PLATELET COUNT, AUTOMATED 243 10^3/uL (150-450); RED BLOOD COUNT 5.16 10^6/uL (4.30-6.10); WHITE BLOOD COUNT 7.3 10^3/uL (4.0-10.0)
[2020-07-20 13:56] LABS: ALBUMIN 4.1 GM/DL (3.2-5.2); BILIRUBIN,DIRECT 0.2 MG/DL (0.0-0.2); BILIRUBIN,TOTAL 0.6 MG/DL (0.2-1.0); C REACTIVE PROTEIN QUANTITATIV 2.84 MG/DL (0.00-0.30); TOTAL PROTEIN 7.4 GM/DL (6.4-8.2)
--- NOTE | 2020-07-20 14:00 | REP ---
INDICATION: pain. COMPARISON: None. TECHNIQUE: Four views each hand FINDINGS: Right hand: There are old healed and remodeled fractures of the midshaft of the 4th and 5th metacarpals. Some dorsal apex angulation is noted, greater at the 5th metacarpal. No subluxation or dislocation from the MCP joints. No new or superimposed acute fracture of the metacarpals. There is some degenerative changes at the MCP joints throughout, sparing the 4th. IP joints with some degenerative changes there are old posttraumatic changes with the fused DIP joint of the 3rd digit. Carpal bones and their joint spaces grossly intact. Radiocarpal joint some minor degenerative change 1st CMC joint with degenerative change. Left hand: Some minor soft tissue swelling dorsal aspect the hand but no visible acute or healed metacarpal fracture on the left. MCP joints show minor degenerative changes of the thumb and slight narrowing throughout without erosions or significant spurring IP joint shows spurring. Appear to be some posttraumatic changes of the distal tuft of the distal phalanx of the 2nd finger not clearly acute. IP joints are narrowed. Small spurs at some. No acute fracture the phalanges carpal bones or metacarpals and the distal radius and ulna intact IMPRESSION: 1. Right hand with old healed and remodeled 4th and 5th metacarpal midshaft fractures with dorsal apex angulation no acute superimposed fracture. Degenerative changes at MCP joints and IP joints with old posttraumatic fusion of the DIP joint of the 3rd digit. Some degenerative changes 1st CMC joint. Carpal bones and distal radius ulna otherwise intact. 2. Left hand without evidence of acute fracture. Some mild soft tissue swelling dorsal aspect of the hand and degenerative changes at multiple MCP and IP joints. There appear to be old posttraumatic changes of the distal tuft distal phalanx 2nd digit not definitely acute. No foreign body. No erosive osteoarthritis. <Electronically signed by Heri Salas > 07/20/20 8433
[2020-07-20 14:09] LABS: ERYTHROCYTE SEDIMENTATION RATE 9 mm/hr (0-20)
--- OUTSIDE RECORDS SUMMARY | 2020-07-20 14:22 | CCD ---
Author Author [facility] Organization [facility] Address Unknown Phone Unavailable Care Team Providers Care Coppersmith Helper Name Role Phone Paris Yang MD Unavailable [...] Unavailable Penny, Enoc Monalisa PA PA Unavailable [phone] Penny, E Monalisa PA PA Unavailable [phone] Penny E Monalisa PA PA Unavailable [phone] Penny, E Monalisa PA PA Unavailable [phone] Mamie Gil Unavailable Mary MANNING . Unavailable Unavailable KATEY OSWALD MD Unavailable Unavailable KATEY OSWALD MD Unavailable Unavailable KATEY OSWALD MD Unavailable Unavailable KATEY OSWALD MD Unavailable Unavailable Penny, Enoc Monalisa PA Unavailable Unavailable SALMA [id number], E NAMAN [id number] Unavailable Unavailab le SALMA [id number], E NAMAN [id number] Unavailable Unavailab le SALMA [id number], E NAMAN [id number] Unavailable Unavailab henry Ricardo, [facility] Unavailable Unavailab le GRUDOWSKI, P CHRISTOPHER DIRECT CARE WORKER Unavailable GRUDOWSKI, P CHRISTOPHER DIRECT CARE WORKER Unavailable GRUDOWSKI, P CHRISTOPHER DIRECT CARE WORKER Unavailable GRUDOWSKI, P CHRISTOPHER DIRECT CARE WORKER Unavailable GRUDOWSKI, P CHRISTOPHER DIRECT CARE WORKER Unavailable GRUDOWSKI, P CHRISTOPHER DIRECT CARE WORKER Unavailable GRUDOWSKI, P CHRISTOPHER DIRECT CARE WORKER Unavailable GRUDOWSKI, P CHRISTOPHER DIRECT CARE WORKER Unavailable GRUDOWSKI, P CHRISTOPHER DIRECT CARE WORKER Unavailable GRUDOWSKI, P CHRISTOPHER DIRECT CARE WORKER Unavailable GRUDOWSKI, P CHRISTOPHER DIRECT CARE WORKER Unavailable GRUDOWSKI, P CHRISTOPHER DIRECT CARE WORKER Unavailable GRUDOWSKI, P CHRISTOPHER DIRECT CARE WORKER Unavailable GRUDOWSKI, P CHRISTOPHER DIRECT CARE WORKER Unavailable GRUDOWSKI, P CHRISTOPHER DIRECT CARE WORKER Unavailable GRUDOWSKI, P CHRISTOPHER DIRECT CARE WORKER Unavailable GRUDOWSKI, P CHRISTOPHER DIRECT CARE WORKER Unavailable GRUDOWSKI, P CHRISTOPHER DIRECT CARE WORKER Unavailable GRUDOWSKI, P CHRISTOPHER DIRECT CARE WORKER Unavailable GRUDOWSKI, P CHRISTOPHER DIRECT CARE WORKER Unavailable GRUDOWSKI, P CHRISTOPHER DIRECT CARE WORKER Unavailable GRUDOWSKI, P CHRISTOPHER DIRECT CARE WORKER Unavailable [place], C Melvin Unavailable Unavailable [place], C Melvin Unavailable Unavailable [place], C Melvin Unavailable Unavailable Dat, C Melvin Unavailable Unavailable [place], C Melvin Unavailable Unavailable Dat, C Melvin [...] FERRELL MD Unavailable Unavailable Trev, A Manju SPECIAL NEEDS CHILD CAREGIVER Unavailable Unavailable Trev, A Manju SPECIAL NEEDS CHILD CAREGIVER Unavailable Unavailable Trev, A Manju SPECIAL NEEDS CHILD CAREGIVER Unavailable Unavailable Trev, A Manju SPECIAL NEEDS CHILD CAREGIVER Unavailable Unavailable Trev, A Manju SPECIAL NEEDS CHILD CAREGIVER Unavailable Unavailable Trev, A Manju SPECIAL NEEDS CHILD CAREGIVER Unavailable Unavailable Trev, A Manju SPECIAL NEEDS CHILD CAREGIVER Unavailable Unavailable Trev, A Manju SPECIAL NEEDS CHILD CAREGIVER Unavailable Unavailable Trev, A Manju SPECIAL NEEDS CHILD CAREGIVER Unavailable Unavailable Trev, A Manju SPECIAL NEEDS CHILD CAREGIVER Unavailable Unavailable Davis, A Manju SPECIAL NEEDS CHILD CAREGIVER Unavailable Unavailable Davis, A Manju SPECIAL NEEDS CHILD CAREGIVER Unavailable Unavailable Davis, A Manju SPECIAL NEEDS CHILD CAREGIVER Unavailable Unavailable Davis, A Manju SPECIAL NEEDS CHILD CAREGIVER Unavailable Unavailable Davis, A Manju SPECIAL NEEDS CHILD CAREGIVER Unavailable Unavailable Davis, A Manju SPECIAL NEEDS CHILD CAREGIVER Unavailable Unavailable Davis, A Manju SPECIAL NEEDS CHILD CAREGIVER Unavailable Unavailable Davis, A Manju SPECIAL NEEDS CHILD CAREGIVER Unavailable Unavailable Davis, A Manju SPECIAL NEEDS CHILD CAREGIVER Unavailable Unavailable Davis, A Manju SPECIAL NEEDS CHILD CAREGIVER Unavailable Unavailable Davis, A Manju SPECIAL NEEDS CHILD CAREGIVER Unavailable Unavailable Davis, A Manju SPECIAL NEEDS CHILD CAREGIVER Unavailable Unavailable Davis, A Manju SPECIAL NEEDS CHILD CAREGIVER Unavailable Unavailable Davis, A Manju SPECIAL NEEDS CHILD CAREGIVER Unavailable Unavailable Davis, A Manju SPECIAL NEEDS CHILD CAREGIVER Unavailable Unavailable Davis, A Manju SPECIAL NEEDS CHILD CAREGIVER Unavailable Unavailable Davis, A Manju SPECIAL NEEDS CHILD CAREGIVER Unavailable Unavailable Trev, A Manju SPECIAL NEEDS CHILD CAREGIVER Unavailable Unavailable ASADENEEN Holliday MD Unavailable Unavailable [...] Pruitt Unavailable ErnestoCarlie Unavailable Trev, A Manju SPECIAL NEEDS CHILD CAREGIVER Unavailable Unavailable Trev, A Manju SPECIAL NEEDS CHILD CAREGIVER Unavailable Unavailable Trev, A Manju SPECIAL NEEDS CHILD CAREGIVER Unavailable Unavailable Trev, A Manju SPECIAL NEEDS CHILD CAREGIVER Unavailable Unavailable Trev, A Manju SPECIAL NEEDS CHILD CAREGIVER Unavailable Unavailable Trev, A Manju SPECIAL NEEDS CHILD CAREGIVER Unavailable Unavailable Trev, A Manju SPECIAL NEEDS CHILD CAREGIVER Unavailable Unavailable Trev, A Manju SPECIAL NEEDS CHILD CAREGIVER Unavailable Unavailable Trev, A Manju SPECIAL NEEDS CHILD CAREGIVER Unavailable Unavailable Trev, A Manju SPECIAL NEEDS CHILD CAREGIVER Unavailable Unavailable Trev, A Manju SPECIAL NEEDS CHILD CAREGIVER Unavailable Unavailable Trev, A Manju SPECIAL NEEDS CHILD CAREGIVER Unavailable Unavailable Trev, A Manju SPECIAL NEEDS CHILD CAREGIVER Unavailable Unavailable Trev, A Manju SPECIAL NEEDS CHILD CAREGIVER Unavailable Unavailable Trev, A Manju SPECIAL NEEDS CHILD CAREGIVER Unavailable Unavailable Trev, A Manju SPECIAL NEEDS CHILD CAREGIVER Unavailable Unavailable Trev, A Manju SPECIAL NEEDS CHILD CAREGIVER Unavailable Unavailable Davis, A Manju SPECIAL NEEDS CHILD CAREGIVER Unavailable Unavailable Davis, A Manju SPECIAL NEEDS CHILD CAREGIVER Unavailable Unavailable Trev, A Manju SPECIAL NEEDS CHILD CAREGIVER Unavailable Unavailable Trev, A Manju SPECIAL NEEDS CHILD CAREGIVER Unavailable Unavailable Trev, A Manju SPECIAL NEEDS CHILD CAREGIVER Unavailable Unavailable Trev, A Manju SPECIAL NEEDS CHILD CAREGIVER Unavailable Unavailable Davis, A Manju SPECIAL NEEDS CHILD CAREGIVER Unavailable Unavailable Davis, A Manju SPECIAL NEEDS CHILD CAREGIVER Unavailable Unavailable Davis, A Manju SPECIAL NEEDS CHILD CAREGIVER Unavailable Unavailable Trev, A Manju SPECIAL NEEDS CHILD CAREGIVER Unavailable Unavailable Trev, A Manju SPECIAL NEEDS CHILD CAREGIVER Unavailable Unavailable Tamara Huizar ARCHERY EQUIPMENT REPAIRER Unavailable Unavailable DELIA, H KJ DIRECT CARE WORKER Unavailable Unavailable DELIA, H KJ DIRECT CARE WORKER Unavailable Unavailable DELIA, H KJ DIRECT CARE WORKER Unavailable Unavailable DELIA, H KJ DIRECT CARE WORKER Unavailable Unavailable DELIA, H KJ DIRECT CARE WORKER Unavailable Unavailable DELIA, H KJ DIRECT CARE WORKER Unavailable Unavailable DELIA, H KJ DIRECT CARE WORKER Unavailable Unavailable DELIA, H KJ DIRECT CARE WORKER Unavailable Unavailable YOUNG, A DAQUAN SPECIAL NEEDS CHILD CAREGIVER Unavailable Unavailable YOUNG, A DAQUAN SPECIAL NEEDS CHILD CAREGIVER Unavailable Unavailable YOUNG, A DAQUAN SPECIAL NEEDS CHILD CAREGIVER Unavailable Unavailable YOUNG, A DAQUAN SPECIAL NEEDS CHILD CAREGIVER Unavailable Unavailable YOUNG, A DAQUAN SPECIAL NEEDS CHILD CAREGIVER Unavailable Unavailable Manju Karimi SPECIAL NEEDS CHILD CAREGIVER SPECIAL NEEDS CHILD CAREGIVER Unavailable Unavailable Re-disclosure Warning The records that [...] is protected by Article 27-F of the [facility] Public Health law. If you continue you may have access to information: Regarding HIV / AIDS; Provided by facilities licensed or operated by the [facility] Office of Mental Health; or Provided by the [facility] Office for People With Developmental Disabilities. If such information is present, then the following [facility] mandated warning applies: This information has [...] law may result in a fine or skilled nursing sentence or both. A general authorization for the release of medical or other information is NOT sufficient authorization for further disc losure. Allergies and Adverse Reactions Type Description Substance Reaction Status Data Source(s ) Drug allergy Drug allergy egg Vomiting [facility] Drug allergy Drug allergy haloperidol (From Haldol) Unknown Reaction [facility] Family History Family Member Name Family Member Gender Family Member Status Date o f Status Description Data Source(s) Unknown Male Problem MEDENT ([facility], ) () Unknown Male Problem [facility] Encounters Encounter Providers Location Date Indications Data Source(s ) Outpatient Attender: KJ LIN NP [facility] Florentino l 07/16/2020 11:00:00 AM EST - 07/16/2020 11:00:00 AM EST [facility] ([facility]) Attender: KJ LIN NP 07/16/2020 12:00:00 AM EST [facility] ([facility]) Psychiatric Diagnostic Evaluation with Medical Service s Attender: KJ LIN NP [facility] 06/25/2020 02:00:00 AM EST - 06/25/2020 02:00:00 AM EST [facility] ([facility]) Attender: KJ LIN NP 06/25/2020 12:00:00 AM EST [facility] ([facility]) NICO Black-BC: [address] [place] [address], Ph. Attender: Manju WALSH [facility] Medical 06/22/2020 12:00:00 AM EST [facility] ([facility]) Psychiatric Diagnostic Evaluation (Non-Medical) [facility] 06/19/2020 12:30:00 PM EST - 06/19/2020 12:30:00 PM EST [facility] ([facility]) Attender: Mamie Gil 06/19/2020 12:00:0 0 AM EST [facility] ([facility]) Psychiatric Diagnostic Evaluation (Non-Medical) Attender: Kobi Gil [facility] 06/05/2020 11:45:00 AM EST - 06/05/2020 11:45:00 AM EST [facility] ([facility]) Attender: 0 [id number] 06/05/2020 09:22:00 AM ES T [facility] Attender: Mamie Gil 06/05/2020 12:00:0 0 AM EST [facility] ([facility]) Preadmit Attender: [facility] Laura Ricardo [facility]PS[facility]ORT- [facility]RE[facility] 05/10/2020 04:00:00 PM EST PSD [facility] PSD Brief Individual Psychotherapy - 30 min Attender: Carlie patel [facility] 05/09/2020 09:00:00 AM EST - 05/09/2020 09:00:00 AM EST [facility] ([facility]) Attender: Carlie Orozco 05/09/2020 12:00:00 AM EST [facility] ([facility]) Preadmit Attender: EMMA Ricardo [facility]- [facility]RE[facility] 05/03/2020 11:00:00 AM EST MAR [facility] MAR Outpatient Attender: EMMA Ricardo [facility] 04/30/2020 02:00:00 PM EST - 04/30/2020 02:01:00 PM EST PSD [facility] PSD Patient discharged. Emergency Attender: SAM WYNN NPAttend er: Sailaja Barry MD CPSCAORT-ED 04/25/2020 12:12:00 PM EST - 04/25/2020 02:18:00 PM EST BACK PAIN [facility] BACK PAIN Patient discharged. Outpatient Attender: EMMA Ricardo [facility] 04/23/2020 02:00:00 PM EST - 04/23/2020 02:01:00 PM EST PSD [facility] PSD Patient discharged. Outpatient Attender: EMMA Ricardo [facility]- [facility] 04/02/2020 02:00:00 PM EST - 04/02/2020 02:01:00 PM EST PSD [facility] PSD Patient discharged. Outpatient Attender: EMMA Ricardo [facility]- [facility] 03/20/2020 03:00:00 PM EDT PSD [facility] PSD Outpatient [facility]RE[facility] 03/13/2020 03: 00:00 PM EDT - 03/13/2020 03:01:00 PM EDT PSD [facility] PSD Patient discharged. Outpatient Attender: EMMA Ricardo [facility]PS[facility]ORT- [facility]RE[facility] 03/12/2020 02:00:00 PM EDT - 03/12/2020 02:01:00 PM EDT PSD [facility] PSD Patient discharged. Outpatient Attender: EMMA Ricardo [facility]- [facility]RE[facility] 03/06/2020 11:00:00 AM EDT - 03/06/2020 11:01:00 AM EDT PSD [facility] PSD Patient discharged. Outpatient JEANNIECAORT-CHEPDREH 02/28/2020 03: 00:00 PM EDT - 02/28/2020 03:01:00 PM EDT PSD [facility] PSD Patient discharged. Outpatient Attender: ANY Ricardo [facility]PS[facility]- [facility]RE[facility] 02/27/2020 02:00:00 PM EDT - 02/27/2020 02:01:00 PM EDT PSD [facility] PSD Patient discharged. Outpatient Attender: ANY DENNISCAORT- CHEPDREH 02/21/2020 10:00:00 AM EDT - 02/21/2020 10:01:00 AM EDT PSD [facility] PSD Patient discharged. Outpatient Attender: ANY Ricardo [facility]PS[facility]- [facility]RE[facility] 01/23/2020 02:00:00 PM EDT - 01/23/2020 02:01:00 PM EDT PSD [facility] PSD Patient discharged. Outpatient Attender: Tamara Huizar LCSW [facility] 03:00:00 PM EDT - 01/09/2020 03:01:00 PM EDT PSD [facility] PSD Patient discharged. Outpatient Attender: ANY Ricardo CPSCAORT- CHEPDREH 12/27/2019 03:00:00 PM EDT - 12/27/2019 03:01:00 PM EDT PSD [facility] PSD Patient discharged. Outpatient Attender: ANY Ricardo [facility]PSCAORT- CHEPDREH 12/22/2019 03:00:00 PM EDT - 12/22/2019 03:01:00 PM EDT [facility] PSD Patient discharged. Outpatient Attender: LMANY Alegriaer [facility]PS[facility]ORT- CHEPDREH 12/16/2019 01:00:00 PM EDT - 12/16/2019 01:01:00 PM EDT PSD [facility] PSD Patient discharged. Outpatient Attender: [facility] Laura Ricardo CPSCAORT- CHEPDREH 12/07/2019 02:00:00 PM EDT - 12/07/2019 02:01:00 PM EDT PSD [facility] PSD Patient discharged. Outpatient Attender: [facility] Laura Ricardo CPSCAORT- CHEPDREH 12/06/2019 02:00:00 PM EDT - 12/06/2019 02:01:00 PM EDT PSD [facility] PSD Patient discharged. Outpatient Attender: DAQUAN WALSH CPSCAORT-LABPNP 01/2020 08:36:00 PM EDT - 12/01/2019 08:37:00 PM EDT Z13.220,E11.9 [facility] Z13.220,E11.9 Patient discharged. Outpatient Attender: Tamara Huizar LCSW [facility] 02:00:00 PM EDT - 11/28/2019 02:01:[address] [facility] PSD Patient discharged. Outpatient Attender: [facility] Laura Ricardo CPSCAORT- CHEPDREH 11/22/2019 02:00:00 PM EDT - 11/22/2019 02:01:00 PM EDT PSD [facility] PSD Patient discharged. Outpatient Attender: Manju ORLANDO 11/07/2019 08:3 0:06 AM EDT [facility] Outpatient Attender: Monalisa TREVIÑOttender: Erin LAMB CPSCAORT-LABPNP 11/03/2019 10:31:00 PM EDT - 11/03/2019 10:32:00 PM EDT SCRE ENING [facility] SCREENING Patient discharged. Outpatient Attender: [facility] Laura Ricardo CPSCAORT- CHEPDREH 11/03/2019 01:00:00 PM EDT - 11/03/2019 01:01:00 PM EDT PSD [facility] PSD Patient discharged. Outpatient Attender: Tamara Huizar ARCHERY EQUIPMENT REPAIRER [facility]CHE[facility]RE[facility] 02:00:00 PM EDT - 10/31/2019 02:01:00 PM EDT PSD [facility] PSD Patient discharged. Outpatient Attender: [facility] Chika Salazar CPSCAORT-CHEPDREH 09/2019 11:00:00 AM EDT - 10/28/2019 11:01:00 AM EDT PSD [facility] PSD Patient discharged. Outpatient Attender: [facility] Laura Miya Ricardo CPSCAORT- CHEPDREH 10/26/2019 09:30:00 AM EDT - 10/26/2019 09:31:00 AM EDT PSD [facility] PSD Patient discharged. Inpatient Attender: Deneen Xiao nder: DENEEN ROSARIO MDAdmitter: DENEEN ROSARIO MD CPSCAORT-CHEPPDREH 07/25/2019 12:31:00 PM EST - 10/20/2019 09:00:00 AM EDT PSYCHOACTIVE SUBSTANCE DEPENDENCE [facility] PSYCHOACTIVE SUBSTANCE DEPENDENCE Patient discharged. Outpatient Attender: NICO ORLANDO 07/21/2019 09:01:04 P M EST [facility] Outpatient Attender: Melvin Daugherty [facility] 0 07/20/2019 10:30:00 AM EST - 07/20/2019 10:30:00 AM EST [facility] ([facility]) Attender: Melvin Daugherty 07/20/2019 12:00:00 AM EST [facility] ([facility]) Inpatient Attender: Nahid LAMB-pyrotechnics press tender: Paris Yang MDAdmitter: KATEY OSWALD MDReferrer: Paris Yang MDConsultant: GUSTAVO HARVEY MD [id number] 07/15/2019 12:00:00 AM EST - 07/25/2019 10:54:00 AM ES T [facility] suicidal ideation Patient discharged. Outpatient Attender: PAUL OCHOA MD Attender: GREGORIO MORALES .Attender: NEIL ALEX MDAdmitter: PAUL OCHOA MDReferrer: Nahid Arredondoonsultant: NAMAN MARSH [id number] 07/14/2019 05:18:53 PM EST - 07/15/2019 05:11:00 PM EST Altered mental status, unspecified [facility] Altered mental status, unspecified Patient discharged. Emergency Attender: NEIL ALEX MDReferrer: NEIL Nolasco MD 07/14/2019 05:16:36 PM [facility] Outpatient Attender: Manju MUÑOZP FP 07/13/2019 10:2 1:59 AM [facility] Out[facility]: [facility] 07/05/2019 09:37:00 A M [facility] Brief Individual Psychotherapy - 30 min Attender: Rosemary bahena [facility] 07/01/2019 11:30:00 AM EST - 07/01/2019 11:30:00 AM EST [facility] ([facility]) Attender: Rosemary Pruitt 07/01/2019 12:00:00 AM EST [facility] ([facility]) Outpatient Att[facility]: [facility] 06/30/2019 10:1 4:40 AM [facility] Outpatient Attender: [facility] 06/30/2019 10:14:07 A M [facility] Outpatient Att[facility]: [facility] 06/20/2019 04:37:00 P M [facility] Outpatient Attender: Melvin Daugherty [facility] 0 06/10/2019 11:00:00 AM EST - 06/10/2019 11:00:00 AM EST [facility] ([facility]) Attender: Melvin Daugherty 06/10/2019 12:00:00 AM EST [facility] ([facility]) Outpatient Att[facility]: [facility] 06/07/2019 04:05:00 P M [facility] Outpatient 06/06/2019 08:45:00 PM [facility] Inpatient Attender: Deneen Xiao nder: DENEEN ROSARIO MDAdmitter: DENEEN ROSARIO MD [facility]PPDRE[facility] 05/31/2019 09:46:00 AM EST - 06/28/2019 08:00:00 AM EST PSYCHOACTIVE SUBSTANCE DEPENDENCE [facility] PSYCHOACTIVE SUBSTANCE DEPENDENCE Patient discharged. Extended Individual Psychotherapy - 45 min [facility] 05/31/2019 01:30:00 AM EST - 05/31/2019 01:30:00 AM EST [facility] ([facility]) Attender: Rosemary Pruitt 05/31/2019 12:00:00 AM EST [facility] ([facility]) Outpatient Attender: NICO ORLANDO 05/27/2019 10:55:00 A M EST [facility] Inpatient Attender: DENEEN ROSARIO MDAdmitter: DENEEN ROSARIO MD [facility]PP[facility]RE[facility] 03/17/2016 11:23:00 AM EDT - 04/14/2016 10:30:00 AM EST PSYCHOACTIVE SUBSTANCE DEPENDENCE [facility] PSYCHOACTIVE SUBSTANCE DEPENDENCE Functional Status Medications Medication Brand Name Start Date Product [...] mg from all sources in 24 hours.
[facility] Medication administered onsite Acetaminophen 325 MG Oral [...] mg from all sources in 24 hours.
[facility] Medication administered onsite Metformin hydrochloride 500 MG Oral Tabl et metFORMIN (GLUCOPHAGE) tablet 1,000 mg metFORMIN (GLUCOPHAGE) tablet 1,000 mg 07/16/2019 08:00:00 AM EST 1000 mg Oral active Type 2 Diabetes Mellitus 1,000 mg, Oral, 2 Times Daily With Meals, Indications: Type 2 Diabetes Mellitus, First dose on Thu07/16/19 at 0800, For 30 days [facility] Type 2 Diabetes Mellitus Medication administered onsite Trazodone Hydrochloride 100 MG Oral Tablet trazodone ( DESYREL) tablet 300 mg trazodone (DESYREL) tablet 300 mg 07/15/2019 10:00:00 PM EST 300 mg Oral active 300 mg, Oral, Nightl y, First dose on Thu07/15/19 at 2200, For 30 days [facility] Medication administered onsite QUEtiapine (SEROquel) tablet 300 mg 07/15/2019 10:00:[address] 300 mg Oral active 300 mg, Oral, N ightly, First dose on Thu07/15/19 at 2200, For 30 days [facility] Medication administered onsite QUEtiapine (SEROquel) tablet 300 mg 07/15/2019 10:00:[address] 300 mg Oral aborted 300 mg, Oral, N ightly, First dose (after last modification) on Thu07/15/19 at 2200, For 30 days [facility] Medication administered onsite Trazodone Hydrochloride 100 MG Oral Tablet trazodone ( DESYREL) tablet 300 mg trazodone (DESYREL) tablet 300 mg 07/15/2019 10:00:00 PM EST 300 mg Oral aborted 300 mg, Oral, Nightl y, First dose on Thu07/15/19 at 2200, For 30 days [facility] Medication administered onsite 0.4 ML Enoxaparin sodium 100 MG/ML Prefi lled Syringe enoxaparin sodium (LOVENOX) injection 40 mg enoxaparin sodium (LOVENOX) injection 40 mg 07/15/2019 09:00:00 AM EST 40 mg Subcutaneous aborted 40 mg, Subcutaneous, Daily Standard, First dose on Thu07/15/19 at 0900, For 30 days [facility] Medication administered onsite Insulin Lispro 100 UNT/ML [...] Summary or Summary Report within the ED.
[facility] Medication administered onsite dexamethasone (DECADRON) injection 4 mg [id number] 07/15/19 07:00:00 AM EST 4 mg Intravenous aborted 4 mg, Intrav enous, Every 6 hours, First dose on Thu07/15/19 at 0700, For 30 days [facility] Medication administered onsite dextrose 50 % IV solution 25 mL [id number] 07/15/2019 01:00:[address] 25 mL Intravenous aborted 25 mL, Intrav enous, PRN, Other, blood glucose <55, Starting Thu07/15/19 at 0100, For 30 days
Not for midline administration.
[facility] Medication administered onsite Glucose 0.4 MG/MG Oral Gel glucose (GLUTOSE) 40 % oral gel 15 g glucose (GLUTOSE) 40 % oral gel 15 g 07/15/2019 01:00:26 AM EST 15 g Oral aborted 15 g, Oral, PRN, Low blood s ugar, for gluose 55-69 mg/dl and able to take PO, Starting Thu07/15/19 at 0100, For 30 days [facility] Medication administered onsite Glucagon 1 MG Injection glucagon (human recombinant) ( GLUCAGEN) injection 1 mg glucagon (human recombinant) (GLUCAGEN) injection 1 mg 07/15/2019 01:00:26 AM EST 1 mg Intramuscular aborted 1 mg, Intramuscular, PRN, for glucose <55 without IV access, Starting Thu07/15/19 at 0100, For 30 days [facility] Medication administered onsite Famotidine 0.4 MG/ML Injectable Solution famotidine (PEPCID) in sodium chloride 0.9 % IVPB 20 mg (premix) famotidine (PEPCID) in sodium chloride 0 .9 % IVPB 20 mg (premix) 07/15/2019 01:00:00 AM EST 20 mg Intravenous a borted 20 mg, Intravenous, Administer over 15 Minutes, Every 12 hours, First dose (after last modification) on Thu07/15/19 at 0100, For 1 day [facility] Medication administered onsite dexamethasone (DECADRON) injection 8 mg [id number] 07/15/19 20 01:00:00 AM EST 8 mg Intravenous completed 8 mg, Intr avenous, Once, Thu07/15/19 at 0100, For 1 dose [facility] Medication administered onsite diphenhydrAMINE (BENADRYL) injection 25 mg [id number] 07/15/2019 12:00:00 AM EST 25 mg Intravenous completed 25 mg, Intravenous, Once, Thu07/15/19 at 0000, For 1 dose [facility] Medication administered onsite sodium chloride 0.9 % bolus 1,000 mL [id number] 07/14/2019 07:30: 00 PM EST 1000 mL Intravenous completed 1,000 mL , Intravenous, Once, Thu07/14/19 at 1930, For 1 dose [facility] Medication administered onsite iohexol (OMNIPAQUE) 350 MG/ML contrast injection 100 mL [id number] 07/14/2019 05:30:00 PM EST 100 mL Given by IV completed 100 mL, Given by IV, 1 TIME IMAGING, Thu07/14/19 at 1730, For 1 dose [facility] Medication administered onsite 200 mg 05/26/2019 12:00:00 [...] 12 :00:00 AM EST 300 mg completed [id number] Seroquel 04/05/2019 0 06/01/2019 at bedtime 30 300 mg tablet [id number] Melvin Daugherty [id number] [facility]) Trazodone Hydrochloride 150 MG Oral Tablet trazodone 01/14 12:00:00 AM EDT 150 mg completed [id number] trazodone 201806/13/2019 at bedtime 30 150 mg tablet [id number] Melvin Daugherty 3 [id number] [facility] Trazodone Hydrochloride 150 MG Oral Tablet trazodone 01/14 12:00:00 AM EDT 150 mg completed [id number] trazodone 201806/13/2019 at bedtime 30 150 mg tablet [id number] Melvin Daugherty 3 [id number] [facility] ([facility]) Trazodone Hydrochloride 150 MG Oral Tablet trazodone 01/14 12:00:00 AM EDT 150 mg completed [id number] trazodone 201806/01/2019 at bedtime 30 150 mg tablet [id number] Melvin Daugherty 3 [id number] [facility] ([facility]) Melatonin 3 MG Oral Tablet melatonin 3 MG TABS melatonin 3 M G TABS 10/17/2014 12:00:00 AM EDT 3 mg Oral aborted Take 1 tablet by mouth nightly. [facility] Lurasidone Hydrochloride 40 MG Oral Tablet Lurasidone HCl (LATUDA) 40 MG TABS Lurasidone HCl (LATUDA) 40 MG TABS 07/10/2014 12:00:00 AM EST 40 mg Oral aborted Take 1 tablet by mouth daily. [facility] Nicotine 2 MG Chewing Gum nicotine (polacrilex) 2 mg g um nicotine (polacrilex) 2 mg gum completed nicotine 2 MG Chewing Gum [facility] ([facility]) Clindamycin 300 MG Oral Capsule clindamy lashawn HCl 300 mg capsule TAKE 1 CAPSULE BY MOUTH 4 TIMES A DAY DIRECTED 8AM 1P.M 5PM 9PM FOR 7 DAYS clindamycin HCl 300 mg capsule TAKE 1 CAPSULE BY MOUTH 4 TIMES A DAY DIRECTED 8AM 1P.M 5PM 9PM FOR 7 DAYS completed clindamycin 300 MG Oral Capsule DU[facility]IS ([facility]) quetiapine 200 MG Oral Tablet quetiapine 200 mg tablet TAKE 2 AND 1/2 TABLETS BY MOUTH AT BEDTIME FOR MOOD quetiapine 200 mg tablet TAKE 2 AND 1/2 TABLETS BY MOUTH AT BEDTIME FOR MOOD completed quetiapine 200 MG Oral Tablet [facility] ([facility]) Lisinopril 20 MG Oral Tablet lisinopril (PRINIVIL,ZEST RIL) 20 MG tablet lisinopril (PRINIVIL,ZESTRIL) 20 MG tablet 20 mg Oral aborted Take 20 mg by mouth daily [facility] Insurance Providers Payer name Policy type / Coverage type Policy ID Covered constitution party ID Covered constitution party's relationship to bright Policy Bright Plan Information [facility] COMMUNITY PLAN [facility] [place] [id number] SP [id number] MEDICAID [id number] Unemployed [id number] [facility] [id number] Unemploye d [id number] [facility] [id number] S [id number] STPP Wrap [id number] Total Care Inc [id number] [facility] I [id number] Self [id number] Managed Care - [facility] Community Plan P [id number] S [id number] Medicaid S [id number] S [id number] [facility] I [id number] Self [id number] [facility] I [id number] Self [id number] UHC I [id number] Self [id number] [facility] I [id number] Self [id number] UHC I [id number] Self [id number] UHC I [id number] Self [id number] UNHC COMMUNITY PLAN MCDHMO [id number] SP [id number] [facility] [place] [id number] SP [id number] [facility] O [id number] S [id number] Managed Care - [facility] Community Plan P [id number] S [id number] Managed Care - Community Plan [facility] P [id number] S [id number] Medicaid S [id number] S [id number] UNHC COMMUNITY PLAN MCDHMO [id number] SP [id number] UNHC COMMUNITY PLAN MCDHMO [id number] SP [id number] MEDICAID [id number] SP [id number] [place] Part B [id number] Self [id number] [facility] Commercial [id number] Self [id number] Managed Care - Community Plan [facility] P [id number] S [id number] [facility] GARBAGE PERSON DEPT [id number] SP [id number] [facility] [place] [id number] SP [id number] Uh-Community Plan-[place] Commercial [id number] Self [id number] [facility]-Community Plan-[place] Commercial [id number] Self [id number] [place] [id number] Self [id number] [facility] Commercial [id number] Self [id number] Medicaid S [id number] S [id number] Self Pay P [id number] S [id number] SELF PAY ONLY [id number] SP [id number] Managed Care - Community Plan [facility] P [id number] S [id number] [facility]) O [id number] S [id number] [place] Part [place] [id number] Self [id number] [employer] COMMUNITY PLAN MCDHMO [id number] SP [id number] UNHC COMMUNITY PLAN MCDHMO [id number] SP [id number] Managed Care - Community Plan [facility] P [id number] S [id number] [facility]-Community Plan-[place] Commercial [id number] Self [id number] [facility] [id number] SP [id number] [facility] MEDICAID UNITED [facility] HEAL [id number] Radha [id number] MEDICAID [id number] Radha [id number] UNHC COMMUNITY PLAN MCDHMO [id number] SP [id number] UNHC COMMUNITY PLAN MCDO [id number] SP [id number] UNHC COMMUNITY PLAN MCDHMO [id number] SP [id number] [employer] [id number] SP [id number] [employer] O [id number] S [id number] T[employer] C[employer] INC O [id number] S [id number] [employer]YS OPT[employer]/GUAMANIAN O [id number] S [id number] [place] [id number] SP [id number] MEDICAID M [id number] S [id number] TOTAL CARE I [id number] Self [id number] TOTAL CARE I [id number] Self [id number] TOTAL CARE I [id number] Self [id number] TOTAL CARE I [id number] Self [id number] SELF PAY UNAVAILABLE SP UNAVAILA BLE MEDICAID M [id number] Self [id number] TOTAL CARE I [id number] Self [id number] TOTAL CARE I [id number] Self [id number] MEDICAID M [id number] Self [id number] TOTAL CARE I [id number] Self [id number] MEDICAID GME W [id number] S [id number] PCP TOTAL CARE O [id number] S [id number] MEDICAID W [id number] S [id number] SELF PAY 2 UNAVAILABLE 1 UNAVAILA BLE TOTAL CARE MEDICAID 2 [id number] SSI 1 [id number] SSI [place] 3 [id number] Problems, Conditions, and Diagnoses Code Display Name Description Problem Type Effective Dates Data Source(s) F15.10 Other stimulant abuse, uncomplicated Sti mulant Use Disorder, Mild: Other or unspecified stimulant Condition 07/16/2020 12:00:00 AM EST [facility] ([facility]) Z72.0 Tobacco use Tobacco Use Disorder, Mild Condition 0 07/16/2020 12:00:00 AM EST [facility] ([facility]) F10.20 Alcohol dependence, uncomplicated Alcohol Use Di sorder, Moderate Condition 07/16/2020 12:00:00 AM EST [facility] ([facility]) F29 Unspecified psychosis not du e to a substance or known physiological condition Unspecified Schizophrenia Spectrum and Other Psychotic Disorder Condition 07/16/2020 12:00:00 AM EST [facility] ([facility]) F31.9 Bipolar disorder, unspecified Bipolar I Disorder, Current or most recent episode unspecified Condition 07/20/2019 12:00:00 AM EST [facility]) F20.9 Schizophrenia, unspecified Schizophrenia Condition 07/20/2019 12:00:00 AM EST [facility] ([facility]) Z87.891 Personal history of nicotine dependence PERSONAL HISTORY OF NICOTINE DEPENDENCE Diagnosis 04/25/2020 12:12:00 PM [facility] E11.9 Type 2 diabetes mellitus without complic ations TYPE 2 DIABETES MELLITUS WITHOUT COMPLICATIONS Diagnosis 04/25/2020 12:12:00 PM [facility] I10 Essential (primary) hypertension ESSENTIAL (PRIMARY) H YPERTENSION Diagnosis 04/25/2020 12:12:00 PM [facility] M47.896 Other spondylosis, lumbar region OTHER SPONDYLOS IS, LUMBAR REGION Diagnosis 04/25/2020 12:12:00 PM [facility] M54.5 Low back pain LOW BACK PAIN Diagnosis 04/25/2020 12:12:00 PM [facility] F15.20 Other stimulant dependence, uncomplicate d OTHER STIMULANT DEPENDENCE, UNCOMPLICATED Diagnosis 04/23/2020 02:00:00 PM [facility] Z13.220 Encounter for screening for lipoid disor ders ENCOUNTER FOR SCREENING FOR LIPOID DISORDERS Diagnosis 12/01/2019 08:36:00 PM EDT [facility] Z11.59 Encounter for screening for other viral diseases ENCOUNTER FOR SCREENING FOR OTHER VIRAL DISEASES Diagnosis 11/03/2019 10:31:00 PM EDT [facility] K59.00 Constipation, unspecified CONSTIPATION, UNSPECIFIED Di agnosis 07/25/2019 12:31:00 PM [facility] K08.89 Other specified disorders of teeth and s upporting structures OTHER SPECIFIED DISORDERS OF TEETH AND SUPPORTING STRUCTURES Diagnosis 07/25/2019 12:31:00 PM [facility] F31.9 Bipolar disorder, unspecified BIPOLAR DISORDER, UNSPEC IFIED Diagnosis 07/25/2019 12:31:00 PM [facility] F20.9 Schizophrenia, unspecified SCHIZOPHRENIA, UNSPECIFIED Diagnosis 07/25/2019 12:31:00 PM [facility] E55.9 Vitamin D deficiency, unspecified VITAMIN D DEFI CIENCY, UNSPECIFIED Diagnosis 07/25/2019 12:31:00 PM [facility] H54.62 Unqualified visual loss, left eye, favio l vision right eye UNQUALIFIED VISUAL LOSS, LEFT EYE, NORMAL VISION RIGHT EYE Diagnosis 020 12:31:00 PM [facility] J44.9 Chronic obstructive pulmonary disease, u nspecified CHRONIC OBSTRUCTIVE PULMONARY DISEASE, UNSPECIFIED Diagnosis 07/25/2019 12:31:00 PM [facility] Z87.820 Personal history of traumatic brain inju ry PERSONAL HISTORY OF TRAUMATIC BRAIN INJURY Diagnosis 07/25/2019 12:31:00 PM [facility] Z68.36 Body mass index (BMI) 36.0-36.9, adult B JOSE ANTONIO MASS INDEX (BMI) 36.0-36.9, ADULT Diagnosis 07/25/2019 12:31:00 PM 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 Suicidal ideations Suicidal ideations Diagnosis 0 05:21:42 PM [facility] suicidal ideation suicidal ideation Diagnosis 07/15/2019 05:21:42 PM [facility] I10 Essential (primary) hypertension Essential (primary) h ypertension Diagnosis 07/14/2019 05:18:53 PM [facility] R47.01 Aphasia Aphasia Diagnosis 07/14/2019 05:18:53 PM [facility] R53.1 Weakness Weakness Diagnosis 07/14/2019 05:18:53 PM [facility] R41.82 Altered mental status, unspecified Altered menta l status, unspecified Diagnosis 07/14/2019 05:18:53 PM [facility] G93.40 Encephalopathy, unspecified Encephalopathy, unspecifie d Diagnosis 07/14/2019 05:18:53 PM [facility] possible stroke possible stroke Diagnosis 07/14/2019 05:1 8:53 PM [facility] I11.0 Hypertensive heart disease with heart fa ilure HYPERTENSIVE HEART DISEASE WITH HEART FAILURE Diagnosis 05/31/2019 09:46:00 AM [facility] R51 Headache HEADACHE Diagnosis 05/31/2019 09:46:00 AM [facility] I50.30 Unspecified diastolic (congestive) heart failure UNSPECIFIED DIASTOLIC (CONGESTIVE) HEART FAILURE Diagnosis 05/31/2019 09:46:00 AM [facility] Surgeries/Procedures Procedure Description Date Indications Data Source(s) OFFICE OUTPATIENT VISIT 15 MINUTES 07/16 12:00:00 AM [facility] - 07/16/2020 12:00:00 AM [facility] ([facility]) OFFICE OUTPATIENT VISIT 15 MINUTES 07/16/2020 12:00:00 AM EST [facility] ([facility]) Psychiatric Diagnostic Evaluation with Medical Services 06/25/2020 12:00:00 AM EST - 06/25/2020 12:00:00 AM EST [facility] ([facility]) Psychiatric Diagnostic Evaluation with Medical Services 06/25/2020 12:00:00 AM EST [facility] ([facility]) Psychiatric Diagnostic Evaluation (Non-Medical) 06/19/2020 12:00:00 AM EST - 06/19/2020 12:00:00 AM EST [facility] ([facility]) Psychiatric Diagnostic Evaluation (Non-Medical) 2020 12:00:00 AM EST [facility] ([facility]) Psychiatric Diagnostic Evaluation (Non-Medical) 06/05/2020 12:00:00 AM EST - 06/05/2020 12:00:00 AM EST [facility] ([facility]) Psychiatric Diagnostic Evaluation (Non-Medical) 2020 12:00:00 AM EST [facility] ([facility]) Brief Individual Psychotherapy - 30 min 05/09/2020 12:00:00 AM EST - 05/09/2020 12:00:00 AM EST [facility] ([facility]) Brief Individual Psychotherapy - 30 min 05/09/2020 12: 00:00 AM [facility] ([facility]) CT LUMBAR SPINE W/O CONTRAST MATERIAL CT LUMBAR SPINE W/O DY E 04/25/2020 12:00:00 AM [facility] Non-covered item or service NON-COVERED ITEM OR SERVICE 06/2019 12:00:00 AM [facility] EMERGENCY DEPARTMENT VISIT HIGH/URGENT SEVERITY EMERGENCY DE PT VISIT 04/25/2020 12:00:00 AM [facility] Alcohol and/or substance (other than tob acco) abuse structured assessment (e.g., audit, dast), and intervention, greater than 30 minutes 04/23/2020 12:00:00 AM [facility] Alcohol and/or substance (other than tob acco) abuse structured assessment (e.g., audit, dast), and brief intervention 15 to 30 minutes 04/02/2020 12:00:00 AM [facility] Alcohol and/or drug services; group counseling by a bethany n 03/13/2020 12:00:00 AM EDT [facility] Individual Counseling for Substance Abuse Treatment, C ognitive-Behavioral INDIV CENTRAL SUPPLY ASSISTANT FOR SUBSTANCE ABUSE, COGNITIVE BEHAVIORAL 07/27/2019 12:00:00 AM [facility] Group Counseling for Substance Abuse Treatment, Motiva tional Enhancement GROUP CENTRAL SUPPLY ASSISTANT FOR SUBSTANCE ABUSE, MOTIVATIONAL ENHANCE 07/27/2019 12:00:00 AM [facility] Group Counseling for Substance Abuse Treatment, Spirit ual GROUP COUNSELING FOR SUBSTANCE ABUSE TREATMENT, SPIRITUAL 07/27/2019 12:00:00 AM [facility] Group Counseling for Substance Abuse Treatment, Cognit sigrid-Behavioral GROUP CENTRAL SUPPLY ASSISTANT FOR SUBSTANCE ABUSE, COGNITIVE BEHAVIORAL 07/27/2019 12:00:00 AM [facility] POCT GLUCOSE, DOCKED POCT GLUCOSE, DOCKED Routine 07/25/2019 6:26 AM EST 07/25/2019 11:26:00 AM [facility] POCT GLUCOSE, DOCKED POCT GLUCOSE, DOCKED Routine 07/24/2019 5:39 PM EST 07/24/2019 10:39:00 PM [facility] HEMOGLOBIN GLYCOSYLATED A1C HEMOGLOBIN A1C Routine 07/20/2019 6:13 AM EST 07/20/2019 11:13:00 AM [facility] LIPID PANEL LIPID PANEL Routine 07/20/2019 6:13 AM EST 07/20/2019 11:13:00 AM [facility] OFFICE OUTPATIENT VISIT 15 MINUTES 07/20 12:00:00 AM EST - 07/20/2019 12:00:00 AM EST [facility] ([facility]) OFFICE OUTPATIENT VISIT 15 MINUTES 07/20/2019 12:00:00 AM EST [facility] ([facility]) PALIPERIDONE SERUM PALIPERIDONE SERUM Routine 07/18/2019 2:[address] 07/18/2019 07:45:00 PM [facility] GLUCOSE QUANTITATIVE BLOOD XCPT REAGENT STRIP POCT GLUCOSE, DOC KED Routine 07/15/2019 5:46 PM EST 07/15/2019 10:46:00 PM [facility] POCT GLUCOSE, DOCKED POCT GLUCOSE, DOCKED Routine 07/15/2019 12:02 PM EST 07/15/2019 05:02:00 PM [facility] POCT GLUCOSE, DOCKED POCT GLUCOSE, DOCKED Routine 07/15/2019 8:06 AM EST 07/15/2019 01:06:00 PM [facility] DRUGS OF ABUSE, URINE DRUGS OF ABUSE, URINE STAT 07/15/2019 1:3 7 AM EST 07/15/2019 06:37:00 AM [facility] URNLS DIP STICK/TABLET REAGENT AUTO MICROSCOPY URINALYSIS W ITH MICROSCOPIC STAT 07/15/2019 1:37 AM EST 07/15/2019 06:37:00 AM [facility] GLUCOSE QUANTITATIVE BLOOD XCPT REAGENT STRIP POCT GLUCOSE, DOC KED Routine 07/14/2019 10:05 PM EST 07/15/2019 03:05:00 AM [facility] XR CHEST FRONTAL ONLY 80951 XR CHEST FRONTAL ONLY 36077 STAT 07/14/2019 6:00 PM EST 07/14/2019 11:00:00 PM [facility] THROMBOPLASTIN TIME PARTIAL PLASMA/WHOLE BLOOD PARTIA L THROMBOPLASTIN TIME (PTT) STAT 07/14/2019 5:48 PM EST 07/14/2019 10:48 :00 PM [facility] ACETAMINOPHEN, RANDOM ACETAMINOPHEN, RANDOM STAT 07/14/2019 5:4 8 PM EST 07/14/2019 10:48:00 PM [facility] ETHYL ALCOHOL LEVEL ETHYL ALCOHOL LEVEL STAT 07/14/2019 5:48 PM EST 07/14/2019 10:48:00 PM [facility] PROTHROMBIN TIME PROTIME INR STAT 07/14/2019 5:48 PM EST 07/14/2019 10:48:00 PM [facility] BLOOD COUNT COMPLETE AUTO&AUTO DIFRNTL WBC COUNT CBC AND DIFFER ENTIAL STAT 07/14/2019 5:48 PM EST 07/14/2019 10:48:00 PM [facility] THYROID STIMULATING HORMONE TSH TSH STAT 07/14/2019 5:48 PM EST 07/14/2019 10:48:00 PM [facility] THYROXINE FREE T4, FREE STAT 07/14/2019 5:48 PM EST 07/14/2019 10:48:00 PM [facility] CARBOXYHEMOGLOBIN QUANTITATIVE CARBOXYHEMOGLOBIN STAT 06/26 5:48 PM EST 07/14/2019 10:48:00 PM [facility] SALICYLATE LEVEL SALICYLATE LEVEL STAT 07/14/2019 5:48 PM EST 07/14/2019 10:48:00 PM [facility] COMPREHENSIVE METABOLIC PANEL COMPREHENSIVE METABOLIC PANEL STA T 07/14/2019 5:48 PM EST 07/14/2019 10:48:00 PM [facility] TROPONIN QUANTITATIVE POCT ISTAT TROPONIN STAT 07/14/2019 5:46 PM EST 07/14/2019 10:46:32 PM [facility] EKG 12-LEAD - CMAXX REPORT EKG 12-LEAD - CMAXX REPORT 07/14/2019 5:40 PM EST 07/14/2019 10:40:56 PM [facility] EKG 12-LEAD - CMAXX REPORT EKG 12-LEAD - CMAXX REPORT 07/14/2019 5:40 PM EST 07/14/2019 10:40:56 PM [facility] EKG 12-LEAD EKG 12-LEAD STAT 07/14/2019 5:40 PM EST 07/14/2019 10:40:56 PM [facility] BASIC METABOLIC PANEL CALCIUM IONIZED POCT ISTAT CHEM8 Routine 07/14/2019 5:40 PM EST 07/14/2019 10:40:00 PM [facility] EKG 12-LEAD - CMAXX REPORT EKG 12-LEAD - CMAXX REPORT 07/14/2019 5:40 PM EST 07/14/2019 10:40:00 PM [facility] BLOOD GASES ANY COMBINATION PH PCO2 PO2 CO2 HCO3 POCT ISTAT VBG /LAC Routine 07/14/2019 5:36 PM EST 07/14/2019 10:36:00 PM [facility] TROPONIN QUANTITATIVE POCT ISTAT TROPONIN Routine 07/14/2019 5:35 PM EST 07/14/2019 10:35:[address] [facility] CT ANGIOGRAPHY NECK W/CONTRAST/NONCONTRAST CT ANGIOGRAPHY NECK [id number] STAT 07/14/2019 5:34 PM EST 07/14/2019 10:34:[address] [facility] CT ANGIOGRAPHY HEAD W/CONTRAST/NONCONTRAST CT ANGIOGRAPHY HEAD [id number] STAT 07/14/2019 5:34 PM EST 07/14/2019 10:34:25 PM [facility] Brief Individual Psychotherapy - 30 min 07/01/2019 12:00:00 AM EST - 07/01/2019 12:00:00 AM EST [facility] ([facility]) Brief Individual Psychotherapy - 30 min 07/01/2019 12: 00:00 AM EST [facility] ([facility]) OFFICE OUTPATIENT VISIT 15 MINUTES 06/10 12:00:00 AM EST - 06/10/2019 12:00:00 AM EST [facility] ([facility]) OFFICE OUTPATIENT VISIT 15 MINUTES 06/10/2019 12:00:00 AM EST [facility] ([facility]) Extended Individual Psychotherapy - 45 min 05/31/2019 12:00:00 AM EST - 05/31/2019 12:00:00 AM EST [facility] ([facility]) Extended Individual Psychotherapy - 45 min 0 12:00:00 AM EST [facility] Results ID Date Data Source [id number] 04/25/2020 12:12:00 PM [facility] Name: AKBAR FLORES [facility] Rec #: [id number] : 1965 Age/Sex: 55M Date of Service: 04/25/20 PHYSICIAN CHART Physician Documentation [facility] Name: Akbar Flores Age: 55 yrs [...] yrs old Male presents to ER via [facility] with complaints of Back Pain. 14:39 [...] Index 27.86 (98.43 kg, 187.96 cm) dk2 Herald Coma Score: 13:55 Eye Response: spontaneous(4). Verbal [...] Back Pain, Adult cpg - Back Exercises, Eqyq-ef-Yrdm cpg Forms: - Medication Reconciliation cpg Prescriptions: - Ibuprofen 800 mg Oral Tablet - take 1 tablet by ORAL route every 8 hours As needed cpg take with food; 30 tablet; Refills: 0, Product Selection Permitted - Cyclobenzaprine 10 mg Oral Tablet - take 1 tablet by ORAL route every 8 hours; 30 cpg tablet; Refills: 0, Product Selection Permitted Signatures: Dispatcher [employer] EDSam Garrett, NICANOR DIRECT CARE WORKER cpg Luanne Zambrano, RN RN omar6 Christi Fan RN RN dk2 Red Simeon RN RN lillyr Kev Jenkins, DO DO ml8 Name Value Range Interpretation Code Description Data Hedy rce(s) Supporting Document(s) ID Date Data Source [id number] 04/25/2020 12:12:00 PM [facility] Name: AKBAR FLORES [facility] Rec #: [id number] : 1965 Age/Sex: 55M Date of Service: 04/25/20 NURSE CHART Nurse's Notes [facility] Name: kAbar Flores Age: 55 yrs Sex: Male : 1965 Arrival Date: 04/25/2020 Time: 12:12 Bed FT3 Private MD: Dr. Trev Diagnosis: Acute Low Back Pain Presentation: 04/25 12:22 Transition of care: patient was not received from another [facility] setting of care. Presenting complaint: Patient states [...] or COVID-19? No. 12:22 Method Of Arrival: [facility] dk2 12:22 Acuity: Semi-Urgent - 4 [...] Index 27.86 (98.43 kg, 187.96 cm) dk2 Herald Coma Score: 13:55 Eye Response: spontaneous(4). Verbal [...] is Attending Physician. cpg 12:39 Red Simeon, RN is Primary Nurse. awr 12:51 Patient has [...] Route: PO; Outcome: 14:05 Discharge ordered by MD. cpg 14:17 Patient verbalized understanding of disposition awr instructions. Patient has no functional deficits. 14:17 Patient discharged [facility] 14:17 Condition: stable 14:17 Discharge instructions given to patient, Patient was instructed on discharge instructions, follow up and referral plans, medication usage, Prescriptions given X 2. 14:17 Vitals are Complete in accordance with Emergency Department Policy. 14:18 Patient left the ED. awr 12 12:40 24 hour call back completed with no concerns vocalized. jose Signatures: Sam Wynn NP NP cpg Luanne Zambrano RN RN 6 Christi Fan RN RN dk2 Red iSmeon, EDWARD RN awr Radha Saha, RN Debo Cid Corrections: (The following items were deleted from [...] rce(s) Supporting Document(s) ID Date Data Source [id number] 04/25/2020 12:12:00 PM [facility] Name: AKBAR FLORES [facility] Rec #: [id number] : 1965 Age/Sex: 55M Date of Service: 04/25/20 DISPOSITION SUMMARY Discharge Summary [facility] Name:Akbar Flores Emergency Department Age:55 yrs [...] every 8 hours; 30 tablet Custom Notes: Akbar appears you have some bulging disc at [...] Acute Back Pain, Adult, Ba ck Exercises, Vafw-pu-Gvlz, Medication Reconciliation Name Value Range Interpretation Code Description Data Hedy rce(s) Supporting Document(s) ID Date Data Source [id number] 04/26/2020 06:23:00 AM [facility] Name: AKBAR FLORES : 1965 Age/Sex: 55M Ordering Provider: NICO Mccormick [facility] Rec #: [id number] Reg Status: [facility] Room #: Date of Service: 04/25/20 Report Number: [id number] cc:PCP None Send Report To: [id number] CT/CT Lumbar Spine No Contrast Reason for [...] MD <Electronically signed by Chetan Khan MD> 04/26/20920 Dictation Date/Time: 04/25/20 1342 Transcribed Date/Time: 04/26/20 06 Research Physiologist: DELL Name Value Range Interpretation Code Description Data Hedy rce(s) Supporting Document(s) ID Date Data Source [id number] 12/01/2019 09:52:00 PM EDT [facility] Name Value Range Interpretation Code Description Data Hedy rce(s) Supporting Document(s) White Blood Count 4.8-10.8 Normal (applies to non-numeri c results) [facility] Red Blood Count 4.35-6.08 Normal (applies to non-numeric results) [facility] Hemoglobin 13.0-17.5 Below low normal [facility] Hematocrit 37.7-51.0 Below low normal [facility] Mean Corpuscular Volume 80-94 Normal (applies to non- numeric results) [facility] Mean Corpuscular Hemoglobin 27.0-33.0 Normal (appli es to non-numeric results) [facility] Mean Corpuscular HGB Conc 32.0-36.0 Normal (applies to no n-numeric results) [facility] Red Cell Distribution Width 11.5-14.5 Normal (appli es to non-numeric results) [facility] Platelet Count 243 X10 3/uL 130-450 Normal (applies to non-numeric results) [facility] Mean Platelet Volume 9.6-13.1 Normal (applies to non-num jean-claude results) [facility] Imm Grans% (AUTO) 1 % 0-2 Normal (applies to non-numeri c results) [facility] Neutrophils % (AUTO) 37 % 40-75 Below low normal Ca [facility] Lymphocytes % (AUTO) 50 % 21-46 Above high normal C [facility] Monocytes % (AUTO) 8 % 5-12 Normal (applies to non-numer ic results) [facility] Eosinophils % (AUTO) 4 % 1-5 Normal (applies to non-num jean-claude results) [facility] Basophils % (AUTO) 1 % 0-1 Normal (applies to non-numer ic results) [facility] Imm Grans# (AUTO) 0.0-0.5 Normal (applies to non-numeri c results) [facility] Neutrophils # (AUTO) 1.5-8.1 Normal (applies to non-num jean-claude results) [facility] Lymphocytes # (AUTO) 1.0-3.1 Above high normal C [facility] Monocytes # (AUTO) 0.2-1.3 Normal (applies to non-numer ic results) [facility] Eosinophils# (AUTO) 0.0-0.5 Normal (applies to non-nume aline results) [facility] Basophils # (AUTO) 0.0-0.1 Normal (applies to non-numer ic results) [facility] ID Date Data Source [id number] 11/07/2019 06:22:00 AM EDT [facility] COVID-19 Specimen Source NASOPHARYNGEAL Name Value Range Interpretation Code Description Data Hedy rce(s) Supporting Document(s) SARS-CoV-2 RNA Undetected Normal (applies to non-numeric r esults) [facility] SARS-CoV-2 RNA absent. This result does not rule out COVID-19 in the patient, as the sensitivity of the test depends on the timing of the specimen collection and the quality of the specimen. Result should be correlated with patient's history and clinical presentation. ADDITIONAL INFORMATION This test using the brandon SARS-CoV-2 assay ([employer] performed on the brandon [employer] System has received Emergency Use Authorization (EUA) by the U.S. Food and Drug Administration, and is modified from the mechanic recovery's instructions with a bridging study. Performance characteristics were verified by [facility] in a manner consistent with CLIA requirements. Fact sheets for this Emergency Use Authorization (EUA) assay can be found at the following links: For Healthcare Providers: https://www.fda.gov/media/503227/download For Patients: https://www.fda.gov/media/692317/download Test Performed by: [facility] [address] [place] [address] Food Sales Clerk: Curt Weber M.D. Ph.D.; CLIA# [id number] ID Date Data Source [id number] 11/03/2019 09:31:00 PM EDT [facility] Name Value Range Interpretation Code Description Data Hedy rce(s) Supporting Document(s) SARS-CoV-2 RNA Resp Ql VIANA+probe [facility] This lab was ordered by [facility] no and reported by [facility] DLMP. ID Date Data Source [id number] 08/26/2019 07:55:00 AM EDT [facility] Name Value Range Interpretation Code Description Data Hedy rce(s) Supporting Document(s) LAB Glucose,Fingerstick 115 mg/dL 70-110 Above high normal [facility] ID Date Data Source [id number] 08/25/2019 09:47:00 PM EDT [facility] Name Value Range Interpretation Code Description Data Hedy rce(s) Supporting Document(s) LAB Glucose,Fingerstick 205 mg/dL 70-110 Above high normal [facility] ID Date Data Source [id number] 08/25/2019 04:49:00 PM EDT [facility] Name Value Range Interpretation Code Description Data Hedy rce(s) Supporting Document(s) LAB Glucose,Fingerstick 129 mg/dL 70-110 Above high normal [facility] ID Date Data Source [id number] 08/25/2019 11:58:00 AM EDT [facility] Name Value Range Interpretation Code Description Data Hedy rce(s) Supporting Document(s) LAB Glucose,Fingerstick 176 mg/dL 70-110 Above high normal [facility] ID Date Data Source [id number] 08/13/2019 10:46:58 PM EDT [facility] Name Value Range Interpretation Code Description Data Hedy rce(s) Supporting Document(s) Consultation [facility] DVUTQa2rRdFMXgIf03/MJYimYLKhp1NzWGrhHHn9HDeiMNCsH0IjZRV1pS0bKTH8NAnOQlTxPoEcMjKy lbm [file] +rj4A5taZh4eU0fofi7tc1WXka4zl5FohMpO/0q6+Concepción/bASYh4rl5+Pep8GP6+Ux00UnJ520b49tSX/ [file] environmental engineering intern+urOuONNGbS9bPv9SG4XomZRwSVOqxPl4xuUAhw [file] RPTODaeUw+O2HxQ8BlglIPoRW0buCAsKbk5cvyMn/byKVapWZ77/SUPERVISOR FRUIT GRADING+dMGAmIhw2sMR1ngi/Wvzs4rD [file] DQplbmRvYmoNCnhyZWYNCjAgNTgNCjAwMDAwMDAwMD YaMrZ1HxOlDa0GGEJhMGXjVIGpRaYaYOEeLYXoHReiJAKeBzIcTHQ1ULJmBLJkHA4LVgVaCKTwKOE9UR ftSARjKSZpkf1ZLULfCTTpPCK4TaEgVIErSDHtQEnvSSAcMHVgGXIdQAUiXVGyXR3XJeUzSQLsLNY2LS XwMQFeKUWxke3GWYFwDKPkLwV2DzEsZFLcMJVdGIvt SWTkKDS9SykcVUTzMGCjJT0WHvRzBSDtVMfzZvNuMREzGLCttb1QIMTsPJVxNUA5BPVvGNWmDYEkMNli BNFlTKOkHRBjYBYbMZTyNH9KElYrIEClFSX2XlfqXTTjPRSsif9UMUUlVBAeBTNeXKBrWEOhZNDiLUph JFBgGLP4CXB2XBReBJMqTQ0RLgGaGFFzYMQ7KHDbVJ WhOHMttq7LIWJuOZZdYKppPoAfSLNsHPZaOEmgWBHzXSE4OWM8VJTtLSTvNK4SSuXoSVPmAKR9KTQkPM XfDDIhnn2OUJSyWXWpVPV5GkVgNVArVZMcGNrlWZNlCDS4ReogYIAkHHZwOS0HAsVfLTNoRUg3LXubJE HhNMElqe8BYYFlUGE8KqI6MBEyBUTkHZOpQPcbJITk WKNdGSviEQTqTCQdCM4QHhHfDNTgXbBeXSFcSCHdMMMlcy6NWLLzBCXbDZJ5NOPaKXIbXWHzGNppYONi PDMnBAPrXURlOGAcDW6BAxByJJIlRuAwNJEaHRNyBOCkvn1LDYYfCNImEoD1PtUxTAPtGMDaXItdEEJg VLJbWwjhYTGcXLGdRB6GGdSwWNWeOiI5MYKdIEZmOG Idff8IXPDaMVErLsd4RsCeAJKuHDHtVAkpQWWgSLX0OTO1QAEqFRLrJY2HVuNfXQBnUzW8VdQfZOLyWP Gwhx3TYPVbZAQyJHe2KKKlXLGdYRLfSLfbKOVlSFA4CDW1CGCiEBNwMK8JAcPqDRKsGnAdCMltWSKfHB Cwea1HHXRvXRKxXhRuCHDjTWBgZLViBBwwLFIpAIG9 Lju5MPDtDYPeWH8CYiIlPHGtTgl0TeXzZMNxZGUnhv3NZXNmZEHuByq6DBUmNQDtAWZjQFvkYCCoEND4 Lbv0JNVyMSRtYG0NBtEaCKNwTff3WAVrPRGaOWMxrz1XYUYbVOWkMZR2HwEzPKOqOGXdCTdhFVSvAKX2 KUT5HUNhTNKfXO3PMbXiTUQbMVE5XIDcCKYhSMOfph 2PMNIxGCF3SER8ZYBgPQWdVBEdDAgcMSJtETQ8ICt7RHOkFQZvUA5XAxLnIDNgWPw8BDRrMFFsXWJyhp 5FPTRvFIPsCAmlDeUzTAFdUMKsODdzGGRvWkY3QznkFUIlGTBcZU0NDjAxCCLgAoI8MCTiNZHzUEMhqg 8WIRKtQKL7DiEkEUNeVXUkCTWmMGenDDGxBnKeAIB4 XEGnXEYiFG5VPxPhCYFvFAC7VvxpWZInTIJxbt7BHIQhJEX2OnY1IWPuVJEnIYOhPBnpTWKzScZwOKDk BEQoHKKsVC6ANmCwWNHbFHI1DJzrDCSsBSNldy2CnDSxaCxgca5LJJqHPp4NaBjkNWL6RYjyLv0snWS6 XkFwQNNJTb7HpoCgOMBcJFPAUDrjNUDxIOZ3EqF5Zl r5Yts4JlIxNnD1WpbrHsq3QFQ6GssjCYPvSgV3SYt4KFywQbN3AcKlCJI8WVCbN0TnWTy9HzMnYHF8Nu I+FW8gVIi+Oo8We8JtznD4odIdIRpqEBO9QoRAEoIyWV1AOQh= ID Date Data Source [id number] 07/26/2019 11:45:00 AM EST [facility] Name Value Range Interpretation Code Description Data Hedy rce(s) Supporting Document(s) Sodium 138 mmol/L 137-145 Normal (applies to non-numeric resul ts) [facility] Potassium 3.5-5.1 Normal (applies to non-numeric resul ts) [facility] Chloride 103 mmol/L 98-112 Normal (applies to non-numeric resul ts) [facility] Carbon Dioxide CO2 22.0-33.0 Normal (applies to non-numer ic results) [facility] Anion Gap 4.0-11.0 Normal (applies to non-numeric resul ts) [facility] BUN 10 mg/dL 9-20 Normal (applies to non-numeric resul ts) [facility] Creatinine 0.80-1.50 Normal (applies to non-numeric resul ts) [facility] GFR 85 mL/min >60 Normal (applies to non-numeric resul ts) [facility] Result based on MDRD formula. Glucose Level 140 mg/dL 74-99 Above high normal [facility] The reference range is only applicable w hen fasting. Calcium-Uncorrected 8.4-10.2 Normal (applies to non-nume aline results) [facility] Corrected Calcium 8.4-10.2 Normal (applies to non-numeri c results) [facility] Bilirubin,Total 0.2-1.3 Normal (applies to non-numeric results) [facility] Bilirubin,Direct 0.0-0.3 Normal (applies to non-numeric results) [facility] SGOT(AST) 11 U/L 17-59 Below low normal [facility] SGPT(ALT) 17 U/L 21-72 Below low normal [facility] Alkaline Phosphatase 89 U/L 38-126 Normal (applies to non-num jean-claude results) [facility] can increase Alkaline Phosp le vels up to 2 times the normal adult value. Normal values for children and adolescents are 2 to 3 times the normal adult value. CPK 95 U/L 39-308 Normal (applies to non-numeric resul ts) [facility] Total Protein 6.3-8.2 Normal (applies to non-numeric re sults) [facility] Albumin 3.5-5.0 Normal (applies to non-numeric resul ts) [facility] Thyroid Stimulate Hormone TSH 0.358-3.740 No rmal (applies to non-numeric results) [facility] ID Date Data Source [id number] 07/26/2019 11:45:00 AM EST [facility] Name Value Range Interpretation Code Description Data Hedy rce(s) Supporting Document(s) Magnesium 1.80-2.40 Below low normal [facility] ID Date Data Source [id number] 07/26/2019 11:45:00 AM EST [facility] Name Value Range Interpretation Code Description Data Hedy rce(s) Supporting Document(s) C-Reactive Protein,Wide Range <3.00 Above high normal [facility] ID Date Data Source [id number] 07/26/2019 11:12:00 AM EST [facility] Name Value Range Interpretation Code Description Data Hedy rce(s) Supporting Document(s) White Blood Count 4.8-10.8 Normal (applies to non-numeri c results) [facility] Red Blood Count 4.35-6.08 Normal (applies to non-numeric results) [facility] Hemoglobin 13.0-17.5 Normal (applies to non-numeric resul ts) [facility] Hematocrit 37.7-51.0 Normal (applies to non-numeric resul ts) [facility] Mean Corpuscular Volume 80-94 Normal (applies to non- numeric results) [facility] Mean Corpuscular Hemoglobin 27.0-33.0 Normal (appli es to non-numeric results) [facility] Mean Corpuscular HGB Conc 32.0-36.0 Normal (applies to no n-numeric results) [facility] Red Cell Distribution Width 11.5-14.5 Normal (appli es to non-numeric results) [facility] Platelet Count 310 X10 3/uL 130-450 Normal (applies to non-numeric results) [facility] Mean Platelet Volume 9.6-13.1 Below low normal [facility] Imm Grans% (AUTO) 0 % 0-2 Normal (applies to non-numeri c results) [facility] Neutrophils % (AUTO) 40 % 40-75 Normal (applies to non-num jean-claude results) [facility] Lymphocytes % (AUTO) 48 % 21-46 Above high normal C [facility] Monocytes % (AUTO) 8 % 5-12 Normal (applies to non-numer ic results) [facility] Eosinophils % (AUTO) 3 % 1-5 Normal (applies to non-num jean-claude results) [facility] Basophils % (AUTO) 1 % 0-1 Normal (applies to non-numer ic results) [facility] Imm Grans# (AUTO) 0.00-0.50 Normal (applies to non-numeri c results) [facility] Neutrophils # (AUTO) 1.5-8.1 Normal (applies to non-num jean-claude results) [facility] Lymphocytes # (AUTO) 1.0-3.1 Above high normal C [facility] Monocytes # (AUTO) 0.2-1.3 Normal (applies to non-numer ic results) [facility] Eosinophils# (AUTO) 0.0-0.5 Normal (applies to non-nume aline results) [facility] Basophils # (AUTO) 0.00-0.10 Normal (applies to non-numer ic results) [facility] ID Date Data Source [id number] 07/26/2019 08:10:00 AM EST [facility] Name Value Range Interpretation Code Description Data Hedy rce(s) Supporting Document(s) Discharge Summary [facility] PHYQZb5dUqPXXoAx85/TIRpwBOMnx3TmRUtyIAo4SDowLPWiT9MfIEW4dB4vMQM4TLqXXpGbKoBsIhJs lbm [file] ICAgICAgICAgICAgICAgICAgICAgICAgICAgICAgIC AgICAgICAgICAgICAgICAgICAgICAgICAgICAgICAgICAgICAgDQogICAgICAgICAgICAgICAgICAgIC AgICAgICAgICAgICAgICAgICAgICAgICAgICAgICAgICAgICAgICAgICAgICAgICAgICAgICAgICAgIC AgICAgICAgICAgICAgICAgICAgDQogICAgICAgICAg ICAgICAgICAgICAgICAgICAgICAgICAgICAgICAgICAgICAgICAgICAgICAgICAgICAgICAgICAgICAg ICAgICAgICAgICAgICAgICAgICAgICAgICAgICAgDQogICAgICAgICAgICAgICAgICAgICAgICAgICAg ICAgICAgICAgICAgICAgICAgICAgICAgICAgICAgIC AgICAgICAgICAgICAgICAgICAgICAgICAgICAgICAgICAgICAgICAgDQogICAgICAgICAgICAgICAgIC AgICAgICAgICAgICAgICAgICAgICAgICAgICAgICAgICAgICAgICAgICAgICAgICAgICAgICAgICAgIC AgICAgICAgICAgICAgICAgICAgICAgDQogICAgICAg ICAgICAgICAgICAgICAgICAgICAgICAgICAgICAgICAgICAgICAgICAgICAgICAgICAgICAgICAgICAg ICAgICAgICAgICAgICAgICAgICAgICAgICAgICAgICAgDQogICAgICAgICAgICAgICAgICAgICAgICAg ICAgICAgICAgICAgICAgICAgICAgICAgICAgICAgIC AgICAgICAgICAgICAgICAgICAgICAgICAgICAgICAgICAgICAgICAgICAgDQogICAgICAgICAgICAgIC AgICAgICAgICAgICAgICAgICAgICAgICAgICAgICAgICAgICAgICAgICAgICAgICAgICAgICAgICAgIC AgICAgICAgICAgICAgICAgICAgICAgICAgDQogICAg ICAgICAgICAgICAgICAgICAgICAgICAgICAgICAgICAgICAgICAgICAgICAgICAgICAgICAgICAgICAg ICAgICAgICAgICAgICAgICAgICAgICAgICAgICAgICAgICAgDQogICAgICAgICAgICAgICAgICAgICAg ICAgICAgICAgICAgICAgICAgICAgICAgICAgICAgIC RdCRJwAAFvAKRcHCArCAUmRJIiIEToFRBoPTHvUIVfQGKwHCOtUMGlOFInPFAoSVw2U4soWCVyZOMtZJ 2tPUo4Oq4+TAoEDoEqNDK9qyJhuR6WSE8xk2RsOOlyKDQyg8UxIFf9QO6NPMNvWPtlNI2BQEjpdu8SGG NlIYNubBVBq8mmDsThVRU5HOUaLmaqCL0VCSHtX5yp afZqOQXlGSSZRUfhICEYYLngAHPAHTChCSIiDrDuCoJqWKXvZZRsSDLPGGV7QVAgQoSdTYGwGITkQgAq OSDSTOIrCCCvRbQbHJwsJE2Qr3RegZKoXG0RLg6GGyEwOI2oez4QLMAcGKLhLdjSEkg3QXneAF5AaVBf qWV7AlCwNMIMBlLtK6ige0QqUXvlNHUBDZbxQM4Yv3 VudCAxDQo+Hv9XTO6tt7EvYNc6AaWtWX9uow3CLNtFWpXnC1IfwVsqBSBts0LkAXAzPLQJjT0rQXL9VH O2ZXHwKNrsXKWjSpHfcLAuLI5ENQO1TVMrVm1dNSDrXIC3YzX1ZRZBWV0PWIEdNMTppUBsDNMoNLEMGJ 1IKNnaAII9JNYudcAusHDhYHmkGF7XFLToimVnOOMc MCBSDQo+Un3SFO6xc5BmGKn9VACtTW6veu5AENmCOySzW3L4hUKbZ0Q3QVsiAp1OWGJlULPkOSNiFQEM EAbzKD1LBE1dspA2FZ2YiGRkGUUaIIHluFNpGMq7P48zaRAfLWeoZZ4NOMG+Lambert+Lb0UTYUdWMItOYJn BxRcBOSZKzUtX8KcG3JCd2VkX4RiMH06qFhyfxLgLY kiOF9UIW8kUCAaUNBVVY0KqNTyrA0ycaU2TxJsTNAHZaRnA17drQWmHZSzOEZ8ZQYsJm5NMSJaH1Nled YfqOhwtqKuNNOgZGETOJ5GMVexjgYqhDTyyUnmQJ19yRffUX1YFc6INuLlQF8hwc6MjKZfIl1XPPB7FZ 7MQUOyPSWjERNhATF0VBTrNyCzMTtvXWSwMTYkXCE3 IQPfXQQrHL4SVsIoGPHiDpL0IKTaPQDjPAIohu6QUTFbBWO4WQaoGTPpTOJvQXInOUswRDTwQGCbIGO7 VHFmZLWbQN6AGrJsRNKgEXExSjGyVTXgZFLxte2GRUAaRYVqYEQ6ApWsFUNzOPYwXDomZRJoCKF3SpU4 YKMyIIVhOT0IBtKpSSLrCZt9TGtkIWBvDUHgct5BHJ EtJRTvPgO4CuVhDXPuFDRqBBhqOTLxREJaQHBsDPYiWGJnPP4QPcNlJFZcFSaoFRErYYHjMCQxnv1UME UtTCVpPjF4GWVyEIWkFTXvBFklWPGtBOFoAiE1TRCoPWEmMG6RVhWjNSRnZdE0TxSsQBVaOPJttp8TPN QeUFCqPwN9EMSrIJYzQNJbFRgfVKWmWTElZQS7UEGn TWXcHG0TZtKlRWLmXkA8XjSaCIXnIQAspw2PXIKyMRRtZoi0DdOoGISpRYBxBOidURGyJSYjEdTzXAKc WTIpLN6QMfIfHZNfDzL9NxTpILMrLIEeho7EBPTsHWGqURceHCTaCNGgRDQhAGmsPBSpGMI8BLN1BKCk JFLaVF3OXjMnKCDuZqy5AECgCJTdEYHkgu1SMBFhEB TaLcw9SOIsPNLjZVHiGDomPYUkWWS3JVT5CAXsNPMjTG9LUhGqIUBkIqrtNVAnJSLpRKBkag8YBJGpEL IwFNV4WMKtBKKdWQAnQCtoZGUwHWVaDnC9KGCzVRBcJW4GYaJwTJAvKAT4RuPgRWZeUHPrge3IHITiAO G9NFG9ILDiWJVvFAPtJVlyVWImIZKfTfF3TJZaOJTw SX4QPfQdCRZuIJX0JAWdFGYsRRRnvo7CBETaUCF5EQl3YBZqCZLrEDYbIUyvTHBxTMflHDS8SRZzKRRn EY8JLeXaRDWfMsReRmcjKDEoPZLyfk8XGFIdXCL4WlD2FTUnHTJfWANoYJinLTUtECt6ZMR1RENnCRYw WR3VGkPvHNQeKiHyYWAaSCUsJKDfvc2JZHCxQKK0PJ K3AAItGIFqMJZgPGerZBCyGLy4CMSaCZEzZXWeNC3SDpAcVUNxNrC1UQPtPXYmGQYkvf1NNNTvKON2Ro E1WRHiLGSpDYQpEKwxGIZcNWv3KfA9BBChXKEzGB5ZMsWcFINoKfI2LgEiQOQvCEZdnq3IQLZhKPP7St D9NFErUNGgYQVzGSxyUCEsPIc5JBx9PUUoJCYaAO6W SkYkVVRyQlg1ONMtZHJeUNIstn9WXEJeHOG4ZMTpVLWjXTCeESCiJNw7vgHhsFXyHNh2GB0HZ0ZzfiNp QCnKGd9Pz058TXE1BVIzRq6FT5anSg9zVPUbRDCQRx7ZHFa7UbLePWMvFXWvRDt7WkAiPpJmZCMmUXPm Ahg5BoB3XhD+MAejRPW9QBZ1ImM0YZKvCRClKxZzIx ZnEvHuBSXkZVG4NI9fGJKXOf9+GIpfyOQncXfeOVNPEzb8GyC6MNmtWEVFIm7Q ID Date Data Source [id number] 07/25/2019 03:13:00 PM EST [facility] Name Value Range Interpretation Code Description Data Hedy rce(s) Supporting Document(s) Opiate Screen,Urine Negative Normal (applies to non-nume aline results) [facility] Amphetamine Screen,Urine Negative Normal (applies to non -numeric results) [facility] Benzodiazepines Scrn,Ur result Negative N ormal (applies to non-numeric results) [facility] Cocaine Screen,Urine Negative Normal (applies to non-num jean-claude results) [facility] Methadone Screen,Urine Negative Normal (applies to non-n umeric results) [facility] Cannabinoid Screen, Ur Negative Normal (applies to non-n umeric results) [facility] Therapeutic Drug Ranges for Emergency an d [...] treatment purposes only. ID Date Data Source [id number] 07/25/2019 02:55:00 PM [facility] Name Value Range Interpretation Code Description Data Hedy rce(s) Supporting Document(s) Color,Urine Yellow [facility] Clarity,Urine Clear [facility] Specific [place],Urine 1.001-1.030 Normal (applies to non- numeric results) [facility] PH,Urine 5.0-8.0 Normal (applies to non-numeric resul ts) [facility] Protein,Urine Negative [facility] Glucose,Urine (UA) Negative Normal (applies to non-numer ic results) [facility] Ketones,Urine Negative [facility] Blood,Urine Negative Normal (applies to non-numeric resu lts) [facility] Bilirubin,Urine Negative Normal (applies to non-numeric results) [facility] Urobilinogen,Urine Norm 0.2-1 Normal (applies to non-numer ic results) [facility] Leukocyte Esterase,Urine Negative Normal (applies to non -numeric results) [facility] Nitrite,Urine Negative Normal (applies to non-numeric re sults) [facility] ID Date Data Source [id number] 07/25/2019 02:55:00 PM [facility] Name Value Range Interpretation Code Description Data Hedy rce(s) Supporting Document(s) WBC,URINE 0-2 Normal (applies to non-numeric resul ts) [facility] RBC,Urine 0-2 Normal (applies to non-numeric resul ts) [facility] Hyaline Casts,Ur None Seen Normal (applies to non-numeric results) [facility] Bacteria,Urine None Seen Normal (applies to non-numeric r esults) [facility] Epithelial Cell,Ur None-Few Normal (applies to non-numer ic results) [facility] Crystals, Urine None Seen [facility] ID Date Data Source [id number] 07/25/2019 06:28:25 AM [facility] Name Value Range Interpretation Code Description Data Hedy rce(s) Supporting Document(s) Glucose [Mass/volume] in Capillary blood by Glucometer 105 mg/dL 70- 140 [facility] ID Date Data Source [id number] 07/24/2019 08:35:24 PM [facility] Name Value Range Interpretation Code Description Data Hedy rce(s) Supporting Document(s) Consultation [facility] TANRTf9nTcVLUrGw34/PJMrpQBNjc0QuFFscATp0FQbwOIXyK6TvNKX1vM8pJAB3OZjYBgGvZrClGaGk lbm [file] DIRECT CARE WORKER/FC75J6tkZc770Ybz+r+hrLZ16RdH9w+jvM+njvt 4tmPJOKram+4uAtP+/CKPRk3F1ibNekv/OyuisTDuLYNm3+pmF7BoCJ/EqrytjH3LRnXBZKiYeJBwfrK VajKDkQVl0PqchoCdGWlPjozIXE9UZL+t2Z8OJTMnbQTNBLYbxl33YDyla5m7dBOhzeemq+l5zPdV8OE 5//Lxx7Ew0mnAqXCg+sjgYhaLwheEJlomRZcEFxiut R7yo7102hp/rehet1mBfnVRi8tM0S1iws5v07jkMt6lCYxNXdMJhvH4OhSMw/AH/K+oElUpLK9uI7Ljf bXBGRh5PYRCaTDR12oLBgi8BaJXnqAqdJPUSBQneu3cneicilLcFqKBbluUhnQF98dCwT+Wfjx/V/hR/ kexb2n9HFmkcGvNH7/eSuGg1LIwpUVobm4Zxh7nv2f TE/dFAzmEJiizNDwzBvjKSr6Haa3fL5ZRYCgOpdsLdsr4zP/7r537vSZkyjmrCAZtYOinSVxiyjBih0f GxBUuvKDZXSWZ3SWMA+RO/a/ub4m34msrFu0uxQtoAhd0Sst7V/oU5aoT6o/E8m+da5cw4qs6hhpk0Os vrJV7505jigotuyZsAU52080c605tuo4lt3c5G5Qw8 [file] itFXRnRV4tCEKTFq2+GBmlbFPxuBqmSKHCIau4KLE2DPgoPOTCJb2T ID Date Data Source [id number] 07/25/2019 02:02:39 AM [facility] Name Value Range Interpretation Code Description Data Hedy rce(s) Supporting Document(s) Glucose [Mass/volume] in Capillary blood by Glucometer 107 mg/dL 70- 140 [facility] ID Date Data Source [id number] 07/20/2019 06:54:22 AM [facility] Value Range Interpretation Code Description Data Hedy rce(s) Supporting Document(s) Cholesterol [Mass/volume] in Serum or Plasma 191 mg/dL <200 [facility] Triglyceride [Mass/volume] in Serum or Plasma 172 mg/dL <150 [facility] Cholesterol in HDL [Mass/volume] in Serum or Plasma 38 mg/dL >40 L [facility] Cholesterol in LDL [Mass/volume] in Serum or Plasma by calcu lation 119 mg/dL <100 [facility] Cholesterol in VLDL [Mass/volume] in Serum or Plasma by calc ulation 34 mg/dl 16-42 [facility] Cholesterol non HDL [Mass/volume] in Serum or Plasma 153 mg/dL <130 [facility] ID Date Data Source [id number] 07/20/2019 06:48:22 AM [facility] Value Range Interpretation Code Description Data Hedy rce(s) Supporting Document(s) Hemoglobin A1c/Hemoglobin.total in Blood by HPLC 6.4 % 4.0-6.0 H [facility] (NOTE)<5.7% Average risk of diabetes (ADA)5.7-6.4% Increased risk of diabetes(ADA)>/= 6.5% Diagnostic for diabetes(ADA) Glucose mean value [Mass/volume] in Blood Estimated fr om glycated hemoglobin 137 mg/dL <126 [facility] ID Date Data Source [id number] 07/19/2019 10:16:05 PM [facility] Value Range Interpretation Code Description Data Hedy rce(s) Supporting Document(s) History and Physical [facility] UVDUQr5sQyGIDuJn60/EAUjgFQEem2VqACyuHUw5JGrcULWqS1PtUDC5hZ9zXRE9PDeHFnLhAhFiTfN0 lbm [file] supervisor cold rolling+kYIWf0/DrAzemiOGPSEdHklpN7ZwKERR6WRv7P [file] AgICAgICAgICAgICAgICAgICAgICAgICAgICAgICAg ICAgICAgICAgICAgICAgICAgICAgICAgICAgICAgICAgICAgICAgICAgICAgICAgICAgICAgICAgICAg DQogICAgICAgICAgICAgICAgICAgICAgICAgICAgICAgICAgICAgICAgICAgICAgICAgICAgICAgICAg ICAgICAgICAgICAgICAgICAgICAgICAgICAgICAgIC AgICAgICAgICAgDQogICAgICAgICAgICAgICAgICAgICAgICAgICAgICAgICAgICAgICAgICAgICAgIC AgICAgICAgICAgICAgICAgICAgICAgICAgICAgICAgICAgICAgICAgICAgICAgICAgICAgDQogICAgIC AgICAgICAgICAgICAgICAgICAgICAgICAgICAgICAg ICAgICAgICAgICAgICAgICAgICAgICAgICAgICAgICAgICAgICAgICAgICAgICAgICAgICAgICAgICAg ICAgDQogICAgICAgICAgICAgICAgICAgICAgICAgICAgICAgICAgICAgICAgICAgICAgICAgICAgICAg ICAgICAgICAgICAgICAgICAgICAgICAgICAgICAgIC AgICAgICAgICAgICAgDQogICAgICAgICAgICAgICAgICAgICAgICAgICAgICAgICAgICAgICAgICAgIC AgICAgICAgICAgICAgICAgICAgICAgICAgICAgICAgICAgICAgICAgICAgICAgICAgICAgICAgDQogIC AgICAgICAgICAgICAgICAgICAgICAgICAgICAgICAg ICAgICAgICAgICAgICAgICAgICAgICAgICAgICAgICAgICAgICAgICAgICAgICAgICAgICAgICAgICAg ICAgICAgDQogICAgICAgICAgICAgICAgICAgICAgICAgICAgICAgICAgICAgICAgICAgICAgICAgICAg ICAgICAgICAgICAgICAgICAgICAgICAgICAgICAgIC AgICAgICAgICAgICAgICAgDQogICAgICAgICAgICAgICAgICAgICAgICAgICAgICAgICAgICAgICAgIC AgICAgICAgICAgICAgICAgICAgICAgICAgICAgICAgICAgICAgICAgICAgICAgICAgICAgICAgICAgDQ ogICAgICAgICAgICAgICAgICAgICAgICAgICAgICAg ICAgICAgICAgICAgICAgICAgICAgICAgICAgICAgICAgICAgICAgICAgICAgICAgICAgICAgICAgICAg LTOvWXToTFOrKEe5F4qbTFImIHLeEO0aOAv5Bv0+YIbHZgIyOZB5nrRilG5TXV7qq3KhATtqEVSoq0Xj AMg8ET1JJORrDLlkKO6UJOmwfz1QDIWhGXKevUDDi1 zpSqChGTK3RZUlRizaSH8QYVLkV7qmpgMwVEXbBPXTZEymTBVTKYcgGJIQWEAvZLTjEwTvWfHnRXHtCG WwXMVXRVG4WIHhHnVgFSFqCCTfNvZxQVHLQOWiYYLrLdTpQYOaUBBxYC8XFOTtB177ulKqHSXJBv8+DQ fopcVwIzbXVxBiZSWxj0HgKHh8PD0SOFYdWctzz8Xe VoYoFYFZSSnaUM9ZDMT6ARCdDUQuAe7IUZMrI806xuNgVN7VOu3SChBmSF8ecg7PIhFoKNSzPyvDDca9 QAvsJH7WgPNvTKqGImOnKertKGYwxwEUfGWyJXPrTW1DNFS3SFZvIoMdFvHaDXIaOgqlAqCGGKkEJtBy W6Sen1SfFbU0YKAuGqWiVDynLUXpFtP8DH98sBueAD 6WXORzZOUiDX11SOViXDPuCh7JOd9TCzNdYK5wwf7PTzPsJNBrOtsITyc5IFakCA8OgNYuH2VfqQWgo7 dNTlIbO1QJSZB7JKFoJp5AZSCgTyTfWBEkRYqpES2xBORzZETOiYfjvoR9FE8IHH6qxmFdCB5QAuAwXe 0aEi5FVfNvO1JnJ3PiGXCbXEJPLXfcUH4VCQvgSN4y MZ5Jz7ORoPAkaN5bla3ZAQXmXKTaTyxico4GNzlcV6B9gNreGERqUlOgZYAPAGhmHO4OINMbOPK8XLP7 DAQaCXJIZnDnE07pZT9VE3Idp19kQcX9QCDbTpVxDCwyJA68lVsojuMnyYNfzHcoYF8PAc1+DQplbmRv OxxLEhepAWVVMfAvUfERLzUhBFQsZMLzHEXvAmY0Mb ApZq7EWNHrXFQyYZWlGmOpFZLrUSEpROcjSGDaUEpzOnX8QQEwDXYaJN7AVpBcWZEkTXVoLQLiZCBgDG Lycu4SFISdXCVfOGR2LbChIMDvBOMzNYogWOKuODD4XgC9FZUsNIAtJO8HUkJoZCSzITN4VJvoIQDaKO Pwjl0SCXLjGGKdMRC1SKRoEQOgCTYgIDmiLPTkFRD4 KqZ2YWAcMPMdCH4XWsJiWFXhVDK4QtzjQTAsOZTfwk0ARZUmKRXdIsE7XaWuJQPgZHHaKGfiHVAoCDZ8 JOKjYEFrTMOdZJ8XAlXuFBQeHYkuNSCvFRDbHHLbch7AIPWvUWImBSF6QVWbGYIbAENnZAitEISiUVVd UpO5WGJsAKPoPH4SIpCtUEBzIpZnKXSsURUuHATptu 0ZVOWcJEYyYRQ9DOLgMLSsJVAfBBboVGXnSFY9ABW0MQIcSIVaYS7IBzXoGZDvOvynYHClSZJcVOZtqs 3DSOKxPAQaRvkmNURnNHXsIISuTRayAQBqKNCjUSDcOFAjKEFwNJ4ZCqYvJOZjPou0IJUgCCUzRSChdi 1HYXIdNQLpRVb9FhRwCBUiXPHrVEadLFMcDBMzCQT3 ZLJqNOCcNX3PVpDvDCXjIFR2CZDyIMPgBBKaqe9UFQCtYVM7AdLwMzNpCXFwWWKdETsvJBSrSFGjLcGx YQWfCMYoDS6XXxDvMLBfEQS0ZIAsFAWwSUErhg1WKEHwAWY7ARh3OEPqWCHtWFUjLMenXCVkPGD0LCic NUUcASPjRR3QVtUwCCIqPXG0TpJjQCAmPHSvba4DOK DeNKN9MjOzSsEiVVSmTHLgACiiIWYeYVL2EtHfRMNoHYAhQY7GFzFhHOVyJDfmYTIaLDXvGZIthc0GPO PcFQG2ScR5YJXvQJEbZDHsKIikPJFlBTW2KpNlOLKeUNFhMQ2YNbYjKQToYKncYROaGKLcXTGfnz8WWW ChJAF9CRJhOdEjSWWgVLUnVFxeFBEsNTI8OkY3MQVp LZLkNQ6EMoRyGWSnLZy0AMUaQVAlKHAyez3PJGUhRPQ2CIFhEIDwAVArEUHbGTxaGVAgTEHxNShrMDXn UDMnCP0LEhPjRRAcCnBfSvQkKXBoKZYdnf3DEXZgZGF0DWRgCYYbEKTsBZMvMUosZUOyWTXnVtdpFJJi HSReGC7OYaIaSIIxReJ4QqKmPENkMIOruj1UZQBeBE N1ZzZ5BRNsMGYoZKHzXLnySXMbJOC8LIZ5XNOjIBWxOI8XHxHnRLEiDnf9NfLxGBEpKSWnzs8DSIPeIV E0TJW2UzJaIPGrJBDbILmaQWFxXYA1Ygi7LUMiONFaNC7NZiKhDKPuHwk7TUGxMSTvHEMpei9SSWNkCA U8YOR6XlZlBPEmSNScSDaaDHTeGEB2YTVkLJMwBETs XD6CWrLnNMYtYsufJNepIPVaDYSymr0DZXDeJMJ7LSN9YJAuJUReWIHtHAazGBVqOAphDqYiSWMqEKCp JM3NSlKaTQCqIOB5RIRnQXFgUYAqfy8XYUBeQFQ4SxZ9GzAkABKsUNRyIVohEGWwRFohLlA6SLXjDLTh AS0LUgVaAXJzBYY0XUItATUdUITluo9KHSSxXCR8UZ JoZSCtMGHkSVFtWPnoEWXoZZd7EguzYYDmTFXeVR7FAmQhOGXsLMQ7XFmnQKEbXJYgab4YvZJfhZequd 0NBOzZPt1KaJsqGEC6FUbyDr9nhHC6ZjEtDEFJAf7AvxIoAXTmLBIEXWioXGDwFZJ5HuYuQcRcVaO4GO LcWWDnXXU9Z2AqPOW9YtDyMoXpGfB6AlT4VZDfLZL5 SSW9G4WdGXG9FZw3SDPyZiM6SBWpHjW+IF9xIKx+On3Li5DvkzK1xqNmGTf7RQV0VX1PWUBHZ2GUYd== ID Date Data Source [id number] 07/19/2019 09:34:15 PM EST [facility] Name Value Range Interpretation Code Description Data Hedy rce(s) Supporting Document(s) ED Provider Note [facility] SJGBFy3oZhIZSwVj14/ANIftNQQmb8CiLEpkOIm9KEpfUHTvH2HvWYB6xQ7hLAU4NHjUEpXvGgLjDlT8 lbm [file] ICAgICAgICAgICAgICAgICAgICAgICAgICAgICAgICAgICAgICAgICAgICAgICAgICAgICAgICAgICAg ICAgICAgICAgICAgDQogICAgICAgICAgICAgICAgIC AgICAgICAgICAgICAgICAgICAgICAgICAgICAgICAgICAgICAgICAgICAgICAgICAgICAgICAgICAgIC AgICAgICAgICAgICAgICAgICAgICAgDQogICAgICAgICAgICAgICAgICAgICAgICAgICAgICAgICAgIC AgICAgICAgICAgICAgICAgICAgICAgICAgICAgICAg ICAgICAgICAgICAgICAgICAgICAgICAgICAgICAgICAgDQogICAgICAgICAgICAgICAgICAgICAgICAg ICAgICAgICAgICAgICAgICAgICAgICAgICAgICAgICAgICAgICAgICAgICAgICAgICAgICAgICAgICAg ICAgICAgICAgICAgICAgDQogICAgICAgICAgICAgIC AgICAgICAgICAgICAgICAgICAgICAgICAgICAgICAgICAgICAgICAgICAgICAgICAgICAgICAgICAgIC AgICAgICAgICAgICAgICAgICAgICAgICAgDQogICAgICAgICAgICAgICAgICAgICAgICAgICAgICAgIC AgICAgICAgICAgICAgICAgICAgICAgICAgICAgICAg ICAgICAgICAgICAgICAgICAgICAgICAgICAgICAgICAgICAgDQogICAgICAgICAgICAgICAgICAgICAg ICAgICAgICAgICAgICAgICAgICAgICAgICAgICAgICAgICAgICAgICAgICAgICAgICAgICAgICAgICAg ICAgICAgICAgICAgICAgICAgDQogICAgICAgICAgIC AgICAgICAgICAgICAgICAgICAgICAgICAgICAgICAgICAgICAgICAgICAgICAgICAgICAgICAgICAgIC AgICAgICAgICAgICAgICAgICAgICAgICAgICAgDQogICAgICAgICAgICAgICAgICAgICAgICAgICAgIC AgICAgICAgICAgICAgICAgICAgICAgICAgICAgICAg ICAgICAgICAgICAgICAgICAgICAgICAgICAgICAgICAgICAgICAgDQogICAgICAgICAgICAgICAgICAg ICAgICAgICAgICAgICAgICAgICAgICAgICAgICAgICAgICAgICAgICAgICAgICAgICAgICAgICAgICAg EUMlUFFzHZOqDZVnRKTdRRAhIQLgDBa1V4cqWGHzUM ZyTR4dPGu5Pw0+KYaGBmCsTZX8tsNvmY1PBH7bz4OcXKqsYOTke6VpRUy6SI3AYGQiKAwaHG6VSRbrhq 8HFFIrWNVakQVZw4smMvQrQTC2ILJeYrziEI8DWEUuN2nlchTbRDUuIIAOCKnwSPRLBKqdWAUJFOKtDZ LqGnWcPyPwUDJlISKxBAMRCAE4TNOmVnXwMYqdPX1R c0CxiAI1MHp+Jh2SYP2cm5MlXBuvNzGyBJ7hpx0BLBqIIsMqK3FcvlQ2UFB9UXPuWp7BIMJiICRrsCB9 LuOgWRUCHpWpD1FmuV34WTGIUc7+MKttjuHzDnuDIfU7GKJev5XnVTl7TR7OWCMmQTu1hTXsSLEwTFMq birtXOTnTy56GJRuKxemEoohbIwfD3rffNxuBWDAMY X1NQExIwIaErOrVHNkRejpMoVXCJbVTzXqF2Non5YeNnA8EENrWeRuOSzeOPPdCiXsWD40tBwqRD8KQJ PuYJOlYY27TPG1HURqHw4XPXTrEhR2rKYhNOLjRSERGa6+AZtogeWyBwnTLbT5HTDaz3NfMCq7EU0TJQ CiVFf2fLSfMTJhKHHddzpkWKQxFq22TPFuDezeJeah ePjxO0gnwBkwZJOLCTB5UXAuUjPhXmQlPZMjAsqxToSRBEvDTmZbL2Wpm4UqOnP7DXPdTkKdJDeiGGEr QYCmcnSbvVXhIFljZQ6ANPEizgWrYeqjPZNSULruQC6XpiC7HTO6EBCbYp0HAXAbEkK8eXC6OPStTJGU Cj4+UUxrvaEbIkqPNaIgFREak7ViDWi3AX4XIOHvCL k9kPHuKDEaKIPskohnLMToJe26HLRwBtqbWwQaYPNgTUHUCKQjwn10FDSEINGfoUDzBoPiTxXmCoUkQB C9LsHmFA2iKKglDW9JFZM4BIhrHjBlKALfN5qYIxEtUBE4CWZndPkvOC0JHfRpN3HaupYlzVPmCqKbBZ OTCoPjW6CkRVOsGbyyUSRPMYcjYX4WSIg0EECyPADt Hf0RNz8QUkGpGS8opq9ELLCjDIPzBtxFAgl0DHkrFC3SgQFpJNyRUZYZn7LdemNaoHHQIIpkYK3oKWCF VEExJXFgNJECFaJgaKIaJaKyMqHnSfAeVAw3TvUvRQ6iLLdkGH3JNRH4EPilKCQyFFRNED0GZCncSFNy QBoxskWooHXaMNwhYF8TMCQhciGvXzlxRFMXBXjxHG 0EauV1CSFsMJKvBc9QHFTmHdK9pTS4HzZzFGILNu8+EGgowiAuBimZPeHmOMXog7VpJLp7ZD0RXVPbAX g8jHArRXPrWu55QQSbKykgPSJveu6nNNzsVKFsTKTBOCB2TZIoIpGdKfSsFGIoZra9HzVAVHmTDvMoO8 Pfm6TrYjFhKQFgVHDyU1tWApHyMWVpIySraUfbPA4E QgJuP9CjzpYbsUFtFwGlOAKEFvBsQ5GyZHOyEHXhZJMFNLusCR5WJIg4YGQsYADaIf6IJa0PFgSzUZ6t qd7BGOPhEHCjKmwRRay9UBvuIZ7BdFAgEDuBPUASp5GheeHlrSGSt0EsqMmlCaLyIS99BRqtZQTCPJR6 HCLnKbLwSuWnAHYxCNiuBMELFIkHIaFwI9Ahh8UzHr UkFATqNZIeN9jEQeYyMSc0DA66aEpzGJ3OZHUkJPIjIT69XJS2RKFfAi8MSMEgXXDerzU0WmKiZSLVFg 4+KMeduxDhRlqKWvS4XKEhg6RiSEh2XE9OBHJxJIlfPB1HHYKlvF2kMIoySP2GJbZkIMPrNJJXFsSxM3 8mgVMxEPr9P7UcRlPrGMHoWlmuCKQkLFvpKwQzLUTf WyBdDQogID4+ID4+RQjnOI5SWVsvmqMrUFCrBd5VIGHfLUOmAM6pJLUtKOEqC4L0cDekHNOZXnRvQ2to yhxtZO9cLAFhG988gZhcosIuDWS1ATOaMe0ILDLtGJZ7DIChpOZjVaRqRENBLBddHR1ZnFBvTZA6uR0q WAgxXNEmRJAeU9xLMxQfjZfzVR04zTzvvcLruMYuMI o+Xb3SNZ4ju9TlBOv7uoByBNrhQHA0GUunSXOtVWVkWXKkXZB1LVT8TPGAYhBxZDJiLQIxSRysLIUvZE Vzlm1NQJOxBFCtHlRfWsMgYAOfKGSyHTtzVWOvYRY6LtZzKUIwQMFdFQ5GVyViASIcCDYxXAwoRCUbNM Nkou9MBWJxVURmUuI5CEXhKINfHNSbAAjgPITkGJJu MemvDBPgJQJpVV0LJuOiTPKsJGUqAhzcLEUxWQEwfl3XQFSaYRKlBcHiFDOaHSHhJPLiWXwzKQKiJXQ1 PUL4IHEsVQJmZE7UCdDuTRPdURrlUJnbPCXqRSLskw9OGYKgUALmFHY9AaBsLHKmFHEsNGnwVJMuLKGv KtkbKRZyNNRzHX3MJkHhHGZgIRP9OjZbUEFjPMUdxn 5WSAGuHMZwHUVoWZReKUGyKHBxSVpzVBFmRVS3EqnoSDJaZPOkLQ0SYhCkRNDxFOl0LQsiLHLpWEWbzt 0TQJVoWNWrFOA6LRVpOKYbSWEmQOguCUAzGNM8SLdkWITlZPRbZL9XDmDmORLcTAx3WWQpKJQwBHVslk 0DKZMzDIWaAWF5UIZaKDIwPJMxRNctQUZuSLXeSqUf IHQjTVHdBP6GNlDrITDsHcJzMXMpIFDhSCAzgx1PPPDgSTQoSQB2WmUtMHNxQMPxGSntFDZgQTNyFCjz CGEoQKSqQG0IKsYfFLZiTvU4CGUcWMIpRORjux4PAGWxVNIpTeuwZbWjIURqMSYuRVewDIGzXYJsCASs OQMxDCYmGM4QPuXePGPaTzXhRXWdIMJhEBBkvq7XCU AqHPItWVG8VCPyZCFiWTUcKTckGXIrJSV1JGq7OVKiKLUvDI6UJlFhTRRtPeTrHrHlBXYbFPHafd4ENP ZyJGFkCYR8XJPwWCQdNSMdFJxyYKHxFFE7NrO5BTRnLBRcTJ5BDwIlPHOsGsX2VOPtBCXbAIIqbj0IAJ UyTRXiClQ6BRWgPATgQMRwHJjzSJSwIKH2IGHnVGUc MFWmDF3RQfTdMAYbZcx9QRKwSCUaCRDjxs9ZNFYiESFhPTP4ZxOySGVpHVGcVUfcWFQsVSI3TlY9YLHl CIDiHE9ZKuRbRLBuYrp3AVmqNGAeRQPgqt7ZQUXwEISkMCPzDxTdFVEyGDSlVQnrWPNyUVL0CkoqKTAi OQIaUK3RQzWxJPIgIku8SXMfCGWuYUTqai6MGKEvTG UaBITiKiIoBQKuRNIlYOo2qcXozNBhQQw3XC7HF8WwbrYzMQZQAs7Sr299IJI0FWDeUt7OF4zoJa0hEG KuYFRZFv7RHAp7UZMkAbB8OUGrMSNbMYAtBwEqJcPuXdIoP1FcEjd4WDf+CFzxMyHwFqx7QQVkHZGvBS GwP8CeNUY0ICSkUVQwFySwTQ5lPESYAx5+MGdgjZIlfFomHRDWLtM8HWZ3PKhiNUUGBe8J ID Date Data Source [id number] 07/19/2019 09:42:17 AM EST [facility] Name Value Range Interpretation Code Description Data Hedy rce(s) Supporting Document(s) Progress Note [facility] NLCVGu9aZkSECqEd54/FDZojIYZwb5PnGIcbVMi5XBjsANLmL8ZlGPC5lV3yUSN2YTpJYgYoQhJeKpJ5 lbm [file] ZjI+ML9cMIe+Kj1Fn7JvimJ4ryBxXZl1SjoyKEcuZRUQGx2K ID Date Data Source [id number] 07/18/2019 08:28:15 PM [facility] Name Value Range Interpretation Code Description Data Hedy rce(s) Supporting Document(s) Consultation [facility] BRKUTc2kRmPENrTm89/FWIzsYSJnk4KbGScgWUh2WLttCPTnE1MuTFR6aZ9cSWX2EOkEXyCjXbJqHsU8 lbm [file] nuf++oKhRWSjlHv2jV7uvr+dXnl//SN6sx7em6tdS4jF66+bW7f3l+breakdown man/uwl28ktz5uf4a+n555f9+c [file] AyMDUyMiAwMDAwMCBuDQowMDAwMDIxNDgyIDAwMDAw YN2LDpKmVMSeHkV7SybzRMAwYPLyfd3LVFDnPMZyNGg7BpUbHKHhJRRbZGocWHRwBLZqCOYwDQVaDHDv NU3OLeGtFZKkNeRrLeRtTOAwBWQtpr6JERJdPROwCsBfBXCnHSRbISIxQGzhEKPdJTP2IXvxICQyZITd GV4VLtQrQNShKzWlViKdPKPwCOUvix1PURYrPCRrPL G6NQDhMQXfGBBqTPdcXEBiKGL5QHOwBTPiJJHkMB9ZBzOhUPWvXtN6QPskJWQeCLEsdv2ZNATkYCKgSC cyIBDxYDCeEPSuXDppIQSnYDV1CQZ4MYOzGRDgAU9DCqNmOCZtEaqyDrSgJXGfCPEiho4EUETtOAPjHa C9DeKdGSHlRVKjTLqoRDHhTLH6PvYtYPYvWALlDP3E RzEtAHYgMan1AHufMQQrGSKnlr1CVTPfNJCnMKI5EALpCELtDFMpFKqeGWGkZYP5GEL6BRRkSZYeFZ4E AhJmBQJwEhw6ABKkGDHkESKwet7CDRMvELR4TSM2TiHeQNNpGJLoMEgxJLMdEWCnXzt4DIVbZXHrCC6D NdDeTSWlSIS7NnRzJPLgDXLpfh5FZWLaCAJ6VZLmAD TaKTEeGUJlCPzjPNBvQSJbYpa1DDJkGZGaUQ4OHvEeXJItQSQ9BfIgNMDrQKYsrb6RVNWtSZW3CnUiWY XpNXDxMHTaRTz4ijWpwGAuAXl8PV3VG2PwauAaKPKCHy8Kl533INGiTEElDb6ST2bzTi6zKITuNWJAAr 3FEAy5H3Z4QFB5K0DnWZooKYEzXLTmDZI1EJC9PeP4 PjW9InQ+KMa8JHRiIzHjD3E2XFF7AKEeVbPjJyE3VjqjKSrgMHB2BX0iYHTVDx8+DQpzdGFydHhyZWYN RnLpUtE1WHohIGTSEc1P ID Date Data Source [id number] 07/22/2019 08:06:11 PM [facility] Name Value Range Interpretation Code Description Data Hedy rce(s) Supporting Document(s) 9-Hydroxyrisperidone [Mass/volume] in Serum or Plasma 30.0 ng/mL 20-[address] [place] [address] (NOTE)This test was developed and its pe rformance characteristicsdetermined by [facility]. It has not been cleared or approvedby the Food and Drug Administration.Performed At: [facility] [place] [address] [id number] Robles Ph:[id number] ID Date Data Source [id number] 07/18/2019 10:27:08 AM EST [facility] Name Value Range Interpretation Code Description Data Hedy rce(s) Supporting Document(s) ED Provider Note [facility] BZUBOv0xIdQHNdTm84/ULJwcPPItm2VlNAauEMf8UMebXDUgW0KeOXS0iI7gVZB4YXqEOaWcGwBrDgW3 lbm [file] EvSMnzOM4IUMO+aLmbert+Eh8GEATdMIKuNEGvBeOcUFFKIlPoK6FbJ8IRl2BbR1HxCC57fGauexOqGWtyDO 5OMX6kIKFkMADPTN8PkGAniE0fwjK5WLHsOOJEHsNd N31ihVOpKJUdVEInEAIdBg0TAXObG2AckdHboRgmlhCuERFiAEXWXQ5JHRepnkInuIElhPwpAQ09mEck JW5MPv1VIuDfZU2gmn8RvZJbSg0TEHW6FU7CKVCdAXLbHCUaTPQ3LXVdXyPkFLhxHSSdSPHbZOU5BJUu RGDsOD4UDsIlIWAwPEY0UwNhZURfGYWbwv0NVBRqTS E9RLDgDCKsRXSnBFUfHWzfDCUgAWWvPDC5NPThJTEhRS9SRbYwLXEjMZQ5MJPjKQHeGFJvjf6SXTJmRO CuWgK3GgShMALnENWzIOgqRVByVIV5KjH8VJYyOEKdVZ1RNzNvSQTtIEE5QaofNPJiYNDiwh7STZSeUY IvNFIqJyYvBKXiTRWjMSurIOKxESD0CYDvUKBqGYOq FE9FJpZqLFIjUKG7NEcuKEZqWXDtry5BWXHvFAWzBQh2JOJwPKUpVTYtQCqjIBXuNMG5NuI4QYHsMVPm YD9VAlUiTQYfKSK9PFYyVBZsPZXage6WWCBxZZCwYaFhKNObJARsGARuLMlxVPHbFFT8BkC7REHbDJZh DE2EMtZtGWIkDDruGQScNFJeKVTuip7PNXMoOWJtYT F0NLYuFDFsSAHbJJjaXPRuZWElGJX1ZZPlCTBwSY8JPlUvVWXxOkJpNGBgBJUaUBSost2QLSSnCQCoYG f8QsOhLJSxBISiIEtrWDWmPPT4ZDNnPBBsIEDuOS8BVfFaFFEkAhxfIREpZIErRPUgih2RXKScPEHjWd TkIPShRKRiFAVbVNdnVKLkLPD2ZyjoPCWdHRTvQN9U XxHnRPVeCcgwPWPmNUTtRCFivd7UQRJzIBJjXNG0ZbKdBQSmWVNrGHtrRUSnTUR3YnNuXLAzVOSfZY4W YhKmVXWgIlt4YBLuBVDmRECjfp3KNGGbTKSdMAc0CJIjMWIdOMYpCByiZODsOVVcLAtyAUMlNXFvPL1D TpYqMBIcGDL4VHWaBHKmYBQzvn2QXRHvZPO4ZGjpJw BvGVCkRKCvTYjwYARpZHNvNAZ4MPAwKUOqRD1KMzSuEYHnIBApVABzFNQhKLZzht2APRKhBRI2FsX9JO UjNSWdTASxEDzoKLFfORXmMmg8EOFbNPUmKJ0HBqIyQIFiEHR5YqFtRDLmXIWjdx1YPVBkQCW7Yls4RG XnOGNvIFBaWQdkGPEqDNU9DKa3BTCzOIZdXU7FYxMl FJOkRBY1NzYxQJByICWjde9EFOVuTKD9TXo7TeYdZINbJNSmLYyhZYRlRMC7ZNN9XESfRNCpRU7UFrTi MEDbDKCaSFQpLINiCEJlgu7ZEQBhIRS8HkW8FNIuPNTmVUMsFNbbCXSqKZV1EJIcTLRfULVsDY1VFrEc LTBhCFJ9GlYtUCTwMJDlfe1ZKBDbRMP9Mrb3AoZuMT FjGMGoTBa1bzYelOGvKQn7UZ3BL8GcooRlVFkWGl0Rg528FEK6SKHsTb3JR6qhIj6lSIBcWTRLNy1QAW y3MPCdXLYsHELkHtNoSDHwYYf8VPB6VMQrT4BoSyW3WrH+AWd2TwSbIvZoSiRwUQSzITRsCkYaTMEuXD QwCOL8HQAaXD4tCKOJXn2+VXppaQZcrTggRNMGFdH2JRWxLEgjXXGSMv7W ID Date Data Source [id number] 07/15/2019 06:53:52 PM [facility] Name Value Range Interpretation Code Description Data Hedy rce(s) Supporting Document(s) Progress Note [facility] RTMMZz7lUtAPGtOb77/QABjxVNXtr5PtMWcsYJq4PVpqAXDyE6BiGMH5vP1gIXS0EHpQRtMtVuRsNjXf lbm [file] O8Hzzvdn/pvS+DC49H/Y+fi2P4xgBj0jC2kdyg1ki4RSex8cv1LxeHlH/0q6+Concepción/sDDIt9lj1+Ilw8S [file] VPRg0K ID Date Data Source [id number] 07/15/2019 06:08:36 PM EST [facility] Name Value Range Interpretation Code Description Data Hedy rce(s) Supporting Document(s) Discharge Summary [facility] ZYRDYk7uWpDDNoSz09/FUCczJQSpl5PmFCngDUy5NJwvEUPeD2HnGCA4rO8pRUI7FNkYNhOnIyFtDvIo lbm [file] YgMCBSDQogICAgICAvRjEgMTkgMCBSDQogICAgICAv DvEeUaRbVDXWOIojVHRgYZJdVaJfLqPkTVFNOAzjOIFdBTDyPoDxMlqdCWIPAe4QYeYnGSUsMT0hooDq xUV8DJD+Vx2XTCRiIJ1DmQVHI8CccZEzUSzwW7YNPG9TEEI8JT2WkMPdQP4JzHSQM4JlsLBuNl7zWLZq q5KvHb1tX1QBQFXCQBRbAQokPFmaLXBtANc5E3E0IX SbD7TFZ810pJNqvRj6Rc9aF8FLLSpDShJkFNviFHvqNIZaGAp1P8N6CBIwC5GLL9ArIwDwgdIhF9Y+Pi LlGNOMDC8OEGPHILk2M0O1jPNfB0J4hHmNhNF0JF3TIL3OjYLsrQKyt66+TgVBSxIhPVXpE1VBRZSXVh TfSThqXElbSSXyMXy5U7S3XQZiB0KCZ9hwH8g7RN6+ UcTZNbVjXYAqIh3NAoXzQj9KPpYaEJ0ins5WVqAxNGUwAqdHPvs5D5pmtzr7kRZdQiY5W6K6GrY9iZRe OO8WJ6L6kNSqEHG6MLVjzJH+Rp9It5GdYSGoXWb9Z2yvKDXmSRQkTwWdhN04D++4hxbgqGX1E9d3KETI gHHjpVeJdoLzV8oSEVA4o7E3AKo/An8OGMG9pNu4sQ BcJXZzBDq4mH0fcEd9FvDyCY71AVLcOYrdeH0pRxa3J9Gjw1HuYj8jCb5fiFQqHe4QLcYfDNW2pgJsAk CHAyM8cGownqgbJEC4X4u9rXC9Yb26u6akkfTxa7KjYiH7HZjyWWOzAdKoegEvLQZ5qwEmeD6aziEiZw 4PBHQhCGmeejSfTyZJVk2SUwCyGD74XhfjbC2pqCB+ DQogICAgICAgICAgICAgICAgICAgICAgICAgICAgICAgICAgICAgICAgICAgICAgICAgICAgICAgICAg ICAgICAgICAgICAgICAgICAgICAgICAgICAgICAgICAgICAgICAgICAgDQogICAgICAgICAgICAgICAg ICAgICAgICAgICAgICAgICAgICAgICAgICAgICAgIC AgICAgICAgICAgICAgICAgICAgICAgICAgICAgICAgICAgICAgICAgICAgICAgICAgICAgDQogICAgIC AgICAgICAgICAgICAgICAgICAgICAgICAgICAgICAgICAgICAgICAgICAgICAgICAgICAgICAgICAgIC AgICAgICAgICAgICAgICAgICAgICAgICAgICAgICAg ICAgDQogICAgICAgICAgICAgICAgICAgICAgICAgICAgICAgICAgICAgICAgICAgICAgICAgICAgICAg ICAgICAgICAgICAgICAgICAgICAgICAgICAgICAgICAgICAgICAgICAgICAgDQogICAgICAgICAgICAg ICAgICAgICAgICAgICAgICAgICAgICAgICAgICAgIC AgICAgICAgICAgICAgICAgICAgICAgICAgICAgICAgICAgICAgICAgICAgICAgICAgICAgICAgDQogIC AgICAgICAgICAgICAgICAgICAgICAgICAgICAgICAgICAgICAgICAgICAgICAgICAgICAgICAgICAgIC AgICAgICAgICAgICAgICAgICAgICAgICAgICAgICAg ICAgICAgDQogICAgICAgICAgICAgICAgICAgICAgICAgICAgICAgICAgICAgICAgICAgICAgICAgICAg ICAgICAgICAgICAgICAgICAgICAgICAgICAgICAgICAgICAgICAgICAgICAgICAgDQogICAgICAgICAg ICAgICAgICAgICAgICAgICAgICAgICAgICAgICAgIC AgICAgICAgICAgICAgICAgICAgICAgICAgICAgICAgICAgICAgICAgICAgICAgICAgICAgICAgICAgDQ ogICAgICAgICAgICAgICAgICAgICAgICAgICAgICAgICAgICAgICAgICAgICAgICAgICAgICAgICAgIC AgICAgICAgICAgICAgICAgICAgICAgICAgICAgICAg ICAgICAgICAgDQogICAgICAgICAgICAgICAgICAgICAgICAgICAgICAgICAgICAgICAgICAgICAgICAg KKQdPPTaAKFiCJLiNOTpJZNoKRJkMDKdRILlCKVcLWQxFMQmSLVcNFRbTTCaOLEdURQlMGj1G9asEJMu BBDrBG9cBIr4Df7+NHnGPwXbXBG0ihAotM5MBW0ff4 QfNKfzJITfr6WiBBu0XH2OSVYbBNcaRD3ABQjfts2IXCOqXGJooBWRx4pjKpTaZXD3HCJuOrgtIO4GCL PkZ2optqKfIKSiMXXLEFlpJAEJAPolSHCSNYLsYCXzRkMhRwYhJWZgZX5ZPMRpR842krFtSK0KFt6QVs QdZE8idn6QJkAwGMSfOqpIHck8FLiyGN8TqFRqbAKq OtYaGJUMErXbK6tfw0CeUvCdNIYWPWgaHE2Wx5NlrGEbTNv+Sn7AGQ7br0DzLXllXiAzLE2cwb5MMZzU LeVlP7SdiBqsWOLqp1WjSDOrENWZxX2qYSO4CTZ4VOWwT9utzZLUICFywVQqEAGvBPPNQYQhlGInEtOc CnImCySfYEN6BTDhOV3sVMmmHJ3TGZV1GHgeAAWhDB SkJ6lTYwPhDXOsStAvlTamIN9FEjOyJ5FvgySvtZZxOLExUSEBXf1+UEwqpvTlSpjXSoNaYFTnk0UpPF t4HB0MHJQwCHisWM4QGXWgxC7lIUwjLJ1EDmNxLOIyQQNFQkLnH64tcEEyFDq7F4SkNuKuUDZqCqksUZ MgPDwvTmFtZXMgWyBdDQogID4+ID4+GLshWJ8RTPow yfIeJSIeFx4RJACmTBNuRK0uSQBeSOElH8S9xGbxZUNSYqCuE3yotwxpAI2wYRNlS064fWwojzOvHQSy AGPbFg3GTWUoBMP2QIAilZBhHnDmNJYCGDkeAJ3PrMFgQME5gB0lEHybSBPrRTPtR2wNGpPywPpvJM03 bGwgbnVsbCBdDQo+Wa3XOF9yj6DuIIk6lsOrDHdeME X6WDhtDAGrFAGmYJWaYPG6CNJ7OIUZZpZxUREkZECcFIorRTVrQMDtkk1PWBNwQKGbIzU0YGFaGUFkPE RvSJjuWDNwHDH5KkZ9TAAnCFFpFG1HJbMxNYQkPFUrAGloXFBcPWCkko4CICKyIEZwQum0OSKbNEWfPR UwRBckDIOeXFIqHWt0XBGqRXPqMG6AFiTvNIBrOIj5 YfGfXNTnROMufu5NCLLfFDOqHxv6FzNxFGVqGEQdMDodDQAtZLHmFuQ2EAOrTGGqQF4RVdWcGCEoZTO4 AOQwFQPkEQOgca8SVZVxQXTiUnbuNxWuPVKtPDVaKQlvVDIqEFY9CPAbXHXgYPBgVA3TQkCnSUUrMMn9 OSviQCSsNHSizk8SJWZbWQFgPXffCzVqKLYdCVHnMR seVNTmWTLkNxIeKETjNGEhSU2MXcPpKJIyZmA6VfWzIEHeDSPujw5LZISvDTCpNAQ1SjZwZIWkWYDaOX mbCSWbSEVtMSBeFBHvZXRzBI5JOgPxVQWmFyOkNWFsVXQaCBSsxh7XETUgKWAnPnY5CeDvRLPgBEHdSZ zfWBJmMMQhASJmKERzAOCwEB2OOuUhRICpIzU3UAWh HKHlWBLuej0NBXVnSJPlDhp3OYRiMAIqCJDdEPyfLUReVDN5ETPnKJKkBVTpMB1PJsRoHNZeSdV6KSnf IMNgCEDkfa3WMFCbPIXyMGT1QYYsGSAfROTrVPsuWWJyXZJ1HWPhGGHaSUHvLR6LNmPyKLFjCxVrXKHo ZYVwBIIxym6LBXEyXEAhNjOsDVScZBPqLIFgVXpvCR KvEWY8GUh2SYSxEVOyXV0FYzSbVCIxRil4RNbxTBEqOORphh6MLNFcCAClDZSvVLOlPXJcVAXaJCgxZF GrZFM0Uub7MRRzPDKmSG9CGvJcODyaCTLYQbr8HPfuB9g0CRScZO9MR8Pbg7UvYlCuRJIWDKnrMJ7all JzQKUfFq5RS6hYGiwtTVPfPFT1NxbxUMeiKKV5FCGj GBtdLDUiB7JbOHd2UK2vNRD2VgO4MacoX8T0YnTzUIcqOKPpVLLdMwFqKER4QSYeVtImHV9PHy5KXrL0 YHJ4dUNaOt5NIkh5LlhZYtXfQB5IRUj= ID Date Data Source [id number] 07/15/2019 06:01:55 PM [facility] Name Value Range Interpretation Code Description Data Hedy e(s) Supporting Document(s) History and Physical [facility] AYFGTl5lEcKTFyHs14/MULerLYCxj3SpIBueRRl3QEqdQDKhY8HwDES4xN7jMDU2DNqMRcKcXkZeUuIw lbm [file] +wj0Y6saHz0hQ8hzjy1an4GDcd7xc3JoxCfB/0q6+[place]/sYEKz4eh7+Ncn3OT3+Hc02EbU274w81nQK/ [file] ICAgICAgICAgICAgICAgICAgICAgICAgICAgICAgICAgICAgICAgICAgICAgICAgICAgICAgICAgICAg ICAgICAgICAgICAgICAgICAgICAgICAgICAgICAgDQogICAgICAgICAgICAgICAgICAgICAgICAgICAg ICAgICAgICAgICAgICAgICAgICAgICAgICAgICAgIC AgICAgICAgICAgICAgICAgICAgICAgICAgICAgICAgICAgICAgICAgDQogICAgICAgICAgICAgICAgIC AgICAgICAgICAgICAgICAgICAgICAgICAgICAgICAgICAgICAgICAgICAgICAgICAgICAgICAgICAgIC AgICAgICAgICAgICAgICAgICAgICAgDQogICAgICAg ICAgICAgICAgICAgICAgICAgICAgICAgICAgICAgICAgICAgICAgICAgICAgICAgICAgICAgICAgICAg ICAgICAgICAgICAgICAgICAgICAgICAgICAgICAgICAgDQogICAgICAgICAgICAgICAgICAgICAgICAg ICAgICAgICAgICAgICAgICAgICAgICAgICAgICAgIC AgICAgICAgICAgICAgICAgICAgICAgICAgICAgICAgICAgICAgICAgICAgDQogICAgICAgICAgICAgIC AgICAgICAgICAgICAgICAgICAgICAgICAgICAgICAgICAgICAgICAgICAgICAgICAgICAgICAgICAgIC AgICAgICAgICAgICAgICAgICAgICAgICAgDQogICAg ICAgICAgICAgICAgICAgICAgICAgICAgICAgICAgICAgICAgICAgICAgICAgICAgICAgICAgICAgICAg ICAgICAgICAgICAgICAgICAgICAgICAgICAgICAgICAgICAgDQogICAgICAgICAgICAgICAgICAgICAg ICAgICAgICAgICAgICAgICAgICAgICAgICAgICAgIC AgICAgICAgICAgICAgICAgICAgICAgICAgICAgICAgICAgICAgICAgICAgICAgDQogICAgICAgICAgIC AgICAgICAgICAgICAgICAgICAgICAgICAgICAgICAgICAgICAgICAgICAgICAgICAgICAgICAgICAgIC AgICAgICAgICAgICAgICAgICAgICAgICAgICAgDQog ICAgICAgICAgICAgICAgICAgICAgICAgICAgICAgICAgICAgICAgICAgICAgICAgICAgICAgICAgICAg VALrTNNzDRQuUCVuSKFcWJTwUAQyWGMdXUMlODBsEXVfXNYoBCIvUJd0Y9drLMMcOXCvTM0eCNe2Jz1+ QAyDPlWtXPT2lmBrzM6HTT3nn4CkYSoaQNAlj7FcXS a6XY8ENLBfZSvlSM5VXAckjh8ZOQLvMFJayXTMs9kjUcJwGVY8DHIjKdflYB5GMOLwQ6zvphMwWKQqJM UQSSidGSGZVScyOMMJATQpLBOnRzLpUyShAMEgTFWpTMBTDCI5LNDpBkFuHCykJH6Vm1ZooJD6NLx+Pg 3CQR5ak8XnYTb6BOVqUQ7orf7KMLyHVjSjV0LlrdB9 VRRfSQGbFt4FNBHtEBOjsEE7GHNuLEGBBsNtP4TeqM53MQKHJr7+VQqpllXsUmrKLnUiEKCnx2PwQHj6 MK0TTPLgUVi6nEHjOBWUJNO6CGV1tRExUZFfYLc1ynxuEKGFEUXskBOoCtPuYjCyMsHrZKX4XZylJG0u CApnPU0QRHJ4HHxuULMlOCJdO5wMFuKsYMOrYdAzjX jlNR9JOrMyL2OtbqRybYM7TPIkVJVWAf5+HCgbjhZcOftCVsFyZDAdd3JuOWy9FX4XHFYyZIavQQ8LUN NcsP0nYAxhVN0VXdPwFLBhZACPOmNcR30kxQXsGGo3Y3ZpPxQlMIRrEafaCMYiFWqaXlXuGPXxFdNaIA ogID4+ID4+SGysHP5PHQarprFvYJKfGn5CNTVsKGCt AA6fSHChYCWtX4X9dPsbOQQSLfJwJ0wmtejzGF4nYMDtF426tDbcrgIcFFPbMWCaOt5TOJUsYYT1JNGv hYUyGfnvYCVPCVdqRM8CtJVgMET7sC4iDXkmMMQuDQBoF3yFDdDuiBumVA38cFprdbUwmNEtRVx+Pg0K BS4bz9RnYQg2abCpDZwrBDVwQBhzWMLeUBKnJEGbEH V1QNC6ILYRZzKpOVGsQGChWJssLICxFOXagk3VRLTgPGU3MxUpASUdTZWvXEPuVBhyFWTcJUZ8WZe9VT OxXXZbTV3XKlGwHURmCCArNRoiYYMdKMIupt8LPSNxZRNcEyz0HhZqBGOoNOOdEIdnAMOkLEVoBPs3NI EqTCTiVC5QAuSzDRCzKJhwVMvyQHDnVKNehg5ZXEGj TZBrKdT6JHGiAHLpYAWqSVxmYGQtXMJaUkO3LTAcPYEmQO4QDyKbVSOpILP9JyjiFVNjCEGuja5UXWMo NYKiMpS6CDUgUSYpJWRlHWcxPKAdYGJkBMzzYKTcKBGvJR8STmEgKFCgFHW9CYXzAFEoAHSwyd2WZKPa MVCwZdw2HDHqTNImGXDePPajYLCoCZOgICF5FLPzGF HvNY2YJyGaUGSaOrQcIlCiJEDvNRLxdy6XHIIdLIBePiI2COMrVWYrSCShJCysNDIbMPYxXoP3FABvWI NsOK2EKnUiPWStXjRqByZgKZDzKFXxrd5STSReYRUaWGY0BGBzXXNzPCJoFJcfGIQzHFK0EvG4IUBdWX SuLD9NVtEzZAReUzK6IQVfCPYmVXThva5PYFNlKVCe KGppGURrDTKqAJIxHWcgJAXjVXK0OPxlMEGeQUKjOW5GWtYfGAKtVoW2YETxIRRjZUDnqx7QOIErDXKg YdL6AZPyMPAuDVVtZDkjHWUeIAP0ZgQmOBKuSCGgHL5ZHaFtEOKhHkwqZQIcGWGcWJFmds0IEVBsKZJy NBS9OICbUAMzPTTtGBqrGYMpSXG4ChgmVABgMURtNR 7UAaLxCOXrPVHdTtvqNZXmWULozn8AXJZsUMS9LCB6RDEtXWWhHIAjUHveRDSgKABpIFi1FEMmDSJsCD 2HJxUfLFOhTMF2SkPjVHRxPMOvcc6RPSVsMYA4ZBl7LNGqSEZjLWRgNPkxWVDsVNMjJLUnZCDgPVBfGK 2GJsAnYTFbVKEpAQTpCIAqESVqqa8OZVWaPYR6OyK7 BKLiTMIvZBJcQZbdOOPpLYKvUaJ4GSKmFWMfBG8HWfHmYUXdOIThJSGpOUWcURMzfw9BZAQgQSN8NXL7 YhXoDIMlRFPjEOaxYOGcYYW7RYH5FGGoSNWoNW5TTxFmPQliEVLXKun0KSiiF8k1OXT7Rt3TJ7Hjd9Rk GHXePFACMStiVK0yosLpRDMsXo0NQ2kETzm7BMVpPD WlKLToTXR7QbXjFSc3Orh9LhFcMPswNWGvIw0bOWmnZQKtIKUnSgNlTENdHNSoSaYbFZkeFjNhYGRtAG RfOdIsFF4ECe0IXpT6SDC1iPDbVp5XSGK4EuhJFhJiKS5WTTa= ID Date Data Source [id number] 07/15/2019 06:12:30 PM [facility] Name Value Range Interpretation Code Description Data Hedy rce(s) Supporting Document(s) Glucose [Mass/volume] in Capillary blood by Glucometer 150 mg/dL 70- 140 H [facility] ID Date Data Source [id number] 07/15/2019 05:10:09 PM [facility] Name Value Range Interpretation Code Description Data Hedy rce(s) Supporting Document(s) Progress Note [facility] CZAIZv0rPwQKLhRw07/AKWsyGWQol3YlPYcuNMf2YUemSUQeQ3ZgIFZ4kJ4yZCS9ZMyZCiVnNbNaQfId lbm [file] DQo= ID Date Data Source [id number] 07/15/2019 05:01:22 PM [facility] Name Value Range Interpretation Code Description Data Hedy rce(s) Supporting Document(s) Consultation [facility] PQIJTi7vBaXGDbXq13/MYPuoZWYhr7JvQKjyCQa9JHqeXLZdQ6CaBIW9qV0dSSE8SAcEKzRkSyIoIrYi lbm [file] +RtRW+sdTyuYMkevwXioJ/dsTK2CdP5G/3KiDJ [file] ICAgICAgICAgICAgICAgICAgICAgICAgICAgICAgIC WqCYXrWAToGAGlBSAjSIIlSWIjZKAeWCSaHOIeFVTcJGIiKRPjGHXwAS9FHICxGBImZSAeAINyRXEyPS AgICAgICAgICAgICAgICAgICAgICAgICAgICAgICAgICAgICAgICAgICAgICAgICAgICAgICAgICAgIC KwAWMmOFBqHGHtVKYvDPGoBZNmEIErZK9PEIEgRPGd ICAgICAgICAgICAgICAgICAgICAgICAgICAgICAgICAgICAgICAgICAgICAgICAgICAgICAgICAgICAg SWEiYOYyYYGhFXBdOOGtKKYzSGFcYVAlEBUjKVKuSAMfAG2UTTZnDZCnAUYrRURwVCSxRCMxDZRoRFHy ICAgICAgICAgICAgICAgICAgICAgICAgICAgICAgIC McDIQkAFCoVRXcYDVfLHCzQFRqGWTaMYTnXJVcTHQmNXJkUCZwNMPmRZKjOI9EPNMsWYYqJQSkCLWdRP AgICAgICAgICAgICAgICAgICAgICAgICAgICAgICAgICAgICAgICAgICAgICAgICAgICAgICAgICAgIC KoQFYoDQNnRWLoDJMiSKZcFRGrDEFiDITdXI4OLCUt ICAgICAgICAgICAgICAgICAgICAgICAgICAgICAgICAgICAgICAgICAgICAgICAgICAgICAgICAgICAg GWQpWJJkOAWzFTYyVOUsSTPeYKZfEHFoNEKhGLSkUQJnITMmPB3LVEHtGFYaWUSqDXPeYDLsHJHkZVPc ICAgICAgICAgICAgICAgICAgICAgICAgICAgICAgIC LzNJMlUIBfSQKfFTHqOZAcYNNxILJaJRZgSWLmNGKzRLGvLLImFSCtGWZcQZQeRH6XKQBhIKAiFGItXS AgICAgICAgICAgICAgICAgICAgICAgICAgICAgICAgICAgICAgICAgICAgICAgICAgICAgICAgICAgIC MdHRBfZTEiLBDjKQZvQWBeDTCmFZIoPYNqBBXbJR5C ICAgICAgICAgICAgICAgICAgICAgICAgICAgICAgICAgICAgICAgICAgICAgICAgICAgICAgICAgICAg MUAvVYNcALXkBKTmBFSrXAVpUJRuPGXtCHHjAHDqHJEmENKtRJIqLS6GJNIcGJVdJVCpXOVaCHCoONKj ICAgICAgICAgICAgICAgICAgICAgICAgICAgICAgIC SuAWBoQPEdDOBpTGZeJAFrTMLsNEVoCWJlFCLiJAPhIZZbAGNwSTRpHJZyKUZeVIXxNH0DZY57oDXni6 K7FQNpOK4qqvv/Mm9MHPkbrxBioUYaAQ1LKpSgOL8fli4ZIvWvZD5ndu3YNFnOFlEvZ8M1vLAoDVRiGM WYNiRfJ10aKRsdHo31BHntDGAhYqOkAVr4Rl9RCtDv F6gtDSUiPpY1QYWgTbT5QBXfBiF5DHUmFxCyYTMuMGOcIX1ZMILiS854vqAxIN9BEw2LAwDuKQ3xds7I KqUeZCOsNheCPgh4VIhpYI0DmJWfiORkLYAzADOFQuSuS3jni8PaArPfFXCPCJzjCU0Np2AzgHCaMXe+ Xm6ARR8ul1JfXGboBMVyLH2qym8LBWrGCfFlY5HicG rpTFGxnoW9sGAgIYY5BKZug4ymjMXmN2XrbtzzryRaGYcfOA8YFsNuxHRbOoIeHxPnDtLzPQX7TSZiGY 2pICniTS5PDJQ5JBdeSYGzLOVbP2fWFwEyPKKaRuGyuPntYQ9QUnTiD6EcukJrgPKzIRIfBJSLBq1+DQ vxyrEdNpwFNrIlWECwq2RzOHe0VO7ZHMCpMYtkAD9A PJShcT8dKDihHX5WCeRdOGDeTGWEJqWdN88ywRScTLq0I3TzBjBlVGEzJopwGENnDGpsBhWvAOYzIuXe DQogID4+ID4+FNauIU1JICnjeyExEUHsSh5JRCWyZNAkYX7iMFZmVRIxZ4R7pMyiUBETEbGjG3dcsncx GW5qZIDhR841pMwgvzOhMRLjMAYcSu6ETWBzOAA6WA WbnWXoKOmoILUSWAysDS1MxMBzUTQ5hY2qCDidEVDoDEOcU6oRHiEzkWftBP22zPyhcfVkfJWuMSu+Pg 2EIV2vi8OcUAy6tnGsZSifRQXhAAzlNSMdKXPsTPRwGJR8KKK5UGDBHyPlUHBuRFAnZAldNJDoGYIsdd 3JGOHrXWFoTJSpQfMmIXZuLKHjXBfhPRXhTLNsSsP2 OEOiSZBzIH0CDsAwLMGhBJPmQYhyRJNsZJOnuj8ORUKmAMWrBYFlErFjUUHhMZNaPSjeFWYpXOD0QdQy DWRaDNQlCI7MMkGpCYFgYKd0ZRDmMNGeSZXzij5JOFReWCIxNTM8RJJdDMTyQQKqOHhsKKVmYUCuKPv7 RDSlFRQdDH0FAyEjRJKeIEWoSEPlLIOxAYCaor8XHF EzCQEoKRQgTLSoLIViCCLkMKlcMJBsZZE6ALXkGILvQCSoVH9JWnPdHKRgHRH3XhRmLZTpMXMpom4VIF HgIPUfFgp5MtGeEPHaVYBsGWbfJVAlOIL4RHYmTRWbEAZfMN4AEvNdAZLeAQmlTPveBTLsEKGrpn4SIA EjAKObUDGgYSCtNZIyOGYyNFvnMHEeKPO8PDv7AXYv HTVoEW6KEtTmWKZxBCs7DHIyFRYkTQRniv0MNQMtSXDzARU4WKVbMCNsHUYySIurZKPaHPSbWXFcMZXr JMChNI6FOwLvVMAeHaS6RTAbRUJbMZAfah8LlVJwtBnwfl8IYLuTDa4CzEbcTMQcUZtiMl7ptNAiRtAo ZIOVKs1CipQoBUMfGIGHROnlQUBwWNIuPXJuSEZ0Ks H9DCW4QgW4OWGeUuT7OCWkNlAyOTUpKkY8LdAkLqZpWnWmCzo5VVDmTHz9CEGaDNddOoTxPAYoZKE+IF 0gDQo+Pt9Uz9BgnuH3wqMcZDkeVVlcHQ5OQGGHI7OGOu== ID Date Data Source [id number] 07/15/2019 04:08:30 PM [facility] Name Value Range Interpretation Code Description Data Hedy rce(s) Supporting Document(s) Progress Note [facility] UJJTZc9lLoBYSyEr64/UPEffSJWdx7PuJStjUFw6NZgbBNGdW7ApOTY2cC8nDYM0XOqYNoZgVyAyKgNd lbm [file] AgICAgICAgICAgICAgICAgICAgICAgICAgICAgICAg URBdCDJlOIKgMXWgPLXqGXGlGFFfZJStGUPkFRFcAFNiPADaATZbJCRfACSuKAZoZUNkPN8TCSIcNCGc ICAgICAgICAgICAgICAgICAgICAgICAgICAgICAgICAgICAgICAgICAgICAgICAgICAgICAgICAgICAg ICAgICAgICAgICAgICAgICAgICAgICAgICAgICAgIC IkTX7LHYHzOQFyZCPiBQEsVLRfQJUyWSUpVGEcMQIuSDVcNFRaOPAoNUFdEMKlKGWzBYWxLUUxGHSoEN NkRRVyFIHlWQKjFROmGYBqKTUzNETxSTTzIJMtARUyWOYiCYLnWWTtMQLrVB9MBCTnEJNrVCZuELNkGX AgICAgICAgICAgICAgICAgICAgICAgICAgICAgICAg FOXmHFLjMMYuGKIrRHPsJERgAPEwVFEcCZQsZHOnQSWrGKDjGNNdHLFbBLWlNGEwOUMwYBRpWU7HQSPb ICAgICAgICAgICAgICAgICAgICAgICAgICAgICAgICAgICAgICAgICAgICAgICAgICAgICAgICAgICAg ICAgICAgICAgICAgICAgICAgICAgICAgICAgICAgIC UbDDVbQT7PPUAsYPWaJQBoIPAuQAVfGIPzLESeQOPmLRKvLAMoPSEvZMXwVGLsZDGyKKSjFXMhYWSgOP KkKRVbKXWnLBLqNFXdRYEgIKCcROCjHVFrYHFoRQWiASWbCPEyRQMjRFMdVOPuLW6PPPHuGWMoLDTrXK AgICAgICAgICAgICAgICAgICAgICAgICAgICAgICAg ODQhJMIvATBsLEWuYZQuMHWnKNKwAFBfHELuHRXtVEMyHWRiYKWrEJQwTEZdSVPcISClSJHhJDMyOP9Z ICAgICAgICAgICAgICAgICAgICAgICAgICAgICAgICAgICAgICAgICAgICAgICAgICAgICAgICAgICAg ICAgICAgICAgICAgICAgICAgICAgICAgICAgICAgIC SiHPMjMWViHW0XQKTdSYUkLDOmNTEcAAMeTAGhJWSjUQItXIDqEKTiERQdESIwTZAuBVXtZHAhLTOnFS IwLYDlFQNsXIRfONTgFUVjVYDpHAXrPHSlPMQtCQSaWALyCVXqHDNgEDOdCIGyCSKcIR4TJWPvSPZzFK AgICAgICAgICAgICAgICAgICAgICAgICAgICAgICAg ICAgICAgICAgICAgICAgICAgICAgICAgICAgICAgICAgICAgICAgICAgICAgICAgICAgICAgICAgICAg IT6YSF38mMMne8B2UVMoDJ4osec/Cd5TIVdfyhFjyRNmFF9JKmKaVS3rqt5BFiRkEW6rgk3IDSpFSkLh H7W2iWMvSBVvSZSGFtVlH81jWEasTl16MJciVKZkEr NsPAp7Kw1IReSqD5dgYYZoXoM3ARWqJiLsUNvwAD2Er9CojQGcAKt+Xw8XRL1iq1AmVGjxUTJhVE9irp 8SOAlZRbFbN8YhmkN7FRL2KEJlAp5AVXFfSHEccDBvVLDbCBCROsXeP9SkkX85TFQEZf2+DQplbmRvYm sSMvM7BVYvo5NkGQr9XX9YASShXDq8lSKfVFNqG6Vj v6ZrHx66YXItAgxxID41TB3oqeWzP5RhYNxqBj0pBXKzYe1fUD1sCMVvHRQ0CwL0KEZVET8ILSJmPIGl yAHpWSWyCRBVXL6VOCftIZZ4NSSlcqOfqTTsGEguSL9AIKNvihEyAPKlHYWQZHs+Ud6HHE1ys4JqLOvq LuGxXW9amw0YBHoOWpCeN0M0sIOiJ8C7LXvhCb0WZM QlBKQcMNJoHSBLHTnbDF1UEU8kinB7HF1HpSIaLDNjIVOboBDgKDv2T63drBQkLBvrIV7ELFV+Lambert+Pg 2YXIViZXScVUHqSeMfZTHNOoZmX8GzN5XPs7CtJ7QwEE99sSjbknNiBNumVU6IIO7qLNKkMZBHUU4DsJ YidQ3bflZrMWPbOBJYHeMfO98yfHSoFNZbHQXgGUYk Ik8MEYMbA1KpwwPvmAzgisDoTNIrGFPEUT8QIOqndtTanJHtgEwnXS13zXbrDR3HOq1EOhGnKL6xmn9I dLZgQe0FDYLoJn7SXYZmIAOcZWIlVYB1QTBoIqIjDIkrJBPzLMKcXLE1WZYnDVNuVF9SVxJcTPAeOJQ2 NCYbXTIaRRQqxo4CFWKxBXZfLpI2PJGfOJPzJORvWC bdXYZdZCOzEHN7NEPbGERsSZ4QQoHwNVFoDGU8UwVmOJEwSGHmea8YLNQtABZoDMxlRVYeWJLyXRXaBD llAJNoBWJpUac6ICZqTOCyEM7OPwXfLUIiZKH5CMDdCWAhAMZawj7ZPXCkMYYjLeN3COCnNQSfUNHvJX nfIKTdNWT7WGTrXSSyWKQfEI1WByJbBBGvPNGfGeBo TISkNYWgzj0XCXJoRYYzYLWxTDRhAFEwACUbEAkvFRMwCVG7VRR9HFTuKFPuIA3SHmMpUWKxVYLsAjNv IVPiTIByat4HBNZgXAUpXkQpUBVyCAMpMCYlOPemNRXgTVP2DDavIJNoCHLbPK0SJmIsFNzpEKEQBfe6 OOelY7g0TMVxWi4OE5Urv8CiCYJdLVQJWXpbIL0iic GpNKLsYj5CD7aVCew0WJG3Vdv5Gfo8MmEcDFYrLHTnVzInEzJlDLN5IAW3VH3cYVb5RYulEYuqKyWuCe XpKMT9VWEdCjKlEGEhLnMgOZP0FxZkEP4JEa5JIkK7HQB5bFYdAd1ZUbknMh6SPWJJR2ZHEk== ID Date Data Source [id number] 07/15/2019 03:27:15 PM [facility] Name Value Range Interpretation Code Description Data Hedy rce(s) Supporting Document(s) Consultation [facility] BEFGZn8fVpMXXmLn22/CGDrsGKQeh0DcNXrlIHf9TKuiPTFfP7RxLQO9zR2rFAK8CQlWNdLbWpXcFuYk lbm RpGnsPLmSqBBOgMomLPmZqMExiJefgyELoYP4KqMZ3NOHfE19sSVTtQYLhG5TsFVE0Hec+Dv6PAYCfgT JrMW3LYcaX7P4Cm3hQWS7HvB/OTPCZl0tYl5mMncXBwum2hDpZELXITmSVVv96Ke4IkOzsPn/lSUO4vE 6eb0AtnDFIVbOUVN8V56RHRPDWxw+IuoU8FMegT/Wf MakR7Bx5+U+ljpeR2AIZb+wicoNyIicsbkj/rUBzz9j9BoYwZuLxVj0c1aPnYRNtfON8grxzRMn7Svk+ MYUzvt6eCP/ROEuZxF28GdEQRBWHw9uQjS8Vhepqlo8s2t5BZvIdCEFADJ2jgW2cRILv8EmWv3F5is/P crLq+Ei8f6gZCy3/aNZr8KOGAsqSrZNmxNbQQ1/l9N Gl+ZX0XHjf3YVsXFcf39NDFU7r3XbYdM2IPhiwQqepbAur+30BwkpCx5MmSd/8BcYFGsje8lNJ6Mv6+V eJuLHLP+YlDeTpgddCnV8fW8IilK4oIxaBOC00GHZ/s3qe7LgEwHc5cdqq253f5/Y8o+ILo4NTgpfkQe if/FrzHWQvykNhqVi2eameAxLZYRog0Z2NJS0Pu08F ol854YZewk0QezlTm51OQ4cAPXbCeHNGss36+nEsxy1KwLhkCEngLt9tO+0SUonRI2WZeq+20vVgMlkl q5jYS8WyigDt1KuiomT/g9fVNr6rlpeScWWYkAEGosLxH39KfFkTwr5u6IxxnP0VUeHGzDk/KMgtZoOF A8s6DuSFx9RLk7cxNiSrqMedT1IO2HnaAgEqulcKG0 /RbLye2ahunVv+4SgvFB+eHS/nDe7cs2frAPXtnur/URdNiYvWuiyoGjekWqe+zYnnZI2qE7Nmyxddjo SRqGSzsJtqjUDFS8E8DnGJ3yzW/T3lCJFe5DTarChWmM/F5dR+LtC5Om9D6Sut/x2tOrjLrWCGhZJTH5 UHk/yysrYEzd3lTDKGPbq9LG+Stephy/VL23Iv3BXso/f [file] 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 SHFNTp3jAbIARlKl92/YAAlzDTTsc9EhJIkiTBi6QZewGIKfU5GiOPR9uL9iIDL0RHbYGqXlOnHqQkFi lbm [file] x7GmtoM8zrMcGUrfDqn4JK0DTMVMU4WXSu== ID Date Data Source [id number] 07/15/2019 12:23:22 PM [facility] Name Value Range Interpretation Code Description Data Hedy rce(s) Supporting Document(s) [facility] LEJFLv0tRoVMLjUbp7VqFcAdKBOrPB0jmuq7Q8H2rWVrY9BaxXAug2rjE3ErC8JdWRLcFRSRYF9BaFKl jb2 [file] 7dmpW37mnA8XYu2Cu+director business intelligence/U7hLgSN8aiu/V1g46Ewsmkh952nki+jv6S3ZwsIb2qauEGHvc0XJC18KpC [file] DIRECT CARE WORKER+0LG80nzXvdJKjkWHF54KaxmO58um4Ioyc753Q5E +i2MPgGCs6uYsXhxhH24Sdn8HJ+TSZ5T19Hap52npwSi6rxHO8/phH0mT218xn67i/c6/5hdfQ87l5t8 gSqie3LGIIVh4SbMqyovrg+FWz9QH/gbY8hk4rgrzmC5S1/zYdYbwl1xF+U1Xi9pX6Igs0/6Hcvv40MS qeMWet86BzgMitI58vNt3fJW39P4Ml/Kubh+lf2O+v 56LMwZ/6U8Gi242bsX1TEdrnsyJaWSSExd+MSuQME5cWY+ejQVgmgjFxywy6A00TgQWq+Enw4e571Vdd e5qpUdh+SjA+4VnVWrj5nUx4ksV77TGLW3jS/kx1HUdw753F7gqdZ019gzgz3fhhhe7tkJv2xD6Ajrg7 Wf+yMDf3y56hEpfft6HgzKWR+aN3SV59xlEeYu774Q furmGdf9Edeuapx2zZ/FvWG/hjQz2elhpq/9p3pdg77MBaXHJcCR5RV6aUeKN0pkS+g1Vk7ModpCiocj mY8wbpOkx8foJvd+dilX1VumebyGj9N3K81h7XR/UF/1r5qpbNY7rWe8SgCz4pqgT+wZvNxjk8q+Nvrd VR/7n2Mi52Oh5464HVrxGVups2hpnOmMH5wJRL+TIAGO [file] Txv/3Pj19/+9Etmh939195/Aide/+Pj5T/5i5ladk/ftNz/7+If/1tY//PnHH//zUE2f2E/4vYH9IxrTs0 W//fl/hgYITvlT1K///i//iN3d2Phayp/1249Hec7TXOMJ05u/L7iuTF/u/u/Pf5/hWneP6Ca//BkX62 qfU7Xv4AojY6WYIt3R9J6/1+aB50und7wp57Vcu/fP v/c2m9YSwtTk5e14/fNvfvnxm6+//8Wvf/NrI3mrp7rmRY7Z535v3k0Hqud50ofB2F45DSvRl2IEzsD5 fli8X//uD//x3z/+7bf/8bsvWv/17P5RUli7zp/dKPon0MhgG006WS/2+49/+cN//O7f/sdv//W/aP6I 9MvmY+yHN/+L1g/v777/5cc//d+fY/+XP/8bZ9j6YW J/3bq9eQo/98Nf/t0P/5xHuL0Df1/jo6Z7L4l/PRiqZx4kfKScX3zNuc/HkmaoS5p6aE/7o+9/9MPHb/ +f3/61a9605gXj+0df/+pvfvRmuPl8/z738v/5b//b078b8BcLI//st90fbKkK9S/619/+4//1n++9Av j+j3/8/Vdf65/wz2B/9sd//AgMUe1LOsT2+T/87h// jz/8yz/+y2//6TVHPe43u2slBFnw4c//x+dy+aevfvzrr/9zf/4F9/fkFz//+Tff/fDLr/j+vl+m//9L 3nOIfMzcEP/2t//14c0coz//+yBFV4sEz68vRy/vvB5vv9deMj/20zyI6R1e2bhmK2//6PniCav7Z/Ms VV//+Mef2+nntf1N/DA+tb59Wv//XYDdA2QROW6iz8 YkPLPuCuThAJ0htjdaNQPuVF2nlez0Y5ZwzJggUSbDNYGgJu0eyAInNB1DKYA0NSlfTXGgUBTwQ0AahW 0fX06wpMHvFcYzXVQONC3XvwX0HKG8RMQ8TWOpCuDfHVKvDC11DZHuJSPPUn2vseHfPgnRXdFwGJ0tgh s2N2G4jFZzE726kAttidYgWI3Ph6LtuKUtUW2EmEYj mUFyWWFjBQBoS8amk3AqJIlcOKQYGb3ikdRySapIEyGpCM4uwwh7L5X7mLtknqObDHYWLJutVjbjGP5a aNleyponQ9FxlIMbMMQoK1OzSPYrt81SCEOuYHcCTjJiNhBwCtKpMDEwCzkoVzLsXRIkLUAjHQPjZF2S kAXtXGBdOKGEXMyrMrdnECTmvI1cuXROh7KaC21GPX EEZHBAPP0HMAMXTQVlSgp1TEJtJN0MjVUgQBN0UVeSAHLRPNxVYZuwCiUuz5L9IUFaJ9VjFLOrfgSqEY KGYZoyKtvhSU5bdBdpxwsyR2XbnCMlHVFQTLEkSXGeVHDlHWRhQ1Lgf3C3S3YeOAsQFBLCTQoCVVloNw A8e16rjpAUOOSsKPVlVJ4+ZO3ma1MbVa5OJCTtOY7y eso5DN1QqLUwXE2WJKzbyaWaZ7waggVrAqUaHIQWMT4gZ4VmfC24SDH+GzIwHS4uvpn2jfLsKvDdDTQy YZNsPFXvLBpiZDKqTFYjRLRnBHH6BTL6MDEpVgIkODMtZjs6UAJzXAKoIBGyjyZPLCYtYIF4XOF8DETs MEChOQObOIcsCGEvLYC6QMC4TSYtCCUrSX9pMpXcBX JaLYToYYKxHzV0XnTuMmSKIKDjSCHdYIAoKdOaNUAnYSPbMLeaNQRlSGBeEWi8IOTrKXVsXO2xJfYyUF VgDXKwCDNnEUVrOTGzqgJEWMJtYVBoIMR9UUHtEWMnIVAxNQbhPMNaUDByYPF8GBOpFTUsSJ7qGwIcVY EpZEK8AjTzZVMyXUZirmDSUWJoAIBtKVR7PSReFPEa UVVeWTrwDJJbIZOnYxS6PYMiEIOgEK2sKhGaGHYsYSH4SCEiUTImMWZavpFOYMUgMZLeZDy2QbOzKDHm CTLhZKawVUKgNXUcOFtzYLLyFFAjCV6eAeZaPDGeOLZgMZUaPVYnVSAfpsDPZOGhHSJyXLE0WmXiLOZi VJTgLHnvLTTsOUNhVQE1KQWhSXIoQQ9nNkEpAANpRt aiSIvlXZXiFWKineNFVUHsGUPpOMSdXAAtCZBoIHIpILplPNGySFZgVvW6WIUaKFOcJD6xZiMbQYFcDT Y9MJFnYEBgVFBhkaIJQRPtRAJkYROcQPY8PLJsFHTaWOw0knJfcHHvFoe8Rh3CfEloCGR0Wg2XzeCoHL OoJWFJCe4Jf595GRGtSXYJNbm+RnufcHKkfCyuZGKIQhk1RGFCJVHJT7T= ID Date Data Source [id number] 07/15/2019 12:04:24 PM [facility] Name Value Range Interpretation Code Description Data Hedy rce(s) Supporting Document(s) Glucose [Mass/volume] in Capillary blood by Glucometer 247 mg/dL 70- 140 H [facility] ID Date Data Source [id number] 07/15/2019 09:04:18 AM [facility] Name Value Range Interpretation Code Description Data Hedy rce(s) Supporting Document(s) Progress Note [facility] NPWZSu6gPkTLPmMm10/SRZgkFZUha5NcZUicRIt2QHwwYSCjR3IrSXF6zX1tRWV0FLaJPqHwOdHkFpOh lbm [file] klGTSiFuRsUXqbA3G9JzZoMTJqPAS+CL1eWYh+Eb5Nb7SthiQ6zbPqTKb2CWR7KYnyQSTRNg8C ID Date Data Source [id number] 07/15/2019 08:09:52 AM [facility] Name Value Range Interpretation Code Description Data Hedy rce(s) Supporting Document(s) Glucose [Mass/volume] in Capillary blood by Glucometer 183 mg/dL 70- 140 H [facility] ID Date Data Source [id number] 07/15/2019 03:07:10 AM [facility] Name Value Range Interpretation Code Description Data Hedy rce(s) Supporting Document(s) Progress Note [facility] TRNLMh1jYoXVRfLr22/IERdgUBIfg9OiVRazYDr4CFrcGQUuY5LyEDN5wQ3mDLQ8BGnJLoUlRvXfHzHw lbm [file] I+DE7vSPc+Uj5Ue6AjtsV3anSxQNddCnkyMeQCEeLqTE8XDVu= ID Date Data Source [id number] 07/15/2019 02:18:32 AM EST [facility] Name Value Range Interpretation Code Description Data Hedy rce(s) Supporting Document(s) Color of Urine [facility] Clarity of Urine [facility] Specific gravity of Urine by Refractometry automated 1.003 -1.030 H [facility] pH of Urine by Automated test strip 6.0 5.0-8.0 [facility] Protein [Mass/volume] in Urine by Automated test strip Neg [facility] Glucose [Mass/volume] in Urine by Automated test strip Neg [facility] Ketones [Mass/volume] in Urine by Automated test strip 5 mg/dL Neg [facility] Bilirubin.total [Presence] in Urine by Automated test strip Negative [facility] Hemoglobin [Presence] in Urine by Automated test strip Neg [facility] Leukocyte esterase [Presence] in Urine by Automated test strip Negative [facility] Nitrite [Presence] in Urine by Automated test strip Negati ve [facility] Leukocytes [#/area] in Urine sediment by Automated count 1 /HPF 0 -5 [facility] Erythrocytes [#/area] in Urine sediment by Automated count 1 /HPF 0-3 [facility] Epithelial cells.squamous [#/area] in Urine sediment by Auto mated count 1 /HPF None [facility] Mucus [#/area] in Urine sediment by Microscopy low power field None [facility] ID Date Data Source [id number] 07/15/2019 03:00:06 AM [facility] Name Value Range Interpretation Code Description Data Hedy rce(s) Supporting Document(s) Amphetamine [Presence] in Urine by Screen method Negative [facility] (NOTE)Positive results are presumptive a nd unconfirmed;confirmatorytesting can be ordered at the [facility] at [address] [place] [address] [address] within 5 days of collection. Benzodiazepines [facility]Presence[facility] Cannabinoids [Presence] in Urine by Screen method Negative [facility] (NOTE)Positive results are presumptive a nd unconfirmed;confirmatorytesting can be ordered at the [facility] at [address] [place] [address] at [phone] within 5 days of collection. Benzoylecgonine [Presence] in Urine by Screen method Health system Methadone [Presence] in Urine by Screen method Negative [facility] Opiates [Presence] in Urine by Screen method Negative [facility] Oxycodone [Presence] in Urine by Screen method Negative [facility] Fentanyl+Norfentanyl [Presence] in Urine by Screen method [facility] Service comment [facility] Results below the indicated cutoff (ng/m L), are reported as"Negative." Note: for medical purposes only; not valid for legalor employment testing. ID Date Data Source [id number] 07/14/2019 10:07:14 PM [facility] Name Value Range Interpretation Code Description Data Hedy rce(s) Supporting Document(s) Glucose [Mass/volume] in Capillary blood by Glucometer 220 mg/dL 70- 140 H [facility] ID Date Data Source [id number] 07/14/2019 07:13:23 PM [facility] CT ANGIOGRAPHY NECK [id number] RESULTInt erpreted by:Dio Colvin, MDCT ANGIOGRAPHY HEAD [address], CT ANGIOGRAPHY NECK [id number] INDICATION: Evaluate for CVA/occlusion. Aphasia. Bilateral lower [...] rce(s) Supporting Document(s) ID Date Data Source [id number] 07/14/2019 07:13:23 PM [facility] CT ANGIOGRAPHY HEAD [id number] RESULTInt erpreted by:Dio Colvin, MDCT ANGIOGRAPHY HEAD [address], CT ANGIOGRAPHY NECK [id number] INDICATION: Evaluate for CVA/occlusion. Aphasia. Bilateral lower [...] rce(s) Supporting Document(s) ID Date Data Source [id number] 07/14/2019 06:49:57 PM [facility] Name Value Range Interpretation Code Description Data Hedy rce(s) Supporting Document(s) [facility] HKMSTk7eQxSEJiHk51/BWRtlWYCzr9ZaIAjdEJb7GRojVWRwT6ReQBC8wC5tLCX8FGyOAvHqBuLdGnPu lbm YtEzhRWeLqHODwCdhGTsShWNnlRqwkyOFhAU7LjGC8DYLbU39uLDOzHXNzG1MtGNC8Ugz+Jn5AYWHglX YsFR9HPlzN9Fnrl3b1TW/qHY2Eth6ep5dEDoLKIY8mq56nOv4tza839otBmCdcfPO0iAv092sqQMZev7 8gIYr7ebcTRkB3QJ8nc0/7ByApxso//2GDWAVBwIq/ k29wDjmLrM99F4owClTlKh9AZEINdBLLvXxG+Yf01tzPSlq+l6ABydvrKsdubO6MwoxQYmsLDuw+Zxf/ OluEK8BLiFhAeGsUZPcPYVRQEYuA7zmyO8tVKmqSYqhoxkMolFkCTCGOE0RGg5obJuTBX+SvVS5Nm98h 6RQ/pIV3N9pm+hkkIacALimCZEyOKkhKSF4+t/TJBf i8FlB4XOF4lNKTy+uUeWTOeSRXzLlPxiKuscuyiddFK+Vu6GJFyqJfi2zDYTSLa1ekaQ8Gz95vqG/+hr dwAoQOtpNgTcOdaQYySHSAPlbyYilK/Mpy4HBKukA5tl5Oot+mV3f+PFQYVMUiAPr7TOyTxW+8gEFUGC 8upVWxkqpytg8yTpZO+f+ZgnvzndTGayvfDdNf/Lms [file] ID Date Data Source [id number] 07/14/2019 06:19:53 PM [facility] XR CHEST FRONTAL ONLY [id number] RESULTI nterpreted by:Anu Sotelo MDINDICATION: Eval heart.TECHNIQUE: [...] Date Data Source [id number] 07/14/2019 06:10:35 PM [facility] Name Value Range Interpretation Code Description Data Hedy rce(s) Supporting Document(s) Carboxyhemoglobin/Hemoglobin.total in Blood 3.1 %{Hb} <6.5 [facility] (NOTE)Nonsmokers: < 2.0%Smokers: < 9.0%Toxic: >20.0% ID Date Data Source [id number] 07/14/2019 06:23:27 PM [facility] Name Value Range Interpretation Code Description Data Hedy rce(s) Supporting Document(s) Leukocytes [#/volume] in Blood by Automated count 4.2 10*3/uL 4-10 [facility] Erythrocytes [#/volume] in Blood by Automated count 4.16 10*6/uL 4.6- 6.1 L [facility] Hemoglobin [Mass/volume] in Blood 12.1 g/dL 13.5-18 L [facility] Hematocrit [Volume Fraction] of Blood by Automated count 36.1 % 4 1-53 L [facility] Erythrocyte mean corpuscular volume [Entitic volume] by Auto mated count 86.7 fL 80-96 [facility] Erythrocyte mean corpuscular hemoglobin [Entitic mass] by Automated count 29.0 pg 27-33 [facility] Erythrocyte mean corpuscular hemoglobin concentration [Mass/volume] by Automated count 33.5 g/dL [facility].0-[facility] width [Ratio] by Automated count 14.5 % 11.5-14.5 [facility] Platelets [#/volume] in Blood by Automated count 247 10*3/uL 150-400 [facility] Differential cell count method - Blood [facility] Neutrophils/100 leukocytes in Blood by Automated count 42 % [facility] Lymphocytes/100 leukocytes in Blood by Automated count 45 % [facility] Monocytes/100 leukocytes in Blood by Automated count 10 % [facility] Eosinophils/100 leukocytes in Blood by Automated count 2 % [facility] Basophils/100 leukocytes in Blood by Automated count 1 % [facility] Neutrophils [#/volume] in Blood by Automated count 1.76 10*3/uL 1.8-7 .0 L [facility] Lymphocytes [#/volume] in Blood by Automated count 1.93 10*3/uL 1.2-4 .0 [facility] Monocytes [#/volume] in Blood by Automated count 0.40 10*3/uL 0-0.8 [facility] Eosinophils [#/volume] in Blood by Automated count 0.08 10*3/uL 0-0.5 [facility] Basophils [#/volume] in Blood by Automated count 0.06 10*3/uL 0-0.2 [facility] Nucleated erythrocytes/100 leukocytes [Ratio] in Blood by Automated count 0 /100{WBCs} 0-0 [facility] ID Date Data Source [id number] 07/14/2019 06:26:35 PM [facility] Name Value Range Interpretation Code Description Data Hedy rce(s) Supporting Document(s) Prothrombin time (PT) 13.9 s 12.5-14.9 [facility] INR in Platelet poor plasma by Coagulation assay 1.04 [facility] Routine intensity oral anticoagulation I NR is typically 2.0-3.0. Target INR must be clinically individualized. ID Date Data Source [id number] 07/14/2019 06:26:35 PM [facility] Value Range Interpretation Code Description Data Hedy rce(s) Supporting Document(s) aPTT in Platelet poor plasma by Coagulation assay 29.8 s 24.0-34. 0 [facility] ID Date Data Source [id number] 07/14/2019 06:45:24 PM [facility] Value Range Interpretation Code Description Data Hedy rce(s) Supporting Document(s) Acetaminophen [Mass/volume] in Serum or Plasma 10.0-30.0 L [facility] ID Date Data Source [id number] 07/14/2019 06:45:24 PM [facility] Value Range Interpretation Code Description Data Hedy rce(s) Supporting Document(s) Ethanol [Mass/volume] in Serum or Plasma Negative [facility] ID Date Data Source [id number] 07/14/2019 06:45:24 PM [facility] Value Range Interpretation Code Description Data Hedy rce(s) Supporting Document(s) Thyroxine (T4) free [Mass/volume] in Serum or Plasma 1.56 ng/dL 0.93- 1.70 [facility] ID Date Data Source [id number] 07/14/2019 06:45:24 PM [facility] Value Range Interpretation Code Description Data Hedy rce(s) Supporting Document(s) Albumin [Mass/volume] in Serum or Plasma by Bromocresol green (BCG) dye binding method 3.8 g/dL 3.5-5.2 [facility] Bilirubin.total [Mass/volume] in Serum or Plasma 0.4 mg/dL <1.2 [facility] Calcium [Mass/volume] in Serum or Plasma 8.6 mg/dL 8.6-10.0 [facility] Chloride [Moles/volume] in Serum or Plasma 99 mmol/L 98-107 [facility] Creatinine [Mass/volume] in Serum or Plasma 0.98 mg/dL 0.70-1.20 [facility] Glucose [Mass/volume] in Serum or Plasma 143 mg/dL 70-140 H [facility] Alkaline phosphatase [Enzymatic activity/volume] in Serum or Plasma 64 U/L 40-129 [facility] Potassium [Moles/volume] in Serum or Plasma 5.0 mmol/L 3.4-5.1 [facility] Protein [Mass/volume] in Serum or Plasma 6.8 g/dL 6.4-8.3 [facility] Sodium [Moles/volume] in Serum or Plasma 133 mmol/L 136-145 L [facility] Aspartate aminotransferase [Enzymatic activity/volume] in Serum or Plasma 26 U/L <40 [facility] Hemolyzed Urea nitrogen [Mass/volume] in Serum or Plasma 7 mg/dL 6-20 [facility] Osmolality of Serum or Plasma by calculation 276 mosm/kg 275-300 [facility] Creatinine/Urea nitrogen [Mass Ratio] in Serum or Plasma 7 [facility] Bicarbonate [Moles/volume] in Serum 24 mmol/L 22-29 [facility] Alanine aminotransferase [Enzymatic activity/volume] in Seru m or Plasma 23 U/L <41 [facility] Anion gap 3 in Serum or Plasma 10 mmol/L 8-15 [facility] Albumin/Globulin [Mass Ratio] in Serum or Plasma 1.3 [facility] Glomerular filtration rate/1.73 sq M pre dicted among non-blacks [Volume Rate/Area] in Serum or Plasma by Creatinine-based formula (MDRD) >6 0 [facility] Glomerular filtration rate/1.73 sq M pre dicted among blacks [Volume Rate/Area] in Serum or Plasma by Creatinine-based formula (MDRD) >60 [facility] ID Date Data Source [id number] 07/14/2019 06:45:24 PM [facility] Name Value Range Interpretation Code Description Data Hedy rce(s) Supporting Document(s) Salicylates [Mass/volume] in Serum or Plasma 3.0-30.0 L [facility] ID Date Data Source [id number] 07/14/2019 06:45:24 PM [facility] Value Range Interpretation Code Description Data Hedy rce(s) Supporting Document(s) Thyrotropin [Units/volume] in Serum or Plasma 0.352 u[IU]/mL 0.270-4. 200 [facility] ID Date Data Source [id number] 07/14/2019 05:51:46 PM [facility] Name Value Range Interpretation Code Description Data Hedy rce(s) Supporting Document(s) Sodium [Moles/volume] in Blood 135 mmol/L 136-145 L [facility] Potassium [Moles/volume] in Blood 5.0 mmol/L 3.4-5.1 [facility] Chloride [Moles/volume] in Blood 98 mmol/L 98-107 [facility] Carbon dioxide, total [Moles/volume] in Blood 31 mmol/L 22-29 H [facility] Calcium.ionized [Moles/volume] in Blood 1.20 mmol/L 1.13-1.32 [facility] Glucose [Mass/volume] in Blood 146 mg/dL 70-140 H [facility] Urea nitrogen [Mass/volume] in Blood 7 mg/dL 6-20 [facility] Creatinine [Mass/volume] in Blood 1.0 mg/dL 0.70-1.20 [facility] Hematocrit [Volume Fraction] of Blood 37 % 41-53 L [facility] Hemoglobin [Mass/volume] in Blood by calculation 12.6 g/dL 13.5-18.0 [facility] ID Date Data Source [id number] 07/14/2019 05:51:41 PM [facility] Value Range Interpretation Code Description Data Hedy rce(s) Supporting Document(s) pH of Venous blood 7.38 7.36-7.41 [facility] Carbon dioxide [Partial pressure] in Venous blood 51 mmHg 40-45 H [facility] Oxygen [Partial pressure] in Venous blood 24 mmHg [facility] Base excess standard in Venous blood by calculation 4 mmol/L [facility] Oxygen saturation Calculated from oxygen partial pressure in Venous blood 41 % 60-85 [facility] Lactate [Moles/volume] in Venous blood 1.0 mmol/L 0.5-2.2 [facility] Bicarbonate [Moles/volume] in Venous blood 32 mmol/L [facility] ID Date Data Source [id number] 07/14/2019 05:51:49 PM [facility] Value Range Interpretation Code Description Data Hedy rce(s) Supporting Document(s) Troponin I.cardiac [Mass/volume] in Blood 0.00 ng/mL 0.00-0.08 [facility] ID Date Data Source [id number] 06/28/2019 06:10:00 AM [facility] Value Range Interpretation Code Description Data Hedy rce(s) Supporting Document(s) LAB Glucose,Fingerstick 117 mg/dL 70-110 Above high normal [facility] ID Date Data Source [id number] 06/27/2019 06:42:00 AM [facility] Value Range Interpretation Code Description Data Hedy rce(s) Supporting Document(s) LAB Glucose,Fingerstick 138 mg/dL 70-110 Above high normal [facility] ID Date Data Source [id number] 06/26/2019 04:47:00 AM [facility] Value Range Interpretation Code Description Data Hedy rce(s) Supporting Document(s) LAB Glucose,Fingerstick 137 mg/dL 70-110 Above high normal [facility] ID Date Data Source [id number] 06/25/2019 05:08:00 AM [facility] Value Range Interpretation Code Description Data Hedy rce(s) Supporting Document(s) LAB Glucose,Fingerstick 149 mg/dL 70-110 Above high normal [facility] ID Date Data Source [id number] 06/24/2019 06:56:00 AM [facility] Value Range Interpretation Code Description Data Hedy rce(s) Supporting Document(s) LAB Glucose,Fingerstick 122 mg/dL 70-110 Above high normal [facility] ID Date Data Source [id number] 06/23/2019 07:23:00 AM [facility] Value Range Interpretation Code Description Data Hedy rce(s) Supporting Document(s) LAB Glucose,Fingerstick 119 mg/dL 70-110 Above high normal [facility] ID Date Data Source [id number] 06/22/2019 07:07:00 AM [facility] Value Range Interpretation Code Description Data Hedy rce(s) Supporting Document(s) LAB Glucose,Fingerstick 105 mg/dL 70-110 Normal ( applies to non-numeric results) [facility] ID Date Data Source [id number] 06/21/2019 07:10:00 AM [facility] Name Value Range Interpretation Code Description Data Hedy rce(s) Supporting Document(s) LAB Glucose,Fingerstick 109 mg/dL 70-110 Normal ( applies to non-numeric results) [facility] ID Date Data Source [id number] 06/20/2019 07:05:00 AM [facility] Value Range Interpretation Code Description Data Hedy rce(s) Supporting Document(s) LAB Glucose,Fingerstick 106 mg/dL 70-110 Normal ( applies to non-numeric results) [facility] ID Date Data Source [id number] 06/19/2019 07:29:00 AM [facility] Value Range Interpretation Code Description Data Hedy rce(s) Supporting Document(s) LAB Glucose,Fingerstick 111 mg/dL 70-110 Above high normal [facility] ID Date Data Source [id number] 06/18/2019 07:07:00 AM [facility] Value Range Interpretation Code Description Data Hedy rce(s) Supporting Document(s) LAB Glucose,Fingerstick 126 mg/dL 70-110 Above high normal [facility] ID Date Data Source [id number] 06/17/2019 06:47:00 AM [facility] Name Value Range Interpretation Code Description Data Hedy rce(s) Supporting Document(s) LAB Glucose,Fingerstick 106 mg/dL 70-110 Normal ( applies to non-numeric results) [facility] ID Date Data Source [id number] 06/16/2019 10:43:00 AM [facility] Value Range Interpretation Code Description Data Hedy rce(s) Supporting Document(s) C-Reactive Protein,Wide Range <3.00 Above high normal [facility] ID Date Data Source [id number] 06/16/2019 10:29:00 AM [facility] Value Range Interpretation Code Description Data Hedy rce(s) Supporting Document(s) White Blood Count 4.8-10.8 Normal (applies to non-numeri c results) [facility] Red Blood Count 4.35-6.08 Below low normal [facility] Hemoglobin 13.0-17.5 Below low normal [facility] Hematocrit 37.7-51.0 Below low normal [facility] Mean Corpuscular Volume 80-94 Normal (applies to non- numeric results) [facility] Mean Corpuscular Hemoglobin 27.0-33.0 Normal (appli es to non-numeric results) [facility] Mean Corpuscular HGB Conc 32.0-36.0 Normal (applies to no n-numeric results) [facility] Red Cell Distribution Width 11.5-14.5 Normal (appli es to non-numeric results) [facility] Platelet Count 206 X10 3/uL 130-450 Normal (applies to non-numeric results) [facility] Mean Platelet Volume 9.6-13.1 Below low normal [facility] Imm Grans% (AUTO) 0 % 0-2 Normal (applies to non-numeri c results) [facility] Neutrophils % (AUTO) 35 % 40-75 Below low normal [facility] Lymphocytes % (AUTO) 52 % 21-46 Above high normal [facility] Monocytes % (AUTO) 8 % 5-12 Normal (applies to non-numer ic results) [facility] Eosinophils % (AUTO) 4 % 1-5 Normal (applies to non-num jean-claude results) [facility] Basophils % (AUTO) 1 % 0-1 Normal (applies to non-numer ic results) [facility] Imm Grans# (AUTO) 0.00-0.50 Normal (applies to non-numeri c results) [facility] Neutrophils # (AUTO) 1.5-8.1 Normal (applies to non-num jean-claude results) [facility] Lymphocytes # (AUTO) 1.0-3.1 Normal (applies to non-num jean-claude results) [facility] Monocytes # (AUTO) 0.2-1.3 Normal (applies to non-numer ic results) [facility] Eosinophils# (AUTO) 0.0-0.5 Normal (applies to non-nume aline results) [facility] Basophils # (AUTO) 0.00-0.10 Normal (applies to non-numer ic results) [facility] ID Date Data Source [id number] 06/16/2019 07:08:00 AM [facility] Value Range Interpretation Code Description Data Hedy rce(s) Supporting Document(s) LAB Glucose,Fingerstick 95 mg/dL 70-110 Normal (applies t o non-numeric results) [facility] ID Date Data Source [id number] 06/15/2019 07:11:00 AM [facility] Value Range Interpretation Code Description Data Hedy rce(s) Supporting Document(s) LAB Glucose,Fingerstick 96 mg/dL 70-110 Normal (applies t o non-numeric results) [facility] ID Date Data Source [id number] 06/14/2019 06:50:00 AM [facility] Value Range Interpretation Code Description Data Hedy rce(s) Supporting Document(s) LAB Glucose,Fingerstick 114 mg/dL 70-110 Above high normal [facility] ID Date Data Source [id number] 06/13/2019 05:32:00 AM [facility] Value Range Interpretation Code Description Data Hedy rce(s) Supporting Document(s) LAB Glucose,Fingerstick 126 mg/dL 70-110 Above high normal [facility] ID Date Data Source [id number] 06/12/2019 05:44:00 AM [facility] Value Range Interpretation Code Description Data Hedy rce(s) Supporting Document(s) LAB Glucose,Fingerstick 105 mg/dL 70-110 Normal ( applies to non-numeric results) [facility] ID Date Data Source [id number] 06/11/2019 07:30:00 AM [facility] Value Range Interpretation Code Description Data Hedy rce(s) Supporting Document(s) LAB Glucose,Fingerstick 102 mg/dL 70-110 Normal ( applies to non-numeric results) [facility] ID Date Data Source [id number] 06/10/2019 07:34:00 AM [facility] Value Range Interpretation Code Description Data Hedy rce(s) Supporting Document(s) LAB Glucose,Fingerstick 115 mg/dL 70-110 Above high normal [facility] ID Date Data Source [id number] 06/09/2019 07:12:00 AM [facility] Value Range Interpretation Code Description Data Hedy rce(s) Supporting Document(s) LAB Glucose,Fingerstick 118 mg/dL 70-110 Above high normal [facility] ID Date Data Source [id number] 06/08/2019 07:12:00 AM [facility] Value Range Interpretation Code Description Data Hedy rce(s) Supporting Document(s) LAB Glucose,Fingerstick 100 mg/dL 70-110 Normal ( applies to non-numeric results) [facility] ID Date Data Source [id number] 06/07/2019 06:57:00 AM [facility] Value Range Interpretation Code Description Data Hedy rce(s) Supporting Document(s) LAB Glucose,Fingerstick 133 mg/dL 70-110 Above high normal [facility] ID Date Data Source [id number] 06/06/2019 05:03:00 PM [facility] Value Range Interpretation Code Description Data Hedy rce(s) Supporting Document(s) LAB Glucose,Fingerstick 110 mg/dL 70-110 Normal ( applies to non-numeric results) [facility] ID Date Data Source [id number] 06/06/2019 07:08:00 AM [facility] Value Range Interpretation Code Description Data Hedy rce(s) Supporting Document(s) LAB Glucose,Fingerstick 111 mg/dL 70-110 Above high normal [facility] ID Date Data Source [id number] 06/05/2019 04:39:00 PM [facility] Value Range Interpretation Code Description Data Hdey rce(s) Supporting Document(s) LAB Glucose,Fingerstick 160 mg/dL 70-110 Above high normal [facility] ID Date Data Source [id number] 06/05/2019 06:56:00 AM [facility] Value Range Interpretation Code Description Data Hedy rce(s) Supporting Document(s) LAB Glucose,Fingerstick 104 mg/dL 70-110 Normal ( applies to non-numeric results) [facility] ID Date Data Source [id number] 06/04/2019 07:32:00 AM [facility] Value Range Interpretation Code Description Data Hedy rce(s) Supporting Document(s) LAB Glucose,Fingerstick 110 mg/dL 70-110 Normal ( applies to non-numeric results) [facility] ID Date Data Source [id number] 06/03/2019 06:58:00 AM [facility] Value Range Interpretation Code Description Data Hedy rce(s) Supporting Document(s) LAB Glucose,Fingerstick 119 mg/dL 70-110 Above high normal [facility] ID Date Data Source [id number] 06/02/2019 04:42:00 PM [facility] Value Range Interpretation Code Description Data Hedy rce(s) Supporting Document(s) LAB Glucose,Fingerstick 130 mg/dL 70-110 Above high normal [facility] ID Date Data Source [id number] 06/02/2019 07:01:00 AM [facility] Value Range Interpretation Code Description Data Hedy rce(s) Supporting Document(s) LAB Glucose,Fingerstick 114 mg/dL 70-110 Above high normal [facility] ID Date Data Source [id number] 06/03/2019 02:50:00 PM [facility] Hospital Name: AKBAR FLORES : 1965 Age/Sex: 54M Ordering Provider: Yulia LAMB [facility] Rec #: [id number] Reg Status:ADM IN Room #: 130-2 Date of Service: 06/02/19 Report Number: [id number] cc: Yulia LAMB; Deneen Rosario MD Send Report To: Reason for exam: heart failure SINUS RHYTHM NORMAL ECG Physician Escrow Secretary: Dr. Anthony Guallpa M.D. ECG HEART RATE: 82 /min ECG RR INTERVAL: 731 ms ECG P DURATION: 110 ms ECG QRS DURATION: 82 ms ECG WV INTERVAL: 165 ms ECG QT INTERVAL: 356 ms ECG QTC INTERVAL: 394 ms Q-T dispersion: ms ECG P AXIS: 37 deg ECG QRS AXIS: 15 deg ECG T AXIS: 30 deg REPORT SIGNATURE ON FILE 06/03/191449 Reported By: Anthony Guallpa MD <<Signature on File>> Exam Date/Time: 06/02/19805 Order #: [id number] Dictation Date/Time: 06/03/191449 Transcribed Date/Time: 06/03/191449 Research Physiologist: GURDEEP Name Value Range Interpretation Code Description Data Hedy rce(s) Supporting Document(s) ID Date Data Source [id number] 06/01/2019 05:44:00 PM [facility] Name Value Range Interpretation Code Description Data Hedy rce(s) Supporting Document(s) LAB Glucose,Fingerstick 241 mg/dL 70-110 Above high normal [facility] ID Date Data Source [id number] 06/02/2019 04:48:00 PM [facility] Name Value Range Interpretation Code Description Data Hedy rce(s) Supporting Document(s) Hepatitis A Ab,IgM result Negative Normal (applies to no n-numeric results) [facility] Result does not exclude the possibility of exposure to hepatitis A virus. Antibody level during early infection stage may be below the limit of detection of the assay. Test Performed by: [facility] [address] [place] [address] Food Sales Clerk: Curt Weber M.D. Ph.D.; CLIA# [id number] ID Date Data Source [id number] 06/01/2019 12:59:00 PM [facility] Name Value Range Interpretation Code Description Data Hedy rce(s) Supporting Document(s) Sodium 140 mmol/L 137-145 Normal (applies to non-numeric resul ts) [facility] Potassium 3.5-5.1 Normal (applies to non-numeric resul ts) [facility] Chloride 106 mmol/L 98-112 Normal (applies to non-numeric resul ts) [facility] Carbon Dioxide CO2 22.0-33.0 Normal (applies to non-numer ic results) [facility] Anion Gap 4.0-11.0 Normal (applies to non-numeric resul ts) [facility] BUN 8 mg/dL 9-20 Below low normal [facility] Creatinine 0.80-1.50 Normal (applies to non-numeric resul ts) [facility] GFR 77 mL/min >60 Normal (applies to non-numeric resul ts) [facility] Result based on MDRD formula. Glucose Level 116 mg/dL 74-99 Above high normal [facility] The reference range is only applicable w hen fasting. Calcium-Uncorrected 8.4-10.2 Normal (applies to non-nume aline results) [facility] Corrected Calcium 8.4-10.2 Normal (applies to non-numeri c results) [facility] Bilirubin,Total 0.2-1.3 Normal (applies to non-numeric results) [facility] Bilirubin,Direct 0.0-0.3 Normal (applies to non-numeric results) [facility] SGOT(AST) 13 U/L 17-59 Below low normal [facility] SGPT(ALT) 21 U/L 21-72 Normal (applies to non-numeric resul ts) [facility] Alkaline Phosphatase 86 U/L 38-126 Normal (applies to non-num jean-claude results) [facility] can increase Alkaline Phosp le vels up to 2 times the normal adult value. Normal values for children and adolescents are 2 to 3 times the normal adult value. CPK 207 U/L 39-308 Normal (applies to non-numeric resul ts) [facility] Total Protein 6.3-8.2 Normal (applies to non-numeric re sults) [facility] Albumin 3.5-5.0 Normal (applies to non-numeric resul ts) [facility] Thyroid Stimulate Hormone TSH 0.358-3.740 No rmal (applies to non-numeric results) [facility] ID Date Data Source [id number] 06/01/2019 12:59:00 PM EST [facility] Name Value Range Interpretation Code Description Data Hedy rce(s) Supporting Document(s) Magnesium 1.80-2.40 Normal (applies to non-numeric resul ts) [facility] ID Date Data Source [id number] 06/01/2019 12:59:00 PM EST [facility] Name Value Range Interpretation Code Description Data Hedy rce(s) Supporting Document(s) C-Reactive Protein,Wide Range <3.00 Above high normal [facility] ID Date Data Source [id number] 06/01/2019 12:06:00 PM EST [facility] Name Value Range Interpretation Code Description Data Hedy rce(s) Supporting Document(s) White Blood Count 4.8-10.8 Normal (applies to non-numeri c results) [facility] Red Blood Count 4.35-6.08 Below low normal [facility] Hemoglobin 13.0-17.5 Below low normal [facility] Hematocrit 37.7-51.0 Below low normal [facility] Mean Corpuscular Volume 80-94 Below low normal [facility] Mean Corpuscular Hemoglobin 27.0-33.0 Normal (appli es to non-numeric results) [facility] Mean Corpuscular HGB Conc 32.0-36.0 Normal (applies to no n-numeric results) [facility] Red Cell Distribution Width 11.5-14.5 Normal (appli es to non-numeric results) [facility] Platelet Count 226 X10 3/uL 130-450 Normal (applies to non-numeric results) [facility] Mean Platelet Volume 9.6-13.1 Below low normal [facility] Imm Grans% (AUTO) 0.0-2.0 Normal (applies to non-numeri c results) [facility] Neutrophils % (AUTO) 43.0-75.0 Normal (applies to non-num jean-claude results) [facility] Lymphocytes % (AUTO) 20.5-45.5 Normal (applies to non-num jean-claude results) [facility] Monocytes % (AUTO) 5.5-11.7 Normal (applies to non-numer ic results) [facility] Eosinophils % (AUTO) 0.7-4.6 Normal (applies to non-num jean-claude results) [facility] Basophils % (AUTO) 0.2-1.2 Normal (applies to non-numer ic results) [facility] Imm Grans# (AUTO) 0.00-0.50 Normal (applies to non-numeri c results) [facility] Neutrophils # (AUTO) 1.90-7.00 Normal (applies to non-num jean-claude results) [facility] Lymphocytes # (AUTO) 1.30-3.10 Above high normal [facility] Monocytes # (AUTO) 0.40-0.70 Normal (applies to non-numer ic results) [facility] Eosinophils# (AUTO) 0.00-0.30 Above high normal [facility] Basophils # (AUTO) 0.00-0.10 Normal (applies to non-numer ic results) [facility] ID Date Data Source [id number] 06/01/2019 08:47:00 AM [facility] Name Value Range Interpretation Code Description Data Hedy rce(s) Supporting Document(s) LAB Glucose,Fingerstick 105 mg/dL 70-110 Normal ( applies to non-numeric results) [facility] ID Date Data Source [id number] 06/01/2019 12:08:00 PM [facility] Hospital Name: AKBAR FLORES : 1965 Age/Sex: 54M Ordering Provider: Yulia LAMB Med Rec #: [id number] Reg Status: ADM IN Room #: 124-2 Date of Service: 06/01/19 Report Number: [id number] cc:Yulia LAMB; PCP None Send Report To: [id number] XRP/XR Chest 2 View [Pa & Lat] [...] Date/Time: 06/01/19 1030 Transcribed Date/Time: 06/01/19 1208 Research Physiologist: MARGARET Name Value Range Interpretation Code Description Data Hedy rce(s) Supporting Document(s) ID Date Data Source [id number] 06/08/2019 11:23:00 AM [facility] Name Value Range Interpretation Code Description Data Hedy rce(s) Supporting Document(s) Cannabinoids Confirm,Ur result . Very abnor mal (applies to non-numeric units [facility] Carboxy THC GC/MS Conf 14 ng/mL Cutoff=10 01 Performed at: [facility] [address] [place], [place] [id number] Food Sales Clerk: Aide Red MD, Phone: [phone] ID Date Data Source [id number] 05/31/2019 10:49:00 AM [facility] Name Value Range Interpretation Code Description Data Hedy rce(s) Supporting Document(s) Color,Urine Yellow Normal (applies to non-numeric resu lts) [facility] Clarity,Urine Clear Normal (applies to non-numeric re sults) [facility] Specific [place],Urine 1.001-1.030 Normal (applies to non- numeric results) [facility] PH,Urine 5.0-8.0 Normal (applies to non-numeric resul ts) [facility] Protein,Urine Negative Normal (applies to non-numeric re sults) [facility] Glucose,Urine (UA) Negative Normal (applies to non-numer ic results) [facility] Ketones,Urine Negative Normal (applies to non-numeric re sults) [facility] Blood,Urine Negative Normal (applies to non-numeric resu lts) [facility] Bilirubin,Urine Negative Normal (applies to non-numeric results) [facility] Urobilinogen,Urine Norm 0.2-1 Normal (applies to non-numer ic results) [facility] Leukocyte Esterase,Urine Negative Normal (applies to non -numeric results) [facility] Nitrite,Urine Negative Normal (applies to non-numeric re sults) [facility] ID Date Data Source [id number] 05/31/2019 11:06:00 AM EST [facility] Name Value Range Interpretation Code Description Data Hedy rce(s) Supporting Document(s) Opiate Screen,Urine Negative Normal (applies to non-nume aline results) [facility] Amphetamine Screen,Urine Negative [facility] If a positive quantitative confirmation is desired, an additional order must be submitted and the specimen will be sent out to a reference lab. Benzodiazepines Scrn,Ur result Negative N ormal (applies to non-numeric results) [facility] Cocaine Screen,Urine Negative [facility] If a positive quantitative confirmation is desired, an additional order must be submitted and the specimen will be sent out to a reference lab. Methadone Screen,Urine Negative Normal (applies to non-n umeric results) [facility] Cannabinoid Screen, Ur Negative [facility] If a positive quantitative confirmation is desired, [...] Value Status Description Data Source(s ) Smoking 07/16/2020 12:00:00 AM EST Unknown if ever smoked comp leted [facility] Smoking 06/25/2020 12:00:00 AM EST Unknown if ever smoked comp leted Unknown if ever smoked [facility] ([facility]) Smoking 06/19/2020 12:00:00 AM EST Unknown if ever smoked comp leted Unknown if ever smoked [facility] ([facility]) Smoking 06/05/2020 12:00:00 AM EST Unknown if ever smoked comp leted Unknown if ever smoked [facility] ([facility]) Smoking 05/09/2020 12:00:00 AM EST Unknown if ever smoked comp leted Unknown if ever smoked [facility] ([facility]) Smoking 07/20/2019 12:00:00 AM EST Unknown if ever smoked comp leted Unknown if ever smoked [facility] ([facility]) Alcohol intake 07/15/2019 12:00:00 AM EST Current drinker of al cohol (finding) completed Current drinker of alcohol (finding) [facility] Smoking 07/15/2019 12:00:00 AM EST Former smoker completed Former smoker [facility] Alcohol intake 07/15/2019 12:00:00 AM EST Current drinker of al cohol (finding) completed Current drinker of alcohol (finding) [facility] Smoking 07/01/2019 12:00:00 AM EST Unknown if ever smoked comp leted Unknown if ever smoked [facility] ([facility]) Smoking 06/10/2019 12:00:00 AM EST Unknown if ever smoked comp leted Unknown if ever smoked [facility] ([facility]) Smoking 05/31/2019 12:00:00 AM EST Unknown if ever smoked comp leted Unknown if ever smoked [facility] ([facility]) Vital Signs ID Date Data Source UNK Name Value Range Interpretation Code Description Data Source(s) Diastolic blood pressure 0 mm[Hg] Normal (applies to non-numeric results) 0 mm[Hg] [facility] ([facility]) Systolic blood pressure 0 mm[Hg] Normal (applies t o non-numeric results) 0 mm[Hg] [facility] ([facility]) Body mass index (BMI) [Ratio] 0.00 kg/m2 No rmal (applies to non-numeric results) 0.00 kg/m2 [facility] ([facility]) Body weight Measured 0.00 lbs Normal (applies to n on-numeric results) 0.00 lbs [facility] ([facility]) Body height 0.00 in Normal (applies to non-numeric resu lts) 0.00 in [facility] ([facility]) Body weight 4979.2 [oz_av] 4979.2 [oz_av] ATHEN A ([facility]) Systolic blood pressure 136 mm[Hg] 136 mm[Hg] A THENA ([facility]) Body mass index (BMI) [Ratio] 40 kg/m2 40 kg/ m2 MARQUIS ([facility]) Body height 74 [in_i] 74 [in_i] MARQUIS ([facility]) Diastolic blood pressure 92 mm[Hg] 92 mm[Hg] MARQUIS ([facility]) ID Date Data Source [id number] 07/06/2020 11:01:00 AM [facility] Hospital Name Value Range Interpretation Code Description Data Source(s) Weight (Calculated Kilograms) 122.47 122.47 [facility] Height (Calculated Centimeters) 187.96 187. 96 [facility] Body Mass Index (BMI) 34.7 34.7 [facility] Weight (Calculated Kilograms) 122.47 122.47 [facility] Height (Calculated Centimeters) 187.96 187. 96 [facility] Body Mass Index (BMI) 34.7 34.7 [facility] ID Date Data Source [id number] 07/06/2020 11:01:00 AM [facility] Name Value Range Interpretation Code Description Data Source(s) Weight (Calculated Kilograms) 122.47 122.47 [facility] Height (Calculated Centimeters) 187.96 187. 96 [facility] Body Mass Index (BMI) 34.7 34.7 [facility] Weight (Calculated Kilograms) 122.47 122.47 [facility] Height (Calculated Centimeters) 187.96 187. 96 [facility] Body Mass Index (BMI) 34.7 34.7 [facility] ID Date Data Source [id number] 07/06/2020 11:01:00 AM [facility] Name Value Range Interpretation Code Description Data Source(s) Weight (Calculated Kilograms) 122.47 122.47 [facility] Height (Calculated Centimeters) 187.96 187. 96 [facility] Body Mass Index (BMI) 34.7 34.7 [facility] Weight (Calculated Kilograms) 122.47 122.47 [facility] Height (Calculated Centimeters) 187.96 187. 96 [facility] Body Mass Index (BMI) 34.7 34.7 [facility] ID Date Data Source [id number] 07/06/2020 11:22:00 AM [facility] Name Value Range Interpretation Code Description Data Source(s) Weight (Calculated Kilograms) 122.47 122.47 [facility] Height (Calculated Centimeters) 187.96 187. 96 [facility] Body Mass Index (BMI) 34.7 34.7 [facility] Weight (Calculated Kilograms) 122.47 122.47 [facility] Height (Calculated Centimeters) 187.96 187. 96 [facility] Body Mass Index (BMI) 34.7 34.7 [facility] Weight (Calculated Kilograms) 122.47 122.47 [facility] Height (Calculated Centimeters) 187.96 187. 96 [facility] Body Mass Index (BMI) 34.7 34.7 [facility] ID Date Data Source [id number] 07/20/2020 10:33:00 AM [facility] Name Value Range Interpretation Code Description Data Source(s) Weight (Calculated Kilograms) 122.47 122.47 [facility] Height (Calculated Centimeters) 187.96 187. 96 [facility] Body Mass Index (BMI) 34.7 34.7 [facility] Weight (Calculated Kilograms) 122.47 122.47 [facility] Height (Calculated Centimeters) 187.96 187. 96 [facility] Body Mass Index (BMI) 34.7 34.7 [facility] Weight (Calculated Kilograms) 122.47 122.47 [facility] Height (Calculated Centimeters) 187.96 187. 96 [facility] Body Mass Index (BMI) 34.7 34.7 [facility] Weight (Calculated Kilograms) 122.47 122.47 [facility] Height (Calculated Centimeters) 187.96 187. 96 [facility] Body Mass Index (BMI) 34.7 34.7 [facility] ID Date Data Source [id number] 07/20/2020 10:33:00 AM [facility] Name Value Range Interpretation Code Description Data Source(s) Weight (Calculated Kilograms) 122.47 122.47 [facility] Height (Calculated Centimeters) 187.96 187. 96 [facility] Body Mass Index (BMI) 34.7 34.7 [facility] ID Date Data Source [id number] 07/06/2020 11:01:00 AM [facility] Name Value Range Interpretation Code Description Data Source(s) Weight (Calculated Kilograms) 122.47 122.47 [facility] Height (Calculated Centimeters) 187.96 187. 96 [facility] Body Mass Index (BMI) 34.7 34.7 [facility] Weight (Calculated Kilograms) 122.47 122.47 [facility] Height (Calculated Centimeters) 187.96 187. 96 [facility] Body Mass Index (BMI) 34.7 34.7 [facility] Weight (Calculated Kilograms) 122.47 122.47 [facility] Height (Calculated Centimeters) 187.96 187. 96 [facility] Body Mass Index (BMI) 34.7 34.7 [facility] Weight (Calculated Kilograms) 122.47 122.47 [facility] Height (Calculated Centimeters) 187.96 187. 96 [facility] Body Mass Index (BMI) 34.7 34.7 [facility] Hospital ID Date Data Source [id number] 07/06/2020 11:01:00 AM [facility] Name Value Range Interpretation Code Description Data Source(s) Weight (Calculated Kilograms) 122.47 122.47 [facility] Height (Calculated Centimeters) 187.96 187. 96 [facility] Body Mass Index (BMI) 34.7 34.7 [facility] Weight (Calculated Kilograms) 122.47 122.47 [facility] Height (Calculated Centimeters) 187.96 187. 96 [facility] Body Mass Index (BMI) 34.7 34.7 [facility] ID Date Data Source [id number] 07/06/2020 11:01:00 AM EST [facility] Hospital Name Value Range Interpretation Code Description Data Source(s) Weight (Calculated Kilograms) 122.47 122.47 [facility] Height (Calculated Centimeters) 187.96 187. 96 [facility] Body Mass Index (BMI) 34.7 34.7 [facility] Weight (Calculated Kilograms) 122.47 122.47 [facility] Height (Calculated Centimeters) 187.96 187. 96 [facility] Body Mass Index (BMI) 34.7 34.7 [facility] ID Date Data Source [id number] 03/07/2020 12:21:00 AM EDT [facility] Hospital Name Value Range Interpretation Code Description Data Source(s) Weight (Calculated Kilograms) 122.47 122.47 [facility] Height (Calculated Centimeters) 187.96 187. 96 [facility] Body Mass Index (BMI) 34.7 34.7 [facility] Weight (Calculated Kilograms) 122.47 122.47 [facility] Height (Calculated Centimeters) 187.96 187. 96 [facility] Body Mass Index (BMI) 34.7 34.7 [facility] ID Date Data Source [id number] 02/29/2020 12:34:00 AM EDT [facility] Hospital Name Value Range Interpretation Code Description Data Source(s) Weight (Calculated Kilograms) 122.47 122.47 [facility] Height (Calculated Centimeters) 187.96 187. 96 [facility] Body Mass Index (BMI) 34.7 34.7 [facility] Weight (Calculated Kilograms) 122.47 122.47 [facility] Height (Calculated Centimeters) 187.96 187. 96 [facility] Body Mass Index (BMI) 34.7 34.7 [facility] ID Date Data Source [id number] 02/28/2020 12:26:00 AM EDT [facility] Hospital Name Value Range Interpretation Code Description Data Source(s) Weight (Calculated Kilograms) 122.47 122.47 [facility] Height (Calculated Centimeters) 187.96 187. 96 [facility] Body Mass Index (BMI) 34.7 34.7 [facility] Weight (Calculated Kilograms) 122.47 122.47 [facility] Height (Calculated Centimeters) 187.96 187. 96 [facility] Body Mass Index (BMI) 34.7 34.7 [facility] ID Date Data Source [id number] 02/28/2020 06:07:00 AM EDT [facility] Hospital Name Value Range Interpretation Code Description Data Source(s) Weight (Calculated Kilograms) 122.47 122.47 [facility] Height (Calculated Centimeters) 187.96 187. 96 [facility] Body Mass Index (BMI) 34.7 34.7 [facility] Weight (Calculated Kilograms) 122.47 122.47 [facility] Height (Calculated Centimeters) 187.96 187. 96 [facility] Body Mass Index (BMI) 34.7 34.7 [facility] Weight (Calculated Kilograms) 122.47 122.47 [facility] Height (Calculated Centimeters) 187.96 187. 96 [facility] Body Mass Index (BMI) 34.7 34.7 [facility] Weight (Calculated Kilograms) 122.47 122.47 [facility] Height (Calculated Centimeters) 187.96 187. 96 [facility] Body Mass Index (BMI) 34.7 34.7 [facility] ID Date Data Source [id number] 01/25/2020 11:18:00 AM EDT [facility] Hospital Name Value Range Interpretation Code Description Data Source(s) Weight (Calculated Kilograms) 122.47 122.47 [facility] Height (Calculated Centimeters) 187.96 187. 96 [facility] Body Mass Index (BMI) 34.7 34.7 [facility] Weight (Calculated Kilograms) 122.47 122.47 [facility] Height (Calculated Centimeters) 187.96 187. 96 [facility] Body Mass Index (BMI) 34.7 34.7 [facility] Weight (Calculated Kilograms) 122.47 122.47 [facility] Height (Calculated Centimeters) 187.96 187. 96 [facility] Body Mass Index (BMI) 34.7 34.7 [facility] Weight (Calculated Kilograms) 122.47 122.47 [facility] Height (Calculated Centimeters) 187.96 187. 96 [facility] Body Mass Index (BMI) 34.7 34.7 [facility] ID Date Data Source [id number] 01/10/2020 12:25:00 AM EDT [facility] Hospital Name Value Range Interpretation Code Description Data Source(s) Weight (Calculated Kilograms) 122.47 122.47 [facility] Height (Calculated Centimeters) 187.96 187. 96 [facility] Body Mass Index (BMI) 34.7 34.7 [facility] Weight (Calculated Kilograms) 122.47 122.47 [facility] Height (Calculated Centimeters) 187.96 187. 96 [facility] Body Mass Index (BMI) 34.7 34.7 [facility] ID Date Data Source [id number] 12/28/2019 12:31:00 AM EDT [facility] Hospital Name Value Range Interpretation Code Description Data Source(s) Weight (Calculated Kilograms) 122.47 122.47 [facility] Height (Calculated Centimeters) 187.96 187. 96 [facility] Body Mass Index (BMI) 34.7 34.7 [facility] Weight (Calculated Kilograms) 122.47 122.47 [facility] Height (Calculated Centimeters) 187.96 187. 96 [facility] Body Mass Index (BMI) 34.7 34.7 [facility] ID Date Data Source [id number] 12/29/2019 02:16:00 PM EDT [facility] Name Value Range Interpretation Code Description Data Source(s) Weight (Calculated Kilograms) 122.47 122.47 [facility] Height (Calculated Centimeters) 187.96 187. 96 [facility] Body Mass Index (BMI) 34.7 34.7 [facility] Weight (Calculated Kilograms) 122.47 122.47 [facility] Height (Calculated Centimeters) 187.96 187. 96 [facility] Body Mass Index (BMI) 34.7 34.7 [facility] Weight (Calculated Kilograms) 122.47 122.47 [facility] Height (Calculated Centimeters) 187.96 187. 96 [facility] Body Mass Index (BMI) 34.7 34.7 [facility] ID Date Data Source [id number] 12/21/2019 12:54:00 PM EDT [facility] Name Value Range Interpretation Code Description Data Source(s) Weight (Calculated Kilograms) 122.47 122.47 [facility] Height (Calculated Centimeters) 187.96 187. 96 [facility] Body Mass Index (BMI) 34.7 34.7 [facility] Weight (Calculated Kilograms) 122.47 122.47 [facility] Height (Calculated Centimeters) 187.96 187. 96 [facility] Body Mass Index (BMI) 34.7 34.7 [facility] Weight (Calculated Kilograms) 122.47 122.47 [facility] Height (Calculated Centimeters) 187.96 187. 96 [facility] Body Mass Index (BMI) 34.7 34.7 [facility] ID Date Data Source [id number] 12/21/2019 10:24:00 AM EDT [facility] Name Value Range Interpretation Code Description Data Source(s) Weight (Calculated Kilograms) 122.47 122.47 [facility] Height (Calculated Centimeters) 187.96 187. 96 [facility] Body Mass Index (BMI) 34.7 34.7 [facility] Weight (Calculated Kilograms) 122.47 122.47 [facility] Height (Calculated Centimeters) 187.96 187. 96 [facility] Body Mass Index (BMI) 34.7 34.7 [facility] Weight (Calculated Kilograms) 122.47 122.47 [facility] Height (Calculated Centimeters) 187.96 187. 96 [facility] Body Mass Index (BMI) 34.7 34.7 [facility] ID Date Data Source [id number] 12/16/2019 08:48:00 AM EDT [facility] Name Value Range Interpretation Code Description Data Source(s) Weight (Calculated Kilograms) 122.47 122.47 [facility] Height (Calculated Centimeters) 187.96 187. 96 [facility] Body Mass Index (BMI) 34.7 34.7 [facility] Weight (Calculated Kilograms) 122.47 122.47 [facility] Height (Calculated Centimeters) 187.96 187. 96 [facility] Body Mass Index (BMI) 34.7 34.7 [facility] Weight (Calculated Kilograms) 122.47 122.47 [facility] Height (Calculated Centimeters) 187.96 187. 96 [facility] Body Mass Index (BMI) 34.7 34.7 [facility] Weight (Calculated Kilograms) 122.47 122.47 [facility] Height (Calculated Centimeters) 187.96 187. 96 [facility] Body Mass Index (BMI) 34.7 34.7 [facility] Hospital ID Date Data Source [id number] 07/06/2020 11:01:00 AM EST [facility] Name Value Range Interpretation Code Description Data Source(s) Weight (Calculated Kilograms) 122.47 122.47 [facility] Height (Calculated Centimeters) 187.96 187. 96 [facility] Body Mass Index (BMI) 34.7 34.7 [facility] ID Date Data Source [id number] 12/02/2019 08:27:00 AM EDT [facility] Hospital Name Value Range Interpretation Code Description Data Source(s) Weight (Calculated Kilograms) 122.47 122.47 [facility] Height (Calculated Centimeters) 187.96 187. 96 [facility] Body Mass Index (BMI) 34.7 34.7 [facility] Weight (Calculated Kilograms) 122.47 122.47 [facility] Height (Calculated Centimeters) 187.96 187. 96 [facility] Body Mass Index (BMI) 34.7 34.7 [facility] Weight (Calculated Kilograms) 122.47 122.47 [facility] Height (Calculated Centimeters) 187.96 187. 96 [facility] Body Mass Index (BMI) 34.7 34.7 [facility] ID Date Data Source [id number] 11/25/2019 09:17:00 AM EDT [facility] Hospital Name Value Range Interpretation Code Description Data Source(s) Weight (Calculated Kilograms) 122.47 122.47 [facility] Height (Calculated Centimeters) 187.96 187. 96 [facility] Body Mass Index (BMI) 34.7 34.7 [facility] Weight (Calculated Kilograms) 122.47 122.47 [facility] Height (Calculated Centimeters) 187.96 187. 96 [facility] Body Mass Index (BMI) 34.7 34.7 [facility] Hospital ID Date Data Source [id number] 07/06/2020 11:01:00 AM EST [facility] Hospital Name Value Range Interpretation Code Description Data Source(s) Weight (Calculated Kilograms) 122.47 122.47 [facility] Height (Calculated Centimeters) 187.96 187. 96 [facility] Body Mass Index (BMI) 34.7 34.7 [facility] ID Date Data Source [id number] 11/08/2019 10:57:00 AM EDT [facility] Name Value Range Interpretation Code Description Data Source(s) Weight (Calculated Kilograms) 122.47 122.47 [facility] Height (Calculated Centimeters) 187.96 187. 96 [facility] Body Mass Index (BMI) 34.7 34.7 [facility] Weight (Calculated Kilograms) 122.47 122.47 [facility] Height (Calculated Centimeters) 187.96 187. 96 [facility] Body Mass Index (BMI) 34.7 34.7 [facility] Hospital ID Date Data Source [id number] 11/03/2019 09:47:00 AM EDT [facility] Name Value Range Interpretation Code Description Data Source(s) Weight (Calculated Kilograms) 122.47 122.47 [facility] Height (Calculated Centimeters) 187.96 187. 96 [facility] Body Mass Index (BMI) 34.7 34.7 [facility] Weight (Calculated Kilograms) 122.47 122.47 [facility] Height (Calculated Centimeters) 187.96 187. 96 [facility] Body Mass Index (BMI) 34.7 34.7 [facility] Hospital ID Date Data Source [id number] 11/03/2019 08:36:00 AM EDT [facility] Hospital Name Value Range Interpretation Code Description Data Source(s) Weight (Calculated Kilograms) 122.47 122.47 [facility] Height (Calculated Centimeters) 187.96 187. 96 [facility] Body Mass Index (BMI) 34.7 34.7 [facility] Weight (Calculated Kilograms) 122.47 122.47 [facility] Height (Calculated Centimeters) 187.96 187. 96 [facility] Body Mass Index (BMI) 34.7 34.7 [facility] ID Date Data Source [id number] 11/01/2019 12:06:00 PM EDT [facility] Hospital Name Value Range Interpretation Code Description Data Source(s) Weight (Calculated Kilograms) 122.47 122.47 [facility] Height (Calculated Centimeters) 187.96 187. 96 [facility] Body Mass Index (BMI) 34.7 34.7 [facility] Weight (Calculated Kilograms) 122.[address] [place] [address] Height (Calculated Centimeters) 187.96 187. 96 [facility] Body Mass Index (BMI) 34.7 34.7 [facility] ID Date Data Source [id number] 07/06/2020 11:01:00 AM EST [facility] Name Value Range Interpretation Code Description Data Source(s) Weight Measurement Method 1 1 [facility] Weight (Calculated Kilograms) 122.47 122.47 [facility] Weight 4528.0 4528.0 [facility] Temperature Source 7 7 [facility] Temperature 97.9 97.9 [facility] Respiratory Effort 1 1 [facility] Respiratory Rate 17 17 [facility] Pulse Assessment Method 4 4 [facility] Pulse Rate 88 88 [facility] Height (Calculated Centimeters) 187.96 187. 96 [facility] Height 74 74 [facility] Blood Pressure 137/82 137/82 [facility] Body Mass Index (BMI) 34.7 34.7 [facility] Weight Measurement Method 1 1 [facility] Weight (Calculated Kilograms) 122.47 122.47 [facility] Weight 4528.0 4528.0 [facility] Temperature Source 7 7 [facility] Temperature 97.9 97.9 [facility] Respiratory Effort 1 1 [facility] Respiratory Rate 17 17 [facility] Pulse Assessment Method 4 4 [facility] Pulse Rate 88 88 [facility] Height (Calculated Centimeters) 187.96 187. 96 [facility] Height 74 74 [facility] Blood Pressure 137/82 137/82 [facility] Body Mass Index (BMI) 34.7 34.7 [facility] Weight Measurement Method 1 1 [facility] Weight (Calculated Kilograms) 122.47 122.47 [facility] Weight 4528.0 4528.0 [facility] Temperature Source 7 7 [facility] Temperature 97.9 97.9 [facility] Respiratory Effort 1 1 [facility] Respiratory Rate 17 17 [facility] Pulse Assessment Method 4 4 [facility] Pulse Rate 88 88 [facility] Height (Calculated Centimeters) 187.96 187. 96 [facility] Height 74 74 [facility] Blood Pressure 137/82 137/82 [facility] Body Mass Index (BMI) 34.7 34.7 [facility] Weight Measurement Method 1 1 [facility] Weight (Calculated Kilograms) 122.47 122.47 [facility] Weight 4528.0 4528.0 [facility] Temperature Source 7 7 [facility] Temperature 97.9 97.9 [facility] Respiratory Effort 1 1 [facility] Respiratory Rate 17 17 [facility] Pulse Assessment Method 4 4 [facility] Pulse Rate 88 88 [facility] Height (Calculated Centimeters) 187.96 187. 96 [facility] Height 74 74 [facility] Blood Pressure 137/82 137/82 [facility] Body Mass Index (BMI) 34.7 34.7 [facility] Weight Measurement Method 1 1 [facility] Weight (Calculated Kilograms) 122.47 122.47 [facility] Weight 4464.0 4464.0 [facility] Temperature Source 7 7 [facility] Temperature 97.9 97.9 [facility] Respiratory Effort 1 1 [facility] Respiratory Rate 16 16 [facility] Pulse Assessment Method 4 4 [facility] Pulse Rate 99 99 [facility] Height (Calculated Centimeters) 187.96 187. 96 [facility] Height 74 74 [facility] Blood Pressure 127/90 127/90 [facility] Body Mass Index (BMI) 34.7 34.7 [facility] Weight (Calculated Kilograms) 122.47 122.47 [facility] Weight 4320 4320 [facility] Temperature Source 7 7 [facility] Temperature 97.8 97.8 [facility] Respiratory Effort 1 1 [facility] Respiratory Rate 18 18 [facility] Pulse Assessment Method 4 4 [facility] Pulse Rate 83 83 [facility] Height (Calculated Centimeters) 187.96 187. 96 [facility] Height 74 74 [facility] Blood Pressure 133/91 133/91 [facility] Body Mass Index (BMI) 34.7 34.7 [facility] Weight (Calculated Kilograms) 122.47 122.47 [facility] Weight 4320 4320 [facility] Temperature 98.2 98.2 [facility] Respiratory Effort 1 1 [facility] Respiratory Rate 15 15 [facility] Pulse Rate 67 67 [facility] Height (Calculated Centimeters) 187.96 187. 96 [facility] Height 74 74 [facility] Blood Pressure 133/90 133/90 [facility] Body Mass Index (BMI) 34.7 34.7 [facility] Weight (Calculated Kilograms) 122.47 122.47 [facility] Height (Calculated Centimeters) 187.96 187. 96 [facility] Body Mass Index (BMI) 34.7 34.7 [facility] ID Date Data Source [id number] 08/05/2019 10:28:56 AM [facility] Name Value Range Interpretation Code Description Data Source(s) WEIGHT RECORDED 279.98 lb 279.98 lb [facility] Body height Measured 70.[address] [facility] ID Date Data Source [id number] 08/13/2019 10:46:58 PM [facility] Name Value Range Interpretation Code Description Data Source(s) WEIGHT RECORDED 274.25 lb 274.25 lb [facility] ID Date Data Source [id number] 07/06/2020 11:00:00 AM EST [facility] Name Value Range Interpretation Code Description Data Source(s) Weight Measurement Method 1 1 [facility] Weight (Calculated Kilograms) 122.47 122.47 [facility] Weight 4576.0 4576.0 [facility] Temperature Source 7 7 [facility] Temperature 98.4 98.4 [facility] Respiratory Effort 1 1 [facility] Respiratory Rate 18 18 [facility] Pulse Assessment Method 4 4 [facility] Pulse Rate 95 95 [facility] Height (Calculated Centimeters) 187.96 187. 96 [facility] Height 74 74 [facility] Blood Pressure 141/93 141/93 [facility] Body Mass Index (BMI) 34.7 34.7 [facility] Weight Measurement Method 1 1 [facility] Weight (Calculated Kilograms) 122.47 122.47 [facility] Weight 4576.0 4576.0 [facility] Temperature Source 7 7 [facility] Temperature 98.4 98.4 [facility] Respiratory Effort 1 1 [facility] Respiratory Rate 18 18 [facility] Pulse Assessment Method 4 4 [facility] Pulse Rate 95 95 [facility] Height (Calculated Centimeters) 187.96 187. 96 [facility] Height 74 74 [facility] Blood Pressure 141/93 141/93 [facility] Body Mass Index (BMI) 34.7 34.7 [facility] Weight Measurement Method 1 1 [facility] Weight (Calculated Kilograms) 122.47 122.47 [facility] Weight 4576.0 4576.0 [facility] Temperature Source 7 7 [facility] Temperature 98.4 98.4 [facility] Respiratory Effort 1 1 [facility] Respiratory Rate 18 18 [facility] Pulse Assessment Method 4 4 [facility] Pulse Rate 95 95 [facility] Height (Calculated Centimeters) 187.96 187. 96 [facility] Height 74 74 [facility] Blood Pressure 141/93 141/93 [facility] Body Mass Index (BMI) 34.7 34.7 [facility] Weight Measurement Method 1 1 [facility] Weight (Calculated Kilograms) 122.47 122.47 [facility] Weight 4320 4320 [facility] Temperature Source 7 7 [facility] Temperature 97.8 97.8 [facility] Respiratory Effort 1 1 [facility] Respiratory Rate 16 16 [facility] Pulse Assessment Method 4 4 [facility] Pulse Rate 76 76 [facility] Height (Calculated Centimeters) 187.96 187. 96 [facility] Height 74 74 [facility] Blood Pressure 126/83 126/83 [facility] Body Mass Index (BMI) 34.7 34.7 [facility] Weight Measurement Method 1 1 [facility] Weight (Calculated Kilograms) 122.47 122.47 [facility] Weight 4320 4320 [facility] Temperature Source 7 7 [facility] Temperature 97.9 97.9 [facility] Respiratory Effort 1 1 [facility] Respiratory Rate 16 16 [facility] Pulse Assessment Method 4 4 [facility] Pulse Rate 77 77 [facility] Height (Calculated Centimeters) 187.96 187. 96 [facility] Height 74 74 [facility] Blood Pressure 128/86 128/86 [facility] Body Mass Index (BMI) 34.7 34.7 [facility] Weight Measurement Method 1 1 [facility] Weight (Calculated Kilograms) 122.47 122.47 [facility] Weight 4320 4320 [facility] Temperature Source 7 7 [facility] Temperature 97.9 97.9 [facility] Respiratory Effort 1 1 [facility] Respiratory Rate 16 16 [facility] Pulse Assessment Method 4 4 [facility] Pulse Rate 82 82 [facility] Height (Calculated Centimeters) 187.96 187. 96 [facility] Height 74 74 [facility] Blood Pressure 139/72 139/72 [facility] Body Mass Index (BMI) 34.7 34.7 [facility] Weight Measurement Method 1 1 [facility] Weight (Calculated Kilograms) 122.47 122.47 [facility] Weight 4320 4320 [facility] Temperature Source 7 7 [facility] Temperature 96.2 96.2 [facility] Respiratory Effort 1 1 [facility] Respiratory Rate 18 18 [facility] Pulse Assessment Method 4 4 [facility] Pulse Rate 86 86 [facility] Height (Calculated Centimeters) 187.96 187. 96 [facility] Height 74 74 [facility] Blood Pressure 141/98 141/98 [facility] Body Mass Index (BMI) 34.7 34.7 [facility] Weight (Calculated Kilograms) 137.44 137.44 [facility] Height (Calculated Centimeters) 182.88 182. 88 [facility] Body Mass Index (BMI) 41.1 41.1 [facility] ID Date Data Source [id number] 07/06/2020 11:00:00 AM [facility] Name Value Range Interpretation Code Description Data Source(s) Weight Measurement Method 1 1 [facility] Weight (Calculated Kilograms) 137.44 137.44 [facility] Weight 4960 4960 [facility] Temperature Source 3 3 [facility] Temperature 97.3 97.3 [facility] Respiratory Effort 2 2 [facility] Respiratory Rate 18 18 [facility] Pulse Assessment Method 4 4 [facility] Pulse Rate 90 90 [facility] Height (Calculated Centimeters) 182.88 182. 88 [facility] Height 72 72 [facility] Blood Pressure 142/85 142/85 [facility] Body Mass Index (BMI) 41.1 41.1 [facility] Patient Treatment Plan of Care Planned Activity Planned Date Details Description Data Source (s) Acetaminophen 325 MG Oral Tablet 07/24/2019 05:24:32 PM [facility] QUEtiapine (SEROquel) tablet 300 mg 07/15/2019 10:00:00 PM [facility] Trazodone Hydrochloride 100 MG Oral Tablet 07/15/2019 10:00:00 PM E [facility] dextrose 50 % IV solution 25 mL 07/15/2019 01:00:26 AM [facility] Glucagon 1 MG Injection 07/15/2019 01:00:26 AM [facility] Glucose 0.4 MG/MG Oral Gel 07/15/2019 01:00:26 AM [facility] Melatonin 3 MG Oral Tablet 10/17/2014 12:00:00 AM T [facility] Lurasidone Hydrochloride 40 MG Oral Tablet 07/10/2014 12:00:00 AM E [facility] quetiapine 200 MG Oral Tablet [facility] ([facility]) Nicotine 2 MG Chewing Gum AT [facility] ([facility]) Clindamycin 300 MG Oral Capsule [facility] ([facility]) Lisinopril 20 MG Oral Tablet [facility]
[2020-07-20] MEDS ORDERED: MOBI4TAB PO (14:50)
[2020-07-20 15:00] VITALS: BP 160/94
== END 2020-07-20 15:02 | disposition home or self-care (01) ==
LOC: M ED 12:23
DX: M79.641 Pain in right hand (principal); I10 Essential (primary) hypertension; E11.9 Type 2 diabetes mellitus without complications; J44.9 Chronic obstructive pulmonary disease, unspecified; F33.9 Major depressive disorder, recurrent, unspecified; F41.9 Anxiety disorder, unspecified; F20.9 Schizophrenia, unspecified; K21.9 Gastro-esophageal reflux disease without esophagitis; G47.33 Obstructive sleep apnea (adult) (pediatric); R56.9 Unspecified convulsions; E66.9 Obesity, unspecified; F15.11 Other stimulant abuse, in remission; Z99.89 Dependence on other enabling machines and devices; Z88.8 Allergy status to other drugs, medicaments and biological substances; Z79.899 Other long term (current) drug therapy; Z79.84 Long term (current) use of oral hypoglycemic drugs
CPT/HCPCS: 36415; 73130; 80047; 80076; 83036; 85025; 85652; 86140; 96372; 99284; J1885

== ENCOUNTER 2020-07-27 02:36 | Inpatient (IN) | payer MEDICAID, OTHER ==
[~2020-07-27] VITALS: Ht 188 cm; Wt 128.9 kg
[~2020-07-27 02:36] MED LIST changes: +MOBI4TAB PO
[2020-07-27] MEDS ORDERED: OLANZapine ORAL DISINTEGRATING TAB 5MG PO ONE (04:15)
[2020-07-27] MEDS ORDERED: LORazepam 2 MG TAB PO ONE (04:15)
[2020-07-27] MEDS ORDERED: diphenhydrAMINE 50MG/ML VIAL (J1200) IM ONE ×2 (06:30→16:05)
[2020-07-27] MEDS ORDERED: LORazepam 2 MG/ML VIAL IM ONE ×2 (06:30→16:05)
[2020-07-27] MEDS ORDERED: OLANZapine INTRAMUSCULAR 10MG VIAL IM ONE ×2 (06:30→16:05)
[2020-07-27] MEDS ORDERED: LIDOCAINE 2% 5ML JELLY UROJET TOP ONE (06:35)
[2020-07-27 10:19] LABS: HEMATOCRIT 37.1 % (42.0-52.0); HEMOGLOBIN 12.3 g/dl (13.5-17.5); MEAN CORPUSCULAR HEMOGLOBIN 27.3 pg (27.0-33.0); MEAN CORPUSCULAR HGB CONC 33.2 g/dl (32.0-36.5); MEAN CORPUSCULAR VOLUME 82.4 fl (80.0-96.0); PLATELET COUNT, AUTOMATED 216 10^3/uL (150-450); WHITE BLOOD COUNT 5.4 10^3/uL (4.0-10.0)
[2020-07-27 10:59] LABS: ACETAMINOPHEN LEVEL < 2.0 UG/ML (10.0-30.0); ALBUMIN 3.1 GM/DL (3.2-5.2); ALT/SGPT 43 U/L (12-78); AMPHETAMINES LEVEL URINE NEGATIVE (NEGATIVE); BARBITURATES URINE NEGATIVE (NEGATIVE); BENZODIAZEPINES URINE NEGATIVE (NEGATIVE); BILIRUBIN,DIRECT 0.1 MG/DL (0.0-0.2); BILIRUBIN,TOTAL 0.6 MG/DL (0.2-1.0); BLOOD UREA NITROGEN 9 MG/DL (7-18); CALCIUM LEVEL 7.9 MG/DL (8.5-10.1); CANNABINOIDS URINE NEGATIVE (NEGATIVE); CARBON DIOXIDE LEVEL 26 MEQ/L (21-32); CHLORIDE LEVEL 105 MEQ/L (98-107); COCAINE METABOLITE URINE NEGATIVE (NEGATIVE); CREATININE FOR GFR 1.04 MG/DL (0.70-1.30); ETHYL ALCOHOL (ETHANOL) < 0.003 % (0.000-0.010); GLOMERULAR FILTRATION RATE > 60.0 (>56); GLUCOSE, FASTING 221 MG/DL (70-100); METHADONE URINE NEGATIVE (NEGATIVE); OPIATES URINE NEGATIVE (NEGATIVE); PHENCYCLIDINE URINE NEGATIVE (NEGATIVE); POTASSIUM SERUM 4.4 MEQ/L (3.5-5.1); SALICYLATE LEVEL < 1.7 MG/DL (5.0-30.0); SODIUM LEVEL 139 MEQ/L (136-145); TOTAL PROTEIN 6.3 GM/DL (6.4-8.2)
[2020-07-27 13:17] LABS: RSV AMPLIFICATION NEGATIVE (NEGATIVE)
[2020-07-27] MEDS ORDERED: SERO1TAB2 PO (14:17)
[2020-07-27] MEDS ORDERED: TRUL10IN SC (14:17)
[2020-07-27] MEDS ORDERED: GLIP10TA18 PO (14:17)
[2020-07-27] MEDS ORDERED: TRAZ1TAB14 PO (14:17)
[2020-07-27] MEDS ORDERED: MELO7.5T35 PO (14:53)
[2020-07-27] MEDS ORDERED: MAALOX 30 ML SUSP *UDC PO PRN (14:55)
[2020-07-27] MEDS ORDERED: MOM 30ML SUSPENSION UDC PO PRN (14:55)
[2020-07-27] MEDS ORDERED: traZODone 50 MG TAB PO PRN (14:55)
[2020-07-27] MEDS: metFORMIN (GLUCOPHAGE) 1000 MG TABLET PO SCH (17:20)
[2020-07-27] MEDS ORDERED: LORazepam 2 MG/ML VIAL IM STA (19:58)
[2020-07-27] MEDS ORDERED: chlorproMAZINE INJ 50MG/2ML AMP (J3230) IM STA (19:58)
[2020-07-27] MEDS ORDERED: diphenhydrAMINE 50MG/ML VIAL (J1200) IM STA (19:58)
[2020-07-27] MEDS: QUEtiapine FUMARATE 100 MG TAB PO SCH ×2 (21:00→22:30)
[2020-07-27] MEDS: traZODone 100 MG TAB PO SCH ×2 (21:00→22:30)
--- NOTE | 2020-07-27 21:41 | IPNPDOC ---
Text Note Date of Service The patient was seen on 07/27/20. NOTE INTERIM NOTE: S: Called to the [facility] to evaluation patient s/p aggressive outburst towards staff. At the time of my arrival, patient had already been placed under both mechanical and chemical restraints. Per report, patient was pacing around the unit aggressively, shouting profanities pertaining to race and politics. Pt was threatening to harm other patient's on the unit. PRN medications were offered and refused. He became increasingly agitated and began threatening to harm staff. [place] [employer] were contacted to assist. Upon their arrival, patient was co operative with restraints. O: PHYSICAL EXAMINATION: VITAL SIGNS: Please see below. GENERAL: Resting quietly in 4points restraints, lethargic, sleepy HEENT: moist mm CARDIOVASCULAR: S1S2 sinus tachycardia no murmurs RESPIRATORY: CTAB AEBE ABDOMINAL: +BS soft NT ND EXTREMITIES: no edema LABORATORY DATA, IMAGING STUDIES, MICROBIOLOGY: Please see below. A/P: 55 year old male with a history of schizophrenia and substance abuse who became aggressive towards patient's and staff while in [facility]. #Aggression/Manic Behavior -Patient was placed under 4 point restraints. D/C when patient is no longer violent/self-destructive and contracts for safety. -Ativan, Benadryl and Chlorpromazine administered per Dr. Rios. -Sitter VS,Fishbone, I+O VS, Fishbone, I+O Laboratory Tests 07/27/20 09:54 07/27/20 09:55 Vital Signs Date Time Temp Pulse Resp B/P (MAP) Pulse Ox O2 Delivery O2 Flow Rate FiO2 07/27/20 18:22 170/86 07/27/20 15:46 97.4 74 20 97 07/27/20 08:46 Room Air GME ATTESTATION GME ATTESTATION My faculty preceptor for this patient encounter was physically present during the encounter and was fully available. All aspects of the patient interview, examination, medical decision making process, and medical care plan development were reviewed and approved by the faculty preceptor. The faculty preceptor is aware and concurs with the plan as stated in the body of this note and will attest to such by his/her cosignature. KERA ABAD DO Jul 27, 2020 21:41 CIRILO TUCKER MD 6, 2021 04:02
[2020-07-28] MEDS: ACETAMINOPHEN TAB 650MG DOSE (2X325MG) PO PRN (07:56)
[2020-07-28] MEDS: metFORMIN (GLUCOPHAGE) 1000 MG TABLET PO SCH ×2 (07:57→17:07)
[2020-07-28] MEDS: MELOXICAM (MOBIC) 7.5 MG TAB PO SCH (07:57)
--- NOTE | 2020-07-28 10:57 | HPEPDOC ---
[facility] Medical History & Physical Date of Admission Jul 27, 2020 Date of Service: Jul 28, 2020 History and Physical CHIEF COMPLAINT: suicidal ideation HISTORY OF PRESENT ILLNESS: This is a 54 years old -Citizen Of [place] male with past medical history as per documentation of diastolic heart failure with EF of 65-70%, COPD, left eye blindness, obesity, diabetes mellitus, hypertension, tobacco use, depression. 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 This morning he denies any medical complaints. He denies chest pain, shortness of breath, abdominal pain, nausea, vomiting, diarrhea, headaches. Overnight he was aggressive and agitated, requiring physical restraints. PAST MEDICAL HISTORY: #HFpEF #HTN #DM #obesity #COPD #vision impairment - left eye blind as per documentation #nicotine abuse ALLERGIES: Please see below. REVIEW OF SYSTEMS: Negative except as per HPI. HOME MEDICATIONS: Please see below. PHYSICAL EXAMINATION: VITAL SIGNS: See below General: NAD, sitting comfortably at edge of bed HEENT: NC/AT Lungs: CTA B/L Heart: +S1S2, RRR Abd: soft, NT, obese, +BS Ext: no edema, poor foot care LABORATORY DATA: See below. MICROBIOLOGY: Please see below. A/P: 55-year-old gentleman brought in by [employer] police for aggressive, agitated behavior and suicidal ideation. #SI - as per primary team - psychiatry #HFpEF - as per documentation - compensated #HTN - continue home meds - lisinopril #DM - continue home meds - metformin - needs foot care #obesity - complicates medical care #COPD - stable #vision impairment - left eye blind #nicotine abuse - Not interested in nicotine replacement therapy Thank you for this consultation. Please reconsult as needed. Vital Signs Vital Signs Date Time Temp Pulse Resp B/P (MAP) Pulse Ox O2 Delivery O2 Flow Rate FiO2 07/28/20 07:57 170/86 07/27/20 15:46 97.4 74 20 97 07/27/20 08:46 Room Air Laboratory Data Labs 24H Laboratory Tests 2 07/27/20 12:27: Coronavirus (COVID-19)(PCR) NEGATIVE, Influenza Type A (RT-PCR) NEGATIVE, Influenza Type B (RT-PCR) NEGATIVE, Respiratory Syncytial Virus (PCR) NEGATIVE Home Medications Scheduled Dulaglutide (Trulicity) 0.75 Mg/0.5 Ml Pen.injctr, 0.75 MG SC 1XWK MONDAYS Glipizide (Glipizide ER) 10 Mg Tab.er.24, 10 MG PO DAILY Lisinopril (Lisinopril) 20 Mg Tablet, 20 MG PO DAILY Meloxicam (Meloxicam) 7.5 Mg Tablet, 7.5 MG PO DAILY Metformin HCl (Metformin HCl) 1,000 Mg Tab, 1,000 MG PO BID Quetiapine Fumarate (Seroquel) 300 Mg Tablet, 300 MG PO QHS Trazodone HCl (Trazodone HCl) 150 Mg Tablet, 300 MG PO QHS Allergies Coded Allergies: haloperidol (Verified Adverse Reaction, Unknown, unknown, 07/27/20) Per brother, there was a reaction in the past the [facility]. He was unable to describe the reaction. A-FIB/CHADSVASC A-FIB History Current/History of A-Fib/PAF?: No ALBERTO MCLAIN MD Jul 28, 2020 10:21
[2020-07-28] MEDS ORDERED: LORazepam 1 MG TAB PO PRN (12:50)
[2020-07-28] MEDS ORDERED: haloperidoL 5 MG TAB PO PRN (12:55)
[2020-07-28] MEDS: PALIPERIDONE 6 MG ER TAB (INVEGA) PO SCH (13:17)
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
[2020-07-28] MEDS: OLANZapine ORAL DISINTEGRATING TAB 5MG PO SCH ×2 (16:00→21:00)
[2020-07-28 16:12] VITALS: BP 146/70
[2020-07-28] MEDS ORDERED: LORazepam 2 MG TAB PO ONE (20:00)
[2020-07-28] MEDS ORDERED: diphenhydrAMINE 50MG CAP PO ONE (20:00)
[2020-07-28] MEDS ORDERED: ChlorproMAZINE 100 MG TABLET PO ONE (20:00)
[2020-07-28] MEDS: chlorproMAZINE INJ 50MG/2ML AMP (J3230) IM STA ×2 (20:33→22:03)
[2020-07-28] MEDS: LORazepam 2 MG/ML VIAL IM STA ×2 (20:33→22:02)
[2020-07-28] MEDS: diphenhydrAMINE 50MG/ML VIAL (J1200) IM STA ×2 (20:34→22:02)
[2020-07-28] MEDS: traZODone 100 MG TAB PO SCH (21:00)
[2020-07-28] MEDS: QUEtiapine FUMARATE 100 MG TAB PO SCH (21:00)
[2020-07-28] MEDS ORDERED: chlorproMAZINE INJ 50MG/2ML AMP (J3230) IM STA (21:57)
--- NOTE | 2020-07-28 23:17 | MHIPNPDOC ---
[facility] Progress Note Progress Note DATE OF SERVICE: 07/28/20 Pre restraint Note On 07/27/2020, I was called by Nursing staff who reported that patient was extremely aggressive, angry, agitated, threatening staff. This radio news writer spoke with staff members and recommended physical and chemical restraints because he was a danger to self and others at that time. Vital Signs Vital Signs Date Time Temp Pulse Resp B/P (MAP) Pulse Ox O2 Delivery O2 Flow Rate FiO2 07/28/20 16:12 97.4 100 18 146/70 (95) 100 Room Air Current Medications Current Medications Medications (Trade) Dose Ordered Sig/Preston Route PRN Reason Start Time Stop Time Status Last Admin Dose Admin Acetaminophen (Tylenol Tab) 650 mg Q6HP PRN PO HEADACHE or DISCOMFORT 07/27/20 14:55 07/28/20 07:56 Al Hydrox/Mg Hydrox/Simethicone (Mylanta) 30 ml Q4HP PRN PO HEARTBURN/INDIGESTION 07/27/20 14:55 Chlorpromazine HCl (Thorazine) 100 mg STAT STAT IM 07/27/20 19:58 07/27/20 20:01 DC 07/27/20 20:30 Chlorpromazine HCl (Thorazine) 100 mg STAT STAT IM 07/28/20 20:17 07/28/20 20:20 DC 07/28/20 22:03 Chlorpromazine HCl (Thorazine) 100 mg STAT STAT IM 07/28/20 21:57 07/28/20 21:58 DC 07/28/20 22:15 Diphenhydramine HCl (Benadryl) 50 mg STAT STAT IM 07/27/20 19:58 07/27/20 20:01 DC 07/27/20 20:31 Diphenhydramine HCl (Benadryl) 100 mg STAT STAT IM 07/28/20 20:17 07/28/20 20:20 DC 07/28/20 22:02 Haloperidol (Haldol) 5 mg TIDP PRN PO AGITATION 07/28/20 12:55 UNV Home Med (Med Rec Complete!) ASDIRECTED XX 07/27/20 15:00 07/27/20 14:59 DC Lisinopril (Prinivil) 20 mg DAILY PO 07/27/20 09:00 07/28/20 07:57 Lorazepam (Ativan) 1 mg TIDP PRN PO ANXIETY 07/28/20 12:50 Lorazepam (Ativan) 2 mg STAT STAT IM 07/27/20 19:58 07/27/20 20:01 DC 07/27/20 20:31 Lorazepam (Ativan) 2 mg STAT STAT IM 07/28/20 20:17 07/28/20 20:20 DC 07/28/20 22:02 Magnesium Hydroxide (Milk Of Magnesia) 30 ml DAILYPRN PRN PO CONSTIPATION 07/27/20 14:55 Meloxicam (Mobic) 7.5 mg DAILY PO 07/28/20 09:00 07/28/20 07:57 Metformin HCl (Glucophage) 1,000 mg BIDWM PO 07/27/20 18:00 07/28/20 17:07 Olanzapine (ZyPREXA ZYDIS) 5 mg TID PO 07/28/20 16:00 Paliperidone (Invega) 6 mg DAILY PO 07/28/20 09:00 07/28/20 13:17 Quetiapine Fumarate (SEROquel) 300 mg QHS PO 07/27/20 21:00 07/27/20 22:30 Trazodone HCl (Desyrel) 50 mg QHSP PRN PO INSOMNIA 07/27/20 14:55 Cancel Trazodone HCl (Desyrel) 300 mg QHS PO 07/27/20 21:00 07/27/20 22:30 Allergies Coded Allergies: haloperidol (Verified Adverse Reaction, Unknown, unknown, 07/27/20) Per brother, there was a reaction in the past the alf. He was unable to describe the reaction. RACHEL MCINTOSH MD Jul 28, 2020 23:17
--- NOTE | 2020-07-28 23:25 | MHIPNPDOC ---
[facility] Progress Note Progress Note DATE OF SERVICE: 07/28/20 The patient has been agitated the whole day but earlier, he was able to calm himslef down with the help of staff members eho helped to de escalate him. He was able to go to his room, shortly after I met with him. Later, during the evening he became very agitated again. He started threatening staff and was very intrusive with other patients, who were anxious about his behavior. A code was called but he was very irritable and was menacing staff, so this designer/writer recommended not to get close to him. [facility] was contacted and they were able to assit since once he saw them, he was able to calm down and he accepted his injection and to be restrained. He was injected with [id number] mgs, Benadryl 100 mgs and Ativan 2 mgs. Approximately one hour later I was notified that he was still agitated, fighting the restraints, so, another 100 mgs of Throzine were indicated and he had to remian in restraints for another two hours. He has been hemodynamically stable. Vital Signs Vital Signs Date Time Temp Pulse Resp B/P (MAP) Pulse Ox O2 Delivery O2 Flow Rate FiO2 07/28/20 16:12 97.4 100 18 146/70 (95) 100 Room Air Current Medications Current Medications Medications (Trade) Dose Ordered Sig/Preston Route PRN Reason Start Time Stop Time Status Last Admin Dose Admin Acetaminophen (Tylenol Tab) 650 mg Q6HP PRN PO HEADACHE or DISCOMFORT 07/27/20 14:55 07/28/20 07:56 Al Hydrox/Mg Hydrox/Simethicone (Mylanta) 30 ml Q4HP PRN PO HEARTBURN/INDIGESTION 07/27/20 14:55 Chlorpromazine HCl (Thorazine) 100 mg STAT STAT IM 07/27/20 19:58 07/27/20 20:01 DC 07/27/20 20:30 Chlorpromazine HCl (Thorazine) 100 mg STAT STAT IM 07/28/20 20:17 07/28/20 20:20 DC 07/28/20 22:03 Chlorpromazine HCl (Thorazine) 100 mg STAT STAT IM 07/28/20 21:57 07/28/20 21:58 DC 07/28/20 22:15 Diphenhydramine HCl (Benadryl) 50 mg STAT STAT IM 07/27/20 19:58 07/27/20 20:01 DC 07/27/20 20:31 Diphenhydramine HCl (Benadryl) 100 mg STAT STAT IM 07/28/20 20:17 07/28/20 20:20 DC 07/28/20 22:02 Haloperidol (Haldol) 5 mg TIDP PRN PO AGITATION 07/28/20 12:55 UNV Home Med (Med Rec Complete!) ASDIRECTED XX 07/27/20 15:00 07/27/20 14:59 DC Lisinopril (Prinivil) 20 mg DAILY PO 07/27/20 09:00 07/28/20 07:57 Lorazepam (Ativan) 1 mg TIDP PRN PO ANXIETY 07/28/20 12:50 Lorazepam (Ativan) 2 mg STAT STAT IM 07/27/20 19:58 07/27/20 20:01 DC 07/27/20 20:31 Lorazepam (Ativan) 2 mg STAT STAT IM 07/28/20 20:17 07/28/20 20:20 DC 07/28/20 22:02 Magnesium Hydroxide (Milk Of Magnesia) 30 ml DAILYPRN PRN PO CONSTIPATION 07/27/20 14:55 Meloxicam (Mobic) 7.5 mg DAILY PO 07/28/20 09:00 07/28/20 07:57 Metformin HCl (Glucophage) 1,000 mg BIDWM PO 07/27/20 18:00 07/28/20 17:07 Olanzapine (ZyPREXA ZYDIS) 5 mg TID PO 07/28/20 16:00 Paliperidone (Invega) 6 mg DAILY PO 07/28/20 09:00 07/28/20 13:17 Quetiapine Fumarate (SEROquel) 300 mg QHS PO 07/27/20 21:00 07/27/20 22:30 Trazodone HCl (Desyrel) 50 mg QHSP PRN PO INSOMNIA 07/27/20 14:55 Cancel Trazodone HCl (Desyrel) 300 mg QHS PO 07/27/20 21:00 07/27/20 22:30 Allergies Coded Allergies: haloperidol (Verified Adverse Reaction, Unknown, unknown, 07/27/20) Per brother, there was a reaction in the past the residential. He was unable to describe the reaction. RACHEL MCINTOSH MD Jul 28, 2020 23:25
[2020-07-29] MEDS ORDERED: diphenhydrAMINE 50MG/ML VIAL (J1200) IM STA (00:06)
[2020-07-29] MEDS ORDERED: OLANZapine INTRAMUSCULAR 10MG VIAL IM STA (00:06)
[2020-07-29 08:04] LABS: CHOLESTEROL RISK RATIO 3.916 (<5)
[2020-07-29] MEDS: OLANZapine ORAL DISINTEGRATING TAB 5MG PO SCH ×2 (09:00→16:00)
[2020-07-29] MEDS: MELOXICAM (MOBIC) 7.5 MG TAB PO SCH (11:01)
[2020-07-29] MEDS: metFORMIN (GLUCOPHAGE) 1000 MG TABLET PO SCH ×2 (11:01→17:01)
[2020-07-29] MEDS: PALIPERIDONE 6 MG ER TAB (INVEGA) PO SCH (11:01)
[2020-07-29] MEDS: DIVALPROEX 250 MG TAB PO SCH ×4 (16:00→21:00)
[2020-07-29] MEDS ORDERED: OLANZapine ORAL DISINTEGRATING TAB 5MG PO SCH (16:00)
[2020-07-29] MEDS ORDERED: OLANZapine ORAL DISINTEGRATING TAB 5MG PO PRN (16:35)
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
[2020-07-29] MEDS ORDERED: QUEtiapine FUMARATE 200 MG TAB PO SCH (21:00)
[2020-07-29] MEDS: traZODone 100 MG TAB PO SCH (23:15)
[2020-07-29] MEDS: QUEtiapine FUMARATE 100 MG TAB PO SCH (23:15)
[2020-07-30 06:33] VITALS: BP 130/61
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
[2020-07-30] MEDS: MELOXICAM (MOBIC) 7.5 MG TAB PO SCH (08:11)
[2020-07-30] MEDS: metFORMIN (GLUCOPHAGE) 1000 MG TABLET PO SCH ×2 (08:11→17:48)
[2020-07-30] MEDS: PALIPERIDONE 3 MG ER TAB (INVEGA) PO SCH (08:12)
[2020-07-30] MEDS: ACETAMINOPHEN TAB 650MG DOSE (2X325MG) PO PRN ×2 (08:12→15:47)
[2020-07-30] MEDS: DIVALPROEX 250 MG TAB PO SCH ×3 (08:14→21:37)
[2020-07-30 17:51] VITALS: BP 129/66
[2020-07-30] MEDS: QUEtiapine FUMARATE 100 MG TAB PO SCH (21:36)
[2020-07-30] MEDS: traZODone 100 MG TAB PO SCH (21:36)
[2020-07-31] MEDS: ACETAMINOPHEN TAB 650MG DOSE (2X325MG) PO PRN (02:33)
[2020-07-31 06:44] VITALS: BP 123/74
[2020-07-31] MEDS: DIVALPROEX 250 MG TAB PO SCH (08:25)
[2020-07-31] MEDS: MELOXICAM (MOBIC) 7.5 MG TAB PO SCH (08:25)
[2020-07-31 08:26] VITALS: BP 123/74
[2020-07-31] MEDS: PALIPERIDONE 3 MG ER TAB (INVEGA) PO SCH (08:26)
[2020-07-31] MEDS: metFORMIN (GLUCOPHAGE) 1000 MG TABLET PO SCH (08:27)
[2020-07-31] MEDS ORDERED: INVE234I IM (09:28)
[2020-07-31] MEDS ORDERED: PALI1TAB2 PO (09:28)
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
[2020-07-31] MEDS ORDERED: PALIPERIDONE PALMITATE 234MG/1.5ML INJ (INVEGA)(FREE PSY INPT ONLY) IM ONE (12:00)
== END 2020-07-31 12:36 | disposition home or self-care (01) | DRG 750 ==
LOC: M ED 02:36 → M ED INP 14:55 → M PSY 16:36
PROVIDERS: ADMIT Psychiatry & Neurology Child & Adolescent Psychiatry; ATTEND Psychiatry & Neurology Child & Adolescent Psychiatry
DX: F20.9 Schizophrenia, unspecified (principal); E11.9 Type 2 diabetes mellitus without complications; R45.851 Suicidal ideations; Z91.19 Patient's noncompliance with other medical treatment and regimen; F10.10 Alcohol abuse, uncomplicated; Z79.899 Other long term (current) drug therapy; Z88.8 Allergy status to other drugs, medicaments and biological substances; I10 Essential (primary) hypertension; J44.9 Chronic obstructive pulmonary disease, unspecified; F17.200 Nicotine dependence, unspecified, uncomplicated; E66.9 Obesity, unspecified; H54.8 Legal blindness, as defined in USA

== ENCOUNTER 2020-08-19 16:45 | Emergency (ER) | payer MEDICAID, OTHER ==
[~2020-08-19] VITALS: Ht 188 cm; Wt 136.4 kg
[~2020-08-19 16:45] MED LIST changes: +GLIP10TA18 PO; +INVE234I IM; +MELO7.5T35 PO; +TRUL10IN SC
[2020-08-19] MEDS: COMBIVENT RESPIMAT 100-20MCG INHALER 4GM INH SCH ×3 (16:55→17:35)
[2020-08-19] MEDS ORDERED: ASPIRIN 81 MG CHEW TABLET PO ONE (16:55)
[2020-08-19] MEDS ORDERED: ASPIRIN 325 MG TAB PO ONE (17:25)
[2020-08-19 17:27] LABS: HEMATOCRIT 40.9 % (42.0-52.0); HEMOGLOBIN 13.6 g/dl (13.5-17.5); MEAN CORPUSCULAR HEMOGLOBIN 27.9 pg (27.0-33.0); MEAN CORPUSCULAR HGB CONC 33.3 g/dl (32.0-36.5); MEAN CORPUSCULAR VOLUME 83.8 fl (80.0-96.0); PLATELET COUNT, AUTOMATED 211 10^3/uL (150-450); RED BLOOD COUNT 4.88 10^6/uL (4.30-6.10); WHITE BLOOD COUNT 14.7 10^3/uL (4.0-10.0)
[2020-08-19 17:37] LABS: INR 1.32; PROTHROMBIN TIME 16.7 SECONDS (12.5-14.3)
--- NOTE | 2020-08-19 17:44 | REP ---
INDICATION: DYSPNEA/COUGH. COMPARISON: Comparison chest x-ray 05/16/2019. TECHNIQUE: Portable upright AP chest radiograph. FINDINGS: The lungs are well inflated and free of infiltrate. Pleural angles are sharp. Heart size is normal. Pulmonary vasculature is not increased. EKG monitoring electrodes are seen. IMPRESSION: No active disease. <Electronically signed by Gomez Garcia > 08/19/20 [id number]
[2020-08-19 17:49] LABS: ABG BASE EXCESS -0.7 (-2.0-2.0); ABG HCO3 22.4 MEQ/L (22.0-26.0); ABG O2 SATURATION 95.3 % (95.0-99.0); ABG PARTIAL PRESSURE CO2 32.7 mmHg (35.0-45.0); ABG PARTIAL PRESSURE O2 70.1 mmHg (75.0-100.0); ABG STANDARD HCO3 23.9 MEQ/L (22.0-26.0); ABG TOTAL CO2 23.4 MEQ/L (22.0-29.0); ABG pH (ARTERIAL) 7.454 UNITS (7.350-7.450)
[2020-08-19] MEDS ORDERED: OLANZapine INTRAMUSCULAR 10MG VIAL IM ONE (17:55)
[2020-08-19 17:57] LABS: ALBUMIN 2.5 GM/DL (3.2-5.2); ALT/SGPT 35 U/L (12-78); BILIRUBIN,DIRECT 0.5 MG/DL (0.0-0.2); BILIRUBIN,TOTAL 0.7 MG/DL (0.2-1.0); BLOOD UREA NITROGEN 21 MG/DL (7-18); CALCIUM LEVEL 8.4 MG/DL (8.5-10.1); CARBON DIOXIDE LEVEL 25 MEQ/L (21-32); CHLORIDE LEVEL 100 MEQ/L (98-107); CK-MB VALUE MASS < 1.0 NG/ML (<3.6); CPK CREATINE PHOSPHOKINASE 613 U/L (39-308); CREATININE FOR GFR 1.65 MG/DL (0.70-1.30); GLUCOSE, FASTING 195 MG/DL (70-100); MB/CK RELATIVE INDEX 0.16 (< OR =4); NT-PRO BNP 369 PG/ML (<125); SODIUM LEVEL 133 MEQ/L (136-145); TOTAL PROTEIN 6.5 GM/DL (6.4-8.2); TROPONIN I < 0.02 NG/ML (< 0.10)
[2020-08-19 18:12] LABS: LYMPHOCYTES 11 % (16-44); MONOCYTES 5 % (0-5); NEUTROPHILS 76 % (28-66); PLATELET ESTIMATE NORMAL (NORMAL); TOXIC VACUOLATION 2+
[2020-08-19 18:13] LABS: DOHLE BODIES 1+
[2020-08-19 18:25] LABS: RSV AMPLIFICATION NEGATIVE (NEGATIVE)
[2020-08-19] MEDS ORDERED: cefTRIAXone SOD 1 GM in D5W MINI-BAG PLUS 50 ML IV ONE (18:50)
--- NOTE | 2020-08-19 19:22 | REPVR ---
PROCEDURE INFORMATION: Exam: CT Head Without Contrast Exam date and time: 08/19/2020 6:40 PM Age: 55 years old Clinical indication: Altered mental status/memory loss; Confusion or disorientation; Additional info: AMS TECHNIQUE: Imaging protocol: Computed tomography of the head without contrast. Axial and coronal reformatted images were created and reviewed. Radiation optimization: All CT scans at this facility use at least one of these dose optimization techniques: automated exposure control; mA and/or kV adjustment per patient size (includes targeted exams where dose is matched to clinical indication); or iterative reconstruction. COMPARISON: CT Head without contrast 07/15/2017 3:23 AM FINDINGS: Brain: Subtle, patchy areas of hypoattenuation in the periventricular and subcortical white matter, nonspecific but suggestive of mild chronic small vessel ischemic disease. No CT evidence of acute intracranial hemorrhage or acute territorial infarction. No significant mass effect or midline shift. Basal cisterns patent. Cerebral ventricles: Prominence of the cortical sulci, cisterns and ventricular system, consistent with cerebral and cerebellar volume loss. Bones/joints: No acute osseous abnormality. Mild chronic appearing deformity of the right lamina papyracea. Paranasal sinuses: Mild ethmoid mucosal thickening. Mastoid air cells: Grossly unremarkable. Soft tissues: Grossly unremarkable. IMPRESSION: 1. No CT evidence of acute intracranial pathology. 2. Additional findings, as above. Electronically signed by: Juan Antonio Latham On 08/19/2020 19:22:37 PM
[2020-08-19] MEDS ORDERED: CEPH500T PO (19:51)
[2020-08-19] MEDS ORDERED: AZITHROMYCIN 250MG TABLET PO ONE (20:30)
[2020-08-19 21:03] VITALS: BP 124/79
--- NOTE | 2020-08-20 19:50 | ECGEPIP ---
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
== END 2020-08-19 21:04 | disposition home or self-care (01) ==
LOC: M ED 16:45 → EDBD 16:45 → M ED 21:04
DX: N39.0 Urinary tract infection, site not specified (principal); R00.0 Tachycardia, unspecified; R06.02 Shortness of breath; R05 Cough; E11.9 Type 2 diabetes mellitus without complications; I10 Essential (primary) hypertension; F33.9 Major depressive disorder, recurrent, unspecified; F41.9 Anxiety disorder, unspecified; Z79.899 Other long term (current) drug therapy
CPT/HCPCS: 36415; 36600; 70450; 71045; 80048; 80076; 81001; 82550; 82553; 82803; 83605; 83880; 85025; 85610; 87040; 87077; 87088; 87186; 87631; 93005; 93041; 94640; 94760; 96365; 96372; 99285; J0696

== ENCOUNTER 2020-08-21 23:00 | Emergency (ER) | payer OTHER ==
[~2020-08-21] VITALS: Ht 188 cm; Wt 130.0 kg
[~2020-08-21 23:00] MED LIST changes: +CEPH500T PO
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
[2020-08-21] MEDS ORDERED: NS 1,000 ML IV ONE (23:40)
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
[2020-08-21 23:58] LABS: INR 1.08; PROTHROMBIN TIME 14.2 SECONDS (12.5-14.3)
[2020-08-21 23:59] LABS: PARTIAL THROMBOPLASTIN TIME 30.5 SECONDS (24.2-38.5)
[2020-08-22 00:08] LABS: BASO % 0.3 % (0.0-1.0); EOS # 0.1 10^3/uL (0.0-0.5); EOS % 0.7 % (0.0-3.0); HEMOGLOBIN 12.4 g/dl (13.5-17.5); LYMPH # 2.1 10^3/uL (1.5-5.0); LYMPH % 18.2 % (24.0-44.0); MEAN CORPUSCULAR HEMOGLOBIN 27.6 pg (27.0-33.0); MEAN CORPUSCULAR HGB CONC 33.5 g/dl (32.0-36.5); MEAN CORPUSCULAR VOLUME 82.4 fl (80.0-96.0); MONO # 1.4 10^3/uL (0.0-0.8); MONO % 11.7 % (2.0-8.0); NEUTROPHILS # 7.9 10^3/uL (1.5-8.5); NEUTROPHILS % 67.6 % (36.0-66.0); PLATELET COUNT, AUTOMATED 232 10^3/uL (150-450); RED BLOOD COUNT 4.49 10^6/uL (4.30-6.10); WHITE BLOOD COUNT 11.7 10^3/uL (4.0-10.0)
[2020-08-22 00:20] LABS: ALBUMIN 2.7 GM/DL (3.2-5.2); ALT/SGPT 39 U/L (12-78); AMYLASE 29 U/L (25-115); BILIRUBIN,DIRECT 0.2 MG/DL (0.0-0.2); BILIRUBIN,TOTAL 0.4 MG/DL (0.2-1.0); BLOOD UREA NITROGEN 27 MG/DL (7-18); CALCIUM LEVEL 8.2 MG/DL (8.5-10.1); CARBON DIOXIDE LEVEL 28 MEQ/L (21-32); CHLORIDE LEVEL 91 MEQ/L (98-107); CK-MB VALUE MASS 4.4 NG/ML (<3.6); CPK CREATINE PHOSPHOKINASE 233 U/L (39-308); CREATININE FOR GFR 1.69 MG/DL (0.70-1.30); ETHYL ALCOHOL (ETHANOL) < 0.003 % (0.000-0.010); GLOMERULAR FILTRATION RATE 54.4 (>56); GLUCOSE, FASTING 471 MG/DL (70-100); LIPASE 213 U/L (73-393); MB/CK RELATIVE INDEX 1.89 (< OR =4); POTASSIUM SERUM 3.7 MEQ/L (3.5-5.1); SODIUM LEVEL 128 MEQ/L (136-145); TOTAL PROTEIN 7.1 GM/DL (6.4-8.2); TROPONIN I < 0.02 NG/ML (< 0.10)
--- NOTE | 2020-08-22 00:42 | REPVR ---
PROCEDURE INFORMATION: Exam: XR Chest Exam date and time: 08/22/2020 11:41 PM Age: 55 years old Clinical indication: Chest pain; Type not specified; Additional info: Trauma TECHNIQUE: Imaging protocol: XR of the chest Views: 1 view. COMPARISON: AR PORTABLE CHEST X-RAY 08/19/2020 5:18 PM FINDINGS: Lungs: Unremarkable. No consolidation. Pleural spaces: Unremarkable. No pleural effusion. No pneumothorax. Heart/Mediastinum: Unremarkable. No cardiomegaly. Bones/joints: No acute osseous abnormality. Mild degenerative changes. IMPRESSION: No acute radiographic findings. Electronically signed by: Juan Antonio Latham On 08/22/2020 00:42:21 AM
[2020-08-22 00:57] LABS: AMPHETAMINES LEVEL URINE POSITIVE (NEGATIVE); BARBITURATES URINE NEGATIVE (NEGATIVE); BENZODIAZEPINES URINE NEGATIVE (NEGATIVE); CANNABINOIDS URINE NEGATIVE (NEGATIVE); COCAINE METABOLITE URINE NEGATIVE (NEGATIVE); METHADONE URINE NEGATIVE (NEGATIVE); OPIATES URINE NEGATIVE (NEGATIVE); PHENCYCLIDINE URINE NEGATIVE (NEGATIVE)
[2020-08-22] MEDS ORDERED: HumaLOG INSULIN (NovoLOG) PER UNIT SC STA (01:23)
[2020-08-22] MEDS ORDERED: NS 500 ML IV ONE (01:25)
[2020-08-22 01:29] LABS: ERYTHROCYTE SEDIMENTATION RATE 63 mm/hr (0-20)
--- NOTE | 2020-08-22 01:36 | REPVR ---
PROCEDURE INFORMATION: Exam: XR Right Foot Exam date and time: 08/22/2020 12:45 AM Age: 55 years old Clinical indication: Pain; Foot; Right; Patient HX: Great toe infection? ; Additional info: Great toe discoloration TECHNIQUE: Imaging protocol: XR Right foot. Views: 1 or 2 views. COMPARISON: No relevant prior studies available. FINDINGS: Bones/joints: Osteopenia. No radiographic evidence of acute fracture or dislocation. Alignment anatomic. Mild degenerative changes. No erosive or destructive changes. No lytic or blastic lesion. Plantar calcaneal spur. Soft tissues: Soft tissue swelling about the great toe with questionable ulceration abutting the distal phalanx. IMPRESSION: Soft tissue swelling about the great toe with questionable ulceration abutting the distal phalanx. Electronically signed by: Juan Antonio Latham On 08/22/2020 01:36:23 AM
[2020-08-22] MEDS ORDERED: AUGMENTIN 875 MG TAB PO ONE (02:50)
[2020-08-22] MEDS ORDERED: AUGM875T28 PO (02:52)
[2020-08-22] MEDS ORDERED: CEFD300CAP PO (02:55)
[2020-08-22 03:00] VITALS: BP 128/73
== END 2020-08-22 03:56 | disposition home or self-care (01) ==
LOC: M ED 23:00
DX: S02.42XA Fracture of alveolus of maxilla, initial encounter for closed fracture (principal); S02.600A Fracture of unspecified part of body of mandible, unspecified side, initial encounter for closed fracture; S03.2XXA Dislocation of tooth, initial encounter; S02.5XXA Fracture of tooth (traumatic), initial encounter for closed fracture; M79.674 Pain in right toe(s); M54.2 Cervicalgia; Y00.XXXA Assault by blunt object, initial encounter; Y92.9 Unspecified place or not applicable; Y93.9 Activity, unspecified; Y99.9 Unspecified external cause status; E11.9 Type 2 diabetes mellitus without complications; M85.88 Other specified disorders of bone density and structure, other site; M48.02 Spinal stenosis, cervical region; M25.78 Osteophyte, vertebrae; I11.0 Hypertensive heart disease with heart failure; J44.9 Chronic obstructive pulmonary disease, unspecified; F17.200 Nicotine dependence, unspecified, uncomplicated; Z88.8 Allergy status to other drugs, medicaments and biological substances; Z79.899 Other long term (current) drug therapy

== ENCOUNTER 2020-09-01 13:26 | Emergency (ER) | payer OTHER ==
[~2020-09-01] VITALS: Ht 188 cm; Wt 130.0 kg
[~2020-09-01 13:26] MED LIST changes: +AUGM875T28 PO; +CEFD300CAP PO
[2020-09-01] MEDS ORDERED: KETOROLAC 30 MG/ML 1ML VIAL IV ONE (13:40)
[2020-09-01] MEDS ORDERED: CYCLOBENZAPRINE 10MG TABLET PO ONE (13:40)
[2020-09-01 14:19] LABS: BASO % 0.5 % (0.0-1.0); EOS % 0.4 % (0.0-3.0); HEMATOCRIT 35.3 % (42.0-52.0); HEMOGLOBIN 11.3 g/dl (13.5-17.5); LYMPH # 2.5 10^3/uL (1.5-5.0); MEAN CORPUSCULAR HEMOGLOBIN 27.4 pg (27.0-33.0); MEAN CORPUSCULAR VOLUME 85.5 fl (80.0-96.0); MONO # 0.5 10^3/uL (0.0-0.8); MONO % 6.4 % (2.0-8.0); NEUTROPHILS # 5.4 10^3/uL (1.5-8.5); NEUTROPHILS % 63.5 % (36.0-66.0); PLATELET COUNT, AUTOMATED 344 10^3/uL (150-450); RED BLOOD COUNT 4.13 10^6/uL (4.30-6.10); WHITE BLOOD COUNT 8.5 10^3/uL (4.0-10.0)
[2020-09-01 14:41] LABS: BLOOD UREA NITROGEN 10 MG/DL (7-18); CARBON DIOXIDE LEVEL 33 MEQ/L (21-32); CHLORIDE LEVEL 101 MEQ/L (98-107); CREATININE FOR GFR 1.21 MG/DL (0.70-1.30); GLOMERULAR FILTRATION RATE > 60.0 (>56); GLUCOSE, FASTING 142 MG/DL (70-100); POTASSIUM SERUM 4.3 MEQ/L (3.5-5.1); SODIUM LEVEL 136 MEQ/L (136-145)
[2020-09-01] MEDS ORDERED: CYCL-707 PO (14:58)
[2020-09-01 16:00] VITALS: BP 162/69
[2020-09-02] MEDS ORDERED: CYCL-707 PO (21:14)
[2020-09-02] MEDS ORDERED: GLIP10TA18 PO (21:34)
== END 2020-09-01 16:01 | disposition home or self-care (01) ==
LOC: M ED 13:26 → EDBD 13:26 → M ED 16:01
DX: M54.5 Low back pain (principal); E11.9 Type 2 diabetes mellitus without complications; I10 Essential (primary) hypertension; J44.9 Chronic obstructive pulmonary disease, unspecified; F17.200 Nicotine dependence, unspecified, uncomplicated; Z88.8 Allergy status to other drugs, medicaments and biological substances
CPT/HCPCS: 80048; 85025; 93041; 96374; 99284; J1885

== ENCOUNTER 2020-09-02 20:48 | Inpatient (IN) | payer OTHER ==
[~2020-09-02] VITALS: Ht 188 cm; Wt 126.3 kg
[~2020-09-02 20:48] MED LIST changes: +CYCL-707 PO
[2020-09-02] MEDS ORDERED: VANCOMYCIN HCL 1,000 MG in IV FLUID PLACE HOLDER 1 EA IV ONE (20:55)
[2020-09-02] MEDS ORDERED: oxyCODONE 5MG TAB PO ONE (20:55)
[2020-09-02] MEDS ORDERED: AMPICILLIN SOD/SULBACTAM SOD 3 GM in D5W MINI-BAG PLUS 100 ML IV ONE (20:55)
[2020-09-02] MEDS: DOCUSATE SODIUM 100MG CAPSULE PO SCH (21:00)
[2020-09-02] MEDS ORDERED: NS 1,000 ML IV ONE (21:10)
[2020-09-02] MEDS ORDERED: CYCL-707 PO (21:14)
[2020-09-02] MEDS ORDERED: VANCOMYCIN HCL 1,000 MG, VIAL MATE ADAPTER 1 EACH in NS 250 ML IV ONE (21:30)
[2020-09-02] MEDS ORDERED: GLIP10TA18 PO (21:34)
[2020-09-02 22:00] LABS: HEMATOCRIT 32.8 % (42.0-52.0); HEMOGLOBIN 10.7 g/dl (13.5-17.5); MEAN CORPUSCULAR HEMOGLOBIN 27.7 pg (27.0-33.0); MEAN CORPUSCULAR HGB CONC 32.6 g/dl (32.0-36.5); PLATELET COUNT, AUTOMATED 329 10^3/uL (150-450); RED BLOOD COUNT 3.86 10^6/uL (4.30-6.10)
--- NOTE | 2020-09-02 22:07 | REPVR ---
PROCEDURE INFORMATION: Exam: XR Chest Exam date and time: 09/02/2020 9:28 PM Age: 55 years old Clinical indication: Other: Sepsis TECHNIQUE: Imaging protocol: XR of the chest. Views: 1 view. COMPARISON: CR PORTABLE CHEST X-RAY 08/21/2020 11:40 PM FINDINGS: Lungs: There is decreased inflation of the lungs. There are no interval infiltrates. Pleural spaces: Unremarkable. No pleural effusion. No pneumothorax. Heart/Mediastinum: The heart and mediastinum are unchanged. Bones/joints: Unremarkable. Soft tissues: There are moderately generous overlying soft tissues. Other findings: Persistent lordotic projection. IMPRESSION: Stable negative poor inspiratory chest since 08/21/2020. Electronically signed by: Fredi Ashby On 09/02/2020 22:08:22 PM
--- NOTE | 2020-09-02 22:07 | REPVR ---
PROCEDURE INFORMATION: Exam: XR Right Foot Exam date and time: 09/02/2020 9:28 PM Age: 55 years old Clinical indication: Pain; Toes; Right; Additional info: Great toe infection TECHNIQUE: Imaging protocol: XR Right foot. Views: 3 or more views. COMPARISON: CR Foot, Ap, Lat RIGHT 08/22/2020 12:55 AM FINDINGS: Bones/joints: Increased lucency of the distal aspect of the distal phalanx suggesting early erosive change or osteomyelitis. Mild inferior calcaneal spurring. Soft tissues: Ulceration on the great toe soft tissue swelling of the toe. Soft tissue swelling of the foot which is particularly notable distally along the dorsum. IMPRESSION: 1. Soft tissue swelling of the great toe and distal foot with great toe ulceration distally. 2. Interval erosive or destructive change involving the distal aspect of the distal phalanx of the great toe since 08/22/2020 consistent with osteomyelitis. Electronically signed by: Fredi Ashby On 09/02/2020 22:07:13 PM
--- NOTE | 2020-09-02 22:14 | REPVR ---
PROCEDURE INFORMATION: Exam: US Duplex Right Lower Extremity Veins, Limited Exam date and time: 09/02/2020 10:04 PM Age: 55 years old Clinical indication: Pain; Leg, lower; Right; Additional info: Right calf pain in setting of infection, eval for dvt TECHNIQUE: Imaging protocol: Real-time Duplex ultrasound of the Right Lower Extremity with 2-D dawkins scale, color Doppler flow and spectral waveform analysis with image documentation. Limited exam was focused on the right lower extremity veins. COMPARISON: No relevant prior studies available. FINDINGS: Right deep veins: Unremarkable. The common femoral, femoral, proximal profunda femoral and popliteal veins are patent without thrombus. Normal Doppler waveforms. Normal compressibility and/or augmentation response. Right superficial veins: Unremarkable. Saphenofemoral junction is patent without thrombus. Soft tissues: Unremarkable. IMPRESSION: Negative right lower extremity venous duplex exam without evidence of deep venous thrombosis. Electronically signed by: Fredi Ashby On 09/02/2020 22:14:57 PM
[2020-09-02] MEDS ORDERED: GLUCAGON INJ 1MG VIAL SC PRN (22:20)
[2020-09-02] MEDS ORDERED: DEXTROSE 50% 50 ML SYRINGE IV PRN (22:20)
[2020-09-02] MEDS ORDERED: MAALOX 30 ML SUSP *UDC PO PRN (22:20)
[2020-09-02] MEDS ORDERED: MOM 30ML SUSPENSION UDC PO PRN (22:20)
[2020-09-02] MEDS ORDERED: GLUCOSE 4GM CHEW TABLET PO PRN (22:20)
--- NOTE | 2020-09-02 22:33 | HPEPDOC ---
[facility] Medical History & Physical Date of Admission Sep 02, 2020 Date of Service: Sep 02, 2020 History and Physical CHIEF COMPLAINT: Right big toe pain HISTORY OF PRESENT ILLNESS: 55-year-old male history of diabetes and hypertension and COPD presents because of worsening pain in his right big toe over the past 3 days. He tells me he's had an ulcer for a long time and his foot and doesn't typically see doctors for follow-up but he's noticed worsening pain in the affected foot feels like throbbing radiating up his leg he denies any pain elsewhere says otherwise he feels very well he denies any chest pain shortness of breath abdominal pain dysuria or lower extremity swelling. He denies any fevers or chills. Podiatry Dr. Zhou was contacted from the emergency department and will see the patient in the morning he'll be admitted for observation with IV antibiotics. PAST MEDICAL/SURGICAL HISTORY: Olj-nbagvji-cthyqdeks diabetes Hypertension COPD Vision impairment blind in left eye Tobacco use SOCIAL HISTORY: Denies alcohol use Endorses smoking half a pack per day for about 30 years doesn't want nicotine patch Denies illicit drug use FAMILY HISTORY: Reviewed and none contributory to this admission ALLERGIES: Please see below. REVIEW OF SYSTEMS: 10 point review of systems complete all negative otherwise stated in HPI HOME MEDICATIONS: Please see below. PHYSICAL EXAMINATION: Constitutional: Awake and alert, in no apparent distress, blind left eye, disheveled with very poor hygiene has bed bugs ENT: Sclera are clear. Respiratory: Lungs CTA bilaterally. No respiratory distress. Cardiovascular: Regular rate and rhythm Gastrointestinal: Abdomen is soft, non distended, non tender Musculoskeletal: Dependent lower extremity edema Neurologic: No focal neurological deficit. Mental Status: A&O x3, normal affect Skin: Right big toe has a deep unstageable ulcer with maceration of the skin around it and slight erythema LABORATORY DATA: See below. IMAGING: See chart MICROBIOLOGY: Please see below. ASSESSMENT/PLAN 55-year-old male known diabetic with poor compliance and follow-up presents with right big toe pain affecting a diabetic ulcer with macerated skin admitted for evaluation by podiatry in the morning will receive IV antiemetics. # Right big toe pain: Appears to have a diabetic ulcer with an unstageable eschar and maceration of the skin around. Pain control with Tylenol. Blood cultures. No leukocytosis no fever. IV Unasyn and vancomycin. Podiatry consulted (Dr Zhou) will see patient in the morning. Imaging results pending. # Hypertension: Continue home meds. Monitor and titrate # DM: ISS. Frequent Accu-Cheks. Hypoglycemic precautions. 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 Continue home medications. # Schizophrenia: Continue home meds follow-up with psychiatry outpatient # HFpEF: Not in exacerbation. Continue home medications. Follow-up with PCP. # DVT prophylaxis: Heparin A Yousef Hospitalist Vital Signs Vital Signs Date Time Temp Pulse Resp B/P (MAP) Pulse Ox O2 Delivery O2 Flow Rate FiO2 09/02/20 22:04 18 Laboratory Data Labs 24H Laboratory Tests 2 09/02/20 21:54: Nucleated Red Blood Cells % (auto) 0.0 CBC/BMP Laboratory Tests 09/02/20 21:54 Microbiology Microbiology 09/02/20 Blood Culture, Received Pending Home Medications Scheduled Dulaglutide (Trulicity) 0.75 Mg/0.5 Ml Pen.injctr, 0.75 MG SC 1XWK MONDAYS Glipizide (Glipizide ER) 10 Mg Tab.er.24, 10 MG PO DAILY Lisinopril (Lisinopril) 20 Mg Tablet, 20 MG PO DAILY Meloxicam (Meloxicam) 7.5 Mg Tablet, 7.5 MG PO DAILY Metformin HCl (Metformin HCl) 1,000 Mg Tab, 1,000 MG PO BID Paliperidone Palmitate (Invega Sustenna) 234 Mg/1.5 Ml Syringe, 234 MG IM ONCE for Antipsychotic Next Dose Due 08/28/20 Quetiapine Fumarate (Seroquel) 300 Mg Tablet, 300 MG PO QHS Trazodone HCl (Trazodone HCl) 150 Mg Tablet, 300 MG PO QHS Scheduled PRN Cyclobenzaprine HCl (Cyclobenzaprine HCl) 10 Mg Tablet, 10 MG PO TID PRN for MUSCLE SPASMS Allergies Coded Allergies: haloperidol (Verified Adverse Reaction, Unknown, unknown, 07/27/20) Per brother, there was a reaction in the past the care home. He was unable to describe the reaction. A-FIB/CHADSVASC A-FIB History Current/History of A-Fib/PAF?: No YENI VU MD Sep 02, 2020 22:32
[2020-09-02] MEDS ORDERED: CYCLOBENZAPRINE 10MG TABLET PO PRN (22:35)
[2020-09-02 22:38] LABS: ALBUMIN 2.7 GM/DL (3.2-5.2); ALT/SGPT 17 U/L (12-78); BILIRUBIN,TOTAL 0.4 MG/DL (0.2-1.0); BLOOD UREA NITROGEN 11 MG/DL (7-18); CALCIUM LEVEL 8.4 MG/DL (8.5-10.1); CARBON DIOXIDE LEVEL 30 MEQ/L (21-32); CHLORIDE LEVEL 101 MEQ/L (98-107); CK-MB VALUE MASS 1.9 NG/ML (<3.6); CPK CREATINE PHOSPHOKINASE 206 U/L (39-308); CREATININE FOR GFR 1.29 MG/DL (0.70-1.30); GLOMERULAR FILTRATION RATE > 60.0 (>56); GLUCOSE, FASTING 238 MG/DL (70-100); MB/CK RELATIVE INDEX 0.92 (< OR =4); POTASSIUM SERUM 3.9 MEQ/L (3.5-5.1); SODIUM LEVEL 138 MEQ/L (136-145); TOTAL PROTEIN 7.1 GM/DL (6.4-8.2); TROPONIN I < 0.02 NG/ML (< 0.10)
[2020-09-02 22:46] LABS: RSV AMPLIFICATION NEGATIVE (NEGATIVE)
[2020-09-02] MEDS ORDERED: NS 1,000 ML IV SCH (22:50)
[2020-09-03 00:32] VITALS: BP 178/101
[2020-09-03] MEDS: traZODone 50 MG TAB PO SCH ×2 (00:58→21:07)
[2020-09-03] MEDS: QUEtiapine FUMARATE 100 MG TAB PO SCH ×2 (00:59→21:07)
[2020-09-03] MEDS: VANCOMYCIN HCL 1,000 MG, VIAL MATE ADAPTER 1 EACH in NS 250 ML IV SCH ×3 (01:12→18:37)
[2020-09-03] MEDS: HumaLOG INSULIN (NovoLOG) PER UNIT SC SCH ×4 (01:13→17:26)
[2020-09-03] MEDS: AMPICILLIN SOD/SULBACTAM SOD 1.5 GM in D5W MINI-BAG PLUS 50 ML IV SCH ×4 (03:49→21:07)
[2020-09-03] MEDS: MORPHINE 2 MG/ML 1ML VIAL (J2270) IV PRN (04:17)
[2020-09-03 06:00] VITALS: BP 150/99
[2020-09-03 06:58] LABS: HEMATOCRIT 38.1 % (42.0-52.0); HEMOGLOBIN 12.1 g/dl (13.5-17.5); MEAN CORPUSCULAR HEMOGLOBIN 27.2 pg (27.0-33.0); MEAN CORPUSCULAR HGB CONC 31.8 g/dl (32.0-36.5); MEAN CORPUSCULAR VOLUME 85.6 fl (80.0-96.0); PLATELET COUNT, AUTOMATED 244 10^3/uL (150-450); RED BLOOD COUNT 4.45 10^6/uL (4.30-6.10); WHITE BLOOD COUNT 6.2 10^3/uL (4.0-10.0)
[2020-09-03 07:23] LABS: BLOOD UREA NITROGEN 8 MG/DL (7-18); CALCIUM LEVEL 8.2 MG/DL (8.5-10.1); CARBON DIOXIDE LEVEL 27 MEQ/L (21-32); CHLORIDE LEVEL 106 MEQ/L (98-107); CREATININE FOR GFR 1.05 MG/DL (0.70-1.30); GLOMERULAR FILTRATION RATE > 60.0 (>56); GLUCOSE, FASTING 133 MG/DL (70-100); MAGNESIUM LEVEL 1.8 MG/DL (1.8-2.4); POTASSIUM SERUM 4.3 MEQ/L (3.5-5.1); SODIUM LEVEL 138 MEQ/L (136-145)
[2020-09-03] MEDS: DOCUSATE SODIUM 100MG CAPSULE PO SCH ×2 (09:03→21:07)
[2020-09-03] MEDS: HEPARIN SOD (PORCINE) 5000UNITS/ML 1ML VIAL/SYRINGE SC SCH ×2 (09:03→21:06)
--- NOTE | 2020-09-03 10:51 | ECGEPIP ---
[facility] - ED Test Date: 2020-09-02 Pat Name: BRIGID FLORES Department: Room: [place] [address] Gender: Male Clerk Cashier: DEEPA : 1965 Requested By: Christiano Inman Order Number: [id number] Reading MD: Reji Simons Measurements Intervals [place] Rate: 102 P: 49 KS: 166 QRS: 7 QRSD: 80 T: 24 QT: 352 QTc: 458 Interpretive Statements Sinus tachycardia POOR R WAVE PROGRESSION NSTTW ABNORMALITY(S) SIMILAR TO 08/19/20 Electronically Signed on 09-03-2020 10:51:18 EDT by Reji Simons
--- NOTE | 2020-09-03 12:35 | CR ---
CONSULTATION DATE: 09/03/2020 REASON FOR CONSULTATION: Right hallux ulceration HISTORY OF PRESENT ILLNESS: Akbar Ulloa is a 55-year-old gentleman who is admitted through the emergency room (ER) due to worsening right big toe pain. He is not sure how long the wound has been there, but it has been worsened over the last three days. PAST MEDICAL HISTORY: Significant for: 1. Diabetes. 2. Hypertension. 3. Chronic obstructive pulmonary disease (COPD). 4. Blindness, left eye. SOCIAL HISTORY: Positive for tobacco use. Denies alcohol use. FAMILY HISTORY: Noncontributory. ALLERGIES: HALOPERIDOL. REVIEW OF SYSTEMS: He denies nausea, vomiting, fever or chills. LABORATORY DATA: Labs are reviewed. WBC 6.2. Lactic acid on admission was 2.5. IMAGING STUDIES: Foot x-ray shows erosive changes at the distal phalanx consistent with osteomyelitis. PHYSICAL EXAMINATION: VITAL SIGNS: He has been afebrile since admission. LOWER EXTREMITY EXAMINATION: There is erythema and edema of the right foot. There is an ulceration to the right hallux with necrotic tissue and positive probe to bone. ASSESSMENT: This is a 55-year-old diabetic male with right hallux osteomyelitis. PLAN: Discussed results with patient. Initially, he was reticent to have the toe removed. A wound debridement was performed at bedside using a #15 blade and dermal curette. Bone was easily palpated with necrotic appearance. With further discussion, patient was willing to have the toe amputated. This will be scheduled for tomorrow. He is to be nothing by mouth (NPO) at midnight.
[2020-09-03] MEDS ORDERED: PALIPERIDONE PALMITATE 234MG/1.5ML INJ (INVEGA)(FREE PSY INPT ONLY) IM ONE (14:20)
[2020-09-03 14:38] LABS: C REACTIVE PROTEIN QUANTITATIV 5.75 MG/DL (0.00-0.30)
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
[2020-09-03] MEDS: LEVEMIR (INSULIN DETEMIR) 1 UNITS/0.01ML SC SCH (21:06)
[2020-09-03 22:00] VITALS: BP 125/94
[2020-09-04] VITALS (8 sets, daily range): BP systolic 116–194; BP diastolic 58–102
[2020-09-04] MEDS: HumaLOG INSULIN (NovoLOG) PER UNIT SC SCH ×4 (00:15→18:28)
[2020-09-04] MEDS: VANCOMYCIN HCL 1,000 MG, VIAL MATE ADAPTER 1 EACH in NS 250 ML IV SCH ×4 (02:30→21:35)
[2020-09-04] MEDS: AMPICILLIN SOD/SULBACTAM SOD 1.5 GM in D5W MINI-BAG PLUS 50 ML IV SCH ×4 (03:49→22:42)
[2020-09-04] MEDS: ACETAMINOPHEN TAB 650MG DOSE (2X325MG) PO PRN ×2 (03:49→18:32)
[2020-09-04] MEDS: DOCUSATE SODIUM 100MG CAPSULE PO SCH ×2 (08:48→21:36)
[2020-09-04] MEDS: HEPARIN SOD (PORCINE) 5000UNITS/ML 1ML VIAL/SYRINGE SC SCH ×2 (08:49→21:35)
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
[2020-09-04] MEDS ORDERED: propofoL 200 MG/20 ML VIAL As Ordered ONE (11:35)
[2020-09-04] MEDS ORDERED: LIDOCAINE 2% 100MG/5ML SDV (FOR ANES.) As Ordered ONE (11:35)
[2020-09-04] MEDS ORDERED: fentaNYL 100 MCG/2 ML INJECTION (J3010) As Ordered ONE (11:36)
[2020-09-04] MEDS ORDERED: MIDAZOLAM INJ 2MG/2ML VIAL (J2250 PER 1MG) As Ordered ONE (11:36)
[2020-09-04] MEDS ORDERED: BUPIVACAINE HCL 0.5% 10ML VIAL As Ordered ONE (11:41)
[2020-09-04] MEDS ORDERED: LIDOCAINE 1% MDV 20ML VIAL As Ordered ONE (11:41)
[2020-09-04] MEDS ORDERED: LR 1,000 ML IV SCH (13:10)
[2020-09-04] MEDS ORDERED: ONDANSETRON 4MG/2ML VIAL IV PRN (13:10)
[2020-09-04] MEDS ORDERED: PERCOCET 5MG/325MG TAB PO PRN (13:10)
[2020-09-04] MEDS ORDERED: fentaNYL 100 MCG/2 ML INJECTION (J3010) IV PRN (13:10)
[2020-09-04] MEDS ORDERED: amLODIPine 5 MG TAB PO ONE (14:30)
[2020-09-04] MEDS: LEVEMIR (INSULIN DETEMIR) 1 UNITS/0.01ML SC SCH (21:00)
[2020-09-04] MEDS: traZODone 50 MG TAB PO SCH (21:36)
[2020-09-04] MEDS: QUEtiapine FUMARATE 100 MG TAB PO SCH (21:36)
[2020-09-05] MEDS: HumaLOG INSULIN (NovoLOG) PER UNIT SC SCH ×3 (00:28→12:00)
[2020-09-05] MEDS: ACETAMINOPHEN TAB 650MG DOSE (2X325MG) PO PRN ×2 (00:29→09:29)
[2020-09-05 02:00] VITALS: BP 123/75
[2020-09-05] MEDS: AMPICILLIN SOD/SULBACTAM SOD 1.5 GM in D5W MINI-BAG PLUS 50 ML IV SCH ×3 (03:07→17:19)
[2020-09-05] MEDS: MORPHINE 2 MG/ML 1ML VIAL (J2270) IV PRN (03:36)
[2020-09-05] MEDS: VANCOMYCIN HCL 1,000 MG, VIAL MATE ADAPTER 1 EACH in NS 250 ML IV SCH (04:55)
[2020-09-05 06:00] VITALS: BP 168/92
[2020-09-05 06:26] LABS: BASO # 0.1 10^3/uL (0.0-0.2); BASO % 0.8 % (0.0-1.0); EOS # 0.1 10^3/uL (0.0-0.5); EOS % 2.4 % (0.0-3.0); HEMATOCRIT 33.6 % (42.0-52.0); HEMOGLOBIN 10.4 g/dl (13.5-17.5); LYMPH % 50.2 % (24.0-44.0); MEAN CORPUSCULAR HEMOGLOBIN 26.6 pg (27.0-33.0); MEAN CORPUSCULAR VOLUME 85.9 fl (80.0-96.0); MONO # 0.5 10^3/uL (0.0-0.8); MONO % 7.8 % (2.0-8.0); NEUTROPHILS # 2.3 10^3/uL (1.5-8.5); NEUTROPHILS % 38.6 % (36.0-66.0); PLATELET COUNT, AUTOMATED 289 10^3/uL (150-450); RED BLOOD COUNT 3.91 10^6/uL (4.30-6.10); WHITE BLOOD COUNT 5.9 10^3/uL (4.0-10.0)
[2020-09-05 06:44] LABS: BLOOD UREA NITROGEN 9 MG/DL (7-18); CALCIUM LEVEL 8.4 MG/DL (8.5-10.1); CARBON DIOXIDE LEVEL 31 MEQ/L (21-32); CHLORIDE LEVEL 106 MEQ/L (98-107); CREATININE FOR GFR 1.07 MG/DL (0.70-1.30); GLOMERULAR FILTRATION RATE > 60.0 (>56); GLUCOSE, FASTING 108 MG/DL (70-100); POTASSIUM SERUM 4.5 MEQ/L (3.5-5.1); SODIUM LEVEL 141 MEQ/L (136-145)
[2020-09-05 08:55] LABS: C REACTIVE PROTEIN QUANTITATIV 3.14 MG/DL (0.00-0.30)
[2020-09-05] MEDS: DOCUSATE SODIUM 100MG CAPSULE PO SCH (09:28)
[2020-09-05 09:29] VITALS: BP 168/92
[2020-09-05] MEDS: HEPARIN SOD (PORCINE) 5000UNITS/ML 1ML VIAL/SYRINGE SC SCH (09:30)
[2020-09-05 09:32] LABS: ERYTHROCYTE SEDIMENTATION RATE 49 mm/hr (0-20)
[2020-09-05 10:00] VITALS: BP 171/79
[2020-09-05] MEDS ORDERED: ALCOPAD25 TOP (11:46)
[2020-09-05] MEDS ORDERED: BLOOKIT21 XX (11:46)
[2020-09-05] MEDS ORDERED: LANC30MI XX (11:46)
[2020-09-05] MEDS ORDERED: INSU1MIS20 SC (11:46)
[2020-09-05] MEDS ORDERED: BASA100I SC (11:46)
[2020-09-05] MEDS ORDERED: PEN1MIS21 SC (11:46)
[2020-09-05] MEDS ORDERED: GLUC1TES2 XX (11:46)
[2020-09-05] MEDS ORDERED: AUGM875T28 PO (11:50)
[2020-09-05 14:00] VITALS: BP 179/83
--- NOTE | 2020-09-06 18:48 | DS.PDOC ---
Discharge Summary General Date of Admission Sep 03, 2020 at 11:17 Date of Discharge 09/05/2020 Attending Physician: RJ MCKINNON MD Discharge Summary PROCEDURES PERFORMED DURING STAY: Right great toe amputation. ADMITTING DIAGNOSES: 1. Diabetic foot ulcer[osteomyelitis] 2. Glo-iqdsnuj-acrdedoix diabetes mellitus 3. Hypertension 4. COPD 5. Visual impairment blind in left eye following TBI 6. Tobacco use. DISCHARGE DIAGNOSES: 1. Status post right great toe amputation due to diabetic foot ulcer. 2. Sxv-cpjwtzi-zbelkutqs diabetes mellitus 3. Hypertension 4. COPD 5. Visual impairment blind in left eye following TBI 6. Tobacco use. COMPLICATIONS/CHIEF COMPLAINT: Diabetic Ulcer Of Right Foot. HISTORY OF PRESENT ILLNESS: 55-year-old male with history of diabetes and hype rtension and COPD presented with worsening right big toe pain for 3 days to the ED. He reports to be having calming radiating pain in his left and denies having any fever, chills, shortness of breath. HOSPITAL COURSE: He was admitted to the hospital military aircraft designer Dr. Zhou was consulted and was decided to take him to OR for amputation of is right toe. He was diagnosed with osteomyelitis and was given IV antibiotics as well. His initial ESR and CRP were elevated following the surgery the repeat ESR and CRP are trending down he is discharged on oral antibiotics. DISCHARGE MEDICATIONS: Please see below. ALLERGIES: Please see below. PHYSICAL EXAMINATION ON DISCHARGE: VITAL SIGNS: Please see below. Constitutional: Awake and alert, in no apparent distress, blind left eye, disheveled with very poor hygiene has bed bugs ENT: Sclera are clear. Respiratory: Lungs CTA bilaterally. No respiratory distress. Cardiovascular: Regular rate and rhythm Gastrointestinal: Abdomen is soft, non distended, non tender Musculoskeletal: Dependent lower extremity edema Neurologic: No focal neurological deficit. Mental Status: A&O x3, normal affect Skin: Amputation of the right big toe due to osteomyelitis. LABORATORY DATA: Please see below. IMAGING: Foot x-ray done on 09/02/2020 reported as 1. Soft tissue swelling of the great toe and distal foot with great toe ulceration distally. 2. Interval erosive or destructive change involving the distal aspect of the distal phalanx of the great toe since 08/22/2020 consistent with osteomyelitis. Vascular ultrasound done on 09/02/2020: Reported as negative right lower extremity venous Doppler exam without evidence of deep venous thrombosis. Chest x-ray done on 09/03/2019: Reported as stable and negative poor inspiratory chest since 07/25/2020 PROGNOSIS: Good ACTIVITY: [As tolerated]. DIET: Consistent carbohydrate diet DISCHARGE PLAN: Initially thought of putting patient on insulin assess hemoglobin done in June was 13 but after conversation with case operator he is only going home on his regular medication list. DISPOSITION: Home, Self-Care. DISCHARGE INSTRUCTIONS: 1. Please follow with PCP in one week 2. Please follow with Dr. Zhou outpatient. 3. Patient needs to get insulin outpatient when he follow-up with his PCP as is his hemoglobin A1c is 13. ITEMS TO FOLLOWUP ON ON OUTPATIENT: 1. Please follow with PCP in one week 2. Please follow with Dr. Zhou outpatient. DISCHARGE CONDITION: [Stable]. TIME SPENT ON DISCHARGE: Greater than 30 minutes. Vital Signs/I&Os Vital Signs Date Time Temp Pulse Resp B/P (MAP) Pulse Ox O2 Delivery O2 Flow Rate FiO2 09/05/20 14:00 97.3 87 20 179/83 (115) 100 Room Air I&O- Last 24 Hours up to 6 AM 09/06/20 06:00 Intake Total 1980 ml Output Total 180 ml Balance 1800 ml Microbiology Microbiology 09/02/20 Blood Culture - Preliminary, Resulted No Growth after 72 hours. All specime... 09/02/20 Blood Culture - Preliminary, Resulted No Growth after 72 hours. All specime... Discharge Medications Scheduled Amoxicillin/Potassium Clav (Augmentin 875-125 Tablet) 1 Each Tablet, 1 TAB PO BID for diabetic foot ulcer s/p amputa Blood Sugar Diagnostic (Advanced Glucose Test Strips) 1 Each Strip, 1 STRIP XX ASDIRECTED Dulaglutide (Trulicity) 0.75 Mg/0.5 Ml Pen.injctr, 0.75 MG SC 1XWK, (Reported) MONDAYS Glipizide (Glipizide ER) 10 Mg Tab.er.24, 10 MG PO DAILY, (Reported) Lisinopril (Lisinopril) 20 Mg Tablet, 20 MG PO DAILY, (Reported) Meloxicam (Meloxicam) 7.5 Mg Tablet, 7.5 MG PO DAILY, (Reported) Metformin HCl (Metformin HCl) 1,000 Mg Tab, 1,000 MG PO BID, (Reported) Paliperidone Palmitate (Invega Sustenna) 234 Mg/1.5 Ml Syringe, 234 MG IM ONCE for Antipsychotic Next Dose Due 08/28/20 Quetiapine Fumarate (Seroquel) 300 Mg Tablet, 300 MG PO QHS, (Reported) Trazodone HCl (Trazodone HCl) 150 Mg Tablet, 300 MG PO QHS, (Reported) Scheduled PRN Cyclobenzaprine HCl (Cyclobenzaprine HCl) 10 Mg Tablet, 10 MG PO TID PRN for MUSCLE SPASMS, (Reported) Allergies Coded Allergies: haloperidol (Verified Adverse Reaction, Unknown, unknown, 07/27/20) Per brother, there was a reaction in the past the custodial. He was unable to describe the reaction. GME ATTESTATION GME ATTESTATION My faculty preceptor for this patient encounter was physically present during the encounter and was fully available. All aspects of the patient interview, examination, medical decision making process, and medical care plan development were reviewed and approved by the faculty preceptor. The faculty preceptor is aware and concurs with the plan as stated in the body of this note and will attest to such by his/her cosignature. ATTENDING NOTE I, Rj Mckinnon MD, have independently examined this patient and performed my own physical exam, as well as reviewed the documentation and edited where necessary. I have discussed in detail with the resident / student the findings and plan of treatment as documented by the resident / student and edited their note. I agree with their findings and treatment plan and have edited their documentation. Total time spent on this patient including coordination of care, review of chart documentation and actual patient contact is around 35 minutes Sameera Hooker MD Sep 06, 2020 18:48 RJ MCKINNON MD Sep 07, 2020 15:56
== END 2020-09-05 18:54 | disposition home health service (06) | DRG 314 ==
LOC: M ED 20:48 → M ED INP 22:19 → ENRESERV 23:09 → M MSPAV 09-03 00:32 → INTOOBSV 09-03 11:17 → OBSVTOIN 09-03 11:17 → EEVIPCON 09-03 11:17
PROVIDERS: ADMIT Family Medicine; ATTEND Internal Medicine
PROC: 0Y6P0Z0 Detachment at Right 1st Toe, Complete, Open Approach (ICD-10-PCS; principal; 2020-09-04 12:20)
DX: E11.621 Type 2 diabetes mellitus with foot ulcer (principal); I11.0 Hypertensive heart disease with heart failure; M86.171 Other acute osteomyelitis, right ankle and foot; L97.519 Non-pressure chronic ulcer of other part of right foot with unspecified severity; I50.32 Chronic diastolic (congestive) heart failure; M86.271 Subacute osteomyelitis, right ankle and foot; F20.9 Schizophrenia, unspecified; F17.200 Nicotine dependence, unspecified, uncomplicated; J44.9 Chronic obstructive pulmonary disease, unspecified; H54.8 Legal blindness, as defined in USA; Z79.899 Other long term (current) drug therapy; Z88.8 Allergy status to other drugs, medicaments and biological substances

== ENCOUNTER 2020-09-07 19:55 | Emergency (ER) | payer OTHER ==
[~2020-09-07] VITALS: Ht 188 cm; Wt 127.3 kg
[~2020-09-07 19:55] MED LIST changes: +ALCOPAD25 TOP; +BASA100I SC; +BLOOKIT21 XX; +GLUC1TES2 XX; +INSU1MIS20 SC; +LANC30MI XX; +PEN1MIS21 SC
[2020-09-08 02:01] VITALS: BP 156/98
== END 2020-09-08 03:37 | disposition home or self-care (01) ==
LOC: M ED 19:55
DX: Z48.01 Encounter for change or removal of surgical wound dressing (principal); E11.9 Type 2 diabetes mellitus without complications; I10 Essential (primary) hypertension; G47.30 Sleep apnea, unspecified; F17.200 Nicotine dependence, unspecified, uncomplicated; K21.9 Gastro-esophageal reflux disease without esophagitis; Z79.899 Other long term (current) drug therapy

== ENCOUNTER 2020-09-12 11:06 | Emergency (ER) | payer OTHER ==
[~2020-09-12] VITALS: Ht 188 cm; Wt 126.4 kg
[2020-09-12] MEDS ORDERED: KETOROLAC 60MG 2ML VIAL IM ONE (11:45)
[2020-09-12] MEDS ORDERED: ACETAMINOPHEN 325 MG TAB PO ONE (11:45)
[2020-09-12] MEDS ORDERED: ACET650T15 PO (13:57)
[2020-09-12] MEDS ORDERED: KETO10TAB PO (13:57)
[2020-09-12 14:00] VITALS: BP 150/90
== END 2020-09-12 14:01 | disposition home or self-care (01) ==
LOC: M ED 11:06
DX: G89.29 Other chronic pain (principal); M54.5 Low back pain; E11.9 Type 2 diabetes mellitus without complications; I10 Essential (primary) hypertension; K21.9 Gastro-esophageal reflux disease without esophagitis; Z88.8 Allergy status to other drugs, medicaments and biological substances; Z79.84 Long term (current) use of oral hypoglycemic drugs; Z79.899 Other long term (current) drug therapy
CPT/HCPCS: 96372; 99284; J1885

== ENCOUNTER 2020-09-15 01:51 | Inpatient (IN) | payer MEDICAID, OTHER ==
[~2020-09-15] VITALS: Ht 188 cm; Wt 120.5 kg
[~2020-09-15 01:51] MED LIST changes: +ACET650T15 PO; +KETO10TAB PO
[2020-09-15] MEDS ORDERED: diphenhydrAMINE 50MG/ML VIAL (J1200) IM ONE (01:55)
[2020-09-15] MEDS ORDERED: LORazepam 2 MG/ML VIAL IM ONE (01:55)
[2020-09-15] MEDS ORDERED: OLANZapine INTRAMUSCULAR 10MG VIAL IM ONE ×2 (01:55→02:45)
[2020-09-15 02:33] LABS: HEMATOCRIT 35.7 % (42.0-52.0); HEMOGLOBIN 11.6 g/dl (13.5-17.5); MEAN CORPUSCULAR HEMOGLOBIN 26.9 pg (27.0-33.0); MEAN CORPUSCULAR HGB CONC 32.5 g/dl (32.0-36.5); MEAN CORPUSCULAR VOLUME 82.8 fl (80.0-96.0); PLATELET COUNT, AUTOMATED 326 10^3/uL (150-450); RED BLOOD COUNT 4.31 10^6/uL (4.30-6.10); WHITE BLOOD COUNT 7.5 10^3/uL (4.0-10.0)
[2020-09-15 03:06] LABS: ACETAMINOPHEN LEVEL < 2.0 UG/ML (10.0-30.0); ALBUMIN 3.4 GM/DL (3.2-5.2); ALT/SGPT 15 U/L (12-78); BILIRUBIN,DIRECT 0.1 MG/DL (0.0-0.2); BILIRUBIN,TOTAL 0.4 MG/DL (0.2-1.0); BLOOD UREA NITROGEN 7 MG/DL (7-18); CALCIUM LEVEL 8.3 MG/DL (8.5-10.1); CARBON DIOXIDE LEVEL 28 MEQ/L (21-32); CHLORIDE LEVEL 97 MEQ/L (98-107); CREATININE FOR GFR 1.12 MG/DL (0.70-1.30); ETHYL ALCOHOL (ETHANOL) < 0.003 % (0.000-0.010); GLOMERULAR FILTRATION RATE > 60.0 (>56); GLUCOSE, FASTING 159 MG/DL (70-100); POTASSIUM SERUM 3.6 MEQ/L (3.5-5.1); SALICYLATE LEVEL < 1.7 MG/DL (5.0-30.0); SODIUM LEVEL 134 MEQ/L (136-145); TOTAL PROTEIN 8.3 GM/DL (6.4-8.2)
[2020-09-15 06:14] LABS: AMPHETAMINES LEVEL URINE NEGATIVE (NEGATIVE); BARBITURATES URINE NEGATIVE (NEGATIVE); BENZODIAZEPINES URINE NEGATIVE (NEGATIVE); CANNABINOIDS URINE NEGATIVE (NEGATIVE); COCAINE METABOLITE URINE NEGATIVE (NEGATIVE); METHADONE URINE NEGATIVE (NEGATIVE); OPIATES URINE NEGATIVE (NEGATIVE); PHENCYCLIDINE URINE NEGATIVE (NEGATIVE)
[2020-09-15] MEDS ORDERED: LORazepam 2 MG TAB PO ONE (10:25)
[2020-09-15 10:32] LABS: RSV AMPLIFICATION NEGATIVE (NEGATIVE)
[2020-09-15] MEDS ORDERED: BACITRACIN OINTMENT 30GM TUBE TOP PRN (12:40)
[2020-09-15] MEDS ORDERED: INVE234I IM (18:09)
[2020-09-15] MEDS ORDERED: MELO15TA28 PO (18:09)
[2020-09-15] MEDS ORDERED: ACE65ERTAB PO (18:09)
[2020-09-15] MEDS ORDERED: PATIENT COMMENT (18:13)
[2020-09-15] MEDS ORDERED: metFORMIN (GLUCOPHAGE) 1000 MG TABLET PO SCH (21:00)
[2020-09-15] MEDS ORDERED: traZODone 50 MG TAB PO SCH (21:00)
[2020-09-15] MEDS ORDERED: QUEtiapine FUMARATE 100 MG TAB PO SCH (21:00)
[2020-09-15] MEDS ORDERED: OLANZapine ORAL DISINTEGRATING TAB 5MG PO ONE (21:20)
[2020-09-16] MEDS ORDERED: glipiZIDE XL 5 MG TABCR PO SCH ×2 (09:00)
[2020-09-16] MEDS ORDERED: metFORMIN (GLUCOPHAGE) 1000 MG TABLET PO SCH (09:00)
[2020-09-16] MEDS ORDERED: CYCLOBENZAPRINE 10MG TABLET PO PRN (10:50)
[2020-09-16] MEDS ORDERED: MOM 30ML SUSPENSION UDC PO PRN (10:50)
[2020-09-16] MEDS ORDERED: MAALOX 30 ML SUSP *UDC PO PRN (10:50)
--- NOTE | 2020-09-16 11:43 | ECGEPIP ---
[facility] - ED Test Date: 2020-09-15 Pat Name: BRIGID FLORES Department: Room: [place] [address] Gender: Male Superintendent Drivers: KATHIA : [id number] Requested By: Reji Cooley Order Number: [id number] Reading MD: Magui Parnell Measurements Intervals [place] Rate: 103 P: 57 NV: 168 QRS: 11 QRSD: 74 T: 3 QT: 348 QTc: 455 Interpretive Statements Sinus tachycardia NSTTW abnormalities delayed r progression similar 09/02/20 Electronically Signed on 09-16-2020 11:43:07 EDT by Magui Parnell
[2020-09-16] MEDS: MELOXICAM (MOBIC) 7.5 MG TAB PO SCH (12:07)
[2020-09-16] MEDS: PALIPERIDONE 3 MG ER TAB (INVEGA) PO SCH (12:08)
--- NOTE | 2020-09-16 12:55 | HPEPDOC ---
[facility] Medical History & Physical Date of Admission Sep 16, 2020 Date of Service: Sep 16, 2020 Attending Physician: Magali Grove MD History and Physical MEDICAL H&P HISTORY OF PRESENT ILLNESS: Patient is a 55 y/o with PMH of schizophrenia, polysubstance abuse, alcohol abuse disorder, COPD, hypertension, diabetes mellitus, uncontrolled, diabetic ulcer of great right toe status post dictation 09/04/2020 who presented to [facility] emergency room after being found any yard. EMS and hot troopers accompanied him to the emergency room. He was irrational, delusional plus hallucinating. He had not been taking any of his home medications for some time. The patient had a recent hospitalization from 09/03/2020 through 09/05/2020 for diabetic foot ulcer and osteomyelitis when he was seen by podiatry. He was placed on outpatient antibiotics and told to follow-up with podiatry as outpatient. He returns to the emergency room claiming that he took "sophia" or bath salts. He was restless, had flight of ideas, was hearing voices. He was preaching and speaking a lot about yazdanism things, saying voices were going to kill him. He had increased agitation. The CBC was normal, LAD pressure was slightly elevated [id number] systolic. H&H was stable. UDS negative Covid negative. The patient was admitted to inpatient mental health for unspecified psychotic disorder. Medicine team was consulted due to right great toe recently being amputated and there was no knowledge of the recent amputation. The patient was extremely agitated, preaching religiously in the room loudly. He was able to be calmed down long enough for me to assess his right great toe. At the same time I assessed his right great toe also looked at the bilateral lower extremities. Although they appeared dried there does not appear to be another lesion or area of concern. I was not able to complete a full examination due to his unstable mental status. ESR, CRP, CBC and CMP were ordered and a podiatry consult will be called in to evaluate the patient once he is stable. 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 Dr. Zhou- podiatry FAMILY HISTORY: Reviewed and none contributory to this admission ALLERGIES: Please see below. CURRENT MEDICATIONS: Please see below. PHYSICAL EXAM (limited due to patient's unstable mental status) VS: Please see below GENERAL: agitated, cooperative, difficult to redirect, oriented to person EXT: Right large toe mildly bleeding, nontender, incision are still in place, does not appear increasingly swollen INTEG: findings above, lower ext dry skin, no swelling, cyanosis or clubbing LABORATORY: Please see below MICRO: None ASSESSMENT: 55-year-old AA M with PMH of schizophrenia, polysubstance abuse, alcohol abuse disorder, COPD, hypertension, uncontrolled diabetes mellitus, diabetic ulcer of great right toe status post dictation 09/04/2020 admitted to [facility] for unspecified psychotic disorder. PLAN: Unspecified psychotic disorder, hx of schizophrenia and polysubstance abuse -UDS neg ;however, drug may not show up on testing -Psychiatry to manage Right large toe diabetic foot ulcer and osteomyelitis -WBC wnl, afebrile, toe does not appear markedly swollen, incisions in place; however, slightly oozy with blood, nontender -Treated inpatient from 09/03-, underwent debridement and later amputation on 09/04/[address] Zhou (podiatry) -was treated with IV unasyn and vancomycin then, d/madisyn with antibiotics but unknown if patient completed regimen -Foot x-ray done on prior admission showed soft tissue swelling of the great toe and distal foot with great toe ulceration distally, antral erosion or destructive changes involving the distal aspect of the distal phalanx of the great toe since 08/23/2019 consistent with osteomyelitis. -Blood cultures from 09/02/2020 were negative after 24 hours. -ESR on 09/03/2020 is 52, CRP of 5 -F/u repeat inflammatory markers here, new labs -Podiatry consulted, Dr. Zhou to see DM type II, uncontrolled -Recent HbA1c 13 -C/w home meds, if needed can d/c start on levemir and ISS for coverage -Consistent carb diet, FS AC/HS Obstructive sleep apnea -Patient reported previously he had sleep study done and was prescribed CPAP. Used it only for a couple of times and says it is stopped using it as it is hard to breathe and felt suffocated when he was using it. -Was not interested recently to get reassessed COPD -Stable on RA Hypertension -c/w home meds HFpEF -Not currently in exacerbation, saturating well on RA -c/w home meds Back pain 2/2 to TBI and paraspinal in location -c/w home meds DVT px: None DISPOSITION: Thank you kindly for this consult. Will consult podiatry today and discuss case. Will see patient again in the AM. Vital Signs Vital Signs Date Time Temp Pulse Resp B/P (MAP) Pulse Ox O2 Delivery O2 Flow Rate FiO2 09/16/20 12:07 149/86 09/16/20 10:54 97.6 88 18 97 09/15/20 21:02 Room Air Home Medications Scheduled Dulaglutide (Trulicity) 0.75 Mg/0.5 Ml Pen.injctr, 0.75 MG SC 1XWK MONDAYS Glipizide (Glipizide ER) 10 Mg Tab.er.24, 10 MG PO DAILY Lisinopril (Lisinopril) 20 Mg Tablet, 20 MG PO DAILY Meloxicam (Meloxicam) 15 Mg Tablet, 15 MG PO DAILY Metformin HCl (Metformin HCl) 1,000 Mg Tab, 1,000 MG PO BID Paliperidone Palmitate (Invega Sustenna) 234 Mg/1.5 Ml Syringe, 234 MG IM QMONTH Quetiapine Fumarate (Seroquel) 300 Mg Tablet, 300 MG PO QHS Trazodone HCl (Trazodone HCl) 150 Mg Tablet, 300 MG PO QHS Scheduled PRN Acetaminophen (Acetaminophen ER) 650 Mg Tablet.er, 650 MG PO TID PRN for PAIN Cyclobenzaprine HCl (Cyclobenzaprine HCl) 10 Mg Tablet, 10 MG PO TID PRN for MUSCLE SPASMS Miscellaneous Medications [Patient Comment] UNABLE TO VERIFY MEDICATIONS WITH PATIENT, MED LIST OBTAINED FROM EXT MED HX Allergies Coded Allergies: haloperidol (Verified Adverse Reaction, Unknown, unknown, 07/27/20) Per brother, there was a reaction in the past the [facility]. He was unable to describe the reaction. A-FIB/CHADSVASC A-FIB History Current/History of A-Fib/PAF?: No Current PO Anticoag Therapy: No Age/Risk Factor Scoring CHADSVASC: CHADSVASC Response (Comments) Value Age Risk Factor Age < 65 years old 0 Gender Risk Factor Male 0 Hx of CHF Yes 1 Hx of HTN Yes 1 Hx of Stroke/TIA/or VTE No 0 Hx of Diabetes Yes 1 Hx of Vascular Disease No 0 Total 3 Treatment Treatment ordered: NONE Magali Grove MD Sep 16, 2020 12:55
[2020-09-16 13:23] LABS: BASO # 0.1 10^3/uL (0.0-0.2); BASO % 0.8 % (0.0-1.0); EOS # 0.2 10^3/uL (0.0-0.5); HEMATOCRIT 39.4 % (42.0-52.0); HEMOGLOBIN 12.7 g/dl (13.5-17.5); MEAN CORPUSCULAR HEMOGLOBIN 27.2 pg (27.0-33.0); MEAN CORPUSCULAR HGB CONC 32.2 g/dl (32.0-36.5); MEAN CORPUSCULAR VOLUME 84.4 fl (80.0-96.0); MONO # 0.5 10^3/uL (0.0-0.8); MONO % 6.7 % (2.0-8.0); NEUTROPHILS # 2.5 10^3/uL (1.5-8.5); NEUTROPHILS % 34.4 % (36.0-66.0); PLATELET COUNT, AUTOMATED 349 10^3/uL (150-450); RED BLOOD COUNT 4.67 10^6/uL (4.30-6.10); WHITE BLOOD COUNT 7.4 10^3/uL (4.0-10.0)
[2020-09-16 13:43] LABS: ERYTHROCYTE SEDIMENTATION RATE 44 mm/hr (0-20)
[2020-09-16 13:55] LABS: ALBUMIN 3.2 GM/DL (3.2-5.2); ALT/SGPT 15 U/L (12-78); BILIRUBIN,TOTAL 0.3 MG/DL (0.2-1.0); BLOOD UREA NITROGEN 8 MG/DL (7-18); C REACTIVE PROTEIN QUANTITATIV 3.04 MG/DL (0.00-0.30); CALCIUM LEVEL 8.9 MG/DL (8.5-10.1); CARBON DIOXIDE LEVEL 29 MEQ/L (21-32); CHLORIDE LEVEL 102 MEQ/L (98-107); CREATININE FOR GFR 1.27 MG/DL (0.70-1.30); GLOMERULAR FILTRATION RATE > 60.0 (>56); GLUCOSE, FASTING 212 MG/DL (70-100); SODIUM LEVEL 137 MEQ/L (136-145); TOTAL PROTEIN 7.9 GM/DL (6.4-8.2)
[2020-09-16] MEDS ORDERED: GLUCOSE 4GM CHEW TABLET PO PRN (14:35)
[2020-09-16] MEDS ORDERED: DEXTROSE 50% 50 ML SYRINGE IV PRN (14:35)
[2020-09-16] MEDS ORDERED: GLUCAGON INJ 1MG VIAL SC PRN (14:35)
[2020-09-16] MEDS: HumaLOG INSULIN (NovoLOG) PER UNIT SC SCH (21:00)
[2020-09-16] MEDS: QUEtiapine FUMARATE 100 MG TAB PO SCH (21:30)
[2020-09-16] MEDS: traZODone 100 MG TAB PO SCH (21:30)
[2020-09-16] MEDS: ACETAMINOPHEN TAB 650MG DOSE (2X325MG) PO PRN (21:40)
[2020-09-17] MEDS: HumaLOG INSULIN (NovoLOG) PER UNIT SC SCH ×4 (07:30→21:00)
[2020-09-17] MEDS: LEVEMIR (INSULIN DETEMIR) 1 UNITS/0.01ML SC SCH (09:00)
[2020-09-17] MEDS: PALIPERIDONE 3 MG ER TAB (INVEGA) PO SCH (09:52)
[2020-09-17] MEDS: MELOXICAM (MOBIC) 7.5 MG TAB PO SCH (09:52)
--- NOTE | 2020-09-17 10:25 | MHHPE ---
[facility] HISTORY AND PHYSICAL DATE OF ADMISSION: 09/16/2020 IDENTIFYING DATA: He is a 55-year-old male, single, who was brought by the police for bizarre behavior. CHIEF COMPLAINT: "I'm hearing voices. I didn't have any suicidal thoughts." HISTORY OF PRESENT ILLNESS: The patient was in another person's back yard screaming and yelling, laughing to self. He complained of auditory hallucinations and he was brought to the hospital. He reported that the voices were telling him to hurt himself and they reported that they are going to kill him. The patient was quite disorganized and during my evaluation he said, "I want my Seroquel. I did not have any suicidal thoughts." The patient reportedly was religiously preoccupied in the ER. He gets very loud and talks about God. The patient is a poor historian. Reportedly he was supposed to get Invega Sustenna on September 04. He has been noncompliant with it. PAST PSYCHIATRIC HISTORY: He has a history of multiple psychiatric hospitalizations. He was diagnosed with schizophrenia. FAMILY HISTORY: He reportedly has two brothers. They have a history of mental disorder. SUBSTANCE ABUSE HISTORY: The patient is a polysubstance abuser and he has a history of alcohol use disorder. The patient has abused amphetamines and cannabis. MEDICAL HISTORY: The patient has a history of diabetes, hypertension, COPD. VITAL SIGNS: Temperature 97.6, pulse is 88, respiratory rate is 18, blood pressure is 149/86, pulse oximetry 97%. LABS: CBC within normal limits. CMP: His fasting blood sugar was high to 112. C-reactive protein is high at 3.4. Toxicology was negative. REVIEW OF SYSTEMS: Denies any chest pain, palpitations. Denies cough or shortness of breath. Denies abdominal pain or change in bowel habits. Denies dizziness and numbness. Denies sore throat or headache. DIAGNOSES: 1. Schizo-affective disorder bipolar type. 2. Polysubstance use disorder. 3. Diabetes mellitus. 4. Chronic obstructive pulmonary disease. PLAN: 1. Admit to [facility]. 2. He will be seen by hospitalist for medical needs. 3. He will be kept on fall precautions, suicide precaution. 4. He will be seen by Case Management and Director Outcomes. 5. The patient will attend groups, activities, and milieu therapy. 6. The patient will receive Paliperidone 3 mg in the a.m. and the patient reports he wants to be on quetiapine. I will place him on 50 mg quetiapine at night. 7. The patient will get his medication for diabetes through hospitalist. Estimated length of stay is six to seven days. Time spent is 1 hour.
--- NOTE | 2020-09-17 13:01 | IPNPDOC ---
Date Seen The patient was seen on 09/17/20. Progress Note SUBJECTIVE: Much more calm this AM, allowed full exam. Right large toe still appears stable, BS improved with levemir in AM, ISS. Denies chest pain, n/v/d, shortness of breath. OBJECTIVE: VITAL SIGNS: Please see below PHYSICAL EXAMINATION: CONSTITUTIONAL: No acute distress, resting comfortably, pleasant, AAO x 3 EYES: PERRLA, EOM intact HENT, MOUTH: Normocephalic, atraumatic, moist mucous membranes, poor dental hygiene NECK: SUPPLE, no JVD, no lymphadenopathy, no carotid bruit CV: Regular rate and rhythm, S1S2 normal, no murmurs/rubs/gallops RESPIRATORY: Clear to auscultation bilaterally, no rales/rhonchi/wheezes GI: obese abd, BS positive in 4 quadrants, soft, nontender, nondistended, no rebound or guarding, no organomegaly : Deferred MUSCULOSKELETAL: Right large toe no longer bleeding, nontender, incisions appear to be in place, does not appear increasingly swollen. Normal ROM. No cyanosis, clubbing, swelling, joint deformity, extremity edema. INTEGUMENTARY: Dry skin, aside from amputation area above intact, no rashes, new lesions, no erythema NEUROLOGIC: Cranial Nerves II-XII are intact, no focal deficits PSYCHIATRIC: Mood and affect are normal LABORATORY: Please see below MICRO: None ASSESSMENT: 55-year-old AA M with PMH of schizophrenia, polysubstance abuse, alcohol abuse disorder, COPD, hypertension, uncontrolled diabetes mellitus, diabetic ulcer of great right toe status post dictation 09/04/2020 admitted to [facility] for unspecified psychotic disorder. PLAN: Unspecified psychotic disorder, hx of schizophrenia and polysubstance abuse -UDS neg ;however, drug may not show up on testing -Psychiatry to manage Right large toe diabetic foot ulcer and osteomyelitis -WBC wnl, still afebrile, toe stable and more clean compared to 09/17/20 -Treated inpatient from 09/03-, underwent debridement and later amputation on 09/04/[address] Zhou (podiatry) -Was treated with IV unasyn and vancomycin then, d/madisyn with antibiotics but unknown if patient completed regimen -Inflammatory markers this admission: improving from ESR 52, CRP of 5 from -Podiatry consulted, Dr. Zhou to see and make recommendations for treatment going forward DM type II, uncontrolled -Recent HbA1c 13 -C/w levemir, ISS, FS AC/HS, consistent carb diet while inpatient. Cannot be d/madisyn home with insulins as patient is noncompliant. Resume home antihypergly cemics at discharge. Obstructive sleep apnea -Patient reported previously he had sleep study done and was prescribed CPAP. Used it only for a couple of times and says it is stopped using it as it is hard to breathe and felt suffocated when he was using it. -Was not interested recently to get reassessed COPD -Stable on RA Hypertension -c/w home meds HFpEF -Not currently in exacerbation, saturating well on RA -c/w home meds Back pain 2/2 to TBI and paraspinal in location -c/w home meds DVT px: None DISPOSITION: Thank you kindly for this consult. At this time patient's medical issues appear stable outside of his psychiatry illness. Will sign off but if we are needed again, please do not hesitate to call at any time. VS, I&O, [facility]H, [facility] Vital Signs/I&O Vital Signs Date Time Temp Pulse Resp B/P (MAP) Pulse Ox O2 Delivery O2 Flow Rate FiO2 09/17/20 09:57 160/84 09/16/20 10:54 97.6 88 18 97 09/15/20 21:02 Room Air Laboratory Data 24H LABS Laboratory Tests 2 09/16/20 13:14: Immature Granulocyte % (Auto) 0.1, Neutrophils (%) (Auto) 34.4L, Lymphocytes (%) (Auto) 55.0H, Monocytes (%) (Auto) 6.7, Eosinophils (%) (Auto) 3.0, Basophils (% ) (Auto) 0.8, Neutrophils # (Auto) 2.5, Lymphocytes # (Auto) 4.0, Monocytes # (Auto) 0.5, Eosinophils # (Auto) 0.2, Basophils # (Auto) 0.1, Nucleated Red Blood Cells % (auto) 0.0, Erythrocyte Sedimentation Rate 44H, Anion Gap 6L, Glomerular Filtration Rate > 60.0, Calcium Level 8.9, Total Bilirubin 0.3, Aspartate Amino Transf (AST/SGOT) 13, Alanine Aminotransferase (ALT/SGPT) 15, Alkaline Phosphatase 101, C-Reactive Protein, Quantitative 3.04H, Total Protein 7.9, Albumin 3.2, Albumin/Globulin Ratio 0.7 09/16/20 17:11: Bedside Glucose (Misc Panel) 156H 09/16/20 21:39: Bedside Glucose (Misc Panel) 188H 09/17/20 07:57: Bedside Glucose (Misc Panel) 155H 09/17/20 11:48: Bedside Glucose (Misc Panel) 159H CBC/BMP Laboratory Tests 09/16/20 13:14 Magali Grove MD Sep 17, 2020 13:01
--- NOTE | 2020-09-17 18:06 | CR ---
CONSULTATION DATE: 09/17/2020 REASON FOR CONSULTATION: Recent toe amputation. HISTORY OF PRESENT ILLNESS: Akbar Ulloa is a 55-year-old diabetic gentleman who was treated by myself with a hallux amputation due to osteomyelitis on his admission. He was scheduled to have follow up with me in the office but did not make his appointments last week. He was admitted to [facility] due to Mental Health concerns on 09/16. I was asked to see him in consultation due to recent amputation. PAST MEDICAL HISTORY: The patient's past medical history is significant for: 1. Diabetes. 2. Hypertension. 3. COPD. 4. Tobacco use. 5. Polysubstance use. 6. Schizophrenia. SOCIAL HISTORY: The patient's past social history is positive for: 1. History of alcohol use. 2. Tobacco use. 3. Illicit drug use. ALLERGIES: Haloperidol. PHYSICAL EXAMINATION: EXTREMITIES: Lower extremity examination the right hallux amputation site is fully coapted. Sutures are in place. There is no extending erythema. ASSESSMENT: A 55-year-old diabetic male with osteomyelitis status post amputation of hallux. PLAN: Surgery looks appropriate without signs of ongoing infection. It is unclear if he was able to receive his full postoperative antibiotic course. We will write for Cephalexin for 7 days to insure full soft tissue coverage post amputation. Once he is discharged, he should have follow up with myself in the office.
[2020-09-17 18:33] VITALS: BP 148/88
[2020-09-17] MEDS: CEPHALEXIN 500 MG CAP PO SCH (21:25)
[2020-09-17] MEDS: traZODone 100 MG TAB PO SCH (21:25)
[2020-09-17] MEDS: QUEtiapine FUMARATE 100 MG TAB PO SCH (21:25)
[2020-09-18 06:31] VITALS: BP 135/87
[2020-09-18] MEDS: HumaLOG INSULIN (NovoLOG) PER UNIT SC SCH ×4 (06:36→21:00)
[2020-09-18] MEDS: ACETAMINOPHEN TAB 650MG DOSE (2X325MG) PO PRN (06:41)
[2020-09-18] MEDS: PALIPERIDONE 3 MG ER TAB (INVEGA) PO SCH (09:41)
[2020-09-18] MEDS: CEPHALEXIN 500 MG CAP PO SCH ×2 (09:41→21:17)
[2020-09-18] MEDS: MELOXICAM (MOBIC) 7.5 MG TAB PO SCH (09:41)
[2020-09-18] MEDS: LEVEMIR (INSULIN DETEMIR) 1 UNITS/0.01ML SC SCH (09:52)
--- NOTE | 2020-09-18 12:54 | MHIPN ---
[facility] PROGRESS NOTE DATE: 09/18/2020 SUBJECTIVE: "I'm taking my medications. I'm doing well." OBJECTIVE: This is a 55-year-old male, single, who was brought by the police for bizarre behavior. He reportedly was laughing, singing in somebody's backyard. The patient is currently disorganized. He reports he is taking his medications but he is selectively compliant. A couple of days he did not take his Insulin. He was seen by the surgeon as well as by economic analysis director. He has been diagnosed with schizophrenia in the past. Currently somewhat irritable, at times somewhat agitated. MENTAL STATUS EXAMINATION: Casually dressed, lying in his bed, cooperative, made good eye contact. Speech rate, rhythm, volume are monosyllabic. Denied any auditory and visual hallucinations. Denied suicidal or homicidal ideas. VITAL SIGNS: Temperature 97.2, pulse is 90, respiratory rate is 16, blood pressure is 135/87. LABS: CBC, CMP within normal limits. His ESR was high. His toxicology was negative. CURRENT MEDICATIONS: 1. Quetiapine 300 mg once daily. 2. Paliperidone 3 mg in the a.m. PLAN: Continue current medications. Decrease his dose of Seroquel to 200 mg at night. As the patient has a problem maintaining his balance, he lays down in his bed to stop orthostatic hypotension I kady make it 200 mg at night. ESTIMATED LENGTH OF STAY: Four to five days. Time spent is 25 minutes.
[2020-09-18 16:05] VITALS: BP 137/90
[2020-09-18] MEDS ORDERED: QUEtiapine FUMARATE 100 MG TAB PO SCH (21:00)
[2020-09-18] MEDS: traZODone 100 MG TAB PO SCH (21:17)
[2020-09-19 06:18] VITALS: BP 147/87
[2020-09-19] MEDS: HumaLOG INSULIN (NovoLOG) PER UNIT SC SCH ×4 (06:49→20:36)
[2020-09-19] MEDS: LEVEMIR (INSULIN DETEMIR) 1 UNITS/0.01ML SC SCH (09:46)
[2020-09-19] MEDS: CEPHALEXIN 500 MG CAP PO SCH ×2 (09:46→20:34)
[2020-09-19] MEDS: PALIPERIDONE 3 MG ER TAB (INVEGA) PO SCH (09:46)
[2020-09-19] MEDS: MELOXICAM (MOBIC) 7.5 MG TAB PO SCH (09:47)
--- NOTE | 2020-09-19 13:57 | MHIPNPDOC ---
[facility] [place] Progress Note Progress Note DATE OF SERVICE: 09/19/20 SUBJECTIVE: "I'm taking my medications. I'm doing well."t mostly sleeps He refuses to take sliding scale insulin. OBJECTIVE: This is a 55-year-old male, single, who was brought by the police for bizarre behavior. He reportedly was laughing, singing in somebody's backyard. The patient is currently disorganized. He reports he is taking his medications but he is selectively compliant. A couple of days he did not take his Insulin. He was seen by the surgeon as well as by occupational ther. He has been diagnosed with schizophrenia in the past. Pt sleeps most of the time . No behavioral issues. MENTAL STATUS EXAMINATION: Casually dressed, lying in his bed, cooperative, made good eye contact. Speech rate, rhythm, volume are monosyllabic. Denied any auditory and visual hallucinations. Denied suicidal or homicidal ideas. VITAL SIGNS: Temperature 97.2, pulse is 90, respiratory rate is 16, blood pressure is 135/87. LABS: CBC, CMP within normal limits. His ESR was high. His toxicology was negative. CURRENT MEDICATIONS: 1. Quetiapine 200 mg once daily. 2. Paliperidone 3 mg in the a.m. PLAN: Continue current medications. Decrease his dose of Seroquel to 150 mg at night. ESTIMATED LENGTH OF STAY: Four to five days. Time spent is 25 minutes. Vital Signs Vital Signs Date Time Temp Pulse Resp B/P (MAP) Pulse Ox O2 Delivery O2 Flow Rate FiO2 09/19/20 09:46 147/87 09/19/20 06:18 98.1 77 16 100 Room Air Laboratory Data 24H Labs Laboratory Tests 2 09/18/20 17:03: Bedside Glucose (Misc Panel) 153H 09/19/20 12:00: Bedside Glucose (Misc Panel) 148H Current Medications Current Medications Medications (Trade) Dose Ordered Sig/Preston Route PRN Reason Start Time Stop Time Status Last Admin Dose Admin Acetaminophen (Tylenol Tab) 650 mg Q6HP PRN PO HEADACHE or DISCOMFORT 09/16/20 10:50 09/18/20 06:41 Al Hydrox/Mg Hydrox/Simethicone (Mylanta) 30 ml Q4HP PRN PO HEARTBURN/INDIGESTION 09/16/20 10:50 09/16/20 16:41 Bacitracin (Bacitracin Oint) 1 dose DAILYPRN PRN TOP SEE LABEL COMMENTS 09/15/20 12:40 09/16/20 11:09 DC Cephalexin Monohydrate (Keflex) 500 mg BID PO 09/17/20 21:00 09/24/20 20:59 09/19/20 09:46 Cyclobenzaprine HCl (Flexeril) 10 mg TID PRN PO MUSCLE SPASMS 09/16/20 10:50 09/18/20 09:46 Dextrose (Dextrose 50%) 25 ml ASDIRECTED PRN IV SEE LABEL COMMENTS 09/16/20 14:35 Glipizide (Glucotrol Xl) 10 mg DAILY PO 09/16/20 09:00 09/16/20 11:04 DC Glipizide (Glucotrol Xl) 10 mg DAILY PO 09/16/20 09:00 09/16/20 18:10 DC Glucagon (Glucagon) 1 mg ASDIRECTED PRN SC SEE LABEL COMMENTS 09/16/20 14:35 Glucose (Glucose) 16 GM ASDIRECTED PRN PO SEE LABEL COMMENTS 09/16/20 14:35 Home Med (Med Rec Complete!) ASDIRECTED XX 09/15/20 18:15 09/15/20 18:23 DC Insulin Detemir (Levemir Insulin) 8 units QAM SC 09/17/20 09:00 09/19/20 09:46 Insulin Human Lispro (HumaLOG INSULIN) SEE PROTOCOL TABLE AC SC 09/17/20 07:30 09/18/20 17:06 Insulin Human Lispro (HumaLOG INSULIN) SEE PROTOCOL TABLE QHS SC 09/16/20 21:00 Lisinopril (Prinivil) 20 mg DAILY PO 09/16/20 09:00 09/16/20 11:03 DC Lisinopril (Prinivil) 20 mg DAILY PO 09/16/20 09:00 09/19/20 09:46 Magnesium Hydroxide (Milk Of Magnesia) 30 ml DAILYPRN PRN PO CONSTIPATION 09/16/20 10:50 Meloxicam (Mobic) 15 mg DAILY PO 09/16/20 09:00 09/19/20 09:47 Metformin HCl (Glucophage) 1,000 mg BID PO 09/15/20 21:00 09/16/20 11:05 DC 09/15/20 20:54 Metformin HCl (Glucophage) 1,000 mg BID PO 09/16/20 09:00 09/16/20 18:10 DC 09/16/20 12:07 Paliperidone (Invega) 3 mg QAM PO 09/16/20 09:00 09/19/20 09:46 Quetiapine Fumarate (SEROquel) 200 mg QHS PO 09/18/20 21:00 09/18/20 21:17 Quetiapine Fumarate (SEROquel) 300 mg QHS PO 09/15/20 21:00 09/16/20 11:07 DC 09/15/20 20:54 Quetiapine Fumarate (SEROquel) 300 mg QHS PO 09/16/20 21:00 09/18/20 12:19 DC 09/17/20 21:25 Trazodone HCl (Desyrel) 150 mg QHS PO 09/15/20 21:00 09/16/20 11:08 DC 09/15/20 20:54 Trazodone HCl (Desyrel) 300 mg QHS PO 09/16/20 21:00 09/18/20 21:17 Allergies Coded Allergies: haloperidol (Verified Adverse Reaction, Unknown, unknown, 07/27/20) Per brother, there was a reaction in the past the longterm. He was unable to describe the reaction. PROSPER BOYKIN MD Sep 19, 2020 13:57
[2020-09-19] MEDS: traZODone 100 MG TAB PO SCH (20:34)
[2020-09-19] MEDS: QUEtiapine FUMARATE 50MG TAB PO SCH (20:34)
[2020-09-20 06:36] VITALS: BP 149/98
[2020-09-20] MEDS: HumaLOG INSULIN (NovoLOG) PER UNIT SC SCH ×4 (07:04→21:04)
[2020-09-20] MEDS: CEPHALEXIN 500 MG CAP PO SCH ×2 (09:09→21:02)
[2020-09-20] MEDS: PALIPERIDONE 3 MG ER TAB (INVEGA) PO SCH (09:09)
[2020-09-20] MEDS: MELOXICAM (MOBIC) 7.5 MG TAB PO SCH (09:10)
[2020-09-20] MEDS: LEVEMIR (INSULIN DETEMIR) 1 UNITS/0.01ML SC SCH (09:14)
--- NOTE | 2020-09-20 14:34 | MHIPNPDOC ---
[facility] Progress Note Progress Note DATE OF SERVICE: 09/20/20 SUBJECTIVE: "I'm taking my medications. I'm doing well."t mostly sleeps.Not attending groups OBJECTIVE: This is a 55-year-old male, single, who was brought by the police for bizarre behavior. He reportedly was laughing, singing in somebody's backyard. The patient is currently disorganized. He reports he is taking his medications but he is selectively compliant. A couple of days he did not take his Insulin. He was seen by the surgeon as well as by ramp service man. He has been diagnosed with schizophrenia in the past. Pt sleeps most of the time . No behavioral issues.Dishevelled and his hygiene is poor. MENTAL STATUS EXAMINATION: Casually dressed, lying in his bed, cooperative, made poor eye contact. Speech rate, rhythm, volume are monosyllabic. Denied any auditory and visual hallucinations. Denied suicidal or homicidal ideas. . LABS: CBC, CMP within normal limits. His ESR was high. His toxicology was negative. CURRENT MEDICATIONS: 1. Quetiapine 150 mg once daily. 2. Paliperidone 3 mg in the a.m. PLAN: Continue current medications. continue Seroquel to 150 mg at night. ESTIMATED LENGTH OF STAY: Four to five days. Time spent is 25 minutes. Vital Signs Vital Signs Date Time Temp Pulse Resp B/P (MAP) Pulse Ox O2 Delivery O2 Flow Rate FiO2 09/20/20 09:09 149/98 09/20/20 06:36 97.7 88 20 100 Room Air Laboratory Data 24H Labs Laboratory Tests 2 09/19/20 16:56: Bedside Glucose (Misc Panel) 230H 09/20/20 05:59: Bedside Glucose (Misc Panel) 132H 09/20/20 11:44: Bedside Glucose (Misc Panel) 153H Current Medications Current Medications Medications (Trade) Dose Ordered Sig/Preston Route PRN Reason Start Time Stop Time Status Last Admin Dose Admin Acetaminophen (Tylenol Tab) 650 mg Q6HP PRN PO HEADACHE or DISCOMFORT 09/16/20 10:50 09/18/20 06:41 Al Hydrox/Mg Hydrox/Simethicone (Mylanta) 30 ml Q4HP PRN PO HEARTBURN/INDIGESTION 09/16/20 10:50 09/16/20 16:41 Bacitracin (Bacitracin Oint) 1 dose DAILYPRN PRN TOP SEE LABEL COMMENTS 09/15/20 12:40 09/16/20 11:09 DC Cephalexin Monohydrate (Keflex) 500 mg BID PO 09/17/20 21:00 09/24/20 20:59 09/20/20 09:09 Cyclobenzaprine HCl (Flexeril) 10 mg TID PRN PO MUSCLE SPASMS 09/16/20 10:50 09/18/20 09:46 Dextrose (Dextrose 50%) 25 ml ASDIRECTED PRN IV SEE LABEL COMMENTS 09/16/20 14:35 Glipizide (Glucotrol Xl) 10 mg DAILY PO 09/16/20 09:00 09/16/20 11:04 DC Glipizide (Glucotrol Xl) 10 mg DAILY PO 09/16/20 09:00 09/16/20 18:10 DC Glucagon (Glucagon) 1 mg ASDIRECTED PRN SC SEE LABEL COMMENTS 09/16/20 14:35 Glucose (Glucose) 16 GM ASDIRECTED PRN PO SEE LABEL COMMENTS 09/16/20 14:35 Home Med (Med Rec Complete!) ASDIRECTED XX 09/15/20 18:15 09/15/20 18:23 DC Insulin Detemir (Levemir Insulin) 8 units QAM SC 09/17/20 09:00 09/20/20 09:14 Insulin Human Lispro (HumaLOG INSULIN) SEE PROTOCOL TABLE AC SC 09/17/20 07:30 09/20/20 11:52 Insulin Human Lispro (HumaLOG INSULIN) SEE PROTOCOL TABLE QHS SC 09/16/20 21:00 Lisinopril (Prinivil) 20 mg DAILY PO 09/16/20 09:00 09/16/20 11:03 DC Lisinopril (Prinivil) 20 mg DAILY PO 09/16/20 09:00 09/20/20 09:09 Magnesium Hydroxide (Milk Of Magnesia) 30 ml DAILYPRN PRN PO CONSTIPATION 09/16/20 10:50 Meloxicam (Mobic) 15 mg DAILY PO 09/16/20 09:00 09/20/20 09:10 Metformin HCl (Glucophage) 1,000 mg BID PO 09/15/20 21:00 09/16/20 11:05 DC 09/15/20 20:54 Metformin HCl (Glucophage) 1,000 mg BID PO 09/16/20 09:00 09/16/20 18:10 DC 09/16/20 12:07 Paliperidone (Invega) 3 mg QAM PO 09/16/20 09:00 09/20/20 09:09 Quetiapine Fumarate (SEROquel) 150 mg QHS PO 09/19/20 21:00 09/19/20 20:34 Quetiapine Fumarate (SEROquel) 200 mg QHS PO 09/18/20 21:00 09/19/20 13:59 DC 09/18/20 21:17 Quetiapine Fumarate (SEROquel) 300 mg QHS PO 09/15/20 21:00 09/16/20 11:07 DC 09/15/20 20:54 Quetiapine Fumarate (SEROquel) 300 mg QHS PO 09/16/20 21:00 09/18/20 12:19 DC 09/17/20 21:25 Trazodone HCl (Desyrel) 150 mg QHS PO 09/15/20 21:00 09/16/20 11:08 DC 09/15/20 20:54 Trazodone HCl (Desyrel) 300 mg QHS PO 09/16/20 21:00 09/19/20 20:34 Allergies Coded Allergies: haloperidol (Verified Adverse Reaction, Unknown, unknown, 07/27/20) Per brother, there was a reaction in the past the [place]. He was unable to describe the reaction. PROSPER BOYKIN MD Sep 20, 2020 14:34
[2020-09-20 16:44] VITALS: BP 148/88
[2020-09-20] MEDS: traZODone 100 MG TAB PO SCH (21:03)
[2020-09-20] MEDS: QUEtiapine FUMARATE 50MG TAB PO SCH (21:03)
[2020-09-21] MEDS: HumaLOG INSULIN (NovoLOG) PER UNIT SC SCH ×4 (07:02→21:00)
[2020-09-21] MEDS: MELOXICAM (MOBIC) 7.5 MG TAB PO SCH (09:21)
[2020-09-21] MEDS: CEPHALEXIN 500 MG CAP PO SCH ×2 (09:21→21:20)
[2020-09-21] MEDS: LEVEMIR (INSULIN DETEMIR) 1 UNITS/0.01ML SC SCH (09:21)
[2020-09-21] MEDS: PALIPERIDONE 3 MG ER TAB (INVEGA) PO SCH (09:22)
--- NOTE | 2020-09-21 14:22 | MHIPNPDOC ---
[facility] Progress Note Progress Note DATE OF SERVICE: 09/21/20 SUBJECTIVE: "I'm taking my medications. I'm doing well."Pt mostly sleeping.Not attending groups. Taking his medications. OBJECTIVE: This is a 55-year-old male, single, who was brought by the police for bizarre behavior. He reportedly was laughing, singing in somebody's backyard. The patient is currently disorganized. He reports he is taking his medications but he is selectively compliant. A couple of days he did not take his Insulin. He was seen by the surgeon as well as by animal feeder. He has been diagnosed with schizophrenia in the past. Pt sleeps most of the time . No behavioral issues.Dishevelled and his hygiene is poor. MENTAL STATUS EXAMINATION: Casually dressed, lying in his bed, cooperative, made poor eye contact. Speech rate, rhythm, volume are monosyllabic. Denied any auditory and visual hallucinations. Denied suicidal or homicidal ideas. . LABS: CBC, CMP within normal limits. His ESR was high. His toxicology was negative. CURRENT MEDICATIONS: 1. Quetiapine 150 mg once daily. 2. Paliperidone 3 mg in the a.m. PLAN: Continue current medications. Decrease Seroquel to 100 mg at night. ESTIMATED LENGTH OF STAY: Four to five days. Time spent is 25 minutes. Vital Signs Vital Signs Date Time Temp Pulse Resp B/P (MAP) Pulse Ox O2 Delivery O2 Flow Rate FiO2 09/21/20 09:21 146/96 09/20/20 16:44 99.6 80 18 09/20/20 06:36 100 Room Air Laboratory Data 24H Labs Laboratory Tests 2 09/20/20 16:45: Bedside Glucose (Misc Panel) 191H 09/20/20 21:00: Bedside Glucose (Misc Panel) 293H 09/21/20 06:08: Bedside Glucose (Misc Panel) 150H 09/21/20 11:53: Bedside Glucose (Misc Panel) 179H Current Medications Current Medications Medications (Trade) Dose Ordered Sig/Preston Route PRN Reason Start Time Stop Time Status Last Admin Dose Admin Acetaminophen (Tylenol Tab) 650 mg Q6HP PRN PO HEADACHE or DISCOMFORT 09/16/20 10:50 09/18/20 06:41 Al Hydrox/Mg Hydrox/Simethicone (Mylanta) 30 ml Q4HP PRN PO HEARTBURN/INDIGESTION 09/16/20 10:50 09/16/20 16:41 Bacitracin (Bacitracin Oint) 1 dose DAILYPRN PRN TOP SEE LABEL COMMENTS 09/15/20 12:40 09/16/20 11:09 DC Cephalexin Monohydrate (Keflex) 500 mg BID PO 09/17/20 21:00 09/24/20 20:59 09/21/20 09:21 Cyclobenzaprine HCl (Flexeril) 10 mg TID PRN PO MUSCLE SPASMS 09/16/20 10:50 09/18/20 09:46 Dextrose (Dextrose 50%) 25 ml ASDIRECTED PRN IV SEE LABEL COMMENTS 09/16/20 14:35 Glipizide (Glucotrol Xl) 10 mg DAILY PO 09/16/20 09:00 09/16/20 11:04 DC Glipizide (Glucotrol Xl) 10 mg DAILY PO 09/16/20 09:00 09/16/20 18:10 DC Glucagon (Glucagon) 1 mg ASDIRECTED PRN SC SEE LABEL COMMENTS 09/16/20 14:35 Glucose (Glucose) 16 GM ASDIRECTED PRN PO SEE LABEL COMMENTS 09/16/20 14:35 Home Med (Med Rec Complete!) ASDIRECTED XX 09/15/20 18:15 09/15/20 18:23 DC Insulin Detemir (Levemir Insulin) 8 units QAM SC 09/17/20 09:00 09/21/20 09:21 Insulin Human Lispro (HumaLOG INSULIN) SEE PROTOCOL TABLE AC SC 09/17/20 07:30 09/21/20 11:56 Insulin Human Lispro (HumaLOG INSULIN) SEE PROTOCOL TABLE QHS SC 09/16/20 21:00 09/20/20 21:04 Lisinopril (Prinivil) 20 mg DAILY PO 09/16/20 09:00 09/16/20 11:03 DC Lisinopril (Prinivil) 20 mg DAILY PO 09/16/20 09:00 09/21/20 09:21 Magnesium Hydroxide (Milk Of Magnesia) 30 ml DAILYPRN PRN PO CONSTIPATION 09/16/20 10:50 Meloxicam (Mobic) 15 mg DAILY PO 09/16/20 09:00 09/21/20 09:21 Metformin HCl (Glucophage) 1,000 mg BID PO 09/15/20 21:00 09/16/20 11:05 DC 09/15/20 20:54 Metformin HCl (Glucophage) 1,000 mg BID PO 09/16/20 09:00 09/16/20 18:10 DC 09/16/20 12:07 Paliperidone (Invega) 3 mg QAM PO 09/16/20 09:00 09/21/20 09:22 Quetiapine Fumarate (SEROquel) 100 mg QHS PO 09/21/20 21:00 Quetiapine Fumarate (SEROquel) 150 mg QHS PO 09/19/20 21:00 09/21/20 10:09 DC 09/20/20 21:03 Quetiapine Fumarate (SEROquel) 200 mg QHS PO 09/18/20 21:00 09/19/20 13:59 DC 09/18/20 21:17 Quetiapine Fumarate (SEROquel) 300 mg QHS PO 09/15/20 21:00 09/16/20 11:07 DC 09/15/20 20:54 Quetiapine Fumarate (SEROquel) 300 mg QHS PO 09/16/20 21:00 09/18/20 12:19 DC 09/17/20 21:25 Trazodone HCl (Desyrel) 150 mg QHS PO 09/15/20 21:00 09/16/20 11:08 DC 09/15/20 20:54 Trazodone HCl (Desyrel) 300 mg QHS PO 09/16/20 21:00 09/20/20 21:03 Allergies Coded Allergies: haloperidol (Verified Adverse Reaction, Unknown, unknown, 07/27/20) Per brother, there was a reaction in the past the longterm. He was unable to describe the reaction. PROSPER BOYKIN MD Sep 21, 2020 14:22
[2020-09-21 16:08] VITALS: BP 160/84
[2020-09-21] MEDS: QUEtiapine FUMARATE 100 MG TAB PO SCH (21:20)
[2020-09-21] MEDS: traZODone 100 MG TAB PO SCH (21:20)
[2020-09-22 06:19] VITALS: BP 158/94
[2020-09-22] MEDS: HumaLOG INSULIN (NovoLOG) PER UNIT SC SCH ×4 (06:49→20:59)
[2020-09-22] MEDS: CEPHALEXIN 500 MG CAP PO SCH ×2 (09:06→20:52)
[2020-09-22] MEDS: MELOXICAM (MOBIC) 7.5 MG TAB PO SCH (09:06)
[2020-09-22] MEDS: LEVEMIR (INSULIN DETEMIR) 1 UNITS/0.01ML SC SCH (09:06)
[2020-09-22] MEDS: PALIPERIDONE 3 MG ER TAB (INVEGA) PO SCH (09:07)
[2020-09-22] MEDS: traZODone 100 MG TAB PO SCH (20:52)
[2020-09-22] MEDS: QUEtiapine FUMARATE 100 MG TAB PO SCH (20:52)
[2020-09-23 06:15] VITALS: BP 158/92
[2020-09-23] MEDS: HumaLOG INSULIN (NovoLOG) PER UNIT SC SCH ×4 (06:50→20:03)
[2020-09-23] MEDS: PALIPERIDONE 3 MG ER TAB (INVEGA) PO SCH (08:43)
[2020-09-23] MEDS: CEPHALEXIN 500 MG CAP PO SCH ×2 (08:43→20:02)
[2020-09-23] MEDS: LEVEMIR (INSULIN DETEMIR) 1 UNITS/0.01ML SC SCH (08:43)
[2020-09-23] MEDS: MELOXICAM (MOBIC) 7.5 MG TAB PO SCH (08:43)
[2020-09-23 16:17] VITALS: BP 157/94
[2020-09-23] MEDS: traZODone 100 MG TAB PO SCH (20:01)
[2020-09-23] MEDS: QUEtiapine FUMARATE 100 MG TAB PO SCH (20:02)
[2020-09-24 07:01] VITALS: BP 167/98
[2020-09-24] MEDS: HumaLOG INSULIN (NovoLOG) PER UNIT SC SCH ×4 (07:07→21:13)
[2020-09-24] MEDS: MELOXICAM (MOBIC) 7.5 MG TAB PO SCH (09:21)
[2020-09-24] MEDS: PALIPERIDONE 3 MG ER TAB (INVEGA) PO SCH (09:22)
[2020-09-24] MEDS: CEPHALEXIN 500 MG CAP PO SCH (09:22)
[2020-09-24] MEDS: LEVEMIR (INSULIN DETEMIR) 1 UNITS/0.01ML SC SCH (09:31)
[2020-09-24 18:00] VITALS: BP 137/80
--- NOTE | 2020-09-24 20:00 | MHIPNPDOC ---
[facility] Progress Note Progress Note DATE OF SERVICE: 09/24/20 HISTORY: As pr previous notes: "Pt reports "I been hearing voices and stuff". Pt reports that he has been hearing male voices telling him that they are going to kill him. He states that last night "I was inside watching Robert Pineda and somehow it got me outside" That is how he describes the events that led to him arriving at the hospital. Pt's voice is extremely horse and he is difficult to understand throughout the interview. Pt states "I was doing a lot of screaming" in relation to his voice. PSA asked if his screaming is what led to police involvement and he states "yeah I think so" Pt was highly agitated and uncooperative at time of arrival. Pt reports a Hx of "schizophrenia since a skull fracture on 2000" Pt states that he has been prescribed seroquel, but is currently not taking it and has not for 4 or 5 "weeks or day" Pt appears to be a poor historian in terms of his mental health treatment. He may be engaged at [facility] or [facility], he repeatedly refers to a Chandu "protective services case worker" and talks about him prescribing his medicine. He reports that he does have an appointment "coming up" It is clear that he has not followed up with [facility] since last [facility] stay in order to maintain his Invega Sustenna injection that was due September 04, 2020. When asked about previous hospital stays pt initially stated "it been years" but was referring to medical stays in relation to his skull fracture. When PSA clarified inpatient mental health, he was able to recall his last admission here at [facility]. Pt thoughts are very disorganized and evaluation was difficult due to that fact, decompensation is apparent. The more Pt is engaged in the interview, the more he becomes pre-occupied with faith delusions. Pt gets very loud and preaches about "being a man of God" Pt is unable to be redirected, but once he is fini shed with his "sermon being delivered" he is able to speak with PSA. Pt admits to recent "sophia" use to include yesterday but the exact timeline is unclear. Pt denies SI/HI, but faith delusions are abundantly apparent." VITAL SIGNS: See below. NEW TEST RESULTS: See below CURRENT MEDICATIONS: See below. MENTAL STATUS EXAMINATION: Patient is a 55-year old male, who is alert, cooperative, dressed i in hospital clothes. Speech: Is circumstantial but mostly organized Language skills are Thought processes including: He is circumstantial but is more organized than on his previous admission. Thought content: he denies SI/HI, he doesn't deny TAV hallucinations but he says they are less intense and less frequent. He denies command hallucinations and denies thought delusions. Description of associations: loose at times. Description of abnormal or psychotic thoughts: he denies thought delusions, reports auditory hallucinations ( according to him, he always has them and now are less intense and less frequent). Judgment: improving Insight: fair. Orientation: x 3. Recent and remote memory: fair. Attention span and concentration: he is easily distracted but he can be re directed easily. Language: adequate Fund of knowledge: average. Mood: euthymic. Affect: congruent with mood, full, reactive. DIAGNOSES: 1. Schizoaffective disorder, bipolar type ASSESSMENT: patient has been pleasant and cooperative. He is circumstantial but he is redirectable, he admits to hear voices bu he says that he always hears voices and at this time they are less frequent and less intense. He, unfortunately has not been discharged because he has a housing problem, as apparently he is not allowed to return to most hotels in [place] and he can't go to [facility] as his D/C Pull Worker has told me. Unfortunately he tends to get aggressive when he is not discharged and he is right, he has been taking his medications. Hopefully we will be able to help him with his housing situation before his frustration and anger escalate. MANAGEMENT PLAN: Will continue with current treatment plan TIME SPENT: 20 minutes. Vital Signs Vital Signs Date Time Temp Pulse Resp B/P (MAP) Pulse Ox O2 Delivery O2 Flow Rate FiO2 09/24/20 09:21 167/98 09/24/20 07:01 97.0 82 20 97 Room Air Laboratory Data 24H Labs Laboratory Tests 2 09/23/20 16:42: Bedside Glucose (Misc Panel) 197H 09/24/20 06:16: Bedside Glucose (Misc Panel) 178H 09/24/20 11:24: Bedside Glucose (Misc Panel) 207H Current Medications Current Medications Medications (Trade) Dose Ordered Sig/Preston Route PRN Reason Start Time Stop Time Status Last Admin Dose Admin Acetaminophen (Tylenol Tab) 650 mg Q6HP PRN PO HEADACHE or DISCOMFORT 09/16/20 10:50 09/18/20 06:41 Al Hydrox/Mg Hydrox/Simethicone (Mylanta) 30 ml Q4HP PRN PO HEARTBURN/INDIGESTION 09/16/20 10:50 09/16/20 16:41 Bacitracin (Bacitracin Oint) 1 dose DAILYPRN PRN TOP SEE LABEL COMMENTS 09/15/20 12:40 09/16/20 11:09 DC Cephalexin Monohydrate (Keflex) 500 mg BID PO 09/17/20 21:00 09/24/20 20:59 09/24/20 09:22 Cyclobenzaprine HCl (Flexeril) 10 mg TID PRN PO MUSCLE SPASMS 09/16/20 10:50 09/18/20 09:46 Dextrose (Dextrose 50%) 25 ml ASDIRECTED PRN IV SEE LABEL COMMENTS 09/16/20 14:35 Glipizide (Glucotrol Xl) 10 mg DAILY PO 09/16/20 09:00 09/16/20 11:04 DC Glipizide (Glucotrol Xl) 10 mg DAILY PO 09/16/20 09:00 09/16/20 18:10 DC Glucagon (Glucagon) 1 mg ASDIRECTED PRN SC SEE LABEL COMMENTS 09/16/20 14:35 Glucose (Glucose) 16 GM ASDIRECTED PRN PO SEE LABEL COMMENTS 09/16/20 14:35 Home Med (Med Rec Complete!) ASDIRECTED XX 09/15/20 18:15 09/15/20 18:23 DC Insulin Detemir (Levemir Insulin) 8 units QAM SC 09/17/20 09:00 09/24/20 09:31 Insulin Human Lispro (HumaLOG INSULIN) SEE PROTOCOL TABLE AC SC 09/17/20 07:30 09/24/20 11:28 Insulin Human Lispro (HumaLOG INSULIN) SEE PROTOCOL TABLE QHS SC 09/16/20 21:00 09/20/20 21:04 Lisinopril (Prinivil) 20 mg DAILY PO 09/16/20 09:00 09/16/20 11:03 DC Lisinopril (Prinivil) 20 mg DAILY PO 09/16/20 09:00 09/24/20 09:21 Magnesium Hydroxide (Milk Of Magnesia) 30 ml DAILYPRN PRN PO CONSTIPATION 09/16/20 10:50 Meloxicam (Mobic) 15 mg DAILY PO 09/16/20 09:00 09/24/20 09:21 Metformin HCl (Glucophage) 1,000 mg BID PO 09/15/20 21:00 09/16/20 11:05 DC 09/15/20 20:54 Metformin HCl (Glucophage) 1,000 mg BID PO 09/16/20 09:00 09/16/20 18:10 DC 09/16/20 12:07 Paliperidone (Invega) 3 mg QAM PO 09/16/20 09:00 09/24/20 09:22 Quetiapine Fumarate (SEROquel) 100 mg QHS PO 09/21/20 21:00 09/23/20 20:02 Quetiapine Fumarate (SEROquel) 150 mg QHS PO 09/19/20 21:00 09/21/20 10:09 DC 09/20/20 21:03 Quetiapine Fumarate (SEROquel) 200 mg QHS PO 09/18/20 21:00 09/19/20 13:59 DC 09/18/20 21:17 Quetiapine Fumarate (SEROquel) 300 mg QHS PO 09/15/20 21:00 09/16/20 11:07 DC 09/15/20 20:54 Quetiapine Fumarate (SEROquel) 300 mg QHS PO 09/16/20 21:00 09/18/20 12:19 DC 09/17/20 21:25 Trazodone HCl (Desyrel) 150 mg QHS PO 09/15/20 21:00 09/16/20 11:08 DC 09/15/20 20:54 Trazodone HCl (Desyrel) 300 mg QHS PO 09/16/20 21:00 09/23/20 20:01 Allergies Coded Allergies: haloperidol (Verified Adverse Reaction, Unknown, unknown, 07/27/20) Per brother, there was a reaction in the past the [facility]. He was unable to describe the reaction. RACHEL MCINTOSH MD September 24, 2020 14:51
[2020-09-24] MEDS: QUEtiapine FUMARATE 100 MG TAB PO SCH (21:12)
[2020-09-24] MEDS: traZODone 100 MG TAB PO SCH (21:12)
[2020-09-25] MEDS: HumaLOG INSULIN (NovoLOG) PER UNIT SC SCH ×2 (06:31→11:41)
[2020-09-25 06:37] VITALS: BP 206/96
[2020-09-25 07:42] VITALS: BP 143/75
[2020-09-25 09:08] VITALS: BP 143/75
[2020-09-25] MEDS: PALIPERIDONE 3 MG ER TAB (INVEGA) PO SCH (09:08)
[2020-09-25] MEDS: MELOXICAM (MOBIC) 7.5 MG TAB PO SCH (09:08)
[2020-09-25] MEDS: LEVEMIR (INSULIN DETEMIR) 1 UNITS/0.01ML SC SCH (09:14)
[2020-09-25] MEDS ORDERED: MELO15TA28 PO (12:43)
[2020-09-25] MEDS ORDERED: INVE234I IM (12:43)
[2020-09-25] MEDS ORDERED: QUET100T2 PO (12:43)
[2020-09-25] MEDS ORDERED: LISI20TA33 PO (12:43)
[2020-09-25] MEDS ORDERED: CYCL-707 PO (12:43)
[2020-09-25] MEDS ORDERED: PALI1TAB2 PO (12:43)
[2020-09-25] MEDS ORDERED: TRAZ-257 PO (12:43)
[2020-09-25] MEDS ORDERED: TRUL10IN SC (12:43)
--- NOTE | 2020-09-25 16:34 | MHDSPDOC ---
[facility] Discharge Summary Discharge Summary DATE OF ADMISSION: Sep 16, 2020 at 10:49 DATE OF DISCHARGE: September 25, 2020 at 15:00 DISCHARGE DIAGNOSES: 1. Schizoaffective disorder, bipolar type 2. R/O Schizophrenia 3. Alcohol abuse disorder 4. History of non-compliance 5. History of polysubstance abuse REASON FOR ADMISSION: As per previous notes: "Reason for Referral Pt was in another person's back yard screaming and showing signs of psychosis. Chief Complaint Pt reports "I been hearing voices and stuff". Pt reports that he has been hearing male voices telling him that they are going to kill him. He states that last night "I was inside watching Robert Pineda and somehow it got me outside" That is how he describes the events that led to him arriving at the hospital. Pt's voice is extremely horse and he is difficult to understand throughout the interview. Pt states "I was doing a lot of screaming" in relation to his voice. PSA asked if his screaming is what led to police involvement and he states "yeah I think so" Pt was highly agitated and uncooperative at time of arrival. Pt reports a Hx of "schizophrenia since a skull fracture on 2000" Pt states that he has been prescribed seroquel, but is currently not taking it and has not for 4 or 5 "weeks or day" Pt appears to be a poor historian in terms of his mental health treatment. He may be engaged at [facility] or [facility], he repeatedly refers to a Chandu "director of casework department" and talks about him prescribing his medicine. He reports that he does have an appointment "coming up" It is clear that he has not followed up with [facility] since last [facility] stay in order to maintain his Invega Sustenna injection that was due September 04, 2020. When asked about previous hospital stays pt initially stated "it been years" but was referring to medical stays in relation to his skull fracture. When PSA clarified inpatient mental health, he was able to recall his last admission here at [facility]. Pt thoughts are very disorganized and evaluation was difficult due to that fact, decompensation is apparent. The more Pt is engaged in the interview, the more he becomes pre-occupied with spiritism delusions. Pt gets very loud and preaches about "being a man of God" Pt is unable to be redirected, but once he is finished with his "sermon being delivered" he is able to speak with PSA. Pt admits to recent "sophia" use to include yesterday but the exact timeline is unclear. Pt denies SI/HI, but spiritism delusions are abundantly apparent. CONSULTANTS INVOLVED: Please see History and Physical initial evaluation by Hospitalist TREATMENT AND PROGRESS ON THE UNIT : While the patient was at the Unit, he reported hearing voices, he presented with disorganized thoughts but he did have a good response to medication, where he took Invega 3 mgs PO daily, Seroquel 100 mgs PO QHS, Trazodone 300 mgs PO QHS. He has been overall, pleasant and cooperative and he has admitted to hear voices in previous days but he says he has heard them all his life, however, he says, since he was admitted they have decreased in frequency and intensity. he says those voices are not commanding in nature. The patient has taken his medications and has not been threatening to staff or peers. He has participated in individual treatment, group therapy and milieu therapy. He still endorses auditory hallucinations but he has experienced them for a long time and they are not commanding in nature. HOSPITAL COURSE: As above DISCHARGE ASSESSMENT: The patient was not suicidal, not homicidal, not psychotic. He was not manic, he was not obsessive, denied depression, denied anxiety, denied thought delusions. His mood was euthymic, he was future orientated, he was singing, as he has been doing it lately. He had a friendly, happy attitude. He was not a threat to himself or others. MENTAL STATUS EXAMINATION ON DISCHARGE: Patient is a 55-year old male, who is alert, cooperative, dressed in hospital clothes. Speech: normal r/t but is loud. Circumstantial at times Language skills are intact Thought processes including: At times he is still circumstantial but organized most of the time Thought content: he denies SI/HI, he denies TAV hallucinations at this time and he is not responding to internal stimuli, he is not paranoid, not mistrustful, not guarded, not grandiose. Description of associations: loose at times. Description of abnormal or psychotic thoughts: he denies thought delusions, denies TAV hallucinations at this time Judgment: improving Insight: improving Orientation: x 3. Recent and remote memory: fair. Attention span and concentration: he can be easily distracted but he can be re directed Language: adequate Fund of knowledge: average. Mood: euthymic. Affect: congruent with mood, full, reactive. MEDICATIONS ON DISCHARGE: Scheduled Dulaglutide (Trulicity) 0.75 Mg/0.5 Ml Pen.injctr, 0.75 MG SC 1XWK for diabetes, #4 MON Lisinopril (Lisinopril) 20 Mg Tablet, 20 MG PO DAILY for hypertension, #7 Meloxicam (Meloxicam) 15 Mg Tablet, 15 MG PO DAILY for pain, #7 Metformin HCl (Metformin HCl) 1,000 Mg Tab, 1,000 MG PO BID, (Reported) Paliperidone (Paliperidone ER) 3 Mg Tab.er.24, 3 MG PO QAM for psychosis, #7 Paliperidone Palmitate (Invega Sustenna) 234 Mg/1.5 Ml Syringe, 234 MG IM QMONTH for psychosis, #1 Quetiapine Fumarate (Quetiapine Fumarate) 100 Mg Tablet, 100 MG PO QHS for psychosis/sleep, #7 Trazodone HCl (Trazodone HCl) 100 Mg Tablet, 300 MG PO QHS for sleep, #7 Scheduled PRN Acetaminophen (Acetaminophen ER) 650 Mg Tablet.er, 650 MG PO TID PRN for PAIN, (Reported) Cyclobenzaprine HCl (Cyclobenzaprine HCl) 10 Mg Tablet, 10 MG PO TID PRN for MUSCLE SPASMS, #21 PLAN/FOLLOWUP ARRANGEMENTS: Follow Up Care Education Label * [facility] Health Appt 1 * [facility] * Established With This Provider Yes * Therapist AMANDA * Date October 01, 2020 * Time 13:00 * Address of Clinic or Practice [address] [place] [address] * * Additional information THIS IS FOR MEDICATION INJECTION Follow Up Care Education Label * Mental Health Appt 2 * [facility] * Established With This Provider Yes * Therapist JING * Date October 02, 2020 * Time 11:00 * Address of Clinic or Practice [address] [place] [address] * Follow Up Care Education Label * Mental Health Appt 3 * [facility] * Established With This Provider Yes * Therapist KJ * Date October 09, 2020 * Time 10:30 * Address of Clinic or Practice [address] [facility] * * Additional information MEDICATION Follow Up Care Education Label * Medical * Medical Follow Up [facility] * Established With This Provider Yes * Therapist RIDGE PHILIPPE * Date October 01, 2020 * Time 10:40 * Address of Clinic or Practice [address] [facility] * The amount of time spent in the coordination of care for this patient was approximately 35 minutes. ETOH/Disorder Med Rx ETOH/DRUG DISORDER RX: Offrd @ d/c & pt refused Vital Signs/I&Os Vital Signs Date Time Temp Pulse Resp B/P (MAP) Pulse Ox O2 Delivery O2 Flow Rate FiO2 09/25/20 09:08 143/75 09/25/20 06:37 97.7 84 20 100 Room Air Laboratory Data Labs 24H Laboratory Tests 2 09/24/20 17:29: Bedside Glucose (Misc Panel) 291H 09/24/20 21:10: Bedside Glucose (Misc Panel) 254H 09/25/20 06:08: Bedside Glucose (Misc Panel) 135H 09/25/20 11:35: Bedside Glucose (Misc Panel) 222H Medications Scheduled Dulaglutide (Trulicity) 0.75 Mg/0.5 Ml Pen.injctr, 0.75 MG SC 1XWK for diabetes, #4 MONDAYS Lisinopril (Lisinopril) 20 Mg Tablet, 20 MG PO DAILY for hypertension, #7 Meloxicam (Meloxicam) 15 Mg Tablet, 15 MG PO DAILY for pain, #7 Metformin HCl (Metformin HCl) 1,000 Mg Tab, 1,000 MG PO BID, (Reported) Paliperidone (Paliperidone ER) 3 Mg Tab.er.24, 3 MG PO QAM for psychosis, #7 Paliperidone Palmitate (Invega Sustenna) 234 Mg/1.5 Ml Syringe, 234 MG IM QMONTH for psychosis, #1 Quetiapine Fumarate (Quetiapine Fumarate) 100 Mg Tablet, 100 MG PO QHS for psychosis/sleep, #7 Trazodone HCl (Trazodone HCl) 100 Mg Tablet, 300 MG PO QHS for sleep, #7 Scheduled PRN Acetaminophen (Acetaminophen ER) 650 Mg Tablet.er, 650 MG PO TID PRN for PAIN, (Reported) Cyclobenzaprine HCl (Cyclobenzaprine HCl) 10 Mg Tablet, 10 MG PO TID PRN for MUSCLE SPASMS, #21 Miscellaneous Medications [Patient Comment] , (Reported) UNABLE TO VERIFY MEDICATIONS WITH PATIENT, MED LIST OBTAINED FROM EXT MED HX Allergies Coded Allergies: haloperidol (Verified Adverse Reaction, Unknown, unknown, 07/27/20) Per brother, there was a reaction in the past the [facility]. He was unable to describe the reaction. RACHEL MCINTOSH MD September 25, 2020 15:48
== END 2020-09-25 15:00 | disposition home or self-care (01) | DRG 750 ==
LOC: M ED 01:51 → CANBEDREQ 10:06 → M ED INP 09-16 10:49 → M PSY 09-16 11:45
PROVIDERS: ADMIT Psychiatry & Neurology Psychiatry; ATTEND Psychiatry & Neurology Psychiatry
DX: F25.0 Schizoaffective disorder, bipolar type (principal); F10.10 Alcohol abuse, uncomplicated; Z91.19 Patient's noncompliance with other medical treatment and regimen; Z79.899 Other long term (current) drug therapy; Z88.8 Allergy status to other drugs, medicaments and biological substances; J44.9 Chronic obstructive pulmonary disease, unspecified; I10 Essential (primary) hypertension; E11.621 Type 2 diabetes mellitus with foot ulcer; Z91.14 Patient's other noncompliance with medication regimen; F17.200 Nicotine dependence, unspecified, uncomplicated; L97.519 Non-pressure chronic ulcer of other part of right foot with unspecified severity; G47.33 Obstructive sleep apnea (adult) (pediatric); Z79.4 Long term (current) use of insulin

== ENCOUNTER 2020-10-02 11:24 | Inpatient (IN) | payer MEDICAID, OTHER ==
[~2020-10-02] VITALS: Ht 188 cm; Wt 118.6 kg
[~2020-10-02 11:24] MED LIST changes: +ACE65ERTAB PO; +MELO15TA28 PO; +PATIENT COMMENT; +QUET100T2 PO; +TRAZ-257 PO
--- NOTE | 2020-10-02 14:23 | REP ---
INDICATION: cough, SOB, hx COPD, eval for pneumonia COMPARISON: 09/02/2020. TECHNIQUE: PA/Lateral FINDINGS: Lungs: Clear, no infiltrate. Heart: Normal in size. Mediastinum: Mediastinal silhouette unremarkable. Pleural angles: Unremarkable.. Bones and soft tissues: There are degenerative changes of the spine without compression deformity. IMPRESSION: No acute pulmonary disease. <Electronically signed by Parish Huizar > 10/02/20 [id number]
[2020-10-02 14:43] LABS: HEMATOCRIT 41.9 % (42.0-52.0); MEAN CORPUSCULAR HEMOGLOBIN 27.7 pg (27.0-33.0); MEAN CORPUSCULAR HGB CONC 33.4 g/dl (32.0-36.5); PLATELET COUNT, AUTOMATED 274 10^3/uL (150-450); RED BLOOD COUNT 5.05 10^6/uL (4.30-6.10); WHITE BLOOD COUNT 7.6 10^3/uL (4.0-10.0)
[2020-10-02] MEDS ORDERED: CEPHALEXIN 500 MG CAP PO ONE (15:00)
[2020-10-02 15:09] LABS: AMPHETAMINES LEVEL URINE POSITIVE (NEGATIVE); BARBITURATES URINE NEGATIVE (NEGATIVE); BENZODIAZEPINES URINE NEGATIVE (NEGATIVE); CANNABINOIDS URINE POSITIVE (NEGATIVE); COCAINE METABOLITE URINE NEGATIVE (NEGATIVE); METHADONE URINE NEGATIVE (NEGATIVE); OPIATES URINE NEGATIVE (NEGATIVE); PHENCYCLIDINE URINE NEGATIVE (NEGATIVE)
[2020-10-02 15:23] LABS: ACETAMINOPHEN LEVEL < 2.0 UG/ML (10.0-30.0); ALBUMIN 3.8 GM/DL (3.2-5.2); ALT/SGPT 16 U/L (12-78); BILIRUBIN,DIRECT 0.2 MG/DL (0.0-0.2); BILIRUBIN,TOTAL 0.5 MG/DL (0.2-1.0); BLOOD UREA NITROGEN 11 MG/DL (7-18); CALCIUM LEVEL 9.7 MG/DL (8.5-10.1); CARBON DIOXIDE LEVEL 28 MEQ/L (21-32); CHLORIDE LEVEL 98 MEQ/L (98-107); CREATININE FOR GFR 1.05 MG/DL (0.70-1.30); ETHYL ALCOHOL (ETHANOL) < 0.003 % (0.000-0.010); GLOMERULAR FILTRATION RATE > 60.0 (>56); GLUCOSE, FASTING 196 MG/DL (70-100); POTASSIUM SERUM 4.2 MEQ/L (3.5-5.1); SALICYLATE LEVEL < 1.7 MG/DL (5.0-30.0); SODIUM LEVEL 133 MEQ/L (136-145)
[2020-10-02] MEDS ORDERED: LORazepam 2 MG/ML VIAL IM STA (16:22)
[2020-10-02] MEDS ORDERED: diphenhydrAMINE 50MG/ML VIAL (J1200) IM STA (16:22)
[2020-10-02] MEDS ORDERED: traZODone 100 MG TAB PO SCH (21:00)
[2020-10-02] MEDS ORDERED: QUEtiapine FUMARATE 100 MG TAB PO SCH (21:00)
[2020-10-02] MEDS ORDERED: CYCLOBENZAPRINE 10MG TABLET PO PRN (22:55)
[2020-10-02] MEDS ORDERED: MAALOX 30 ML SUSP *UDC PO PRN (22:55)
[2020-10-02] MEDS ORDERED: ACETAMINOPHEN TAB 650MG DOSE (2X325MG) PO PRN (22:55)
[2020-10-02] MEDS ORDERED: MOM 30ML SUSPENSION UDC PO PRN (22:55)
[2020-10-02] MEDS ORDERED: OLANZapine ORAL DISINTEGRATING TAB 5MG PO PRN (22:55)
[2020-10-02 23:29] VITALS: BP 131/80
[2020-10-03] MEDS: NYSTATIN 100,000 UNITS/GM TOPICAL PWD 15 GM TOP SCH ×2 (09:00→21:00)
[2020-10-03] MEDS: NICOTINE 21MG/24HR 1 EA TRANSDERMAL TD SCH (09:00)
[2020-10-03] MEDS ORDERED: PALIPERIDONE 3 MG ER TAB (INVEGA) PO SCH (09:00)
[2020-10-03] MEDS: VANICREAM MOISTURIZING SKIN CREAM 113GM TUBE TOP SCH ×2 (09:00→21:00)
[2020-10-03] MEDS: MELOXICAM (MOBIC) 7.5 MG TAB PO SCH (12:35)
[2020-10-03 12:42] VITALS: BP 141/66
[2020-10-03] MEDS ORDERED: GLUCAGON INJ 1MG VIAL SC PRN (12:50)
[2020-10-03] MEDS ORDERED: DEXTROSE 50% 50 ML SYRINGE IV PRN (12:50)
[2020-10-03] MEDS ORDERED: GLUCOSE 4GM CHEW TABLET PO PRN (12:50)
--- NOTE | 2020-10-03 13:04 | HPEPDOC ---
[facility] Medical History & Physical Date of Admission October 02, 2020 Date of Service: October 03, 2020 History and Physical CHIEF COMPLAINT: Routine medical exam HISTORY OF PRESENT ILLNESS: 55-year-old male with history of alcohol abuse, COPD, hypertension, diabetes, diabetic ulcer, right great toe, schizophrenia, admitted to the inpatient mental health unit 10/02/2020. Hospitalist was asked to do a routine medical exam. Patient denies any fever, chills, changes in weight, nausea, vomiting, diarrhea, abdominal pain, constipation, bright red blood per rectum, melena, black tarry stools, chest pain, pressure, tightness, lightheadedness, dizziness syncopal episode, bilateral upper and lower extremity weakness, paresthesias patient complains of chronic neck and back pain. Right knee pain, requesting pain medications. He denies any dysuria, urgency, frequency, polyphagia, polydipsia. 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 Ubc-zksjkeq-qyfzqvwbw diabetes, uncontrolled hypertension, COPD PAST SURGICAL HISTORY: Diabetic foot ulcer with right great toe amputation. 09/04/2020 SOCIAL HISTORY: , Smokes half pack a day for 30 years. No documented alcohol abuse. Denies active recreational drug use FAMILY HISTORY: Reviewed , noncontributory to this admission ALLERGIES: Please see below. REVIEW OF SYSTEMS: 10 point review of systems negative aside from positive findings on HPI HOME MEDICATIONS: Please see below. PHYSICAL EXAMINATION: VITAL SIGNS: See below GENERAL APPEARANCE: No distress, pallor, cyanosis, icterus, speaks in full sentences. Awake, alert, oriented to person, place and time HEENT: No JVD, thyromegaly or cervical lymphadenopathy. Moist mucous membranes CARDIOVASCULAR: S1, S2, sinus rhythm LUNGS: Clear to auscultation wheezing, rales or rhonchi ABDOMEN: Positive bowel sounds, soft, nontender, nondistended EXTREMITIES: Amputation of right big toe. No cyanosis or clubbing. Skin warm, dry, well perfused, pink in color. Dry scaly skin LABORATORY DATA: See below. MICROBIOLOGY: Please see below. ASSESSMENT: 55-year-old male with history of alcohol abuse, COPD, hypertension, diabetes, diabetic ulcer, right great toe, schizophrenia, admitted to the inpatient mental health unit 10/02/2020. Hospitalist was asked to do a routine medical exam. Status post right great toe amputation 09/04/2020 due to diabetic foot infection Type 2 diabetes Hypertension COPD Polysubstance abuse Schizophrenia Active tobacco abuse , Chronic back pain Tinea pedis . Dry skin PLAN: Psychiatric issues, managed by primary team. Resume on home all home medications, insulin sliding scale before every meal [facility] fingersticks. Outpatient follow-up with primary care physician within one week of hospital discharge. When necessary pain medications., Eucerin cream topically twice a day . Antifungal for tinea pedis. Hospitalist will sign off. Please reconsult for any new medical issues Vital Signs Vital Signs Date Time Temp Pulse Resp B/P (MAP) Pulse Ox O2 Delivery O2 Flow Rate FiO2 10/03/20 12:42 98.8 100 16 141/66 (91) 100 Room Air Laboratory Data Labs 24H Laboratory Tests 2 10/02/20 14:32: Nucleated Red Blood Cells % (auto) 0.0, Anion Gap 7L, Glomerular Filtration Rate > 60.0, Calcium Level 9.7, Total Bilirubin 0.5, Direct Bilirubin 0.2, Aspartate Amino Transf (AST/SGOT) 12, Alanine Aminotransferase (ALT/SGPT) 16, Alkaline Phosphatase 107, Total Protein 8.0, Albumin 3.8, Albumin/Globulin Ratio 0.9, Thyroid Stimulating Hormone (TSH) 1.780, Salicylates Level < 1.7L, Acetaminophen Level < 2.0L, Ethyl Alcohol Level < 0.003 10/02/20 14:34: Urine Opiates Screen NEGATIVE, Urine Methadone Screen NEGATIVE, Urine Barbiturates Screen NEGATIVE, Urine Phencyclidine Screen NEGATIVE, Urine Amphetamines Screen POSITIVEH, Urine Benzodiazepines Screen NEGATIVE, Urine Cocaine Metabolite Screen NEGATIVE, Urine Cannabinoids Screen POSITIVEH 10/02/20 14:35: Urine Color YELLOW, Urine Appearance CLOUDYH, Urine pH 5.0, Urine Specific [place] 1.012, Urine Protein 1+H, Urine Glucose (UA) NEGATIVE, Urine Ketones NEGATIVE, Urine Blood 1+H, Urine Nitrite POSITIVEH, Urine Bilirubin NEGATIVE, Urine Urobilinogen 0.2, Urine Leukocyte Esterase 3+H, Urine WBC (Auto) TNTCH, Urine RBC (Auto) 8H, Urine Hyaline Casts (Auto) 0, Urine Bacteria (Auto) 2+H, Urine Squamous Epithelial Cells 4, Urine Mucus (Auto) SMALL, Urine Sperm (Auto) , Trichomonas vaginalis (PCR) NOT DETECTED CBC/BMP Laboratory Tests 10/02/20 14:32 Microbiology Microbiology 10/02/20 Respiratory Virus Panel (PCR) ([facility]) - Final, Complete 10/02/20 Urine Culture, Received Pending Home Medications Scheduled Dulaglutide (Trulicity) 0.75 Mg/0.5 Ml Pen.injctr, 0.75 MG SC 1XWK for diabetes MONDAYS Lisinopril (Lisinopril) 20 Mg Tablet, 20 MG PO DAILY for hypertension Meloxicam (Meloxicam) 15 Mg Tablet, 15 MG PO DAILY for pain Metformin HCl (Metformin HCl) 1,000 Mg Tab, 1,000 MG PO BID Paliperidone (Paliperidone ER) 3 Mg Tab.er.24, 3 MG PO QAM for psychosis Paliperidone Palmitate (Invega Sustenna) 234 Mg/1.5 Ml Syringe, 234 MG IM QMONTH for psychosis Quetiapine Fumarate (Quetiapine Fumarate) 100 Mg Tablet, 100 MG PO QHS for psychosis/sleep Trazodone HCl (Trazodone HCl) 100 Mg Tablet, 300 MG PO QHS for sleep Scheduled PRN Acetaminophen (Acetaminophen ER) 650 Mg Tablet.er, 650 MG PO TID PRN for PAIN Cyclobenzaprine HCl (Cyclobenzaprine HCl) 10 Mg Tablet, 10 MG PO TID PRN for MUSCLE SPASMS Miscellaneous Medications [Patient Comment] UNABLE TO VERIFY MEDICATIONS WITH PATIENT, MED LIST OBTAINED FROM EXT MED HX Allergies Coded Allergies: haloperidol (Verified Adverse Reaction, Unknown, unknown, 07/27/20) Per brother, there was a reaction in the past the longterm. He was unable to describe the reaction. A-FIB/CHADSVASC A-FIB History Current/History of A-Fib/PAF?: No Current PO Anticoag Therapy: No Age/Risk Factor Scoring CHADSVASC: CHADSVASC Response (Comments) Value Age Risk Factor Age < 65 years old 0 Gender Risk Factor Male 0 Hx of CHF No 0 Hx of HTN Yes 1 Hx of Stroke/TIA/or VTE No 0 Hx of Diabetes Yes 1 Hx of Vascular Disease No 0 Total 2 Treatment Treatment ordered: NONE CIRILO TUCKER MD October 03, 2020 12:56
--- NOTE | 2020-10-03 13:21 | MHHPEPDOC ---
General Date Of Admission: October 02, 2020 Legal Status: 9.39 Chief Complaint "[Leave me alone, I'm too tired to talk to anyone]. History of Present Illness HISTORY OF THE PRESENT ILLNESS: Patient is a 55 -year-old , male, who . This is a 55-year-old single male with the long psychiatric history of schizophrenia versus schizoaffective disorder, along with known history of polysubstance abuse with repeated inpatient admissions. He was last discharged about 2 weeks ago but apparently has not been complying with any outpatient treatment. Has been drinking apparently using street drugs and was brought to the emergency room due to agitated, threatening and bizarre behavior. At the emergency room, he was not very cooperative, loud, agitated and threatening and admitted on 939 status. When approached by this M.D. in the morning the patient is angry, hostile and refusing to cooperate with any interview attempt. He apparently slept well and is in no acute distress, remained in bed but is alert and screaming that he is too tired to talk to anybody. This initial assessment was incomplete due to his inability to cooperate. He is however very well known to the unit and the most recently discharged 2 weeks rapidly decompensated without following up with any outpatient treatment. Psychiatric Review of Systems Meseret (4 or more days of): irritable/elevated mood Psychosis: delusions, paranoia, disorganization Past Psychiatric History Previous Psychiatric Diagnosis: Schizoaffective disorder, paranoid schizophrenia, polysubstance abuse]. Previous Psychiatric Admissions: Numerous repeated admissions last discharged 2 weeks ago. Suicide Attempts: [None reported]. Psychiatric Follow-up: [Noncompliant with follow-up]. Psychiatric medications: [Noncompliant with any medications]. Past Medical History Medical Problems Multiple medical issues including diabetes, hypertension, COPD Head Injury: No Hospitalizations: Yes Surgeries: Yes (recent amputation of his tour from diabetic complications) Family Medical/Psychiatric HX Psychiatric Disorders: Yes Addiction: Yes Suicide Attemps/Completions: No Addiction History nicotine, alcohol, other Social History Childhood: , Unable to evaluate. Abuse/Trauma:[, Unable to evaluate]. Current Living Situation: Apparently homeless . Education: [Unknown]. Employment: [None]. Social Support: [, Unclear]. Legal: [, Unclear]. Marital: [Apparently single]. Mental Status Examination General Appearance: unkempt, disheveled, hospital scubs/clothing Build: overweight, tall Demeanor: hostile Eye Contact: poor Activity: agitated Behavior: uncooperative, resistant, agitated Speech: pressured, non-spontaneous Mood: angry, irritable Affect: inappropriate, hostile Thought Process: other (, unable to evaluate) Thought Content (Delusions): other (. Unable to evaluate) Thought Content (Other): other (. Unable to evaluate) Thought Content (Aggressive): none reported Perception (Hallucinations): other (. Appears to be actively hallucinating) Perception (Other): none reported Cognition (Impairment of): unable to assess Cognition(Intelligence Est.): other Oriented: Awake Insight: poor Judgment: Poor Psychosis: Other Diagnoses Schizoaffective disorder. Polysubstance abuse. Continue A-FIB/CHADSVASC A-FIB History Current/History of A-Fib/PAF?: No Current PO Anticoag Therapy: No Age/Risk Factor Scoring CHADSVASC: CHADSVASC Response (Comments) Value Gender Risk Factor Male 0 Hx of HTN Yes 1 Hx of Diabetes Yes 1 Total 2 Treatment Treatment ordered: NONE Assessment Patient has been noncompliant with outpatient follow-up and apparently actively using alcohol and other drugs and acutely decompensated in disorganized, paranoid to state. Initial Treatment Plan 1. Patient was admitted on a [9.39] status. 2. Complete history was obtained. 3. With patients permission, family will be contacted and database will be exp anded. 4. Patients medication regimen will be reviewed and changed accordingly. 5. Patient will be provided with protected environment. 6. Patient will be treated with individual, group, and milieu therapies. 7. Patient will receive supportive psych-education. 8. Discharge planning will commence immediately. 9. Outpatient follow-up treatment will be strongly recommended. 10. The initial treatment plan will focus initially on: * Depression. * Risk for suicide. ESTIMATED LENGTH OF STAY: 3]-[5] DAYS. TIME SPENT COUNSELING AND COORDINATING INITIAL CARE: [40] minutes. Tobacco Cessation Screen If Patient is a Smoker unclear Pt Refused Vital Signs Vital Signs Date Time Temp Pulse Resp B/P (MAP) Pulse Ox O2 Delivery O2 Flow Rate FiO2 10/03/20 12:42 98.8 100 16 141/66 (91) 100 Room Air Laboratory Data 24H Labs Laboratory Tests 2 10/02/20 14:32: Nucleated Red Blood Cells % (auto) 0.0, Anion Gap 7L, Glomerular Filtration Rate > 60.0, Calcium Level 9.7, Total Bilirubin 0.5, Direct Bilirubin 0.2, Aspartate Amino Transf (AST/SGOT) 12, Alanine Aminotransferase (ALT/SGPT) 16, Alkaline Phosphatase 107, Total Protein 8.0, Albumin 3.8, Albumin/Globulin Ratio 0.9, Thyroid Stimulating Hormone (TSH) 1.780, Salicylates Level < 1.7L, Acetaminophen Level < 2.0L, Ethyl Alcohol Level < 0.003 10/02/20 14:34: Urine Opiates Screen NEGATIVE, Urine Methadone Screen NEGATIVE, Urine Barbiturates Screen NEGATIVE, Urine Phencyclidine Screen NEGATIVE, Urine Amphetamines Screen POSITIVEH, Urine Benzodiazepines Screen NEGATIVE, Urine Cocaine Metabolite Screen NEGATIVE, Urine Cannabinoids Screen POSITIVEH 10/02/20 14:35: Urine Color YELLOW, Urine Appearance CLOUDYH, Urine pH 5.0, Urine Specific Kermit 1.012, Urine Protein 1+H, Urine Glucose (UA) NEGATIVE, Urine Ketones NEGATIVE, Urine Blood 1+H, Urine Nitrite POSITIVEH, Urine Bilirubin NEGATIVE, Urine Urobilinogen 0.2, Urine Leukocyte Esterase 3+H, Urine WBC (Auto) TNTCH, Urine RBC (Auto) 8H, Urine Hyaline Casts (Auto) 0, Urine Bacteria (Auto) 2+H, Urine Squamous Epithelial Cells 4, Urine Mucus (Auto) SMALL, Urine Sperm (Auto) , Trichomonas vaginalis (PCR) NOT DETECTED CBC/BMP Laboratory Tests 10/02/20 14:32 Medications Scheduled Dulaglutide (Trulicity) 0.75 Mg/0.5 Ml Pen.injctr, 0.75 MG SC 1XWK for diabetes MONDAYS Lisinopril (Lisinopril) 20 Mg Tablet, 20 MG PO DAILY for hypertension Meloxicam (Meloxicam) 15 Mg Tablet, 15 MG PO DAILY for pain Metformin HCl (Metformin HCl) 1,000 Mg Tab, 1,000 MG PO BID, (Reported) Paliperidone (Paliperidone ER) 3 Mg Tab.er.24, 3 MG PO QAM for psychosis Paliperidone Palmitate (Invega Sustenna) 234 Mg/1.5 Ml Syringe, 234 MG IM QMONTH for psychosis Quetiapine Fumarate (Quetiapine Fumarate) 100 Mg Tablet, 100 MG PO QHS for psychosis/sleep Trazodone HCl (Trazodone HCl) 100 Mg Tablet, 300 MG PO QHS for sleep Scheduled PRN Acetaminophen (Acetaminophen ER) 650 Mg Tablet.er, 650 MG PO TID PRN for PAIN, (Reported) Cyclobenzaprine HCl (Cyclobenzaprine HCl) 10 Mg Tablet, 10 MG PO TID PRN for MUSCLE SPASMS Miscellaneous Medications [Patient Comment] , (Reported) UNABLE TO VERIFY MEDICATIONS WITH PATIENT, MED LIST OBTAINED FROM EXT MED HX Allergies Coded Allergies: haloperidol (Verified Adverse Reaction, Unknown, unknown, 07/27/20) Per brother, there was a reaction in the past the assisted. He was unable to describe the reaction. ARABELLA ARSHAD M.D. October 03, 2020 13:21
[2020-10-03] MEDS: ACETAMINOPHEN 500 MG TAB PO SCH ×2 (16:00→21:00)
[2020-10-03] MEDS: HumaLOG INSULIN (NovoLOG) PER UNIT SC SCH ×2 (17:01→21:00)
[2020-10-03] MEDS: metFORMIN (GLUCOPHAGE) 1000 MG TABLET PO SCH (17:59)
[2020-10-03] MEDS: IBUPROFEN PO SCH ×2 (18:02→21:00)
[2020-10-03] MEDS: QUEtiapine FUMARATE 200 MG TAB PO SCH (21:00)
[2020-10-04 06:13] VITALS: BP 128/59
[2020-10-04] MEDS: HumaLOG INSULIN (NovoLOG) PER UNIT SC SCH ×5 (07:30→21:00)
[2020-10-04] MEDS: IBUPROFEN PO SCH ×4 (08:00→20:43)
[2020-10-04 08:13] LABS: C REACTIVE PROTEIN QUANTITATIV 3.13 MG/DL (0.00-0.30); CHOLESTEROL RISK RATIO 4.119 (<5)
[2020-10-04] MEDS: ACETAMINOPHEN 500 MG TAB PO SCH ×3 (09:00→20:43)
[2020-10-04] MEDS: NICOTINE 21MG/24HR 1 EA TRANSDERMAL TD SCH (09:00)
[2020-10-04] MEDS: VANICREAM MOISTURIZING SKIN CREAM 113GM TUBE TOP SCH ×2 (09:00→20:44)
[2020-10-04] MEDS: NYSTATIN 100,000 UNITS/GM TOPICAL PWD 15 GM TOP SCH ×2 (09:00→20:43)
[2020-10-04] MEDS: MELOXICAM (MOBIC) 7.5 MG TAB PO SCH (09:10)
[2020-10-04] MEDS: metFORMIN (GLUCOPHAGE) 1000 MG TABLET PO SCH ×2 (09:10→17:13)
[2020-10-04 10:27] LABS: HEMOGLOBIN A1c 8.7 %
--- NOTE | 2020-10-04 13:03 | MHIPNPDOC ---
[facility] Progress Note Progress Note DATE OF SERVICE: 10/04/20 The patient is more alert, awake and more cooperative today. He is in bed, eating snacks almost nonstop and appears very disheveled and preoccupied. His speech is loud, pressured, but is able to answer in relevant manner and is not as hostile or angry. He claims that he received injectable medicine 2 days ago and has been taking his oral medicine too. He admits that he has been homeless for several days, has been rejected by every [facility] he went to and has no safe housing available. He claims he has not used any drugs and minimizing his drinking and claims that he has no intention of going to inpatient rehabilitation services. Is denying any active hallucinations. Denies any suicidal thoughts, but is showing no insight and no safe future plan and has no support system. VITAL SIGNS: See below. NEW TEST RESULTS: . CURRENT MEDICATIONS: See below. MENTAL STATUS EXAMINATION: Patient is a 55-year old male, who is in bed but in no acute distress. Speech: Is pressured but relevant. Language skills are fair. Thought processes including: Fairly organized. Thought content: Is denying any paranoid ideas at this time and denies any suicidal thoughts, but minimizing his alcohol and drug use and showing no insight. Abstract reasoning, and computation: , Poor. Description of associations: , Poor. Description of abnormal or psychotic thoughts: He is denying any paranoia and not expressing any gross delusional thinking . Judgment: , Poor. Insight: very poor. Orientation: Appears oriented to place. Recent and remote memory: , Poor. Attention span and concentration: , Very poor. Language: . Fund of knowledge: Below average. Mood: , Depressed, irritated. Affect: Labile, irritable . DIAGNOSES: 1. . Schizoaffective disorder 2. ., Polysubstance abuse 3. . ASSESSMENT:, Not agitated or hostile anymore and is cooperating and in good control MANAGEMENT PLAN: . Supportive therapy and discharge planning for safe housing or other support system. TIME SPENT: 20 minute Vital Signs Vital Signs Date Time Temp Pulse Resp B/P (MAP) Pulse Ox O2 Delivery O2 Flow Rate FiO2 10/04/20 09:10 128/59 10/04/20 06:13 98.9 105 20 96 Room Air Laboratory Data 24H Labs Laboratory Tests 2 10/04/20 07:36: Erythrocyte Sedimentation Rate 20, Estimated Mean Plasma Glucose 203H, Hemoglobin A1c 8.7, C-Reactive Protein, Quantitative 3.13H, Triglycerides Level 126, Total Cholesterol 173, LDL Cholesterol 106H, Non-HDL Cholesterol (LDL + VLDL) 131, Total HDL Cholesterol 42, Cholesterol/HDL Ratio 4.119, Procalcitonin <0.05 10/04/20 11:43: Bedside Glucose (Misc Panel) 148H Current Medications Current Medications Medications (Trade) Dose Ordered Sig/Preston Route PRN Reason Start Time Stop Time Status Last Admin Dose Admin Acetaminophen (Tylenol Tab) 650 mg Q6HP PRN PO HEADACHE or DISCOMFORT 10/02/20 22:55 10/03/20 13:06 DC Acetaminophen (Tylenol Tab) 1,000 mg TID PO 10/03/20 16:00 Al Hydrox/Mg Hydrox/Simethicone (Mylanta) 30 ml Q4HP PRN PO HEARTBURN/INDIGESTION 10/02/20 22:55 Cyclobenzaprine HCl (Flexeril) 10 mg TID PRN PO MUSCLE SPASMS 10/02/20 22:55 Dextrose (Dextrose 50%) 25 ml ASDIRECTED PRN IV SEE LABEL COMMENTS 10/03/20 12:50 Diphenhydramine HCl (Benadryl) 50 mg STAT STAT IM 10/02/20 16:22 10/02/20 16:23 DC Emollient Cream (Vanicream) dry skin on b/l le and ue BID TOP 10/03/20 09:00 10/13/20 08:59 Glucagon (Glucagon) 1 mg ASDIRECTED PRN SC SEE LABEL COMMENTS 10/03/20 12:50 Glucose (Glucose) 16 GM ASDIRECTED PRN PO SEE LABEL COMMENTS 10/03/20 12:50 Ibuprofen (Advil) 200 mg WMHS PO 10/03/20 18:00 10/03/20 18:02 Insulin Human Lispro (HumaLOG INSULIN) SEE PROTOCOL TABLE AC SC 10/03/20 17:30 10/04/20 11:51 Insulin Human Lispro (HumaLOG INSULIN) See Protocol Table QHS SC 10/03/20 21:00 Lisinopril (Prinivil) 20 mg DAILY PO 10/03/20 09:00 10/04/20 09:10 Lorazepam (Ativan) 2 mg STAT STAT IM 10/02/20 16:22 10/02/20 16:23 DC Magnesium Hydroxide (Milk Of Magnesia) 30 ml DAILYPRN PRN PO CONSTIPATION 10/02/20 22:55 Meloxicam (Mobic) 15 mg DAILY PO 10/03/20 09:00 10/04/20 09:10 Metformin HCl (Glucophage) 1,000 mg BID@0800,1800 PO 10/03/20 18:00 10/04/20 09:10 Nicotine (Nicoderm Cq 21mg) 1 patch DAILY TD 10/03/20 09:00 Nystatin (Mycostatin Powder, Nystop) to b/l feet x 10 days BID TOP 10/03/20 09:00 10/13/20 08:59 Olanzapine (ZyPREXA ZYDIS) 10 mg Q4HP PRN PO AGITATION/ANXIETY 10/02/20 22:55 Paliperidone (Invega) 3 mg QAM PO 10/03/20 09:00 10/03/20 13:02 DC 10/03/20 12:34 Quetiapine Fumarate (SEROquel) 100 mg QHS PO 10/02/20 21:00 10/03/20 13:02 DC 10/02/20 23:39 Quetiapine Fumarate (SEROquel) 200 mg QHS PO 10/03/20 21:00 Trazodone HCl (Desyrel) 300 mg QHS PO 10/02/20 21:00 10/03/20 13:02 DC 10/02/20 23:38 Allergies Coded Allergies: haloperidol (Verified Adverse Reaction, Unknown, unknown, 07/27/20) Per brother, there was a reaction in the past the [facility]. He was unable to describe the reaction. ARABELLA ARSHAD M.D. October 04, 2020 13:03
[2020-10-04 17:12] VITALS: BP 146/81
[2020-10-04] MEDS: QUEtiapine FUMARATE 200 MG TAB PO SCH (20:43)
[2020-10-04] MEDS: QUEtiapine FUMARATE 100 MG TAB PO SCH (23:13)
[2020-10-04] MEDS: traZODone 100 MG TAB PO SCH (23:13)
[2020-10-05 00:59] VITALS: BP 112/58
[2020-10-05] MEDS: BENZONATATE 100 MG CAP PO PRN (01:25)
[2020-10-05 06:13] VITALS: BP 112/58
[2020-10-05] MEDS: HumaLOG INSULIN (NovoLOG) PER UNIT SC SCH ×4 (07:00→21:00)
[2020-10-05] MEDS: IBUPROFEN PO SCH ×4 (08:00→21:00)
[2020-10-05] MEDS: MELOXICAM (MOBIC) 7.5 MG TAB PO SCH (08:46)
[2020-10-05] MEDS: metFORMIN (GLUCOPHAGE) 1000 MG TABLET PO SCH ×2 (08:46→17:39)
[2020-10-05] MEDS: PALIPERIDONE 3 MG ER TAB (INVEGA) PO SCH (08:46)
[2020-10-05] MEDS: VANICREAM MOISTURIZING SKIN CREAM 113GM TUBE TOP SCH ×2 (08:53→21:00)
[2020-10-05] MEDS: NYSTATIN 100,000 UNITS/GM TOPICAL PWD 15 GM TOP SCH ×2 (08:53→21:00)
[2020-10-05] MEDS: ACETAMINOPHEN 500 MG TAB PO SCH ×3 (08:53→21:00)
[2020-10-05] MEDS: NICOTINE 21MG/24HR 1 EA TRANSDERMAL TD SCH (08:53)
--- NOTE | 2020-10-05 10:57 | MHIPNPDOC ---
[facility] Progress Note Progress Note DATE OF SERVICE: 10/05/20 The patient shows slightly improved hygiene and not appear as disheveled. He is a however in bed most of time, very withdrawn and regressed, and quite irritable on approach. He claims that his been taking all his medicines and he is not having any hallucination and claims he hasn't used any drugs. He has absolutely no idea what he needs, but he needs housing and felt but has no support system. His brother was contacted, but hasn't returned the call to the health social work professor. Patient remains grossly regressed, disorganized, but no acting out behavior. So far. HISTORY: . VITAL SIGNS: See below. NEW TEST RESULTS: . CURRENT MEDICATIONS: See below. MENTAL STATUS EXAMINATION: Speech: Is , very limited, not spontaneous. Language skills are , poor. Thought processes including: Not relevant and not very productive at all . Thought content: Patient superficially denies any paranoia or hallucinations. Abstract reasoning, and computation: , Poor. Description of associations: , Poor. Description of abnormal or psychotic thoughts: Appears grossly disorganized. Judgment: , Poor. Insight: poor. Orientation: , Oriented to place. Recent and remote memory: , Poor. Attention span and concentration: , Poor. Language: . Fund of knowledge: , Very poor. Mood: , Anxious, irritable. Affect: Labile, irritable]. DIAGNOSES: 1. . Schizoaffective disorder 2. ., Polysubstance abuse 3. . ASSESSMENT:[Cooperating with the medicine, but no significant change] MANAGEMENT PLAN: [, Continue with that. His current treatment and discharge planning]. TIME SPENT: [15] minutes. Vital Signs Vital Signs Date Time Temp Pulse Resp B/P (MAP) Pulse Ox O2 Delivery O2 Flow Rate FiO2 10/05/20 08:46 130/71 10/05/20 06:13 98.5 100 20 99 Room Air Laboratory Data 24H Labs Laboratory Tests 2 10/04/20 11:43: Bedside Glucose (Misc Panel) 148H 10/04/20 17:07: Bedside Glucose (Misc Panel) 154H 10/04/20 22:22: Bedside Glucose (Misc Panel) 163H 10/05/20 06:03: Bedside Glucose (Misc Panel) 152H Current Medications Current Medications Medications (Trade) Dose Ordered Sig/Preston Route PRN Reason Start Time Stop Time Status Last Admin Dose Admin Acetaminophen (Tylenol Tab) 650 mg Q6HP PRN PO HEADACHE or DISCOMFORT 10/02/20 22:55 10/03/20 13:06 DC Acetaminophen (Tylenol Tab) 1,000 mg TID PO 10/03/20 16:00 Al Hydrox/Mg Hydrox/Simethicone (Mylanta) 30 ml Q4HP PRN PO HEARTBURN/INDIGESTION 10/02/20 22:55 Benzonatate (Tessalon Perles) 100 mg BIDP PRN PO COUGH 10/05/20 01:00 10/05/20 01:25 Cyclobenzaprine HCl (Flexeril) 10 mg TID PRN PO MUSCLE SPASMS 10/02/20 22:55 Dextrose (Dextrose 50%) 25 ml ASDIRECTED PRN IV SEE LABEL COMMENTS 10/03/20 12:50 Diphenhydramine HCl (Benadryl) 50 mg STAT STAT IM 10/02/20 16:22 10/02/20 16:23 DC Emollient Cream (Vanicream) dry skin on b/l le and ue BID TOP 10/03/20 09:00 10/13/20 08:59 Glucagon (Glucagon) 1 mg ASDIRECTED PRN SC SEE LABEL COMMENTS 10/03/20 12:50 Glucose (Glucose) 16 GM ASDIRECTED PRN PO SEE LABEL COMMENTS 10/03/20 12:50 Ibuprofen (Advil) 200 mg WMHS PO 10/03/20 18:00 10/03/20 18:02 Insulin Human Lispro (HumaLOG INSULIN) SEE PROTOCOL TABLE AC SC 10/03/20 17:30 10/05/20 07:00 Insulin Human Lispro (HumaLOG INSULIN) See Protocol Table QHS SC 10/03/20 21:00 Lisinopril (Prinivil) 20 mg DAILY PO 10/03/20 09:00 10/05/20 08:46 Lorazepam (Ativan) 2 mg STAT STAT IM 10/02/20 16:22 10/02/20 16:23 DC Magnesium Hydroxide (Milk Of Magnesia) 30 ml DAILYPRN PRN PO CONSTIPATION 10/02/20 22:55 Meloxicam (Mobic) 15 mg DAILY PO 10/03/20 09:00 10/05/20 08:46 Metformin HCl (Glucophage) 1,000 mg BID@0800,1800 PO 10/03/20 18:00 10/05/20 08:46 Nicotine (Nicoderm Cq 21mg) 1 patch DAILY TD 10/03/20 09:00 Nystatin (Mycostatin Powder, Nystop) to b/l feet x 10 days BID TOP 10/03/20 09:00 10/13/20 08:59 Olanzapine (ZyPREXA ZYDIS) 10 mg Q4HP PRN PO AGITATION/ANXIETY 10/02/20 22:55 Paliperidone (Invega) 3 mg QAM PO 10/03/20 09:00 10/03/20 13:02 DC 10/03/20 12:34 Paliperidone (Invega) 3 mg QAM PO 10/05/20 09:00 10/05/20 08:46 Quetiapine Fumarate (SEROquel) 100 mg QHS PO 10/02/20 21:00 10/03/20 13:02 DC 10/02/20 23:39 Quetiapine Fumarate (SEROquel) 100 mg QHS PO 10/04/20 23:05 10/04/20 23:13 Quetiapine Fumarate (SEROquel) 200 mg QHS PO 10/03/20 21:00 10/04/20 23:08 DC Trazodone HCl (Desyrel) 300 mg QHS PO 10/02/20 21:00 10/03/20 13:02 DC 10/02/20 23:38 Trazodone HCl (Desyrel) 300 mg QHS PO 10/04/20 23:05 10/04/20 23:13 Allergies Coded Allergies: haloperidol (Verified Adverse Reaction, Unknown, unknown, 07/27/20) Per brother, there was a reaction in the past the detention. He was unable to describe the reaction. ARABELLA ARSHAD M.D. October 05, 2020 10:57
[2020-10-05 16:20] VITALS: BP 128/67
[2020-10-05] MEDS: QUEtiapine FUMARATE 100 MG TAB PO SCH (21:30)
[2020-10-05] MEDS: traZODone 100 MG TAB PO SCH (21:30)
[2020-10-06] MEDS: HumaLOG INSULIN (NovoLOG) PER UNIT SC SCH ×4 (06:44→21:00)
[2020-10-06] MEDS: IBUPROFEN PO SCH ×4 (08:00→21:00)
[2020-10-06] MEDS: NYSTATIN 100,000 UNITS/GM TOPICAL PWD 15 GM TOP SCH ×2 (09:00→21:00)
[2020-10-06] MEDS: NICOTINE 21MG/24HR 1 EA TRANSDERMAL TD SCH (09:00)
[2020-10-06] MEDS: VANICREAM MOISTURIZING SKIN CREAM 113GM TUBE TOP SCH ×2 (09:00→21:00)
[2020-10-06] MEDS: ACETAMINOPHEN 500 MG TAB PO SCH ×3 (09:00→21:00)
[2020-10-06] MEDS: PALIPERIDONE 3 MG ER TAB (INVEGA) PO SCH (09:09)
[2020-10-06] MEDS: MELOXICAM (MOBIC) 7.5 MG TAB PO SCH (09:09)
[2020-10-06] MEDS: metFORMIN (GLUCOPHAGE) 1000 MG TABLET PO SCH ×2 (09:11→17:15)
--- NOTE | 2020-10-06 11:20 | MHIPNPDOC ---
[facility] Progress Note Progress Note DATE OF SERVICE: 10/06/20 The patient is in bed most of the time and not very responsive when approached. Patient claims that he is feeling so so and not offering any new complaints. He is still very preoccupied with the wrong, quite disheveled and not productive at all, but no acting out behavior and cooperating with the medicine. He is already asking for a safe house at this point. HISTORY: . VITAL SIGNS: See below. NEW TEST RESULTS: . CURRENT MEDICATIONS: See below. MENTAL STATUS EXAMINATION: Patient is a 55-year old male, who is in bed and not very productive. Speech: Is , not productive. Language skills are for. Thought processes including: Regressed, withdrawn. Thought content: , Difficult to evaluate because he is not answering most of questions. Abstract reasoning, and computation: , Poor. Description of associations: For. Description of abnormal or psychotic thoughts: Was quite paranoid and delusional but now denies any. Judgment: , Poor. Insight: very poor. Orientation: Appears oriented [ R Follow-uecent and remote memory: [poor. Attention span and concentration: , Very poor. Language: . Fund of knowledge: , Poor. Mood: Irritable . Affect: Blunted preoccupied]. DIAGNOSES: 1. . Schizoaffective disorder 2. . 3. . ASSESSMENT:[, No significant change. Remains disheveled, withdrawn] MANAGEMENT PLAN: [. Continue the supportive therapy. His medications and discharge planning]. TIME SPENT: [15] minutes. Vital Signs Vital Signs Date Time Temp Pulse Resp B/P (MAP) Pulse Ox O2 Delivery O2 Flow Rate FiO2 10/06/20 09:09 130/71 10/05/20 16:20 98.1 99 16 96 Room Air Laboratory Data 24H Labs Laboratory Tests 2 10/05/20 11:44: Bedside Glucose (Misc Panel) 177H 10/05/20 16:55: Bedside Glucose (Misc Panel) 269H Current Medications Current Medications Medications (Trade) Dose Ordered Sig/Preston Route PRN Reason Start Time Stop Time Status Last Admin Dose Admin Acetaminophen (Tylenol Tab) 650 mg Q6HP PRN PO HEADACHE or DISCOMFORT 10/02/20 22:55 10/03/20 13:06 DC Acetaminophen (Tylenol Tab) 1,000 mg TID PO 10/03/20 16:00 Al Hydrox/Mg Hydrox/Simethicone (Mylanta) 30 ml Q4HP PRN PO HEARTBURN/INDIGESTION 10/02/20 22:55 Benzonatate (Tessalon Perles) 100 mg BIDP PRN PO COUGH 10/05/20 01:00 10/05/20 01:25 Cyclobenzaprine HCl (Flexeril) 10 mg TID PRN PO MUSCLE SPASMS 10/02/20 22:55 Dextrose (Dextrose 50%) 25 ml ASDIRECTED PRN IV SEE LABEL COMMENTS 10/03/20 12:50 Diphenhydramine HCl (Benadryl) 50 mg STAT STAT IM 10/02/20 16:22 10/02/20 16:23 DC Emollient Cream (Vanicream) dry skin on b/l le and ue BID TOP 10/03/20 09:00 10/13/20 08:59 Glucagon (Glucagon) 1 mg ASDIRECTED PRN SC SEE LABEL COMMENTS 10/03/20 12:50 Glucose (Glucose) 16 GM ASDIRECTED PRN PO SEE LABEL COMMENTS 10/03/20 12:50 Ibuprofen (Advil) 200 mg WMHS PO 10/03/20 18:00 10/03/20 18:02 Insulin Human Lispro (HumaLOG INSULIN) SEE PROTOCOL TABLE AC SC 10/03/20 17:30 10/05/20 17:02 Insulin Human Lispro (HumaLOG INSULIN) See Protocol Table QHS SC 10/03/20 21:00 Lisinopril (Prinivil) 20 mg DAILY PO 10/03/20 09:00 10/06/20 09:09 Lorazepam (Ativan) 2 mg STAT STAT IM 10/02/20 16:22 10/02/20 16:23 DC Magnesium Hydroxide (Milk Of Magnesia) 30 ml DAILYPRN PRN PO CONSTIPATION 10/02/20 22:55 Meloxicam (Mobic) 15 mg DAILY PO 10/03/20 09:00 10/06/20 09:09 Metformin HCl (Glucophage) 1,000 mg BID@0800,1800 PO 10/03/20 18:00 10/06/20 09:11 Nicotine (Nicoderm Cq 21mg) 1 patch DAILY TD 10/03/20 09:00 Nystatin (Mycostatin Powder, Nystop) to b/l feet x 10 days BID TOP 10/03/20 09:00 10/13/20 08:59 Olanzapine (ZyPREXA ZYDIS) 10 mg Q4HP PRN PO AGITATION/ANXIETY 10/02/20 22:55 Paliperidone (Invega) 3 mg QAM PO 10/03/20 09:00 10/03/20 13:02 DC 10/03/20 12:34 Paliperidone (Invega) 3 mg QAM PO 10/05/20 09:00 10/06/20 09:09 Quetiapine Fumarate (SEROquel) 100 mg QHS PO 10/02/20 21:00 10/03/20 13:02 DC 10/02/20 23:39 Quetiapine Fumarate (SEROquel) 100 mg QHS PO 10/04/20 23:05 10/05/20 21:30 Quetiapine Fumarate (SEROquel) 200 mg QHS PO 10/03/20 21:00 10/04/20 23:08 DC Trazodone HCl (Desyrel) 300 mg QHS PO 10/02/20 21:00 10/03/20 13:02 DC 10/02/20 23:38 Trazodone HCl (Desyrel) 300 mg QHS PO 10/04/20 23:05 10/05/20 21:30 Allergies Coded Allergies: haloperidol (Verified Adverse Reaction, Unknown, unknown, 07/27/20) Per brother, there was a reaction in the past the correction. He was unable to describe the reaction. ARABELLA ARSHAD M.D. October 06, 2020 11:20
[2020-10-06] MEDS: QUEtiapine FUMARATE 100 MG TAB PO SCH (21:10)
[2020-10-06] MEDS: traZODone 100 MG TAB PO SCH (21:10)
[2020-10-07] MEDS: HumaLOG INSULIN (NovoLOG) PER UNIT SC SCH ×4 (06:40→21:00)
[2020-10-07] MEDS: metFORMIN (GLUCOPHAGE) 1000 MG TABLET PO SCH ×2 (07:55→17:57)
[2020-10-07] MEDS: IBUPROFEN PO SCH ×4 (07:55→21:00)
[2020-10-07] MEDS: PALIPERIDONE 3 MG ER TAB (INVEGA) PO SCH (07:58)
[2020-10-07] MEDS: MELOXICAM (MOBIC) 7.5 MG TAB PO SCH (07:58)
[2020-10-07] MEDS: NICOTINE 21MG/24HR 1 EA TRANSDERMAL TD SCH (08:02)
[2020-10-07] MEDS: VANICREAM MOISTURIZING SKIN CREAM 113GM TUBE TOP SCH ×2 (08:02→21:00)
[2020-10-07] MEDS: NYSTATIN 100,000 UNITS/GM TOPICAL PWD 15 GM TOP SCH ×2 (08:02→21:00)
--- NOTE | 2020-10-07 08:55 | MHIPNPDOC ---
[facility] Progress Note Progress Note DATE OF SERVICE: 10/07/20 Patient remained in his bed most of the time, but is in control and not been so agitated and didn't require any extra medicine. He remains very guarded, regres sed, but slightly more responsive and asking for cough medicine, because of his occasional cough and feeling congested. There is denying any command hallucination. Denies any suicidal thoughts and continued to demand to contact his brother so he can arrange for housing but his brother has not returned the call to the strategic planner. His compliant with his medicine and has no co mplaint of side effect HISTORY: . VITAL SIGNS: See below. NEW TEST RESULTS: . CURRENT MEDICATIONS: See below. MENTAL STATUS EXAMINATION: Patient is a 55-year old male, who is later disheveled and withdrawn. Speech: Is minimum. Language skills are , poor. Thought processes including: Preoccupied and not spontaneous. Thought content: Denies any gross paranoia and denies any active hallucinations. Abstract reasoning, and computation: , Poor. Description of associations: , Poor. Description of abnormal or psychotic thoughts: [Patient is only reporting being worried about his housing Judgment: , Poor. Insight: very . poor. Orientation: Appears oriented. Recent and remote memory: , Poor. Attention span and concentration: , Poor. Language: . Fund of knowledge: Below average. Mood: , Some of it over preoccupied. Affect: [Labile]. DIAGNOSES: 1. . Schizoaffective disorder 2. ., Polysubstance abuse 3. . ASSESSMENT:[, No significant change, but is complying with the medications and no acting out behavior] MANAGEMENT PLAN: [. Continue current medicine and discharge planning]. TIME SPENT: [15] minutes. Vital Signs Vital Signs Date Time Temp Pulse Resp B/P (MAP) Pulse Ox O2 Delivery O2 Flow Rate FiO2 10/07/20 07:58 129/81 10/05/20 16:20 98.1 99 16 96 Room Air Current Medications Current Medications Medications (Trade) Dose Ordered Sig/Preston Route PRN Reason Start Time Stop Time Status Last Admin Dose Admin Acetaminophen (Tylenol Tab) 650 mg Q6HP PRN PO HEADACHE or DISCOMFORT 10/02/20 22:55 10/03/20 13:06 DC Acetaminophen (Tylenol Tab) 1,000 mg TID PO 10/03/20 16:00 Al Hydrox/Mg Hydrox/Simethicone (Mylanta) 30 ml Q4HP PRN PO HEARTBURN/INDIGESTION 10/02/20 22:55 Benzonatate (Tessalon Perles) 100 mg BIDP PRN PO COUGH 10/05/20 01:00 10/05/20 01:25 Cyclobenzaprine HCl (Flexeril) 10 mg TID PRN PO MUSCLE SPASMS 10/02/20 22:55 Dextrose (Dextrose 50%) 25 ml ASDIRECTED PRN IV SEE LABEL COMMENTS 10/03/20 12:50 Diphenhydramine HCl (Benadryl) 50 mg STAT STAT IM 10/02/20 16:22 10/02/20 16:23 DC Emollient Cream (Vanicream) dry skin on b/l le and ue BID TOP 10/03/20 09:00 10/13/20 08:59 Glucagon (Glucagon) 1 mg ASDIRECTED PRN SC SEE LABEL COMMENTS 10/03/20 12:50 Glucose (Glucose) 16 GM ASDIRECTED PRN PO SEE LABEL COMMENTS 10/03/20 12:50 Guaifenesin/ Dextromethorphan (Robitussin Dm) 10 ml Q6HP PRN PO COUGH 10/07/20 08:20 Ibuprofen (Advil) 200 mg WMHS PO 10/03/20 18:00 10/03/20 18:02 Insulin Human Lispro (HumaLOG INSULIN) SEE PROTOCOL TABLE AC SC 10/03/20 17:30 10/05/20 17:02 Insulin Human Lispro (HumaLOG INSULIN) See Protocol Table QHS SC 10/03/20 21:00 Lisinopril (Prinivil) 20 mg DAILY PO 10/03/20 09:00 10/07/20 07:58 Lorazepam (Ativan) 2 mg STAT STAT IM 10/02/20 16:22 10/02/20 16:23 DC Magnesium Hydroxide (Milk Of Magnesia) 30 ml DAILYPRN PRN PO CONSTIPATION 10/02/20 22:55 Meloxicam (Mobic) 15 mg DAILY PO 10/03/20 09:00 10/07/20 07:58 Metformin HCl (Glucophage) 1,000 mg BID@0800,1800 PO 10/03/20 18:00 10/07/20 07:55 Nicotine (Nicoderm Cq 21mg) 1 patch DAILY TD 10/03/20 09:00 Nystatin (Mycostatin Powder, Nystop) to b/l feet x 10 days BID TOP 10/03/20 09:00 10/13/20 08:59 Olanzapine (ZyPREXA ZYDIS) 10 mg Q4HP PRN PO AGITATION/ANXIETY 10/02/20 22:55 Paliperidone (Invega) 3 mg QAM PO 10/03/20 09:00 10/03/20 13:02 DC 10/03/20 12:34 Paliperidone (Invega) 3 mg QAM PO 10/05/20 09:00 10/07/20 07:58 Quetiapine Fumarate (SEROquel) 100 mg QHS PO 10/02/20 21:00 10/03/20 13:02 DC 10/02/20 23:39 Quetiapine Fumarate (SEROquel) 100 mg QHS PO 10/04/20 23:05 10/06/20 21:10 Quetiapine Fumarate (SEROquel) 200 mg QHS PO 10/03/20 21:00 10/04/20 23:08 DC Trazodone HCl (Desyrel) 300 mg QHS PO 10/02/20 21:00 10/03/20 13:02 DC 10/02/20 23:38 Trazodone HCl (Desyrel) 300 mg QHS PO 10/04/20 23:05 10/06/20 21:10 Allergies Coded Allergies: haloperidol (Verified Adverse Reaction, Unknown, unknown, 07/27/20) Per brother, there was a reaction in the past the retirement. He was unable to describe the reaction. ARABELLA ARSHAD M.D. October 07, 2020 08:55
[2020-10-07] MEDS: ACETAMINOPHEN 500 MG TAB PO SCH ×3 (09:00→21:00)
[2020-10-07] MEDS: BENZONATATE 100 MG CAP PO PRN (14:35)
[2020-10-07] MEDS: guaiFENesin DM LIQ 10ML UD PO PRN (14:36)
[2020-10-07] MEDS: QUEtiapine FUMARATE 100 MG TAB PO SCH (21:25)
[2020-10-07] MEDS: traZODone 100 MG TAB PO SCH (21:26)
[2020-10-08 06:26] VITALS: BP 132/63
[2020-10-08] MEDS: HumaLOG INSULIN (NovoLOG) PER UNIT SC SCH ×4 (06:50→21:00)
[2020-10-08] MEDS: IBUPROFEN PO SCH ×4 (08:00→21:00)
[2020-10-08 09:00] VITALS: BP 135/60
[2020-10-08] MEDS: NICOTINE 21MG/24HR 1 EA TRANSDERMAL TD SCH (09:00)
[2020-10-08] MEDS: VANICREAM MOISTURIZING SKIN CREAM 113GM TUBE TOP SCH ×2 (09:00→21:00)
[2020-10-08] MEDS: NYSTATIN 100,000 UNITS/GM TOPICAL PWD 15 GM TOP SCH ×2 (09:00→21:00)
[2020-10-08] MEDS: ACETAMINOPHEN 500 MG TAB PO SCH ×3 (09:00→21:00)
[2020-10-08] MEDS: PALIPERIDONE 3 MG ER TAB (INVEGA) PO SCH (09:25)
[2020-10-08] MEDS: MELOXICAM (MOBIC) 7.5 MG TAB PO SCH (09:26)
[2020-10-08] MEDS: BENZONATATE 100 MG CAP PO PRN (09:27)
[2020-10-08] MEDS: guaiFENesin DM LIQ 10ML UD PO PRN (09:27)
[2020-10-08] MEDS: metFORMIN (GLUCOPHAGE) 1000 MG TABLET PO SCH ×2 (09:29→17:11)
--- NOTE | 2020-10-08 11:01 | MHIPNPDOC ---
[facility] Progress Note Progress Note DATE OF SERVICE: 10/08/20 , There is absolutely no change in his mental status and his behavior. He is spending most of time in bed, appears very disheveled, preoccupied, but not been agitated or aggressive. His only responding with yes and no and reports no new complaints but asking for his brother so he can have a place to stay. He is very regressed, but is not showing any dangerous behavior and appears to be in need of the supportive assisted living. HISTORY: . VITAL SIGNS: See below. NEW TEST RESULTS: . CURRENT MEDICATIONS: See below. MENTAL STATUS EXAMINATION: Patient is a 55-year old male, who is , very disheveled and not very verbal. Speech: Is , not productive. Language skills are , poor. Thought processes including: Regressed, poverty of thoughts. Thought content: Not very verbal . Abstract reasoning, and computation: , Poor. Description of associations: , Poor. Description of abnormal or psychotic thoughts: Appears very regressed and withdrawn. Judgment: , Poor. Insight: very . poor. Orientation: Appears oriented to place . Recent and remote memory: , Poor. Attention span and concentration: Poor . Language: . Fund of knowledge: Below average. Mood: [, Anxious, withdrawn]. Affect: [, Blunted, preoccupied]. DIAGNOSES: 1. . Schizoaffective disorder 2. ., Polysubstance abuse 3. . ASSESSMENT:[no improvement remains markedly withdrawn and regressed] MANAGEMENT PLAN: [. Continue with the current medicine and looking for supportive living]. TIME SPENT: [15] minutes. Vital Signs Vital Signs Date Time Temp Pulse Resp B/P (MAP) Pulse Ox O2 Delivery O2 Flow Rate FiO2 10/08/20 09:26 135/60 10/08/20 06:26 99.3 94 18 93 Room Air Laboratory Data 24H Labs Laboratory Tests 2 10/07/20 11:43: Bedside Glucose (Misc Panel) 175H Current Medications Current Medications Medications (Trade) Dose Ordered Sig/Preston Route PRN Reason Start Time Stop Time Status Last Admin Dose Admin Acetaminophen (Tylenol Tab) 650 mg Q6HP PRN PO HEADACHE or DISCOMFORT 10/02/20 22:55 10/03/20 13:06 DC Acetaminophen (Tylenol Tab) 1,000 mg TID PO 10/03/20 16:00 Al Hydrox/Mg Hydrox/Simethicone (Mylanta) 30 ml Q4HP PRN PO HEARTBURN/INDIGESTION 10/02/20 22:55 Benzonatate (Tessalon Perles) 100 mg BIDP PRN PO COUGH 10/05/20 01:00 10/08/20 09:27 Cyclobenzaprine HCl (Flexeril) 10 mg TID PRN PO MUSCLE SPASMS 10/02/20 22:55 Dextrose (Dextrose 50%) 25 ml ASDIRECTED PRN IV SEE LABEL COMMENTS 10/03/20 12:50 Diphenhydramine HCl (Benadryl) 50 mg STAT STAT IM 10/02/20 16:22 10/02/20 16:23 DC Emollient Cream (Vanicream) dry skin on b/l le and ue BID TOP 10/03/20 09:00 10/13/20 08:59 Glucagon (Glucagon) 1 mg ASDIRECTED PRN SC SEE LABEL COMMENTS 10/03/20 12:50 Glucose (Glucose) 16 GM ASDIRECTED PRN PO SEE LABEL COMMENTS 10/03/20 12:50 Guaifenesin/ Dextromethorphan (Robitussin Dm) 10 ml Q6HP PRN PO COUGH 10/07/20 08:20 10/08/20 09:27 Ibuprofen (Advil) 200 mg WMHS PO 10/03/20 18:00 10/03/20 18:02 Insulin Human Lispro (HumaLOG INSULIN) SEE PROTOCOL TABLE AC SC 10/03/20 17:30 10/07/20 11:46 Insulin Human Lispro (HumaLOG INSULIN) See Protocol Table QHS SC 10/03/20 21:00 Lisinopril (Prinivil) 20 mg DAILY PO 10/03/20 09:00 10/08/20 09:26 Lorazepam (Ativan) 2 mg STAT STAT IM 10/02/20 16:22 10/02/20 16:23 DC Magnesium Hydroxide (Milk Of Magnesia) 30 ml DAILYPRN PRN PO CONSTIPATION 10/02/20 22:55 Meloxicam (Mobic) 15 mg DAILY PO 10/03/20 09:00 10/08/20 09:26 Metformin HCl (Glucophage) 1,000 mg BID@0800,1800 PO 10/03/20 18:00 10/08/20 09:29 Nicotine (Nicoderm Cq 21mg) 1 patch DAILY TD 10/03/20 09:00 Nystatin (Mycostatin Powder, Nystop) to b/l feet x 10 days BID TOP 10/03/20 09:00 10/13/20 08:59 Olanzapine (ZyPREXA ZYDIS) 10 mg Q4HP PRN PO AGITATION/ANXIETY 10/02/20 22:55 Paliperidone (Invega) 3 mg QAM PO 10/03/20 09:00 10/03/20 13:02 DC 10/03/20 12:34 Paliperidone (Invega) 3 mg QAM PO 10/05/20 09:00 10/08/20 09:25 Quetiapine Fumarate (SEROquel) 100 mg QHS PO 10/02/20 21:00 10/03/20 13:02 DC 10/02/20 23:39 Quetiapine Fumarate (SEROquel) 100 mg QHS PO 10/04/20 23:05 10/07/20 21:25 Quetiapine Fumarate (SEROquel) 200 mg QHS PO 10/03/20 21:00 10/04/20 23:08 DC Trazodone HCl (Desyrel) 300 mg QHS PO 10/02/20 21:00 10/03/20 13:02 DC 10/02/20 23:38 Trazodone HCl (Desyrel) 300 mg QHS PO 10/04/20 23:05 10/07/20 21:26 Allergies Coded Allergies: haloperidol (Verified Adverse Reaction, Unknown, unknown, 07/27/20) Per brother, there was a reaction in the past the group home. He was unable to describe the reaction. ARABELLA ARSHAD M.D. October 08, 2020 11:01
[2020-10-08 16:40] VITALS: BP 123/70
[2020-10-08] MEDS: traZODone 100 MG TAB PO SCH (21:00)
[2020-10-08] MEDS: QUEtiapine FUMARATE 100 MG TAB PO SCH (21:00)
[2020-10-09] MEDS: BENZONATATE 100 MG CAP PO PRN ×2 (01:17→08:52)
[2020-10-09] MEDS: traZODone 100 MG TAB PO SCH ×2 (01:21→21:18)
[2020-10-09] MEDS: QUEtiapine FUMARATE 100 MG TAB PO SCH ×2 (01:21→21:18)
[2020-10-09] MEDS: guaiFENesin DM LIQ 10ML UD PO PRN ×2 (01:34→08:52)
[2020-10-09] MEDS: HumaLOG INSULIN (NovoLOG) PER UNIT SC SCH ×4 (06:39→21:00)
[2020-10-09 06:42] VITALS: BP 107/55
[2020-10-09] MEDS: IBUPROFEN PO SCH ×5 (08:00→21:19)
[2020-10-09] MEDS: PALIPERIDONE 3 MG ER TAB (INVEGA) PO SCH (08:53)
[2020-10-09] MEDS: metFORMIN (GLUCOPHAGE) 1000 MG TABLET PO SCH ×2 (08:53→17:10)
[2020-10-09] MEDS: ACETAMINOPHEN 500 MG TAB PO SCH (08:54)
[2020-10-09] MEDS: VANICREAM MOISTURIZING SKIN CREAM 113GM TUBE TOP SCH (08:54)
[2020-10-09] MEDS: NYSTATIN 100,000 UNITS/GM TOPICAL PWD 15 GM TOP SCH (08:54)
[2020-10-09] MEDS: MELOXICAM (MOBIC) 7.5 MG TAB PO SCH (08:54)
[2020-10-09] MEDS ORDERED: VANICREAM MOISTURIZING SKIN CREAM 113GM TUBE TOP PRN (09:05)
--- NOTE | 2020-10-09 09:56 | MHIPNPDOC ---
[facility] Progress Note Progress Note DATE OF SERVICE: 10/09/20 The patient is spending most of his time in bed but is cooperating with his psychotropic medicines. He is a however, quite intermittent, in terms of taking his medical medications. He remains disheveled, quite withdrawn and not very productive and again asking to contact his brother for housing. He is superficially denies any hallucinations. Denies any paranoid fear and denies any lethality issues. He is withdrawn, quite regressed, but no acting out behavior and probably is in need of some type of supervised living. HISTORY: . VITAL SIGNS: See below. NEW TEST RESULTS: . CURRENT MEDICATIONS: See below. MENTAL STATUS EXAMINATION: Patient is a 55-year old male, who is in no acute distress. Speech: Is very limited, not productive. Language skills are , poor. Thought processes including: Poverty of thoughts. Thought content: Poverty of thoughts. Abstract reasoning, and computation: , Poor. Description of associations: For. Description of abnormal or psychotic thoughts: Regressed, withdrawn, with poverty of thoughts. Judgment: Poor . Insight: very poor. Orientation: Appears oriented . Recent and remote memory: , Poor. Attention span and concentration: , Poor. Language: . Fund of knowledge: Below average. Mood: Irritable. Affect: Blunted, labile . DIAGNOSES: 1. Schizoaffective disorder. 2. Polysubstance abuse. 3. . ASSESSMENT:[, No significant change] MANAGEMENT PLAN: Continue with the current treatment probably needs supervised living . TIME SPENT: [15] minutes. Vital Signs Vital Signs Date Time Temp Pulse Resp B/P (MAP) Pulse Ox O2 Delivery O2 Flow Rate FiO2 10/09/20 06:42 97.6 94 20 107/55 (72) 99 Room Air Laboratory Data 24H Labs Laboratory Tests 2 10/08/20 12:12: Bedside Glucose (Misc Panel) 186H 10/08/20 17:01: Bedside Glucose (Misc Panel) 176H Current Medications Current Medications Medications (Trade) Dose Ordered Sig/Preston Route PRN Reason Start Time Stop Time Status Last Admin Dose Admin Acetaminophen (Tylenol Tab) 650 mg Q6HP PRN PO HEADACHE or DISCOMFORT 10/02/20 22:55 10/03/20 13:06 DC Acetaminophen (Tylenol Tab) 1,000 mg TID PO 10/03/20 16:00 10/09/20 09:08 DC Al Hydrox/Mg Hydrox/Simethicone (Mylanta) 30 ml Q4HP PRN PO HEARTBURN/INDIGESTION 10/02/20 22:55 Benzonatate (Tessalon Perles) 100 mg BIDP PRN PO COUGH 10/05/20 01:00 10/09/20 08:52 Cyclobenzaprine HCl (Flexeril) 10 mg TID PRN PO MUSCLE SPASMS 10/02/20 22:55 Dextrose (Dextrose 50%) 25 ml ASDIRECTED PRN IV SEE LABEL COMMENTS 10/03/20 12:50 Diphenhydramine HCl (Benadryl) 50 mg STAT STAT IM 10/02/20 16:22 10/02/20 16:23 DC Emollient Cream (Vanicream) dry skin on b/l le and ue BID TOP 10/03/20 09:00 10/09/20 09:08 DC Emollient Cream (Vanicream) dry skin on b/l le and ue BID PRN TOP DRY SKIN 10/09/20 09:05 10/13/20 08:59 Glucagon (Glucagon) 1 mg ASDIRECTED PRN SC SEE LABEL COMMENTS 10/03/20 12:50 Glucose (Glucose) 16 GM ASDIRECTED PRN PO SEE LABEL COMMENTS 10/03/20 12:50 Guaifenesin/ Dextromethorphan (Robitussin Dm) 10 ml Q6HP PRN PO COUGH 10/07/20 08:20 10/09/20 08:52 Ibuprofen (Advil) 200 mg WMHS PO 10/03/20 18:00 10/03/20 18:02 Insulin Human Lispro (HumaLOG INSULIN) SEE PROTOCOL TABLE AC SC 10/03/20 17:30 10/08/20 17:10 Insulin Human Lispro (HumaLOG INSULIN) See Protocol Table QHS SC 10/03/20 21:00 Lisinopril (Prinivil) 20 mg DAILY PO 10/03/20 09:00 10/08/20 09:26 Lorazepam (Ativan) 2 mg STAT STAT IM 10/02/20 16:22 10/02/20 16:23 DC Magnesium Hydroxide (Milk Of Magnesia) 30 ml DAILYPRN PRN PO CONSTIPATION 10/02/20 22:55 Meloxicam (Mobic) 15 mg DAILY PO 10/03/20 09:00 10/08/20 09:26 Metformin HCl (Glucophage) 1,000 mg BID@0800,1800 PO 10/03/20 18:00 10/09/20 08:53 Nicotine (Nicoderm Cq 21mg) 1 patch DAILY TD 10/03/20 09:00 10/09/20 08:59 DC Nystatin (Mycostatin Powder, Nystop) to b/l feet x 10 days BID TOP 10/03/20 09:00 10/09/20 09:08 DC Olanzapine (ZyPREXA ZYDIS) 10 mg Q4HP PRN PO AGITATION/ANXIETY 10/02/20 22:55 Paliperidone (Invega) 3 mg QAM PO 10/03/20 09:00 10/03/20 13:02 DC 10/03/20 12:34 Paliperidone (Invega) 3 mg QAM PO 10/05/20 09:00 10/09/20 08:53 Quetiapine Fumarate (SEROquel) 100 mg QHS PO 10/02/20 21:00 10/03/20 13:02 DC 10/02/20 23:39 Quetiapine Fumarate (SEROquel) 100 mg QHS PO 10/04/20 23:05 10/09/20 01:21 Quetiapine Fumarate (SEROquel) 200 mg QHS PO 10/03/20 21:00 10/04/20 23:08 DC Trazodone HCl (Desyrel) 300 mg QHS PO 10/02/20 21:00 10/03/20 13:02 DC 10/02/20 23:38 Trazodone HCl (Desyrel) 300 mg QHS PO 10/04/20 23:05 10/09/20 01:21 Allergies Coded Allergies: haloperidol (Verified Adverse Reaction, Unknown, unknown, 07/27/20) Per brother, there was a reaction in the past the longterm. He was unable to describe the reaction. ARABELLA ARSHAD M.D. October 09, 2020 09:56
[2020-10-09 16:06] VITALS: BP 131/79
[2020-10-10] MEDS: HumaLOG INSULIN (NovoLOG) PER UNIT SC SCH ×4 (06:57→20:52)
[2020-10-10] MEDS: IBUPROFEN PO SCH ×4 (08:00→20:51)
[2020-10-10 09:14] VITALS: BP 126/80
[2020-10-10] MEDS: metFORMIN (GLUCOPHAGE) 1000 MG TABLET PO SCH ×2 (09:19→17:05)
[2020-10-10] MEDS: MELOXICAM (MOBIC) 7.5 MG TAB PO SCH (09:19)
[2020-10-10] MEDS: PALIPERIDONE 3 MG ER TAB (INVEGA) PO SCH (09:19)
--- NOTE | 2020-10-10 10:58 | MHIPNPDOC ---
[facility] Progress Note Progress Note DATE OF SERVICE: 10/10/20 , Not as hostile and in good control, but remains extremely disheveled, withdrawn and regressed. He is denying any hallucination and denies any suicidal thoughts and only asking for his brother and asking for a place to stay HISTORY: . VITAL SIGNS: See below. NEW TEST RESULTS: . CURRENT MEDICATIONS: See below. MENTAL STATUS EXAMINATION: Patient is a 55-year old male, who is in bed. Speech: Is , not productive. Language skills are , poor. Thought processes including: , Not productive, but relevant. Thought content: Denies any problems. Abstract reasoning, and computation: For. Description of associations: ., Poor Description of abnormal or psychotic thoughts: Regressed. Judgment: Poor . Insight: very poor. Orientation: Appears oriented. Recent and remote memory: , Poor. Attention span and concentration: , Poor. Language: . Fund of knowledge: , Poor. Mood: Reports feeling okay. Affect: Blunted. DIAGNOSES: 1. . Schizoaffective disorder 2. ., Polysubstance abuse 3. . ASSESSMENT:, No significant change, but no acting out behavior] MANAGEMENT PLAN: Continue with the safe discharge planning with the placement in safe housing . TIME SPENT: [15] minutes. Vital Signs Vital Signs Date Time Temp Pulse Resp B/P (MAP) Pulse Ox O2 Delivery O2 Flow Rate FiO2 10/10/20 09:31 Room Air 10/10/20 09:19 126/80 10/10/20 09:14 97.4 89 18 10/09/20 06:42 99 Laboratory Data 24H Labs Laboratory Tests 2 10/09/20 12:02: Bedside Glucose (Misc Panel) 163H 10/09/20 21:11: Bedside Glucose (Misc Panel) 155H 10/10/20 06:47: Bedside Glucose (Misc Panel) 187H Current Medications Current Medications Medications (Trade) Dose Ordered Sig/Preston Route PRN Reason Start Time Stop Time Status Last Admin Dose Admin Acetaminophen (Tylenol Tab) 650 mg Q6HP PRN PO HEADACHE or DISCOMFORT 10/02/20 22:55 10/03/20 13:06 DC Acetaminophen (Tylenol Tab) 1,000 mg TID PO 10/03/20 16:00 10/09/20 09:08 DC Al Hydrox/Mg Hydrox/Simethicone (Mylanta) 30 ml Q4HP PRN PO HEARTBURN/INDIGESTION 10/02/20 22:55 Benzonatate (Tessalon Perles) 100 mg BIDP PRN PO COUGH 10/05/20 01:00 10/09/20 08:52 Cyclobenzaprine HCl (Flexeril) 10 mg TID PRN PO MUSCLE SPASMS 10/02/20 22:55 Dextrose (Dextrose 50%) 25 ml ASDIRECTED PRN IV SEE LABEL COMMENTS 10/03/20 12:50 Diphenhydramine HCl (Benadryl) 50 mg STAT STAT IM 10/02/20 16:22 10/02/20 16:23 DC Emollient Cream (Vanicream) dry skin on b/l le and ue BID TOP 10/03/20 09:00 10/09/20 09:08 DC Emollient Cream (Vanicream) dry skin on b/l le and ue BID PRN TOP DRY SKIN 10/09/20 09:05 10/13/20 08:59 Glucagon (Glucagon) 1 mg ASDIRECTED PRN SC SEE LABEL COMMENTS 10/03/20 12:50 Glucose (Glucose) 16 GM ASDIRECTED PRN PO SEE LABEL COMMENTS 10/03/20 12:50 Guaifenesin/ Dextromethorphan (Robitussin Dm) 10 ml Q6HP PRN PO COUGH 10/07/20 08:20 10/09/20 08:52 Ibuprofen (Advil) 200 mg WMHS PO 10/03/20 18:00 10/03/20 18:02 Insulin Human Lispro (HumaLOG INSULIN) SEE PROTOCOL TABLE AC SC 10/03/20 17:30 10/10/20 06:57 Insulin Human Lispro (HumaLOG INSULIN) See Protocol Table QHS SC 10/03/20 21:00 Lisinopril (Prinivil) 20 mg DAILY PO 10/03/20 09:00 10/10/20 09:19 Lorazepam (Ativan) 2 mg STAT STAT IM 10/02/20 16:22 10/02/20 16:23 DC Magnesium Hydroxide (Milk Of Magnesia) 30 ml DAILYPRN PRN PO CONSTIPATION 10/02/20 22:55 Meloxicam (Mobic) 15 mg DAILY PO 10/03/20 09:00 10/10/20 09:19 Metformin HCl (Glucophage) 1,000 mg BID@0800,1800 PO 10/03/20 18:00 10/10/20 09:19 Nicotine (Nicoderm Cq 21mg) 1 patch DAILY TD 10/03/20 09:00 10/09/20 08:59 DC Nystatin (Mycostatin Powder, Nystop) to b/l feet x 10 days BID TOP 10/03/20 09:00 10/09/20 09:08 DC Olanzapine (ZyPREXA ZYDIS) 10 mg Q4HP PRN PO AGITATION/ANXIETY 10/02/20 22:55 Paliperidone (Invega) 3 mg QAM PO 10/03/20 09:00 10/03/20 13:02 DC 10/03/20 12:34 Paliperidone (Invega) 3 mg QAM PO 10/05/20 09:00 10/10/20 09:19 Quetiapine Fumarate (SEROquel) 100 mg QHS PO 10/02/20 21:00 10/03/20 13:02 DC 10/02/20 23:39 Quetiapine Fumarate (SEROquel) 100 mg QHS PO 10/04/20 23:05 10/09/20 21:18 Quetiapine Fumarate (SEROquel) 200 mg QHS PO 10/03/20 21:00 10/04/20 23:08 DC Trazodone HCl (Desyrel) 300 mg QHS PO 10/02/20 21:00 10/03/20 13:02 DC 10/02/20 23:38 Trazodone HCl (Desyrel) 300 mg QHS PO 10/04/20 23:05 10/09/20 21:18 Allergies Coded Allergies: haloperidol (Verified Adverse Reaction, Unknown, unknown, 07/27/20) Per brother, there was a reaction in the past the senior care. He was unable to describe the reaction. ARABELLA ARSHAD M.D. October 10, 2020 10:58
[2020-10-10 18:04] VITALS: BP 128/61
[2020-10-10] MEDS: traZODone 100 MG TAB PO SCH (20:51)
[2020-10-10] MEDS: QUEtiapine FUMARATE 100 MG TAB PO SCH (20:51)
[2020-10-11] MEDS: HumaLOG INSULIN (NovoLOG) PER UNIT SC SCH ×4 (06:39→20:55)
[2020-10-11] MEDS: IBUPROFEN PO SCH ×5 (08:00→20:55)
[2020-10-11] MEDS: PALIPERIDONE 3 MG ER TAB (INVEGA) PO SCH (09:04)
[2020-10-11] MEDS: metFORMIN (GLUCOPHAGE) 1000 MG TABLET PO SCH ×2 (09:05→17:58)
[2020-10-11] MEDS: MELOXICAM (MOBIC) 7.5 MG TAB PO SCH (09:08)
--- NOTE | 2020-10-11 10:42 | MHIPNPDOC ---
[facility] Progress Note Progress Note DATE OF SERVICE: 10/11/20 . He does not appear as angry or hostile, and actually reported that he is feeling okay. Is still very withdrawn and staying in bed but not irritable or angry and not been agitated and denies any new problems. He understands that he needs help with housing and is willing to cooperate. He was explained that he is being referred to several possible housing options HISTORY: . VITAL SIGNS: See below. NEW TEST RESULTS: . CURRENT MEDICATIONS: See below. MENTAL STATUS EXAMINATION: Patient is a 55-year old male, who is in no acute distress. Speech: Is , not productive. Language skills are , poor. Thought processes including: Relevant response . Thought content: Denies any problem. Abstract reasoning, and computation: , Poor. Description of associations: Relevant. Description of abnormal or psychotic thoughts: Denies any hallucination and denies any paranoia. Judgment: , Poor. Insight: very poor. Orientation: , Oriented to place. Recent and remote memory: , Poor. Attention span and concentration: For. Language: . Fund of knowledge: , Poor. Mood: Euthymic. Affect: Blunted. DIAGNOSES: 1. . Schizoaffective disorder 2. ., Polysubstance abuse 3. . ASSESSMENT:No basic change, but not exhibiting any acute psychotic symptoms and is willing to cooperate MANAGEMENT PLAN: Looking for supportive housing]. TIME SPENT: 15 minutes. Vital Signs Vital Signs Date Time Temp Pulse Resp B/P (MAP) Pulse Ox O2 Delivery O2 Flow Rate FiO2 10/11/20 09:19 137/72 10/10/20 18:04 99.5 87 16 10/10/20 09:31 Room Air 10/09/20 06:42 99 Laboratory Data 24H Labs Laboratory Tests 2 10/10/20 11:46: Bedside Glucose (Misc Panel) 194H 10/10/20 17:01: Bedside Glucose (Misc Panel) 130H Current Medications Current Medications Medications (Trade) Dose Ordered Sig/Preston Route PRN Reason Start Time Stop Time Status Last Admin Dose Admin Acetaminophen (Tylenol Tab) 650 mg Q6HP PRN PO HEADACHE or DISCOMFORT 10/02/20 22:55 10/03/20 13:06 DC Acetaminophen (Tylenol Tab) 1,000 mg TID PO 10/03/20 16:00 10/09/20 09:08 DC Al Hydrox/Mg Hydrox/Simethicone (Mylanta) 30 ml Q4HP PRN PO HEARTBURN/INDIGESTION 10/02/20 22:55 Benzonatate (Tessalon Perles) 100 mg BIDP PRN PO COUGH 10/05/20 01:00 10/09/20 08:52 Cyclobenzaprine HCl (Flexeril) 10 mg TID PRN PO MUSCLE SPASMS 10/02/20 22:55 Dextrose (Dextrose 50%) 25 ml ASDIRECTED PRN IV SEE LABEL COMMENTS 10/03/20 12:50 Diphenhydramine HCl (Benadryl) 50 mg STAT STAT IM 10/02/20 16:22 10/02/20 16:23 DC Emollient Cream (Vanicream) dry skin on b/l le and ue BID TOP 10/03/20 09:00 10/09/20 09:08 DC Emollient Cream (Vanicream) dry skin on b/l le and ue BID PRN TOP DRY SKIN 10/09/20 09:05 10/13/20 08:59 Glucagon (Glucagon) 1 mg ASDIRECTED PRN SC SEE LABEL COMMENTS 10/03/20 12:50 Glucose (Glucose) 16 GM ASDIRECTED PRN PO SEE LABEL COMMENTS 10/03/20 12:50 Guaifenesin/ Dextromethorphan (Robitussin Dm) 10 ml Q6HP PRN PO COUGH 10/07/20 08:20 10/09/20 08:52 Ibuprofen (Advil) 200 mg WMHS PO 10/03/20 18:00 10/03/20 18:02 Insulin Human Lispro (HumaLOG INSULIN) SEE PROTOCOL TABLE AC SC 10/03/20 17:30 10/10/20 11:51 Insulin Human Lispro (HumaLOG INSULIN) See Protocol Table QHS SC 10/03/20 21:00 Lisinopril (Prinivil) 20 mg DAILY PO 10/03/20 09:00 10/11/20 09:19 Lorazepam (Ativan) 2 mg STAT STAT IM 10/02/20 16:22 10/02/20 16:23 DC Magnesium Hydroxide (Milk Of Magnesia) 30 ml DAILYPRN PRN PO CONSTIPATION 10/02/20 22:55 Meloxicam (Mobic) 15 mg DAILY PO 10/03/20 09:00 10/11/20 09:08 Metformin HCl (Glucophage) 1,000 mg BID@0800,1800 PO 10/03/20 18:00 10/11/20 09:05 Nicotine (Nicoderm Cq 21mg) 1 patch DAILY TD 10/03/20 09:00 10/09/20 08:59 DC Nystatin (Mycostatin Powder, Nystop) to b/l feet x 10 days BID TOP 10/03/20 09:00 10/09/20 09:08 DC Olanzapine (ZyPREXA ZYDIS) 10 mg Q4HP PRN PO AGITATION/ANXIETY 10/02/20 22:55 Paliperidone (Invega) 3 mg QAM PO 10/03/20 09:00 10/03/20 13:02 DC 10/03/20 12:34 Paliperidone (Invega) 3 mg QAM PO 10/05/20 09:00 10/11/20 09:04 Quetiapine Fumarate (SEROquel) 100 mg QHS PO 10/02/20 21:00 10/03/20 13:02 DC 10/02/20 23:39 Quetiapine Fumarate (SEROquel) 100 mg QHS PO 10/04/20 23:05 10/10/20 20:51 Quetiapine Fumarate (SEROquel) 200 mg QHS PO 10/03/20 21:00 10/04/20 23:08 DC Trazodone HCl (Desyrel) 300 mg QHS PO 10/02/20 21:00 10/03/20 13:02 DC 10/02/20 23:38 Trazodone HCl (Desyrel) 300 mg QHS PO 10/04/20 23:05 10/10/20 20:51 Allergies Coded Allergies: haloperidol (Verified Adverse Reaction, Unknown, unknown, 07/27/20) Per brother, there was a reaction in the past the [place] [facility]. He was unable to describe the reaction. ARABELLA ARSHAD M.D. October 11, 2020 10:42
[2020-10-11 16:03] VITALS: BP 144/87
[2020-10-11] MEDS: traZODone 100 MG TAB PO SCH (20:54)
[2020-10-11] MEDS: QUEtiapine FUMARATE 100 MG TAB PO SCH (20:54)
[2020-10-12] MEDS: HumaLOG INSULIN (NovoLOG) PER UNIT SC SCH ×4 (07:30→20:47)
[2020-10-12] MEDS: IBUPROFEN PO SCH ×4 (08:00→20:47)
[2020-10-12] MEDS: metFORMIN (GLUCOPHAGE) 1000 MG TABLET PO SCH ×2 (08:55→17:04)
[2020-10-12] MEDS: PALIPERIDONE 3 MG ER TAB (INVEGA) PO SCH (09:58)
[2020-10-12] MEDS: MELOXICAM (MOBIC) 7.5 MG TAB PO SCH (09:58)
--- NOTE | 2020-10-12 10:55 | MHIPNPDOC ---
[facility] Progress Note Progress Note DATE OF SERVICE: 10/12/20 Patient remained in bed and showing no acting out behavior, but very withdrawn and preoccupied. He is cooperating with the medicine and willing to cooperate wi th the discharge plan. 2. Supervised a supportive living. HISTORY: . VITAL SIGNS: See below. NEW TEST RESULTS: . CURRENT MEDICATIONS: See below. MENTAL STATUS EXAMINATION: Patient is a 55-year old male, who is ., Disheveled and withdrawn Speech: Is , not productive. Language skills are , poor. Thought processes including: Relevant, but not productive . Thought content: Denies any problem. Abstract reasoning, and computation: , Poor. Description of associations: For. Description of abnormal or psychotic thoughts: Denies any hallucination or paranoia and denies any suicidal thoughts. Judgment: , Poor. Insight: poor. Orientation: Appears oriented. Recent and remote memory: , Poor. Attention span and concentration: Poor]. Language: . Fund of knowledge: , Poor. Mood: Reports feeling okay. Affect: Blunted. DIAGNOSES: 1. . Schizoaffective disorder 2. . Polysubstance abuse 3. . ASSESSMENT:Remained withdrawn, preoccupied, regressed, but no acute distress MANAGEMENT PLAN: Referred to a supportive living. TIME SPENT: 15 minutes. Vital Signs Vital Signs Date Time Temp Pulse Resp B/P (MAP) Pulse Ox O2 Delivery O2 Flow Rate FiO2 10/12/20 10:03 138/88 10/11/20 16:03 99.2 100 16 10/10/20 09:31 Room Air 10/09/20 06:42 99 Laboratory Data 24H Labs Laboratory Tests 2 10/11/20 15:37: Bedside Glucose (Misc Panel) 221H 10/11/20 17:15: Bedside Glucose (Misc Panel) 236H Current Medications Current Medications Medications (Trade) Dose Ordered Sig/Preston Route PRN Reason Start Time Stop Time Status Last Admin Dose Admin Acetaminophen (Tylenol Tab) 650 mg Q6HP PRN PO HEADACHE or DISCOMFORT 10/02/20 22:55 10/03/20 13:06 DC Acetaminophen (Tylenol Tab) 1,000 mg TID PO 10/03/20 16:00 10/09/20 09:08 DC Al Hydrox/Mg Hydrox/Simethicone (Mylanta) 30 ml Q4HP PRN PO HEARTBURN/INDIGESTION 10/02/20 22:55 Benzonatate (Tessalon Perles) 100 mg BIDP PRN PO COUGH 10/05/20 01:00 10/09/20 08:52 Cyclobenzaprine HCl (Flexeril) 10 mg TID PRN PO MUSCLE SPASMS 10/02/20 22:55 Dextrose (Dextrose 50%) 25 ml ASDIRECTED PRN IV SEE LABEL COMMENTS 10/03/20 12:50 Diphenhydramine HCl (Benadryl) 50 mg STAT STAT IM 10/02/20 16:22 10/02/20 16:23 DC Emollient Cream (Vanicream) dry skin on b/l le and ue BID TOP 10/03/20 09:00 10/09/20 09:08 DC Emollient Cream (Vanicream) dry skin on b/l le and ue BID PRN TOP DRY SKIN 10/09/20 09:05 10/13/20 08:59 Glucagon (Glucagon) 1 mg ASDIRECTED PRN SC SEE LABEL COMMENTS 10/03/20 12:50 Glucose (Glucose) 16 GM ASDIRECTED PRN PO SEE LABEL COMMENTS 10/03/20 12:50 Guaifenesin/ Dextromethorphan (Robitussin Dm) 10 ml Q6HP PRN PO COUGH 10/07/20 08:20 10/09/20 08:52 Ibuprofen (Advil) 200 mg WMHS PO 10/03/20 18:00 10/03/20 18:02 Insulin Human Lispro (HumaLOG INSULIN) SEE PROTOCOL TABLE AC SC 10/03/20 17:30 10/11/20 17:28 Insulin Human Lispro (HumaLOG INSULIN) See Protocol Table QHS SC 10/03/20 21:00 Lisinopril (Prinivil) 20 mg DAILY PO 10/03/20 09:00 10/12/20 10:03 Lorazepam (Ativan) 2 mg STAT STAT IM 10/02/20 16:22 10/02/20 16:23 DC Magnesium Hydroxide (Milk Of Magnesia) 30 ml DAILYPRN PRN PO CONSTIPATION 10/02/20 22:55 Meloxicam (Mobic) 15 mg DAILY PO 10/03/20 09:00 10/12/20 09:58 Metformin HCl (Glucophage) 1,000 mg BID@0800,1800 PO 10/03/20 18:00 10/12/20 08:55 Nicotine (Nicoderm Cq 21mg) 1 patch DAILY TD 10/03/20 09:00 10/09/20 08:59 DC Nystatin (Mycostatin Powder, Nystop) to b/l feet x 10 days BID TOP 10/03/20 09:00 10/09/20 09:08 DC Olanzapine (ZyPREXA ZYDIS) 10 mg Q4HP PRN PO AGITATION/ANXIETY 10/02/20 22:55 Paliperidone (Invega) 3 mg QAM PO 10/03/20 09:00 10/03/20 13:02 DC 10/03/20 12:34 Paliperidone (Invega) 3 mg QAM PO 10/05/20 09:00 10/12/20 09:58 Quetiapine Fumarate (SEROquel) 100 mg QHS PO 10/02/20 21:00 10/03/20 13:02 DC 10/02/20 23:39 Quetiapine Fumarate (SEROquel) 100 mg QHS PO 10/04/20 23:05 10/11/20 20:54 Quetiapine Fumarate (SEROquel) 200 mg QHS PO 10/03/20 21:00 10/04/20 23:08 DC Trazodone HCl (Desyrel) 300 mg QHS PO 10/02/20 21:00 10/03/20 13:02 DC 10/02/20 23:38 Trazodone HCl (Desyrel) 300 mg QHS PO 10/04/20 23:05 10/11/20 20:54 Allergies Coded Allergies: haloperidol (Verified Adverse Reaction, Unknown, unknown, 07/27/20) Per brother, there was a reaction in the past the retirement. He was unable to describe the reaction. ARABELLA ARSHAD M.D. October 12, 2020 10:55
[2020-10-12] MEDS: QUEtiapine FUMARATE 100 MG TAB PO SCH (20:46)
[2020-10-12] MEDS: traZODone 100 MG TAB PO SCH (20:47)
[2020-10-13 06:34] VITALS: BP 148/92
[2020-10-13] MEDS: HumaLOG INSULIN (NovoLOG) PER UNIT SC SCH ×4 (06:40→21:00)
[2020-10-13] MEDS: IBUPROFEN PO SCH ×4 (08:00→21:00)
[2020-10-13] MEDS: metFORMIN (GLUCOPHAGE) 1000 MG TABLET PO SCH ×2 (08:31→17:22)
[2020-10-13] MEDS: MELOXICAM (MOBIC) 7.5 MG TAB PO SCH (08:31)
[2020-10-13] MEDS: PALIPERIDONE 3 MG ER TAB (INVEGA) PO SCH (08:31)
[2020-10-13 16:46] VITALS: BP 153/90
[2020-10-13] MEDS: traZODone 100 MG TAB PO SCH (20:59)
[2020-10-13] MEDS: QUEtiapine FUMARATE 100 MG TAB PO SCH (20:59)
[2020-10-14 06:36] VITALS: BP 144/76
[2020-10-14] MEDS: HumaLOG INSULIN (NovoLOG) PER UNIT SC SCH ×4 (07:43→21:00)
[2020-10-14] MEDS: IBUPROFEN PO SCH ×4 (08:00→21:00)
[2020-10-14] MEDS: metFORMIN (GLUCOPHAGE) 1000 MG TABLET PO SCH ×2 (08:06→17:09)
[2020-10-14] MEDS: PALIPERIDONE 3 MG ER TAB (INVEGA) PO SCH (09:09)
[2020-10-14] MEDS: MELOXICAM (MOBIC) 7.5 MG TAB PO SCH (09:09)
[2020-10-14 18:04] VITALS: BP 138/76
[2020-10-14] MEDS: traZODone 100 MG TAB PO SCH (21:44)
[2020-10-14] MEDS: QUEtiapine FUMARATE 100 MG TAB PO SCH (21:45)
[2020-10-15] MEDS: HumaLOG INSULIN (NovoLOG) PER UNIT SC SCH ×4 (06:48→20:57)
[2020-10-15 07:04] VITALS: BP 145/84
[2020-10-15] MEDS: IBUPROFEN PO SCH ×4 (08:00→20:57)
[2020-10-15] MEDS: metFORMIN (GLUCOPHAGE) 1000 MG TABLET PO SCH ×2 (08:54→17:30)
[2020-10-15] MEDS: MELOXICAM (MOBIC) 7.5 MG TAB PO SCH (09:32)
[2020-10-15] MEDS: PALIPERIDONE 3 MG ER TAB (INVEGA) PO SCH (09:32)
--- NOTE | 2020-10-15 11:49 | MHIPNPDOC ---
[facility] Progress Note Progress Note DATE OF SERVICE: 10/15/20 The patient is cooperating with the medicine and is in fair control but remains regressed and withdrawn. He has no support system and has no housing and has no safe plan. He is awaiting for a emergency housing or safe assisted. HISTORY: . VITAL SIGNS: See below. NEW TEST RESULTS: . CURRENT MEDICATIONS: See below. MENTAL STATUS EXAMINATION: Patient is a 55 -year old male, who is [in bed, withdrawn. Speech: Is very limited. Language skills are , poor. Thought processes including: , Relevant, but not productive. Thought content: Superficial. He denies any problem . Abstract reasoning, and computation: For. Description of associations: Poverty of thoughts. Description of abnormal or psychotic thoughts: Denies any command hallucination. Judgment: , Poor. Insight: very poor. Orientation: Appears oriented. Recent and remote memory: Poor . Attention span and concentration: poor. Language: . Fund of knowledge: poor. Mood: A little depressed]. Affect: [, Blunted, preoccupied]. DIAGNOSES: 1. [Schizoaffective disorder]. 2. [Polysubstance abuse]. 3. . ASSESSMENT:[Remained withdrawn and regressed] MANAGEMENT PLAN: [Need a safe discharge plan]. TIME SPENT: 15 minutes. Vital Signs Vital Signs Date Time Temp Pulse Resp B/P (MAP) Pulse Ox O2 Delivery O2 Flow Rate FiO2 10/15/20 09:32 145/84 10/15/20 07:04 98.0 85 20 98 Room Air Laboratory Data 24H Labs Laboratory Tests 2 10/14/20 12:16: Bedside Glucose (Misc Panel) 128H 10/14/20 17:06: Bedside Glucose (Misc Panel) 251H 10/15/20 11:39: Current Medications Current Medications Medications (Trade) Dose Ordered Sig/Preston Route PRN Reason Start Time Stop Time Status Last Admin Dose Admin Acetaminophen (Tylenol Tab) 650 mg Q6HP PRN PO HEADACHE or DISCOMFORT 10/02/20 22:55 10/03/20 13:06 DC Acetaminophen (Tylenol Tab) 1,000 mg TID PO 10/03/20 16:00 10/09/20 09:08 DC Al Hydrox/Mg Hydrox/Simethicone (Mylanta) 30 ml Q4HP PRN PO HEARTBURN/INDIGESTION 10/02/20 22:55 Benzonatate (Tessalon Perles) 100 mg BIDP PRN PO COUGH 10/05/20 01:00 10/09/20 08:52 Cyclobenzaprine HCl (Flexeril) 10 mg TID PRN PO MUSCLE SPASMS 10/02/20 22:55 Dextrose (Dextrose 50%) 25 ml ASDIRECTED PRN IV SEE LABEL COMMENTS 10/03/20 12:50 Diphenhydramine HCl (Benadryl) 50 mg STAT STAT IM 10/02/20 16:22 10/02/20 16:23 DC Emollient Cream (Vanicream) dry skin on b/l le and ue BID TOP 10/03/20 09:00 10/09/20 09:08 DC Emollient Cream (Vanicream) dry skin on b/l le and ue BID PRN TOP DRY SKIN 10/09/20 09:05 10/13/20 08:59 DC Glucagon (Glucagon) 1 mg ASDIRECTED PRN SC SEE LABEL COMMENTS 10/03/20 12:50 Glucose (Glucose) 16 GM ASDIRECTED PRN PO SEE LABEL COMMENTS 10/03/20 12:50 Guaifenesin/ Dextromethorphan (Robitussin Dm) 10 ml Q6HP PRN PO COUGH 10/07/20 08:20 10/09/20 08:52 Ibuprofen (Advil) 200 mg WMHS PO 10/03/20 18:00 10/03/20 18:02 Insulin Human Lispro (HumaLOG INSULIN) SEE PROTOCOL TABLE AC SC 10/03/20 17:30 10/14/20 17:11 Insulin Human Lispro (HumaLOG INSULIN) See Protocol Table QHS SC 10/03/20 21:00 Lisinopril (Prinivil) 20 mg DAILY PO 10/03/20 09:00 10/15/20 09:32 Lorazepam (Ativan) 2 mg STAT STAT IM 10/02/20 16:22 10/02/20 16:23 DC Magnesium Hydroxide (Milk Of Magnesia) 30 ml DAILYPRN PRN PO CONSTIPATION 10/02/20 22:55 Meloxicam (Mobic) 15 mg DAILY PO 10/03/20 09:00 10/15/20 09:32 Metformin HCl (Glucophage) 1,000 mg BID@0800,1800 PO 10/03/20 18:00 10/15/20 08:54 Nicotine (Nicoderm Cq 21mg) 1 patch DAILY TD 10/03/20 09:00 10/09/20 08:59 DC Nystatin (Mycostatin Powder, Nystop) to b/l feet x 10 days BID TOP 10/03/20 09:00 10/09/20 09:08 DC Olanzapine (ZyPREXA ZYDIS) 10 mg Q4HP PRN PO AGITATION/ANXIETY 10/02/20 22:55 Paliperidone (Invega) 3 mg QAM PO 10/03/20 09:00 10/03/20 13:02 DC 10/03/20 12:34 Paliperidone (Invega) 3 mg QAM PO 10/05/20 09:00 10/15/20 09:32 Quetiapine Fumarate (SEROquel) 100 mg QHS PO 10/02/20 21:00 10/03/20 13:02 DC 10/02/20 23:39 Quetiapine Fumarate (SEROquel) 100 mg QHS PO 10/04/20 23:05 10/14/20 21:45 Quetiapine Fumarate (SEROquel) 200 mg QHS PO 10/03/20 21:00 10/04/20 23:08 DC Trazodone HCl (Desyrel) 300 mg QHS PO 10/02/20 21:00 10/03/20 13:02 DC 10/02/20 23:38 Trazodone HCl (Desyrel) 300 mg QHS PO 10/04/20 23:05 10/14/20 21:44 Allergies Coded Allergies: haloperidol (Verified Adverse Reaction, Unknown, unknown, 07/27/20) Per brother, there was a reaction in the past the halfway. He was unable to describe the reaction. ARABELLA ARSHAD M.D. October 15, 2020 11:49
[2020-10-15 18:50] VITALS: BP 138/83
[2020-10-15] MEDS: traZODone 100 MG TAB PO SCH (20:55)
[2020-10-15] MEDS: QUEtiapine FUMARATE 100 MG TAB PO SCH (20:55)
[2020-10-16] MEDS: HumaLOG INSULIN (NovoLOG) PER UNIT SC SCH ×4 (06:48→21:00)
[2020-10-16] MEDS: metFORMIN (GLUCOPHAGE) 1000 MG TABLET PO SCH ×2 (08:59→17:16)
[2020-10-16] MEDS: IBUPROFEN PO SCH ×4 (09:00→21:00)
[2020-10-16] MEDS: PALIPERIDONE 3 MG ER TAB (INVEGA) PO SCH (09:00)
[2020-10-16] MEDS: MELOXICAM (MOBIC) 7.5 MG TAB PO SCH (09:00)
--- NOTE | 2020-10-16 10:50 | MHIPNPDOC ---
[facility] Progress Note Progress Note DATE OF SERVICE: 10/16/20 , No significant change in the patient's behavior or mental status. He reports no new issues. Has no complaint and spent most of his time in bed and not much s ocialization. Sleeping and eating okay and denies any command hallucination and understands that he needs safe house HISTORY: . VITAL SIGNS: See below. NEW TEST RESULTS: . CURRENT MEDICATIONS: See below. MENTAL STATUS EXAMINATION: Patient is a 55-year old male, who is in bed in no acute distress. Speech: Is , not productive. Language skills are minimal. Thought processes including: Relevant answers of yes and no. Thought content: Denies any problem and denies any suicidal thoughts. Abstract reasoning, and computation: For. Description of associations: Relevant, but not productive. Description of abnormal or psychotic thoughts: Denies any hallucination and not expressing any delusional thinking. Judgment: , Poor. Insight: poor. Orientation: , Well-oriented. Recent and remote memory: , Poor. Attention span and concentration: poor]. Language: . Fund of knowledge: , Very little. Mood: Reports feeling okay. Affect: Blunted. DIAGNOSES: 1. . Schizoaffective disorder 2. ., Polysubstance abuse 3. . ASSESSMENT:, No significant change and no acting out behavior and not acutely suicidal MANAGEMENT PLAN: Awaiting safe discharge plan with the housing. TIME SPENT: 15 minutes. Vital Signs Vital Signs Date Time Temp Pulse Resp B/P (MAP) Pulse Ox O2 Delivery O2 Flow Rate FiO2 10/16/20 09:00 146/85 10/15/20 18:50 97.6 82 18 10/15/20 07:04 98 Room Air Laboratory Data 24H Labs Laboratory Tests 2 10/15/20 11:39: Bedside Glucose (Misc Panel) 165H 10/15/20 17:27: Bedside Glucose (Misc Panel) 235H 10/16/20 06:16: Bedside Glucose (Misc Panel) 159H Current Medications Current Medications Medications (Trade) Dose Ordered Sig/Preston Route PRN Reason Start Time Stop Time Status Last Admin Dose Admin Acetaminophen (Tylenol Tab) 650 mg Q6HP PRN PO HEADACHE or DISCOMFORT 10/02/20 22:55 10/03/20 13:06 DC Acetaminophen (Tylenol Tab) 1,000 mg TID PO 10/03/20 16:00 10/09/20 09:08 DC Al Hydrox/Mg Hydrox/Simethicone (Mylanta) 30 ml Q4HP PRN PO HEARTBURN/INDIGESTION 10/02/20 22:55 Benzonatate (Tessalon Perles) 100 mg BIDP PRN PO COUGH 10/05/20 01:00 10/09/20 08:52 Cyclobenzaprine HCl (Flexeril) 10 mg TID PRN PO MUSCLE SPASMS 10/02/20 22:55 Dextrose (Dextrose 50%) 25 ml ASDIRECTED PRN IV SEE LABEL COMMENTS 10/03/20 12:50 Diphenhydramine HCl (Benadryl) 50 mg STAT STAT IM 10/02/20 16:22 10/02/20 16:23 DC Emollient Cream (Vanicream) dry skin on b/l le and ue BID TOP 10/03/20 09:00 10/09/20 09:08 DC Emollient Cream (Vanicream) dry skin on b/l le and ue BID PRN TOP DRY SKIN 10/09/20 09:05 10/13/20 08:59 DC Glucagon (Glucagon) 1 mg ASDIRECTED PRN SC SEE LABEL COMMENTS 10/03/20 12:50 Glucose (Glucose) 16 GM ASDIRECTED PRN PO SEE LABEL COMMENTS 10/03/20 12:50 Guaifenesin/ Dextromethorphan (Robitussin Dm) 10 ml Q6HP PRN PO COUGH 10/07/20 08:20 10/09/20 08:52 Ibuprofen (Advil) 200 mg WMHS PO 10/03/20 18:00 10/16/20 09:00 Insulin Human Lispro (HumaLOG INSULIN) SEE PROTOCOL TABLE AC SC 10/03/20 17:30 10/16/20 06:48 Insulin Human Lispro (HumaLOG INSULIN) See Protocol Table QHS SC 10/03/20 21:00 Lisinopril (Prinivil) 20 mg DAILY PO 10/03/20 09:00 10/16/20 09:00 Lorazepam (Ativan) 2 mg STAT STAT IM 10/02/20 16:22 10/02/20 16:23 DC Magnesium Hydroxide (Milk Of Magnesia) 30 ml DAILYPRN PRN PO CONSTIPATION 10/02/20 22:55 Meloxicam (Mobic) 15 mg DAILY PO 10/03/20 09:00 10/16/20 09:00 Metformin HCl (Glucophage) 1,000 mg BID@0800,1800 PO 10/03/20 18:00 10/16/20 08:59 Nicotine (Nicoderm Cq 21mg) 1 patch DAILY TD 10/03/20 09:00 10/09/20 08:59 DC Nystatin (Mycostatin Powder, Nystop) to b/l feet x 10 days BID TOP 10/03/20 09:00 10/09/20 09:08 DC Olanzapine (ZyPREXA ZYDIS) 10 mg Q4HP PRN PO AGITATION/ANXIETY 10/02/20 22:55 Paliperidone (Invega) 3 mg QAM PO 10/03/20 09:00 10/03/20 13:02 DC 10/03/20 12:34 Paliperidone (Invega) 3 mg QAM PO 10/05/20 09:00 10/16/20 09:00 Quetiapine Fumarate (SEROquel) 100 mg QHS PO 10/02/20 21:00 10/03/20 13:02 DC 10/02/20 23:39 Quetiapine Fumarate (SEROquel) 100 mg QHS PO 10/04/20 23:05 10/15/20 20:55 Quetiapine Fumarate (SEROquel) 200 mg QHS PO 10/03/20 21:00 10/04/20 23:08 DC Trazodone HCl (Desyrel) 300 mg QHS PO 10/02/20 21:00 10/03/20 13:02 DC 10/02/20 23:38 Trazodone HCl (Desyrel) 300 mg QHS PO 10/04/20 23:05 10/15/20 20:55 Allergies Coded Allergies: haloperidol (Verified Adverse Reaction, Unknown, unknown, 07/27/20) Per brother, there was a reaction in the past the snf. He was unable to describe the reaction. ARABELLA ARSHAD M.D. October 16, 2020 10:49
[2020-10-16 16:08] VITALS: BP 142/91
[2020-10-16] MEDS: traZODone 100 MG TAB PO SCH (20:28)
[2020-10-16] MEDS: QUEtiapine FUMARATE 100 MG TAB PO SCH (20:28)
[2020-10-17] MEDS: HumaLOG INSULIN (NovoLOG) PER UNIT SC SCH ×4 (06:44→20:56)
[2020-10-17 06:54] VITALS: BP 157/97
[2020-10-17] MEDS: metFORMIN (GLUCOPHAGE) 1000 MG TABLET PO SCH ×2 (07:49→17:01)
[2020-10-17] MEDS: IBUPROFEN PO SCH ×4 (07:52→20:56)
[2020-10-17] MEDS: PALIPERIDONE 3 MG ER TAB (INVEGA) PO SCH (09:10)
[2020-10-17] MEDS: MELOXICAM (MOBIC) 7.5 MG TAB PO SCH (09:11)
--- NOTE | 2020-10-17 10:50 | MHIPNPDOC ---
[facility] Progress Note Progress Note DATE OF SERVICE: 10/17/20 The patient is out of his bed and is asking for the M.D. to speak with. The patient states that he is feeling tired of being locked up and would like to be out and be able to smoke and claims that he has a place in [place] where he can stay and is asking for discharge. He is polite, pleasant and in good control and is irrational. He is denying any hallucination. He is denying any paranoia and his denying any suicidal thoughts and appears to be fairly organized and not in any acute distress. HISTORY: . VITAL SIGNS: See below. NEW TEST RESULTS: . CURRENT MEDICATIONS: See below. MENTAL STATUS EXAMINATION: Patient is a 55-year old male, who is in no acute distress. Speech: Is more productive. Language skills are good. Thought processes including: Relevant. Thought content: Denies any suicidal thoughts . Abstract reasoning, and computation: , Fair. Description of associations: , Better organized. Denies any hallucination or paranoia]. Description of abnormal or psychotic thoughts: [Denies any hallucination or paranoid]. Judgment: [Fair]. Insight: fair. ]. Orientation: Well oriented . Recent and remote memory: [, Fair]. Attention span and concentration: [, Fair]. Language: . Fund of knowledge: [Below average]. Mood: [Euthymic]. Affect: More animated. DIAGNOSES: 1. . Schizoaffective disorder 2. ., Polysubstance abuse 3. . ASSESSMENT: Showing definitely improved affect and the behavior is stable MANAGEMENT PLAN: [. Continue current medicine and would ask the materials planner to confirm the house]. TIME SPENT: 20] minutes. Vital Signs Vital Signs Date Time Temp Pulse Resp B/P (MAP) Pulse Ox O2 Delivery O2 Flow Rate FiO2 10/17/20 09:10 140/89 10/17/20 06:54 98.9 75 18 98 Room Air Laboratory Data 24H Labs Laboratory Tests 2 10/16/20 11:55: Bedside Glucose (Misc Panel) 151H 10/16/20 16:54: Bedside Glucose (Misc Panel) 219H Current Medications Current Medications Medications (Trade) Dose Ordered Sig/Preston Route PRN Reason Start Time Stop Time Status Last Admin Dose Admin Acetaminophen (Tylenol Tab) 650 mg Q6HP PRN PO HEADACHE or DISCOMFORT 10/02/20 22:55 10/03/20 13:06 DC Acetaminophen (Tylenol Tab) 1,000 mg TID PO 10/03/20 16:00 10/09/20 09:08 DC Al Hydrox/Mg Hydrox/Simethicone (Mylanta) 30 ml Q4HP PRN PO HEARTBURN/INDIGESTION 10/02/20 22:55 Benzonatate (Tessalon Perles) 100 mg BIDP PRN PO COUGH 10/05/20 01:00 10/09/20 08:52 Cyclobenzaprine HCl (Flexeril) 10 mg TID PRN PO MUSCLE SPASMS 10/02/20 22:55 Dextrose (Dextrose 50%) 25 ml ASDIRECTED PRN IV SEE LABEL COMMENTS 10/03/20 12:50 Diphenhydramine HCl (Benadryl) 50 mg STAT STAT IM 10/02/20 16:22 10/02/20 16:23 DC Emollient Cream (Vanicream) dry skin on b/l le and ue BID TOP 10/03/20 09:00 10/09/20 09:08 DC Emollient Cream (Vanicream) dry skin on b/l le and ue BID PRN TOP DRY SKIN 10/09/20 09:05 10/13/20 08:59 DC Glucagon (Glucagon) 1 mg ASDIRECTED PRN SC SEE LABEL COMMENTS 10/03/20 12:50 Glucose (Glucose) 16 GM ASDIRECTED PRN PO SEE LABEL COMMENTS 10/03/20 12:50 Guaifenesin/ Dextromethorphan (Robitussin Dm) 10 ml Q6HP PRN PO COUGH 10/07/20 08:20 10/09/20 08:52 Ibuprofen (Advil) 200 mg WMHS PO 10/03/20 18:00 10/16/20 09:00 Insulin Human Lispro (HumaLOG INSULIN) SEE PROTOCOL TABLE AC SC 10/03/20 17:30 10/16/20 16:57 Insulin Human Lispro (HumaLOG INSULIN) See Protocol Table QHS SC 10/03/20 21:00 Lisinopril (Prinivil) 20 mg DAILY PO 10/03/20 09:00 10/17/20 09:10 Lorazepam (Ativan) 2 mg STAT STAT IM 10/02/20 16:22 10/02/20 16:23 DC Magnesium Hydroxide (Milk Of Magnesia) 30 ml DAILYPRN PRN PO CONSTIPATION 10/02/20 22:55 Meloxicam (Mobic) 15 mg DAILY PO 10/03/20 09:00 10/17/20 09:11 Metformin HCl (Glucophage) 1,000 mg BID@0800,1800 PO 10/03/20 18:00 10/17/20 07:49 Nicotine (Nicoderm Cq 21mg) 1 patch DAILY TD 10/03/20 09:00 10/09/20 08:59 DC Nystatin (Mycostatin Powder, Nystop) to b/l feet x 10 days BID TOP 10/03/20 09:00 10/09/20 09:08 DC Olanzapine (ZyPREXA ZYDIS) 10 mg Q4HP PRN PO AGITATION/ANXIETY 10/02/20 22:55 Paliperidone (Invega) 3 mg QAM PO 10/03/20 09:00 10/03/20 13:02 DC 10/03/20 12:34 Paliperidone (Invega) 3 mg QAM PO 10/05/20 09:00 10/17/20 09:10 Quetiapine Fumarate (SEROquel) 100 mg QHS PO 10/02/20 21:00 10/03/20 13:02 DC 10/02/20 23:39 Quetiapine Fumarate (SEROquel) 100 mg QHS PO 10/04/20 23:05 10/16/20 20:28 Quetiapine Fumarate (SEROquel) 200 mg QHS PO 10/03/20 21:00 10/04/20 23:08 DC Trazodone HCl (Desyrel) 300 mg QHS PO 10/02/20 21:00 10/03/20 13:02 DC 10/02/20 23:38 Trazodone HCl (Desyrel) 300 mg QHS PO 10/04/20 23:05 10/16/20 20:28 Allergies Coded Allergies: haloperidol (Verified Adverse Reaction, Unknown, unknown, 07/27/20) Per brother, there was a reaction in the past the skilled nursing. He was unable to describe the reaction. ARABELLA ARSHAD M.D. October 17, 2020 10:49
[2020-10-17] MEDS: traZODone 100 MG TAB PO SCH (20:53)
[2020-10-17] MEDS: QUEtiapine FUMARATE 100 MG TAB PO SCH (20:53)
[2020-10-18] MEDS: HumaLOG INSULIN (NovoLOG) PER UNIT SC SCH ×2 (06:37→11:56)
[2020-10-18] MEDS: IBUPROFEN PO SCH ×2 (08:00→11:56)
[2020-10-18] MEDS: metFORMIN (GLUCOPHAGE) 1000 MG TABLET PO SCH (08:39)
[2020-10-18] MEDS: MELOXICAM (MOBIC) 7.5 MG TAB PO SCH (09:20)
[2020-10-18] MEDS: PALIPERIDONE 3 MG ER TAB (INVEGA) PO SCH (09:21)
[2020-10-18 09:22] VITALS: BP 140/89
[2020-10-18] MEDS ORDERED: MELO7.5T35 PO (10:03)
[2020-10-18] MEDS ORDERED: PALI1TAB2 PO (10:03)
[2020-10-18] MEDS ORDERED: TRAZ-257 PO (10:03)
[2020-10-18] MEDS ORDERED: QUET100T2 PO (10:03)
[2020-10-18] MEDS ORDERED: LISI20TA33 PO (10:03)
[2020-10-18] MEDS ORDERED: GLUC1000 PO (10:03)
--- NOTE | 2020-10-18 10:20 | MHDSPDOC ---
[facility] Discharge Summary Discharge Summary DATE OF ADMISSION: October 02, 2020 at 20:41 DATE OF DISCHARGE: 10/17/2020 DISCHARGE DIAGNOSES: 1. . Schizoaffective disorder 2. ., Polysubstance abuse REASON FOR ADMISSION: This 55-year-old man was admitted due to agitate bizarre and threatening behavior. He has extensive history of a schizoaffective di sorder, unknown. Polysubstance abuse. Reportedly been compliant with his outpatient medications, but has been actively using and tested positive for amphetamine and cannabis at the emergency room. On admission, he was extremely disheveled, withdrawn, preoccupied, and minimally cooperative. CONSULTANTS INVOLVED: None TREATMENT AND PROGRESS ON THE UNIT : Patient was complying with his Invega long- acting injection as not to follow his next injection on October 25. He wasn't restarted on paliperidone 3 mg in the morning, continued with the Seroquel and a milligram at bedtime and trazodone 300 mg at bedtime. He was also continued on his medical medicine of lisinopril 20 mg daily and metformin 1000 milligram twice a day. He has cooperated with all the medicine didn't have any new complaints and was in no acute physical distress. Throughout the stay.. HOSPITAL COURSE: The patient was seen for daily supportive therapy and continued with his home medication. He was initially extremely withdrawn, spending most of his time in bed, minimally socializing and appears very regressed. He is, however, not showing any agitated or threatening behavior and reported gradual decrease in auditory hallucinations and is not expressing any paranoid thoughts. He denied any serious depression and denied any suicidal thoughts and his behavior was in good control. After the first 10 days. He is becoming more spontaneous and cooperative and started to talk about his discharge plan. It was felt that he would need some type of supportive housing because of his repeated decompensation and continued substance abuse issues. He is refusing to go to any inpatient drug rehabilitation center and most of the supportive living, has refused his referral. Patient finally located a friend in [place] who is willing to let him stay in his place until he can find more suitable housing. Patient is requesting discharge to his friend, but is willing to continue outpatient treatment. He is much more pleasant and animated and verbally productive and denies any acute psychotic symptoms, denies any lethality issues and appears stable at his baseline mental status. DISCHARGE ASSESSMENT: Improved, stable and not a danger to himself or other people. MENTAL STATUS EXAMINATION ON DISCHARGE: Patient is a 55-year old male, who is in no acute distress. Speech is rational, relevant. Language skills are fair. Thought processes including: More productive and organized. Thought content: No gross delusional ideas and no suicidal thoughts. Abstract reasoning, and computation: , Poor. Description of associations: Rational and relevant. Description of abnormal or psychotic thoughts: No acute psychotic symptoms. Judgmentfair: Fair. Insight: fair. Orientation to , well oriented. Recent and remote memory: fair]. Attention span and concentration: poor. Language: . Fund of knowledge: Below average. Mood: Euthymic. Affect: , Appropriate, animated. MEDICATIONS ON DISCHARGE: - for . Or over his psychotropic medicine and hypertension and diabetes medicine prescribed 7 days with 3 refills - for . - for . PLAN/FOLLOWUP ARRANGEMENTS: As arranged by the logistics planner. The amount of time spent in the coordination of care for this patient was approximately 45 minutes. ETOH/Disorder Med Rx ETOH/DRUG DISORDER RX: N/A Vital Signs/I&Os Vital Signs Date Time Temp Pulse Resp B/P (MAP) Pulse Ox O2 Delivery O2 Flow Rate FiO2 10/18/20 09:22 140/89 10/17/20 06:54 98.9 75 18 98 Room Air Laboratory Data Labs 24H Laboratory Tests 2 10/17/20 11:48: Bedside Glucose (Misc Panel) 145H 10/17/20 16:54: Bedside Glucose (Misc Panel) 195H Medications Scheduled Lisinopril (Lisinopril) 20 Mg Tablet, 20 MG PO DAILY for htn for 7 Days, #7 Meloxicam (Meloxicam) 7.5 Mg Tablet, 15 MG PO DAILY for arthritis for 7 Days, #7 Metformin HCl (Glucophage) 1,000 Mg Tablet, 1,000 MG PO BID@0800,1800 for niddm for 7 Days, #14 Paliperidone (Paliperidone ER) 3 Mg Tab.er.24, 3 MG PO QAM for psychosis for 7 Days, #7 Paliperidone Palmitate (Invega Sustenna) 234 Mg/1.5 Ml Syringe, 234 MG IM QMONTH for psychosis, #1 Quetiapine Fumarate (Quetiapine Fumarate) 100 Mg Tablet, 100 MG PO QHS for psychosis for 7 Days, #7 Trazodone HCl (Trazodone HCl) 100 Mg Tablet, 300 MG PO QHS for sleep for 7 Days, #7 Allergies Coded Allergies: haloperidol (Verified Adverse Reaction, Unknown, unknown, 07/27/20) Per brother, there was a reaction in the past the snf. He was unable to describe the reaction. ARABELLA ARSHAD M.D. October 18, 2020 10:20
== END 2020-10-18 14:40 | disposition home or self-care (01) | DRG 750 ==
LOC: M ED 11:24 → M ED INP 20:41 → M PSY 23:22
PROVIDERS: ADMIT Psychiatry & Neurology Psychiatry; ATTEND Psychiatry & Neurology Psychiatry
DX: F25.8 Other schizoaffective disorders (principal); R45.851 Suicidal ideations; E11.9 Type 2 diabetes mellitus without complications; F15.10 Other stimulant abuse, uncomplicated; I10 Essential (primary) hypertension; B35.3 Tinea pedis; Z91.19 Patient's noncompliance with other medical treatment and regimen; F12.10 Cannabis abuse, uncomplicated; Z79.899 Other long term (current) drug therapy; Z88.8 Allergy status to other drugs, medicaments and biological substances; F10.10 Alcohol abuse, uncomplicated; J44.9 Chronic obstructive pulmonary disease, unspecified; F17.200 Nicotine dependence, unspecified, uncomplicated; Z89.421 Acquired absence of other right toe(s)

== ENCOUNTER 2020-10-22 11:09 | Emergency (ER) | payer MEDICAID, OTHER ==
[~2020-10-22] VITALS: Ht 188 cm; Wt 118.2 kg
[~2020-10-22 11:09] MED LIST changes: +GLUC1000 PO
[2020-10-22 11:15] VITALS: BP 139/80
[2020-10-22] MEDS ORDERED: AMOX875T2 (11:18)
[2020-10-22] MEDS ORDERED: CEPH500C PO (11:39)
[2020-10-22] MEDS ORDERED: POLYSOL OD (11:39)
== END 2020-10-22 11:50 | disposition home or self-care (01) ==
LOC: EDBD 11:09 → M ED 11:09
DX: H01.002 Unspecified blepharitis right lower eyelid (principal); H10.31 Unspecified acute conjunctivitis, right eye; Z88.8 Allergy status to other drugs, medicaments and biological substances

== ENCOUNTER 2020-10-24 09:20 | Emergency (ER) | payer OTHER ==
[~2020-10-24] VITALS: Ht 188 cm; Wt 122.7 kg
[~2020-10-24 09:20] MED LIST changes: +AMOX875T2; +CEPH500C PO; +POLYSOL OD
[2020-10-24] MEDS ORDERED: CEPHALEXIN 500 MG CAP PO ONE (11:30)
[2020-10-24] MEDS ORDERED: POLYTRIM OPTH DROPS 10ML OD ONE (11:30)
[2020-10-24 12:02] VITALS: BP 166/98
== END 2020-10-24 12:06 | disposition home or self-care (01) ==
LOC: M ED 09:20
DX: H01.002 Unspecified blepharitis right lower eyelid (principal); H10.31 Unspecified acute conjunctivitis, right eye; Z88.8 Allergy status to other drugs, medicaments and biological substances; Z79.84 Long term (current) use of oral hypoglycemic drugs; Z79.899 Other long term (current) drug therapy

== ENCOUNTER 2020-10-28 06:12 | Emergency (ER) | payer OTHER ==
[~2020-10-28] VITALS: Ht 188 cm; Wt 123.0 kg
[2020-10-28 07:02] LABS: HEMATOCRIT 36.1 % (42.0-52.0); MEAN CORPUSCULAR HGB CONC 33.2 g/dl (32.0-36.5); MEAN CORPUSCULAR VOLUME 81.3 fl (80.0-96.0); PLATELET COUNT, AUTOMATED 292 10^3/uL (150-450); RED BLOOD COUNT 4.44 10^6/uL (4.30-6.10); WHITE BLOOD COUNT 6.7 10^3/uL (4.0-10.0)
[2020-10-28 07:34] LABS: ACETAMINOPHEN LEVEL < 2.0 UG/ML (10.0-30.0); ALT/SGPT 15 U/L (12-78); BILIRUBIN,DIRECT 0.1 MG/DL (0.0-0.2); BILIRUBIN,TOTAL 0.3 MG/DL (0.2-1.0); BLOOD UREA NITROGEN 11 MG/DL (7-18); CALCIUM LEVEL 8.5 MG/DL (8.5-10.1); CARBON DIOXIDE LEVEL 25 MEQ/L (21-32); CHLORIDE LEVEL 102 MEQ/L (98-107); CREATININE FOR GFR 1.18 MG/DL (0.70-1.30); ETHYL ALCOHOL (ETHANOL) < 0.003 % (0.000-0.010); GLOMERULAR FILTRATION RATE > 60.0 (>56); GLUCOSE, FASTING 280 MG/DL (70-100); POTASSIUM SERUM 3.4 MEQ/L (3.5-5.1); SALICYLATE LEVEL < 1.7 MG/DL (5.0-30.0); SODIUM LEVEL 137 MEQ/L (136-145); TOTAL PROTEIN 6.7 GM/DL (6.4-8.2)
[2020-10-28 08:38] LABS: AMPHETAMINES LEVEL URINE NEGATIVE (NEGATIVE); BARBITURATES URINE NEGATIVE (NEGATIVE); BENZODIAZEPINES URINE NEGATIVE (NEGATIVE); CANNABINOIDS URINE POSITIVE (NEGATIVE); COCAINE METABOLITE URINE NEGATIVE (NEGATIVE); METHADONE URINE NEGATIVE (NEGATIVE); OPIATES URINE NEGATIVE (NEGATIVE); PHENCYCLIDINE URINE NEGATIVE (NEGATIVE)
[2020-10-28] MEDS: POLYTRIM OPTH DROPS 10ML OD SCH ×4 (09:00→22:16)
[2020-10-28] MEDS: metFORMIN (GLUCOPHAGE) 1000 MG TABLET PO SCH ×2 (09:27→22:16)
[2020-10-28] MEDS ORDERED: LISI20TA33 PO (19:53)
[2020-10-28] MEDS ORDERED: INVE234I IM (19:53)
[2020-10-28] MEDS ORDERED: METF10004 PO (19:53)
[2020-10-28] MEDS ORDERED: QUET100T2 PO (19:53)
[2020-10-28] MEDS ORDERED: TRAZ-257 PO (19:53)
[2020-10-28] MEDS ORDERED: PALI1TAB2 PO (19:54)
[2020-10-28] MEDS ORDERED: MELO15TA28 PO (19:54)
[2020-10-28] MEDS ORDERED: traZODone 100 MG TAB PO ONE (22:30)
[2020-10-28] MEDS ORDERED: QUEtiapine FUMARATE 100 MG TAB PO ONE (22:30)
[2020-10-29] MEDS: POLYTRIM OPTH DROPS 10ML OD SCH ×4 (09:51→21:00)
[2020-10-29] MEDS: metFORMIN (GLUCOPHAGE) 1000 MG TABLET PO SCH ×2 (09:51→21:59)
[2020-10-29] MEDS ORDERED: ALOG1TAB2 PO (14:33)
[2020-10-29] MEDS ORDERED: GLIP10TA18 PO (14:33)
[2020-10-29 16:15] LABS: RSV AMPLIFICATION NEGATIVE (NEGATIVE)
[2020-10-29] MEDS ORDERED: QUEtiapine FUMARATE 100 MG TAB PO SCH (21:00)
[2020-10-29] MEDS ORDERED: traZODone 100 MG TAB PO SCH (21:00)
--- NOTE | 2020-10-30 05:12 | ECGEPIP ---
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
[2020-10-30] MEDS: POLYTRIM OPTH DROPS 10ML OD SCH ×2 (10:16→14:40)
[2020-10-30] MEDS: metFORMIN (GLUCOPHAGE) 1000 MG TABLET PO SCH (10:16)
[2020-10-30 10:17] VITALS: BP 141/78
[2020-10-30 16:10] VITALS: BP 142/62
== END 2020-10-30 16:10 | disposition home or self-care (01) ==
LOC: M ED 06:12 → CANBEDREQ 10-29 17:17 → M ED 10-30 16:10
DX: F20.9 Schizophrenia, unspecified (principal); E11.9 Type 2 diabetes mellitus without complications; G47.33 Obstructive sleep apnea (adult) (pediatric); J44.9 Chronic obstructive pulmonary disease, unspecified; F17.200 Nicotine dependence, unspecified, uncomplicated; F16.10 Hallucinogen abuse, uncomplicated

== ENCOUNTER 2020-11-05 05:57 | Emergency (ER) | payer OTHER ==
[~2020-11-05] VITALS: Ht 185.4 cm; Wt 122.7 kg
[~2020-11-05 05:57] MED LIST changes: +ALOG1TAB2 PO; +METF10004 PO
[2020-11-05 06:54] LABS: HEMATOCRIT 39.1 % (42.0-52.0); MEAN CORPUSCULAR HEMOGLOBIN 27.1 pg (27.0-33.0); MEAN CORPUSCULAR HGB CONC 33.2 g/dl (32.0-36.5); MEAN CORPUSCULAR VOLUME 81.6 fl (80.0-96.0); PLATELET COUNT, AUTOMATED 271 10^3/uL (150-450); RED BLOOD COUNT 4.79 10^6/uL (4.30-6.10)
[2020-11-05 07:17] VITALS: BP 179/110
[2020-11-05 07:26] LABS: ACETAMINOPHEN LEVEL < 2.0 UG/ML (10.0-30.0); ALBUMIN 3.1 GM/DL (3.2-5.2); ALT/SGPT 14 U/L (12-78); BILIRUBIN,DIRECT 0.2 MG/DL (0.0-0.2); BILIRUBIN,TOTAL 0.5 MG/DL (0.2-1.0); BLOOD UREA NITROGEN 10 MG/DL (7-18); CALCIUM LEVEL 8.2 MG/DL (8.5-10.1); CARBON DIOXIDE LEVEL 28 MEQ/L (21-32); CHLORIDE LEVEL 104 MEQ/L (98-107); CREATININE FOR GFR 1.04 MG/DL (0.70-1.30); ETHYL ALCOHOL (ETHANOL) < 0.003 % (0.000-0.010); GLOMERULAR FILTRATION RATE > 60.0 (>56); GLUCOSE, FASTING 167 MG/DL (70-100); POTASSIUM SERUM 3.6 MEQ/L (3.5-5.1); SALICYLATE LEVEL < 1.7 MG/DL (5.0-30.0); SODIUM LEVEL 138 MEQ/L (136-145); TOTAL PROTEIN 6.9 GM/DL (6.4-8.2)
[2020-11-05] MEDS ORDERED: OLANZapine ORAL DISINTEGRATING TAB 5MG PO ONE (07:30)
[2020-11-05 07:55] VITALS: BP 179/110
[2020-11-05 11:30] LABS: AMPHETAMINES LEVEL URINE NEGATIVE (NEGATIVE); BARBITURATES URINE NEGATIVE (NEGATIVE); BENZODIAZEPINES URINE NEGATIVE (NEGATIVE); CANNABINOIDS URINE POSITIVE (NEGATIVE); COCAINE METABOLITE URINE NEGATIVE (NEGATIVE); METHADONE URINE NEGATIVE (NEGATIVE); OPIATES URINE NEGATIVE (NEGATIVE); PHENCYCLIDINE URINE NEGATIVE (NEGATIVE)
== END 2020-11-05 12:33 | disposition home or self-care (01) ==
LOC: M ED 05:57
DX: R41.89 Other symptoms and signs involving cognitive functions and awareness (principal); R45.851 Suicidal ideations; R44.0 Auditory hallucinations; F19.10 Other psychoactive substance abuse, uncomplicated; E11.9 Type 2 diabetes mellitus without complications; F33.9 Major depressive disorder, recurrent, unspecified; F20.9 Schizophrenia, unspecified; J44.9 Chronic obstructive pulmonary disease, unspecified; G47.33 Obstructive sleep apnea (adult) (pediatric); K21.9 Gastro-esophageal reflux disease without esophagitis; Z88.8 Allergy status to other drugs, medicaments and biological substances; Z79.899 Other long term (current) drug therapy; F17.200 Nicotine dependence, unspecified, uncomplicated

== ENCOUNTER 2020-11-07 08:43 | Emergency (ER) | payer OTHER ==
[~2020-11-07] VITALS: Ht 188 cm; Wt 120.5 kg
[~2020-11-07 08:43] MED LIST changes: -DOXY100C37 PO; +DOXY1CAP62 PO
[2020-11-07] MEDS ORDERED: CEPH500C PO (10:00)
[2020-11-07] MEDS ORDERED: BACI500O21 TOP (10:00)
[2020-11-07 10:39] VITALS: BP 165/106
== END 2020-11-07 10:41 | disposition home or self-care (01) ==
LOC: EDBD 08:43 → M ED 08:43
DX: T81.31XA Disruption of external operation (surgical) wound, not elsewhere classified, initial encounter (principal); Z88.8 Allergy status to other drugs, medicaments and biological substances; Z79.899 Other long term (current) drug therapy

== ENCOUNTER 2020-11-13 05:52 | Emergency (ER) | payer OTHER ==
[~2020-11-13] VITALS: Ht 188 cm; Wt 124.1 kg
[~2020-11-13 05:52] MED LIST changes: +BACI500O21 TOP
[2020-11-13] MEDS ORDERED: GLIP10TA18 (06:07)
[2020-11-13 08:00] VITALS: BP 145/80
== END 2020-11-13 08:03 | disposition home or self-care (01) ==
LOC: M ED 05:52
DX: G54.6 Phantom limb syndrome with pain (principal); J44.9 Chronic obstructive pulmonary disease, unspecified; Z89.411 Acquired absence of right great toe

== ENCOUNTER 2020-11-14 06:06 | Emergency (ER) | payer OTHER ==
[~2020-11-14] VITALS: Ht 188 cm; Wt 123.6 kg
[~2020-11-14 06:06] MED LIST changes: +GLIP10TA18
[2020-11-14] MEDS ORDERED: ACETAMINOPHEN 500 MG TAB PO ONE (07:15)
[2020-11-14 10:00] VITALS: BP 167/89
== END 2020-11-14 10:04 | disposition home or self-care (01) ==
LOC: M ED 06:06
DX: R10.9 Unspecified abdominal pain (principal); F20.9 Schizophrenia, unspecified; F17.200 Nicotine dependence, unspecified, uncomplicated; G47.33 Obstructive sleep apnea (adult) (pediatric); Z88.8 Allergy status to other drugs, medicaments and biological substances

== ENCOUNTER 2020-11-15 10:41 | Emergency (ER) | payer OTHER ==
[~2020-11-15] VITALS: Ht 188 cm; Wt 124.1 kg
[2020-11-15] MEDS ORDERED: ACETAMINOPHEN TAB 650MG DOSE (2X325MG) PO ONE (12:10)
[2020-11-15 13:21] LABS: CK-MB VALUE MASS < 1.0 NG/ML (<3.6); CPK CREATINE PHOSPHOKINASE 152 U/L (39-308); MB/CK RELATIVE INDEX 0.66 (< OR =4); TROPONIN I < 0.02 NG/ML (< 0.10)
[2020-11-15 14:36] VITALS: BP 167/93
--- NOTE | 2020-11-15 20:54 | ECGEPIP ---
[facility] - ED Test Date: 2020-11-15 Pat Name: BRIGID FLORES Department: Room: - Gender: Male Jacker: : 1965 Requested By: Reji Cooley Order Number: [id number] Reading MD: Reji Simons Measurements Intervals [place] Rate: 87 P: 46 MA: 170 QRS: -3 QRSD: 84 T: -17 QT: 376 QTc: 452 Interpretive Statements Normal sinus rhythm POOR R WAVE PROGRESSION Nonspecific T wave abnormality SIMILAR TO 10/28/20 Electronically Signed on 11-15-2020 20:54:12 EDT by Reji Simons
== END 2020-11-15 14:37 | disposition home or self-care (01) ==
LOC: EDBD 10:41 → M ED 10:41
DX: R07.9 Chest pain, unspecified (principal); E11.9 Type 2 diabetes mellitus without complications; I10 Essential (primary) hypertension; J44.9 Chronic obstructive pulmonary disease, unspecified; F19.10 Other psychoactive substance abuse, uncomplicated; Z88.8 Allergy status to other drugs, medicaments and biological substances

== ENCOUNTER 2020-11-19 08:45 | Emergency (ER) | payer OTHER ==
[~2020-11-19] VITALS: Ht 188 cm; Wt 124.1 kg
[2020-11-19] MEDS ORDERED: ACETAMINOPHEN 325 MG TAB PO ONE (09:05)
--- NOTE | 2020-11-19 09:50 | REP ---
INDICATION: trauma. COMPARISON: Comparison radiographs of the right foot are from September 02, 2020.. TECHNIQUE: Four views of the right great toe. FINDINGS: Four views of the right great toe demonstrate that the patient is post amputation of the right great toe across the distal end of the proximal phalanx. There is overlying soft tissue swelling. No acute erosive changes seen. No fracture is observed. There is some opaque debris in the region of the 2nd digit toenail. No other evidence of opaque foreign body is seen.. . . IMPRESSION: Status post amputation right great toe across the distal end of the proximal phalanx. Overlying soft tissue swelling. No fracture or other acute abnormality.. <Electronically signed by Gomez Garcia > 11/19/20 0924
[2020-11-19 10:25] VITALS: BP 158/80
== END 2020-11-19 10:35 | disposition home or self-care (01) ==
LOC: EDBD 08:45 → M ED 08:45
DX: T87.89 Other complications of amputation stump (principal); Z89.411 Acquired absence of right great toe; W22.8XXA Striking against or struck by other objects, initial encounter; Y92.009 Unspecified place in unspecified non-institutional (private) residence as the place of occurrence of the external cause; Y93.9 Activity, unspecified; Y99.9 Unspecified external cause status; J44.9 Chronic obstructive pulmonary disease, unspecified; F17.200 Nicotine dependence, unspecified, uncomplicated; F19.10 Other psychoactive substance abuse, uncomplicated; F10.10 Alcohol abuse, uncomplicated; Z88.8 Allergy status to other drugs, medicaments and biological substances

== ENCOUNTER 2020-12-01 15:07 | Inpatient (IN) | payer OTHER ==
[~2020-12-01] VITALS: Ht 188 cm; Wt 120.2 kg
[~2020-12-01 15:07] MED LIST changes: -GLIP10TA18
[2020-12-01 19:29] LABS: BASO % 0.3 % (0.0-1.0); EOS # 0.2 10^3/uL (0.0-0.5); EOS % 1.3 % (0.0-3.0); HEMATOCRIT 44.3 % (42.0-52.0); HEMOGLOBIN 14.4 g/dl (13.5-17.5); LYMPH # 3.2 10^3/uL (1.5-5.0); LYMPH % 27.3 % (24.0-44.0); MEAN CORPUSCULAR HEMOGLOBIN 26.8 pg (27.0-33.0); MEAN CORPUSCULAR HGB CONC 32.5 g/dl (32.0-36.5); MEAN CORPUSCULAR VOLUME 82.5 fl (80.0-96.0); MONO % 8.7 % (2.0-8.0); NEUTROPHILS # 7.2 10^3/uL (1.5-8.5); NEUTROPHILS % 61.9 % (36.0-66.0); PLATELET COUNT, AUTOMATED 257 10^3/uL (150-450); RED BLOOD COUNT 5.37 10^6/uL (4.30-6.10); WHITE BLOOD COUNT 11.6 10^3/uL (4.0-10.0)
[2020-12-01 19:46] LABS: ERYTHROCYTE SEDIMENTATION RATE 24 mm/hr (0-20)
--- NOTE | 2020-12-01 19:53 | REP ---
INDICATION: swelling, erythema, r/o osteomyelitis COMPARISON: None. TECHNIQUE: AP, lateral, bilateral oblique views right foot. FINDINGS: Prior partial amputation through the mid shaft of the 1st proximal phalanx. Postsurgical changes appear relatively normal/stable when compared to prior exam. Remainder of the visualized osseous structures are relatively intact and normal. Lateral view demonstrates soft tissue swelling without subcutaneous emphysema. Incidental moderate calcaneal heel spur noted. IMPRESSION: Soft tissue swelling. No acute osseous abnormalities to suggest osteomyelitis by radiographic evaluation. <Electronically signed by Natalio Stern > 12/01/201948
[2020-12-01] MEDS ORDERED: HumaLOG INSULIN (NovoLOG) PER UNIT SC SCH (21:00)
[2020-12-01] MEDS ORDERED: MORPHINE 2 MG/ML 1ML VIAL (J2270) IV PRN ×2 (21:20→23:20)
[2020-12-01] MEDS ORDERED: GLUCOSE 4GM CHEW TABLET PO PRN (21:20)
[2020-12-01] MEDS ORDERED: MAALOX 30 ML SUSP *UDC PO PRN (21:20)
[2020-12-01] MEDS ORDERED: KETOROLAC 30 MG/ML 1ML VIAL IV PRN (21:20)
[2020-12-01] MEDS ORDERED: DEXTROSE 50% 50 ML SYRINGE IV PRN (21:20)
[2020-12-01] MEDS ORDERED: GLUCAGON INJ 1MG VIAL SC PRN (21:20)
[2020-12-01] MEDS ORDERED: MOM 30ML SUSPENSION UDC PO PRN (21:20)
[2020-12-01] MEDS ORDERED: ACETAMINOPHEN TAB 650MG DOSE (2X325MG) PO PRN (21:20)
[2020-12-01] MEDS ORDERED: TRAZ1TAB14 PO (21:34)
[2020-12-01] MEDS ORDERED: QUET300T2 PO (21:34)
--- NOTE | 2020-12-01 21:40 | REPVR ---
PROCEDURE INFORMATION: Exam: US Duplex Right Lower Extremity Veins, Limited Exam date and time: 12/01/2020 9:04 PM Age: 55 years old Clinical indication: Pain; Leg, lower; Right; Additional info: Ankle swelling, pain calf TECHNIQUE: Imaging protocol: Real-time Duplex ultrasound of the Right Lower Extremity with 2-D dawkins scale, color Doppler flow and spectral waveform analysis with image documentation. Limited exam was focused on the right lower extremity veins. COMPARISON: US Duplex, Ext,LOWER veins,unilat 09/02/2020 9:53 PM FINDINGS: Right deep veins: Unremarkable. The common femoral, femoral, proximal profunda femoral and popliteal veins are patent without thrombus. Normal Doppler waveforms. Normal compressibility and/or augmentation response. Right superficial veins: Unremarkable. Saphenofemoral junction is patent without thrombus. Soft tissues: Unremarkable. IMPRESSION: No evidence of deep vein thrombosis. Electronically signed by: Eze Blakely On 12/01/2020 21:39:39 PM
[2020-12-01] MEDS ORDERED: VANCOMYCIN HCL 1,000 MG, VIAL MATE ADAPTER 1 EACH in NS 250 ML IV ONE ×2 (22:00→23:00)
[2020-12-01 22:47] LABS: RSV AMPLIFICATION NEGATIVE (NEGATIVE)
[2020-12-01 23:02] VITALS: BP 136/88
[2020-12-01] MEDS ORDERED: MORPHINE 4 MG/ML 1ML VIAL/SYRINGE (J2270) IV PRN (23:20)
--- NOTE | 2020-12-01 23:45 | HPEPDOC ---
[facility] Medical History & Physical Date of Admission Dec 01, 2020 Date of Service: Dec 01, 2020 Attending Physician: JERMAINE GORDILLO MD History and Physical CHIEF COMPLAINT: [55 y/o c/o swelling, pain and erythema of right hallux x2 days] HISTORY OF PRESENT ILLNESS: [This is a 55 y/o male with a pmh of dm2, htn, copd, geri, schizophrenia who presents to the ED on 12/01 with a cc of pain, swelling of the stump of his right great toe x2 days. Patient states that he feels as though the swelling and pain are getting worse and so decided to come to the ED to be evaluated. Patient states that he does not believe that he has ever had an infection like this before. Patient states that he has not tried any at home tylenol for his pain. Patient at the time of my exam is denying fevers, chills, chest pain, sob, abd pain, n/v/d/c, paresthesias of feet, drainage from toe.] PAST MEDICAL HISTORY: 1. [Please see HPI PAST SURGICAL HISTORY: 1. [Amputation of right hallux]. SOCIAL HISTORY: Tobacco use:[Approx /2 ppd] ETOH: [Denies] Illicit drug use: [Denies] FAMILY HISTORY: Mother - DM, HTN Father - DM ALLERGIES: Please see below. REVIEW OF SYSTEMS: CONSTITUTIONAL: [See HPI]. HEENT: [Denies uri sx]. CARDIOVASCULAR: [Denies chest pain, palpitations]. RESPIRATORY: [Denies sob, wheezing]. GASTROINTESTINAL: [See HPI]. GENITOURINARY: [Denies dysuria]. SKIN: [See HPI]. MUSCULOSKELETAL: [Denies acute joint/back pain]. NEUROLOGICAL: [Denies syncope, paresthesias]. PSYCHIATRIC: [Hx of schizophrenia]. ENDOCRINE: [Hx of DM]. HEMATOLOGIC/LYMPHATIC: [Denies easy bruising]. HOME MEDICATIONS: Please see below. PHYSICAL EXAMINATION: VITAL SIGNS: Please see below. GENERAL APPEARANCE: [This is an obese 55 y/o male. He is laying in bed and dose not appear to be in any acute distress.]. HEENT: [No mass or lesion. EOMI. No scleral icterus. Nares patent. Oral mucosa moist.]. CARDIOVASCULAR: [Regular rate, rhythm. No murmurs, rubs, gallops]. LUNGS: [Decreased air flow b/l. No wheezing, rales, rhonchi.]. ABDOMEN: [Soft, nontender]. MUSCULOSKELETAL: [No joint deformity]. EXTREMITIES: [The proximal phalanx of the right hallux is amputated. The rest of the toe is grossly edematous to the first MTP joint. There is a large bullae on the plantar surface of the toe that does not appear hemorrhagic in nature. There is no appreciable drainage. The area is notably erythematous. The legs show no peripheral edema. Pulses intact. ]. NEUROLOGICAL: [Speech clear. A+Ox3. No focal deficits.]. PSYCHIATRIC: [Mood and affect appear appropriate.]. LABORATORY DATA: See below. IMAGING: [Foot XR: FINDINGS: Prior partial amputation through the mid shaft of the 1st proximal phalanx. Postsurgical changes appear relatively normal/stable when compared to prior exam. Remainder of the visualized osseous structures are relatively intact and normal. Lateral view demonstrates soft tissue swelling without subcutaneous emphysema. Incidental moderate calcaneal heel spur noted. IMPRESSION: Soft tissue swelling. No acute osseous abnormalities to suggest osteomyelitis by radiographic evaluation. Renal US: FINDINGS: Right deep veins: Unremarkable. The common femoral, femoral, proximal profunda femoral and popliteal veins are patent without thrombus. Normal Doppler waveforms. Normal compressibility and/or augmentation response. Right superficial veins: Unremarkable. Saphenofemoral junction is patent without thrombus. Soft tissues: Unremarkable. IMPRESSION: No evidence of deep vein thrombosis. ] MICROBIOLOGY: Please see below. ASSESSMENT: [This is a 55 y/o male with a pmh of dm2, htn, copd, grei, schizophrenia who presents to the ED on 12/01 with a cc of pain, swelling of the stump of his right great toe x2 days.]. . PLAN: 1. [Right hallux cellulitis/diabetic foot infection - Index of suspicion for osteomyelitis at this time is low. esr and crp are not grossly elevated and xr shows no evidence of teresa involvement - will begin broad spectrum abx vanco and cefepime at this time - mrsa pcr ordered - repeat inflammatory markers in the am - can consider mri if symptoms do not improve - morphine for pain - elevate foot - admit to med surg for iv abx 2. DM2 - sliding scale coverage - hypoglycemic protocol 3. HTN - continue lisinopril 4. Schizophrenia - continue trazodone and seroquel DVT prophylaxis - mechanical ]. Vital Signs Vital Signs Date Time Temp Pulse Resp B/P (MAP) Pulse Ox O2 Delivery O2 Flow Rate FiO2 12/01/20 23:02 98.1 94 16 136/88 (104) 96 Room Air Laboratory Data Labs 24H Laboratory Tests 2 12/01/20 19:01: Immature Granulocyte % (Auto) 0.5, Neutrophils (%) (Auto) 61.9, Lymphocytes (%) (Auto) 27.3, Monocytes (%) (Auto) 8.7H, Eosinophils (%) (Auto) 1.3, Basophils (%) (Auto) 0.3, Neutrophils # (Auto) 7.2, Lymphocytes # (Auto) 3.2, Monocytes # (Auto) 1.0H, Eosinophils # (Auto) 0.2, Basophils # (Auto) 0.0, Nucleated Red Blood Cells % (auto) 0.0, Erythrocyte Sedimentation Rate 24H, Lactic Acid Level 2.0, C-Reactive Protein, Quantitative 11.50H 12/01/20 19:40: POC Glucose (Misc Panel) 197H, POC Sodium (Misc Panel) 138, POC Potassium (Misc Panel) 4.9, POC Chloride (Misc Panel) 101, POC Total CO2 (Misc Panel) 26.0, POC Blood Urea Nitrogen (Misc Panel 12, POC Ionized Calcium (Misc Panel) 4.3L, POC Creatinine (Misc Panel) 1.1, POC Hematocrit (Misc Panel) 46.0 12/01/20 22:05: Coronavirus (COVID-19)(PCR) NEGATIVE, Influenza Type A (RT-PCR) NEGATIVE, Influenza Type B (RT-PCR) NEGATIVE, Respiratory Syncytial Virus (PCR) NEGATIVE CBC/BMP Laboratory Tests 12/01/20 19:01 Microbiology Microbiology 12/01/20 Blood Culture, Received Pending 12/01/20 Blood Culture, Received Pending Home Medications Scheduled Alogliptin Veto/Metformin HCl (Alogliptin-Metformin 12.5-1000) 1 Each Tablet, 1 TAB PO BID Glipizide (Glipizide ER) 10 Mg Tab.er.24, 10 MG PO DAILY Lisinopril (Lisinopril) 20 Mg Tablet, 20 MG PO DAILY Meloxicam (Meloxicam) 15 Mg Tablet, 15 MG PO DAILY Paliperidone Palmitate (Invega Sustenna) 234 Mg/1.5 Ml Syringe, 234 MG IM QMONTH Quetiapine Fumarate (Quetiapine Fumarate) 300 Mg Tablet, 300 MG PO QHS Trazodone HCl (Trazodone HCl) 150 Mg Tablet, 150 MG PO QHS Allergies Coded Allergies: chlorpromazine (Verified Allergy, Unknown, 10/22/20) haloperidol (Verified Adverse Reaction, Unknown, unknown, 07/27/20) Per brother, there was a reaction in the past the skilled nursing. He was unable to describe the reaction. A-FIB/CHADSVASC A-FIB History Current/History of A-Fib/PAF?: No SHAKIRA BUSTOS Dec 01, 2020 23:45
[2020-12-02] MEDS ORDERED: CEFEPIME HCL 2 GM in D5W MINI-BAG PLUS 50 ML IV SCH ×2
[2020-12-02] MEDS: QUEtiapine FUMARATE 100 MG TAB PO SCH ×2 (01:07→21:35)
[2020-12-02] MEDS: traZODone 50 MG TAB PO SCH ×2 (01:07→21:35)
[2020-12-02] MEDS ORDERED: NS 500 ML IV ONE (05:05)
[2020-12-02 06:00] VITALS: BP 141/84
[2020-12-02 07:12] LABS: HEMATOCRIT 38.8 % (42.0-52.0); HEMOGLOBIN 12.9 g/dl (13.5-17.5); MEAN CORPUSCULAR HEMOGLOBIN 27.2 pg (27.0-33.0); MEAN CORPUSCULAR HGB CONC 33.2 g/dl (32.0-36.5); MEAN CORPUSCULAR VOLUME 81.7 fl (80.0-96.0); PLATELET COUNT, AUTOMATED 250 10^3/uL (150-450); RED BLOOD COUNT 4.75 10^6/uL (4.30-6.10); WHITE BLOOD COUNT 8.1 10^3/uL (4.0-10.0)
[2020-12-02] MEDS ORDERED: HumaLOG INSULIN (NovoLOG) PER UNIT SC SCH (07:30)
[2020-12-02 07:41] LABS: BLOOD UREA NITROGEN 8 MG/DL (7-18); C REACTIVE PROTEIN QUANTITATIV 9.77 MG/DL (0.00-0.30); CALCIUM LEVEL 8.3 MG/DL (8.5-10.1); CARBON DIOXIDE LEVEL 27 MEQ/L (21-32); CHLORIDE LEVEL 102 MEQ/L (98-107); CREATININE FOR GFR 0.91 MG/DL (0.70-1.30); GLOMERULAR FILTRATION RATE > 60.0 (>56); GLUCOSE, FASTING 184 MG/DL (70-100); MAGNESIUM LEVEL 1.6 MG/DL (1.8-2.4); POTASSIUM SERUM 3.8 MEQ/L (3.5-5.1); SODIUM LEVEL 136 MEQ/L (136-145); TROPONIN I < 0.02 NG/ML (< 0.10)
[2020-12-02 07:54] LABS: HEMOGLOBIN A1c 7.4 %
[2020-12-02] MEDS: MELOXICAM (MOBIC) 7.5 MG TAB PO SCH (08:31)
[2020-12-02] MEDS ORDERED: VANCOMYCIN HCL 1,000 MG, VIAL MATE ADAPTER 1 EACH in NS 250 ML IV SCH (09:00)
[2020-12-02] MEDS ORDERED: ENOXAPARIN 40MG/0.4ML SYRINGE (J1650 PER 10MG) SC ONE (10:15)
--- NOTE | 2020-12-02 11:30 | IPN ---
PROGRESS NOTE DATE: 12/02/2020 SUBJECTIVE: The patient denies any pain and says the pain is 2/10 at the bedside of the right foot. The patient has no fever or chills overnight. No other new complaints. Per nursing, the patient has been stable despite slightly high blood pressure with systolic pressure of 141. He denies any headache, chest pain, pressure, tightness, nausea, vomiting, epigastric discomfort. OBJECTIVE: VITAL SIGNS: Temperature 98.3, pulse 87, respiratory rate 20, blood pressure 141/84, 99% on room air. GENERAL: The patient is awake, alert, and oriented to person, place, and time. Lying on his right side. In no distress. No JVD. No use of respiratory accessory muscles. LUNGS: Clear to auscultation. No wheezing, rales, or rhonchi. HEART: S1, S2. Sinus rhythm. ABDOMEN: Obese, soft, nontender, and nondistended with positive bowel sounds. EXTREMITIES: No cyanosis or clubbing. Right hallux proximal phalanx is amputated. Some erythema and a bullae in the plantar surface of the toe. No gangrenous areas. No pitting edema. Dorsalis pedis and posterior tibialis are noted 2+ with warm lower extremity. DIAGNOSTIC STUDIES: Laboratory data, imaging studies, and microbiology have been reviewed. ASSESSMENT: Mr. Ulloa is a 55-year-old -[place] gentleman admitted for right cellulitis with past medical history significant for diabetes, hypertension, chronic obstructive pulmonary disease (COPD), obstructive sleep apnea (DEVIN), and schizophrenia with the following acute issues: 1. Right hallux cellulitis diabetic foot infection. 2. Type 2 diabetes. 3. Hypertension. 4. Sleep apnea. 5. History of chronic obstructive pulmonary disease (COPD) compensated. 6. Obstructive sleep apnea (DEVIN). 7. Schizophrenia. PLAN: Threshold EPA is continued on intravenous (IV) vancomycin and pain medications. Blood cultures are pending. Would change to ceftaroline. White count is normal. Monitor the patient's glucose to prevent uncontrolled type 2 diabetes. Physical therapy (PT) and occupational therapy (OT) in the morning. [facility]
[2020-12-02] MEDS: HumaLOG INSULIN (NovoLOG) PER UNIT SC SCH ×3 (12:06→21:00)
[2020-12-02] MEDS: CEFTAROLINE FOSAMIL 600 MG in D5W MINI-BAG PLUS 50 ML IV SCH (12:06)
[2020-12-02 14:00] VITALS: BP 122/65
[2020-12-02 22:00] VITALS: BP 120/65
[2020-12-03] MEDS: CEFTAROLINE FOSAMIL 600 MG in D5W MINI-BAG PLUS 50 ML IV SCH ×3 (01:09→23:13)
[2020-12-03 06:00] VITALS: BP 141/88
[2020-12-03 07:20] LABS: HEMATOCRIT 37.9 % (42.0-52.0); HEMOGLOBIN 12.4 g/dl (13.5-17.5); MEAN CORPUSCULAR HEMOGLOBIN 26.7 pg (27.0-33.0); MEAN CORPUSCULAR HGB CONC 32.7 g/dl (32.0-36.5); MEAN CORPUSCULAR VOLUME 81.7 fl (80.0-96.0); PLATELET COUNT, AUTOMATED 263 10^3/uL (150-450); RED BLOOD COUNT 4.64 10^6/uL (4.30-6.10); WHITE BLOOD COUNT 7.9 10^3/uL (4.0-10.0)
[2020-12-03 07:37] LABS: BLOOD UREA NITROGEN 7 MG/DL (7-18); CALCIUM LEVEL 8.2 MG/DL (8.5-10.1); CARBON DIOXIDE LEVEL 28 MEQ/L (21-32); CHLORIDE LEVEL 103 MEQ/L (98-107); CREATININE FOR GFR 1.05 MG/DL (0.70-1.30); GLOMERULAR FILTRATION RATE > 60.0 (>56); GLUCOSE, FASTING 219 MG/DL (70-100); POTASSIUM SERUM 3.9 MEQ/L (3.5-5.1); SODIUM LEVEL 138 MEQ/L (136-145)
[2020-12-03] MEDS: HumaLOG INSULIN (NovoLOG) PER UNIT SC SCH ×4 (09:04→21:00)
[2020-12-03] MEDS: MELOXICAM (MOBIC) 7.5 MG TAB PO SCH (09:05)
[2020-12-03] MEDS: ENOXAPARIN 40MG/0.4ML SYRINGE (J1650 PER 10MG) SC SCH (09:05)
--- NOTE | 2020-12-03 10:29 | IPN ---
PROGRESS NOTE DATE: 12/03/2020 SUBJECTIVE: The patient says his pain is 2/10 at the right foot still with persistent swelling. No fever or chills overnight. No new complaints. OBJECTIVE: VITAL SIGNS: Temperature 97.7, pulse 88, respiratory rate 18, blood pressure 141/88, 100% on room air. GENERAL: The patient is awake, alert, and oriented to person, place, and time. Answering questions appropriately. LUNGS: Clear to auscultation. No wheezing, rales, or rhonchi. HEART: S1, S2. Sinus rhythm. ABDOMEN: Obese, soft, nontender, and nondistended. Positive bowel sounds x4 quadrants. No rebound or guarding. EXTREMITIES: Persistent right foot swelling with bullae on the plantar surface of the toe. Right hallux proximal phalanx is amputated. No pitting edema. Dorsalis pedis and posterior tibialis pulses are noted 2+. Warm lower extremity . DIAGNOSTIC STUDIES: Laboratory data, imaging studies, and microbiology have been reviewed. ASSESSMENT: This is a 55-year-old -[place] male admitted for right foot cellulitis with history of diabetes, hypertension, chronic obstructive pulmonary disease (COPD), obstructive sleep apnea (DEVIN), and schizophrenia. Current issues: 1. Right hallux diabetic foot infection with cellulitis. 2. Type 2 diabetes 3. Hypertension. 4. Obstructive sleep apnea. 5. History of chronic obstructive pulmonary disease (COPD) appears to be compensated. 6. Obstructive sleep apnea (DEVIN). 7. Schizophrenia. PLAN: The patient is continued on intravenous vancomycin due to positive methicillin-resistant Staphylococcus aureus (MRSA). He is continued on home medications. The patient has been transitioned to ceftaroline. White count is normal. He has remained afebrile. Stable on his home medications. The patient will need one to two more days of IV antibiotics and may be discharged home on Bactrim or doxycycline as an outpatient to cover MRSA infection.
[2020-12-03 14:00] VITALS: BP 151/95
[2020-12-03] MEDS ORDERED: NICOTINE POLACRILEX 2 MG GUM PO PRN (18:10)
[2020-12-03] MEDS: NICOTINE 14 MG/24 HR TRANSDERMAL TD SCH (18:19)
[2020-12-03] MEDS: QUEtiapine FUMARATE 100 MG TAB PO SCH (21:28)
[2020-12-03] MEDS: traZODone 50 MG TAB PO SCH (21:28)
[2020-12-04 06:13] VITALS: BP 148/78
[2020-12-04 06:32] LABS: HEMATOCRIT 39.2 % (42.0-52.0); HEMOGLOBIN 12.9 g/dl (13.5-17.5); MEAN CORPUSCULAR HEMOGLOBIN 26.5 pg (27.0-33.0); MEAN CORPUSCULAR HGB CONC 32.9 g/dl (32.0-36.5); MEAN CORPUSCULAR VOLUME 80.7 fl (80.0-96.0); PLATELET COUNT, AUTOMATED 264 10^3/uL (150-450); RED BLOOD COUNT 4.86 10^6/uL (4.30-6.10); WHITE BLOOD COUNT 7.5 10^3/uL (4.0-10.0)
[2020-12-04 07:00] LABS: BLOOD UREA NITROGEN 7 MG/DL (7-18); CALCIUM LEVEL 8.8 MG/DL (8.5-10.1); CARBON DIOXIDE LEVEL 30 MEQ/L (21-32); CHLORIDE LEVEL 103 MEQ/L (98-107); CREATININE FOR GFR 0.95 MG/DL (0.70-1.30); GLOMERULAR FILTRATION RATE > 60.0 (>56); GLUCOSE, FASTING 151 MG/DL (70-100); POTASSIUM SERUM 4.1 MEQ/L (3.5-5.1); SODIUM LEVEL 137 MEQ/L (136-145)
[2020-12-04] MEDS ORDERED: AUGM875T28 PO (07:54)
[2020-12-04] MEDS ORDERED: DOXY-350 PO (07:54)
[2020-12-04 08:42] VITALS: BP 159/87
[2020-12-04] MEDS: HumaLOG INSULIN (NovoLOG) PER UNIT SC SCH (08:42)
[2020-12-04] MEDS: ENOXAPARIN 40MG/0.4ML SYRINGE (J1650 PER 10MG) SC SCH (08:42)
[2020-12-04] MEDS: NICOTINE 14 MG/24 HR TRANSDERMAL TD SCH (08:42)
[2020-12-04] MEDS: MELOXICAM (MOBIC) 7.5 MG TAB PO SCH (08:42)
[2020-12-04] MEDS: CEFTAROLINE FOSAMIL 600 MG in D5W MINI-BAG PLUS 50 ML IV SCH (11:00)
--- NOTE | 2020-12-04 11:27 | DS.PDOC ---
Discharge Summary General Date of Admission Dec 01, 2020 at 21:17 Date of Discharge 12/04/2020 Discharge Summary PROCEDURES PERFORMED DURING STAY: [None]. ADMITTING DIAGNOSES / DISCHARGE DIAGNOSES: s/p R hallux diabetic foot infection with cellulitis DM2 HTN DEVIN Active smoker Chronic COPD Schizophrenia DVT prophylaxis COMPLICATIONS/CHIEF COMPLAINT: Cellulitis Of Right Foot. HISTORY OF PRESENT ILLNESS: Patient is a 55-year-old male with past medical history of diabetes, hypertension, COPD, obstructive sleep apnea, schizophrenia presented to the emergency room on 12/01 with pain of his right foot for the last 2 days. Patient was admitted to the hospice service for further evaluation and treatment of suspected cellulitis. Patient was seen and examined at the bedside currently reports that his right foot pain has done better, there does not appear to be any significant erythema, warmth or discharge. Patient was transitioned over to oral antibiotics with instructions to follow-up with Dr. Zhou as an outpatient. HOSPITAL COURSE: s/p R hallux diabetic foot infection with cellulitis - Patient is hemodynamically stable and afebrile - There does not appear to be any significant erythema, warmth or drainage - MRSA positive - Blood cultures 12/01: No growth at 48 hours - Will DC Ceftaroline; Will transition antibiotics to Augmentin and Doxycycline; will complete antibiotic course as an outpatient - Patient has been instructed to follow-up with primary care provider and Dr. Zhou within the next 5 days DM2 - c/w ISS HTN - BP appears well controlled - c/w Lisinopril DEVIN Active smoker - Advised smoking cessation - Continue with nicotine gum when necessary Chronic COPD - No evidence of exacerbation - Continue with therapy as ordered Schizophrenia - c/w Quetiapine / Trazodone DVT prophylaxis - c/w Lovenox DISCHARGE MEDICATIONS: Please see below. ALLERGIES: Please see below. PHYSICAL EXAMINATION ON DISCHARGE: Vitals (See below) General: Lying in bed, appears comfortable, AAOx3 HEENT: NC, AT CVS: RRR, +S1S2 Lungs: Fair air entry b/l, no evidence of wheezing, rales or rhonchi Abdomen: Soft, ND, NT Extremities: - Edema, - Calf tenderness, R foot without erythema / warmth or tenderness, R foot medial side of 1st hallux with blister - no evidence of infection LABORATORY DATA: Please see below. IMAGING: XR R foot 12/01: Soft tissue swelling. No acute osseous abnormalities to suggest osteomyelitis by radiographic evaluation. Vascular US RLE 12/01: No evidence of deep vein thrombosis. ACTIVITY: [As tolerated]. DISCHARGE PLAN: Follow-up with primary care provider, and podiatry within the next 7 days Remain compliant with treatment plan and medications Return to the ER if you experience any problems DISPOSITION: Home with services DISCHARGE CONDITION: [Stable]. TIME SPENT ON DISCHARGE: 35 minutes. Vital Signs/I&Os Vital Signs Date Time Temp Pulse Resp B/P (MAP) Pulse Ox O2 Delivery O2 Flow Rate FiO2 12/04/20 08:42 159/87 12/04/20 06:13 98.8 86 20 98 Room Air I&O- Last 24 Hours up to 6 AM 12/04/20 05:59 Intake Total 2160 ml Output Total 500 ml Balance 1660 ml Laboratory Data Labs 24H Laboratory Tests 2 12/03/20 12:06: Lab Scanned Report Miscellaneous Lab 12/04/20 06:17: Nucleated Red Blood Cells % (auto) 0.0, Anion Gap 4L, Glomerular Filtration Rate > 60.0, Calcium Level 8.8 CBC/BMP Laboratory Tests 12/04/20 06:17 Microbiology Microbiology 12/01/20 Blood Culture - Preliminary, Resulted No Growth after 48 hours. All Specime... 12/01/20 Blood Culture - Preliminary, Resulted No Growth after 48 hours. All Specime... Discharge Medications Scheduled Alogliptin Veto/Metformin HCl (Alogliptin-Metformin 12.5-1000) 1 Each Tablet, 1 TAB PO BID, (Reported) Amoxicillin/Potassium Clav (Augmentin 875-125 Tablet) 1 Each Tablet, 1 TAB PO BID Doxycycline Monohydrate (Doxycycline) 100 Mg Capsule, 1 CAP PO BID Glipizide (Glipizide ER) 10 Mg Tab.er.24, 10 MG PO DAILY, (Reported) Lisinopril (Lisinopril) 20 Mg Tablet, 20 MG PO DAILY, (Reported) Meloxicam (Meloxicam) 15 Mg Tablet, 15 MG PO DAILY, (Reported) Paliperidone Palmitate (Invega Sustenna) 234 Mg/1.5 Ml Syringe, 234 MG IM QMONTH, (Reported) Quetiapine Fumarate (Quetiapine Fumarate) 300 Mg Tablet, 300 MG PO QHS, (Reported) Trazodone HCl (Trazodone HCl) 150 Mg Tablet, 150 MG PO QHS, (Reported) Allergies Coded Allergies: chlorpromazine (Verified Allergy, Unknown, 10/22/20) haloperidol (Verified Adverse Reaction, Unknown, unknown, 07/27/20) Per brother, there was a reaction in the past the [facility]. He was unable to describe the reaction. MADAY HARRIS MD Dec 04, 2020 11:27
== END 2020-12-04 12:10 | disposition home health service (06) | DRG 420 ==
LOC: M ED 15:07 → M ED INP 21:17 → M MS5PR 22:55
PROVIDERS: ADMIT Internal Medicine; ATTEND Internal Medicine
DX: E11.628 Type 2 diabetes mellitus with other skin complications (principal); F20.9 Schizophrenia, unspecified; I10 Essential (primary) hypertension; J44.9 Chronic obstructive pulmonary disease, unspecified; G47.33 Obstructive sleep apnea (adult) (pediatric); L03.031 Cellulitis of right toe; F17.200 Nicotine dependence, unspecified, uncomplicated; Z79.899 Other long term (current) drug therapy; Z88.8 Allergy status to other drugs, medicaments and biological substances

== ENCOUNTER 2020-12-07 18:56 | Emergency (ER) | payer OTHER ==
[~2020-12-07] VITALS: Ht 188 cm; Wt 123.6 kg
[~2020-12-07 18:56] MED LIST changes: +DOXY-350 PO
[2020-12-07 18:57] VITALS: BP 166/84
== END 2020-12-07 20:34 | disposition left against medical advice (07) ==
LOC: M ED 18:56
DX: Z53.21 Procedure and treatment not carried out due to patient leaving prior to being seen by health care provider (principal)

== ENCOUNTER 2020-12-15 16:34 | Emergency (ER) | payer OTHER ==
[~2020-12-15] VITALS: Ht 188 cm; Wt 125.0 kg
[2020-12-15 16:34] VITALS: BP 144/85
== END 2020-12-15 19:05 | disposition home or self-care (01) ==
LOC: M ED 16:34
DX: G54.6 Phantom limb syndrome with pain (principal); E11.9 Type 2 diabetes mellitus without complications; I10 Essential (primary) hypertension; Z79.84 Long term (current) use of oral hypoglycemic drugs; Z79.899 Other long term (current) drug therapy; Z88.8 Allergy status to other drugs, medicaments and biological substances; Z89.411 Acquired absence of right great toe

== ENCOUNTER 2020-12-16 16:30 | Emergency (ER) | payer OTHER ==
[~2020-12-16] VITALS: Ht 188 cm; Wt 123.8 kg
[2020-12-16 17:43] VITALS: BP 151/97
== END 2020-12-16 18:01 | disposition left against medical advice (07) ==
LOC: M ED 16:30
DX: Z53.21 Procedure and treatment not carried out due to patient leaving prior to being seen by health care provider (principal)

== ENCOUNTER 2020-12-18 19:44 | Emergency (ER) | payer OTHER ==
[~2020-12-18] VITALS: Ht 188 cm; Wt 124.4 kg
[2020-12-18 19:45] VITALS: BP 156/90
== END 2020-12-18 20:58 | disposition left against medical advice (07) ==
LOC: M ED 19:44
DX: Z53.21 Procedure and treatment not carried out due to patient leaving prior to being seen by health care provider (principal)

== ENCOUNTER 2020-12-26 23:57 | Emergency (ER) | payer OTHER ==
[~2020-12-26] VITALS: Ht 188 cm; Wt 130.9 kg
[2020-12-26 23:57] VITALS: BP 161/91
== END 2020-12-27 05:46 | disposition left against medical advice (07) ==
LOC: M ED 23:57
DX: Z53.21 Procedure and treatment not carried out due to patient leaving prior to being seen by health care provider (principal)

== ENCOUNTER 2021-01-09 13:03 | Emergency (ER) | payer OTHER ==
[~2021-01-09] VITALS: Ht 188 cm; Wt 125.6 kg
[~2021-01-09 13:03] MED LIST changes: -QUET400T PO; +QUET400T2 PO
[2021-01-09 13:04] VITALS: BP 162/89
[2021-01-10] MEDS ORDERED: BACIOIN5 EXT (20:19)
== END 2021-01-09 15:49 | disposition home or self-care (01) ==
LOC: M ED 13:03
DX: M54.5 Low back pain (principal); Z88.8 Allergy status to other drugs, medicaments and biological substances; Z79.899 Other long term (current) drug therapy

== ENCOUNTER 2021-01-10 18:17 | Emergency (ER) | payer OTHER ==
[~2021-01-10] VITALS: Ht 188 cm; Wt 127.0 kg
[2021-01-10] MEDS ORDERED: BACIOIN5 EXT (20:19)
[2021-01-10] MEDS ORDERED: ACETAMINOPHEN 500 MG TAB PO ONE (20:20)
[2021-01-10 20:40] VITALS: BP 168/90
== END 2021-01-10 20:42 | disposition home or self-care (01) ==
LOC: M ED 18:17
DX: M79.674 Pain in right toe(s) (principal); W22.09XA Striking against other stationary object, initial encounter; Y92.009 Unspecified place in unspecified non-institutional (private) residence as the place of occurrence of the external cause; Y93.9 Activity, unspecified; Y99.9 Unspecified external cause status; G44.309 Post-traumatic headache, unspecified, not intractable; J44.9 Chronic obstructive pulmonary disease, unspecified; G47.33 Obstructive sleep apnea (adult) (pediatric); E11.9 Type 2 diabetes mellitus without complications; F41.9 Anxiety disorder, unspecified; F32.9 Major depressive disorder, single episode, unspecified; F17.200 Nicotine dependence, unspecified, uncomplicated; Z88.8 Allergy status to other drugs, medicaments and biological substances; Z79.899 Other long term (current) drug therapy

== ENCOUNTER 2021-01-12 04:41 | Emergency (ER) | payer OTHER ==
[~2021-01-12] VITALS: Ht 188 cm; Wt 124.9 kg
[~2021-01-12 04:41] MED LIST changes: +BACIOIN5 EXT
[2021-01-12 04:42] VITALS: BP 161/99
== END 2021-01-12 06:53 | disposition left against medical advice (07) ==
LOC: M ED 04:41
DX: Z53.21 Procedure and treatment not carried out due to patient leaving prior to being seen by health care provider (principal)

== ENCOUNTER 2021-01-12 17:22 | Emergency (ER) | payer OTHER ==
[~2021-01-12] VITALS: Ht 188 cm; Wt 123.5 kg
[2021-01-12 17:23] VITALS: BP 146/82
== END 2021-01-12 19:52 | disposition left against medical advice (07) ==
LOC: M ED 17:22
DX: Z53.21 Procedure and treatment not carried out due to patient leaving prior to being seen by health care provider (principal)

== ENCOUNTER 2021-01-14 15:03 | Emergency (ER) | payer OTHER ==
[~2021-01-14] VITALS: Ht 188 cm; Wt 122.6 kg
[2021-01-14 15:03] VITALS: BP 134/90
== END 2021-01-14 16:32 | disposition left against medical advice (07) ==
LOC: M ED 15:03
DX: Z53.21 Procedure and treatment not carried out due to patient leaving prior to being seen by health care provider (principal)

== ENCOUNTER 2021-01-16 00:05 | Inpatient (IN) | payer MEDICAID, OTHER ==
[~2021-01-16] VITALS: Ht 188 cm; Wt 123.6 kg
[2021-01-16 01:09] LABS: HEMATOCRIT 42.1 % (42.0-52.0); HEMOGLOBIN 14.3 g/dl (13.5-17.5); MEAN CORPUSCULAR HEMOGLOBIN 27.4 pg (27.0-33.0); MEAN CORPUSCULAR VOLUME 80.8 fl (80.0-96.0); PLATELET COUNT, AUTOMATED 303 10^3/uL (150-450); RED BLOOD COUNT 5.21 10^6/uL (4.30-6.10); WHITE BLOOD COUNT 10.5 10^3/uL (4.0-10.0)
[2021-01-16 01:29] LABS: AMPHETAMINES LEVEL URINE POSITIVE (NEGATIVE); BARBITURATES URINE NEGATIVE (NEGATIVE); BENZODIAZEPINES URINE NEGATIVE (NEGATIVE); CANNABINOIDS URINE POSITIVE (NEGATIVE); COCAINE METABOLITE URINE POSITIVE (NEGATIVE); METHADONE URINE NEGATIVE (NEGATIVE); OPIATES URINE NEGATIVE (NEGATIVE); PHENCYCLIDINE URINE NEGATIVE (NEGATIVE)
[2021-01-16 01:38] LABS: ACETAMINOPHEN LEVEL < 2.0 UG/ML (10.0-30.0); ALBUMIN 3.9 GM/DL (3.2-5.2); ALT/SGPT 113 U/L (12-78); BILIRUBIN,DIRECT 0.3 MG/DL (0.0-0.2); BILIRUBIN,TOTAL 0.6 MG/DL (0.2-1.0); BLOOD UREA NITROGEN 16 MG/DL (7-18); CALCIUM LEVEL 8.9 MG/DL (8.5-10.1); CARBON DIOXIDE LEVEL 26 MEQ/L (21-32); CHLORIDE LEVEL 105 MEQ/L (98-107); CREATININE FOR GFR 2.01 MG/DL (0.70-1.30); ETHYL ALCOHOL (ETHANOL) < 0.003 % (0.000-0.010); GLOMERULAR FILTRATION RATE 36.6 (>56); GLUCOSE, FASTING 135 MG/DL (70-100); POTASSIUM SERUM 3.9 MEQ/L (3.5-5.1); SALICYLATE LEVEL 2.1 MG/DL (5.0-30.0); SODIUM LEVEL 137 MEQ/L (136-145); TOTAL PROTEIN 8.2 GM/DL (6.4-8.2)
[2021-01-16] MEDS ORDERED: NS 1,000 ML IV ONE ×2 (02:15→03:35)
[2021-01-16] MEDS ORDERED: LORazepam 2 MG/ML VIAL IV STA ×3 (02:41→03:32)
[2021-01-16 02:45] LABS: CPK CREATINE PHOSPHOKINASE 584 U/L (39-308)
[2021-01-16 04:45] LABS: RSV AMPLIFICATION NEGATIVE (NEGATIVE)
[2021-01-16 05:36] LABS: CALCIUM LEVEL 8.2 MG/DL (8.5-10.1); CREATININE FOR GFR 1.4 MG/DL (0.70-1.30); GLOMERULAR FILTRATION RATE 55.6 (>56); POTASSIUM SERUM 3.2 MEQ/L (3.5-5.1)
[2021-01-16] MEDS ORDERED: POTASSIUM CHLORIDE 10MEQ SR TABLET PO ONE (05:40)
[2021-01-16] MEDS ORDERED: LORazepam 1 MG TAB PO STA (08:38)
[2021-01-16] MEDS ORDERED: PALIPERIDONE 3 MG ER TAB (INVEGA) PO ONE (09:00)
[2021-01-16] MEDS ORDERED: ALOG1TAB2 PO (09:03)
[2021-01-16] MEDS ORDERED: glipiZIDE XL 5 MG TABCR PO ONE (10:55)
[2021-01-16] MEDS ORDERED: HOME MED LIST COMPLETE! XX SCH (14:20)
[2021-01-16 14:45] VITALS: BP 150/73
[2021-01-16] MEDS ORDERED: MOM 30ML SUSPENSION UDC PO PRN (14:55)
[2021-01-16] MEDS ORDERED: ACETAMINOPHEN TAB 650MG DOSE (2X325MG) PO PRN (14:55)
[2021-01-16] MEDS ORDERED: GLUCOSE 4GM CHEW TABLET PO PRN (14:55)
[2021-01-16] MEDS ORDERED: LORazepam 1 MG TAB PO PRN (14:55)
[2021-01-16] MEDS ORDERED: OLANZapine 5 MG TAB PO PRN (14:55)
[2021-01-16] MEDS ORDERED: DEXTROSE 50% 50 ML SYRINGE IV PRN (14:55)
[2021-01-16] MEDS ORDERED: MAALOX 30 ML SUSP *UDC PO PRN (14:55)
[2021-01-16] MEDS ORDERED: diphenhydrAMINE 25MG CAP PO PRN (14:55)
[2021-01-16] MEDS ORDERED: GLUCAGON INJ 1MG VIAL SC PRN (14:55)
[2021-01-16] MEDS ORDERED: NICOTINE 21MG/24HR 1 EA TRANSDERMAL TD ONE (15:25)
--- NOTE | 2021-01-16 16:16 | MHCRPDOC ---
[facility] Consultation Consultation DATE OF CONSULTATION: 01/16/21 CONSULTATION REQUESTED BY: ED team REASON FOR CONSULTATION: Psychosis. RELEVANT HISTORY: Patient is known to the service, has a history of schizophreni a versus schizoaffective disorder, homelessness, polysubstance abuse, substance- induced psychotic disorder, multiple inpatient visits, Last [facility] visit was September 2020. He presented with EMS after being found by police in the facility at the [facility], because the alarm was triggered and he happened to be in the area. Talk screen was positive for cannabis vitamins, currently was swearing at "[employer]" and started walking into traffic oblivious to the cars. Was given 6 mg of Ativan for reducing agitation. PAST PSYCHIATRIC HISTORY: Schizoaffective disorder, paranoid schizophrenia, polysubstance abuse, homelessness, substance abuse psychotic disorder, multiple repeated admissions, no clear suicide attempt, noncompliant with follow-up outpatient, noncompliant with medications. PAST MEDICAL HISTORY:Multiple medical issues, diabetes, hypertension, COPD, toe amputation FAMILY HISTORY: Per chart review psychiatric and addiction disorders PERSONAL AND SOCIAL HISTORY: Unable to fully evaluate at this time SUBSTANCE ABUSE HISTORY: Methamphetamine, cannabis, cocaine, all positive on tox screen during this admission LEGAL HISTORY: Unclear at this time MENTAL STATUS EXAMINATION: Patient is a 56-year old -[place]er male, who is acutely psychotic, very tall, lying in bed. Speech is garbled. Language skills are poor. Thought processes including: Disorder. Thought content: Unable to fully assess. Abstract reasoning, and computation: Unable to fully assess. Description of associations: Unable to fully assess. Description of abnormal or psychotic thoughts: Grossly psychotic and internally preoccupied. Judgment: Poor. Insight: Very poor. Orientation to unable to fully assess. Recent and remote memory: Unable to fully assess. Attention span and concentration: Poor Language: Sri Lankan. Fund of knowledge: Below average per chart review. Mood: Unable to fully assess. Affect: Psychotic. DIAGNOSIS: 1. Unspecified psychotic disorder PLAN: 1. Admit time [facility], start as needed medications for agitation, 10 of olanzapine every 8 hours, spoke with PSA for disposition and order placement. Vital Signs Vital Signs Date Time Temp Pulse Resp B/P (MAP) Pulse Ox O2 Delivery O2 Flow Rate FiO2 01/16/21 15:41 96.5 99 18 141/84 (103) 100 01/16/21 06:02 Room Air Laboratory Data 24H Labs Laboratory Tests 2 01/16/21 00:51: Nucleated Red Blood Cells % (auto) 0.0, Urine Color PHOEBE, Urine Appearance TURBIDH, Urine pH 5.0, Urine Specific [place] 1.032, Urine Protein 2+H, Urine Glucose (UA) 1+H, Urine Ketones TRACEH, Urine Blood NEGATIVE, Urine Nitrite NEGATIVE, Urine Bilirubin 1+H, Urine Urobilinogen 4.0H, Urine Leukocyte Esterase NEGATIVE, Urine WBC (Auto) 3, Urine RBC (Auto) 0, Urine Hyaline Casts (Auto) 8, Urine Bacteria (Auto) NEGATIVE, Urine Squamous Epithelial Cells 8, Urine Mucus (Auto) LARGE, Urine Sperm (Auto) , Anion Gap 6L, Glomerular Filtration Rate 36.6L, Calcium Level 8.9, Total Bilirubin 0.6, Direct Bilirubin 0.3H, Aspartate Amino Transf (AST/SGOT) 70H, Alanine Aminotransferase (ALT/SGPT) 113H, Alkaline Phosphatase 111, Total Creatine Kinase 584H, Total Protein 8.2, Albumin 3.9, Albumin/Globulin Ratio 0.9, Thyroid Stimulating Hormone (TSH) 1.790, Salicylates Level 2.1L, Urine Opiates Screen NEGATIVE, Urine Methadone Screen NEGATIVE, Acetaminophen Level < 2.0L, Urine Barbiturates Screen NEGATIVE, Urine Phencyclidine Screen NEGATIVE, Urine Amphetamines Screen POSITIVEH, Urine Benzodiazepines Screen NEGATIVE, Urine Cocaine Metabolite Screen POSITIVEH, Urine Cannabinoids Screen POSITIVEH, Ethyl Alcohol Level < 0.003 01/16/21 03:58: Coronavirus (COVID-19)(PCR) NEGATIVE, Influenza Type A (RT-PCR) NEGATIVE, Influenza Type B (RT-PCR) NEGATIVE, Respiratory Syncytial Virus (PCR) NEGATIVE 01/16/21 04:58: Anion Gap 6L, Glomerular Filtration Rate 55.6L, Calcium Level 8.2L Home Medications Current Medications Current Medications Medications (Trade) Dose Ordered Sig/Preston Route PRN Reason Start Time Stop Time Status Last Admin Dose Admin Acetaminophen (Tylenol Tab) 650 mg Q6HP PRN PO HEADACHE or MILD DISCOMFORT 01/16/21 14:55 Al Hydrox/Mg Hydrox/Simethicone (Mylanta) 30 ml Q4HP PRN PO HEARTBURN/INDIGESTION 01/16/21 14:55 Dextrose (Dextrose 50%) 25 ml ASDIRECTED PRN IV SEE LABEL COMMENTS 01/16/21 14:55 Diphenhydramine HCl (Benadryl) 50 mg Q6HP PRN PO ANXIETY/AGITATION 01/16/21 14:55 Glipizide (Glucotrol Xl) 10 mg DAILY PO 01/17/21 09:00 Glucagon (Glucagon) 1 mg ASDIRECTED PRN SC SEE LABEL COMMENTS 01/16/21 14:55 Glucose (Glucose) 16 GM ASDIRECTED PRN PO SEE LABEL COMMENTS 01/16/21 14:55 Home Med (Home Med List Complete!) ASDIRECTED XX 01/16/21 14:20 01/16/21 14:33 DC Insulin Human Lispro (HumaLOG INSULIN) See Protocol Table AC SC 01/16/21 17:30 Insulin Human Lispro (HumaLOG INSULIN) See Protocol Table QHS SC 01/16/21 21:00 Lisinopril (Prinivil) 20 mg DAILY PO 01/17/21 09:00 Lorazepam (Ativan) 1 mg STAT STAT PO 01/16/21 08:38 01/16/21 08:40 DC 01/16/21 08:48 Lorazepam (Ativan) 2 mg Q6HP PRN PO ANXIETY/AGITATION 01/16/21 14:55 Lorazepam (Ativan) 2 mg STAT STAT IV 01/16/21 02:41 01/16/21 02:42 DC 01/16/21 02:45 Lorazepam (Ativan) 2 mg STAT STAT IV 01/16/21 02:58 01/16/21 02:59 DC 01/16/21 03:09 Lorazepam (Ativan) 2 mg STAT STAT IV 01/16/21 03:32 01/16/21 03:33 DC 01/16/21 03:47 Magnesium Hydroxide (Milk Of Magnesia) 30 ml DAILYPRN PRN PO CONSTIPATION 01/16/21 14:55 Nicotine (Nicoderm Cq 21mg) 1 patch DAILY TD 01/17/21 09:00 Olanzapine (ZyPREXA) 10 mg Q6HP PRN PO ANXIETY/AGITATION 01/16/21 14:55 Trazodone HCl (Desyrel) 150 mg QHS PO 01/16/21 21:00 Scheduled Alogliptin Veto/Metformin HCl (Alogliptin-Metformin 12.5-1000) 1 Each Tablet, 1 TAB PO BID, (Reported) Glipizide (Glipizide ER) 10 Mg Tab.er.24, 10 MG PO DAILY, (Reported) Lisinopril (Lisinopril) 20 Mg Tablet, 20 MG PO DAILY, (Reported) Paliperidone Palmitate (Invega Sustenna) 234 Mg/1.5 Ml Syringe, 234 MG IM QMONTH, (Reported) VERIFIED WITH [facility], NEXT DOSE DUE 01/25 Trazodone HCl (Trazodone HCl) 150 Mg Tablet, 150 MG PO QHS, (Reported) Allergies Coded Allergies: chlorpromazine (Verified Allergy, Unknown, 10/22/20) haloperidol (Verified Adverse Reaction, Unknown, unknown, 07/27/20) Per brother, there was a reaction in the past the [facility]. He was unable to describe the reaction. DEMETRIUS VIEIRA MD Jan 16, 2021 16:16
[2021-01-16] MEDS: HumaLOG INSULIN (NovoLOG) PER UNIT SC SCH ×2 (16:55→20:54)
[2021-01-16] MEDS: traZODone 50 MG TAB PO SCH (21:49)
[2021-01-17] MEDS: HumaLOG INSULIN (NovoLOG) PER UNIT SC SCH ×4 (07:03→20:55)
[2021-01-17] MEDS: NICOTINE 21MG/24HR 1 EA TRANSDERMAL TD SCH (09:00)
[2021-01-17] MEDS: glipiZIDE XL 5 MG TABCR PO SCH (09:00)
[2021-01-17] MEDS: QUEtiapine FUMARATE 100 MG TAB PO SCH ×2 (12:54→20:51)
--- NOTE | 2021-01-17 15:31 | MHHPE ---
[facility] HISTORY AND PHYSICAL DATE OF ADMISSION: 01/16/2021 IDENTIFYING DATA: He is a 56-year-old male, homeless, unemployed, supported by social security disability, who was admitted because of bizarre behavior. CHIEF COMPLAINT: "I was acting bizarre." HISTORY OF PRESENT ILLNESS: Patient was brought to [facility] by emergency medical services (EMS), as patient was acting bizarre, making statements that he was in [employer], he was fighting a war to save Emily. Then patient started wandering around in traffic, and he was brought to the hospital. Patient has a long history of mental illness. He has been diagnosed with schizoaffective disorder, bipolar type. He has a history of multiple psychiatric hospitalizations and long history of substance abuse dependence. Patient was in the emergency room (ER) hallucinating. Was very delusional, noncompliant, and disorganized, not directable, and he was medicated with Haldol. Patient on the unit is very disorganized, sleeping, partially cooperative, drowsy. Reported that he was noncompliant with his medications for four days. Patient received his Invega Sustenna, and he is due for the next injection on January 25. He is also on Seroquel 600 mg at night, which he has been noncompliant with. He is also noncompliant with his diabetic medications. Currently he is homeless. Patient was positive for cannabis, cocaine, and methamphetamine. PAST PSYCHIATRIC HISTORY: He had multiple psychiatric hospitalizations. He was on several medications and there is a history of noncompliance. His last admission in the [facility] was in September with similar complaints. SUICIDAL HISTORY: Denies any suicide attempts; however, patient has a violent history. He has been angry, aggressive toward others, and he was in long term in the past. DRUG/ALCOHOL HISTORY: Patient has a history of polysubstance dependence. The last use was yesterday. MEDICAL HISTORY: Patient has history of diabetes mellitus. He has history of chronic obstructive pulmonary disease (COPD), hypertension. There is no history of head injury. SURGERIES: Patient had recent amputation of his toes from diabetic complications. FAMILY HISTORY: Psychiatric disorder in the family. ADDICTION HISTORY: Polysubstance dependence. SOCIAL HISTORY: Patient was not cooperative. Unable to evaluate. MENTAL STATUS EXAMINATION: He is morbidly obese, uncooperative, lying in his bed, muttering some words. Eye contact is poor. Activity is agitated. Behavior: Uncooperative. Speech slow. Mood is irritable. Affect is inappropriate and hostile. Thought process: Unable to evaluation. Thought content: Delusions and hallucinations. His insight and judgment are impaired. Memory immediate, remote, recent are good. DIAGNOSES: 1. Schizoaffective disorder, bipolar type. 2. Polysubstance use disorder. 3. Atrial fibrillation/CHADS-VASc. No history of atrial fibrillation. There is no current oral anticoagulant therapy. His vital signs: Temperature 96.5, pulse is 99, blood pressure 141/84, respiratory rate is 18, pulse oximetry 100. LABORATORY DATA: Hematology within normal limits. Chemistry: His GFR was 2; it came down to 1.4. Fasting glucose is 93. His total creatine kinase is 584 because of agitation and aggressive nature of his behavior and was given intramuscular injection. His toxicology was positive for cannabis, cocaine, and amphetamine. TREATMENT RECOMMENDATIONS: Patient is admitted to inpatient mental health unit (IMHU). Patient will be followed by teachers' assistant for medical needs. Patient will be seen by physical therapy (PT), occupational therapy (OT), social work program coordinator, and case management. Patient will be placed on suicide precautions, fall precaution, and 15-minute checks. Patient will participate in all activities, individual, group, and milieu therapy. Plan is to add Seroquel 600 mg at night. ESTIMATED LENGTH OF STAY: 4-5 days. TIME SPENT: 45 minutes.
--- NOTE | 2021-01-17 17:07 | HPEPDOC ---
General Date of Admission Jan 16, 2021 at 14:51 Date of Service: Jan 17, 2021 Chief Complaint The patient is a 56-year-old male admitted with a reason for visit of Unspecified Psychotic Do. Source: Family, RN/MD History of Present Illness 56 year old male with schizophrenia , schizoaffective disorder, poly substance abuse, substance use psychotic disorder, DM, HTN , COPD, was brought in by police for acute psychosis. His Utox was positive for marijuana, amphetamine, cocaine. He was also found to have CRISTAL with creatinine of 2.0 and hypokalemia. He got IVF in the ED with improvement of creatinine ot 1.4 and was admitted to [facility]. He is being examined rios today for medical history and physical. Patient was examined in his room as he did not want to get out of his bed. He agreed to a physical exam. He denied any medical problems at this time. As per nurses he has been sleeping most of the day Home Medications Scheduled Alogliptin Veto/Metformin HCl (Alogliptin-Metformin 12.5-1000) 1 Each Tablet, 1 TAB PO BID, (Reported) Glipizide (Glipizide ER) 10 Mg Tab.er.24, 10 MG PO DAILY, (Reported) Lisinopril (Lisinopril) 20 Mg Tablet, 20 MG PO DAILY, (Reported) Paliperidone Palmitate (Invega Sustenna) 234 Mg/1.5 Ml Syringe, 234 MG IM QMONTH, (Reported) VERIFIED WITH [facility] [place], NEXT DOSE DUE 01/25 Trazodone HCl (Trazodone HCl) 150 Mg Tablet, 150 MG PO QHS, (Reported) Allergies Coded Allergies: chlorpromazine (Verified Allergy, Unknown, 10/22/20) haloperidol (Verified Adverse Reaction, Unknown, unknown, 07/27/20) Per brother, there was a reaction in the past the group home. He was unable to describe the reaction. 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 Dyspnea, Lt Headedness Gastrointestinal: Denies: Nausea, Vomiting, Abdominal Pain, Diarrhea Genitourinary: Denies: Dysuria, Frequency, Incontinence, Retention Hematologic: Denies: Bruising, Bleeding Excessively Musculoskeletal: Denies: Neck Pain, Back Pain, Joint Pain, Muscle Pain, Spasms Neurological: Denies: Weakness, Numbness, Change in speech, Confusion Psych: Denies: Depression, Memory Issues Physical Examination General Exam: Positive: Alert, Cooperative, No Acute Distress, Other (Very unkempt and dirty) Eye Exam: Positive: PERRLA, Conjunctiva & lids normal, EOMI; Negative: Sclera icteric ENT Exam: Positive: Atraumatic, Mucous membr. moist/pink, Pharynx Normal Chest Exam: Positive: Clear to auscultation, Normal air movement Heart Exam: Positive: Rate Normal, Regular Rhythm, Normal S1, Normal S2; Negative: Murmurs, Rubs Abdomen Exam: Positive: Normal bowel sounds, Soft; Negative: Tenderness Extremity Exam: Negative: Clubbing, Cyanosis, Edema Neuro Exam: Positive: Normal Speech, Strength at 5/5 X4 ext, Normal Tone Vital Signs Vital Signs Date Time Temp Pulse Resp B/P (MAP) Pulse Ox O2 Delivery O2 Flow Rate FiO2 01/17/21 10:56 157/107 01/16/21 15:41 96.5 99 18 100 01/16/21 14:45 Room Air Laboratory Data Labs 24H Laboratory Tests 2 01/16/21 20:50: Bedside Glucose (Misc Panel) 184H 01/17/21 06:27: Bedside Glucose (Misc Panel) 127H Assessment/Plan 56 year old male with schizophrenia , schizoaffective disorder, poly substance abuse, substance use psychotic disorder, DM, HTN , COPD, was brought in by police for acute psychosis. His Utox was positive for marijuana, amphetamine, cocaine. He was also found to have CRISTAL with creatinine of 2.0 and hypokalemia. He got IVF in the ED with improvement of creatinine ot 1.4 and was admitted to [facility]. He is being examined rios today for medical history and physical. Schizophrenia/schizoaffective disorder/polysubstance use psychosis As per psychiatry CRISTAL Likely due to poor oral intake under the effect of drugs and uncontrolled psychiatric issue Received 1 L of IV fluid in the ED Creatinine is better Will recheck Hypokalemia Will recheck before a supplement Diabetes Sugars controlled Continue Glucotrol and lispro as per sliding scale Hypertension Continue lisinopril, if creatinine is worse with we will discontinue COPD No shortness of breath, no signs of exacerbation Plan / VTE VTE Prophylaxis Ordered?: No (Fully ambulatory) Rosemarie Marie MD Jan 17, 2021 12:15
[2021-01-17 17:11] VITALS: BP 140/82
[2021-01-17] MEDS: traZODone 50 MG TAB PO SCH (20:51)
[2021-01-18 05:32] VITALS: BP 134/85
[2021-01-18] MEDS: HumaLOG INSULIN (NovoLOG) PER UNIT SC SCH ×4 (07:01→21:00)
[2021-01-18 08:35] LABS: BLOOD UREA NITROGEN 10 MG/DL (7-18); CALCIUM LEVEL 8.6 MG/DL (8.5-10.1); CARBON DIOXIDE LEVEL 30 MEQ/L (21-32); CHLORIDE LEVEL 108 MEQ/L (98-107); CREATININE FOR GFR 1.01 MG/DL (0.70-1.30); GLOMERULAR FILTRATION RATE > 60.0 (>56); GLUCOSE, FASTING 112 MG/DL (70-100); POTASSIUM SERUM 3.6 MEQ/L (3.5-5.1); SODIUM LEVEL 142 MEQ/L (136-145)
[2021-01-18] MEDS: NICOTINE 21MG/24HR 1 EA TRANSDERMAL TD SCH (09:00)
[2021-01-18 09:35] LABS: HEMOGLOBIN A1c 7.2 %
[2021-01-18] MEDS: glipiZIDE XL 5 MG TABCR PO SCH (09:55)
[2021-01-18] MEDS: QUEtiapine FUMARATE 100 MG TAB PO SCH ×2 (09:56→21:01)
--- NOTE | 2021-01-18 17:40 | MHIPN ---
[facility] PROGRESS NOTE DATE: 01/18/2021 SUBJECTIVE: Patient speaks in monosyllabic words. Somewhat indifferent in his answers. "I'm fine", most answers are "yes" or "no". Patient is disheveled. OBJECTIVE: He is a 56-year-old male, homeless, unemployed, supported by social security, who was admitted because of bizarre behavior. He reported that he was wandering in the streets, saying that he is in [employer], fighting a war to save Emily. Patient has a long history of mental illness with history of schizoaffective disorder. Patient was medicated with Haldol, as he was hallucinating. Patient did not attend any groups. He mostly lies in his bed. VITAL SIGNS: Temperature 97.7, pulse 86, respiratory rate 20, blood pressure 134/85, pulse oximetry 98. DIAGNOSES: 1. Schizoaffective disorder, bipolar type. 2. Polysubstance use disorder. REVIEW OF SYSTEMS: Denied any chest pain, palpitations. Denied any cough or shortness of breath. He denied any dizziness or numbness. CURRENT MEDICATIONS: - quetiapine 300 mg twice a day - trazodone 150 mg at night - Patient is on insulin for his diabetes and lisinopril for his high blood pressure. PLAN: Continue current medications. Consider adding an antidepressant if patient continues to be withdrawn. ESTIMATED LENGTH OF STAY: 4-5 days. TIME SPENT: 25 minutes. [facility]
[2021-01-18 18:14] VITALS: BP 141/77
[2021-01-18] MEDS: traZODone 50 MG TAB PO SCH (21:01)
[2021-01-19] MEDS: HumaLOG INSULIN (NovoLOG) PER UNIT SC SCH ×4 (05:58→21:00)
[2021-01-19 06:32] VITALS: BP 137/89
[2021-01-19] MEDS: NICOTINE 21MG/24HR 1 EA TRANSDERMAL TD SCH (09:00)
[2021-01-19] MEDS: glipiZIDE XL 5 MG TABCR PO SCH (09:10)
[2021-01-19] MEDS: QUEtiapine FUMARATE 100 MG TAB PO SCH ×2 (09:10→21:30)
--- NOTE | 2021-01-19 14:28 | MHIPNPDOC ---
[facility] Progress Note Progress Note DATE OF SERVICE: 01/19/21 SUBJECTIVE: Patient most of the time seen in the bed, however at times he is ambulatory seen walking around, He is indirect to questions, reports he is not depressed he is not suicidal and he is taking his medications. OBJECTIVE: He is a 56-year-old male, homeless, unemployed, supported by social security, who was admitted because of bizarre behavior. He reported that he was wandering in the streets, saying that he is in [employer], fighting a war to save Emily. Patient has a long history of mental illness with history of schizoaffective disorder. Patient was medicated with Haldol, as he was hallucinating. Patient did not attend any groups. He mostly lies in his bed. Patient is improving but seems to be preoccupied. DIAGNOSES: 1. Schizoaffective disorder, bipolar type. 2. Polysubstance use disorder. REVIEW OF SYSTEMS: Denied any chest pain, palpitations. Denied any cough or shortness of breath. He denied any dizziness or numbness. CURRENT MEDICATIONS: - quetiapine 300 mg twice a day - trazodone 150 mg at night - Patient is on insulin for his diabetes and lisinopril for his high blood pressure. PLAN: Continue current medications. Consider adding an antidepressant if patient continues to be withdrawn but improving. ESTIMATED LENGTH OF STAY: 4-5 days. TIME SPENT: 25 minutes. Vital Signs Vital Signs Date Time Temp Pulse Resp B/P (MAP) Pulse Ox O2 Delivery O2 Flow Rate FiO2 01/19/21 09:10 137/89 01/19/21 06:32 97.0 83 14 99 Room Air Laboratory Data 24H Labs Laboratory Tests 2 01/18/21 16:23: Bedside Glucose (Misc Panel) 100 01/18/21 21:04: Bedside Glucose (Misc Panel) 110H 01/19/21 05:56: Bedside Glucose (Misc Panel) 100 01/19/21 11:43: Bedside Glucose (Misc Panel) 112H Current Medications Current Medications Medications (Trade) Dose Ordered Sig/Preston Route PRN Reason Start Time Stop Time Status Last Admin Dose Admin Acetaminophen (Tylenol Tab) 650 mg Q6HP PRN PO HEADACHE or MILD DISCOMFORT 01/16/21 14:55 Al Hydrox/Mg Hydrox/Simethicone (Mylanta) 30 ml Q4HP PRN PO HEARTBURN/INDIGESTION 01/16/21 14:55 Dextrose (Dextrose 50%) 25 ml ASDIRECTED PRN IV SEE LABEL COMMENTS 01/16/21 14:55 Diphenhydramine HCl (Benadryl) 50 mg Q6HP PRN PO ANXIETY/AGITATION 01/16/21 14:55 Glipizide (Glucotrol Xl) 10 mg DAILY PO 01/17/21 09:00 01/19/21 09:10 Glucagon (Glucagon) 1 mg ASDIRECTED PRN SC SEE LABEL COMMENTS 01/16/21 14:55 Glucose (Glucose) 16 GM ASDIRECTED PRN PO SEE LABEL COMMENTS 01/16/21 14:55 Home Med (Home Med List Complete!) ASDIRECTED XX 01/16/21 14:20 01/16/21 14:33 DC Insulin Human Lispro (HumaLOG INSULIN) See Protocol Table AC SC 01/16/21 17:30 01/18/21 07:01 Insulin Human Lispro (HumaLOG INSULIN) See Protocol Table QHS SC 01/16/21 21:00 Lisinopril (Prinivil) 20 mg DAILY PO 01/17/21 09:00 01/19/21 09:10 Lorazepam (Ativan) 1 mg STAT STAT PO 01/16/21 08:38 01/16/21 08:40 DC 01/16/21 08:48 Lorazepam (Ativan) 2 mg Q6HP PRN PO ANXIETY/AGITATION 01/16/21 14:55 Lorazepam (Ativan) 2 mg STAT STAT IV 01/16/21 02:41 01/16/21 02:42 DC 01/16/21 02:45 Lorazepam (Ativan) 2 mg STAT STAT IV 01/16/21 02:58 01/16/21 02:59 DC 01/16/21 03:09 Lorazepam (Ativan) 2 mg STAT STAT IV 01/16/21 03:32 01/16/21 03:33 DC 01/16/21 03:47 Magnesium Hydroxide (Milk Of Magnesia) 30 ml DAILYPRN PRN PO CONSTIPATION 01/16/21 14:55 Nicotine (Nicoderm Cq 21mg) 1 patch DAILY TD 01/17/21 09:00 01/17/21 09:00 Olanzapine (ZyPREXA) 10 mg Q6HP PRN PO ANXIETY/AGITATION 01/16/21 14:55 Quetiapine Fumarate (SEROquel) 300 mg BID PO 01/17/21 09:00 01/19/21 09:10 Trazodone HCl (Desyrel) 150 mg QHS PO 01/16/21 21:00 01/18/21 21:01 Allergies Coded Allergies: chlorpromazine (Verified Allergy, Unknown, 10/22/20) haloperidol (Verified Adverse Reaction, Unknown, unknown, 07/27/20) Per brother, there was a reaction in the past the [facility]. He was unable to describe the reaction. PROSPER BOYKIN MD Jan 19, 2021 14:28
[2021-01-19 16:16] VITALS: BP 139/86
[2021-01-19] MEDS: traZODone 50 MG TAB PO SCH (21:30)
[2021-01-20] MEDS: HumaLOG INSULIN (NovoLOG) PER UNIT SC SCH ×4 (06:12→21:00)
[2021-01-20 06:39] VITALS: BP_SYST 115; BP_SYST 155; BP_DIAS 85
[2021-01-20] MEDS: NICOTINE 21MG/24HR 1 EA TRANSDERMAL TD SCH (08:19)
[2021-01-20] MEDS: QUEtiapine FUMARATE 100 MG TAB PO SCH ×2 (09:18→21:29)
[2021-01-20] MEDS: glipiZIDE XL 5 MG TABCR PO SCH (09:19)
[2021-01-20 18:59] VITALS: BP 141/72
[2021-01-20] MEDS: traZODone 50 MG TAB PO SCH (21:29)
[2021-01-21 06:10] VITALS: BP 131/90
[2021-01-21] MEDS: HumaLOG INSULIN (NovoLOG) PER UNIT SC SCH ×4 (06:30→21:00)
[2021-01-21] MEDS: NICOTINE 21MG/24HR 1 EA TRANSDERMAL TD SCH (09:00)
[2021-01-21] MEDS: glipiZIDE XL 5 MG TABCR PO SCH (09:11)
[2021-01-21] MEDS: QUEtiapine FUMARATE 100 MG TAB PO SCH ×2 (09:11→21:23)
--- NOTE | 2021-01-21 13:20 | MHIPNPDOC ---
[facility] Progress Note Progress Note DATE OF SERVICE: 01/21/21 SUBJECTIVE: Patient most of the time seen in the bed, however at times he is ambulatory seen walking around, Reports he is depressed and needs antidepressants. And expressed his desire to go to inpatient rehab. OBJECTIVE: He is a 56-year-old male, homeless, unemployed, supported by social security, who was admitted because of bizarre behavior. He reported that he was wandering in the streets, saying that he is in [employer], fighting a war to save [place]. Patient has a long history of mental illness with history of schizoaffective disorder. Patient was medicated with Haldol, as he was hallucinating. Patient did not attend any groups. He mostly lies in his bed. Patient is improving but seems to be preoccupied. Patient somewhat depressed and isolative, but today he spoke to me at length told me that he wants to go to a rehab to treat his Drug dependence and was willing to take an antidepressant to help with his depression. DIAGNOSES: 1. Schizoaffective disorder, bipolar type. 2. Polysubstance use disorder. REVIEW OF SYSTEMS: Denied any chest pain, palpitations. Denied any cough or shortness of breath. He denied any dizziness or numbness. CURRENT MEDICATIONS: - quetiapine 300 mg twice a day - trazodone 150 mg at night - Patient is on insulin for his diabetes and lisinopril for his high blood pressure. PLAN: Continue current medications. Add Lexapro 10 mg in the a.m. We will also look for Possible disposition to inpatient rehab. ESTIMATED LENGTH OF STAY: 4-5 days. TIME SPENT: 25 minutes. Vital Signs Vital Signs Date Time Temp Pulse Resp B/P (MAP) Pulse Ox O2 Delivery O2 Flow Rate FiO2 01/21/21 09:11 134/91 01/21/21 06:10 97.6 70 18 96 Room Air Laboratory Data 24H Labs Laboratory Tests 2 01/20/21 17:10: Bedside Glucose (Misc Panel) 82 01/20/21 21:27: Bedside Glucose (Misc Panel) 96 01/21/21 06:29: Bedside Glucose (Misc Panel) 81 01/21/21 11:56: Bedside Glucose (Misc Panel) 92 Current Medications Current Medications Medications (Trade) Dose Ordered Sig/Preston Route PRN Reason Start Time Stop Time Status Last Admin Dose Admin Acetaminophen (Tylenol Tab) 650 mg Q6HP PRN PO HEADACHE or MILD DISCOMFORT 01/16/21 14:55 Al Hydrox/Mg Hydrox/Simethicone (Mylanta) 30 ml Q4HP PRN PO HEARTBURN/INDIGESTION 01/16/21 14:55 Dextrose (Dextrose 50%) 25 ml ASDIRECTED PRN IV SEE LABEL COMMENTS 01/16/21 14:55 Diphenhydramine HCl (Benadryl) 50 mg Q6HP PRN PO ANXIETY/AGITATION 01/16/21 14:55 Glipizide (Glucotrol Xl) 10 mg DAILY PO 01/17/21 09:00 01/21/21 09:11 Glucagon (Glucagon) 1 mg ASDIRECTED PRN SC SEE LABEL COMMENTS 01/16/21 14:55 Glucose (Glucose) 16 GM ASDIRECTED PRN PO SEE LABEL COMMENTS 01/16/21 14:55 Home Med (Home Med List Complete!) ASDIRECTED XX 01/16/21 14:20 01/16/21 14:33 DC Insulin Human Lispro (HumaLOG INSULIN) See Protocol Table AC SC 01/16/21 17:30 01/18/21 07:01 Insulin Human Lispro (HumaLOG INSULIN) See Protocol Table QHS SC 01/16/21 21:00 Lisinopril (Prinivil) 20 mg DAILY PO 01/17/21 09:00 01/21/21 09:11 Lorazepam (Ativan) 1 mg STAT STAT PO 01/16/21 08:38 01/16/21 08:40 DC 01/16/21 08:48 Lorazepam (Ativan) 2 mg Q6HP PRN PO ANXIETY/AGITATION 01/16/21 14:55 Lorazepam (Ativan) 2 mg STAT STAT IV 01/16/21 02:41 01/16/21 02:42 DC 01/16/21 02:45 Lorazepam (Ativan) 2 mg STAT STAT IV 01/16/21 02:58 01/16/21 02:59 DC 01/16/21 03:09 Lorazepam (Ativan) 2 mg STAT STAT IV 01/16/21 03:32 01/16/21 03:33 DC 01/16/21 03:47 Magnesium Hydroxide (Milk Of Magnesia) 30 ml DAILYPRN PRN PO CONSTIPATION 01/16/21 14:55 Nicotine (Nicoderm Cq 21mg) 1 patch DAILY TD 01/17/21 09:00 01/17/21 09:00 Olanzapine (ZyPREXA) 10 mg Q6HP PRN PO ANXIETY/AGITATION 01/16/21 14:55 Quetiapine Fumarate (SEROquel) 300 mg BID PO 01/17/21 09:00 01/21/21 09:11 Trazodone HCl (Desyrel) 150 mg QHS PO 01/16/21 21:00 01/20/21 21:29 Allergies Coded Allergies: chlorpromazine (Verified Allergy, Unknown, 10/22/20) haloperidol (Verified Adverse Reaction, Unknown, unknown, 07/27/20) Per brother, there was a reaction in the past the group home. He was unable to describe the reaction. PROSPER BOYKIN MD Jan 21, 2021 13:20
[2021-01-21 16:26] VITALS: BP 126/62
[2021-01-21] MEDS: traZODone 50 MG TAB PO SCH (21:22)
[2021-01-22 05:45] VITALS: BP 156/89
[2021-01-22] MEDS: HumaLOG INSULIN (NovoLOG) PER UNIT SC SCH ×4 (06:30→20:02)
[2021-01-22] MEDS: NICOTINE 21MG/24HR 1 EA TRANSDERMAL TD SCH (09:00)
[2021-01-22] MEDS: glipiZIDE XL 5 MG TABCR PO SCH (09:45)
[2021-01-22] MEDS: ESCITALOPRAM OXALATE 10 MG TAB (LEXAPRO) PO SCH (09:46)
[2021-01-22] MEDS: QUEtiapine FUMARATE 100 MG TAB PO SCH ×2 (09:46→20:00)
--- NOTE | 2021-01-22 13:42 | MHIPNPDOC ---
[facility] Progress Note Progress Note DATE OF SERVICE: 01/22/21 SUBJECTIVE: Patient most of the time seen in the bed, however at times he is ambulatory seen walking around, Reports he is depressed and needs antidepressants. And expressed his desire to go to inpatient rehab. Patient reports that he has always some hallucinations which does not go away but it does not bother him he thinks That it is because of his continuous drug use. OBJECTIVE: He is a 56-year-old male, homeless, unemployed, supported by social security, who was admitted because of bizarre behavior. He reported that he was wandering in the streets, saying that he is in [employer], fighting a war to save [employer]. Patient has a long history of mental illness with history of schizoaffective disorder. Patient was medicated with Haldol, as he was hallucinating. Patient did not attend any groups. He mostly lies in his bed. Patient is improving but seems to be preoccupied. Patient somewhat depressed and isolative, but today he spoke to me at length told me that he wants to go to a rehab to treat his Drug dependence and was willing to take an antidepressant to help with his depression. DIAGNOSES: 1. Schizoaffective disorder, bipolar type. 2. Polysubstance use disorder. REVIEW OF SYSTEMS: Denied any chest pain, palpitations. Denied any cough or shortness of breath. He denied any dizziness or numbness. CURRENT MEDICATIONS: - quetiapine 300 mg twice a day - trazodone 150 mg at night - Patient is on insulin for his diabetes and lisinopril for his high blood pressure. PLAN: Continue current medications. Add Lexapro 10 mg in the a.m. We will also look for Possible disposition to inpatient rehab. pull worker will provide him with the telephone numbers so that the patient can call himself the rehabs, Also will be helped during the process. ESTIMATED LENGTH OF STAY: 4-5 days. TIME SPENT: 25 minutes. Vital Signs Vital Signs Date Time Temp Pulse Resp B/P (MAP) Pulse Ox O2 Delivery O2 Flow Rate FiO2 01/22/21 09:54 138/72 01/22/21 05:45 98.8 72 18 96 Room Air Laboratory Data 24H Labs Laboratory Tests 2 01/21/21 16:58: Bedside Glucose (Misc Panel) 93 01/21/21 21:21: Bedside Glucose (Misc Panel) 238H 01/22/21 06:26: Bedside Glucose (Misc Panel) 96 01/22/21 11:54: Bedside Glucose (Misc Panel) 99 Current Medications Current Medications Medications (Trade) Dose Ordered Sig/Preston Route PRN Reason Start Time Stop Time Status Last Admin Dose Admin Acetaminophen (Tylenol Tab) 650 mg Q6HP PRN PO HEADACHE or MILD DISCOMFORT 01/16/21 14:55 Al Hydrox/Mg Hydrox/Simethicone (Mylanta) 30 ml Q4HP PRN PO HEARTBURN/INDIGESTION 01/16/21 14:55 Dextrose (Dextrose 50%) 25 ml ASDIRECTED PRN IV SEE LABEL COMMENTS 01/16/21 14:55 Diphenhydramine HCl (Benadryl) 50 mg Q6HP PRN PO ANXIETY/AGITATION 01/16/21 14:55 Escitalopram Oxalate (Lexapro) 10 mg DAILY PO 01/22/21 09:00 01/22/21 09:46 Glipizide (Glucotrol Xl) 10 mg DAILY PO 01/17/21 09:00 01/22/21 09:45 Glucagon (Glucagon) 1 mg ASDIRECTED PRN SC SEE LABEL COMMENTS 01/16/21 14:55 Glucose (Glucose) 16 GM ASDIRECTED PRN PO SEE LABEL COMMENTS 01/16/21 14:55 Home Med (Home Med List Complete!) ASDIRECTED XX 01/16/21 14:20 01/16/21 14:33 DC Insulin Human Lispro (HumaLOG INSULIN) See Protocol Table AC SC 01/16/21 17:30 01/18/21 07:01 Insulin Human Lispro (HumaLOG INSULIN) See Protocol Table QHS SC 01/16/21 21:00 Lisinopril (Prinivil) 20 mg DAILY PO 01/17/21 09:00 01/22/21 09:54 Lorazepam (Ativan) 1 mg STAT STAT PO 01/16/21 08:38 01/16/21 08:40 DC 01/16/21 08:48 Lorazepam (Ativan) 2 mg Q6HP PRN PO ANXIETY/AGITATION 01/16/21 14:55 01/22/21 12:59 DC Lorazepam (Ativan) 2 mg STAT STAT IV 01/16/21 02:41 01/16/21 02:42 DC 01/16/21 02:45 Lorazepam (Ativan) 2 mg STAT STAT IV 01/16/21 02:58 01/16/21 02:59 DC 01/16/21 03:09 Lorazepam (Ativan) 2 mg STAT STAT IV 01/16/21 03:32 01/16/21 03:33 DC 01/16/21 03:47 Magnesium Hydroxide (Milk Of Magnesia) 30 ml DAILYPRN PRN PO CONSTIPATION 01/16/21 14:55 Miscellaneous (Unresolved Clarification Entry) SEE LABEL COMMENTS DAILY XX 01/21/21 09:00 Nicotine (Nicoderm Cq 21mg) 1 patch DAILY TD 01/17/21 09:00 01/17/21 09:00 Olanzapine (ZyPREXA) 10 mg Q6HP PRN PO ANXIETY/AGITATION 01/16/21 14:55 Quetiapine Fumarate (SEROquel) 300 mg BID PO 01/17/21 09:00 01/22/21 09:46 Trazodone HCl (Desyrel) 150 mg QHS PO 01/16/21 21:00 01/21/21 21:22 Allergies Coded Allergies: chlorpromazine (Verified Allergy, Unknown, 10/22/20) haloperidol (Verified Adverse Reaction, Unknown, unknown, 07/27/20) Per brother, there was a reaction in the past the prison. He was unable to describe the reaction. PROSPER BOYKIN MD Jan 22, 2021 13:42
[2021-01-22 18:53] VITALS: BP 140/67
[2021-01-22] MEDS: traZODone 50 MG TAB PO SCH (20:00)
[2021-01-23 06:03] VITALS: BP 127/78
[2021-01-23] MEDS: HumaLOG INSULIN (NovoLOG) PER UNIT SC SCH ×4 (06:33→20:57)
[2021-01-23] MEDS: QUEtiapine FUMARATE 100 MG TAB PO SCH ×2 (09:11→20:57)
[2021-01-23] MEDS: NICOTINE 21MG/24HR 1 EA TRANSDERMAL TD SCH (09:11)
[2021-01-23] MEDS: glipiZIDE XL 5 MG TABCR PO SCH (09:12)
[2021-01-23] MEDS: ESCITALOPRAM OXALATE 10 MG TAB (LEXAPRO) PO SCH (09:12)
--- NOTE | 2021-01-23 14:44 | MHIPNPDOC ---
[facility] Progress Note Progress Note DATE OF SERVICE: 01/23/21 SUBJECTIVE: Patient stays in bed most of the time, And expressed his desire to go to inpatient rehab. Patient reports that he has always some hallucinations which does not go away but it does not bother him he thinks That it is because of his continuous drug use. OBJECTIVE: He is a 56-year-old male, homeless, unemployed, supported by social security, who was admitted because of bizarre behavior. He reported that he was wandering in the streets, saying that he is in [employer], fighting a war to save [place]. Patient has a long history of mental illness with history of schizoaffective disorder. Patient was medicated with Haldol, as he was hallucinating. Patient did not attend any groups. He mostly lies in his bed. Patient is improving but seems to be preoccupied. Patient somewhat depressed and isolative, but today he spoke to me at length told me that he wants to go to a rehab to treat his Drug dependence and was willing to take an antidepressant to help with his depression. Patient trying on his own to call the rehabs, he will get assistance from the social media intern also. DIAGNOSES: 1. Schizoaffective disorder, bipolar type. 2. Polysubstance use disorder. REVIEW OF SYSTEMS: Denied any chest pain, palpitations. Denied any cough or shortness of breath. He denied any dizziness or numbness. CURRENT MEDICATIONS: - quetiapine 300 mg twice a day - trazodone 150 mg at night - Patient is on insulin for his diabetes and lisinopril for his high blood pressure. PLAN: Continue current medications. Add Lexapro 10 mg in the a.m. We will also look for Possible disposition to inpatient rehab. addiction social worker will provide him with the telephone numbers so that the patient can call himself the rehabs, Also will be helped during the process. ESTIMATED LENGTH OF STAY: 4-5 days. TIME SPENT: 25 minutes. Vital Signs Vital Signs Date Time Temp Pulse Resp B/P (MAP) Pulse Ox O2 Delivery O2 Flow Rate FiO2 01/23/21 09:15 130/78 01/23/21 08:10 Room Air 01/23/21 06:03 98.3 76 20 100 Laboratory Data 24H Labs Laboratory Tests 2 01/22/21 16:50: Bedside Glucose (Misc Panel) 112H 01/22/21 19:56: Bedside Glucose (Misc Panel) 152H 01/23/21 06:25: Bedside Glucose (Misc Panel) 74 01/23/21 12:13: Bedside Glucose (Misc Panel) 180H Current Medications Current Medications Medications (Trade) Dose Ordered Sig/Preston Route PRN Reason Start Time Stop Time Status Last Admin Dose Admin Acetaminophen (Tylenol Tab) 650 mg Q6HP PRN PO HEADACHE or MILD DISCOMFORT 01/16/21 14:55 Al Hydrox/Mg Hydrox/Simethicone (Mylanta) 30 ml Q4HP PRN PO HEARTBURN/INDIGESTION 01/16/21 14:55 Dextrose (Dextrose 50%) 25 ml ASDIRECTED PRN IV SEE LABEL COMMENTS 01/16/21 14:55 Diphenhydramine HCl (Benadryl) 50 mg Q6HP PRN PO ANXIETY/AGITATION 01/16/21 14:55 Escitalopram Oxalate (Lexapro) 10 mg DAILY PO 01/22/21 09:00 01/23/21 09:12 Glipizide (Glucotrol Xl) 10 mg DAILY PO 01/17/21 09:00 01/23/21 09:12 Glucagon (Glucagon) 1 mg ASDIRECTED PRN SC SEE LABEL COMMENTS 01/16/21 14:55 Glucose (Glucose) 16 GM ASDIRECTED PRN PO SEE LABEL COMMENTS 01/16/21 14:55 Home Med (Home Med List Complete!) ASDIRECTED XX 01/16/21 14:20 01/16/21 14:33 DC Insulin Human Lispro (HumaLOG INSULIN) See Protocol Table AC SC 01/16/21 17:30 01/23/21 12:17 Insulin Human Lispro (HumaLOG INSULIN) See Protocol Table QHS SC 01/16/21 21:00 Lisinopril (Prinivil) 20 mg DAILY PO 01/17/21 09:00 01/23/21 09:15 Lorazepam (Ativan) 1 mg STAT STAT PO 01/16/21 08:38 01/16/21 08:40 DC 01/16/21 08:48 Lorazepam (Ativan) 2 mg Q6HP PRN PO ANXIETY/AGITATION 01/16/21 14:55 01/22/21 12:59 DC Lorazepam (Ativan) 2 mg STAT STAT IV 01/16/21 02:41 01/16/21 02:42 DC 01/16/21 02:45 Lorazepam (Ativan) 2 mg STAT STAT IV 01/16/21 02:58 01/16/21 02:59 DC 01/16/21 03:09 Lorazepam (Ativan) 2 mg STAT STAT IV 01/16/21 03:32 01/16/21 03:33 DC 01/16/21 03:47 Magnesium Hydroxide (Milk Of Magnesia) 30 ml DAILYPRN PRN PO CONSTIPATION 01/16/21 14:55 Miscellaneous (Unresolved Clarification Entry) SEE LABEL COMMENTS DAILY XX 01/21/21 09:00 01/22/21 13:40 DC Nicotine (Nicoderm Cq 21mg) 1 patch DAILY TD 01/17/21 09:00 01/23/21 09:11 Olanzapine (ZyPREXA) 10 mg Q6HP PRN PO ANXIETY/AGITATION 01/16/21 14:55 Quetiapine Fumarate (SEROquel) 300 mg BID PO 01/17/21 09:00 01/23/21 09:11 Trazodone HCl (Desyrel) 150 mg QHS PO 01/16/21 21:00 01/22/21 20:00 Allergies Coded Allergies: chlorpromazine (Verified Allergy, Unknown, 10/22/20) haloperidol (Verified Adverse Reaction, Unknown, unknown, 07/27/20) Per brother, there was a reaction in the past the shelter. He was unable to describe the reaction. PROSPER BOYKIN MD Jan 23, 2021 14:44
[2021-01-23 16:05] VITALS: BP 118/65
[2021-01-23] MEDS: traZODone 50 MG TAB PO SCH (20:57)
[2021-01-24] MEDS: HumaLOG INSULIN (NovoLOG) PER UNIT SC SCH ×4 (06:08→20:45)
[2021-01-24 06:41] VITALS: BP 118/67
[2021-01-24] MEDS: NICOTINE 21MG/24HR 1 EA TRANSDERMAL TD SCH ×4 (09:00→10:43)
[2021-01-24] MEDS: glipiZIDE XL 5 MG TABCR PO SCH (10:07)
[2021-01-24] MEDS: ESCITALOPRAM OXALATE 10 MG TAB (LEXAPRO) PO SCH (10:07)
[2021-01-24] MEDS: QUEtiapine FUMARATE 100 MG TAB PO SCH ×2 (10:11→20:48)
--- NOTE | 2021-01-24 15:03 | MHIPNPDOC ---
[facility] Progress Note Progress Note DATE OF SERVICE: 01/24/21 SUBJECTIVE: Patient is actively participating in his discharge to a rehab, he is also being helped by the social service liaison Denies any mood swings denies any suicidal thoughts, denies any side effects of the medications however stays mostly in bed. OBJECTIVE: He is a 56-year-old male, homeless, unemployed, supported by social security, who was admitted because of bizarre behavior. He reported that he was wandering in the streets, saying that he is in [employer], fighting a war to save [place]. Patient has a long history of mental illness with history of schizoaffective disorder. Patient was medicated with Haldol, as he was hallucinating. Patient did not attend any groups. He mostly lies in his bed. Patient is improving but seems to be preoccupied. Patient somewhat depressed and isolative, but today he spoke to me at length told me that he wants to go to a rehab to treat his Drug dependence and was willing to take an antidepressant to help with his depression. Patient trying on his own to call the rehabs, he will get assistance from the social service liaison also. DIAGNOSES: 1. Schizoaffective disorder, bipolar type. 2. Polysubstance use disorder. REVIEW OF SYSTEMS: Denied any chest pain, palpitations. Denied any cough or shortness of breath. He denied any dizziness or numbness. CURRENT MEDICATIONS: - quetiapine 300 mg twice a day - trazodone 150 mg at night - Patient is on insulin for his diabetes and lisinopril for his high blood pressure. PLAN: Continue current medications. Add Lexapro 10 mg in the a.m. We will also look for Possible disposition to inpatient rehab. bible worker will provide him with the telephone numbers so that the patient can call himself the rehabs, Also will be helped during the process. ESTIMATED LENGTH OF STAY: 4-5 days. TIME SPENT: 25 minutes. Vital Signs Vital Signs Date Time Temp Pulse Resp B/P (MAP) Pulse Ox O2 Delivery O2 Flow Rate FiO2 01/24/21 10:10 132/64 01/24/21 08:09 Room Air 01/24/21 06:41 97.4 70 20 100 Laboratory Data 24H Labs Laboratory Tests 2 01/23/21 17:12: Bedside Glucose (Misc Panel) 152H 01/23/21 20:14: Bedside Glucose (Misc Panel) 97 01/24/21 06:06: Bedside Glucose (Misc Panel) 72 01/24/21 11:59: Bedside Glucose (Misc Panel) 222H Current Medications Current Medications Medications (Trade) Dose Ordered Sig/Preston Route PRN Reason Start Time Stop Time Status Last Admin Dose Admin Acetaminophen (Tylenol Tab) 650 mg Q6HP PRN PO HEADACHE or MILD DISCOMFORT 01/16/21 14:55 Al Hydrox/Mg Hydrox/Simethicone (Mylanta) 30 ml Q4HP PRN PO HEARTBURN/INDIGESTION 01/16/21 14:55 Dextrose (Dextrose 50%) 25 ml ASDIRECTED PRN IV SEE LABEL COMMENTS 01/16/21 14:55 Diphenhydramine HCl (Benadryl) 50 mg Q6HP PRN PO ANXIETY/AGITATION 01/16/21 14:55 Escitalopram Oxalate (Lexapro) 10 mg DAILY PO 01/22/21 09:00 01/24/21 10:07 Glipizide (Glucotrol Xl) 10 mg DAILY PO 01/17/21 09:00 01/24/21 10:07 Glucagon (Glucagon) 1 mg ASDIRECTED PRN SC SEE LABEL COMMENTS 01/16/21 14:55 Glucose (Glucose) 16 GM ASDIRECTED PRN PO SEE LABEL COMMENTS 01/16/21 14:55 Home Med (Home Med List Complete!) ASDIRECTED XX 01/16/21 14:20 01/16/21 14:33 DC Insulin Human Lispro (HumaLOG INSULIN) See Protocol Table AC SC 01/16/21 17:30 01/24/21 12:06 Insulin Human Lispro (HumaLOG INSULIN) See Protocol Table QHS SC 01/16/21 21:00 Lisinopril (Prinivil) 20 mg DAILY PO 01/17/21 09:00 01/24/21 10:10 Lorazepam (Ativan) 1 mg STAT STAT PO 01/16/21 08:38 01/16/21 08:40 DC 01/16/21 08:48 Lorazepam (Ativan) 2 mg Q6HP PRN PO ANXIETY/AGITATION 01/16/21 14:55 01/22/21 12:59 DC Lorazepam (Ativan) 2 mg STAT STAT IV 01/16/21 02:41 01/16/21 02:42 DC 01/16/21 02:45 Lorazepam (Ativan) 2 mg STAT STAT IV 01/16/21 02:58 01/16/21 02:59 DC 01/16/21 03:09 Lorazepam (Ativan) 2 mg STAT STAT IV 01/16/21 03:32 01/16/21 03:33 DC 01/16/21 03:47 Magnesium Hydroxide (Milk Of Magnesia) 30 ml DAILYPRN PRN PO CONSTIPATION 01/16/21 14:55 Miscellaneous (Unresolved Clarification Entry) SEE LABEL COMMENTS DAILY XX 01/21/21 09:00 01/22/21 13:40 DC Nicotine (Nicoderm Cq 21mg) 1 patch DAILY TD 01/17/21 09:00 01/23/21 09:11 Olanzapine (ZyPREXA) 10 mg Q6HP PRN PO ANXIETY/AGITATION 01/16/21 14:55 Quetiapine Fumarate (SEROquel) 300 mg BID PO 01/17/21 09:00 01/24/21 10:11 Trazodone HCl (Desyrel) 150 mg QHS PO 01/16/21 21:00 01/23/21 20:57 Allergies Coded Allergies: chlorpromazine (Verified Allergy, Unknown, 10/22/20) haloperidol (Verified Adverse Reaction, Unknown, unknown, 07/27/20) Per brother, there was a reaction in the past the correction. He was unable to describe the reaction. PROSPER BOYKIN MD Jan 24, 2021 15:03
[2021-01-24 18:03] VITALS: BP 142/73
[2021-01-24] MEDS: traZODone 50 MG TAB PO SCH (20:48)
[2021-01-25] MEDS: HumaLOG INSULIN (NovoLOG) PER UNIT SC SCH ×4 (07:19→21:00)
[2021-01-25 07:36] VITALS: BP 132/83
[2021-01-25] MEDS: NICOTINE 21MG/24HR 1 EA TRANSDERMAL TD SCH (09:00)
[2021-01-25] MEDS: glipiZIDE XL 5 MG TABCR PO SCH (09:25)
[2021-01-25] MEDS: QUEtiapine FUMARATE 100 MG TAB PO SCH ×2 (09:26→21:31)
[2021-01-25] MEDS: ESCITALOPRAM OXALATE 10 MG TAB (LEXAPRO) PO SCH (09:26)
[2021-01-25] MEDS ORDERED: PALIPERIDONE PALMITATE 234MG/1.5ML INJ (INVEGA)(FREE PSY INPT ONLY) IM ONE (12:00)
--- NOTE | 2021-01-25 14:15 | MHIPNPDOC ---
[facility] [place] Progress Note Progress Note DATE OF SERVICE: 01/25/21 SUBJECTIVE: Patient more ambulatory seen walking out of the room trying to help himself to get into rehab calling them on the phone. He still complains of some auditory hallucinations Which has been there for a long time, reports it does not bother him. Sleep and appetite are good. OBJECTIVE: He is a 56-year-old male, homeless, unemployed, supported by social security, who was admitted because of bizarre behavior. He reported that he was wandering in the streets, saying that he is in [employer], fighting a war to save [employer]. Patient has a long history of mental illness with history of schizoaffective disorder. Patient was medicated with Haldol, as he was hallucinating. Patient did not attend any groups. He mostly lies in his bed. Patient is improving but seems to be preoccupied. Patient somewhat depressed and isolative, but today he spoke to me at length told me that he wants to go to a rehab to treat his Drug dependence and was willing to take an antidepressant to help with his depression. Patient trying on his own to call the rehabs, he will get assistance from the social work professor also. DIAGNOSES: 1. Schizoaffective disorder, bipolar type. 2. Polysubstance use disorder. REVIEW OF SYSTEMS: Denied any chest pain, palpitations. Denied any cough or shortness of breath. He denied any dizziness or numbness. CURRENT MEDICATIONS: - quetiapine 300 mg twice a day - trazodone 150 mg at night - Patient is on insulin for his diabetes and lisinopril for his high blood pressure. PLAN: Continue current medications. Continue current treatment, encouraged him to go to groups and activities. ESTIMATED LENGTH OF STAY: 4-5 days. TIME SPENT: 25 minutes. Vital Signs Vital Signs Date Time Temp Pulse Resp B/P (MAP) Pulse Ox O2 Delivery O2 Flow Rate FiO2 01/25/21 09:25 131/84 01/25/21 07:36 99.0 70 17 99 Room Air Laboratory Data 24H Labs Laboratory Tests 2 01/24/21 16:47: Bedside Glucose (Misc Panel) 128H 01/24/21 20:45: Bedside Glucose (Misc Panel) 123H 01/25/21 07:02: Bedside Glucose (Misc Panel) 52L 01/25/21 07:14: Bedside Glucose (Misc Panel) 56L 01/25/21 07:41: Bedside Glucose (Misc Panel) 85 01/25/21 08:43: Bedside Glucose Confirm (Misc) 184 01/25/21 12:01: Bedside Glucose (Misc Panel) 99 Current Medications Current Medications Medications (Trade) Dose Ordered Sig/Preston Route PRN Reason Start Time Stop Time Status Last Admin Dose Admin Acetaminophen (Tylenol Tab) 650 mg Q6HP PRN PO HEADACHE or MILD DISCOMFORT 01/16/21 14:55 Al Hydrox/Mg Hydrox/Simethicone (Mylanta) 30 ml Q4HP PRN PO HEARTBURN/INDIGESTION 01/16/21 14:55 Dextrose (Dextrose 50%) 25 ml ASDIRECTED PRN IV SEE LABEL COMMENTS 01/16/21 14:55 Diphenhydramine HCl (Benadryl) 50 mg Q6HP PRN PO ANXIETY/AGITATION 01/16/21 14:55 Escitalopram Oxalate (Lexapro) 10 mg DAILY PO 01/22/21 09:00 01/25/21 09:26 Glipizide (Glucotrol Xl) 10 mg DAILY PO 01/17/21 09:00 01/25/21 09:25 Glucagon (Glucagon) 1 mg ASDIRECTED PRN SC SEE LABEL COMMENTS 01/16/21 14:55 Glucose (Glucose) 16 GM ASDIRECTED PRN PO SEE LABEL COMMENTS 01/16/21 14:55 Home Med (Home Med List Complete!) ASDIRECTED XX 01/16/21 14:20 01/16/21 14:33 DC Insulin Human Lispro (HumaLOG INSULIN) See Protocol Table AC SC 01/16/21 17:30 01/24/21 17:01 Insulin Human Lispro (HumaLOG INSULIN) See Protocol Table QHS SC 01/16/21 21:00 Lisinopril (Prinivil) 20 mg DAILY PO 01/17/21 09:00 01/25/21 09:25 Lorazepam (Ativan) 1 mg STAT STAT PO 01/16/21 08:38 01/16/21 08:40 DC 01/16/21 08:48 Lorazepam (Ativan) 2 mg Q6HP PRN PO ANXIETY/AGITATION 01/16/21 14:55 01/22/21 12:59 DC Lorazepam (Ativan) 2 mg STAT STAT IV 01/16/21 02:41 01/16/21 02:42 DC 01/16/21 02:45 Lorazepam (Ativan) 2 mg STAT STAT IV 01/16/21 02:58 01/16/21 02:59 DC 01/16/21 03:09 Lorazepam (Ativan) 2 mg STAT STAT IV 01/16/21 03:32 01/16/21 03:33 DC 01/16/21 03:47 Magnesium Hydroxide (Milk Of Magnesia) 30 ml DAILYPRN PRN PO CONSTIPATION 01/16/21 14:55 Miscellaneous (Unresolved Clarification Entry) SEE LABEL COMMENTS DAILY XX 01/21/21 09:00 01/22/21 13:40 DC Nicotine (Nicoderm Cq 21mg) 1 patch DAILY TD 01/17/21 09:00 01/23/21 09:11 Olanzapine (ZyPREXA) 10 mg Q6HP PRN PO ANXIETY/AGITATION 01/16/21 14:55 Quetiapine Fumarate (SEROquel) 300 mg BID PO 01/17/21 09:00 01/25/21 09:26 Trazodone HCl (Desyrel) 150 mg QHS PO 01/16/21 21:00 01/24/21 20:48 Allergies Coded Allergies: chlorpromazine (Verified Allergy, Unknown, 10/22/20) haloperidol (Verified Adverse Reaction, Unknown, unknown, 07/27/20) Per brother, there was a reaction in the past the correction. He was unable to describe the reaction. PROSPER BOYKIN MD Jan 25, 2021 14:14
[2021-01-25 16:02] VITALS: BP 119/81
[2021-01-25] MEDS: traZODone 50 MG TAB PO SCH (21:31)
[2021-01-26 06:10] VITALS: BP 112/60
[2021-01-26] MEDS: HumaLOG INSULIN (NovoLOG) PER UNIT SC SCH ×4 (06:42→20:28)
[2021-01-26] MEDS: NICOTINE 21MG/24HR 1 EA TRANSDERMAL TD SCH (09:00)
[2021-01-26] MEDS: glipiZIDE XL 5 MG TABCR PO SCH (09:30)
[2021-01-26] MEDS: QUEtiapine FUMARATE 100 MG TAB PO SCH ×2 (09:30→20:21)
[2021-01-26] MEDS: ESCITALOPRAM OXALATE 10 MG TAB (LEXAPRO) PO SCH (09:30)
[2021-01-26 16:02] VITALS: BP 121/78
[2021-01-26] MEDS: traZODone 50 MG TAB PO SCH (20:21)
[2021-01-27 06:09] VITALS: BP 158/70
[2021-01-27] MEDS: HumaLOG INSULIN (NovoLOG) PER UNIT SC SCH ×4 (06:40→21:00)
[2021-01-27] MEDS: NICOTINE 21MG/24HR 1 EA TRANSDERMAL TD SCH (09:00)
[2021-01-27] MEDS: glipiZIDE XL 5 MG TABCR PO SCH (09:26)
[2021-01-27] MEDS: QUEtiapine FUMARATE 100 MG TAB PO SCH ×2 (09:27→21:39)
[2021-01-27] MEDS: ESCITALOPRAM OXALATE 10 MG TAB (LEXAPRO) PO SCH (09:27)
[2021-01-27 16:36] VITALS: BP 114/62
[2021-01-27] MEDS: traZODone 50 MG TAB PO SCH (21:40)
[2021-01-28 06:16] VITALS: BP 106/57
[2021-01-28] MEDS: HumaLOG INSULIN (NovoLOG) PER UNIT SC SCH ×4 (06:35→20:19)
[2021-01-28] MEDS: glipiZIDE XL 5 MG TABCR PO SCH (08:20)
[2021-01-28] MEDS: ESCITALOPRAM OXALATE 10 MG TAB (LEXAPRO) PO SCH (08:22)
[2021-01-28] MEDS: QUEtiapine FUMARATE 100 MG TAB PO SCH ×2 (08:22→20:17)
[2021-01-28] MEDS: NICOTINE 21MG/24HR 1 EA TRANSDERMAL TD SCH (08:22)
[2021-01-28 17:07] VITALS: BP 141/88
[2021-01-28] MEDS: traZODone 50 MG TAB PO SCH (20:17)
[2021-01-29 06:50] VITALS: BP 111/59
[2021-01-29] MEDS: HumaLOG INSULIN (NovoLOG) PER UNIT SC SCH ×4 (06:54→20:43)
[2021-01-29] MEDS: NICOTINE 21MG/24HR 1 EA TRANSDERMAL TD SCH (09:00)
[2021-01-29] MEDS: ESCITALOPRAM OXALATE 10 MG TAB (LEXAPRO) PO SCH (09:59)
[2021-01-29] MEDS: QUEtiapine FUMARATE 100 MG TAB PO SCH ×2 (09:59→20:41)
[2021-01-29] MEDS: glipiZIDE XL 5 MG TABCR PO SCH (09:59)
--- NOTE | 2021-01-29 12:13 | MHIPNPDOC ---
[facility] Progress Note Progress Note DATE OF SERVICE: 01/29/21 HISTORY: Patient is a 56-year-old Single, homeless, unemployed, Male who is admitted because of bizarre behavior. Patient is well known to this facility having numerous admissions to this facility. He has a history of schizophrenia versus schizoaffective disorder, homelessness, polysubstance abuse, substance-induced psychotic disorder, multiple inpatient visits, Last [facility] visit was September 2020. He presented with EMS after being found by police in the facility at the [facility], because the alarm was triggered and he happened to be in the area. Drug screen was positive for cannabis, cocaine, and amphetamines. The patient was acting bizarrely, making statements that he was in [employer], was swearing at "an [employer]", believed that he was fighting to save Emily and started walking into traffic oblivious to the cars. He was medicated in the ED with Ativan 6 mg due to his aggression and agitation. VITAL SIGNS: See below. CURRENT MEDICATIONS: See below. MENTAL STATUS EXAMINATION: Patient is a 56-year-old Single, homeless, unemployed, Male who is admitted because of bizarre behavior. Speech: Is normal rate tone and volume patient had minimal responses Language skills are intact. Thought processes including: Linear and goal oriented. Thought content: Denies depression and anxiety denies suicidal ideations denies homicidal ideations denies planning or intent. Abstract reasoning, and computation: Fair. Description of associations: Denies. Description of abnormal or psychotic thoughts: Denies none observed Judgment: Improving Insight: Improved Orientation: Alert and oriented x3. Recent and remote memory: Fairly intact Attention span and concentration: Fair Language: Expansive Fund of knowledge: Below average Mood: Euthymic affect: Euthymic DIAGNOSES: Schizoaffective disorder bipolar type Cocaine use disorder Cannabis use disorder Methamphetamine use disorder Nicotine use disorder History of noncompliance of medication ASSESSMENT: Patient found sleeping in his room. He denies current psychotic symptoms, admits to substance use prior to his admission. He denies any delusional thinking, denies suicidal or homicidal ideations. Denies depression and anxiety. Patient is motivated for Rehab, has an interview with [facility] and also has family who is trying to make arrangements for an admission in [place] where he would have supports. Patient states that he is feeling that Rehab would benefit him at this time. MANAGEMENT PLAN: Continue all medications and supportive therapy. Discharge when patient is stable. Possibly end of the week for his discharge TIME SPENT: 25-minute minutes. Vital Signs Vital Signs Date Time Temp Pulse Resp B/P (MAP) Pulse Ox O2 Delivery O2 Flow Rate FiO2 01/29/21 10:55 Room Air 01/29/21 10:00 136/72 01/29/21 06:50 97.5 76 20 98 Laboratory Data 24H Labs Laboratory Tests 2 01/28/21 17:05: Bedside Glucose (Misc Panel) 182H 01/28/21 20:16: Bedside Glucose (Misc Panel) 186H 01/29/21 06:26: Bedside Glucose (Misc Panel) 76 Current Medications Current Medications Medications (Trade) Dose Ordered Sig/Preston Route PRN Reason Start Time Stop Time Status Last Admin Dose Admin Acetaminophen (Tylenol Tab) 650 mg Q6HP PRN PO HEADACHE or MILD DISCOMFORT 01/16/21 14:55 Al Hydrox/Mg Hydrox/Simethicone (Mylanta) 30 ml Q4HP PRN PO HEARTBURN/INDIGESTION 01/16/21 14:55 Dextrose (Dextrose 50%) 25 ml ASDIRECTED PRN IV SEE LABEL COMMENTS 01/16/21 14:55 Diphenhydramine HCl (Benadryl) 50 mg Q6HP PRN PO ANXIETY/AGITATION 01/16/21 14:55 Escitalopram Oxalate (Lexapro) 10 mg DAILY PO 01/22/21 09:00 01/29/21 09:59 Glipizide (Glucotrol Xl) 10 mg DAILY PO 01/17/21 09:00 01/29/21 09:59 Glucagon (Glucagon) 1 mg ASDIRECTED PRN SC SEE LABEL COMMENTS 01/16/21 14:55 Glucose (Glucose) 16 GM ASDIRECTED PRN PO SEE LABEL COMMENTS 01/16/21 14:55 Home Med (Home Med List Complete!) ASDIRECTED XX 01/16/21 14:20 01/16/21 14:33 DC Insulin Human Lispro (HumaLOG INSULIN) See Protocol Table AC SC 01/16/21 17:30 01/28/21 17:16 Insulin Human Lispro (HumaLOG INSULIN) See Protocol Table QHS SC 01/16/21 21:00 Lisinopril (Prinivil) 20 mg DAILY PO 01/17/21 09:00 01/29/21 10:00 Lorazepam (Ativan) 1 mg STAT STAT PO 01/16/21 08:38 01/16/21 08:40 DC 01/16/21 08:48 Lorazepam (Ativan) 2 mg Q6HP PRN PO ANXIETY/AGITATION 01/16/21 14:55 01/22/21 12:59 DC Lorazepam (Ativan) 2 mg STAT STAT IV 01/16/21 02:41 01/16/21 02:42 DC 01/16/21 02:45 Lorazepam (Ativan) 2 mg STAT STAT IV 01/16/21 02:58 01/16/21 02:59 DC 01/16/21 03:09 Lorazepam (Ativan) 2 mg STAT STAT IV 01/16/21 03:32 01/16/21 03:33 DC 01/16/21 03:47 Magnesium Hydroxide (Milk Of Magnesia) 30 ml DAILYPRN PRN PO CONSTIPATION 01/16/21 14:55 Miscellaneous (Unresolved Clarification Entry) SEE LABEL COMMENTS DAILY XX 01/21/21 09:00 01/22/21 13:40 DC Nicotine (Nicoderm Cq 21mg) 1 patch DAILY TD 01/17/21 09:00 01/23/21 09:11 Olanzapine (ZyPREXA) 10 mg Q6HP PRN PO ANXIETY/AGITATION 01/16/21 14:55 Quetiapine Fumarate (SEROquel) 300 mg BID PO 01/17/21 09:00 01/29/21 09:59 Trazodone HCl (Desyrel) 150 mg QHS PO 01/16/21 21:00 01/28/21 20:17 Allergies Coded Allergies: chlorpromazine (Verified Allergy, Unknown, 10/22/20) haloperidol (Verified Adverse Reaction, Unknown, unknown, 07/27/20) Per brother, there was a reaction in the past the nursing home. He was unable to describe the reaction. REGINE JACK MILK INSPECTOR Jan 29, 2021 12:13
[2021-01-29 17:58] VITALS: BP 138/76
[2021-01-29] MEDS: traZODone 50 MG TAB PO SCH (20:41)
[2021-01-30] MEDS: HumaLOG INSULIN (NovoLOG) PER UNIT SC SCH ×4 (06:35→20:30)
[2021-01-30 06:39] VITALS: BP 129/80
[2021-01-30] MEDS: NICOTINE 21MG/24HR 1 EA TRANSDERMAL TD SCH (09:00)
[2021-01-30] MEDS: QUEtiapine FUMARATE 100 MG TAB PO SCH ×2 (09:12→20:26)
[2021-01-30] MEDS: ESCITALOPRAM OXALATE 10 MG TAB (LEXAPRO) PO SCH (09:13)
[2021-01-30] MEDS: glipiZIDE XL 5 MG TABCR PO SCH (09:13)
--- NOTE | 2021-01-30 12:44 | MHIPNPDOC ---
[facility] Progress Note Progress Note DATE OF SERVICE: 01/30/21 HISTORY: Patient is a 56-year-old Single, homeless, unemployed, Male who is admitted because of bizarre behavior. Patient is well known to this facility having numerous admissions to this facility. He has a history of schizophrenia versus schizoaffective disorder, homelessness, polysubstance abuse, substance-induced psychotic disorder, multiple inpatient visits, Last [facility] visit was September 2020. He presented with EMS after being found by police in the facility at the [facility], because the alarm was triggered and he happened to be in the area. Drug screen was positive for cannabis, cocaine, and amphetamines. The patient was acting bizarrely, making statements that he was in [employer], was swearing at "an [employer]", believed that he was fighting to save Emily and started walking into traffic oblivious to the cars. He was medicated in the ED with Ativan 6 mg due to his aggression and agitation. VITAL SIGNS: See below. CURRENT MEDICATIONS: See below. MENTAL STATUS EXAMINATION: Patient is a 56-year-old Single, homeless, unemployed, Male who is admitted because of bizarre behavior. Speech: Is normal rate tone and volume patient had minimal responses Language skills are intact. Thought processes including: Linear and goal oriented. Thought content: Denies depression and anxiety denies suicidal ideations denies homicidal ideations denies planning or intent. Abstract reasoning, and computation: Fair. Description of associations: Denies. Description of abnormal or psychotic thoughts: Denies none observed Judgment: Improving Insight: Improved Orientation: Alert and oriented x3. Recent and remote memory: Fairly intact Attention span and concentration: Fair Language: Expansive Fund of knowledge: Below average Mood: Euthymic affect: Euthymic DIAGNOSES: Schizoaffective disorder bipolar type Cocaine use disorder Cannabis use disorder Methamphetamine use disorder Nicotine use disorder History of noncompliance of medication ASSESSMENT: Patient agreeable to interview, found mildly drowsy as he was awakened for the interview. Patient denies any abnormal psychotic symptoms - denying delusions, paranoia, AH/VH and manic behaviors. He states that he is not depressed or anxious. Patient is awaiting for a bed at a Rehab, reporting that his psychotic symptoms were substance induced. Patient has been motivated in interviewing with rehab facilities. MANAGEMENT PLAN: Continue all medications and supportive therapy. Discharge when patient is stable. TIME SPENT: 25-minute minutes. Vital Signs Vital Signs Date Time Temp Pulse Resp B/P (MAP) Pulse Ox O2 Delivery O2 Flow Rate FiO2 01/30/21 09:13 136/87 01/30/21 06:39 98.2 74 14 100 Room Air Laboratory Data 24H Labs Laboratory Tests 2 01/29/21 17:28: Bedside Glucose (Misc Panel) 202H 01/29/21 20:39: Bedside Glucose (Misc Panel) 192H 01/30/21 06:32: Bedside Glucose (Misc Panel) 82 01/30/21 12:13: Bedside Glucose (Misc Panel) 155H Current Medications Current Medications Medications (Trade) Dose Ordered Sig/Preston Route PRN Reason Start Time Stop Time Status Last Admin Dose Admin Acetaminophen (Tylenol Tab) 650 mg Q6HP PRN PO HEADACHE or MILD DISCOMFORT 01/16/21 14:55 Al Hydrox/Mg Hydrox/Simethicone (Mylanta) 30 ml Q4HP PRN PO HEARTBURN/INDIGESTION 01/16/21 14:55 Dextrose (Dextrose 50%) 25 ml ASDIRECTED PRN IV SEE LABEL COMMENTS 01/16/21 14:55 Diphenhydramine HCl (Benadryl) 50 mg Q6HP PRN PO ANXIETY/AGITATION 01/16/21 14:55 Escitalopram Oxalate (Lexapro) 10 mg DAILY PO 01/22/21 09:00 01/30/21 09:13 Glipizide (Glucotrol Xl) 10 mg DAILY PO 01/17/21 09:00 01/30/21 09:13 Glucagon (Glucagon) 1 mg ASDIRECTED PRN SC SEE LABEL COMMENTS 01/16/21 14:55 Glucose (Glucose) 16 GM ASDIRECTED PRN PO SEE LABEL COMMENTS 01/16/21 14:55 Home Med (Home Med List Complete!) ASDIRECTED XX 01/16/21 14:20 01/16/21 14:33 DC Insulin Human Lispro (HumaLOG INSULIN) See Protocol Table AC SC 01/16/21 17:30 01/30/21 12:16 Insulin Human Lispro (HumaLOG INSULIN) See Protocol Table QHS SC 01/16/21 21:00 Lisinopril (Prinivil) 20 mg DAILY PO 01/17/21 09:00 01/30/21 09:13 Lorazepam (Ativan) 1 mg STAT STAT PO 01/16/21 08:38 01/16/21 08:40 DC 01/16/21 08:48 Lorazepam (Ativan) 2 mg Q6HP PRN PO ANXIETY/AGITATION 01/16/21 14:55 01/22/21 12:59 DC Lorazepam (Ativan) 2 mg STAT STAT IV 01/16/21 02:41 01/16/21 02:42 DC 01/16/21 02:45 Lorazepam (Ativan) 2 mg STAT STAT IV 01/16/21 02:58 01/16/21 02:59 DC 01/16/21 03:09 Lorazepam (Ativan) 2 mg STAT STAT IV 01/16/21 03:32 01/16/21 03:33 DC 01/16/21 03:47 Magnesium Hydroxide (Milk Of Magnesia) 30 ml DAILYPRN PRN PO CONSTIPATION 01/16/21 14:55 Miscellaneous (Unresolved Clarification Entry) SEE LABEL COMMENTS DAILY XX 01/21/21 09:00 01/22/21 13:40 DC Nicotine (Nicoderm Cq 21mg) 1 patch DAILY TD 01/17/21 09:00 01/23/21 09:11 Olanzapine (ZyPREXA) 10 mg Q6HP PRN PO ANXIETY/AGITATION 01/16/21 14:55 Quetiapine Fumarate (SEROquel) 300 mg BID PO 01/17/21 09:00 01/30/21 09:12 Trazodone HCl (Desyrel) 150 mg QHS PO 01/16/21 21:00 01/29/21 20:41 Allergies Coded Allergies: chlorpromazine (Verified Allergy, Unknown, 10/22/20) haloperidol (Verified Adverse Reaction, Unknown, unknown, 07/27/20) Per brother, there was a [facility]. He was unable to describe the reaction. REGINE JACK MEDICAL LABORATORY TECHNICIAN Jan 30, 2021 12:44
[2021-01-30] MEDS: traZODone 50 MG TAB PO SCH (20:27)
[2021-01-31 06:06] VITALS: BP 140/80
[2021-01-31] MEDS: HumaLOG INSULIN (NovoLOG) PER UNIT SC SCH ×4 (06:32→21:00)
[2021-01-31] MEDS: NICOTINE 21MG/24HR 1 EA TRANSDERMAL TD SCH ×2 (09:00→09:57)
[2021-01-31] MEDS: glipiZIDE XL 5 MG TABCR PO SCH (09:57)
[2021-01-31] MEDS: ESCITALOPRAM OXALATE 10 MG TAB (LEXAPRO) PO SCH (09:57)
[2021-01-31] MEDS: QUEtiapine FUMARATE 100 MG TAB PO SCH ×2 (09:57→21:35)
--- NOTE | 2021-01-31 11:08 | MHIPNPDOC ---
[facility] Progress Note Progress Note DATE OF SERVICE: 01/31/21 HISTORY: Patient is a 56-year-old Single, homeless, unemployed, Male who is admitted because of bizarre behavior. Patient is well known to this facility having numerous admissions to this facility. He has a history of schizophrenia versus schizoaffective disorder, homelessness, polysubstance abuse, substance-induced psychotic disorder, multiple inpatient visits, Last [facility]S [facility] 234 BEDS AT THE [facility] visit was September 2020. He presented with EMS after being found by police in the facility at the [facility], because the alarm was triggered and he happened to be in the area. Drug screen was positive for cannabis, cocaine, and amphetamines. The patient was acting bizarrely, making statements that he was in [employer], was swearing at "an [employer]", believed that he was fighting to save Emily and started walking into traffic oblivious to the cars. He was medicated in the ED with Ativan 6 mg due to his aggression and agitation. VITAL SIGNS: See below. CURRENT MEDICATIONS: See below. MENTAL STATUS EXAMINATION: Patient is a 56-year-old Single, homeless, unemployed, Male who is admitted because of bizarre behavior. Speech: Is normal rate tone and volume patient had minimal responses Language skills are intact. Thought processes including: Linear and goal oriented. Thought content: Denies depression and anxiety denies suicidal ideations denies homicidal ideations denies planning or intent. Abstract reasoning, and computation: Fair. Description of associations: Denies. Description of abnormal or psychotic thoughts: Denies none observed Judgment: Improving Insight: Improved Orientation: Alert and oriented x3. Recent and remote memory: Fairly intact Attention span and concentration: Fair Language: Expansive Fund of knowledge: Below average Mood: Euthymic affect: Euthymic DIAGNOSES: Schizoaffective disorder bipolar type Cocaine use disorder Cannabis use disorder Methamphetamine use disorder Nicotine use disorder History of noncompliance of medication ASSESSMENT: Patient found sleeping, agreeable to interview. Patient states "I am feeling pretty good". He rated his depression "5/10" and his anxiety is "okay" today. Patient denies any SI/HI/AH/VH and has not demonstrated any psychotic behaviors since hospitalized. No delusional statements. Patient sleeps most of his admission, admitting to substance use. Patient is compliant with treatment planing, medication management, and states he "will attend group". Discharge planning set for Thursday where he will transported to [facility] for rehab treatment. MANAGEMENT PLAN: Continue all medications and supportive therapy. Discharge Thursday. TIME SPENT: 25-minute minutes. Vital Signs Vital Signs Date Time Temp Pulse Resp B/P (MAP) Pulse Ox O2 Delivery O2 Flow Rate FiO2 01/31/21 09:58 131/86 01/31/21 06:06 98.0 66 16 98 Room Air Laboratory Data 24H Labs Laboratory Tests 2 01/30/21 12:13: Bedside Glucose (Misc Panel) 155H 01/30/21 16:59: Bedside Glucose (Misc Panel) 133H 01/30/21 20:29: Bedside Glucose (Misc Panel) 230H 01/31/21 06:23: Bedside Glucose (Misc Panel) 73 Current Medications Current Medications Medications (Trade) Dose Ordered Sig/Preston Route PRN Reason Start Time Stop Time Status Last Admin Dose Admin Acetaminophen (Tylenol Tab) 650 mg Q6HP PRN PO HEADACHE or MILD DISCOMFORT 01/16/21 14:55 Al Hydrox/Mg Hydrox/Simethicone (Mylanta) 30 ml Q4HP PRN PO HEARTBURN/INDIGESTION 01/16/21 14:55 Dextrose (Dextrose 50%) 25 ml ASDIRECTED PRN IV SEE LABEL COMMENTS 01/16/21 14:55 Diphenhydramine HCl (Benadryl) 50 mg Q6HP PRN PO ANXIETY/AGITATION 01/16/21 14:55 Escitalopram Oxalate (Lexapro) 10 mg DAILY PO 01/22/21 09:00 01/31/21 09:57 Glipizide (Glucotrol Xl) 10 mg DAILY PO 01/17/21 09:00 01/31/21 09:57 Glucagon (Glucagon) 1 mg ASDIRECTED PRN SC SEE LABEL COMMENTS 01/16/21 14:55 Glucose (Glucose) 16 GM ASDIRECTED PRN PO SEE LABEL COMMENTS 01/16/21 14:55 Home Med (Home Med List Complete!) ASDIRECTED XX 01/16/21 14:20 01/16/21 14:33 DC Insulin Human Lispro (HumaLOG INSULIN) See Protocol Table AC SC 01/16/21 17:30 01/30/21 12:16 Insulin Human Lispro (HumaLOG INSULIN) See Protocol Table QHS SC 01/16/21 21:00 Lisinopril (Prinivil) 20 mg DAILY PO 01/17/21 09:00 01/31/21 09:58 Lorazepam (Ativan) 1 mg STAT STAT PO 01/16/21 08:38 01/16/21 08:40 DC 01/16/21 08:48 Lorazepam (Ativan) 2 mg Q6HP PRN PO ANXIETY/AGITATION 01/16/21 14:55 01/22/21 12:59 DC Lorazepam (Ativan) 2 mg STAT STAT IV 01/16/21 02:41 01/16/21 02:42 DC 01/16/21 02:45 Lorazepam (Ativan) 2 mg STAT STAT IV 01/16/21 02:58 01/16/21 02:59 DC 01/16/21 03:09 Lorazepam (Ativan) 2 mg STAT STAT IV 01/16/21 03:32 01/16/21 03:33 DC 01/16/21 03:47 Magnesium Hydroxide (Milk Of Magnesia) 30 ml DAILYPRN PRN PO CONSTIPATION 01/16/21 14:55 01/30/21 17:11 Miscellaneous (Unresolved Clarification Entry) SEE LABEL COMMENTS DAILY XX 01/21/21 09:00 01/22/21 13:40 DC Nicotine (Nicoderm Cq 21mg) 1 patch DAILY TD 01/17/21 09:00 01/23/21 09:11 Olanzapine (ZyPREXA) 10 mg Q6HP PRN PO ANXIETY/AGITATION 01/16/21 14:55 Quetiapine Fumarate (SEROquel) 300 mg BID PO 01/17/21 09:00 01/31/21 09:57 Trazodone HCl (Desyrel) 150 mg QHS PO 01/16/21 21:00 01/30/21 20:27 Allergies Coded Allergies: chlorpromazine (Verified Allergy, Unknown, 10/22/20) haloperidol (Verified Adverse Reaction, Unknown, unknown, 07/27/20) Per brother, there was a [facility] the past the [facility]. He was unable to describe the reaction. REGINE JACK MAIL TRUCK DRIVER Jan 31, 2021 11:08
[2021-01-31 18:22] VITALS: BP 112/62
[2021-01-31] MEDS: traZODone 50 MG TAB PO SCH (21:36)
[2021-02-01 06:31] VITALS: BP 157/85
[2021-02-01] MEDS: HumaLOG INSULIN (NovoLOG) PER UNIT SC SCH ×4 (06:37→20:45)
[2021-02-01] MEDS: NICOTINE 21MG/24HR 1 EA TRANSDERMAL TD SCH (09:00)
[2021-02-01] MEDS: ESCITALOPRAM OXALATE 10 MG TAB (LEXAPRO) PO SCH (09:55)
[2021-02-01] MEDS: QUEtiapine FUMARATE 100 MG TAB PO SCH ×2 (09:56→20:43)
[2021-02-01] MEDS: glipiZIDE XL 5 MG TABCR PO SCH (09:56)
--- NOTE | 2021-02-01 11:58 | MHIPNPDOC ---
[facility] Progress Note Progress Note DATE OF SERVICE: 02/01/21 HISTORY: Patient is a 56-year-old Single, homeless, unemployed, Male who is admitted because of bizarre behavior. Patient is well known to this facility having numerous admissions to this facility. He has a history of schizophrenia versus schizoaffective disorder, homelessness, polysubstance abuse, substance-induced psychotic disorder, multiple inpatient visits, Last [facility] visit was September 2020. He presented with EMS after being found by police in the facility at the [facility], because the alarm was triggered and he happened to be in the area. Drug screen was positive for cannabis, cocaine, and amphetamines. The patient was acting bizarrely, making statements that he was in [employer], was swearing at "an [employer]", believed that he was fighting to save Emily and started walking into traffic oblivious to the cars. He was medicated in the ED with Ativan 6 mg due to his aggression and agitation. VITAL SIGNS: See below. CURRENT MEDICATIONS: See below. MENTAL STATUS EXAMINATION: Patient is a 56-year-old Single, homeless, unemployed, Male who is admitted because of bizarre behavior. Speech: Is normal rate tone and volume patient had minimal responses Language skills are intact. Thought processes including: Linear and goal oriented. Thought content: Denies depression and anxiety denies suicidal ideations denies homicidal ideations denies planning or intent. Abstract reasoning, and computation: Fair. Description of associations: Denies. Description of abnormal or psychotic thoughts: Denies none observed Judgment: Fair Insight: Fair Orientation: Alert and oriented x3. Recent and remote memory: Fairly intact Attention span and concentration: Fair Language: Expansive Fund of knowledge: Below average Mood: Euthymic Affect: Drowsy/ Euthymic DIAGNOSES: Schizoaffective disorder bipolar type Cocaine use disorder Cannabis use disorder Methamphetamine use disorder Nicotine use disorder History of noncompliance of medication ASSESSMENT: Patient found sleeping. He is out late in the evening but sleeps most of the morning. Denies depression and anxiety, denies suicidal ideations/homicidal ideation, planning or intent. He is not observed with tana, ruminations, paranoia, delusions or AH/VH. Patient out for meds and meals and social in the evenings. Patient is being discharged to [facility] facility. MANAGEMENT PLAN: Continue all medications and supportive therapy. Discharge Thursday to Rehab TIME SPENT: 25-minute minutes. Vital Signs Vital Signs Date Time Temp Pulse Resp B/P (MAP) Pulse Ox O2 Delivery O2 Flow Rate FiO2 02/01/21 09:55 157/85 02/01/21 06:31 97.1 67 18 98 Room Air Laboratory Data 24H Labs Laboratory Tests 2 01/31/21 11:51: Bedside Glucose (Misc Panel) 181H 01/31/21 17:05: Bedside Glucose (Misc Panel) 122H 01/31/21 21:39: Bedside Glucose (Misc Panel) 233H 02/01/21 06:35: Bedside Glucose (Misc Panel) 75 Current Medications Current Medications Medications (Trade) Dose Ordered Sig/Preston Route PRN Reason Start Time Stop Time Status Last Admin Dose Admin Acetaminophen (Tylenol Tab) 650 mg Q6HP PRN PO HEADACHE or MILD DISCOMFORT 01/16/21 14:55 Al Hydrox/Mg Hydrox/Simethicone (Mylanta) 30 ml Q4HP PRN PO HEARTBURN/INDIGESTION 01/16/21 14:55 Dextrose (Dextrose 50%) 25 ml ASDIRECTED PRN IV SEE LABEL COMMENTS 01/16/21 14:55 Diphenhydramine HCl (Benadryl) 50 mg Q6HP PRN PO ANXIETY/AGITATION 01/16/21 14:55 Escitalopram Oxalate (Lexapro) 10 mg DAILY PO 01/22/21 09:00 02/01/21 09:55 Glipizide (Glucotrol Xl) 10 mg DAILY PO 01/17/21 09:00 02/01/21 09:56 Glucagon (Glucagon) 1 mg ASDIRECTED PRN SC SEE LABEL COMMENTS 01/16/21 14:55 Glucose (Glucose) 16 GM ASDIRECTED PRN PO SEE LABEL COMMENTS 01/16/21 14:55 Home Med (Home Med List Complete!) ASDIRECTED XX 01/16/21 14:20 01/16/21 14:33 DC Insulin Human Lispro (HumaLOG INSULIN) See Protocol Table AC SC 01/16/21 17:30 01/31/21 17:16 Insulin Human Lispro (HumaLOG INSULIN) See Protocol Table QHS SC 01/16/21 21:00 Lisinopril (Prinivil) 20 mg DAILY PO 01/17/21 09:00 02/01/21 09:55 Lorazepam (Ativan) 1 mg STAT STAT PO 01/16/21 08:38 01/16/21 08:40 DC 01/16/21 08:48 Lorazepam (Ativan) 2 mg Q6HP PRN PO ANXIETY/AGITATION 01/16/21 14:55 01/22/21 12:59 DC Lorazepam (Ativan) 2 mg STAT STAT IV 01/16/21 02:41 01/16/21 02:42 DC 01/16/21 02:45 Lorazepam (Ativan) 2 mg STAT STAT IV 01/16/21 02:58 01/16/21 02:59 DC 01/16/21 03:09 Lorazepam (Ativan) 2 mg STAT STAT IV 01/16/21 03:32 01/16/21 03:33 DC 01/16/21 03:47 Magnesium Hydroxide (Milk Of Magnesia) 30 ml DAILYPRN PRN PO CONSTIPATION 01/16/21 14:55 01/30/21 17:11 Miscellaneous (Unresolved Clarification Entry) SEE LABEL COMMENTS DAILY XX 01/21/21 09:00 01/22/21 13:40 DC Nicotine (Nicoderm Cq 21mg) 1 patch DAILY TD 01/17/21 09:00 01/23/21 09:11 Olanzapine (ZyPREXA) 10 mg Q6HP PRN PO ANXIETY/AGITATION 01/16/21 14:55 Quetiapine Fumarate (SEROquel) 300 mg BID PO 01/17/21 09:00 02/01/21 09:56 Trazodone HCl (Desyrel) 150 mg QHS PO 01/16/21 21:00 01/31/21 21:36 Allergies Coded Allergies: chlorpromazine (Verified Allergy, Unknown, 10/22/20) haloperidol (Verified Adverse Reaction, Unknown, unknown, 07/27/20) Per brother, there was a reaction in the past the care home. He was unable to describe the reaction. REGINE JACK MANAGER CARE MANAGEMENT Feb 01, 2021 11:02
[2021-02-01] MEDS ORDERED: LEXA1TAB PO (13:02)
[2021-02-01] MEDS ORDERED: NICO21PAT TD (13:02)
[2021-02-01] MEDS ORDERED: QUET300T2 PO (13:02)
[2021-02-01] MEDS ORDERED: GLIP10TA18 PO (13:10)
[2021-02-01] MEDS ORDERED: LISI20TA33 PO (13:10)
[2021-02-01] MEDS ORDERED: INVE234I IM (13:10)
[2021-02-01] MEDS ORDERED: TRAZ1TAB14 PO (13:11)
[2021-02-01] MEDS ORDERED: ALOG1TAB2 PO (13:11)
[2021-02-01] MEDS ORDERED: LEXA1TAB2 PO (13:11)
[2021-02-01 18:34] VITALS: BP 144/84
[2021-02-01] MEDS: traZODone 50 MG TAB PO SCH (20:43)
[2021-02-02 06:24] VITALS: BP 114/65
[2021-02-02] MEDS: HumaLOG INSULIN (NovoLOG) PER UNIT SC SCH ×4 (06:52→20:50)
[2021-02-02] MEDS: NICOTINE 21MG/24HR 1 EA TRANSDERMAL TD SCH (09:00)
[2021-02-02] MEDS: QUEtiapine FUMARATE 100 MG TAB PO SCH ×2 (09:42→20:48)
[2021-02-02] MEDS: ESCITALOPRAM OXALATE 10 MG TAB (LEXAPRO) PO SCH (09:42)
[2021-02-02] MEDS: glipiZIDE XL 5 MG TABCR PO SCH (09:43)
--- NOTE | 2021-02-02 12:43 | MHIPNPDOC ---
[facility] Progress Note Progress Note DATE OF SERVICE: 02/02/21 HISTORY: Patient is a 56-year-old Single, homeless, unemployed, Male who is admitted because of bizarre behavior. Patient is well known to this facility having numerous admissions to this facility. He has a history of schizophrenia versus schizoaffective disorder, homelessness, polysubstance abuse, substance-induced psychotic disorder, multiple inpatient visits, Last [facility] visit was September 2020. He presented with EMS after being found by police in the facility at the [facility], because the alarm was triggered and he happened to be in the area. Drug screen was positive for cannabis, cocaine, and amphetamines. The patient was acting bizarrely, making statements that he was in [employer], was swearing at "an [employer]", belie ed that he was fighting to save Emily and started walking into traffic oblivious to the cars. He was medicated in the ED with Ativan 6 mg due to his aggression and agitation. VITAL SIGNS: See below. CURRENT MEDICATIONS: See below. MENTAL STATUS EXAMINATION: Patient is a 56-year-old Single, homeless, unemployed, Male who is admitted because of bizarre behavior. Speech: Is normal rate tone and volume patient had minimal responses Language skills are intact. Thought processes including: Linear and goal oriented. Thought content: Denies depression and anxiety denies suicidal ideations denies homicidal ideations denies planning or intent. Abstract reasoning, and computation: Fair. Description of associations: Denies. Description of abnormal or psychotic thoughts: Denies none observed Judgment: Fair Insight: Fair Orientation: Alert and oriented x3. Recent and remote memory: Fairly intact Attention span and concentration: Fair Language: Expansive Fund of knowledge: Below average Mood: Euthymic Affect: Drowsy/ Euthymic DIAGNOSES: Schizoaffective disorder bipolar type Cocaine use disorder Cannabis use disorder Methamphetamine use disorder Nicotine use disorder History of noncompliance of medication ASSESSMENT: Patient seen in his bedroom. His mood is good using good humor and plans to go to rehabilitation. He is out late in the evening but sleeps most of the morni ng. Denies depression and anxiety, denies suicidal ideations/homicidal ideation, planning or intent. He is not observed with tana, ruminations, paranoia, delusions or AH/VH. Patient out for meds and meals and social in the evenings. Patient is being discharged to [facility] facility. Discharge is planned MANAGEMENT PLAN: Continue all medications and supportive therapy. Discharge Thursday to Rehab TIME SPENT: 25-minutes Vital Signs Vital Signs Date Time Temp Pulse Resp B/P (MAP) Pulse Ox O2 Delivery O2 Flow Rate FiO2 02/02/21 09:43 114/65 02/02/21 06:24 98.2 74 20 99 Room Air Laboratory Data 24H Labs Laboratory Tests 2 02/01/21 17:19: Bedside Glucose (Misc Panel) 167H 02/01/21 20:41: Bedside Glucose (Misc Panel) 172H 02/02/21 06:50: Bedside Glucose (Misc Panel) 86 02/02/21 11:37: Bedside Glucose (Misc Panel) 133H Current Medications Current Medications Medications (Trade) Dose Ordered Sig/Preston Route PRN Reason Start Time Stop Time Status Last Admin Dose Admin Acetaminophen (Tylenol Tab) 650 mg Q6HP PRN PO HEADACHE or MILD DISCOMFORT 01/16/21 14:55 Al Hydrox/Mg Hydrox/Simethicone (Mylanta) 30 ml Q4HP PRN PO HEARTBURN/INDIGESTION 01/16/21 14:55 Dextrose (Dextrose 50%) 25 ml ASDIRECTED PRN IV SEE LABEL COMMENTS 01/16/21 14:55 Diphenhydramine HCl (Benadryl) 50 mg Q6HP PRN PO ANXIETY/AGITATION 01/16/21 14:55 Escitalopram Oxalate (Lexapro) 10 mg DAILY PO 01/22/21 09:00 02/01/21 13:03 DC 02/01/21 09:55 Escitalopram Oxalate (Lexapro) 20 mg DAILY PO 02/02/21 09:00 02/02/21 09:42 Glipizide (Glucotrol Xl) 10 mg DAILY PO 01/17/21 09:00 02/02/21 09:43 Glucagon (Glucagon) 1 mg ASDIRECTED PRN SC SEE LABEL COMMENTS 01/16/21 14:55 Glucose (Glucose) 16 GM ASDIRECTED PRN PO SEE LABEL COMMENTS 01/16/21 14:55 Home Med (Home Med List Complete!) ASDIRECTED XX 01/16/21 14:20 01/16/21 14:33 DC Insulin Human Lispro (HumaLOG INSULIN) See Protocol Table AC SC 01/16/21 17:30 02/02/21 12:04 Insulin Human Lispro (HumaLOG INSULIN) See Protocol Table QHS SC 01/16/21 21:00 Lisinopril (Prinivil) 20 mg DAILY PO 01/17/21 09:00 02/02/21 09:43 Lorazepam (Ativan) 1 mg STAT STAT PO 01/16/21 08:38 01/16/21 08:40 DC 01/16/21 08:48 Lorazepam (Ativan) 2 mg Q6HP PRN PO ANXIETY/AGITATION 01/16/21 14:55 01/22/21 12:59 DC Lorazepam (Ativan) 2 mg STAT STAT IV 01/16/21 02:41 01/16/21 02:42 DC 01/16/21 02:45 Lorazepam (Ativan) 2 mg STAT STAT IV 01/16/21 02:58 01/16/21 02:59 DC 01/16/21 03:09 Lorazepam (Ativan) 2 mg STAT STAT IV 01/16/21 03:32 01/16/21 03:33 DC 01/16/21 03:47 Magnesium Hydroxide (Milk Of Magnesia) 30 ml DAILYPRN PRN PO CONSTIPATION 01/16/21 14:55 01/30/21 17:11 Miscellaneous (Unresolved Clarification Entry) SEE LABEL COMMENTS DAILY XX 01/21/21 09:00 01/22/21 13:40 DC Nicotine (Nicoderm Cq 21mg) 1 patch DAILY TD 01/17/21 09:00 01/23/21 09:11 Olanzapine (ZyPREXA) 10 mg Q6HP PRN PO ANXIETY/AGITATION 01/16/21 14:55 Quetiapine Fumarate (SEROquel) 300 mg BID PO 01/17/21 09:00 02/02/21 09:42 Trazodone HCl (Desyrel) 150 mg QHS PO 01/16/21 21:00 02/01/21 20:43 Allergies Coded Allergies: chlorpromazine (Verified Allergy, Unknown, 10/22/20) haloperidol (Verified Adverse Reaction, Unknown, unknown, 07/27/20) Per brother, there was a reaction in the past the skilled nursing. He was unable to describe the reaction. VLAD MORELAND MD Feb 02, 2021 12:43
[2021-02-02 18:26] VITALS: BP 127/83
[2021-02-02] MEDS: traZODone 50 MG TAB PO SCH (20:48)
[2021-02-03] MEDS: HumaLOG INSULIN (NovoLOG) PER UNIT SC SCH ×2 (06:25→12:00)
[2021-02-03] MEDS: NICOTINE 21MG/24HR 1 EA TRANSDERMAL TD SCH (09:00)
[2021-02-03] MEDS: ESCITALOPRAM OXALATE 10 MG TAB (LEXAPRO) PO SCH (09:55)
[2021-02-03] MEDS: glipiZIDE XL 5 MG TABCR PO SCH (09:56)
[2021-02-03] MEDS: QUEtiapine FUMARATE 100 MG TAB PO SCH ×2 (09:56→21:02)
[2021-02-03 15:15] LABS: BASO % 0.8 % (0.0-1.0); EOS # 0.2 10^3/uL (0.0-0.5); EOS % 3.4 % (0.0-3.0); HEMOGLOBIN 14.4 g/dl (13.5-17.5); LYMPH # 2.9 10^3/uL (1.5-5.0); LYMPH % 55.2 % (24.0-44.0); MEAN CORPUSCULAR HGB CONC 34.3 g/dl (32.0-36.5); MEAN CORPUSCULAR VOLUME 81.7 fl (80.0-96.0); MONO # 0.4 10^3/uL (0.0-0.8); MONO % 6.7 % (2.0-8.0); NEUTROPHILS # 1.8 10^3/uL (1.5-8.5); NEUTROPHILS % 33.7 % (36.0-66.0); PLATELET COUNT, AUTOMATED 233 10^3/uL (150-450); RED BLOOD COUNT 5.14 10^6/uL (4.30-6.10); WHITE BLOOD COUNT 5.2 10^3/uL (4.0-10.0)
[2021-02-03 15:42] LABS: CALCIUM LEVEL 8.4 MG/DL (8.5-10.1); CREATININE FOR GFR 1.4 MG/DL (0.70-1.30); GLOMERULAR FILTRATION RATE 55.6 (>56); POTASSIUM SERUM 4.8 MEQ/L (3.5-5.1)
--- NOTE | 2021-02-03 16:21 | MHIPNPDOC ---
[facility] Progress Note Progress Note DATE OF SERVICE: 02/03/21 HISTORY: Patient is a 56-year-old Single, homeless, unemployed, Male who is admitted because of bizarre behavior. Patient is well known to this facility having numerous admissions to this facility. He has a history of schizophrenia versus schizoaffective disorder, homelessness, polysubstance abuse, substance-induced psychotic disorder, multiple inpatient visits, Last [facility] visit was September 2020. He presented with EMS after being found by police in the facility at the [facility], because the alarm was triggered and he happened to be in the area. Drug screen was positive for cannabis, cocaine, and amphetamines. The patient was acting bizarrely, making statements that he was in [employer], was swearing at "[employer]", belie ed that he was fighting to save Emily and started walking into traffic oblivious to the cars. He was medicated in the ED with Ativan 6 mg due to his aggression and agitation. VITAL SIGNS: See below. CURRENT MEDICATIONS: See below. MENTAL STATUS EXAMINATION: Patient is a 56-year-old Single, homeless, unemployed, Male who is admitted because of bizarre behavior. Speech: Is normal rate tone and volume patient had minimal responses Language skills are intact. Thought processes including: Linear and goal oriented. Thought content: Denies depression and anxiety denies suicidal ideations denies homicidal ideations denies planning or intent. Abstract reasoning, and computation: Fair. Description of associations: Denies. Description of abnormal or psychotic thoughts: Denies none observed Judgment: Fair Insight: Fair Orientation: Alert and oriented x3. Recent and remote memory: Fairly intact Attention span and concentration: Fair Language: Expansive Fund of knowledge: Below average Mood: Euthymic Affect: Drowsy/ Euthymic DIAGNOSES: Schizoaffective disorder bipolar type Cocaine use disorder Cannabis use disorder Methamphetamine use disorder Nicotine use disorder History of noncompliance of medication ASSESSMENT: Patient seen in his bedroom. His mood is good using good humor and plans to go to rehabilitation. He is out late in the evening but sleeps most of the morning. Denies depression and anxiety, denies suicidal ideations/homicidal ideation, planning or intent. He is not observed with tana, ruminations, paranoia, delusions or AH/VH. Patient out for meds and meals and social in the evenings. Patient is being discharged to [facility] facility. Staff claims he is doing well compared to previously, Discharge is planned Time spent 35 minutes Vital Signs Vital Signs Date Time Temp Pulse Resp B/P (MAP) Pulse Ox O2 Delivery O2 Flow Rate FiO2 02/03/21 09:56 114/65 02/02/21 18:26 97.3 98 18 02/02/21 06:24 99 Room Air Laboratory Data 24H Labs Laboratory Tests 2 02/02/21 16:48: Bedside Glucose (Misc Panel) 162H 02/02/21 20:19: Bedside Glucose (Misc Panel) 121H 02/03/21 06:19: Bedside Glucose (Misc Panel) 89 02/03/21 12:02: Bedside Glucose (Misc Panel) 112H 02/03/21 12:43: Bedside Glucose (Misc Panel) 134H 02/03/21 14:55: Immature Granulocyte % (Auto) 0.2, Neutrophils (%) (Auto) 33.7L, Lymphocytes (%) (Auto) 55.2H, Monocytes (%) (Auto) 6.7, Eosinophils (%) (Auto) 3.4H, Basophils (%) (Auto) 0.8, Neutrophils # (Auto) 1.8, Lymphocytes # (Auto) 2.9, Monocytes # (Auto) 0.4, Eosinophils # (Auto) 0.2, Basophils # (Auto) 0.0, Nucleated Red Blood Cells % (auto) 0.0, Anion Gap 7L, Glomerular Filtration Rate 55.6L, Calcium Level 8.4L CBC/BMP Laboratory Tests 02/03/21 14:55 Current Medications Current Medications Medications (Trade) Dose Ordered Sig/Preston Route PRN Reason Start Time Stop Time Status Last Admin Dose Admin Acetaminophen (Tylenol Tab) 650 mg Q6HP PRN PO HEADACHE or MILD DISCOMFORT 01/16/21 14:55 Al Hydrox/Mg Hydrox/Simethicone (Mylanta) 30 ml Q4HP PRN PO HEARTBURN/INDIGESTION 01/16/21 14:55 Dextrose (Dextrose 50%) 25 ml ASDIRECTED PRN IV SEE LABEL COMMENTS 01/16/21 14:55 Diphenhydramine HCl (Benadryl) 50 mg Q6HP PRN PO ANXIETY/AGITATION 01/16/21 14:55 Escitalopram Oxalate (Lexapro) 10 mg DAILY PO 01/22/21 09:00 02/01/21 13:03 DC 02/01/21 09:55 Escitalopram Oxalate (Lexapro) 20 mg DAILY PO 02/02/21 09:00 02/03/21 09:55 Glipizide (Glucotrol Xl) 10 mg DAILY PO 01/17/21 09:00 02/03/21 09:56 Glucagon (Glucagon) 1 mg ASDIRECTED PRN SC SEE LABEL COMMENTS 01/16/21 14:55 Glucose (Glucose) 16 GM ASDIRECTED PRN PO SEE LABEL COMMENTS 01/16/21 14:55 Home Med (Home Med List Complete!) ASDIRECTED XX 01/16/21 14:20 01/16/21 14:33 DC Insulin Human Lispro (HumaLOG INSULIN) See Protocol Table AC SC 01/16/21 17:30 02/03/21 12:59 DC 02/02/21 17:13 Insulin Human Lispro (HumaLOG INSULIN) See Protocol Table QHS SC 01/16/21 21:00 02/03/21 12:59 DC Lisinopril (Prinivil) 10 mg DAILY PO 02/04/21 09:00 Lisinopril (Prinivil) 20 mg DAILY PO 01/17/21 09:00 02/03/21 12:58 DC 02/03/21 09:56 Lorazepam (Ativan) 1 mg STAT STAT PO 01/16/21 08:38 01/16/21 08:40 DC 01/16/21 08:48 Lorazepam (Ativan) 2 mg Q6HP PRN PO ANXIETY/AGITATION 01/16/21 14:55 01/22/21 12:59 DC Lorazepam (Ativan) 2 mg STAT STAT IV 01/16/21 02:41 01/16/21 02:42 DC 01/16/21 02:45 Lorazepam (Ativan) 2 mg STAT STAT IV 01/16/21 02:58 01/16/21 02:59 DC 01/16/21 03:09 Lorazepam (Ativan) 2 mg STAT STAT IV 01/16/21 03:32 01/16/21 03:33 DC 01/16/21 03:47 Magnesium Hydroxide (Milk Of Magnesia) 30 ml DAILYPRN PRN PO CONSTIPATION 01/16/21 14:55 01/30/21 17:11 Miscellaneous (Unresolved Clarification Entry) SEE LABEL COMMENTS DAILY XX 01/21/21 09:00 01/22/21 13:40 DC Nicotine (Nicoderm Cq 21mg) 1 patch DAILY TD 01/17/21 09:00 01/23/21 09:11 Olanzapine (ZyPREXA) 10 mg Q6HP PRN PO ANXIETY/AGITATION 01/16/21 14:55 Quetiapine Fumarate (SEROquel) 300 mg BID PO 01/17/21 09:00 02/03/21 09:56 Trazodone HCl (Desyrel) 150 mg QHS PO 01/16/21 21:00 02/02/21 20:48 Allergies Coded Allergies: chlorpromazine (Verified Allergy, Unknown, 10/22/20) haloperidol (Verified Adverse Reaction, Unknown, unknown, 07/27/20) Per brother, there was a reaction in the past the nursing home. He was unable to describe the reaction. VLAD MORELAND MD Feb 03, 2021 16:21
[2021-02-03 17:53] VITALS: BP 112/70
[2021-02-03] MEDS: traZODone 50 MG TAB PO SCH (21:02)
[2021-02-04 06:11] VITALS: BP 145/84
[2021-02-04] MEDS: NICOTINE 21MG/24HR 1 EA TRANSDERMAL TD SCH ×2 (09:00→09:06)
[2021-02-04 09:07] VITALS: BP 132/83
[2021-02-04] MEDS: QUEtiapine FUMARATE 100 MG TAB PO SCH (09:07)
[2021-02-04] MEDS: glipiZIDE XL 5 MG TABCR PO SCH (09:07)
[2021-02-04] MEDS: ESCITALOPRAM OXALATE 10 MG TAB (LEXAPRO) PO SCH (09:07)
--- NOTE | 2021-02-04 15:50 | MHDSPDOC ---
[facility] Discharge Summary Discharge Summary DATE OF ADMISSION: Jan 16, 2021 at 14:51 DATE OF DISCHARGE: Feb 04, 2021 at 12:46 DISCHARGE DIAGNOSES: Schizoaffective disorder bipolar type Cocaine use disorder Cannabis use disorder Methamphetamine use disorder Nicotine use disorder History of noncompliance of medication REASON FOR ADMISSION: Patient is a 56-year-old Single, homeless, unemployed, Male who is admitted because of bizarre behavior. Patient is w ell known to this facility having numerous admissions to this facility. He has a history of schizophrenia versus schizoaffective disorder, homelessness, polysubstance abuse, substance-induced psychotic disorder, multiple inpatient visits, Last [facility] visit was September 2020. He presented with EMS after being found by police in the facility at the [facility], because the alarm was triggered and he happened to be in the area. Drug screen was positive for cannabis, cocaine, and amphetamines. The patient was acting bizarrely, making statements that he was in [employer], was swearing at "an [employer]", believed that he was fighting to save Emily and started walking into traffic oblivious to the cars. He was medicated in the ED with Ativan 6 mg due to his aggression and agitation. VITAL SIGNS: See below. CONSULTANTS INVOLVED: See Medical H + P by Hospitalist TREATMENT AND PROGRESS ON THE UNIT: Patient was admitted to the [facility] on a 9.39 legal status was afforded the following treatment modalities: 1) Individual Therapy 2) Group Therapy 3) Medication Management 4) Milieu Therapy 5) Safe Environment HOSPITAL COURSE: Patient was admitted to [facility] on a 9.39 legal status. Initially patient was observed with psychosis. He was given Pt found medications beneficial and tolerated them well. Mood, anxiety, and intrusive thoughts improved with treatment. Pt attended groups daily during stay. Pts symptoms improved with treatment. Patient requested to be discharged to a rehab facility reporting that his drug of choice was cocaine and methamphetamines. Patient was cooperative on the unit, social with peers and nominal participation in groups. On day of discharge pt. denied depression, anxiety, insomnia, SI/HI, hallucinations, delusions. Pt was discharged home with follow-up will be arranged by [facility] facility. Pt felt safe for discharge. DISCHARGE ASSESSMENT: Patient was not assessed face to face due to provider not being able to be in hospital at the time of his discharge. Patient has been seen for 7 days in succession prior to this phone interview. Patient is aware that his discharge interview is on the phone. In today's interview, patient is alert and oriented, In the phone interview is pleasant and engaged in the interview. Denies depression and anxiety. Denies suicidal and homicidal ideation, planning or intent. Denies and is not observed with tana, psychotic symptoms of delusions, bizarre thinking, obsessions, paranoia, ruminations illogical thoughts, flight of ideas or having poor insight and judgement. Reinforced with patient need to abstain from alcohol and drugs. At discharge patient has normal mentation, declines further hospitalization on a voluntary status and meets criteria for discharge today. He is aware that he is being admitted to [facility] facility which is at his request. Discussed indications of medications, potential benefits and risks, alternatives (including no treatment) and questions were encouraged and answered. MENTAL STATUS EXAMINATION ON DISCHARGE: 56-year-old Single, homeless, unemployed, Male who is admitted because of bizarre behavior due to admitted substance use. Speech: Is fluid, conversant, normal rate, tone and volume Language skills are intact Thought processes including: linear and goal oriented Thought content: denies depression and anxiety. Denies suicidal/homicidal ideation, planning or intent. Abstract reasoning, and computation: fair Description of associations: denies, none observed Description of abnormal or psychotic thoughts: denies, none observed. Judgment: fair Insight: fair Orientation: alert and oriented to person, place, time and situation Recent and remote memory: intact Attention span and concentration: good Language: expansive Fund of knowledge: average Mood: Euthymic Mood Affect: reactive Suicide Risk Assessment: 1) Does the patient wish to be ? No 2) Since your admission, have you had any actual thought of killing yourself? No 3) Since your admission, have you been thinking about how you might do this? No 4) Since your admission, have you had these thoughts and had some intention of acting on them? No 5) Since your admission, have you started to work out or worked out the details of how to kill yourself? No 5A) Do you intent to carry out this plan? No and NA 6) Have you ever done anything, started anything, or prepared to do anything with any intent to ? No 6A) How long since your admission did you do any of these? NA MEDICATIONS ON DISCHARGE: See Medication Reconciliation PLAN/FOLLOWUP ARRANGEMENTS: Patient was discharged and was going to [facility] facility The amount of time spent in the coordination of care for this patient was approximately 25 minutes. ETOH/Disorder Med Rx ETOH/DRUG DISORDER RX: N/A (Patient is going to [facility]stance Abuse Treatment Facility where they will address this. ) Vital Signs/I&Os Vital Signs Date Time Temp Pulse Resp B/P (MAP) Pulse Ox O2 Delivery O2 Flow Rate FiO2 02/04/21 09:07 132/83 02/04/21 06:11 97.0 70 16 98 Room Air Laboratory Data Labs 24H Laboratory Tests 2 02/04/21 06:38: [facility] 121H Medications Scheduled Alogliptin Veto/Metformin HCl (Alogliptin-Metformin 12.5-1000) 1 Each Tablet, 1 TAB PO BID for Diabetes, #14 Escitalopram Oxalate (Lexapro) 20 Mg Tablet, 20 MG PO DAILY for Depression for 7 Days, #7 Glipizide (Glipizide ER) 10 Mg Tab.er.24, 10 MG PO DAILY for Diabetes, #7 Lisinopril (Lisinopril) 20 Mg Tablet, 20 MG PO DAILY for Blood Pressure, #7 Nicotine (Nicotine Patch) 21 Mg Patch.td24, 1 PATCH TD DAILY for Nicotine Withdrawal, #7 Paliperidone Palmitate (Invega Sustenna) 234 Mg/1.5 Ml Syringe, 234 MG IM QMONTH for Psychosis, #1 VERIFIED WITH [facility], NEXT DOSE DUE 02/22 Quetiapine Fumarate (Quetiapine Fumarate) 300 Mg Tablet, 300 MG PO BID for Mood for 7 Days, #14 Trazodone HCl (Trazodone HCl) 150 Mg Tablet, 150 MG PO QHS for Insomnia, #7 Allergies Coded Allergies: chlorpromazine (Verified Allergy, Unknown, 10/22/20) haloperidol (Verified Adverse Reaction, Unknown, unknown, 07/27/20) Per brother, there was a reaction in the past the skilled nursing. He was unable to describe the reaction. REGINE JACK SUGAR CHIPPER MACHINE OPERATOR Feb 04, 2021 15:49
== END 2021-02-04 12:46 | disposition home or self-care (01) | DRG 750 ==
LOC: M ED 00:05 → M ED INP 14:51 → M PSY 16:00
PROVIDERS: ADMIT Psychiatry & Neurology Psychiatry; ATTEND Psychiatry & Neurology Psychiatry
DX: F25.0 Schizoaffective disorder, bipolar type (principal); N17.9 Acute kidney failure, unspecified; Z91.14 Patient's other noncompliance with medication regimen; E11.9 Type 2 diabetes mellitus without complications; Z59.0 Homelessness; F12.90 Cannabis use, unspecified, uncomplicated; F17.200 Nicotine dependence, unspecified, uncomplicated; F15.90 Other stimulant use, unspecified, uncomplicated; F14.90 Cocaine use, unspecified, uncomplicated; Z79.899 Other long term (current) drug therapy; Z88.8 Allergy status to other drugs, medicaments and biological substances; J44.9 Chronic obstructive pulmonary disease, unspecified; I10 Essential (primary) hypertension; G47.33 Obstructive sleep apnea (adult) (pediatric); E87.6 Hypokalemia